=== PATIENT | male | born 1950 | race American Indian/Alaskan Native ===

== ENCOUNTER 2017-05-10 05:25 | Inpatient (IN) | payer OTHER, BC ==
[2017-05-06 07:53] VITALS: BMI 30.9
[~2017-05-10 05:25] MED LIST: BACITRACIN 15 GM TUBE TOPICAL OINTMENT TP ONE
[2017-05-10] MEDS ORDERED: ROCURONIUM BROMIDE 50 MG/5 ML VIAL ONE (07:53)
[2017-05-10] MEDS ORDERED: SUCCINYLCHOLINE CHLORIDE 200 MG/10 ML VIAL ONE (07:53)
[2017-05-10] MEDS ORDERED: PROPOFOL 20 ML ONE ×12 (07:53→12:59)
[2017-05-10] MEDS ORDERED: MIDAZOLAM HCL 2 MG/2 ML SINGLE DOSE VIAL ONE ×5 (07:53)
[2017-05-10] MEDS ORDERED: BACITRACIN 15 GM TUBE TOPICAL OINTMENT ONE (07:56)
[2017-05-10] MEDS ORDERED: CEFAZOLIN 2 GM in DEXTROSE 5%-WATER - 100 ML IVPB ONE (08:27)
--- NOTE | 2017-05-10 08:30 | HP ---
Admitting History and Physical - Admission History of Present Illness: The patient is a 67 yo male who presents today for revision of L4-S1 fusion. He originally had surgery 12/23/15 with a L4-S1 laminectomy and fusion. He did not heal the fusion well despite wearing a LSO brace and use of an external bone stimulator. The patient ambulates with a cane has has a right foot drop. He denies any CP, SOB, fevers. History Source: Patient Limitations to Obtaining History: No Limitations - Past Medical History Cardiovascular: Yes: Aneurysm, HTN, Hyperlipdemia Gastrointestinal: Yes: GERD Renal/: No: Renal Failure, UTI Psych: Yes: Depression Musculoskeletal: Yes: Other (right foot drop) Endocrine: Yes: Diabetes Mellitus Additional Past Medical History: glaucoma - Past Surgical History Additional Past Surgical History: 12/23/15 L4-S1 spinal fusion - Smoking History Smoking history: Former smoker Have you smoked in the past 12 months: No If you are a former smoker, when did you quit?: 2004 - Alcohol/Substance Use Hx Alcohol Use: No - Social History ADL: Independent History of Recent Travel: No Home Medications - Allergies Allergies/Adverse Reactions: Allergies Allergy/AdvReac Type Severity Reaction Status Date / Time codeine Allergy Intermediate Itching Verified 05/10/17 06:47 morphine Allergy Unknown Verified 05/06/17 08:10 - Home Medications Home Medications: Ambulatory Orders Bimatoprost [Lumigan] 2.5 ml OP HS 12/13/15 Cyclobenzaprine HCl [Flexeril -] 10 mg PO TID PRN 12/13/15 Metoprolol Succinate [Toprol XL -] 1 tab PO DAILY 12/13/15 Olmesartan/Hydrochlorothiazide [Benicar Hct 20-12.5 mg Tablet] 1 tab PO DAILY Atorvastatin Ca [Lipitor] 20 mg PO HS tablet 12/26/15 Hydrochlorothiazide [Hctz -] 12.5 mg PO DAILY cap 12/26/15 Insulin Sliding Scale [Novolog Vial Sliding Scale -] 1 vial SQ ACHS units 12/26 Loratadine [Claritin -] 10 mg PO DAILY PRN #30 tablet 12/26/15 Pantoprazole Sodium [Protonix -] 20 mg PO DAILY tablet.ec 12/26/15 Sitagliptin Phosphate [Januvia -] 50 mg PO DAILY@0700 tablet 12/26/15 Tapentadol Hydrochloride [Nucynta -] 50 mg PO Q6H PRN #0 tablet 12/26/15 Timolol 0.5% [Timoptic 0.5%] 1 drop OU BID drops 12/26/15 Valsartan [Diovan] 160 mg PO DAILY tablet 12/26/15 Aspirin [ASA -] 81 mg PO DAILY 05/06/17 Insulin (Novolog 70/30) [Novolog Mix 70/30 Flexpen -] 0 units SQ TID 05/06/17 Sertraline HCl 50 mg PO DAILY 05/06/17 Sitagliptin Phos/Metformin HCl [Janumet 50-500 mg Tablet] 1 each PO BID Review of Systems - Review of Systems Constitutional: denies: Chills, Fever Neck: denies: Decreased ROM, Pain on Movement Cardiovascular: denies: Chest Pain, Edema, Palpitations Respiratory: denies: Cough, SOB Gastrointestinal: denies: Abdominal Pain, Melena Genitourinary: denies: Burning, Dysuria Musculoskeletal: reports: Back Pain, Extremity Pain (to b/l lower ext). denies : Joint Pain, Joint Swelling Neurological: reports: Parasthesia (to b/l lower ext), Other (right foot drop). denies: Headache, Seizure Hematology/Lymphatic: denies: Easily Bruised, Excessive Bleeding Physical Examination Vital Signs: Vital Signs Temperature Pulse Rate Respiratory Rate Blood Pressure O2 Sat by Pulse Oximetry (%) 99 05/10/17 06:45 Constitutional: Yes: Well Nourished, Calm Eyes: Yes: Conjunctiva Clear. No: Sclera Icterus HENT: Yes: WNL, Atraumatic, Normocephalic Neck: Yes: WNL, Supple, Trachea Midline Cardiovascular: Yes: WNL, Regular Rate and Rhythm Respiratory: Yes: WNL, Regular, CTA Bilaterally Gastrointestinal: Yes: WNL, Normal Bowel Sounds, Soft Extremities: No: Calf Tenderness, Cold Edema: No Peripheral Pulses WNL: Yes Peripheral Pulses: Left Doralis Pedis: 1+, Right Dorsalis Pedis: 1+ Wound/Incision: Yes: Clean/Dry, Well Approximated (to lower back) Neurological: Yes: WNL, Oriented ...Motor Strength: WNL, LUE, LLE, RUE, RLE (4/5 dorsi flexion, plantar extension to the right) Psychiatric: Yes: WNL, Alert, Oriented Assessment/Plan A/P: 67 yo male for revision of L4-S1 interbody fusion secondary to non healing fusion and right S1 disconnected screw/junction. He is also noted to have T10- 11 disc protrusion He remains npo and take his beta concepcion this am DVT ppx with Adilson/SCDs Iv abx at time of skin incision medical/clearance with cardiology clearance in his chart, nuclear stress test 04/30/17 without any ischemia
[2017-05-10] MEDS ORDERED: ceFAZolin SODIUM 1 GM VIAL IVPB ONE (09:30)
[2017-05-10] MEDS ORDERED: THROMBIN (BOVINE) 5,000 UNIT VIAL TP ONE (09:40)
[2017-05-10] MEDS ORDERED: BACITRACIN 50,000 UNITS VIAL TP ONE ×2 (09:40→12:30)
[2017-05-10] MEDS ORDERED: BUPIVACAINE HCL/PF 0.5% (5MG/ML) 10 ML VIAL IJ ONE (10:43)
[2017-05-10] MEDS ORDERED: METOPROLOL TARTRATE 5 MG/5 ML VIAL ONE (12:51)
[2017-05-10] MEDS ORDERED: hydrALAZINE HCL 20 MG/ML VIAL ONE (13:14)
[2017-05-10] MEDS ORDERED: ONDANSETRON 4 MG/2 ML VIAL ONE (13:41)
--- NOTE | 2017-05-10 13:59 | OP ---
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
[2017-05-10] MEDS ORDERED: BACITRACIN 15 GM TUBE TOPICAL OINTMENT TP ONE (14:19)
[2017-05-10] MEDS ORDERED: BISACODYL 10 MG SUPP.RECT RC PRN (14:20)
[2017-05-10] MEDS ORDERED: TAPENTADOL HYDROCHLORIDE 50 MG TABLET PO PRN (14:23)
[2017-05-10] MEDS ORDERED: LORATADINE 10 MG TABLET PO PRN (14:23)
[2017-05-10] MEDS ORDERED: HYDROmorphone HCL CARPU-JECT 1 MG/1 ML DISP.SYRIN IVPUSH PRN (14:44)
[2017-05-10] MEDS ORDERED: LACTATED RINGERS SOLUTION 1,000 ML IV SCH (14:45)
[2017-05-10 15:41] LABS: MCH 34.2 pg (25.7-33.7); MCHC 34.1 g/dl (32.0-35.9); MEAN CELL VOLUME 100.4 fl (80-96); MEAN PLT VOLUME 8.4 fl (7.5-11.1); PLATELET COUNT 155 K/MM3 (134-434); RDW 14.5 % (11.9-15.9); WHITE BLOOD COUNT 10.6 K/mm3 (4.0-10.0)
[2017-05-10] MEDS ORDERED: HYDROmorphone *PCA* 10MG/50ML DISP.SYRIN PCA ONE (15:43)
[2017-05-10 16:10] LABS: ANION GAP 11 (8-16); CALCIUM 8.5 mg/dL (8.5-10.1); CO2 25 mmol/L (21-32); CREATININE 0.9 mg/dL (0.7-1.3); GLUCOSE,RANDOM 220 mg/dL (74-106)
--- NOTE | 2017-05-10 16:27 | SURG ---
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 For further detail, please refer to operative report. Visit type - Case Type Case Type: Scheduled Admission - Emergency Emergency Visit: No - New patient This patient is new to me today: Yes Date on this admission: 05/10/17 - Critical Care Critical Care patient: No
[2017-05-10] MEDS: D5-1/2NS+20 MEQ KCL - 1,000 ML IV SCH (16:55)
[2017-05-10] MEDS: INSULIN SLIDING SCALE (NOVOLOG) 1 VIAL SQ SCH ×2 (17:47→22:15)
--- NOTE | 2017-05-10 17:51 | PN ---
Progress Note (short form) - Note Progress Note: NEUROSURGERY Mild incisional pain Still sleepy Seen in PACU earlier AF, VSS Moving B UE/LE; R LE weaker as previously Dressing intact Cont BILL drain Labs OK PT in am OOB with LSO brace Findings including MEP d/w family ERP MANAGER for pain
[2017-05-10] MEDS ORDERED: ceFAZolin SODIUM 1 GM VIAL ONE ×2 (17:59→21:43)
[2017-05-10] MEDS ORDERED: CEFAZOLIN 1 GM/D5W 50 ML IVPB SCH (18:00)
[2017-05-10] MEDS ORDERED: DEXTROSE 5%-WATER - 50 ML IVPB ONE ×2 (18:00→21:43)
[2017-05-10] MEDS: CEFAZOLIN 1 GM in DEXTROSE 5%-WATER - 50 ML IVPB SCH (18:02)
[2017-05-10] MEDS ORDERED: ACETAMINOPHEN 1000 MG/100 ML VIAL (NON FORMULARY) IVPB ONE (20:30)
[2017-05-10] MEDS: diazePAM 5 MG TABLET PO SCH ×2 (22:07→22:08)
[2017-05-10] MEDS: TIMOLOL 0.5% OPHTHALMIC SOL 5 ML BOTTLE OU SCH (22:08)
[2017-05-10] MEDS: DOCUSATE SODIUM 100 MG CAPSULE (FP) PO SCH (22:09)
[2017-05-10] MEDS: ATORVASTATIN CA 20 MG TABLET (FP) PO SCH (22:09)
[2017-05-11] MEDS: CEFAZOLIN 1 GM in DEXTROSE 5%-WATER - 50 ML IVPB SCH ×2 (01:58→10:24)
[2017-05-11] MEDS: INSULIN SLIDING SCALE (NOVOLOG) 1 VIAL SQ SCH ×4 (06:29→22:00)
[2017-05-11] MEDS: diazePAM 5 MG TABLET PO SCH ×3 (06:31→22:01)
[2017-05-11] MEDS: DOCUSATE SODIUM 100 MG CAPSULE (FP) PO SCH ×3 (06:31→22:00)
[2017-05-11] MEDS: ACETAMINOPHEN 325 MG TABLET (FP) PO PRN ×2 (06:32→22:02)
[2017-05-11] MEDS: sitaGLIPtin PHOSPHATE 50 MG TABLET PO SCH (06:38)
[2017-05-11 07:51] LABS: MCH 34.9 pg (25.7-33.7); MCHC 34.7 g/dl (32.0-35.9); MEAN CELL VOLUME 100.6 fl (80-96); MEAN PLT VOLUME 8.5 fl (7.5-11.1); PLATELET COUNT 123 K/MM3 (134-434); RDW 14.6 % (11.9-15.9); WHITE BLOOD COUNT 10.3 K/mm3 (4.0-10.0)
--- NOTE | 2017-05-11 08:20 | PN ---
Progress Note (short form) - Note Progress Note: NEUROSURGERY Moderate incisional pain Still sleepy Seen in PACU earlier Tmax 101; now 100, MO 110's, VSS Drain 180cc yesterday; 70cc today Moving B UE/LE; R LE weaker as previously Dressing changed; some drainage on drain site Cont BILL drain WBC 10.3, Hgb 11.7; Cr 0.9, BUN 13; glucose 220 PT/OOB Cont iv abx with drain and temp OOB with LSO brace CORPORATE ASSOCIATE ATTORNEY for pain D/C drain tomorrow if decreasing output D/C Kumar in AM
--- NOTE | 2017-05-11 08:41 | PN ---
Progress Note (short form) - Note Progress Note: Cardiology Consult Dictated Sinus tachycardia s/p lumbar and thoracic laminectomies, and revision of prior laminectomy Chronic HTN DM Stable 4cm thoracic aortic aneurysm Mild bilateral carotid atheromatous dz REC: Probable physiologic sinus tach post op, due to post op pain. Rocky continue home meds as ordered for now. Hydrate, analgesia. ECG
[2017-05-11] MEDS ORDERED: PATIENT'S OWN MEDICATION (NON-FORMULARY) (Olmesartan/Hydrochlorothiazide [Benicar Hct 20-1 PO SCH (10:00)
[2017-05-11] MEDS ORDERED: PT OWN MED DRAWER 7, Y5N ONE ×2 (10:18→18:12)
[2017-05-11] MEDS ORDERED: ceFAZolin SODIUM 1 GM VIAL ONE (10:18)
[2017-05-11] MEDS ORDERED: DEXTROSE 5%-WATER - 50 ML IVPB ONE (10:18)
[2017-05-11] MEDS: VALSARTAN 160 MG TABLET (UD) PO SCH (10:24)
[2017-05-11] MEDS: HYDROCHLOROTHIAZIDE 12.5 MG CAPSULE (FP) PO SCH (10:25)
[2017-05-11] MEDS: PANTOPRAZOLE 20 MG TABLET (FP) PO SCH (10:25)
[2017-05-11] MEDS: SERTRALINE HCL 50 MG TABLET (FP) PO SCH (10:25)
[2017-05-11] MEDS: METOPROLOL SUCCINATE 25 MG TAB.SR.24H (FP) PO SCH (10:25)
--- NOTE | 2017-05-11 11:18 | CONS ---
CARDIOLOGY CONSULTATION DATE OF CONSULTATION: 05/11/2017 REQUESTING PHYSICIAN: Feliciano Hagan MD REASON FOR CONSULTATION: Tachycardia. HISTORY OF PRESENT ILLNESS: The patient is a 67-year-old male with past medical history of hypertension; hyperlipidemia; diabetes; chronic diastolic CHF; stable small, 4-cm thoracic aortic aneurysm; bilateral nonobstructive carotid artery disease; who is postoperative day 1 after partial T10/T11 laminectomies, T11 transpedicular decompression with microdissection, and expansion of prior laminectomies at L3-4, L5-S1. We are called to evaluate him for mild sinus tachycardia postoperatively. Patient is alert and oriented, eating breakfast. He denies chest pain, shortness of breath, palpitations. He has a low-grade postoperative fever of 100 Fahrenheit and is complaining of mild back pain. His heart rate has been ranging between 115 and 120 in sinus tachycardia, with a stable blood pressure between 120 and 140 systolic. He is in no distress. PAST MEDICAL HISTORY: Outlined above and includes prior back surgeries. ALLERGIES: He is allergic to CODEINE and MORPHINE. ACTIVE MEDICATIONS: Include Tylenol 650 p.o. q.6 p.r.n., Lipitor 20 nightly, cefazolin, valium 5 mg p.o. t.i.d., Colace, hydrochlorothiazide 12.5 daily, Dilaudid p.r.n., insulin sliding scale, Toprol-XL 25 mg daily, Zofran 4 mg q.6 p.r.n., Protonix 20 mg daily, Zoloft 50 mg daily, Januvia 50 mg daily, Diovan 160 mg daily. FAMILY HISTORY: Noncontributory to this presentation. SOCIAL HISTORY: , former smoker. PHYSICAL EXAMINATION: General: Alert, oriented. No distress. HEENT: Anicteric. Vital Signs: Temperature 100 Fahrenheit; pulse 116, regular; blood pressure 129/78. Neck: No bruits. Heart: S1, S2. Regular rate and rhythm. No murmurs. Chest: Clear. Abdomen: Mildly distended. Positive bowel sounds. No rebound or guarding. Extremities: No edema. EKG is pending. DATA: Nuclear stress test with Persantine April 30, 2017: No ischemia. EF 48%. CTA chest, [facility], July 2016: Stable 4-cm, diffuse thoracic aortic aneurysm, unchanged from prior. Labs: White count 10.3, hematocrit 33.6, platelets 123. Sodium 139, potassium 4.2, BUN 13, creatinine 0.9, glucose 220, calcium 8.5. IMPRESSION: 1. Probable physiologic sinus tachycardia postoperatively. 2. Hypertension, chronic. 3. Diabetes. 4. Stable 4-cm thoracic aortic aneurysm. PLAN: 1. Continue hydration and analgesia for his mild postoperative pain. Heart rate should improve with hydration and control of postoperative pain. 2. Would continue home blood pressure medications as ordered. 3. EKG today. Thank you for the consultation. DANDRE SILVA M.D. [id number]
[2017-05-11] MEDS ORDERED: INSULIN (NOVOLOG) ASPART 100 UNITS/ML 10ML VIAL ONE (12:14)
[2017-05-11] MEDS: TIMOLOL 0.5% OPHTHALMIC SOL 5 ML BOTTLE OU SCH ×2 (13:00→22:01)
--- NOTE | 2017-05-11 13:12 | EKG ---
Test Reason : Blood Pressure : / mmHG Vent. Rate : 122 BPM Atrial Rate : 122 BPM P-R Int : 168 ms QRS Dur : 072 ms QT Int : 330 ms P-R-T Axes : 035 -33 008 degrees QTc Int : 470 ms SINUS TACHYCARDIA WITH OCCASIONAL SUPREVENTRICULAR PREMATURE BEATS LEFT AXIS DEVIATION NONSPECIFIC ST ABNORMALITY WHEN COMPARED WITH ECG OF 28-APR-2017 09:44, APPEARANCE OF SPBs Confirmed by LALO HERNANDEZ MD ([id number]) on 05/11/2017 1:11:46 PM Referred By: Dez LABOY Confirmed By:LALO HERNANDEZ MD
--- NOTE | 2017-05-11 14:49 | PN ---
Progress Note (short form) - Note Progress Note: Anesthesiology Postoperative Follow Up Note 67 yo M with a PMH of HTN, HLD, DM, diastolic CHF, stable 4cm thoracic AAA, bilateral nonobstructive carotid disease who is POD1 redo spinal fusion and decompression with EBL 150cc. Patient had sinus tachycardiac today to 120s and was seen by dwarf tree grower, EKG showed sinus tachycardia at 122bpm with occassional PVCs, no acute changes. Patient is receiving Dialaudid AUTOMOTIVE SERVICE MANAGER with 70 demands, 19 deliveries (4.8 mg total including additional bolus doses by the nurse as patient was in pain earlier today). He is currently sleeping but arousable and AOx3. VSS, labs stable. 67 yo M POD1 redo spinal fusion and decompression, with sinus tachycardia no signs of ischemia, sleeping comfortably on Dilaudid AUTOMOTIVE SERVICE MANAGER. Decrease AUTOMOTIVE SERVICE MANAGER over next 24 hours to improve mental status and better evaluate patient's pain. Geneva Dean MD Anesthesiology
[2017-05-11] MEDS: HYDROmorphone *PCA* 10MG/50ML DISP.SYRIN PCA SCH ×2 (17:46→18:43)
[2017-05-11] MEDS: D5-1/2NS+20 MEQ KCL - 1,000 ML IV SCH ×2 (17:49→17:51)
[2017-05-11] MEDS: INSULIN (NOVOLOG MIX 70/30) 100 UNITS/ML MDV SQ SCH ×2 (17:52→21:57)
[2017-05-11] MEDS ORDERED: HYDROmorphone *PCA* 10MG/50ML DISP.SYRIN PCA ONE (18:25)
[2017-05-11] MEDS: BIMATOPROST OP SCH ×2 (18:45→22:04)
[2017-05-11] MEDS: ATORVASTATIN CA 20 MG TABLET (FP) PO SCH (22:00)
[2017-05-12] MEDS ORDERED: PT OWN MED DRAWER 7, Y5N ONE ×3 (06:02→11:22)
[2017-05-12] MEDS: sitaGLIPtin PHOSPHATE 50 MG TABLET PO SCH (06:21)
[2017-05-12] MEDS: metFORMIN HCL 500 MG TABLET (FP) PO SCH (06:21)
[2017-05-12] MEDS: DOCUSATE SODIUM 100 MG CAPSULE (FP) PO SCH ×3 (06:21→21:47)
[2017-05-12] MEDS: diazePAM 5 MG TABLET PO SCH ×3 (06:21→21:47)
[2017-05-12] MEDS: INSULIN SLIDING SCALE (NOVOLOG) 1 VIAL SQ SCH ×4 (06:22→22:00)
[2017-05-12] MEDS ORDERED: INSULIN (NOVOLOG) ASPART 100 UNITS/ML 10ML VIAL ONE ×4 (07:03→21:59)
--- NOTE | 2017-05-12 08:06 | PN ---
Progress Note (short form) - Note Progress Note: NEUROSURGERY POD #2 Moderate incisional pain Tmax 100, now 99.4 VSS Cardiology input appreciated Drain 110cc/130/25cc CV- RR; Lungs- decreased BS at bases; Abd- obese, benign; Ext- no sign of DVT Moving B UE/LE R DF 3-4- improved, R PF 4/5; L DF/PF 4+-5 Dressing changed; some drainage on drain site D/C BILL drain PT/OOB OOB with LSO brace ACCOUNT ANALYST for pain D/C Kumar today Observe wound/dressing changes Likely would need rehab given pre-op deficits
--- NOTE | 2017-05-12 08:29 | PN ---
Progress Note, Physician Chief Complaint: denies chest pain or SOB History of Present Illness: ECG confirms sinus tach - Current Medication List Current Medications: Active Medications Acetaminophen (Tylenol -) 650 mg PO Q6H PRN PRN Reason: FEVER Last Admin: 05/11/17 22:02 Dose: 650 mg Atorvastatin Calcium (Lipitor -) 20 mg PO HS [facility] Last Admin: 05/11/17 22:00 Dose: 20 mg Bisacodyl (Dulcolax Suppository -) 10 mg RC DAILY PRN PRN Reason: CONSTIPATION Diazepam (Valium -) 5 mg PO TID [facility] Last Admin: 05/12/17 06:21 Dose: 5 mg Docusate Sodium (Colace -) 100 mg PO TID [facility] Last Admin: 05/12/17 06:21 Dose: 100 mg Hydrochlorothiazide (Hctz -) 12.5 mg PO DAILY [facility] Last Admin: 05/11/17 10:25 Dose: 12.5 mg Hydromorphone HCl (Dilaudid Mapping Technician -) 0 mg DIRECTOR PRIVATE MUSIC THERAPY AGENCY DIRECTOR PRIVATE MUSIC THERAPY AGENCY [facility] PRN Reason: Protocol Stop: 05/13/17 14:46 Last Admin: 05/11/17 18:43 Dose: 0.2 mg Hydromorphone HCl (Dilaudid Injection -) 0.25 mg IVPUSH [id number] PRN PRN Reason: PAIN Stop: 05/13/17 14:45 Potassium Chloride/Dextrose/Sod Cl (D5-1/2ns+20 Meq Kcl -) 1,000 mls @ 42 mls/ hr IV ASDIR [facility] Last Admin: 05/11/17 17:51 Dose: Not Given Cefazolin Sodium 1 gm/ (Dextrose) 50 mls @ 100 mls/hr IVPB Q8H-IV OVI Insulin Aspart (Novolog Vial Sliding Scale -) 1 vial SQ ACHS [facility] PRN Reason: Protocol Last Admin: 05/12/17 06:22 Dose: 2 units Insulin Aspart (Novolog Mix 70/30 Vial) 40 units SQ BID [facility] Last Admin: 05/11/17 21:57 Dose: Not Given Loratadine (Claritin -) 10 mg PO DAILY PRN PRN Reason: NASAL CONGESTION Metformin HCl (Glucophage -) 500 mg PO DAILY@0700 [facility] Last Admin: 05/12/17 06:21 Dose: Not Given Metoprolol Succinate (Toprol Xl -) 25 mg PO DAILY [facility] Last Admin: 05/11/17 10:25 Dose: 25 mg Bimatoprost [Lumigan ] Eyedrop 2.5 Ml (Pt 's Own) 2.5 ml OP HS [facility] Last Admin: 05/11/17 22:04 Dose: 2.5 ml Ondansetron HCl (Zofran Injection) 4 mg IVPB Q6H PRN PRN Reason: NAUSEA AND/OR VOMITING Pantoprazole Sodium (Protonix -) 20 mg PO DAILY [facility] Last Admin: 05/11/17 10:25 Dose: 20 mg Sertraline HCl (Zoloft -) 50 mg PO DAILY [facility] Last Admin: 05/11/17 10:25 Dose: 50 mg Sitagliptin Phosphate (Januvia -) 50 mg PO DAILY@0700 [facility] Last Admin: 05/12/17 06:21 Dose: Not Given Tapentadol (Nucynta -) 50 mg PO Q6H PRN PRN Reason: PAIN Timolol Maleate (Timoptic 0.5%) 1 drop OU BID [facility] Last Admin: 05/11/17 22:01 Dose: 1 drop Valsartan (Diovan -) 160 mg PO DAILY [facility] Last Admin: 05/11/17 10:24 Dose: 160 mg - Objective Vital Signs: Vital Signs Temperature 99.4 F 05/12/17 06:00 Pulse Rate 115 H 05/12/17 06:00 Respiratory Rate 20 05/12/17 06:00 Blood Pressure 129/82 05/12/17 06:00 O2 Sat by Pulse Oximetry (%) 100 05/11/17 21:00 Constitutional: Yes: No Distress Eyes: Yes: Conjunctiva Clear Cardiovascular: Yes: Regular Rate and Rhythm Respiratory: Yes: Other (= breath sounds bilaterally, no wheezing) Gastrointestinal: Yes: Soft Edema: No Neurological: Yes: Alert, Oriented Labs: CBC, BMP 05/11/17 06:00 05/10/17 15:10 - ....Imaging EKG: Image Reviewed Assessment/Plan Sinus tachycardia s/p lumbar and thoracic laminectomies, and revision of prior laminectomy Chronic HTN DM Stable 4cm thoracic aortic aneurysm Mild bilateral carotid atheromatous dz REC: Physiologic sinus tach post op, due to post op pain. Will resolve as patient recovers from surgery. Continue hydration and analgesia. DVT prophylaxis.
[2017-05-12] MEDS ORDERED: ceFAZolin SODIUM 1 GM VIAL ONE ×2 (09:22→17:27)
[2017-05-12] MEDS ORDERED: DEXTROSE 5%-WATER - 50 ML IVPB ONE ×2 (09:23→17:27)
[2017-05-12] MEDS: CEFAZOLIN 1 GM in DEXTROSE 5%-WATER - 50 ML IVPB SCH ×2 (09:44→17:54)
[2017-05-12] MEDS: PANTOPRAZOLE 20 MG TABLET (FP) PO SCH (09:44)
[2017-05-12] MEDS: SERTRALINE HCL 50 MG TABLET (FP) PO SCH (09:44)
[2017-05-12] MEDS: HYDROCHLOROTHIAZIDE 12.5 MG CAPSULE (FP) PO SCH (09:44)
[2017-05-12] MEDS: METOPROLOL SUCCINATE 25 MG TAB.SR.24H (FP) PO SCH (09:44)
[2017-05-12] MEDS: VALSARTAN 160 MG TABLET (UD) PO SCH (09:44)
[2017-05-12] MEDS: TIMOLOL 0.5% OPHTHALMIC SOL 5 ML BOTTLE OU SCH ×2 (09:45→21:50)
--- NOTE | 2017-05-12 11:47 | OP ---
DATE OF OPERATION: 05/10/2017 PREOPERATIVE DIAGNOSES: 1. 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 2. L4-S1 nonunion. 3. Chronic right foot drop. 4. Diabetes. 5. Hypertension/coronary artery disease. POSTOPERATIVE DIAGNOSES: 1. 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 2. L4-S1 nonunion. 3. Chronic right foot drop. 4. Diabetes. 5. Hypertension/coronary artery disease. ATTENDING SURGEON: Feliciano Hagan MD TICKET DISPATCHER: TIERRA Romano ESTIMATED BLOOD LOSS: Was 150. ANESTHESIA: General endotracheal. ANESTHESIOLOGIST: Ada Melton MD FINDINGS: 1. Marked canal stenosis T10-T11 with very sensitive thoracic roots in response to cautery stimulation. 2. Mostly calcified and firm disk protrusion, left T10-T11. 3. Nonunion of fusion at L4, 5 and S1 with loosened spinal implant, left L4 and right S1, with loosened pedicle screw, left L5 and S1. 4. Dense epidural fibrosis, L3-L4 stenosis. PROCEDURE: 1. Thoracic transpedicular decompression T10-11 including right-sided partial T10-11 laminectomy for spinal canal decompression with resection of ligamentum flavum (17317, 83706). 2. Microsurgical dissection with operative microscope and microsurgical technique (52755). 3. Autologous bone graft fusion T10-T11 bilaterally in the posterolateral surface of the thoracic spine (28252). 4. Re-exploration of prior lumbar laminectomies L4, 5, and S1 and new bilateral partial L3 laminectomy for decompression of bilateral L3, L4, L5, and S1 nerve roots (02685-28-67, 05516, 36739, and 70588). 5. Removal of prior posterior lumbar instrumentation system (08624). 6. Placement of new lumbar pedicle screw fixation system from L4 to S1 with [employer] Spine via 4.5 titanium system (08668), (bilateral 6.5 x 55 mm pedicle screws at L4, right 6.5 x 50 mm right L5 pedicle screw, 7.5 x 50 mm left L5 pedicle screw, 7.5 x 45 mm right S1 pedicle screw, 8.5 x 45 mm left S1 pedicle screw, both sides with 60 -mm rods and locking screws). 7. Redo posterior lumbar fusion L4-5 and L5-S1 for nonunion (14026, 56687). 8. Utilization of demineralized bone matrix with 1 mL of Chele for the thoracic fusion and 10 mL of [place] BIO4 for lumbar redo fusion (72125). 9. Intraoperative fluoroscopy for placement of pedicle screws (02916-69), as well as for thoracic spine localization. INDICATIONS: The patient is a 67-year-old male who has back pain and lumbar radiculopathy. He had developed a progressive foot drop. He underwent lumbar fusion a year plus ago with initially a decent outcome, but he has continued to deteriorate neurologically. He was found to have nonunion of fusion and was advised to undergo redo fusion procedure several months ago, but he declined. His condition continued to deteriorate and recently, he has been falling. MRI of the lumbar spine demonstrated there was some lateral restenosis at L4-5 to L5-S1 as well as moderate central stenosis at L3-4. He was also found to have a thoracic disk herniation at T10-T11 with a thickened ligamentum flavum. He has therefore been consented for posterior thoracic decompression as well as lumbar redo decompression as well as redo fusion with instrumentation. The risks of the procedure did include but are not limited to bleeding, infection, dural tear with CSF leak, neurological injury, increased thromboembolic risks, paralysis, and other risks of general anesthesia. Because of the redo nature of the surgery as well as his history of diabetes, his risks are higher, and he understands that. No guarantees were given for a favorable outcome. PROCEDURE IN DETAIL: After the patient was taken to the operating room, he was placed in supine position. After general anesthesia was induced and appropriate monitoring lines were placed, SSEP, EMG, and MEP electrodes were placed by a highway maintenance technician. A Kumar catheter was also inserted. He was then turned into a prone position on a Jc frame. All pressure points were checked and padded. Bilateral lower extremity O2 saturation was greater than 95%. The thoracic incision was first marked with fluoroscopic imaging in the AP plane. An approximately 1-1/2 to 2- inch incision was made. This was after the patient was sterilely prepped and draped. Subperiosteal dissection was carried out with subperiosteal elevator and monopolar electrocautery. The nerve root was assured quite sensitive to bipolar electrocautery stimulation. The T10 and T11 lamina were exposed bilaterally. A self-retaining retractor was inserted. This was further localized by the AP and fluoroscopic imaging after the fluoroscope was draped sterilely. Partial right T10 and T11 laminectomy were carried out with preservation of midline structures. Underlying ligamentum flavum was extremely thickened. It was dissected free with an angled curette and resected with Kerrison rongeur. Attention was then turned to the left side, where partial left T10 and T11 laminectomy was carried out. The transpedicular approach through the medial aspect of the pedicle was carried out in order to gain access to the disk space without significant thecal sac retraction. This portion of the procedure was done with the use of operative microscope as well as the high-speed pneumatic drill. Microsurgical techniques were utilized. The disk material was palpated. It was fairly firm and almost calcified in nature. It was therefore decided that the disk space would not be violated which could potentially cause more instability locally. The lateral recess was decompressed up to the bottom of T10 pedicle as well. After decompression was completed, the posterolateral surface of the spine and proximal transverse process was decorticated with high-speed pneumatic drill and packed with 1 mL of [place]. Some autologous bone dust which was collected earlier was also used bilaterally. The bone graft was only placed after the wounds were irrigated with copious amount of irrigation, and 10 mL of 0.25% Marcaine were injected into the paraspinal muscles bilaterally. After hemostasis was obtained with bipolar electrocautery, posterior thoracic fascia was closed with 0 Vicryl suture, subcutaneous fascia was closed with 3-0 Vicryl sutures. The skin was closed with 4-0 Vicryl running subcuticular suture. Attention then turned to the prior lumbar incision, which was opened with a No. 10 blade. Subperiosteal dissection was carried out with periosteal elevator and monopolar electrocautery. Dense paraspinal epidural fibrosis was encountered. The L2-3 spinous process was encountered. The sacrum was also skeletonized. A prior implant was skeletonized with cautery and Leksell rongeur. The instrumentation was cleaned with pituitary rongeur as well as curettes. The locking mechanism was engaged, and the osteotome was used to free up the amadeo. The amadeo had been enlarged from the head of the right S1 pedicle screw as well as the head of the left L4 pedicle screw. Some metallic staining was noted at these 2 locations. At this point, after the amadeo was removed, the posterolateral surface of the spine was further cleaned with Leksell rongeur and this was then burred down with high-speed pneumatic drill to obtain good bleeding bone surfaces. Partial L3 laminectomy was also carried out as well as partial bilateral L4, L5 , S1 laminectomies to decompress the lateral recess as well as the lumbar nerve roots. Dense paraspinal epidural fibrosis was encountered, and dissection was slow. Dissection was meticulous; however, it did take quite an amount of time. Epidural hemostasis was obtained with bipolar electrocautery and thrombin-soaked powder Gelfoam. After decompression was completed, the pedicle screws at L4, L5, and S1 were removed. The left L5 and S1 pedicle screws were felt to be slightly loose. Therefore, larger screws were used at these 2 levels; 6.5 x 55 mm screws were used at L4 bilaterally, 6.5 x 50 mm screws were used at L5, and 7.5 x 50 mm screws were used on the left L5. For S1 pedicle screw, 7.5 x 45 mm screws were used on the right , and 8.5 x 45 mm screws were used on the left. Because of prior amadeo appeared to be slightly short, 16-mm rods were used bilaterally. They were locked down with locking screws. The posterolateral surface of the spine had been previously decorticated with the high-speed pneumatic drill and the pedicle screw thresholds had previously been tested and were all greater than 20 milliamps. Torquw/counter torque wrench was used for final tightening of the pedicle screw system. The posterolateral surface of the spine was then packed with 10 mL of [place] BIO4 Bone Graft/Stem Cell System. A #10 BILL drain was placed which came out through a separate stab incision in the right side. The wound had previously been irrigated with copious amount of antibiotic irrigation. Paraspinal hemostasis was obtained with bipolar electrocautery. Dorsal lumbar musculature and fascia were closed with 0 Vicryl suture. Subcuticular fascia was closed with 3-0 Vicryl suture. Skin was closed with 4-0 Vicryl running subcuticular suture. SSEP, EMG, and MEP signals remained stable throughout. The patient had diminished right lower extremity MEP from even prior to the incision being made. This was consistent with the patients preoperative foot drop and right lower extremity weakness and numbness. The patient received 1 dose of 2 g Ancef prior to the procedure. All needles and lap counts were correct. The family was updated as to the intraoperative findings. The OR timeout procedure was followed. FELICIANO HAGAN M.D. [id number] MTDD
[2017-05-12] MEDS: INSULIN (NOVOLOG MIX 70/30) 100 UNITS/ML MDV SQ SCH ×2 (12:14→22:01)
--- NOTE | 2017-05-12 15:19 | PN ---
Progress Note (short form) - Note Progress Note: Pain management folllow up POD#2, patient on dilaudid abstracter, tolerating po, will discontinue abstracter.
[2017-05-12] MEDS: HYDROmorphone *PCA* 10MG/50ML DISP.SYRIN PCA SCH (15:43)
[2017-05-12] MEDS: D5-1/2NS+20 MEQ KCL - 1,000 ML IV SCH (17:53)
[2017-05-12] MEDS: ATORVASTATIN CA 20 MG TABLET (FP) PO SCH (21:47)
[2017-05-12] MEDS: BIMATOPROST OP SCH (21:49)
[2017-05-12] MEDS: ACETAMINOPHEN 325 MG TABLET (FP) PO PRN (23:38)
[2017-05-13] MEDS ORDERED: ceFAZolin SODIUM 1 GM VIAL ONE ×3 (01:01→17:01)
[2017-05-13] MEDS ORDERED: DEXTROSE 5%-WATER - 50 ML IVPB ONE ×3 (01:01→17:02)
[2017-05-13] MEDS: CEFAZOLIN 1 GM in DEXTROSE 5%-WATER - 50 ML IVPB SCH ×3 (01:22→17:31)
[2017-05-13] MEDS: diazePAM 5 MG TABLET PO SCH ×3 (06:09→21:44)
[2017-05-13] MEDS: metFORMIN HCL 500 MG TABLET (FP) PO SCH (06:09)
[2017-05-13] MEDS: DOCUSATE SODIUM 100 MG CAPSULE (FP) PO SCH ×3 (06:09→21:44)
[2017-05-13] MEDS: sitaGLIPtin PHOSPHATE 50 MG TABLET PO SCH (06:09)
[2017-05-13] MEDS: INSULIN SLIDING SCALE (NOVOLOG) 1 VIAL SQ SCH ×4 (06:10→21:45)
--- NOTE | 2017-05-13 06:25 | PN ---
Progress Note (short form) - Note Progress Note: NEUROSURGERY POD #3 Moderate incisional pain More comfortable Tmax 99.2, now 98.4; VSS Cardiology input appreciated CV- RR; Lungs- decreased BS at bases; Abd- obese, benign; Ext- no sign of DVT Moving B UE/LE R DF 4- improved, R PF 4/5; L DF/PF 4+-5 Dressing with minimal drainage on top, bottom incision C/D/I PT/OOB OOB with LSO brace D/C WAREHOUSE CHECKER PO pain meds Observe wound/dressing changes Rehab given pre-op deficits
[2017-05-13] MEDS ORDERED: TAPENTADOL HYDROCHLORIDE 50 MG TABLET PO PRN (06:35)
--- NOTE | 2017-05-13 09:04 | PN ---
Progress Note, Physician Chief Complaint: BP under control Remains Tachy (sinus in 115-120 range), still having pain. - Current Medication List Current Medications: Active Medications Acetaminophen (Tylenol -) 650 mg PO Q6H PRN PRN Reason: FEVER Last Admin: 05/12/17 23:38 Dose: 650 mg Atorvastatin Calcium (Lipitor -) 20 mg PO HS [facility] Last Admin: 05/12/17 21:47 Dose: 20 mg Bisacodyl (Dulcolax Suppository -) 10 mg RC DAILY PRN PRN Reason: CONSTIPATION Diazepam (Valium -) 5 mg PO TID [facility] Last Admin: 05/13/17 06:09 Dose: 5 mg Docusate Sodium (Colace -) 100 mg PO TID [facility] Last Admin: 05/13/17 06:09 Dose: 100 mg Hydrochlorothiazide (Hctz -) 12.5 mg PO DAILY [facility] Last Admin: 05/12/17 09:44 Dose: 12.5 mg Potassium Chloride/Dextrose/Sod Cl (D5-1/2ns+20 Meq Kcl -) 1,000 mls @ 42 mls/ hr IV ASDIR [facility] Last Admin: 05/12/17 17:53 Dose: 42 mls/hr Cefazolin Sodium 1 gm/ (Dextrose) 50 mls @ 100 mls/hr IVPB Q8H-IV [facility] Last Admin: 05/13/17 01:22 Dose: 100 mls/hr Insulin Aspart (Novolog Vial Sliding Scale -) 1 vial SQ ACHS [facility] PRN Reason: Protocol Last Admin: 05/13/17 06:10 Dose: Not Given Insulin Aspart (Novolog Mix 70/30 Vial) 40 units SQ BID [facility] Last Admin: 05/12/17 22:01 Dose: 40 units Loratadine (Claritin -) 10 mg PO DAILY PRN PRN Reason: NASAL CONGESTION Metformin HCl (Glucophage -) 500 mg PO DAILY@0700 [facility] Last Admin: 05/13/17 06:09 Dose: 500 mg Metoprolol Succinate (Toprol Xl -) 25 mg PO DAILY [facility] Last Admin: 05/12/17 09:44 Dose: 25 mg Bimatoprost [Lumigan ] Eyedrop 2.5 Ml (Pt 's Own) 2.5 ml OP HS [facility] Last Admin: 05/12/17 21:49 Dose: 2.5 ml Ondansetron HCl (Zofran Injection) 4 mg IVPB Q6H PRN PRN Reason: NAUSEA AND/OR VOMITING Pantoprazole Sodium (Protonix -) 20 mg PO DAILY [facility] Last Admin: 05/12/17 09:44 Dose: 20 mg Sertraline HCl (Zoloft -) 50 mg PO DAILY [facility] Last Admin: 05/12/17 09:44 Dose: 50 mg Sitagliptin Phosphate (Januvia -) 50 mg PO DAILY@0700 [facility] Last Admin: 05/13/17 06:09 Dose: 50 mg Tapentadol (Nucynta -) 50 mg PO Q4H PRN PRN Reason: PAIN Timolol Maleate (Timoptic 0.5%) 1 drop OU BID [facility] Last Admin: 05/12/17 21:50 Dose: 1 drop Valsartan (Diovan -) 160 mg PO DAILY [facility] Last Admin: 05/12/17 09:44 Dose: 160 mg - Objective Vital Signs: Vital Signs Temperature 98.3 F 05/13/17 06:00 Pulse Rate 126 H 05/13/17 06:00 Respiratory Rate 20 05/13/17 06:00 Blood Pressure 145/91 05/13/17 06:00 O2 Sat by Pulse Oximetry (%) 99 05/12/17 21:00 Constitutional: Yes: No Distress Eyes: Yes: Conjunctiva Clear Cardiovascular: Yes: Regular Rate and Rhythm Respiratory: Yes: CTA Bilaterally (no wheezing) Gastrointestinal: Yes: Soft Edema: No Neurological: Yes: Alert, Oriented Labs: CBC, BMP 05/11/17 06:00 05/10/17 15:10 Assessment/Plan Assessment/Plan Sinus tachycardia s/p lumbar and thoracic laminectomies, and revision of prior laminectomy Chronic HTN DM Stable 4cm thoracic aortic aneurysm Mild bilateral carotid atheromatous dz REC: Physiologic sinus tach post op, due to post op pain. Will resolve as patient recovers from surgery. Continue hydration and analgesia. Continue home Toprol dose, would titrate if BP becomes elevated. DVT prophylaxis.
--- NOTE | 2017-05-13 09:15 | PATH ---
Surgical Pathology Report Patient Name: TIFFANIE LIZ Med. Rec. #: [id number] /Age/Gender: 1950 (Age: 67) / M Account: [id number] Location: [facility] MED/SURG Taken: 05/10/2017 Received: 05/11/2017 Reported: 05/13/2017 Physicians: Feliciano Hagan M.D. Specimen(s) Received HARDWARE FROM L-4 S1 Clinical History Thoracic spinal stenosis with radiculopathy Final Diagnosis ORTHOPEDIC HARDWARE, VERTEBRAL L4-S1, REMOVAL: METALLIC RODS AND SCREWS CONSISTENT WITH ORTHOPEDIC HARDWARE (GROSS ONLY). Electronically Signed Pedro Syed M.D. Gross Description Received fresh labeled "hardware from L4-S1," are 6 nova metallic screws ranging from 5.8-7.0 cm in length. Additionally, there are 2 nova metallic rods and 5 nova metallic smaller screws. The metallic rods measure 5.5 and 6.2 cm in greatest dimension. The smaller screws average 0.4 cm in length and 0.8 cm in diameter. No soft tissue is present. No sections are submitted, gross only. /05/11/2017 saudi05/11/2017
[2017-05-13] MEDS: HYDROmorphone HCL CARPU-JECT 2 MG/1 ML DISP.SYRIN IVPB PRN ×2 (09:31→17:08)
[2017-05-13] MEDS: PANTOPRAZOLE 20 MG TABLET (FP) PO SCH (09:39)
[2017-05-13] MEDS: HYDROCHLOROTHIAZIDE 12.5 MG CAPSULE (FP) PO SCH (09:39)
[2017-05-13] MEDS: VALSARTAN 160 MG TABLET (UD) PO SCH (09:39)
[2017-05-13] MEDS: INSULIN (NOVOLOG MIX 70/30) 100 UNITS/ML MDV SQ SCH ×2 (09:39→17:08)
[2017-05-13] MEDS: SERTRALINE HCL 50 MG TABLET (FP) PO SCH (09:40)
[2017-05-13] MEDS: METOPROLOL SUCCINATE 25 MG TAB.SR.24H (FP) PO SCH (09:40)
[2017-05-13] MEDS ORDERED: PT OWN MED DRAWER 7, Y5N ONE ×2 (09:44→10:04)
[2017-05-13] MEDS: TIMOLOL 0.5% OPHTHALMIC SOL 5 ML BOTTLE OU SCH ×2 (09:52→21:44)
[2017-05-13] MEDS ORDERED: INSULIN (NOVOLOG MIX 70/30) 100 UNITS/ML MDV SQ ONE ×2 (10:05→17:22)
[2017-05-13] MEDS ORDERED: INSULIN (NOVOLOG) ASPART 100 UNITS/ML 10ML VIAL ONE ×3 (11:47→17:21)
[2017-05-13] MEDS: D5-1/2NS+20 MEQ KCL - 1,000 ML IV SCH ×2 (13:32→16:59)
--- NOTE | 2017-05-13 18:08 | PN ---
Progress Note (short form) - Note Progress Note: ID Consult dictated 67 y/o diabetic male POD # 3 laminectomy now with fever/ chills, hypotension, tachycardia. Complaining of epigastric pain Possible sepsis ? PE ? cardiac event Cultures ordered Obtain CT C/A/P Empiric zosyn/ vancomycin ICU evaluation
[2017-05-13] MEDS ORDERED: VANCOMYCIN 1,000 MG in DEXTROSE 5%-WATER - 250 ML IVPB SCH (18:15)
[2017-05-13 18:21] LABS: MCH 34.1 pg (25.7-33.7); MCHC 34.1 g/dl (32.0-35.9); MEAN CELL VOLUME 99.8 fl (80-96); MEAN PLT VOLUME 8.6 fl (7.5-11.1); PLATELET COUNT 153 K/MM3 (134-434); RDW 14.2 % (11.9-15.9); WHITE BLOOD COUNT 7.7 K/mm3 (4.0-10.0)
[2017-05-13] MEDS ORDERED: PIPERACILLIN/TAZOBACTAM 4.5 GM VIAL IVPB ONE (18:33)
[2017-05-13] MEDS ORDERED: DEXTROSE 5%-WATER 100 ML IVPB ONE (18:33)
[2017-05-13 18:38] LABS: ALBUMIN 2.7 g/dl (3.4-5.0); ALK PHOS 68 U/L (45-117); ANION GAP 9 (8-16); CO2 28 mmol/L (21-32); CREATININE 0.9 mg/dL (0.7-1.3); GLUCOSE,RANDOM 164 mg/dL (74-106); SGOT/AST 47 U/L (15-37); SGPT/ALT 32 U/L (12-78); TOT PROT 6.5 g/dl (6.4-8.2)
[2017-05-13] MEDS: PIPERACILLIN/TAZOB 4.5 GM 4.5 GM in DEXTROSE 5%-WATER 100 ML IVPB SCH (18:38)
[2017-05-13] MEDS: VANCOMYCIN 1 GRAM (PRE-DOCKED) 1,000 MG/250 ML BAG IVPB SCH (19:16)
--- NOTE | 2017-05-13 19:25 | PN ---
Progress Note (short form) - Note Progress Note: NEUROSURGERY POD #3 Had large BM earlier today Moderate incisional pain More gonzalez today Given Dilaudid PRN Tmax 100.6 now 99.6; VSS ID input appreciated CV- RR; Lungs- decreased BS at bases; Abd- obese, mildly distended; +BS; Ext- no sign of DVT Moving B UE/LE R DF 4- improved, R PF 4/5; L DF/PF 4+-5 Dressing C/D/I WBC 7.7; Hct 31.6; BUN 12, Cr 0.9, K 3.2, Na 137, Glucose 136; Ca 8.0 On vanco and Zosyn per ID Possible ICU monitoring CT chest t/o PE and CT abd r/o acute process OOB with LSO brace PO pain meds Observe wound/dressing change Give KCl x 40 mEq x1 Recheck labs in am Cardiology f/u Bowel regimen Pt condition and plan d/w
[2017-05-13] MEDS ORDERED: BISACODYL 10 MG SUPP.RECT RC PRN (19:30)
[2017-05-13] MEDS ORDERED: POTASSIUM CHLORIDE TABS 20 MEQ TABLET.ER (FP) PO ONE (19:30)
--- NOTE | 2017-05-13 21:37 | PN ---
Progress Note (short form) - Note Progress Note: [facility] Eval: CC: tachycardia HPI: 67 y/o man POD #3 after [B partial T10-T11 laminectomies; L T11 transpedicular decompression; microdissection; posterolateral fusion with autologous bone dust and 1 cc graft-on; Redo and expansion of prior laminectomies L3-4-5-S1 for decompression of lumar roots B L3,4,5, S1; removal of prior L4-5-S1 instrumentation; new L4-S1 Lidia Lulú 4.5 system; posterolateral fusion with Lidia Bio], with uneventful post-operative course but with residual tachycardia in setting of acute pain and abdominal distension. Medications reviewed Chart reviewed Ambulatory Orders Bimatoprost [Lumigan] 2.5 ml OP HS 12/13/15 Cyclobenzaprine HCl [Flexeril -] 10 mg PO TID PRN 12/13/15 Metoprolol Succinate [Toprol XL -] 1 tab PO DAILY 12/13/15 Olmesartan/Hydrochlorothiazide [Benicar Hct 20-12.5 mg Tablet] 1 tab PO DAILY Atorvastatin Ca [Lipitor] 20 mg PO HS tablet 12/26/15 Hydrochlorothiazide [Hctz -] 12.5 mg PO DAILY cap 12/26/15 Insulin Sliding Scale [Novolog Vial Sliding Scale -] 1 vial SQ ACHS units 12/26 Loratadine [Claritin -] 10 mg PO DAILY PRN #30 tablet 12/26/15 Pantoprazole Sodium [Protonix -] 20 mg PO DAILY tablet.ec 12/26/15 Sitagliptin Phosphate [Januvia -] 50 mg PO DAILY@0700 tablet 12/26/15 Tapentadol Hydrochloride [Nucynta -] 50 mg PO Q6H PRN #0 tablet 12/26/15 Timolol 0.5% [Timoptic 0.5%] 1 drop OU BID drops 12/26/15 Valsartan [Diovan] 160 mg PO DAILY tablet 12/26/15 Aspirin [ASA -] 81 mg PO DAILY 05/06/17 Insulin (Novolog 70/30) [Novolog Mix 70/30 Flexpen -] 0 units SQ TID 05/06/17 Sertraline HCl 50 mg PO DAILY 05/06/17 Sitagliptin Phos/Metformin HCl [Janumet 50-500 mg Tablet] 1 each PO BID Current Medications Acetaminophen (Tylenol -) 650 mg PO Q6H PRN PRN Reason: FEVER Last Admin: 05/12/17 23:38 Dose: 650 mg Atorvastatin Calcium (Lipitor -) 20 mg PO HS [facility] Last Admin: 05/12/17 21:47 Dose: 20 mg Bisacodyl (Dulcolax Suppository -) 10 mg RC DAILY PRN PRN Reason: CONSTIPATION Diazepam (Valium -) 5 mg PO TID [facility] Last Admin: 05/13/17 14:31 Dose: 5 mg Docusate Sodium (Colace -) 100 mg PO TID [facility] Last Admin: 05/13/17 14:31 Dose: 100 mg Hydrochlorothiazide (Hctz -) 12.5 mg PO DAILY [facility] Last Admin: 05/13/17 09:39 Dose: 12.5 mg Hydromorphone HCl (Dilaudid Injection -) 2 mg IVPB Q6H PRN Last Admin: 05/13/17 17:08 Dose: 2 mg Potassium Chloride/Dextrose/Sod Cl (D5-1/2ns+20 Meq Kcl -) 1,000 mls @ 42 mls/ hr IV ASDIR [facility] Last Admin: 05/13/17 16:59 Dose: Not Given Cefazolin Sodium 1 gm/ (Dextrose) 50 mls @ 100 mls/hr IVPB Q8H-IV [facility] Last Admin: 05/13/17 17:31 Dose: 100 mls/hr Piperacillin Sod/Tazobactam (Sod 4.5 gm/ Dextrose) 100 mls @ 200 mls/hr IVPB Q8H-IV [facility] PRN Reason: Protocol Last Admin: 05/13/17 18:38 Dose: 200 mls/hr Insulin Aspart (Novolog Vial Sliding Scale -) 1 vial SQ ACHS [facility] PRN Reason: Protocol Last Admin: 05/13/17 17:09 Dose: 2 units Insulin Aspart (Novolog Mix 70/30 Vial) 40 units SQ BIDAC [facility] Last Admin: 05/13/17 17:08 Dose: 40 units Loratadine (Claritin -) 10 mg PO DAILY PRN PRN Reason: NASAL CONGESTION Metformin HCl (Glucophage -) 500 mg PO DAILY@0700 [facility] Last Admin: 05/13/17 06:09 Dose: 500 mg Metoprolol Succinate (Toprol Xl -) 25 mg PO DAILY [facility] Last Admin: 05/13/17 09:40 Dose: 25 mg Bimatoprost [Lumigan ] Eyedrop 2.5 Ml (Pt 's Own) 2.5 ml OP HS [facility] Last Admin: 05/12/17 21:49 Dose: 2.5 ml Ondansetron HCl (Zofran Injection) 4 mg IVPB Q6H PRN PRN Reason: NAUSEA AND/OR VOMITING Pantoprazole Sodium (Protonix -) 20 mg PO DAILY [facility] Last Admin: 05/13/17 09:39 Dose: 20 mg Sertraline HCl (Zoloft -) 50 mg PO DAILY [facility] Last Admin: 05/13/17 09:40 Dose: 50 mg Sitagliptin Phosphate (Januvia -) 50 mg PO DAILY@0700 [facility] Last Admin: 05/13/17 06:09 Dose: 50 mg Tapentadol (Nucynta -) 50 mg PO Q4H PRN PRN Reason: PAIN Timolol Maleate (Timoptic 0.5%) 1 drop OU BID [facility] Last Admin: 05/13/17 09:52 Dose: 1 drop Valsartan (Diovan -) 160 mg PO DAILY [facility] Last Admin: 05/13/17 09:39 Dose: 160 mg Vancomycin HCl (Vancomycin (Pre-Docked)) 1,000 mg IVPB Q12H [facility] Last Admin: 05/13/17 19:16 Dose: 1,000 mg Pt seen and examined at bedside. On review Mr Pollard is awake, alert, with stable bp. His HR is elevated 15-20 points above his admission HR 110---> 130. He denies chest pain, shortness of breath, fever, chills, rigors. Nurse relates recent dressing change of surgical site without exudate or erythema. He did have low grade temp today of 100 but without localizing symptoms or signs of infection. He is non toxic appearing and he relates feeling well. His Lung sounds and heart sounds are normal save tachycardia. Pt does complain of significant abd distention and is noted to have relatively large tympanic abd, without pain or rebound. He has not received simethicone. He did have BM today. His WBC is normal , h/H stable. K slightly low--repletion ordered. Hgb has dropped by 2 grm since admission but no overt signs of bleeding. He is not anticoagulated. CBC, BMP 05/13/17 17:00 05/13/17 17:00 Pt appears to have stable tachycardia. It is unclear if 25 of toprol xl is his home dose. His lack of localizing symptoms make new infection less likely. He is neither toxic or distressed. Suggest: - up titrating BB as tolerated - treat gas/abd distention and pain accordingly - while reasonable to perform CTA and CTAP, PE seems unlikley, and abd exam is largely benign/bowels are moving - ok to keep on floor - can re-evaluate if worsening tachycardia or shock -replete lytes as you are doing -repeat CBC in am, if still dropping h/h will warrant further investigation. Zack Howell ACNP
[2017-05-13] MEDS: ATORVASTATIN CA 20 MG TABLET (FP) PO SCH (21:44)
[2017-05-13] MEDS: BIMATOPROST OP SCH (21:46)
[2017-05-14 00:54] LABS: URINE APPEARANCE CLEAR; URINE BILIRUBIN NEGATIVE (NEGATIVE); URINE BLOOD 1+ (NEGATIVE); URINE COLOR LTYELLOW; URINE GLUCOSE (UA) 1+ (NEGATIVE); URINE KETONE TRACE (NEGATIVE); URINE LEUK ESTERASE NEGATIVE (NEGATIVE); URINE NITRITE NEGATIVE (NEGATIVE); URINE PROTEIN 1+ (NEGATIVE); URINE UROBILINOGEN 4.0 E.U/dl mg/dL (0.2-1.0)
[2017-05-14 01:07] LABS: URINE BACTERIA FEW /hpf (NONE SEEN); URINE RBC 1 /hpf (0-3); URINE WBC 1 /hpf (3-5)
[2017-05-14] MEDS ORDERED: ceFAZolin SODIUM 1 GM VIAL ONE ×2 (01:10→09:34)
[2017-05-14] MEDS ORDERED: DEXTROSE 5%-WATER - 50 ML IVPB ONE ×2 (01:11→09:35)
[2017-05-14] MEDS ORDERED: PIPERACILLIN/TAZOBACTAM 4.5 GM VIAL IVPB ONE ×3 (01:24→17:09)
[2017-05-14] MEDS ORDERED: DEXTROSE 5%-WATER 100 ML IVPB ONE ×3 (01:26→17:09)
[2017-05-14] MEDS: HYDROmorphone HCL CARPU-JECT 2 MG/1 ML DISP.SYRIN IVPB PRN ×4 (01:35→22:03)
[2017-05-14] MEDS: PIPERACILLIN/TAZOB 4.5 GM 4.5 GM in DEXTROSE 5%-WATER 100 ML IVPB SCH ×3 (01:37→17:18)
[2017-05-14] MEDS: CEFAZOLIN 1 GM in DEXTROSE 5%-WATER - 50 ML IVPB SCH ×2 (01:38→11:18)
[2017-05-14] MEDS: metFORMIN HCL 500 MG TABLET (FP) PO SCH (06:22)
[2017-05-14] MEDS: DOCUSATE SODIUM 100 MG CAPSULE (FP) PO SCH ×3 (06:33→22:01)
[2017-05-14] MEDS: sitaGLIPtin PHOSPHATE 50 MG TABLET PO SCH (06:33)
[2017-05-14] MEDS: diazePAM 5 MG TABLET PO SCH ×3 (06:33→22:10)
[2017-05-14] MEDS: VANCOMYCIN 1 GRAM (PRE-DOCKED) 1,000 MG/250 ML BAG IVPB SCH ×2 (06:33→18:23)
[2017-05-14] MEDS: INSULIN (NOVOLOG MIX 70/30) 100 UNITS/ML MDV SQ SCH ×2 (06:34→17:04)
[2017-05-14] MEDS: INSULIN SLIDING SCALE (NOVOLOG) 1 VIAL SQ SCH ×4 (06:35→22:52)
[2017-05-14] MEDS ORDERED: PT OWN MED DRAWER 7, Y5N ONE ×4 (06:56→21:33)
[2017-05-14 07:30] LABS: BASOPHIL 0.7 % (0-2.0); EOSINOPHIL 5.1 % (0-4.5); MCH 34.8 pg (25.7-33.7); MCHC 34.5 g/dl (32.0-35.9); MEAN CELL VOLUME 100.8 fl (80-96); MEAN PLT VOLUME 8.2 fl (7.5-11.1); PLATELET COUNT 170 K/MM3 (134-434); RDW 14.3 % (11.9-15.9); WHITE BLOOD COUNT 8.9 K/mm3 (4.0-10.0)
[2017-05-14 08:20] LABS: ALBUMIN 2.7 g/dl (3.4-5.0); ALK PHOS 71 U/L (45-117); ANION GAP 8 (8-16); BILIRUBIN,TOTAL 1.1 mg/dL (0.2-1.0); CALCIUM 8.1 mg/dL (8.5-10.1); CO2 26 mmol/L (21-32); GLUCOSE,RANDOM 157 mg/dL (74-106); SGOT/AST 55 U/L (15-37); SGPT/ALT 34 U/L (12-78); TOT PROT 6.5 g/dl (6.4-8.2)
--- NOTE | 2017-05-14 08:45 | PN ---
Progress Note, Physician Chief Complaint: last evening developed fever to 101F and relative hypotension Seen by ID, cultured. Abx changed. Had CT scans chest and abdomen, result pending. Was evaluated for ICU but appeared non-toxic and was treated on floor. This AM appears comfortable. Fever down and BP improved. H/H stable. Still sinus tach - Current Medication List Current Medications: Active Medications Acetaminophen (Tylenol -) 650 mg PO Q6H PRN PRN Reason: FEVER Last Admin: 05/12/17 23:38 Dose: 650 mg Atorvastatin Calcium (Lipitor -) 20 mg PO HS OVI Last Admin: 05/13/17 21:44 Dose: 20 mg Bisacodyl (Dulcolax Suppository -) 10 mg RC DAILY PRN PRN Reason: CONSTIPATION Diazepam (Valium -) 5 mg PO TID [facility] Last Admin: 05/14/17 06:33 Dose: 5 mg Docusate Sodium (Colace -) 100 mg PO TID [facility] Last Admin: 05/14/17 06:33 Dose: 100 mg Hydrochlorothiazide (Hctz -) 12.5 mg PO DAILY [facility] Last Admin: 05/13/17 09:39 Dose: 12.5 mg Hydromorphone HCl (Dilaudid Injection -) 2 mg IVPB Q6H PRN Last Admin: 05/14/17 07:42 Dose: 2 mg Potassium Chloride/Dextrose/Sod Cl (D5-1/2ns+20 Meq Kcl -) 1,000 mls @ 42 mls/ hr IV ASDIR [facility] Last Admin: 05/13/17 16:59 Dose: Not Given Cefazolin Sodium 1 gm/ (Dextrose) 50 mls @ 100 mls/hr IVPB Q8H-IV [facility] Last Admin: 05/14/17 01:38 Dose: 100 mls/hr Piperacillin Sod/Tazobactam (Sod 4.5 gm/ Dextrose) 100 mls @ 200 mls/hr IVPB Q8H-IV [facility] PRN Reason: Protocol Last Admin: 05/14/17 01:37 Dose: 200 mls/hr Insulin Aspart (Novolog Vial Sliding Scale -) 1 vial SQ ACHS [facility] PRN Reason: Protocol Last Admin: 05/14/17 06:35 Dose: 2 units Insulin Aspart (Novolog Mix 70/30 Vial) 40 units SQ BIDAC [facility] Last Admin: 05/14/17 06:34 Dose: 40 units Loratadine (Claritin -) 10 mg PO DAILY PRN PRN Reason: NASAL CONGESTION Metformin HCl (Glucophage -) 500 mg PO DAILY@0700 [facility] Last Admin: 05/14/17 06:22 Dose: Not Given Metoprolol Succinate (Toprol Xl -) 25 mg PO DAILY [facility] Last Admin: 05/13/17 09:40 Dose: 25 mg Bimatoprost [Lumigan ] Eyedrop 2.5 Ml (Pt 's Own) 2.5 ml OP HS [facility] Last Admin: 05/13/17 21:46 Dose: 2.5 ml Ondansetron HCl (Zofran Injection) 4 mg IVPB Q6H PRN PRN Reason: NAUSEA AND/OR VOMITING Pantoprazole Sodium (Protonix -) 20 mg PO DAILY [facility] Last Admin: 05/13/17 09:39 Dose: 20 mg Sertraline HCl (Zoloft -) 50 mg PO DAILY [facility] Last Admin: 05/13/17 09:40 Dose: 50 mg Sitagliptin Phosphate (Januvia -) 50 mg PO DAILY@0700 [facility] Last Admin: 05/14/17 06:33 Dose: 50 mg Tapentadol (Nucynta -) 50 mg PO Q4H PRN PRN Reason: PAIN Timolol Maleate (Timoptic 0.5%) 1 drop OU BID [facility] Last Admin: 05/13/17 21:44 Dose: 1 drop Valsartan (Diovan -) 160 mg PO DAILY [facility] Last Admin: 05/13/17 09:39 Dose: 160 mg Vancomycin HCl (Vancomycin (Pre-Docked)) 1,000 mg IVPB Q12H [facility] Last Admin: 05/14/17 06:33 Dose: 1,000 mg - Objective Vital Signs: Vital Signs Temperature 98.5 F 05/14/17 06:46 Pulse Rate 117 H 05/14/17 06:46 Respiratory Rate 20 05/14/17 06:46 Blood Pressure 125/69 05/14/17 06:46 O2 Sat by Pulse Oximetry (%) 98 05/13/17 21:00 Constitutional: Yes: No Distress Eyes: Yes: Conjunctiva Clear Cardiovascular: Yes: Regular Rate and Rhythm (slightly tachy) Respiratory: Yes: CTA Bilaterally Gastrointestinal: Yes: Soft Edema: No Neurological: Yes: Alert, Oriented Labs: CBC, BMP 05/14/17 06:30 05/14/17 06:30 Assessment/Plan Assessment/Plan Sinus tachycardia s/p lumbar and thoracic laminectomies, and revision of prior laminectomy Chronic HTN DM Stable 4cm thoracic aortic aneurysm Mild bilateral carotid atheromatous dz Now with Fevers, episode hypotension possible SIRS/early sepsis REC: 1. Follow up cultures 2. Abx adjusted as per ID, await results of CT scan. 3. Echo today 4. Sinus tach seems slightly improved this AM after Abx. Given episode of hypotension last night, will not up titrate beta blockers as heart rate is likely physiologic response to fever, pain, possible infection.
[2017-05-14] MEDS: VALSARTAN 160 MG TABLET (UD) PO SCH (09:40)
[2017-05-14] MEDS: SERTRALINE HCL 50 MG TABLET (FP) PO SCH (09:40)
[2017-05-14] MEDS: TIMOLOL 0.5% OPHTHALMIC SOL 5 ML BOTTLE OU SCH ×2 (09:40→22:00)
[2017-05-14] MEDS: PANTOPRAZOLE 20 MG TABLET (FP) PO SCH (09:40)
[2017-05-14] MEDS: HYDROCHLOROTHIAZIDE 12.5 MG CAPSULE (FP) PO SCH (09:40)
[2017-05-14] MEDS: METOPROLOL SUCCINATE 25 MG TAB.SR.24H (FP) PO SCH (09:40)
--- NOTE | 2017-05-14 10:31 | PN ---
Progress Note, Physician History of Present Illness: Awake, alert Complains of epigastric pain No N/V + BM No c/o chest pain/ dyspnea Low grade fever Cultures no growth WBC WNL - Current Medication List Current Medications: Active Medications Acetaminophen (Tylenol -) 650 mg PO Q6H PRN PRN Reason: FEVER Last Admin: 05/12/17 23:38 Dose: 650 mg Atorvastatin Calcium (Lipitor -) 20 mg PO HS [facility] Last Admin: 05/13/17 21:44 Dose: 20 mg Bisacodyl (Dulcolax Suppository -) 10 mg RC DAILY PRN PRN Reason: CONSTIPATION Diazepam (Valium -) 5 mg PO TID [facility] Last Admin: 05/14/17 06:33 Dose: 5 mg Docusate Sodium (Colace -) 100 mg PO TID [facility] Last Admin: 05/14/17 06:33 Dose: 100 mg Hydrochlorothiazide (Hctz -) 12.5 mg PO DAILY [facility] Last Admin: 05/14/17 09:40 Dose: 12.5 mg Hydromorphone HCl (Dilaudid Injection -) 2 mg IVPB Q6H PRN Last Admin: 05/14/17 07:42 Dose: 2 mg Potassium Chloride/Dextrose/Sod Cl (D5-1/2ns+20 Meq Kcl -) 1,000 mls @ 42 mls/ hr IV ASDIR [facility] Last Admin: 05/13/17 16:59 Dose: Not Given Cefazolin Sodium 1 gm/ (Dextrose) 50 mls @ 100 mls/hr IVPB Q8H-IV [facility] Last Admin: 05/14/17 01:38 Dose: 100 mls/hr Piperacillin Sod/Tazobactam (Sod 4.5 gm/ Dextrose) 100 mls @ 200 mls/hr IVPB Q8H-IV [facility] PRN Reason: Protocol Last Admin: 05/14/17 09:40 Dose: 200 mls/hr Insulin Aspart (Novolog Vial Sliding Scale -) 1 vial SQ ACHS [facility] PRN Reason: Protocol Last Admin: 05/14/17 06:35 Dose: 2 units Insulin Aspart (Novolog Mix 70/30 Vial) 40 units SQ BIDAC [facility] Last Admin: 05/14/17 06:34 Dose: 40 units Loratadine (Claritin -) 10 mg PO DAILY PRN PRN Reason: NASAL CONGESTION Metformin HCl (Glucophage -) 500 mg PO DAILY@0700 [facility] Last Admin: 05/14/17 06:22 Dose: Not Given Metoprolol Succinate (Toprol Xl -) 25 mg PO DAILY [facility] Last Admin: 05/14/17 09:40 Dose: 25 mg Bimatoprost [Lumigan ] Eyedrop 2.5 Ml (Pt 's Own) 2.5 ml OP HS [facility] Last Admin: 05/13/17 21:46 Dose: 2.5 ml Ondansetron HCl (Zofran Injection) 4 mg IVPB Q6H PRN PRN Reason: NAUSEA AND/OR VOMITING Pantoprazole Sodium (Protonix -) 20 mg PO DAILY [facility] Last Admin: 05/14/17 09:40 Dose: 20 mg Sertraline HCl (Zoloft -) 50 mg PO DAILY [facility] Last Admin: 05/14/17 09:40 Dose: 50 mg Sitagliptin Phosphate (Januvia -) 50 mg PO DAILY@0700 [facility] Last Admin: 05/14/17 06:33 Dose: 50 mg Tapentadol (Nucynta -) 50 mg PO Q4H PRN PRN Reason: PAIN Timolol Maleate (Timoptic 0.5%) 1 drop OU BID [facility] Last Admin: 05/14/17 09:40 Dose: 1 drop Valsartan (Diovan -) 160 mg PO DAILY [facility] Last Admin: 05/14/17 09:40 Dose: 160 mg Vancomycin HCl (Vancomycin (Pre-Docked)) 1,000 mg IVPB Q12H [facility] Last Admin: 05/14/17 06:33 Dose: 1,000 mg - Objective Vital Signs: Vital Signs Temperature 98.5 F 05/14/17 06:46 Pulse Rate 123 H 05/14/17 09:49 Respiratory Rate 20 05/14/17 09:49 Blood Pressure 120/82 05/14/17 09:49 O2 Sat by Pulse Oximetry (%) 98 05/13/17 21:00 Constitutional: Yes: No Distress Eyes: Yes: Conjunctiva Clear Cardiovascular: Yes: Regular Rate and Rhythm, S1, S2 Respiratory: Yes: CTA Bilaterally Gastrointestinal: Yes: Normal Bowel Sounds, Soft, Abdomen, Obese, Tenderness, Other (abdomen distended + epigastric tenderness no rebound / rigidity) Extremities: No: Calf Tenderness Edema: No Labs: CBC, BMP 05/14/17 06:30 05/14/17 06:30 Assessment/Plan Fever/ chillls/ hypotension/ tachycardia possible sepsis POD # [address] chest no PE/ pneumonia CT abdo/pelvis no acute process await c/s Continue empiric vancomycin/ zosyn
[2017-05-14] MEDS ORDERED: INSULIN (NOVOLOG) ASPART 100 UNITS/ML 10ML VIAL ONE ×2 (11:09→17:07)
[2017-05-14] MEDS: D5-1/2NS+20 MEQ KCL - 1,000 ML IV SCH ×2 (11:26→17:03)
--- NOTE | 2017-05-14 11:28 | PN ---
Progress Note (short form) - Note Progress Note: NEUROSURGERY POD #4 Had more BM yesterday Moderate incisional pain Less gonzalez today Tmax 99.6, Afebrile today VSS except chronic sinus tach per cardiology ID input and cardiology input appreciated CV- RR; Lungs- decreased BS at bases; Abd- obese, mildly distended; +BS; Ext- no sign of DVT Moving B UE/LE R DF 4/5 (better);R PF 4/5; L DF/PF 4+-5 Dressing C/D/I- minimal drainage on top WBC 8.3; Cr 1.0 On vanco and Zosyn per ID CT chest/abd- no acute pathology, no PE; expected postsurgical changes T10-11 OOB with TLSO brace PO pain meds Observe wound/dressing change, doubt anything active Bowel regimen Add Mylicon
[2017-05-14] MEDS ORDERED: INSULIN (NOVOLOG MIX 70/30) 100 UNITS/ML MDV SQ ONE (17:08)
[2017-05-14] MEDS: HYDROmorphone *PCA* 10MG/50ML DISP.SYRIN PCA SCH (18:14)
[2017-05-14] MEDS: PATIENT'S OWN MEDICATION (NON-FORMULARY) (Sitagliptin Phos/Metformin Hcl [Janumet 50-500 M PO SCH ×2 (18:15→18:29)
[2017-05-14] MEDS: BIMATOPROST OP SCH (22:01)
[2017-05-14] MEDS: ATORVASTATIN CA 20 MG TABLET (FP) PO SCH (22:09)
[2017-05-15] MEDS ORDERED: PIPERACILLIN/TAZOBACTAM 4.5 GM VIAL IVPB ONE ×2 (01:01→08:58)
[2017-05-15] MEDS ORDERED: DEXTROSE 5%-WATER 100 ML IVPB ONE ×2 (01:01→08:59)
[2017-05-15] MEDS: PIPERACILLIN/TAZOB 4.5 GM 4.5 GM in DEXTROSE 5%-WATER 100 ML IVPB SCH ×2 (01:08→09:34)
[2017-05-15] MEDS: sitaGLIPtin PHOSPHATE 50 MG TABLET PO SCH (06:06)
[2017-05-15] MEDS: DOCUSATE SODIUM 100 MG CAPSULE (FP) PO SCH ×3 (06:06→21:37)
[2017-05-15] MEDS: metFORMIN HCL 500 MG TABLET (FP) PO SCH (06:06)
[2017-05-15] MEDS: diazePAM 5 MG TABLET PO SCH ×3 (06:06→21:37)
[2017-05-15] MEDS: VANCOMYCIN 1 GRAM (PRE-DOCKED) 1,000 MG/250 ML BAG IVPB SCH (06:06)
[2017-05-15] MEDS: INSULIN (NOVOLOG MIX 70/30) 100 UNITS/ML MDV SQ SCH (06:07)
[2017-05-15] MEDS ORDERED: INSULIN (NOVOLOG) ASPART 100 UNITS/ML 10ML VIAL ONE ×2 (06:09→18:36)
[2017-05-15] MEDS: INSULIN SLIDING SCALE (NOVOLOG) 1 VIAL SQ SCH ×4 (06:10→21:45)
--- NOTE | 2017-05-15 08:26 | PN ---
Progress Note, Physician - Current Medication List Current Medications: Active Medications Acetaminophen (Tylenol -) 650 mg PO Q6H PRN PRN Reason: FEVER Last Admin: 05/12/17 23:38 Dose: 650 mg Atorvastatin Calcium (Lipitor -) 20 mg PO HS [facility] Last Admin: 05/14/17 22:09 Dose: 20 mg Bisacodyl (Dulcolax Suppository -) 10 mg RC DAILY PRN PRN Reason: CONSTIPATION Diazepam (Valium -) 5 mg PO TID [facility] Last Admin: 05/15/17 06:06 Dose: 5 mg Docusate Sodium (Colace -) 100 mg PO TID [facility] Last Admin: 05/15/17 06:06 Dose: 100 mg Hydrochlorothiazide (Hctz -) 12.5 mg PO DAILY [facility] Last Admin: 05/14/17 09:40 Dose: 12.5 mg Hydromorphone HCl (Dilaudid Injection -) 2 mg IVPB Q6H PRN Last Admin: 05/14/17 22:03 Dose: 2 mg Potassium Chloride/Dextrose/Sod Cl (D5-1/2ns+20 Meq Kcl -) 1,000 mls @ 42 mls/ hr IV ASDIR [facility] Last Admin: 05/14/17 17:03 Dose: Not Given Piperacillin Sod/Tazobactam (Sod 4.5 gm/ Dextrose) 100 mls @ 200 mls/hr IVPB Q8H-IV [facility] PRN Reason: Protocol Last Admin: 05/15/17 01:08 Dose: 200 mls/hr Insulin Aspart (Novolog Vial Sliding Scale -) 1 vial SQ ACHS [facility] PRN Reason: Protocol Last Admin: 05/15/17 06:10 Dose: 2 units Insulin Aspart (Novolog Mix 70/30 Vial) 40 units SQ BIDAC [facility] Last Admin: 05/15/17 06:07 Dose: 40 units Loratadine (Claritin -) 10 mg PO DAILY PRN PRN Reason: NASAL CONGESTION Metformin HCl (Glucophage -) 500 mg PO DAILY@0700 [facility] Last Admin: 05/15/17 06:06 Dose: Not Given Metoprolol Succinate (Toprol Xl -) 25 mg PO DAILY [facility] Last Admin: 05/14/17 09:40 Dose: 25 mg Bimatoprost [Lumigan ] Eyedrop 2.5 Ml (Pt 's Own) 2.5 ml OP [facility] Last Admin: 05/14/17 22:01 Dose: 2.5 ml Ondansetron HCl (Zofran Injection) 4 mg IVPB Q6H PRN PRN Reason: NAUSEA AND/OR VOMITING Pantoprazole Sodium (Protonix -) 20 mg PO DAILY [facility] Last Admin: 05/14/17 09:40 Dose: 20 mg Sertraline HCl (Zoloft -) 50 mg PO DAILY [facility] Last Admin: 05/14/17 09:40 Dose: 50 mg Simethicone (Mylicon -) 40 mg PO QID PRN PRN Reason: DYSPEPSIA Sitagliptin Phosphate (Januvia -) 50 mg PO DAILY@0700 [facility] Last Admin: 05/15/17 06:06 Dose: 50 mg Tapentadol (Nucynta -) 75 mg PO Q4H PRN PRN Reason: PAIN Timolol Maleate (Timoptic 0.5%) 1 drop OU BID [facility] Last Admin: 05/14/17 22:00 Dose: 1 drop Valsartan (Diovan -) 160 mg PO DAILY [facility] Last Admin: 05/14/17 09:40 Dose: 160 mg Vancomycin HCl (Vancomycin (Pre-Docked)) 1,000 mg IVPB Q12H [facility] Last Admin: 05/15/17 06:06 Dose: 1,000 mg - Objective Vital Signs: Vital Signs Temperature 98.9 F 05/15/17 04:00 Pulse Rate 114 H 05/15/17 04:00 Respiratory Rate 16 05/15/17 04:00 Blood Pressure 108/54 05/15/17 04:00 O2 Sat by Pulse Oximetry (%) 99 05/14/17 20:00 Eyes: Yes: WNL, Conjunctiva Clear, EOM Intact HENT: Yes: WNL, Atraumatic, Normocephalic Neck: Yes: WNL, Supple, Trachea Midline Cardiovascular: Yes: WNL, Regular Rate and Rhythm Respiratory: Yes: WNL, Regular, CTA Bilaterally Gastrointestinal: Yes: WNL, Normal Bowel Sounds Genitourinary: Yes: WNL Musculoskeletal: Yes: WNL Extremities: Yes: WNL Edema: No Integumentary: Yes: WNL Neurological: Yes: WNL, Alert, Oriented ...Motor Strength: WNL Psychiatric: Yes: WNL Labs: CBC, BMP 05/14/17 06:30 05/14/17 06:30 Assessment/Plan Assessment/Plan Sinus tachycardia s/p lumbar and thoracic laminectomies, and revision of prior laminectomy Chronic HTN DM Stable 4cm thoracic aortic aneurysm Mild bilateral carotid atheromatous dz s/p Fever, episode hypotension possible SIRS/early sepsis echo unremarkable REC: 1. Follow up cultures 2. Abx adjusted as per ID, await results of CT scan. 3. Sinus tach seems slightly improved this AM after Abx.
--- NOTE | 2017-05-15 09:33 | PN ---
Progress Note (short form) - Note Progress Note: NEUROSURGERY POD #4 Had more BM yesterday Moderate incisional pain Still with epigastric pain Tmax 99.6, now 98.8 Continued ID input and cardiology input appreciated CV- RR; Lungs- decreased BS at bases; Abd- obese, mildly distended; +BS; Ext- no sign of DVT Moving B UE/LE R DF 4/5;R PF 4/5; L DF/PF 4+-5 Dressing C/D/I- C/D/I WBC 8.9; Hgb 11.1 Blood culture negative x 24 hours On vanco and Zosyn per ID CT chest/abd- no acute pathology, no PE; expected postsurgical changes T10-11 OOB with TLSO brace PO pain meds- prefer Nucynta to decrease potential GI side effect Observe wound/dressing change Bowel regimen GI input
[2017-05-15] MEDS: PANTOPRAZOLE 20 MG TABLET (FP) PO SCH (09:34)
[2017-05-15] MEDS: VALSARTAN 160 MG TABLET (UD) PO SCH (09:34)
[2017-05-15] MEDS: SERTRALINE HCL 50 MG TABLET (FP) PO SCH (09:34)
[2017-05-15] MEDS: HYDROCHLOROTHIAZIDE 12.5 MG CAPSULE (FP) PO SCH (09:34)
[2017-05-15] MEDS: METOPROLOL SUCCINATE 25 MG TAB.SR.24H (FP) PO SCH (09:35)
[2017-05-15] MEDS: TAPENTADOL HYDROCHLORIDE 50 MG TABLET PO PRN ×3 (09:36→19:57)
[2017-05-15] MEDS ORDERED: PT OWN MED DRAWER 7, Y5N ONE (09:40)
[2017-05-15] MEDS: TIMOLOL 0.5% OPHTHALMIC SOL 5 ML BOTTLE OU SCH ×2 (09:41→21:45)
[2017-05-15] MEDS: PANTOPRAZOLE 40 MG TABLET (FP) PO SCH (11:45)
[2017-05-15] MEDS: MAG HYDROX/AL HYDROX/SIMETH 30 ML UNIT-DOSE CUP PO PRN ×2 (11:45→21:39)
[2017-05-15 12:09] LABS: ALBUMIN 2.8 g/dl (3.4-5.0); BILIRUBIN,DIRECT 0.6 mg/dL (0.0-0.2); BILIRUBIN,TOTAL 1.1 mg/dL (0.2-1.0); TOT PROT 7.1 g/dl (6.4-8.2)
--- NOTE | 2017-05-15 12:56 | PN ---
Progress Note (short form) - Note Progress Note: had a bm today reports abdominal discomfort Vital Signs Period Temp Pulse Resp BP Sys/Sales Pulse Ox Last 24 Hr 98.4 F-99.6 F 108-114 16-20 107-155/54-88 99 cor-rrr lungs decreased bs at bases abd soft, +BS diffuse abdominal discomfort to palpation ext no edema dressing on back is dry CBC, BMP 05/14/17 06:30 05/14/17 06:30 imaging- chest/abd/pelvis noted Microbiology 05/14/17 00:05 Urine - Urine Clean Catch Urine Culture - Final NO GROWTH OBTAINED 05/13/17 17:00 Blood - Peripheral Venous Blood Culture - Preliminary NO GROWTH OBTAINED AFTER 24 HOURS, INCUBATION TO CONTINUE FOR 4 DAYS. 05/13/17 17:00 Blood - Peripheral Venous Blood Culture - Preliminary NO GROWTH OBTAINED AFTER 24 HOURS, INCUBATION TO CONTINUE FOR 4 DAYS. a/p d/w Dr Hagan no clear infectious process at this time will d/c antibiotics and observe GI to see for abdominal discomfort
[2017-05-15] MEDS ORDERED: METOCLOPRAMIDE HCL INJECTION 10 MG/2 ML VIAL IVPB ONE (13:27)
--- NOTE | 2017-05-15 14:06 | CONS ---
DATE OF CONSULTATION: DATE OF DICTATION: 05/13/2017 HISTORY OF PRESENT ILLNESS: The patient is a 67-year-old male who is evaluated for sepsis. tibial plateau underwent a redo T10-T11 laminectomy on May 10, 2017. His hospital course has been significant for persistent tachycardia, which was felt to be secondary to his pain. Earlier today, he developed onset of chills and was noted to have a temperature of 100.6. His blood pressure dropped to 84/56, and his heart rate increased to 134. He is presently awake. He is complaining of epigastric pain. He is not short of breath. However, he does appear diaphoretic. He denies any chest pain. He denies shortness of breath. No cough or hemoptysis. He has had some voiding issues since the surgery. He has been incontinent of urine. He denies any dysuria or hematuria. PAST MEDICAL HISTORY: Positive for spinal stenosis, diabetes mellitus, coronary artery disease, hypertension, hyperlipidemia, history of abdominal aortic aneurysm. PAST SURGICAL HISTORY: As above. ALLERGIES: To CODEINE and MORPHINE. MEDICATIONS: Lumigan, Zofran, Tylenol, Diovan, Zoloft, Valium, Toprol, Glucophage, Januvia, Protonix. SOCIAL HISTORY: He lives at home with . A former smoker. SYSTEMS REVIEW: Neurologic: No loss of consciousness, seizure activity, or focal weakness. Cardiac: Negative for chest pain or palpitations. Respiratory: Negative for cough or sputum production. Gastrointestinal: As per HPI. Genitourinary: Negative for dysuria or hematuria. LABORATORY DATA: White count 10.3, hematocrit 33.6, platelet count 123. BUN 13, creatinine 0.9. These lab values are from May 10 and . Stat labs are pending. Chest x-ray from April 28 showed no active pulmonary disease. A stat CT has been requested. PHYSICAL EXAMINATION: General: He is in moderate distress secondary to epigastric discomfort. Vital signs: Temperature 100.6, blood pressure 123/72, pulse 134 and regular, respirations 20 per minute. HEENT: Sclerae anicteric. Heart: Heart sounds tachycardic S1, S2. Lungs: Clear. Abdomen: Is obese. It is slightly distended. There is epigastric tenderness to palpation. No mass, rebound, or rigidity. Extremities: Negative for edema. Negative for calf tenderness. Laminectomy wound no erythema or drainage. IMPRESSION: A 67-year-old diabetic male postoperative day No. 3 laminectomy, now with fevers, chills, hypotension, tachycardia, complaining of epigastric pain. 1. Possible sepsis. 2. Epigastric pain discomfort, possible gastrointestinal focus of infection. 3. Possible pulmonary embolism. 4. Possible acute coronary syndrome. Stat blood cultures have been obtained. Will obtain CT angiogram of the chest. CT scan of the abdomen and pelvis. Empiric antibiotic coverage with Zosyn and vancomycin. ICU evaluation. Case was discussed with Dr. Hagan and Dr. Orozco. Will follow. Thank you for the kind referral. DANDRE GRACE M.D. [id number]
[2017-05-15] MEDS: ONDANSETRON 4 MG/2 ML VIAL IVPB PRN ×2 (14:28→14:53)
[2017-05-15] MEDS: SIMETHICONE 80 MG TAB.CHEW (FP) PO PRN ×2 (14:28→21:39)
--- NOTE | 2017-05-15 14:46 | CON.GI ---
Consult Consult Specialty:: GASTROENTEROLOGY (FOR CARLOTA) - History of Present Illness Chief Complaint: EPIGASTRIC PAIN, DIFFUSE ABDOMINAL PAIN History of Present Illness: 67 YEAR OLD AFRO-HAITIAN MALE WITH LONGSTANDING DIABETES ADMITTED FOR REPAIR OF A NONHEALING L4-S1 FUSION AND T11 LAMINECTOMY. SINCE THE SURGERY HE HAS BEEN COMPLAINING OF DIFFUSE ABDOMINAL PAIN (CONCENTRATED IN THE EPIGASTRIC AREA ) AND NAUSEA. CT SCAN OF THE ABDOMEN WAS NEGATIVE. CT SCAN FOR PE IS NEGATIVE. HE IS NOT HAVING MELENA OR RECTAL BLEEDING. HE DENIES VOMITING. THE NAUSEA AND PAIN IS WORSE WITH EATING. HE HAS HAD HIS PPi INCREASED FRO 20 MG OF PROTONIX TO 40 MG WITHOUT RELIEF. HE WONT EAT HIS LUNCH ENTREE BUT DID MANAGE TO EAT A LARGE PIECE OF [place]! - History Source History Provided By: Patient Limitations to Obtaining History: No Limitations - Past Medical History Cardio/Vascular: Yes: Aneurysm, HTN, Hyperlipdemia Gastrointestinal: Yes: GERD Renal/: No: Renal Failure, UTI Psych: Yes: Depression Musculoskeletal: Yes: Other (right foot drop) Endocrine: Yes: Diabetes Mellitus - Past Surgical History Past Surgical History: Yes: Laminectomy - Alcohol/Substance Use Hx Alcohol Use: No - Smoking History Smoking history: Former smoker Have you smoked in the past 12 months: No If you are a former smoker, when did you quit?: 2004 - Social History Usual Living Arrangement: With Spouse ADL: Independent History of Recent Travel: No Home Medications - Allergies Allergies/Adverse Reactions: Allergies Allergy/AdvReac Type Severity Reaction Status Date / Time codeine Allergy Intermediate Itching Verified 05/10/17 06:47 morphine Allergy Unknown Verified 05/06/17 08:10 - Home Medications Home Medications: Ambulatory Orders Bimatoprost [Lumigan] 2.5 ml OP HS 12/13/15 Cyclobenzaprine HCl [Flexeril -] 10 mg PO TID PRN 12/13/15 Metoprolol Succinate [Toprol XL -] 1 tab PO DAILY 12/13/15 Olmesartan/Hydrochlorothiazide [Benicar Hct 20-12.5 mg Tablet] 1 tab PO DAILY Atorvastatin Ca [Lipitor] 20 mg PO HS tablet 12/26/15 Hydrochlorothiazide [Hctz -] 12.5 mg PO DAILY cap 12/26/15 Insulin Sliding Scale [Novolog Vial Sliding Scale -] 1 vial SQ ACHS units 12/26 Loratadine [Claritin -] 10 mg PO DAILY PRN #30 tablet 12/26/15 Pantoprazole Sodium [Protonix -] 20 mg PO DAILY tablet.ec 12/26/15 Sitagliptin Phosphate [Januvia -] 50 mg PO DAILY@0700 tablet 12/26/15 Tapentadol Hydrochloride [Nucynta -] 50 mg PO Q6H PRN #0 tablet 12/26/15 Timolol 0.5% [Timoptic 0.5%] 1 drop OU BID drops 12/26/15 Valsartan [Diovan] 160 mg PO DAILY tablet 12/26/15 Aspirin [ASA -] 81 mg PO DAILY 05/06/17 Insulin (Novolog 70/30) [Novolog Mix 70/30 Flexpen -] 0 units SQ TID 05/06/17 Sertraline HCl 50 mg PO DAILY 05/06/17 Sitagliptin Phos/Metformin HCl [Janumet 50-500 mg Tablet] 1 each PO BID Family Disease History - Family Disease History Family History: Denies Review of Systems - Review of Systems Constitutional: reports: No Symptoms Eyes: reports: No Symptoms HENT: reports: No Symptoms Neck: reports: No Symptoms Cardiovascular: reports: No Symptoms Respiratory: reports: No Symptoms Gastrointestinal: reports: Abdominal Pain, Indigestion, Nausea Genitourinary: reports: No Symptoms Musculoskeletal: reports: No Symptoms, Back Pain, Muscle Cramps Physical Exam-GI Vital Signs: Vital Signs Temperature 98.8 F 05/15/17 08:00 Pulse Rate 112 H 05/15/17 08:00 Respiratory Rate 18 05/15/17 08:00 Blood Pressure 155/86 05/15/17 08:00 O2 Sat by Pulse Oximetry (%) 99 05/14/17 20:00 Constitutional: Yes: Obese Eyes: Yes: Conjunctiva Clear HENT: Yes: Normocephalic Cardiovascular: Yes: Regular Rate and Rhythm Respiratory: Yes: Regular Gastrointestinal Inspection: Yes: Distention ...Auscultate: Yes: Normoactive Bowel Sounds ...Palpate: Yes: Soft, Tenderness (MILD DIFFUSE PAIN, NO GUARDING OR REBOUND), Tenderness, Epigastium Extremities: Yes: WNL Labs: CBC, BMP 05/14/17 06:30 05/14/17 06:30 Laboratory Tests 05/14/17 05/14/17 05/14/17 00:05 06:30 06:30 WBC 8.9 RBC 3.18 L Hgb 11.1 L Hct 32.1 L MCV 100.8 H MCH 34.8 H MCHC 34.5 RDW 14.3 Plt Count 170 MPV 8.2 Neutrophils % 52.0 D Lymphocytes % 32.8 D Monocytes % 9.4 Eosinophils % 5.1 H Basophils % 0.7 Sodium 135 L Potassium 4.1 D Chloride 101 Carbon Dioxide 26 Anion Gap 8 BUN 14 Creatinine 1.0 Creat Clearance w eGFR > 60 Random Glucose 157 H Calcium 8.1 L Total Bilirubin 1.1 H Direct Bilirubin AST 55 H ALT 34 Alkaline Phosphatase 71 Total Protein 6.5 Albumin 2.7 L Urine Protein 1+ H Urine Glucose (UA) 1+ H Urine Ketones Trace H Urine Blood 1+ H Urine Nitrite Negative Urine Bilirubin Negative 05/15/17 11:25 WBC RBC Hgb Hct MCV MCH MCHC RDW Plt Count MPV Neutrophils % Lymphocytes % Monocytes % Eosinophils % Basophils % Sodium Potassium Chloride Carbon Dioxide Anion Gap BUN Creatinine Creat Clearance w eGFR Random Glucose Calcium Total Bilirubin 1.1 H Direct Bilirubin 0.6 H AST 65 H ALT 44 D Alkaline Phosphatase 74 Total Protein 7.1 Albumin 2.8 L Urine Protein Urine Glucose (UA) Urine Ketones Urine Blood Urine Nitrite Urine Bilirubin Imaging - Results Cat Scan: Image Reviewed Problem List - Problems (1) Abdominal pain Assessment/Plan: CT SCAN IS NEGATIVE, HE HAS NO BLEEDING HE DENIES REFLUX, I BELIEVE THAT THIS IS RELATED TO A GASTROPARESIS ESPECIALLY POST OPERATIVELY. WOULD CONTINUE PPi, CHANGE TO CLEAR LIQUIDS FOR A COUPLE OF DAYS , ADD REGLAN D/C ZOFRAN AND OBSERVE. Code(s): R10.9 - UNSPECIFIED ABDOMINAL PAIN (2) GERD (gastroesophageal reflux disease) Code(s): K21.9 - GASTRO-ESOPHAGEAL REFLUX DISEASE WITHOUT ESOPHAGITIS (3) HLD (hyperlipidemia) Code(s): E78.5 - HYPERLIPIDEMIA, UNSPECIFIED (4) HTN (hypertension) Code(s): I10 - ESSENTIAL (PRIMARY) HYPERTENSION (5) Thoracic aortic aneurysm Code(s): I71.2 - THORACIC AORTIC ANEURYSM, WITHOUT RUPTURE (6) Diabetes Code(s): E11.9 - TYPE 2 DIABETES MELLITUS WITHOUT COMPLICATIONS (7) Thoracic spinal stenosis Code(s): M48.04 - SPINAL STENOSIS, THORACIC REGION (8) History of lumbar fusion Code(s): Z98.1 - ARTHRODESIS STATUS (9) S/P lumbar fusion Code(s): Z98.1 - ARTHRODESIS STATUS
[2017-05-15] MEDS: D5-1/2NS+20 MEQ KCL - 1,000 ML IV SCH (17:16)
[2017-05-15] MEDS: METOCLOPRAMIDE HCL 10 MG TABLET (FP) PO SCH (17:50)
[2017-05-15] MEDS: ATORVASTATIN CA 20 MG TABLET (FP) PO SCH (21:37)
[2017-05-15] MEDS: BIMATOPROST OP SCH (21:45)
[2017-05-16] MEDS: DOCUSATE SODIUM 100 MG CAPSULE (FP) PO SCH ×3 (06:15→22:14)
[2017-05-16] MEDS: sitaGLIPtin PHOSPHATE 50 MG TABLET PO SCH (06:15)
[2017-05-16] MEDS: metFORMIN HCL 500 MG TABLET (FP) PO SCH (06:15)
[2017-05-16] MEDS: diazePAM 5 MG TABLET PO SCH ×3 (06:15→22:15)
[2017-05-16] MEDS: INSULIN SLIDING SCALE (NOVOLOG) 1 VIAL SQ SCH ×4 (06:17→22:17)
--- NOTE | 2017-05-16 09:53 | PN ---
Progress Note (short form) - Note Progress Note: NEUROSURGERY POD #6 Had 1 BM yesterday Some incisional pain Mild epigastric pain, but better Appreciate GI input Tmax 100.4, now 99 Continued ID input and cardiology input appreciated CV- RR; Lungs- decreased BS at bases; Abd- obese, mildly distended; +BS; Ext- no sign of DVT Moving B UE/LE R DF 4/5;R PF 4/5; L DF/PF 4+-5 Dressing with mild drainage from top incision; cleaned with betadine and applied new dressings Blood culture negative x 48 hours Off abxper ID OOB with TLSO brace PO pain meds- prefer Nucynta to decrease potential GI side effect Observe temp/wound/dressing change Bowel regimen
[2017-05-16] MEDS: HYDROCHLOROTHIAZIDE 12.5 MG CAPSULE (FP) PO SCH (09:55)
[2017-05-16] MEDS: PANTOPRAZOLE 40 MG TABLET (FP) PO SCH (09:55)
[2017-05-16] MEDS: VALSARTAN 160 MG TABLET (UD) PO SCH (09:55)
[2017-05-16] MEDS: SERTRALINE HCL 50 MG TABLET (FP) PO SCH (09:55)
[2017-05-16] MEDS: METOPROLOL SUCCINATE 25 MG TAB.SR.24H (FP) PO SCH (09:56)
[2017-05-16] MEDS: TAPENTADOL HYDROCHLORIDE 50 MG TABLET PO PRN ×2 (09:57→20:27)
[2017-05-16] MEDS: TIMOLOL 0.5% OPHTHALMIC SOL 5 ML BOTTLE OU SCH ×2 (09:59→22:15)
--- NOTE | 2017-05-16 10:55 | PN ---
GI Progress Note Subjective: GASTROENTEROLOGY (FOR [place]) STARTED ON THERAPY FOR GASTROPARESIS AND GERD HE FEELS MUCH BETTER TODAY, LESS TO NO ABDOMINAL PAIN, NO NAUSEA, NO BELCHING , ABLE TO EAT. - Objective Vital Signs: Vital Signs Temperature 99.0 F 05/16/17 06:00 Pulse Rate 103 H 05/16/17 06:00 Respiratory Rate 18 05/16/17 06:00 Blood Pressure 100/66 05/16/17 06:00 O2 Sat by Pulse Oximetry (%) 99 05/15/17 21:00 Constitutional: Calm HENT: Yes: Normocephalic Cardiovascular: Yes: Regular Rate and Rhythm Respiratory: Yes: Regular Gastrointestinal Inspection: Yes: WNL ...Auscultate: Yes: Normoactive Bowel Sounds ...Palpate: Yes: Soft Extremities: Yes: WNL Labs: CBC, BMP 05/14/17 06:30 05/14/17 06:30 Problem List - Problems (1) Abdominal pain Assessment/Plan: TREATMENT HAS BEEN HELPFUL WOULD CONTINUE SAME MULTIPLE SMALL MEALS HAVE NUTRITION SEE PATIENT TO EDUCATE ON GASTROPARESIS DIET GASTRIC EMPTYING SCAN OUTPATIENT IF NEEDED OFF REGLAN GABRIEL MILLIGAN MD Code(s): R10.9 - UNSPECIFIED ABDOMINAL PAIN (2) GERD (gastroesophageal reflux disease) Code(s): K21.9 - GASTRO-ESOPHAGEAL REFLUX DISEASE WITHOUT ESOPHAGITIS (3) HLD (hyperlipidemia) Code(s): E78.5 - HYPERLIPIDEMIA, UNSPECIFIED (4) HTN (hypertension) Code(s): I10 - ESSENTIAL (PRIMARY) HYPERTENSION (5) Thoracic aortic aneurysm Code(s): I71.2 - THORACIC AORTIC ANEURYSM, WITHOUT RUPTURE (6) Diabetes Code(s): E11.9 - TYPE 2 DIABETES MELLITUS WITHOUT COMPLICATIONS (7) Thoracic spinal stenosis Code(s): M48.04 - SPINAL STENOSIS, THORACIC REGION (8) History of lumbar fusion Code(s): Z98.1 - ARTHRODESIS STATUS (9) S/P lumbar fusion Code(s): Z98.1 - ARTHRODESIS STATUS
--- NOTE | 2017-05-16 10:57 | PN ---
Progress Note (short form) - Note Progress Note: abdominal discomfort much improved Vital Signs Period Temp Pulse Resp BP Sys/Sales Pulse Ox Last 24 Hr 98.9 F-100.4 F 103-117 18-18 100-142/66-88 99 cor-rrr lungs decreased bs at bases wound dressing intact- examined by NS abd soft,nt ext no edema CBC, BMP 05/14/17 06:30 05/14/17 06:30 maging- chest/abd/pelvis noted Microbiology 05/14/17 00:05 Urine - Urine Clean Catch Urine Culture - Final NO GROWTH OBTAINED 05/13/17 17:00 Blood - Peripheral Venous Blood Culture - Preliminary NO GROWTH OBTAINED AFTER 24 HOURS, INCUBATION TO CONTINUE FOR 4 DAYS. 05/13/17 17:00 Blood - Peripheral Venous Blood Culture - Preliminary NO GROWTH OBTAINED AFTER 24 HOURS, INCUBATION TO CONTINUE FOR 4 DAYS. a/p low grade temperature- ?atelectasis encourage OOB and incentive spirometry observe off antibiotics s/p laminectomy 05/10
[2017-05-16] MEDS ORDERED: INSULIN (NOVOLOG) ASPART 100 UNITS/ML 10ML VIAL ONE ×2 (11:46→18:19)
[2017-05-16] MEDS: METOCLOPRAMIDE HCL 10 MG TABLET (FP) PO SCH ×2 (11:47→17:57)
--- NOTE | 2017-05-16 12:19 | PN ---
Progress Note, Physician - Current Medication List Current Medications: Active Medications Acetaminophen (Tylenol -) 650 mg PO Q6H PRN PRN Reason: FEVER Last Admin: 05/12/17 23:38 Dose: 650 mg Al Hydroxide/Mg Hydroxide (Mylanta Oral Suspension -) 30 ml PO Q8H PRN PRN Reason: INDIGESTION Last Admin: 05/15/17 21:39 Dose: 30 ml Atorvastatin Calcium (Lipitor -) 20 mg PO HS [facility] Last Admin: 05/15/17 21:37 Dose: 20 mg Bisacodyl (Dulcolax Suppository -) 10 mg RC DAILY PRN PRN Reason: CONSTIPATION Diazepam (Valium -) 5 mg PO TID [facility] Last Admin: 05/16/17 06:15 Dose: 5 mg Docusate Sodium (Colace -) 100 mg PO TID [facility] Last Admin: 05/16/17 06:15 Dose: 100 mg Hydrochlorothiazide (Hctz -) 12.5 mg PO DAILY [facility] Last Admin: 05/16/17 09:55 Dose: 12.5 mg Hydromorphone HCl (Dilaudid Injection -) 2 mg IVPB Q6H PRN Last Admin: 05/14/17 22:03 Dose: 2 mg Potassium Chloride/Dextrose/Sod Cl (D5-1/2ns+20 Meq Kcl -) 1,000 mls @ 42 mls/ hr IV ASDIR [facility] Last Admin: 05/15/17 17:16 Dose: Not Given Insulin Aspart (Novolog Vial Sliding Scale -) 1 vial SQ ACHS [facility] PRN Reason: Protocol Last Admin: 05/16/17 11:47 Dose: 6 units Insulin Aspart (Novolog Mix 70/30 Vial) 40 units SQ BIDAC [facility] Last Admin: 05/15/17 06:07 Dose: 40 units Loratadine (Claritin -) 10 mg PO DAILY PRN PRN Reason: NASAL CONGESTION Metformin HCl (Glucophage -) 500 mg PO DAILY@0700 [facility] Last Admin: 05/16/17 06:15 Dose: 500 mg Metoclopramide HCl (Reglan -) 10 mg PO BID@1100,1630 [facility] Last Admin: 05/16/17 11:47 Dose: 10 mg Metoprolol Succinate (Toprol Xl -) 25 mg PO DAILY [facility] Last Admin: 05/16/17 09:56 Dose: 25 mg Bimatoprost [Lumigan ] Eyedrop 2.5 Ml (Pt 's Own) 2.5 ml OP HS [facility] Last Admin: 05/15/17 21:45 Dose: 2.5 ml Ondansetron HCl (Zofran Injection) 4 mg IVPB Q6H PRN PRN Reason: NAUSEA AND/OR VOMITING Pantoprazole Sodium (Protonix -) 40 mg PO DAILY [facility] Last Admin: 05/16/17 09:55 Dose: 40 mg Sertraline HCl (Zoloft -) 50 mg PO DAILY [facility] Last Admin: 05/16/17 09:55 Dose: 50 mg Simethicone (Mylicon -) 40 mg PO QID PRN PRN Reason: DYSPEPSIA Last Admin: 05/15/17 21:39 Dose: 40 mg Sitagliptin Phosphate (Januvia -) 50 mg PO DAILY@0700 [facility] Last Admin: 05/16/17 06:15 Dose: 50 mg Tapentadol (Nucynta -) 75 mg PO Q4H PRN PRN Reason: PAIN Last Admin: 05/16/17 09:57 Dose: 75 mg Timolol Maleate (Timoptic 0.5%) 1 drop OU BID [facility] Last Admin: 05/16/17 09:59 Dose: 1 drop Valsartan (Diovan -) 160 mg PO DAILY [facility] Last Admin: 05/16/17 09:55 Dose: 160 mg - Objective Vital Signs: Vital Signs Temperature 98.4 F 05/16/17 10:00 Pulse Rate 108 H 05/16/17 10:00 Respiratory Rate 18 05/16/17 10:00 Blood Pressure 134/81 05/16/17 10:00 O2 Sat by Pulse Oximetry (%) 99 05/15/17 21:00 Eyes: Yes: WNL, Conjunctiva Clear, EOM Intact HENT: Yes: WNL, Atraumatic, Normocephalic Neck: Yes: WNL, Supple, Trachea Midline Cardiovascular: Yes: WNL, Regular Rate and Rhythm Respiratory: Yes: WNL, Regular, CTA Bilaterally Gastrointestinal: Yes: WNL, Normal Bowel Sounds Genitourinary: Yes: WNL Musculoskeletal: Yes: WNL Extremities: Yes: WNL Edema: No Integumentary: Yes: WNL Neurological: Yes: WNL, Alert, Oriented ...Motor Strength: WNL Psychiatric: Yes: WNL Labs: CBC, BMP 05/14/17 06:30 05/14/17 06:30 Assessment/Plan Assessment/Plan Sinus tachycardia s/p lumbar and thoracic laminectomies, and revision of prior laminectomy Chronic HTN DM Stable 4cm thoracic aortic aneurysm Mild bilateral carotid atheromatous dz s/p Fever, episode hypotension possible SIRS/early sepsis echo unremarkable REC: 1. Follow up cultures 2. Abx adjusted as per ID, await results of CT scan. 3. Sinus tach seems slightly improved .
[2017-05-16] MEDS: D5-1/2NS+20 MEQ KCL - 1,000 ML IV SCH (17:57)
[2017-05-16] MEDS: BIMATOPROST OP SCH (22:15)
[2017-05-16] MEDS: ATORVASTATIN CA 20 MG TABLET (FP) PO SCH (22:15)
[2017-05-17] MEDS: DOCUSATE SODIUM 100 MG CAPSULE (FP) PO SCH ×3 (06:37→21:07)
[2017-05-17] MEDS: sitaGLIPtin PHOSPHATE 50 MG TABLET PO SCH (06:37)
[2017-05-17] MEDS: diazePAM 5 MG TABLET PO SCH ×2 (06:38→13:20)
[2017-05-17] MEDS: INSULIN SLIDING SCALE (NOVOLOG) 1 VIAL SQ SCH ×4 (06:38→21:08)
[2017-05-17] MEDS: metFORMIN HCL 500 MG TABLET (FP) PO SCH (06:38)
[2017-05-17] MEDS: INSULIN (NOVOLOG MIX 70/30) 100 UNITS/ML MDV SQ SCH ×2 (06:38→16:45)
[2017-05-17] MEDS ORDERED: INSULIN (NOVOLOG) ASPART 100 UNITS/ML 10ML VIAL ONE ×3 (06:54→18:45)
[2017-05-17 08:35] LABS: BASOPHIL 0.8 % (0-2.0); EOSINOPHIL 4.4 % (0-4.5); MCH 34.8 pg (25.7-33.7); MCHC 34.6 g/dl (32.0-35.9); MEAN CELL VOLUME 100.5 fl (80-96); MEAN PLT VOLUME 8.7 fl (7.5-11.1); NEUTROPHILS 49.1 % (42.8-82.8); RDW 14.1 % (11.9-15.9); WHITE BLOOD COUNT 8.7 K/mm3 (4.0-10.0)
--- NOTE | 2017-05-17 08:46 | PN ---
Progress Note, Physician History of Present Illness: Doing well Awake, alert No c/o back pain No abdominal pain, N/V + BM No fever/ chills - Current Medication List Current Medications: Active Medications Acetaminophen (Tylenol -) 650 mg PO Q6H PRN PRN Reason: FEVER Last Admin: 05/12/17 23:38 Dose: 650 mg Al Hydroxide/Mg Hydroxide (Mylanta Oral Suspension -) 30 ml PO Q8H PRN PRN Reason: INDIGESTION Last Admin: 05/15/17 21:39 Dose: 30 ml Atorvastatin Calcium (Lipitor -) 20 mg PO HS [facility] Last Admin: 05/16/17 22:15 Dose: 20 mg Bisacodyl (Dulcolax Suppository -) 10 mg RC DAILY PRN PRN Reason: CONSTIPATION Diazepam (Valium -) 5 mg PO TID [facility] Last Admin: 05/17/17 06:38 Dose: 5 mg Docusate Sodium (Colace -) 100 mg PO TID [facility] Last Admin: 05/17/17 06:37 Dose: 100 mg Hydrochlorothiazide (Hctz -) 12.5 mg PO DAILY [facility] Last Admin: 05/16/17 09:55 Dose: 12.5 mg Hydromorphone HCl (Dilaudid Injection -) 2 mg IVPB Q6H PRN Last Admin: 05/14/17 22:03 Dose: 2 mg Potassium Chloride/Dextrose/Sod Cl (D5-1/2ns+20 Meq Kcl -) 1,000 mls @ 42 mls/ hr IV ASDIR [facility] Last Admin: 05/16/17 17:57 Dose: 42 mls/hr Insulin Aspart (Novolog Vial Sliding Scale -) 1 vial SQ ACHS [facility] PRN Reason: Protocol Last Admin: 05/17/17 06:38 Dose: 4 units Insulin Aspart (Novolog Mix 70/30 Vial) 40 units SQ BIDAC [facility] Last Admin: 05/17/17 06:38 Dose: 40 units Loratadine (Claritin -) 10 mg PO DAILY PRN PRN Reason: NASAL CONGESTION Metformin HCl (Glucophage -) 500 mg PO DAILY@0700 [facility] Last Admin: 05/17/17 06:38 Dose: 500 mg Metoclopramide HCl (Reglan -) 10 mg PO BID@1100,1630 [facility] Last Admin: 05/16/17 17:57 Dose: 10 mg Metoprolol Succinate (Toprol Xl -) 25 mg PO DAILY [facility] Last Admin: 05/16/17 09:56 Dose: 25 mg Bimatoprost [Lumigan ] Eyedrop 2.5 Ml (Pt 's Own) 2.5 ml OP HS [facility] Last Admin: 05/16/17 22:15 Dose: 2.5 ml Ondansetron HCl (Zofran Injection) 4 mg IVPB Q6H PRN PRN Reason: NAUSEA AND/OR VOMITING Pantoprazole Sodium (Protonix -) 40 mg PO DAILY [facility] Last Admin: 05/16/17 09:55 Dose: 40 mg Sertraline HCl (Zoloft -) 50 mg PO DAILY [facility] Last Admin: 05/16/17 09:55 Dose: 50 mg Simethicone (Mylicon -) 40 mg PO QID PRN PRN Reason: DYSPEPSIA Last Admin: 05/15/17 21:39 Dose: 40 mg Sitagliptin Phosphate (Januvia -) 50 mg PO DAILY@0700 [facility] Last Admin: 05/17/17 06:37 Dose: 50 mg Tapentadol (Nucynta -) 75 mg PO Q4H PRN PRN Reason: PAIN Last Admin: 05/16/17 20:27 Dose: 75 mg Timolol Maleate (Timoptic 0.5%) 1 drop OU BID [facility] Last Admin: 05/16/17 22:15 Dose: 1 drop Valsartan (Diovan -) 160 mg PO DAILY [facility] Last Admin: 05/16/17 09:55 Dose: 160 mg - Objective Vital Signs: Vital Signs Temperature 98.6 F 05/17/17 07:44 Pulse Rate 100 H 05/17/17 07:44 Respiratory Rate 18 05/17/17 07:44 Blood Pressure 113/69 05/17/17 07:44 O2 Sat by Pulse Oximetry (%) 99 05/16/17 21:00 Constitutional: Yes: No Distress Eyes: Yes: Conjunctiva Clear Cardiovascular: Yes: Regular Rate and Rhythm, S1, S2 Respiratory: Yes: CTA Bilaterally Gastrointestinal: Yes: Normal Bowel Sounds, Soft. No: Tenderness Extremities: No: Calf Tenderness Integumentary: Yes: Other (Laminectomy wound no erythema/ drainage) Labs: CBC, BMP 05/14/17 06:30 Assessment/Plan Post op Laminectomy Doing well Off antibiotics, Observe Incentive spirometry
--- NOTE | 2017-05-17 08:48 | PN ---
Progress Note (short form) - Note Progress Note: NEUROSURGERY POD #7 Had 1 BM yesterday Some incisional pain Mild epigastric pain this am Eating breakfast Appreciate GI, ID, and cardiology input Tmax 99, now 98.6 CV- RR; Lungs- decreased BS at bases; Abd- obese, mildly distended; +BS; Ext- no sign of DVT Moving B UE/LE R DF 4/5;R PF 4/5; L DF/PF 4+-5 Dressing with mild drainage from top incision; cleaned with betadine and applied new dressings both top and bottom Blood culture negative x 48 hours Off abx per ID OOB with TLSO brace PO pain meds Observe temp/wound/dressing change Bowel regimen Rehab planned
[2017-05-17] MEDS: METOPROLOL SUCCINATE 25 MG TAB.SR.24H (FP) PO SCH (09:42)
[2017-05-17] MEDS: VALSARTAN 160 MG TABLET (UD) PO SCH (09:42)
[2017-05-17] MEDS: SERTRALINE HCL 50 MG TABLET (FP) PO SCH (09:42)
[2017-05-17] MEDS: HYDROCHLOROTHIAZIDE 12.5 MG CAPSULE (FP) PO SCH (09:42)
[2017-05-17] MEDS: PANTOPRAZOLE 40 MG TABLET (FP) PO SCH (09:42)
[2017-05-17] MEDS ORDERED: PT OWN MED DRAWER 7, Y5N ONE (10:48)
[2017-05-17] MEDS: TIMOLOL 0.5% OPHTHALMIC SOL 5 ML BOTTLE OU SCH ×2 (10:51→21:08)
--- NOTE | 2017-05-17 11:02 | PN ---
Progress Note, Physician History of Present Illness: seen and examined today in nad. states he is feeling better. no further fevers. no overnight events. no new complains. - Current Medication List Current Medications: Active Medications Acetaminophen (Tylenol -) 650 mg PO Q6H PRN PRN Reason: FEVER Last Admin: 05/12/17 23:38 Dose: 650 mg Al Hydroxide/Mg Hydroxide (Mylanta Oral Suspension -) 30 ml PO Q8H PRN PRN Reason: INDIGESTION Last Admin: 05/15/17 21:39 Dose: 30 ml Atorvastatin Calcium (Lipitor -) 20 mg PO HS [facility] Last Admin: 05/16/17 22:15 Dose: 20 mg Bisacodyl (Dulcolax Suppository -) 10 mg RC DAILY PRN PRN Reason: CONSTIPATION Diazepam (Valium -) 5 mg PO TID [facility] Last Admin: 05/17/17 06:38 Dose: 5 mg Docusate Sodium (Colace -) 100 mg PO TID [facility] Last Admin: 05/17/17 06:37 Dose: 100 mg Hydrochlorothiazide (Hctz -) 12.5 mg PO DAILY [facility] Last Admin: 05/17/17 09:42 Dose: 12.5 mg Potassium Chloride/Dextrose/Sod Cl (D5-1/2ns+20 Meq Kcl -) 1,000 mls @ 42 mls/ hr IV ASDIR [facility] Last Admin: 05/16/17 17:57 Dose: 42 mls/hr Insulin Aspart (Novolog Vial Sliding Scale -) 1 vial SQ ACHS [facility] PRN Reason: Protocol Last Admin: 05/17/17 06:38 Dose: 4 units Insulin Aspart (Novolog Mix 70/30 Vial) 40 units SQ BIDAC [facility] Last Admin: 05/17/17 06:38 Dose: 40 units Loratadine (Claritin -) 10 mg PO DAILY PRN PRN Reason: NASAL CONGESTION Metformin HCl (Glucophage -) 500 mg PO DAILY@0700 [facility] Last Admin: 05/17/17 06:38 Dose: 500 mg Metoclopramide HCl (Reglan -) 10 mg PO BID@1100,1630 [facility] Last Admin: 05/16/17 17:57 Dose: 10 mg Metoprolol Succinate (Toprol Xl -) 25 mg PO DAILY [facility] Last Admin: 05/17/17 09:42 Dose: 25 mg Bimatoprost [Lumigan ] Eyedrop 2.5 Ml (Pt 's Own) 2.5 ml OP HS [facility] Last Admin: 05/16/17 22:15 Dose: 2.5 ml Ondansetron HCl (Zofran Injection) 4 mg IVPB Q6H PRN PRN Reason: NAUSEA AND/OR VOMITING Pantoprazole Sodium (Protonix -) 40 mg PO DAILY [facility] Last Admin: 05/17/17 09:42 Dose: 40 mg Sertraline HCl (Zoloft -) 50 mg PO DAILY [facility] Last Admin: 05/17/17 09:42 Dose: 50 mg Sitagliptin Phosphate (Januvia -) 50 mg PO DAILY@0700 [facility] Last Admin: 05/17/17 06:37 Dose: 50 mg Tapentadol (Nucynta -) 75 mg PO Q4H PRN PRN Reason: PAIN Last Admin: 05/16/17 20:27 Dose: 75 mg Timolol Maleate (Timoptic 0.5%) 1 drop OU BID [facility] Last Admin: 05/17/17 10:51 Dose: 1 drop Valsartan (Diovan -) 160 mg PO DAILY [facility] Last Admin: 05/17/17 09:42 Dose: 160 mg - Objective Vital Signs: Vital Signs Temperature 98.6 F 05/17/17 07:44 Pulse Rate 100 H 05/17/17 07:44 Respiratory Rate 18 05/17/17 07:44 Blood Pressure 113/69 05/17/17 07:44 O2 Sat by Pulse Oximetry (%) 99 05/16/17 21:00 Constitutional: Yes: No Distress, Calm Eyes: Yes: Conjunctiva Clear, EOM Intact, PERRL HENT: Yes: Atraumatic, Normocephalic Neck: Yes: Supple, Trachea Midline Cardiovascular: Yes: Tachycardia, S1, S2. No: Regular Rate and Rhythm, Bradycardia, Pulse Irregular, Bruit, JVD, Gallop, Murmur, Rub, S3, S4, Varicosities Respiratory: Yes: Regular, Diminished. No: Rales, Rhonchi, Wheezes Gastrointestinal: Yes: Normal Bowel Sounds, Tenderness. No: Distention Edema: No Peripheral Pulses WNL: Yes Peripheral Pulses: Left Doralis Pedis: 2+, Right Dorsalis Pedis: 2+ Neurological: Yes: Alert, Oriented Psychiatric: Yes: Alert, Oriented Labs: CBC, BMP 05/17/17 06:04 05/14/17 06:30 - ....Imaging Chest X-ray: Report Reviewed, Image Reviewed EKG: Report Reviewed, Image Reviewed Other: Report Reviewed, Image Reviewed Assessment/Plan Sinus tachycardia s/p lumbar and thoracic laminectomies, and revision of prior laminectomy Chronic HTN DM Stable 4cm thoracic aortic aneurysm Mild bilateral carotid atheromatous dz s/p Fever, episode hypotension possible SIRS/early sepsis echo unremarkable REC: Cont Toprol, Diovan, HCTZ at current doses ABx on hold and no further fevers, cultures show NGTD Echo showed no pericardial effusion, stable thoracic aortic aneursym, normal LV systolic function Sinus tach gradually improving as pt recovers
[2017-05-17 11:24] LABS: PLATELET ESTIMATE ADEQUATE (NORMAL)
[2017-05-17] MEDS: MAG HYDROX/AL HYDROX/SIMETH 30 ML UNIT-DOSE CUP PO PRN (12:06)
[2017-05-17] MEDS: METOCLOPRAMIDE HCL 10 MG TABLET (FP) PO SCH ×2 (12:06→16:46)
[2017-05-17] MEDS: TAPENTADOL HYDROCHLORIDE 50 MG TABLET PO PRN ×2 (13:20→20:40)
[2017-05-17] MEDS: ACETAMINOPHEN 325 MG TABLET (FP) PO PRN (16:36)
[2017-05-17] MEDS: D5-1/2NS+20 MEQ KCL - 1,000 ML IV SCH (17:48)
[2017-05-17] MEDS ORDERED: INSULIN (NOVOLOG MIX 70/30) 100 UNITS/ML MDV SQ ONE (18:45)
[2017-05-17] MEDS: ATORVASTATIN CA 20 MG TABLET (FP) PO SCH (21:07)
[2017-05-17] MEDS: BIMATOPROST OP SCH (21:08)
[2017-05-18] MEDS ORDERED: INSULIN (NOVOLOG) ASPART 100 UNITS/ML 10ML VIAL ONE ×2 (05:27→11:39)
[2017-05-18] MEDS: DOCUSATE SODIUM 100 MG CAPSULE (FP) PO SCH (06:06)
[2017-05-18] MEDS: metFORMIN HCL 500 MG TABLET (FP) PO SCH (06:33)
[2017-05-18] MEDS: sitaGLIPtin PHOSPHATE 50 MG TABLET PO SCH (06:34)
[2017-05-18] MEDS: INSULIN SLIDING SCALE (NOVOLOG) 1 VIAL SQ SCH ×2 (06:34→11:40)
[2017-05-18] MEDS: INSULIN (NOVOLOG MIX 70/30) 100 UNITS/ML MDV SQ SCH (06:36)
--- NOTE | 2017-05-18 08:05 | PN ---
Progress Note (short form) - Note Progress Note: NEUROSURGERY POD #8 Walking with TLSO and assistance to bathroom now Some incisional pain Less epigastric pain this am Tmax 98.6, VSS WI now < 100 CV- RR; Lungs- decreased BS at bases; Abd- obese, mildly distended; +BS; Ext- no sign of DVT Moving B UE/LE R DF 4/5;R PF 4/5; L DF/PF 4+-5 WBC 8.7 Dressing with no drainage; eboth top and bottom Blood culture negative x 96 hours Off abx per ID OOB with TLSO brace PO pain meds Wound care/dressing change Bowel regimen Rehab planned
[2017-05-18 08:35] VITALS: BP 143/59; PULSE 122; TEMP 97.6
--- NOTE | 2017-05-18 09:59 | PN ---
Progress Note, Physician Chief Complaint: no distress - Current Medication List Current Medications: Active Medications Acetaminophen (Tylenol -) 650 mg PO Q6H PRN PRN Reason: FEVER Last Admin: 05/17/17 16:36 Dose: 650 mg Al Hydroxide/Mg Hydroxide (Mylanta Oral Suspension -) 30 ml PO Q8H PRN PRN Reason: INDIGESTION Last Admin: 05/17/17 12:06 Dose: 30 ml Atorvastatin Calcium (Lipitor -) 20 mg PO HS [facility] Last Admin: 05/17/17 21:07 Dose: 20 mg Bisacodyl (Dulcolax Suppository -) 10 mg RC DAILY PRN PRN Reason: CONSTIPATION Docusate Sodium (Colace -) 100 mg PO TID [facility] Last Admin: 05/18/17 06:06 Dose: 100 mg Hydrochlorothiazide (Hctz -) 12.5 mg PO DAILY [facility] Last Admin: 05/17/17 09:42 Dose: 12.5 mg Potassium Chloride/Dextrose/Sod Cl (D5-1/2ns+20 Meq Kcl -) 1,000 mls @ 42 mls/ hr IV ASDIR [facility] Last Admin: 05/17/17 17:48 Dose: Not Given Insulin Aspart (Novolog Vial Sliding Scale -) 1 vial SQ ACHS [facility] PRN Reason: Protocol Last Admin: 05/18/17 06:34 Dose: 2 units Insulin Aspart (Novolog Mix 70/30 Vial) 40 units SQ BIDAC [facility] Last Admin: 05/18/17 06:36 Dose: 40 units Loratadine (Claritin -) 10 mg PO DAILY PRN PRN Reason: NASAL CONGESTION Metformin HCl (Glucophage -) 500 mg PO DAILY@0700 [facility] Last Admin: 05/18/17 06:33 Dose: 500 mg Metoclopramide HCl (Reglan -) 10 mg PO BID@1100,1630 [facility] Last Admin: 05/17/17 16:46 Dose: 10 mg Metoprolol Succinate (Toprol Xl -) 25 mg PO DAILY [facility] Last Admin: 05/17/17 09:42 Dose: 25 mg Bimatoprost [Lumigan ] Eyedrop 2.5 Ml (Pt 's Own) 2.5 ml OP [facility] Last Admin: 05/17/17 21:08 Dose: 2.5 ml Ondansetron HCl (Zofran Injection) 4 mg IVPB Q6H PRN PRN Reason: NAUSEA AND/OR VOMITING Pantoprazole Sodium (Protonix -) 40 mg PO DAILY [facility] Last Admin: 05/17/17 09:42 Dose: 40 mg Sertraline HCl (Zoloft -) 50 mg PO DAILY [facility] Last Admin: 05/17/17 09:42 Dose: 50 mg Sitagliptin Phosphate (Januvia -) 50 mg PO DAILY@0700 [facility] Last Admin: 05/18/17 06:34 Dose: 50 mg Timolol Maleate (Timoptic 0.5%) 1 drop OU BID [facility] Last Admin: 05/17/17 21:08 Dose: 1 drop Valsartan (Diovan -) 160 mg PO DAILY [facility] Last Admin: 05/17/17 09:42 Dose: 160 mg - Objective Vital Signs: Vital Signs Temperature 97.6 F 05/18/17 08:35 Pulse Rate 122 H 05/18/17 08:35 Respiratory Rate 18 05/18/17 08:35 Blood Pressure 143/59 05/18/17 08:35 O2 Sat by Pulse Oximetry (%) 98 05/17/17 21:00 Constitutional: Yes: No Distress Cardiovascular: Yes: Regular Rate and Rhythm Respiratory: Yes: CTA Bilaterally Gastrointestinal: Yes: Soft Neurological: Yes: Alert Labs: CBC, BMP 05/17/17 06:04 05/14/17 06:30 Microbiology Laboratory Tests 05/14/17 05/14/17 05/17/17 06:30 06:30 06:04 WBC 8.9 8.7 Hgb 11.1 L Hct 33.1 L Plt Count 170 No Result Required. Sodium 135 L Potassium 4.1 D BUN 14 Creatinine 1.0 Calcium 8.1 L Total Bilirubin 1.1 H Assessment/Plan Assessment/Plan Sinus tachycardia s/p lumbar and thoracic laminectomies, and revision of prior laminectomy Chronic HTN DM Stable 4cm thoracic aortic aneurysm Mild bilateral carotid atheromatous dz s/p Fever, episode hypotension possible SIRS/early sepsis REC: Cont Toprol, Diovan, HCTZ at current doses ABx on hold and no further fevers, cultures show NGTD Echo showed no pericardial effusion, stable thoracic aortic aneursym, normal LV systolic function Sinus tach gradually improving as pt recovers
[2017-05-18] MEDS ORDERED: PT OWN MED DRAWER 7, Y5N ONE (10:06)
[2017-05-18] MEDS: SERTRALINE HCL 50 MG TABLET (FP) PO SCH (10:07)
[2017-05-18] MEDS: METOCLOPRAMIDE HCL 10 MG TABLET (FP) PO SCH (10:07)
[2017-05-18] MEDS: METOPROLOL SUCCINATE 25 MG TAB.SR.24H (FP) PO SCH (10:07)
[2017-05-18] MEDS: HYDROCHLOROTHIAZIDE 12.5 MG CAPSULE (FP) PO SCH (10:07)
[2017-05-18] MEDS: TIMOLOL 0.5% OPHTHALMIC SOL 5 ML BOTTLE OU SCH (10:07)
[2017-05-18] MEDS: PANTOPRAZOLE 40 MG TABLET (FP) PO SCH (10:07)
[2017-05-18] MEDS: VALSARTAN 160 MG TABLET (UD) PO SCH (10:07)
[2017-05-18] MEDS: D5-1/2NS+20 MEQ KCL - 1,000 ML IV SCH (11:29)
== END 2017-05-18 14:06 | DRG 460 ==
LOC: JSAMEDAYSX 05:25 → J8W 17:20
PROVIDERS: ADMIT Neurological Surgery; ATTEND Neurological Surgery
PROC: 0SG30K1 Fusion of Lumbosacral Joint with Nonautologous Tissue Substitute, Posterior Approach, Posterior Column, Open Approach (ICD-10-PCS; 2017-05-10)
PROC: 0SP304Z Removal of Internal Fixation Device from Lumbosacral Joint, Open Approach (ICD-10-PCS; 2017-05-10)
PROC: 0S9 Lower Joints, Drainage (ICD-10-PCS; 2017-05-10)
PROC: 4A11X4G Monitoring of Peripheral Nervous Electrical Activity, Intraoperative, External Approach (ICD-10-PCS; 2017-05-10)
PROC: 00NX0ZZ Release Thoracic Spinal Cord, Open Approach (ICD-10-PCS; principal; 2017-05-10 08:00)
DX: M48.04 Spinal stenosis, thoracic region (principal); G95.89 Other specified diseases of spinal cord; M96.0 Pseudarthrosis after fusion or arthrodesis; I50.30 Unspecified diastolic (congestive) heart failure; Y83.8 Other surgical procedures as the cause of abnormal reaction of the patient, or of later complication, without mention of misadventure at the time of the procedure; Y92.9 Unspecified place or not applicable; M21.371 Foot drop, right foot; I25.10 Atherosclerotic heart disease of native coronary artery without angina pectoris; G96.12 Meningeal adhesions (cerebral) (spinal); I11.0 Hypertensive heart disease with heart failure; Z79.4 Long term (current) use of insulin; R00.0 Tachycardia, unspecified; R50.82 Postprocedural fever; I71.2 Thoracic aortic aneurysm, without rupture; R10.13 Epigastric pain; E11.43 Type 2 diabetes mellitus with diabetic autonomic (poly)neuropathy; K31.84 Gastroparesis
CPT/HCPCS: 36415; 71275-TC; 72100-TC; 74177-TC; 76000-TC; 80048; 80053; 80076; 81003; 81015; 85025; 85027; 86850; 86900; 86901; 87040; 87086; 88300-TC; 93005; 93010; 93306-TC; 94010; 94760; 97116-GP; 97161-GP; G0480; Q9967

== ENCOUNTER 2018-07-23 13:31 | Emergency (ER) | payer OTHER, BC ==
[2018-07-23 13:52] VITALS: BP 114/73; PULSE 100; TEMP 98.2; BMI 31.2
[2018-07-23] MEDS ORDERED: KETOROLAC TROMETHAMINE 60 MG/2 ML VIAL IM ONE (14:19)
[2018-07-23] MEDS ORDERED: KETOROLAC TROMETHAMINE 30 MG/1 ML VIAL ONE (14:21)
--- NOTE | 2018-07-23 14:25 | PDOC ---
History of Present Illness - General Chief Complaint: Chronic pain Stated Complaint: HIP/BACK PAIN Time Seen by Provider: 07/23/18 14:15 History Source: Patient, Family Exam Limitations: No Limitations - History of Present Illness Modifying Factors: worse with: immobilization, medication Associated Symptoms: denies: cough, diaphoresis, fever/chills, loss of appetite , malaise Past History - Travel Traveled outside of the country in the last 30 days: No Close contact w/someone who was outside of country & ill: No - Past Medical History Allergies/Adverse Reactions: Allergies Allergy/AdvReac Type Severity Reaction Status Date / Time codeine Allergy Intermediate Itching Verified 07/23/18 13:52 morphine Allergy Unknown Verified 07/23/18 13:52 Home Medications: Ambulatory Orders Bimatoprost [Lumigan] 2.5 ml OP HS 12/13/15 Cyclobenzaprine HCl [Flexeril -] 10 mg PO TID PRN 12/13/15 Metoprolol Succinate [Toprol XL -] 1 tab PO DAILY 12/13/15 Olmesartan/Hydrochlorothiazide [Benicar Hct 20-12.5 mg Tablet] 1 tab PO DAILY Atorvastatin Ca [Lipitor] 20 mg PO HS tablet 12/26/15 Hydrochlorothiazide [Hctz -] 12.5 mg PO DAILY cap 12/26/15 Insulin Sliding Scale [Novolog Vial Sliding Scale -] 1 vial SQ ACHS units 12/26 Loratadine [Claritin -] 10 mg PO DAILY PRN #30 tablet 12/26/15 Pantoprazole Sodium [Protonix -] 20 mg PO DAILY tablet.ec 12/26/15 Sitagliptin Phosphate [Januvia -] 50 mg PO DAILY@0700 tablet 12/26/15 Tapentadol Hydrochloride [Nucynta -] 50 mg PO Q6H PRN #0 tablet 12/26/15 Timolol 0.5% [Timoptic 0.5%] 1 drop OU BID drops 12/26/15 Valsartan [Diovan] 160 mg PO DAILY tablet 12/26/15 Aspirin [ASA -] 81 mg PO DAILY 05/06/17 Insulin (Novolog 70/30) [Novolog Mix 70/30 Flexpen -] 0 units SQ TID 05/06/17 Sertraline HCl 50 mg PO DAILY 07/06/17 Sitagliptin Phos/Metformin HCl [Janumet 50-500 mg Tablet] 1 each PO BID metFORMIN HCL [Glucophage -] 500 mg PO DAILY@0700 tablet 05/18/17 Anemia: No Asthma: No Cancer: No Cardiac Disorders: Yes (atrial fibrillation?) CVA: No COPD: No CHF: No Dementia: No Diabetes: Yes GI Disorders: No Disorders: No HTN: Yes Hypercholesterolemia: Yes Liver Disease: No Seizures: No Thyroid Disease: No - Surgical History Orthopedic Surgery: Yes (Back sx 2016) - Immunization History Td Vaccination: No TDAP Vaccination: No Immunization Up to Date: No - Suicide/Smoking/Psychosocial Hx Smoking History: Never smoked Have you smoked in the past 12 months: No If you are a former smoker, when did you quit?: 2004 Information on smoking cessation initiated: No Hx Alcohol Use: No Drug/Substance Use Hx: No Substance Use Type: None Hx Substance Use Treatment: No Review of Systems - Review of Systems Is the patient limited Romanian proficient: No Constitutional: No: Chills, Fever Musculoskeletal: Yes: Joint Pain. No: Back Pain, Joint Swelling, Muscle Pain, Muscle Weakness Neurological: No: Headache, Numbness, Paresthesia, Tingling, Dizziness *Physical Exam - Vital Signs Last Vital Signs Temp Pulse Resp BP Pulse Ox 98.2 F 100 H 16 114/73 98 07/23/18 13:49 07/23/18 13:49 07/23/18 13:49 07/23/18 13:49 07/23/18 13:49 - Physical Exam General Appearance: Yes: Nourished Respiratory/Chest: positive: Lungs Clear, Normal Breath Sounds Cardiovascular: positive: Regular Rhythm, Regular Rate, S1, S2 Extremity: positive: Other (R hip tenderness) Integumentary: negative: Normal Color Neurologic: positive: produce production team member II-XII NML intact, Fully Oriented, Alert ED Treatment Course - RADIOLOGY Radiology Studies Ordered: Category Date Time Status HIP-RIGHT [RAD] Stat Radiology 07/23/18 14:20 Ordered Medical Decision Making - Medical Decision Making 07/23/18 14:20 patient is a 68 years old with chronic right hip pain for several months, pending MRI scheduled for on the of this month. PCP is Feliciano Alonzo, he presents today with worsening R hip pain X 3 days. He denies any new trauma, weakness to the legs no bowel or bladder incontinence or saddle. he is ambulating with a cane which is new for him per . xray ordered toradol 07/23/18 15:00 xray with DJD changes pt feels better, ambulating better f/u with MRI *DC/Admit/Observation/Transfer Diagnosis at time of Disposition: DJD (degenerative joint disease) Qualifiers: Osteoarthritis location: hip Osteoarthritis type: unspecified Laterality: right Qualified Code(s): M16.11 - Unilateral primary osteoarthritis, right hip - Discharge Dispostion Disposition: HOME Condition at time of disposition: Stable Decision to Admit order: No - Referrals Referrals: Feliciano Alonzo MD, MD [Primary Care Provider] - - Patient Instructions Additional Instructions: I discussed the physical exam findings, ancillary test results and final diagnoses with the patient. I answered all of the patient's questions. The patient was satisfied with the care received and felt comfortable with the discharge plan and treatment plan. The patient will call their primary care physician within 24 hours to arrange follow-up and will return to the Emergency Department with any new, persistant or worsening symptoms. - Post Discharge Activity
== END 2018-07-23 15:07 | disposition home or self-care (01) ==
LOC: JERFT 13:31
PROC: 3E0233Z Introduction of Anti-inflammatory into Muscle, Percutaneous Approach (ICD-10-PCS; principal; 2018-07-23)
DX: M16.11 Unilateral primary osteoarthritis, right hip (principal); I48.91 Unspecified atrial fibrillation; I10 Essential (primary) hypertension; E11.9 Type 2 diabetes mellitus without complications; Z79.4 Long term (current) use of insulin; Z79.84 Long term (current) use of oral hypoglycemic drugs; E78.00 Pure hypercholesterolemia, unspecified; Z88.8 Allergy status to other drugs, medicaments and biological substances
CPT/HCPCS: 73502-TC-RT; 96372; 99281-25

== ENCOUNTER 2019-01-24 06:28 | Inpatient (IN) | payer OTHER, BC ==
[~2019-01-24 06:28] MED LIST changes: -BACITRACIN 15 GM TUBE TOPICAL OINTMENT TP ONE; +BUPIVACAINE HCL/PF (5 MG/ML) 30 ML VIAL IJ ONE; +BUPIVACAINE LIPOSOME/PF (EXPAREL) 266 MG/20 ML VIAL NR ONE
[2019-01-24] MEDS ORDERED: ceFAZolin SODIUM 1 GM VIAL ONE ×2 (07:24→12:16)
[2019-01-24] MEDS ORDERED: CEFAZOLIN 2 GM in DEXTROSE 5%-WATER - 100 ML IVPB ONE (07:27)
[2019-01-24] MEDS ORDERED: THROMBIN (BOVINE) 20,000 UNIT VIAL TP ONE (07:29)
[2019-01-24] MEDS ORDERED: LIDOCAINE 1%-EPI 1:100,000 30 ML MDV IJ ONE ×2 (07:29→10:25)
[2019-01-24] MEDS ORDERED: GENTAMICIN SO4 80 MG/2 ML VIAL ONE ×2 (07:29→12:12)
[2019-01-24] MEDS ORDERED: BUPIVACAINE HCL/PF 0.5% (5MG/ML) 10 ML VIAL ONE ×2 (08:07→08:16)
[2019-01-24] MEDS ORDERED: BACITRACIN 15 GM TUBE TOPICAL OINTMENT ONE (08:07)
[2019-01-24] MEDS ORDERED: ceFAZolin SODIUM 1 GM VIAL IVPB ONE (08:16)
[2019-01-24] MEDS ORDERED: BUPIVACAINE LIPOSOME/PF (EXPAREL) 266 MG/20 ML VIAL ONE ×2 (08:16→08:29)
[2019-01-24] MEDS ORDERED: VANCOMYCIN 1,000 MG VIAL (RESTRICTED TO ID ONLY) IVPB ONE (08:20)
[2019-01-24 08:22] LABS: BASO % 0.4 % (0-2.0); HEMOGLOBIN 12.7 GM/dL (11.7-16.9); LYMPH % 40.2 % (8-40); MCH 35.5 pg (25.7-33.7); MCHC 34.4 g/dl (32.0-35.9); MEAN CELL VOLUME 103.1 fl (80-96); MEAN PLT VOLUME 7.6 fl (7.5-11.1); NEUT % 48.4 % (42.8-82.8); PLATELET COUNT 178 K/MM3 (134-434); RBC 3.59 M/mm3 (4.00-5.60); WHITE BLOOD COUNT 5.7 K/mm3 (4.0-10.0)
[2019-01-24] MEDS ORDERED: LIDOCAINE HCL/PF 2% SDV 5ML VIAL ONE (08:24)
[2019-01-24] MEDS ORDERED: PROPOFOL 20 ML ONE ×3 (08:24→11:47)
[2019-01-24] MEDS ORDERED: ROCURONIUM BROMIDE 50 MG/5 ML VIAL ONE ×2 (08:24→10:31)
[2019-01-24 08:31] LABS: ALBUMIN 3.8 g/dl (3.4-5.0); ALK PHOS 81 U/L (45-117); ANION GAP 8 MMOL/L (8-16); BILIRUBIN,TOTAL 0.7 mg/dL (0.2-1); BLOOD UREA NITROGEN 16 mg/dL (7-18); CALCIUM 8.5 mg/dL (8.5-10.1); CHLORIDE 100 mmol/L (98-107); CO2 31 mmol/L (21-32); CREATININE 1.1 mg/dL (0.55-1.3); GLUCOSE,RANDOM 165 mg/dL (74-106); POTASSIUM 3.6 mmol/L (3.5-5.1); SGOT/AST 40 U/L (15-37); SGPT/ALT 50 U/L (13-61); SODIUM 139 mmol/L (136-145); TOT PROT 7.4 g/dl (6.4-8.2)
[2019-01-24] MEDS ORDERED: MIDAZOLAM HCL 2 MG/2 ML SINGLE DOSE VIAL ONE ×2 (08:31)
[2019-01-24] MEDS ORDERED: ONDANSETRON 4 MG/2 ML VIAL IVPUSH PRN ×2 (08:35→13:43)
[2019-01-24] MEDS ORDERED: PROMETHAZINE HCL 25 MG/1 ML VIAL IVPB PRN (08:35)
[2019-01-24] MEDS ORDERED: DEXAMETHASONE SOD PHOSPHATE 4 MG/1 ML VIAL IVPUSH PRN (08:35)
[2019-01-24] MEDS ORDERED: LACTATED RINGERS SOLUTION 1,000 ML IV SCH (08:45)
--- NOTE | 2019-01-24 08:50 | CONSULT ---
Consult - text type - Consultation Consultation Note: HISTORY AND PHYSICAL David Pollard is a 68 year old male who has a history of two prior Lumbar surgeries who presents with signs and symptoms of progressive Cervical Spondylotic Myelopathy. MRI demonstrates soft disc herniations at C56 & C67 as well as degenerative kyphosis and spondylosis with hypertrophic posterior longitudinal ligament and osteophytes as well as disc bulges at all levels. The patient has a congenitally narrow spinal canal and this results in effacement of the Ventral and Dorsal CSF spaces and deformation of the Cervical spinal cord. Past Medical History DM, HTN Past Surgical History As above (2 Lumbar procedures) Allergies NKDA (patient has had itching reactions from Morphine in the past ) Family History - Social History - Cigaretts/EtOH/IVDA Review of Systems -PUD/Asthma/CVA/SZ, Patient has a vague history of Cardiac disease Medications Metoprolol/Losartin/Lasix/ASA/Glucophage/Insulin/Flexaril/ Lumigan/Prilosec/Zyrtec Patient underwent medical clearance by his PCP, Dr. Alonzo. Physical Exam Heart RRR Abd Soft, NT/ND, normal bowel sounds Chest Clear to auscultation Extremities Increased tone and diminished sensation bilateral hands Informed consent obtained.
--- NOTE | 2019-01-24 08:52 | HP ---
Admitting History and Physical - Admission Chief Complaint: back pain History of Present Illness: 67 yo M with PMhx of HTN, HLD, DM, and two prior Lumbar surgeries who presents with signs and symptoms of progressive Cervical Spondylotic Myelopathy. MRI demonstrates soft disc herniations at C56 & C67 as well as degenerative kyphosis and spondylosis with hypertrophic posterior longitudinal ligament and osteophytes as well as disc bulges at all levels. The patient has a congenitally narrow spinal canal and this results in effacement of the Ventral and Dorsal CSF spaces and deformation of the Cervical spinal cord. Denies CP,OWEN, SOB, palpitations, abdominal pain, nausea, vomiting, fever or chills. History Source: Patient Limitations to Obtaining History: No Limitations - Past Medical History Cardiovascular: Yes: Aneurysm, HTN, Hyperlipdemia Gastrointestinal: Yes: GERD Psych: Yes: Depression Musculoskeletal: Yes: Other (right foot drop) Endocrine: Yes: Diabetes Mellitus - Past Surgical History Past Surgical History: Yes: Laminectomy - Smoking History Smoking history: Never smoked Have you smoked in the past 12 months: No If you are a former smoker, when did you quit?: 2004 - Alcohol/Substance Use Hx Alcohol Use: No - Social History ADL: Independent History of Recent Travel: No Home Medications - Allergies Allergies/Adverse Reactions: Allergies Allergy/AdvReac Type Severity Reaction Status Date / Time codeine Allergy Intermediate "stomach Verified 01/24/19 07:54 hurts and itchy" morphine Allergy Unknown "itchy" Verified 01/24/19 07:54 - Home Medications Home Medications: Ambulatory Orders Bimatoprost [Lumigan] 2.5 ml OD HS 12/13/15 Cyclobenzaprine HCl [Flexeril -] 10 mg PO TID PRN 12/13/15 Metoprolol Succinate [Toprol XL -] 1 tab PO DAILY 12/13/15 Atorvastatin Ca [Lipitor] 20 mg PO HS tablet 12/26/15 Aspirin [ASA -] 81 mg PO DAILY 05/06/17 Insulin (Novolog 70/30) [Novolog Mix 70/30 Flexpen -] 30 units SQ BID 05/06/17 Sertraline HCl 50 mg PO DAILY 05/06/17 Brimonidine Tartrate/Timolol [Combigan Eye Drops] 5 ml OD BID 01/23/19 Cetirizine HCl [Zyrtec -] 10 mg PO DAILY 01/23/19 Dulaglutide [Trulicity] 1.5 mg SQ WEEKLY 01/23/19 Furosemide 20 mg PO DAILY 01/23/19 Losartan Potassium 50 mg PO DAILY 01/23/19 Omeprazole 20 mg PO DAILY 01/23/19 Pramipexole Di-HCl [Mirapex] 0.5 mg PO HS 01/23/19 metFORMIN HCL [Glucophage -] 500 mg PO BID 01/23/19 Physical Examination Vital Signs: Vital Signs Temperature 98.3 F 01/24/19 07:50 Pulse Rate 104 H 01/24/19 07:50 Respiratory Rate 20 01/24/19 07:50 Blood Pressure 136/83 01/24/19 07:50 O2 Sat by Pulse Oximetry (%) 96 01/24/19 07:42 Constitutional: Yes: No Distress, Calm Eyes: Yes: Conjunctiva Clear, EOM Intact HENT: Yes: Atraumatic, Normocephalic Neck: Yes: Supple, Trachea Midline Cardiovascular: Yes: Regular Rate and Rhythm Respiratory: Yes: Regular, CTA Bilaterally Gastrointestinal: Yes: Normal Bowel Sounds, Soft Extremities: No: Amputation, Calf Tenderness, Cold, Cyanosis, Erythema Edema: No Peripheral Pulses: Left Doralis Pedis: 2+, Right Dorsalis Pedis: 2+ Neurological: Yes: Alert, Oriented ...Motor Strength: WNL Psychiatric: Yes: Alert, Oriented Labs: CBC, BMP 01/24/19 07:50 Problem List - Problems (1) DJD (degenerative joint disease) Assessment/Plan: * Will go for corrective surgery today * will follow recs as per surgery. (2) Diabetes Assessment/Plan: * ADA diet * BGM TIDAC * ISS TID AC (3) GERD (gastroesophageal reflux disease) Assessment/Plan: Continue PPI (4) HLD (hyperlipidemia) Assessment/Plan: continue statin (5) HTN (hypertension) Assessment/Plan: continue ARB, BB and lasix. (6) History of lumbar fusion Assessment/Plan: pain management as above. Visit type - Emergency Visit Emergency Visit: Yes ED Registration Date: 01/24/19 Care time: The patient presented to the Emergency Department on the above date and was hospitalized for further evaluation of their emergent condition. - New Patient This patient is new to me today: Yes Date on this admission: 01/25/19 - Critical Care Critical Care patient: No
[2019-01-24] MEDS ORDERED: DESFLURANE GAS 240 ML BOTTLE IH ONE (09:00)
[2019-01-24] MEDS ORDERED: fentaNYL CITRATE 250 MCG/5 ML VIAL ONE (09:13)
[2019-01-24] MEDS ORDERED: SODIUM CHLORIDE 0.9% P/F 10 ML VIAL IJ ONE ×2 (09:19→12:16)
[2019-01-24] MEDS ORDERED: VANCOMYCIN 1,000 MG VIAL (RESTRICTED TO ID ONLY) ONE (09:19)
[2019-01-24] MEDS ORDERED: LIDOCAINE 1%/EPI 1:100000 (50 ML MULTI DOSE VIAL) NR ONE ×2 (09:25→11:15)
[2019-01-24] MEDS ORDERED: THROMBIN (BOVINE) 5,000 UNIT VIAL TP ONE (09:38)
[2019-01-24] MEDS ORDERED: GELATIN, ABSORBABLE 12-7MM EACH SPONGE TP ONE (09:38)
[2019-01-24] MEDS ORDERED: GENTAMICIN SO4 80 MG/2 ML VIAL IVPB ONE (09:38)
[2019-01-24] MEDS ORDERED: BACITRACIN 50,000 UNITS VIAL TP ONE (09:38)
[2019-01-24] MEDS ORDERED: ePHEDrine SULFATE 50 MG/1 ML AMPULE ONE (11:33)
[2019-01-24] MEDS ORDERED: CYCLOBENZAPRINE HCL 10 MG TABLET (FP) PO PRN (12:08)
[2019-01-24] MEDS ORDERED: ACETAMINOPHEN INJECTION 100 ML IVPB ONE ×2 (12:11→17:35)
[2019-01-24] MEDS ORDERED: DEXAMETHASONE SOD PHOSPHATE 4 MG/1 ML VIAL ONE ×2 (12:13→13:49)
[2019-01-24] MEDS ORDERED: ONDANSETRON 4 MG/2 ML VIAL ONE (12:13)
[2019-01-24] MEDS ORDERED: NEOSTIGMINE METHYLSULFATE 0.5 MG/1 ML - 10 ML MDV ONE (12:26)
[2019-01-24] MEDS ORDERED: GLYCOPYRROLATE 0.2 MG/1 ML VIAL ONE (12:26)
[2019-01-24] MEDS ORDERED: BUPIVACAINE LIPOSOME/PF (EXPAREL) 266 MG/20 ML VIAL NR ONE (13:00)
[2019-01-24] MEDS ORDERED: BUPIVACAINE HCL/PF (5 MG/ML) 30 ML VIAL IJ ONE (13:00)
[2019-01-24] MEDS ORDERED: METOPROLOL TARTRATE 5 MG/5 ML VIAL ONE (13:28)
[2019-01-24] MEDS ORDERED: DEXAMETHASONE SOD PHOSPHATE 4 MG/1 ML VIAL IVPUSH ONE (13:45)
[2019-01-24 13:52] LABS: INR 1.02 (0.83-1.09)
--- NOTE | 2019-01-24 13:54 | OP ---
Operative Note - Note: Operative Date: 01/24/19 Pre-Operative Diagnosis: cervcial spondylotic myelopathy and degenerative kyphosis and spondylosis Operation: anterior C6 corpectomy with CAGE placement and plating. C2 thru C7 laminectomy with posterior fusion Surgeon: Lj Ravi Gift Officer: Chiquis Pelaez Anesthesiologist/MECHANICAL RESEARCH ENGINEER: José Miguel Nunez Anesthesia: General Estimated Blood Loss (mls): 300 Drains, Volume Out (mls): 425 (sethi) Fluid Volume Replaced (mls): 2,100 Operative Report Dictated: Yes
[2019-01-24] MEDS ORDERED: SODIUM CHLORIDE 1,000 ML IV SCH (14:00)
[2019-01-24] MEDS ORDERED: DEXAMETHASONE SOD PHOSPHATE 10 MG/1 ML VIAL IVPUSH ONE (14:18)
--- NOTE | 2019-01-24 14:31 | PN ---
Progress Note (short form) - Note Progress Note: On arrival to PACU patient's Spo2 46% on O2 4L NC but patient was breathingspontaneously and chest compression was held .So started to ambu bagge the patient.Even though there was electrical activity on the associate technician the RN Hardik said that she can not fell the pulse so code 99 was called and chest compression started.When i intubated the patient patient was breathing spontaneously and chest compression was stopped as patient had rhythm and pulse.Patient was put on T piece breathing spontaneously.There was very little or no leak on leak test forETT so Dexamethasone 10mg given iv to reduce airway swelling.Will make sure patient is filly awake before extubating.Patient is stable now.
[2019-01-24] MEDS ORDERED: HYDROmorphone *PCA* 10MG/50ML DISP.SYRIN PCA ONE (16:05)
[2019-01-24] MEDS ORDERED: LABETALOL HCL 5 MG/1 ML (100MG/20 ML VIAL) IVPUSH ONE ×3 (16:45→17:00)
[2019-01-24] MEDS ORDERED: LABETALOL HCL 5 MG/1 ML (100MG/20 ML VIAL) ONE (16:51)
[2019-01-24] MEDS ORDERED: ACETAMINOPHEN 1000 MG/100 ML VIAL (NON FORMULARY) IVPB ONE (17:45)
--- NOTE | 2019-01-24 18:19 | PN ---
Teaching Attending Note Name of Resident: Anoop Catherine ATTENDING PHYSICIAN STATEMENT I saw and evaluated the patient. I reviewed the resident's note and discussed the case with the resident. I agree with the resident's findings and plan as documented. SUBJECTIVE: This is a 68 year old man with a history of HTN, hyperlipidemia, type 2 DM, depression, GERD, lumbar laminectomies who presents for cervical spine surgery for cervical disc herniations with progressive cervical spondylotic myelopathy. Patient is currently intubated post-op. OBJECTIVE: Vital Signs Period Temp Pulse Resp BP Sys/Sales Pulse Ox Last 24 Hr 98.3 F-98.6 F 103-122 6-20 125-158/35-113 46-100 HEART: S1S2, tachycardic LUNGS: Clear ABDOMEN: Obese, soft, non-distended, normal BS EXTREMITIES: No edema Laboratory Tests 01/24/19 01/24/19 01/24/19 07:15 07:50 07:50 WBC 5.7 RBC 3.59 L Hgb 12.7 Hct 37.0 MCV 103.1 H MCH 35.5 H MCHC 34.4 RDW 15.0 Plt Count 178 MPV 7.6 D Absolute Neuts (auto) 2.8 Neutrophils % 48.4 Lymphocytes % 40.2 H Monocytes % 8.0 Eosinophils % 3.0 Basophils % 0.4 Nucleated RBC % 0 PT with INR 12.00 INR 1.02 Sodium Potassium Chloride Carbon Dioxide Anion Gap BUN Creatinine Creat Clearance w eGFR POC Glucometer 181 Random Glucose Calcium Total Bilirubin AST ALT Alkaline Phosphatase Total Protein Albumin Blood Type Antibody Screen 01/24/19 01/24/19 01/24/19 07:50 07:50 15:00 WBC RBC Hgb Hct MCV MCH MCHC RDW Plt Count MPV Absolute Neuts (auto) Neutrophils % Lymphocytes % Monocytes % Eosinophils % Basophils % Nucleated RBC % PT with INR INR Sodium 139 Potassium 3.6 Chloride 100 Carbon Dioxide 31 Anion Gap 8 BUN 16 Creatinine 1.1 Creat Clearance w eGFR 66.57 POC Glucometer 280 Random Glucose 165 H Calcium 8.5 Total Bilirubin 0.7 AST 40 H ALT 50 Alkaline Phosphatase 81 Total Protein 7.4 Albumin 3.8 Blood Type O POSITIVE Antibody Screen Negative Current Medications Generic Name Dose Route Start Last Admin Trade Name Freq PRN Reason Stop Dose Admin Acetaminophen 1,000 mg 01/24/19 18:30 Ofirmev Injection - IVPB 01/25/19 06:31 Q6H [facility] Aspirin 81 mg 01/25/19 10:00 Asa - PO DAILY [facility] Atorvastatin Calcium 20 mg 01/24/19 22:00 Lipitor - PO HS [facility] Brimonidine Tartrate 1 drop 01/24/19 22:00 Alphagan 0.2% - OU BID OVI Cyclobenzaprine HCl 10 mg 01/24/19 12:08 Flexeril - PO TID PRN MUSCLE SPASMS Dexamethasone Sodium Phosphate 4 mg 01/24/19 08:35 Decadron Injection - IVPUSH ONCE PRN NAUSEA AND/OR VOMITING Dexamethasone Sodium Phosphate 8 mg 01/24/19 20:00 Decadron Injection - IVPB Q6H [facility] Diphenhydramine HCl 12.5 mg 01/24/19 08:35 Benadryl Injection - IVPUSH ONCE PRN FOR ITCHING Furosemide 20 mg 01/25/19 10:00 Lasix - PO DAILY [facility] Heparin Sodium (Porcine) 5,000 unit 01/24/19 18:00 Heparin - SQ Q8H-IV [facility] Hydromorphone HCl 10 mg 01/24/19 08:45 Dilaudid Harnessmaker - PATIENT ATTENDANT 01/31/19 08:35 PATIENT ATTENDANT [facility] Protocol Sodium Chloride 1,000 mls @ 75 mls/hr 01/24/19 17:32 Normal Saline - IV ASDIR [facility] Cefazolin Sodium 1 gm in 50 mls @ 100 mls/hr 01/24/19 20:00 Ancef 1 Gm Premixed Ivpb - IVPB 01/25/19 21:59 Q8H [facility] Insulin Aspart 1 vial 01/24/19 16:30 Novolog Vial Sliding Scale - SQ TIDAC [facility] Protocol Latanoprost 2.5 drop 01/24/19 22:00 Xalatan 0.005% Eye Drops - OD HS [facility] Loratadine 10 mg 01/25/19 10:00 Claritin - PO DAILY [facility] Losartan Potassium 50 mg 01/25/19 10:00 Cozaar - PO DAILY [facility] Metoprolol Succinate 25 mg 01/25/19 10:00 Toprol Xl - PO DAILY [facility] Ondansetron HCl 4 mg 01/24/19 08:35 Zofran Injection IVPUSH Q4H PRN NAUSEA AND/OR VOMITING Ondansetron HCl 4 mg 01/24/19 13:43 Zofran Injection IVPUSH Q6H PRN NAUSEA Pantoprazole Sodium 20 mg 01/25/19 10:00 Protonix - PO DAILY [facility] Pramipexole Dihydrochloride 0.5 mg 01/24/19 22:00 Mirapex - PO HS OVI Promethazine HCl 12.5 mg 01/24/19 08:35 Phenergan Injection - IVPB Q6H PRN NAUSEA AND/OR VOMITING Sertraline HCl 50 mg 01/25/19 10:00 Zoloft - PO DAILY [facility] Timolol Maleate 1 drop 01/24/19 22:00 Timoptic 0.5% OU BID [facility] ASSESSMENT AND PLAN: This is a 68 year old man with a history of HTN, hyperlipidemia, type 2 DM, depression, GERD, lumbar laminectomies who underwent anterior C6 corpectomy with CAGE placement and plating, C2-C7 laminectomies with posterior fusion for cervical spondylotic myelopathy. 1. Acute hypoxic respiratory failure - Patient intubated post-op - Admit to ICU 2. Cervical spondylotic myelopathy - s/p anterior C6 corpectomy with CAGE placement and plating, C2-C7 laminectomies today 3. HTN - On Cozaar, Toprol XL, Lasix at home 4. Hyperlipidemia - On Lipitor at home 5. Type 2 DM - On metformin, Novolog 70/30, Trulicity at home - Hold home meds - Fingersticks with Novolog sliding scale 6. Depression - On Zoloft at home 7. GERD - On Prilosec at home
[2019-01-24] MEDS: ACETAMINOPHEN 1000 MG/100 ML VIAL (NON FORMULARY) IVPB SCH (18:30)
[2019-01-24] MEDS: SODIUM CHLORIDE 1,000 ML IV SCH (19:20)
[2019-01-24] MEDS ORDERED: VANCOMYCIN HCL 1,250 MG in DEXTROSE 5%-WATER - 250 ML IVPB ONE (19:45)
[2019-01-24] MEDS ORDERED: PIPERACILLIN/TAZOB 4.5 GM 4.5 GM in DEXTROSE 5%-WATER 100 ML IVPB ONE (19:45)
[2019-01-24] MEDS: INSULIN SLIDING SCALE (NOVOLOG) 1 VIAL SQ SCH (20:42)
[2019-01-24] MEDS: HEPARIN NA (PORCINE) 5,000 UNITS/ML 1ML VIAL SQ SCH (20:45)
[2019-01-24] MEDS: DEXAMETHASONE SOD PHOSPHATE 4 MG/1 ML VIAL IVPB SCH (20:49)
[2019-01-24] MEDS: CEFAZOLIN 1 GM/D5W 1 GM/50 ML BAG IVPB SCH (20:50)
[2019-01-24] MEDS: HYDROmorphone *PCA* 10MG/50ML DISP.SYRIN PCA SCH (20:52)
[2019-01-24 20:54] LABS: BASO % 0.1 % (0-2.0); EOS % 0.1 % (0-4.5); HEMATOCRIT 34.8 % (35.4-49); HEMOGLOBIN 11.9 GM/dL (11.7-16.9); LYMPH % 7.3 % (8-40); MCH 35.9 pg (25.7-33.7); MCHC 34.2 g/dl (32.0-35.9); MEAN CELL VOLUME 105.1 fl (80-96); MEAN PLT VOLUME 8.7 fl (7.5-11.1); MONO % 1.8 % (3.8-10.2); NEUT % 90.7 % (42.8-82.8); PLATELET COUNT 181 K/MM3 (134-434); RBC 3.31 M/mm3 (4.00-5.60)
[2019-01-24 21:18] LABS: ANISOCYTOSIS 1+; MACROCYTOSIS 2+; PLATELET ESTIMATE ADEQUATE
--- NOTE | 2019-01-24 21:27 | CONSULT ---
Consultation: REQUESTING PROVIDER: CONSULT REQUEST: We have been asked to medically evaluate this patient for ( post op care---ICU admission). HISTORY OF PRESENT ILLNESS: Patient is a 68 year old male presented to the hospital for an elective surgery for progressive Cervical Spondylotic Myelopathy. He underwent corpectomy and laminectomy with fusion- anterior approach. In the PACU, he was extubated post op. When he arrived to the PACU, as per the EMR, he became hypoxic to 46% on NC , RN couldn't feel pulse, Code 99 was called, chest compression was started. Patient was reintubated, he started breathing spontaneously, compression was stopped. Patient had rhythm and pulse on the monitor. Dexamethasone 10 mg IV was given. Patient woke up, passed weaning trial and was extubated. Then brought in to the ICU for further monitoring. Upon assessment, patient reports that he has pain at the surgical site. ROS negative. Vitals 135/80 mmHg, P-115 bpm, RR-22, Spo20 98 %. BILL drain in place. Patient was unable to urinate using urinal, sethi catheter inserted, there was about 600 ml of urinary output. PAST MEDICAL HISTORY: HTN, HLD, DM, depression, GERD, lumbar laminectomies ALLERIGES: Codeine . (Patient reported that he is not allergic to morphine) PAST SURGICAL HISTORY: 2 back surgeries. SOCIAL HISTORY: Smoking- Smoked a pack/day for 30 yrs, quit in 2004 Alcohol- Quit 20 yrs ago Drugs- Denies OCCUPATION: Retired trash collector truck driver FAMILY HISTORY: Non contributory TRAVEL: None REVIEW OF SYSTEMS: CONSTITUTIONAL: Absent: fever, chills, diaphoresis, generalized weakness, malaise, loss of appetite, weight change HEENT: Absent: rhinorrhea, nasal congestion, throat pain, throat swelling, difficulty swallowing, mouth swelling, ear pain, eye pain, visual changes CARDIOVASCULAR: Absent: chest pain, syncope, palpitations, irregular heart rate, lightheadedness , peripheral edema RESPIRATORY: Absent: cough, shortness of breath, dyspnea with exertion, orthopnea, wheezing, stridor, hemoptysis GASTROINTESTINAL: Absent: abdominal pain, abdominal distension, nausea, vomiting, diarrhea, constipation, melena, hematochezia GENITOURINARY: Absent: dysuria, frequency, urgency, hesitancy, hematuria, flank pain, genital pain MUSCULOSKELETAL: Present: Pain at the surgical site. Absent: myalgia, arthralgia, joint swelling, back pain, neck pain SKIN: Absent: rash, itching, pallor HEMATOLOGIC/IMMUNOLOGIC: Absent: easy bleeding, easy bruising, lymphadenopathy, frequent infections ENDOCRINE: Absent: unexplained weight gain, unexplained weight loss, heat intolerance, cold intolerance NEUROLOGIC: Absent: headache, focal weakness or paresthesias, dizziness, unsteady gait, seizure, mental status changes, bladder or bowel incontinence PSYCHIATRIC: Absent: anxiety, depression, suicidal or homicidal ideation, hallucinations. PHYSICAL EXAMINATION Vital Signs - 24 hr 01/24/19 01/24/19 01/24/19 07:42 07:50 13:40 Temperature 98.3 F 98.6 F Pulse Rate 104 H 104 H Respiratory 20 6 L Rate Blood Pressure 136/83 168/99 O2 Sat by Pulse 96 47 L Oximetry (%) 01/24/19 01/24/19 01/24/19 13:41 13:43 13:45 Temperature Pulse Rate 103 H 105 H 104 H Respiratory 19 16 13 Rate Blood Pressure 151/113 H 158/101 H 149/110 H O2 Sat by Pulse 100 100 100 Oximetry (%) 01/24/19 01/24/19 01/24/19 14:00 14:15 14:30 Temperature Pulse Rate 108 H 111 H 111 H Respiratory 16 17 13 Rate Blood Pressure 125/88 142/35 L 145/82 O2 Sat by Pulse 100 100 100 Oximetry (%) 01/24/19 01/24/19 01/24/19 14:45 15:00 15:15 Temperature Pulse Rate 113 H 112 H 112 H Respiratory 12 13 13 Rate Blood Pressure 150/91 146/69 154/90 O2 Sat by Pulse 100 100 100 Oximetry (%) 01/24/19 01/24/19 01/24/19 15:30 15:45 16:00 Temperature Pulse Rate 114 H 113 H 115 H Respiratory 17 14 15 Rate Blood Pressure 133/87 148/89 153/85 O2 Sat by Pulse 100 100 100 Oximetry (%) 01/24/19 01/24/19 01/24/19 16:15 16:30 16:45 Temperature Pulse Rate 119 H 122 H 124 H Respiratory 16 15 14 Rate Blood Pressure 147/90 148/89 147/101 H O2 Sat by Pulse 99 99 100 Oximetry (%) 01/24/19 01/24/19 01/24/19 17:00 17:15 17:30 Temperature Pulse Rate 119 H 119 H 122 H Respiratory 14 16 13 Rate Blood Pressure 160/93 148/92 157/86 O2 Sat by Pulse 100 100 100 Oximetry (%) 01/24/19 01/24/19 01/24/19 17:45 18:00 18:30 Temperature 100.6 F H Pulse Rate 125 H 126 H 123 H Respiratory 15 17 17 Rate Blood Pressure 143/93 149/106 H 157/76 O2 Sat by Pulse 100 100 Oximetry (%) 01/24/19 01/24/19 19:00 19:01 Temperature 101.6 F H Pulse Rate 123 H Respiratory 17 Rate Blood Pressure 157/76 O2 Sat by Pulse 100 Oximetry (%) GENERAL: Middle aged male, Awake, alert, and fully oriented, in no acute distress. Sethi in place. BILL drain in place. EYES: EOM intact, no pallor or icterus. EARS, NOSE, THROAT: Ears normal. Moist mucous membranes. NECK: Supple. LUNGS: B/L lungs clear, no added sounds. HEART: Regular rate and rhythm, normal S1 and S2 without murmur. ABDOMEN: Soft, nontender, no organomegaly, BS +. MUSCULOSKELETAL: Pain at the surgical site. UPPER EXTREMITIES: No peripheral edema. LOWER EXTREMITIES: No peripheral edema. NEUROLOGICAL: No facial droop. Normal speech. Gait not observed. PSYCHIATRIC: Cooperative. Good eye contact. Appropriate mood and affect. SKIN: Warm, dry, normal turgor, no rashes or lesions noted. Laboratory Results - last 24 hr 01/24/19 01/24/19 01/24/19 07:15 07:50 07:50 WBC 5.7 RBC 3.59 L Hgb 12.7 Hct 37.0 MCV 103.1 H MCH 35.5 H MCHC 34.4 RDW 15.0 Plt Count 178 MPV 7.6 D Absolute Neuts (auto) 2.8 Neutrophils % 48.4 Lymphocytes % 40.2 H Monocytes % 8.0 Eosinophils % 3.0 Basophils % 0.4 Nucleated RBC % 0 Platelet Estimate Platelet Comment Anisocytosis Macrocytosis PT with INR 12.00 INR 1.02 Sodium Potassium Chloride Carbon Dioxide Anion Gap BUN Creatinine Creat Clearance w eGFR POC Glucometer 181 Random Glucose Calcium Total Bilirubin AST ALT Alkaline Phosphatase Total Protein Albumin Blood Type Antibody Screen 01/24/19 01/24/19 01/24/19 07:50 07:50 15:00 WBC RBC Hgb Hct MCV MCH MCHC RDW Plt Count MPV Absolute Neuts (auto) Neutrophils % Lymphocytes % Monocytes % Eosinophils % Basophils % Nucleated RBC % Platelet Estimate Platelet Comment Anisocytosis Macrocytosis PT with INR INR Sodium 139 Potassium 3.6 Chloride 100 Carbon Dioxide 31 Anion Gap 8 BUN 16 Creatinine 1.1 Creat Clearance w eGFR 66.57 POC Glucometer 280 Random Glucose 165 H Calcium 8.5 Total Bilirubin 0.7 AST 40 H ALT 50 Alkaline Phosphatase 81 Total Protein 7.4 Albumin 3.8 Blood Type O POSITIVE Antibody Screen Negative 01/24/19 20:00 WBC 9.0 RBC 3.31 L Hgb 11.9 Hct 34.8 L MCV 105.1 H MCH 35.9 H MCHC 34.2 RDW 15.0 Plt Count 181 MPV 8.7 D Absolute Neuts (auto) 8.2 H Neutrophils % 90.7 H Lymphocytes % 7.3 L D Monocytes % 1.8 L Eosinophils % 0.1 D Basophils % 0.1 Nucleated RBC % 0 Platelet Estimate Adequate Platelet Comment No clumping noted Anisocytosis 1+ Macrocytosis 2+ PT with INR INR Sodium Potassium Chloride Carbon Dioxide Anion Gap BUN Creatinine Creat Clearance w eGFR POC Glucometer Random Glucose Calcium Total Bilirubin AST ALT Alkaline Phosphatase Total Protein Albumin Blood Type Antibody Screen Active Medications Generic Name Dose Route Start Last Admin Trade Name Freq PRN Reason Stop Dose Admin Acetaminophen 1,000 mg 01/24/19 18:30 01/24/19 18:30 Ofirmev Injection - IVPB 01/25/19 06:31 Not Given Q6H [facility] Aspirin 81 mg 01/25/19 10:00 Asa - PO DAILY [facility] Atorvastatin Calcium 20 mg 01/24/19 22:00 Lipitor - PO HS [facility] Brimonidine Tartrate 1 drop 01/24/19 22:00 Alphagan 0.2% - OU BID [facility] Cyclobenzaprine HCl 10 mg 01/24/19 12:08 Flexeril - PO TID PRN MUSCLE SPASMS Dexamethasone Sodium Phosphate 4 mg 01/24/19 08:35 Decadron Injection - IVPUSH ONCE PRN NAUSEA AND/OR VOMITING Dexamethasone Sodium Phosphate 8 mg 01/24/19 20:00 01/24/19 20:49 Decadron Injection - IVPB 8 mg Q6H OVI Administration Diphenhydramine HCl 12.5 mg 01/24/19 08:35 Benadryl Injection - IVPUSH ONCE PRN FOR ITCHING Furosemide 20 mg 01/25/19 10:00 Lasix - PO DAILY [facility] Heparin Sodium (Porcine) 5,000 unit 01/24/19 18:00 01/24/19 20:45 Heparin - SQ Not Given Q8H-IV [facility]VI Hydromorphone HCl 10 mg 01/24/19 08:45 01/24/19 20:52 Dilaudid Tone Artist Apprentice - BALLOON DIPPER 01/31/19 08:35 Not Given BALLOON DIPPER [facility] Protocol Sodium Chloride 1,000 mls @ 75 mls/hr 01/24/19 17:32 01/24/19 19:20 Normal Saline - IV 75 mls/hr ASDIR OVI Administration Cefazolin Sodium 1 gm in 50 mls @ 100 mls/hr 01/24/19 20:00 01/24/19 20:50 Ancef 1 Gm Premixed Ivpb - IVPB 01/25/19 21:59 100 mls/hr Q8H OVI Administration Vancomycin HCl 1,250 mg/ 250 mls @ 250 mls/2 hr 01/24/19 19:45 01/24/19 20:50 Dextrose IVPB 01/24/19 21:44 250 mls/2 hr ONCE ONE Administration Protocol Insulin Aspart 1 vial 01/24/19 16:30 01/24/19 20:42 Novolog Vial Sliding Scale - SQ Not Given TIDAC [facility] Protocol Latanoprost 2.5 drop 01/24/19 22:00 Xalatan 0.005% Eye Drops - OD HS [facility] Loratadine 10 mg 01/25/19 10:00 Claritin - PO DAILY [facility] Losartan Potassium 50 mg 01/25/19 10:00 Cozaar - PO DAILY [facility] Metoprolol Succinate 25 mg 01/25/19 10:00 Toprol Xl - PO DAILY [facility] Ondansetron HCl 4 mg 01/24/19 08:35 Zofran Injection IVPUSH Q4H PRN NAUSEA AND/OR VOMITING Ondansetron HCl 4 mg 01/24/19 13:43 Zofran Injection IVPUSH Q6H PRN NAUSEA Pantoprazole Sodium 20 mg 01/25/19 10:00 Protonix - PO DAILY [facility] Pramipexole Dihydrochloride 0.5 mg 01/24/19 22:00 Mirapex - PO HS OVI Promethazine HCl 12.5 mg 01/24/19 08:35 Phenergan Injection - IVPB Q6H PRN NAUSEA AND/OR VOMITING Sertraline HCl 50 mg 01/25/19 10:00 Zoloft - PO DAILY O[facility] Timolol Maleate 1 drop 01/24/19 22:00 Timoptic 0.5% OU BID [facility] ASSESSMENT/PLAN: Patient is a 68 year old male with significant past medical history of HTN, HLD , DM, depression, GERD, lumbar laminectomies presented to the hospital for an elective surgery for progressive Cervical Spondylotic Myelopathy. # Cervical spondylotic myelopathy s/p surgery---POD 0 Anterior C6 corpectomy with CAGE placement and plating. C2 thru C7 laminectomy with posterior fusion EBL 300 mls, volume replaced 2100 mls Patient had an episode of hypoxia to 46 % in the PACU, lost pulse, code 99 called, chest compressions done, intubated, patient woke up, passed the weaning trail and now exubated BALLOON DIPPER pump for pain control IV Morphine 2 mg given once for break through pain (pt states he is not allergic to Morphine) IV Benadryl 12.5 mg given once Sethi placed as patient had retention of urine, now draining yellowish urine OOB to chair in AM Physical therapy in AM Advance diet as tolerated # Elevated troponin 0.18---> next one ordered Could be from demand ischemia Will do an EKG in AM. # Hypertension-controlled Continue Losartan 50mg PO daily # Hyperlipidemia Continue statin when able # FEN Not on IV fluids Electrolytes to be repeated in AM Advance diet after he passes flatus # Prophylaxis For DVT: Heparin 5000 IU sq TID For GI: Protonix 20 mg Daily # Code Status: Full Code Illness, Investigation and Plan of care explained to the patient. He verbalized understanding. Dispo: We will continue to follow the patient. Thank you for this consultative opportunity. Visit type - Emergency Visit Emergency Visit: Yes ED Registration Date: 01/24/19 Care time: The patient presented to the Emergency Department on the above date and was hospitalized for further evaluation of their emergent condition. - New Patient This patient is new to me today: Yes Date on this admission: 01/25/19 - Critical Care Critical Care patient: Yes Total Critical Care Time (in minutes): 35 Critical Care Statement: The care of this patient involved high complexity decision making to prevent further life threatening deterioration of the patient 's condition and/or to evaluate & treat vital organ system(s) failure or risk of failure.
[2019-01-24] MEDS ORDERED: LATANOPROST 0.005% OPHTH SOLN 2.5ML BOTTLE OD SCH (22:00)
[2019-01-24] MEDS ORDERED: CEFAZOLIN 1 GM/D5W 1 GM/50 ML BAG IVPB SCH (22:00)
[2019-01-24] MEDS ORDERED: PATIENT'S OWN MEDICATION (NON-FORMULARY) (Brimonidine Tartrate/Timolol [Combigan 0.2%-0.5% OD SCH (22:00)
[2019-01-24] MEDS ORDERED: MORPHINE SULFATE 2 MG/ML VIAL IVPUSH ONE (22:35)
[2019-01-24] MEDS ORDERED: MORPHINE SULFATE 2 MG/ML VIAL ONE (22:35)
[2019-01-24] MEDS: BRIMONIDINE TARTRATE 0.2% OPHTHALMIC 5 ML BOTTLE OU SCH (23:09)
[2019-01-24] MEDS: PRAMIPEXOLE DIHYDROCHLORIDE 0.5 MG TABLET PO SCH (23:10)
[2019-01-24] MEDS: TIMOLOL 0.5% OPHTHALMIC SOL 5 ML BOTTLE OU SCH (23:11)
[2019-01-24] MEDS: ATORVASTATIN CA 20 MG TABLET (FP) PO SCH (23:18)
[2019-01-24] MEDS: LATANOPROST 0.005% OPHTH SOLN 2.5ML BOTTLE OD SCH (23:37)
[2019-01-24] MEDS ORDERED: LORazepam 2 MG/ML SDV VIAL IVPUSH ONE (23:38)
[2019-01-24] MEDS ORDERED: PT OWN MED DRAWER 7, Y5N ONE (23:53)
[2019-01-25] MEDS: ACETAMINOPHEN 1000 MG/100 ML VIAL (NON FORMULARY) IVPB SCH ×2 (00:36→06:35)
[2019-01-25] MEDS: DEXAMETHASONE SOD PHOSPHATE 4 MG/1 ML VIAL IVPB SCH ×4 (01:29→20:41)
[2019-01-25] MEDS: HEPARIN NA (PORCINE) 5,000 UNITS/ML 1ML VIAL SQ SCH ×3 (01:30→17:33)
[2019-01-25] MEDS: CEFAZOLIN 1 GM/D5W 1 GM/50 ML BAG IVPB SCH ×3 (03:17→20:41)
[2019-01-25] MEDS: INSULIN SLIDING SCALE (NOVOLOG) 1 VIAL SQ SCH ×3 (06:36→17:30)
[2019-01-25 06:52] LABS: HEMATOCRIT 32.3 % (35.4-49); HEMOGLOBIN 11.4 GM/dL (11.7-16.9); MCH 36.7 pg (25.7-33.7); MCHC 35.5 g/dl (32.0-35.9); MEAN CELL VOLUME 103.6 fl (80-96); MEAN PLT VOLUME 8.1 fl (7.5-11.1); PLATELET COUNT 179 K/MM3 (134-434); RBC 3.12 M/mm3 (4.00-5.60); WHITE BLOOD COUNT 9.3 K/mm3 (4.0-10.0)
[2019-01-25] MEDS: SODIUM CHLORIDE 1,000 ML IV SCH ×2 (08:00→17:32)
--- NOTE | 2019-01-25 08:08 | PN ---
Physical Exam: SUBJECTIVE: Patient seen and examined at bedside. No acute events overnight. Pain controlled. Denies f/c, n/v, chest pain, abd pain. OBJECTIVE: Vital Signs Period Temp Pulse Resp BP Sys/Sales Pulse Ox Last 24 Hr 98.6 F-102.2 F 97-132 6-21 125-168/35-113 47-100 GENERAL: Middle aged male, Awake, alert, and fully oriented, in no acute distress. Kumar in place. BILL drain in place. EYES: EOM intact, no pallor or icterus. EARS, NOSE, THROAT: Ears normal. Moist mucous membranes. NECK: Supple. LUNGS: B/L lungs clear, no added sounds. HEART: Regular rate and rhythm, normal S1 and S2 without murmur. ABDOMEN: Soft, nontender, no organomegaly, +BS MUSCULOSKELETAL: Pain at the surgical site. UPPER EXTREMITIES: No peripheral edema. LOWER EXTREMITIES: No peripheral edema. NEUROLOGICAL: No facial droop. Normal speech. Gait not observed. PSYCHIATRIC: Cooperative. Good eye contact. Appropriate mood and affect. SKIN: Warm, dry, normal turgor, no rashes or lesions noted. CBCD WBC 9.3 K/mm3 (4.0-10.0) 01/25/19 05:30 RBC 3.12 M/mm3 (4.00-5.60) L 01/25/19 05:30 Hgb 11.4 GM/dL (11.7-16.9) L 01/25/19 05:30 Hct 32.3 % (35.4-49) L 01/25/19 05:30 MCV 103.6 fl (80-96) H 01/25/19 05:30 MCHC 35.5 g/dl (32.0-35.9) 01/25/19 05:30 RDW 15.0 % (11.9-15.9) 01/25/19 05:30 Plt Count 179 K/MM3 (134-434) 01/25/19 05:30 MPV 8.1 fl (7.5-11.1) 01/25/19 05:30 CMP Sodium 139 mmol/L (136-145) 01/24/19 07:50 Potassium 3.6 mmol/L (3.5-5.1) 01/24/19 07:50 Chloride 100 mmol/L (98-107) 01/24/19 07:50 Carbon Dioxide 31 mmol/L (21-32) 01/24/19 07:50 Anion Gap 8 MMOL/L (8-16) 01/24/19 07:50 BUN 16 mg/dL (7-18) 01/24/19 07:50 Creatinine 1.1 mg/dL (0.55-1.3) 01/24/19 07:50 Creat Clearance w eGFR 66.57 (>60) 01/24/19 07:50 Calcium 8.5 mg/dL (8.5-10.1) 01/24/19 07:50 Total Bilirubin 0.7 mg/dL (0.2-1) 01/24/19 07:50 AST 40 U/L (15-37) H 01/24/19 07:50 ALT 50 U/L (13-61) 01/24/19 07:50 Alkaline Phosphatase 81 U/L (45-117) 01/24/19 07:50 Total Protein 7.4 g/dl (6.4-8.2) 01/24/19 07:50 Albumin 3.8 g/dl (3.4-5.0) 01/24/19 07:50 Active Medications Aspirin (Asa -) 81 mg PO DAILY [facility] Atorvastatin Calcium (Lipitor -) 20 mg PO HS [facility] Last Admin: 01/24/19 23:18 Dose: 20 mg Brimonidine Tartrate (Alphagan 0.2% -) 1 drop OU BID [facility] Last Admin: 01/24/19 23:09 Dose: 1 drop Cyclobenzaprine HCl (Flexeril -) 10 mg PO TID PRN PRN Reason: MUSCLE SPASMS Dexamethasone Sodium Phosphate (Decadron Injection -) 4 mg IVPUSH ONCE PRN PRN Reason: NAUSEA AND/OR VOMITING Dexamethasone Sodium Phosphate (Decadron Injection -) 8 mg IVPB Q6H [facility] Last Admin: 01/25/19 01:29 Dose: 8 mg Diphenhydramine HCl (Benadryl Injection -) 12.5 mg IVPUSH ONCE PRN PRN Reason: FOR ITCHING Furosemide (Lasix -) 20 mg PO DAILY [facility] Heparin Sodium (Porcine) (Heparin -) 5,000 unit SQ Q8H-IV [facility] Last Admin: 01/25/19 01:30 Dose: 5,000 unit Hydromorphone HCl (Dilaudid [place]er -) 10 mg CHEMICAL PROCESS ANALYST CHEMICAL PROCESS ANALYST [facility]; Protocol Stop: 01/31/19 08:35 Last Admin: 01/24/19 20:52 Dose: Not Given Sodium Chloride (Normal Saline -) 1,000 mls @ 75 mls/hr IV ASDIR [facility] Last Admin: 01/24/19 19:20 Dose: 75 mls/hr Cefazolin Sodium (Ancef 1 Gm Premixed Ivpb -) 1 gm in 50 mls @ 100 mls/hr IVPB Q8H [facility] Stop: 01/25/19 21:59 Last Admin: 01/25/19 03:17 Dose: 100 mls/hr Insulin Aspart (Novolog Vial Sliding Scale -) 1 vial SQ TIDAC [facility]; Protocol Last Admin: 01/25/19 06:36 Dose: 8 units Latanoprost (Xalatan 0.005% Eye Drops -) 1 drop OD HS [facility] Last Admin: 01/24/19 23:37 Dose: 1 drop Loratadine (Claritin -) 10 mg PO DAILY [facility] Losartan Potassium (Cozaar -) 50 mg PO DAILY [facility] Metoprolol Succinate (Toprol Xl -) 25 mg PO DAILY [facility] Ondansetron HCl (Zofran Injection) 4 mg IVPUSH Q4H PRN PRN Reason: NAUSEA AND/OR VOMITING Ondansetron HCl (Zofran Injection) 4 mg IVPUSH Q6H PRN PRN Reason: NAUSEA Pantoprazole Sodium (Protonix -) 20 mg PO DAILY [facility] Pramipexole Dihydrochloride (Mirapex -) 0.5 mg PO HS [facility] Last Admin: 01/24/19 23:10 Dose: 0.5 mg Promethazine HCl (Phenergan Injection -) 12.5 mg IVPB Q6H PRN PRN Reason: NAUSEA AND/OR VOMITING Sertraline HCl (Zoloft -) 50 mg PO DAILY [facility] Timolol Maleate (Timoptic 0.5%) 1 drop OU BID [facility] Last Admin: 01/24/19 23:11 Dose: 1 drop ASSESSMENT/PLAN: 68M with significant pmhx of HTN, HLD, DM, depression, GERD, lumbar laminectomies presented to the hospital for an elective surgery for progressive Cervical Spondylotic Myelopathy. NEURO # Cervical spondylotic myelopathy s/p Anterior C6 corpectomy with CAGE placement and plating. C2 thru C7 laminectomy with posterior fusion, POD 1 -cont CHEMICAL PROCESS ANALYST pump for pain control per anesthesia -Kumar placed as patient had retention of urine, now draining yellowish urine -OOB to chair/PT -IS -Abx per surg team -monitor drain outpput CV #Elevated troponin -trending down #Hypertension-controlled -Continue Losartan 50mg PO daily #Hyperlipidemia -Continue statin when able FEN -PO hydration -replete lytes PRN -CLD PROPHYLAXIS -Heparin 5000 IU sq TID -Protonix 20 mg Daily # Code Status: Full Code Illness, Investigation and Plan of care explained to the patient. He verbalized understanding. Dispo: We will continue to follow the patient. Thank you for this consultative opportunity. Visit type - Emergency Visit Emergency Visit: Yes ED Registration Date: 01/24/19 Care time: The patient presented to the Emergency Department on the above date and was hospitalized for further evaluation of their emergent condition. - New Patient This patient is new to me today: Yes Date on this admission: 01/25/19 - Critical Care Critical Care patient: Yes Total Critical Care Time (in minutes): 35 Critical Care Statement: The care of this patient involved high complexity decision making to prevent further life threatening deterioration of the patient 's condition and/or to evaluate & treat vital organ system(s) failure or risk of failure.
--- NOTE | 2019-01-25 08:15 | PN ---
Progress Note (short form) - Note Progress Note: Surgery POD#1 anterior C6 corpectomy with CAGE placement and plating. C2 thru C7 laminectomy with posterior fusion, with Rapid response in the PACU, Patient reintubated for a short time after desatting. Patient has been stable since extubation in PACU yesterday afternoon. No acute events overnight. Patient seen and examined at bedside with no complaints. His pain is controlled with FLOTATION TENDER and he denies any CP, SOB, N/V, fever or chills. Vital Signs Temp 99 F 01/25/19 06:00 Pulse 112 H 01/25/19 06:00 Resp 18 01/25/19 06:00 BP 151/88 01/25/19 06:00 Pulse Ox 100 01/24/19 22:00 Intake & Output 01/24/19 01/24/19 01/25/19 11:59 23:59 11:59 Intake Total 2100 100 1407 Output Total 725 2395 1340 Balance 1375 -2295 67 Weight 188 lb 1 oz Intake: IV 2100 100 1157 Normal Saline - 1,000 ml 1157 @ 75 mls/hr IV ASDIR OVI Rx#:[id number] IVPB 200 Oral 50 Output: Drainage 295 140 Anterior 60 40 Posterior 80 100 Urine 425 2100 1200 Kumar 900 1200 Estimated Blood Loss 300 Other: Voiding Method Indwelling Catheter Weight Measurement Method Built in [facility] CBC, BMP 01/25/19 05:30 PE A&Ox3, NAD Unlabored resp on 2L NC HEENT: NC/AT,no facial droop, tongue midline on protrusion. anterior incision, dressing C/D/I with surrounding tissue intact, mild erythema with no evidence of tracking erythema, drain at right anterior neck in good position with bloody d/c. Posterior dressing-aquacell dressing C/D/I with surrounding tissue intact, no focal edema or tracking erythema, no active d/c b/l UE momd teacher strength 5/5, 5/5 thumbs up and moving all extremities without limitation. B/L LE compartments soft, supple and non-tender with active dorsi/plantar flexion. Problem List - Problems (1) Cervical myelopathy Assessment/Plan: POD #1 Anterior and posterior cervical fusion doing well. 1) OOB with PT today 2) Maintain c-collar 23hr/day 3) DVT prophylaxis 4) Start diet-clears 5) FLOTATION TENDER per anesthesia 6) No pillow under head 7) position patient upright in bed or chair as much as tolerated. 8) Continue to trend labs, (Troponin I trending down) Evaluation and plan discussed with Dr Ravi Code(s): G95.9 - DISEASE OF SPINAL CORD, UNSPECIFIED
[2019-01-25] MEDS: HYDROmorphone *PCA* 10MG/50ML DISP.SYRIN PCA SCH (08:45)
[2019-01-25 08:52] LABS: ANION GAP 10 MMOL/L (8-16); BLOOD UREA NITROGEN 21 mg/dL (7-18); CALCIUM 8.1 mg/dL (8.5-10.1); CHLORIDE 101 mmol/L (98-107); CO2 24 mmol/L (21-32); CREATININE 1.5 mg/dL (0.55-1.3); POTASSIUM 4.4 mmol/L (3.5-5.1); SODIUM 135 mmol/L (136-145)
[2019-01-25 09:00] LABS: GLUCOSE,RANDOM 354 mg/dL (74-106)
--- NOTE | 2019-01-25 10:15 | PN ---
Progress Note, Physician Chief Complaint: patient seen and examined no distress pOD 1 - Current Medication List Current Medications: Active Medications Aspirin (Asa -) 81 mg PO DAILY [facility] Atorvastatin Calcium (Lipitor -) 20 mg PO HS [facility] Last Admin: 01/24/19 23:18 Dose: 20 mg Brimonidine Tartrate (Alphagan 0.2% -) 1 drop OU BID [facility] Last Admin: 01/24/19 23:09 Dose: 1 drop Cyclobenzaprine HCl (Flexeril -) 10 mg PO TID PRN PRN Reason: MUSCLE SPASMS Dexamethasone Sodium Phosphate (Decadron Injection -) 4 mg IVPUSH ONCE PRN PRN Reason: NAUSEA AND/OR VOMITING Dexamethasone Sodium Phosphate (Decadron Injection -) 8 mg IVPB Q6H [facility] Last Admin: 01/25/19 08:15 Dose: 8 mg Diphenhydramine HCl (Benadryl Injection -) 12.5 mg IVPUSH ONCE PRN PRN Reason: FOR ITCHING Furosemide (Lasix -) 20 mg PO DAILY [facility] Heparin Sodium (Porcine) (Heparin -) 5,000 unit SQ Q8H-IV [facility] Last Admin: 01/25/19 01:30 Dose: 5,000 unit Hydromorphone HCl (Dilaudid Commission Broker -) 10 mg BATCH MIXER BATCH MIXER [facility]; Protocol Stop: 01/31/19 08:35 Last Admin: 01/24/19 20:52 Dose: Not Given Sodium Chloride (Normal Saline -) 1,000 mls @ 75 mls/hr IV ASDIR [facility] Last Admin: 01/25/19 08:00 Dose: 75 mls/hr Cefazolin Sodium (Ancef 1 Gm Premixed Ivpb -) 1 gm in 50 mls @ 100 mls/hr IVPB Q8H [facility] Stop: 01/25/19 21:59 Last Admin: 01/25/19 03:17 Dose: 100 mls/hr Insulin Aspart (Novolog Vial Sliding Scale -) 1 vial SQ TIDAC [facility]; Protocol Last Admin: 01/25/19 06:36 Dose: 8 units Latanoprost (Xalatan 0.005% Eye Drops -) 1 drop OD HS [facility] Last Admin: 01/24/19 23:37 Dose: 1 drop Loratadine (Claritin -) 10 mg PO DAILY [facility] Losartan Potassium (Cozaar -) 50 mg PO DAILY [facility] Metoprolol Succinate (Toprol Xl -) 25 mg PO DAILY [facility] Ondansetron HCl (Zofran Injection) 4 mg IVPUSH Q4H PRN PRN Reason: NAUSEA AND/OR VOMITING Ondansetron HCl (Zofran Injection) 4 mg IVPUSH Q6H PRN PRN Reason: NAUSEA Pantoprazole Sodium (Protonix -) 20 mg PO DAILY [facility] Pramipexole Dihydrochloride (Mirapex -) 0.5 mg PO HS [facility] Last Admin: 01/24/19 23:10 Dose: 0.5 mg Promethazine HCl (Phenergan Injection -) 12.5 mg IVPB Q6H PRN PRN Reason: NAUSEA AND/OR VOMITING Sertraline HCl (Zoloft -) 50 mg PO DAILY [facility] Timolol Maleate (Timoptic 0.5%) 1 drop OU BID [facility] Last Admin: 01/24/19 23:11 Dose: 1 drop - Objective Vital Signs: Vital Signs Temperature 98.5 F 01/25/19 09:52 Pulse Rate 115 H 01/25/19 09:52 Respiratory Rate 16 01/25/19 09:52 Blood Pressure 144/99 01/25/19 09:52 O2 Sat by Pulse Oximetry (%) 100 01/24/19 22:00 Constitutional: Yes: Calm Neck: Yes: Other (neck collar) Cardiovascular: Yes: Regular Rate and Rhythm, S1, S2 Respiratory: Yes: CTA Bilaterally Gastrointestinal: Yes: Normal Bowel Sounds, Soft Edema: No Neurological: Yes: Alert, Oriented Labs: CBC, BMP 01/25/19 05:30 01/25/19 05:30 INR, PTT INR 1.02 (0.83-1.09) 01/24/19 07:50 Problem List - Problems (1) Cervical myelopathy Assessment/Plan: Note: Operative Date: 01/24/19 Pre-Operative Diagnosis: cervcial spondylotic myelopathy and degenerative kyphosis and spondylosis Operation: anterior C6 corpectomy with CAGE placement and plating. C2 thru C7 laminectomy with posterior fusion Surgeon: Lj Ravi Fitter Welder: Chiquis Pelaez Anesthesiologist/LAW EXAMINER: José Miguel Nunez Anesthesia: General Estimated Blood Loss (mls): 300 Drains, Volume Out (mls): 425 (sethi) Fluid Volume Replaced (mls): 2,100 Operative Report Dictated: Yes c collar upright position in bed dvt ppx clear diet line maintainer section pump Code(s): G95.9 - DISEASE OF SPINAL CORD, UNSPECIFIED (2) HLD (hyperlipidemia) Assessment/Plan: statin Code(s): E78.5 - HYPERLIPIDEMIA, UNSPECIFIED (3) HTN (hypertension) Assessment/Plan: cozaar and toprol Code(s): I10 - ESSENTIAL (PRIMARY) HYPERTENSION Qualifiers: Hypertension type: essential hypertension Qualified Code(s): I10 - Essential (primary) hypertension Assessment/Plan - Note: Operative Date: 01/24/19 Pre-Operative Diagnosis: cervcial spondylotic myelopathy and degenerative kyphosis and spondylosis Operation: anterior C6 corpectomy with CAGE placement and plating. C2 thru C7 laminectomy with posterior fusion Surgeon: Lj Ravi Fitter Welder: Chiquis Pelaez Anesthesiologist/LAW EXAMINER: José Miguel Nunez Anesthesia: General Estimated Blood Loss (mls): 300 Drains, Volume Out (mls): 425 (sethi) Fluid Volume Replaced (mls): 2,100 Operative Report Dictated: Yes
[2019-01-25] MEDS: ASPIRIN 81 MG CHEWABLE TABLETS PO SCH (10:40)
[2019-01-25] MEDS: metoPROLOL SUCCINATE 25 MG TAB.SR.24H (FP) PO SCH (10:40)
[2019-01-25] MEDS: PANTOPRAZOLE 20 MG TABLET (FP) PO SCH (10:40)
[2019-01-25] MEDS: LORATADINE 10 MG TABLET PO SCH (10:40)
[2019-01-25] MEDS: FUROSEMIDE 20 MG TABLET (FP) PO SCH (10:40)
[2019-01-25] MEDS: SERTRALINE HCL 50 MG TABLET (FP) PO SCH (10:40)
[2019-01-25] MEDS: LOSARTAN POTASSIUM 50 MG TABLET (FP) PO SCH (10:40)
--- NOTE | 2019-01-25 10:40 | EKG ---
Test Reason : Blood Pressure : / mmHG Vent. Rate : 115 BPM Atrial Rate : 115 BPM P-R Int : 174 ms QRS Dur : 078 ms QT Int : 342 ms P-R-T Axes : 024 -18 -06 degrees QTc Int : 473 ms SINUS TACHYCARDIA OTHERWISE NORMAL ECG WHEN COMPARED WITH ECG OF 11-MAY-2017 09:25, NO SIGNIFICANT CHANGE WAS FOUND Confirmed by KAYLEE MARCOS MD ([id number]) on 01/25/2019 10:40:12 AM Referred By: PAVEL BARNETT DR Confirmed By:KAYLEE MARCOS MD
[2019-01-25] MEDS: BRIMONIDINE TARTRATE 0.2% OPHTHALMIC 5 ML BOTTLE OU SCH ×2 (11:00→21:42)
[2019-01-25] MEDS: TIMOLOL 0.5% OPHTHALMIC SOL 5 ML BOTTLE OU SCH ×2 (11:00→21:42)
--- NOTE | 2019-01-25 12:50 | PN ---
Progress Note (short form) - Note Progress Note: POD1 s/p C2-7 corpectomy/decompression/fusion. Doing well - pain is well controlled. Will keep TANK CHARGER, as he does still use it occasionally. No anesthetic issues/complications
--- NOTE | 2019-01-25 13:16 | PN ---
Teaching Attending Note Name of Resident: Brianda Carpenter ATTENDING PHYSICIAN STATEMENT I saw and evaluated the patient. I reviewed the resident's note and discussed the case with the resident. I agree with the resident's findings and plan as documented. SUBJECTIVE: Pt seen and examined in the ICU. Pain adequately controlled. No shortness of breath or chest pain. No fevers or chills. OBJECTIVE: Vital Signs Period Temp Pulse Resp BP Sys/Sales Pulse Ox Last 24 Hr 98.1 F-102.2 F 97-132 6-21 125-168/35-113 47-100 Intake & Output 01/22/19 01/23/19 01/24/19 01/25/19 23:59 23:59 23:59 23:59 Intake Total 2200 1657 Output Total 3120 2160 Balance -920 -503 Weight 84.822 kg 85.304 kg Gen: NAD in cervical collar Heart: RRR Lung: decreased breath sounds at the bases Abd: soft, nontender Ext: no edema Drain serosanguinous CBC, BMP 01/25/19 05:30 01/25/19 05:30 Active Medications Aspirin (Asa -) 81 mg PO DAILY [facility] Last Admin: 01/25/19 10:40 Dose: 81 mg Atorvastatin Calcium (Lipitor -) 20 mg PO HS [facility] Last Admin: 01/24/19 23:18 Dose: 20 mg Brimonidine Tartrate (Alphagan 0.2% -) 1 drop OU BID [facility] Last Admin: 01/25/19 11:00 Dose: 1 drop Cyclobenzaprine HCl (Flexeril -) 10 mg PO TID PRN PRN Reason: MUSCLE SPASMS Dexamethasone Sodium Phosphate (Decadron Injection -) 4 mg IVPUSH ONCE PRN PRN Reason: NAUSEA AND/OR VOMITING Dexamethasone Sodium Phosphate (Decadron Injection -) 8 mg IVPB Q6H [facility] Last Admin: 01/25/19 08:15 Dose: 8 mg Diphenhydramine HCl (Benadryl Injection -) 12.5 mg IVPUSH ONCE PRN PRN Reason: FOR ITCHING Furosemide (Lasix -) 20 mg PO DAILY [facility] Last Admin: 01/25/19 10:40 Dose: 20 mg Heparin Sodium (Porcine) (Heparin -) 5,000 unit SQ Q8H-IV [facility] Last Admin: 01/25/19 10:41 Dose: 5,000 unit Hydromorphone HCl (Dilaudid Gluer -) 10 mg [employer]OO [employer] CO FOUNDER COO & CO FOUNDER [facility]; Protocol Stop: 01/31/19 08:35 Last Admin: 01/25/19 08:45 Dose: Not Given Sodium Chloride (Normal Saline -) 1,000 mls @ 75 mls/hr IV ASDIR [facility] Last Admin: 01/25/19 08:00 Dose: 75 mls/hr Cefazolin Sodium (Ancef 1 Gm Premixed Ivpb -) 1 gm in 50 mls @ 100 mls/hr IVPB Q8H [facility] Stop: 01/25/19 21:59 Last Admin: 01/25/19 11:03 Dose: 100 mls/hr Insulin Aspart (Novolog Vial Sliding Scale -) 1 vial SQ TIDAC [facility]; Protocol Last Admin: 01/25/19 11:47 Dose: 10 units Latanoprost (Xalatan 0.005% Eye Drops -) 1 drop OD HS [facility] Last Admin: 01/24/19 23:37 Dose: 1 drop Loratadine (Claritin -) 10 mg PO DAILY [facility] Last Admin: 01/25/19 10:40 Dose: 10 mg Losartan Potassium (Cozaar -) 50 mg PO DAILY [facility] Last Admin: 01/25/19 10:40 Dose: 50 mg Metoprolol Succinate (Toprol Xl -) 25 mg PO DAILY [facility] Last Admin: 01/25/19 10:40 Dose: 25 mg Ondansetron HCl (Zofran Injection) 4 mg IVPUSH Q4H PRN PRN Reason: NAUSEA AND/OR VOMITING Ondansetron HCl (Zofran Injection) 4 mg IVPUSH Q6H PRN PRN Reason: NAUSEA Pantoprazole Sodium (Protonix -) 20 mg PO DAILY [facility] Last Admin: 01/25/19 10:40 Dose: 20 mg Pramipexole Dihydrochloride (Mirapex -) 0.5 mg PO HS [facility] Last Admin: 01/24/19 23:10 Dose: 0.5 mg Promethazine HCl (Phenergan Injection -) 12.5 mg IVPB Q6H PRN PRN Reason: NAUSEA AND/OR VOMITING Sertraline HCl (Zoloft -) 50 mg PO DAILY [facility] Last Admin: 01/25/19 10:40 Dose: 50 mg Timolol Maleate (Timoptic 0.5%) 1 drop OU BID [facility] Last Admin: 01/25/19 11:00 Dose: 1 drop ASSESSMENT AND PLAN: Cervical Myelopathy/Kyphosis/Spondylosis s/p Anterior C6 Corpectomy/CAGE placement/C2-C7 Laminectomy with Posterior Fusion HTN DM Hyperlipidemia - pain control - incentive spirometry - PO when flatus - bowel regimen - d/c sethi when OOB - monitor drain output - DVT prophylaxis - can monitor on floor when ok with surgery
--- NOTE | 2019-01-25 14:59 | CON.ID ---
Consult Consult Specialty:: infectious diseases Referred by:: Reason for Consultation:: post,reintubation, - History of Present Illness Chief Complaint: hoarse voice History of Present Illness: 67 yo M with PMhx of HTN, HLD, DM, and two prior Lumbar surgeries who presents with signs and symptoms of progressive Cervical Spondylotic Myelopathy. MRI demonstrates soft disc herniations at C56 & C67 as well as degenerative kyphosis and spondylosis with hypertrophic posterior longitudinal ligament and osteophytes as well as disc bulges at all levels. The patient has a congenitally narrow spinal canal and this results in effacement of the Ventral and Dorsal CSF spaces and deformation of the Cervical spinal cord. Denies CP,OWEN, SOB, palpitations, abdominal pain, nausea, vomiting, fever or chills patient was seen by neurosurgery and patient underwent anterior C6 corpectomy with CAGE placement and plating. C2 thru C7 laminectomy with posterior fusion post surgery patient was extubated and then had to be reintubated because of resp failure and worry was that if the patient developed aspiration and i was called to evaluate the patient currently the patient looks stable and has no complaints,in cervical collar with marita drain in place - History Source History Provided By: Patient Limitations to Obtaining History: No Limitations - Past Medical History Cardio/Vascular: Yes: Aneurysm, HTN, Hyperlipdemia Gastrointestinal: Yes: GERD Psych: Yes: Depression Musculoskeletal: Yes: Other (right foot drop) Endocrine: Yes: Diabetes Mellitus - Past Surgical History Past Surgical History: Yes: Laminectomy - Alcohol/Substance Use Hx Alcohol Use: No - Smoking History Smoking history: Never smoked Have you smoked in the past 12 months: No If you are a former smoker, when did you quit?: 2004 - Social History Usual Living Arrangement: With Spouse ADL: Independent History of Recent Travel: No Home Medications - Allergies Allergies/Adverse Reactions: Allergies Allergy/AdvReac Type Severity Reaction Status Date / Time codeine Allergy Intermediate "stomach Verified 01/24/19 07:54 hurts and itchy" morphine Allergy Unknown "itchy" Verified 01/24/19 07:54 - Home Medications Home Medications: Ambulatory Orders Bimatoprost [Lumigan] 2.5 ml OD HS 12/13/15 Cyclobenzaprine HCl [Flexeril -] 10 mg PO TID PRN 12/13/15 Metoprolol Succinate [Toprol XL -] 1 tab PO DAILY 12/13/15 Atorvastatin Ca [Lipitor] 20 mg PO HS tablet 12/26/15 Aspirin [ASA -] 81 mg PO DAILY 05/06/17 Insulin (Novolog 70/30) [Novolog Mix 70/30 Flexpen -] 30 units SQ BID 05/06/17 Sertraline HCl 50 mg PO DAILY 05/06/17 Brimonidine Tartrate/Timolol [Combigan Eye Drops] 5 ml OD BID 01/23/19 Cetirizine HCl [Zyrtec -] 10 mg PO DAILY 01/23/19 Dulaglutide [Trulicity] 1.5 mg SQ WEEKLY 01/23/19 Furosemide 20 mg PO DAILY 01/23/19 Losartan Potassium 50 mg PO DAILY 01/23/19 Omeprazole 20 mg PO DAILY 01/23/19 Pramipexole Di-HCl [Mirapex] 0.5 mg PO HS 01/23/19 metFORMIN HCL [Glucophage -] 500 mg PO BID 01/23/19 Review of Systems - Review of Systems Constitutional: reports: No Symptoms Eyes: reports: No Symptoms HENT: reports: No Symptoms Neck: reports: No Symptoms Cardiovascular: reports: No Symptoms Respiratory: reports: No Symptoms Gastrointestinal: reports: No Symptoms Musculoskeletal: reports: Back Pain Integumentary: reports: No Symptoms Neurological: reports: No Symptoms Endocrine: reports: No Symptoms Hematology/Lymphatic: reports: No Symptoms Psychiatric: reports: No Symptoms Physical Exam Vital Signs: Vital Signs Temperature 98.3 F 01/25/19 14:55 Pulse Rate 108 H 01/25/19 14:55 Respiratory Rate 16 01/25/19 14:55 Blood Pressure 172/92 H 01/25/19 14:55 O2 Sat by Pulse Oximetry (%) 98 01/25/19 09:00 Constitutional: Yes: No Distress, Calm, Obese HENT: Yes: Atraumatic, Other (hard cervical collar) Neck: Yes: Other (cervical collar) Cardiovascular: Yes: Regular Rate and Rhythm Respiratory: Yes: Regular, CTA Bilaterally Gastrointestinal: Yes: Normal Bowel Sounds, Soft Musculoskeletal: Yes: WNL Extremities: Yes: WNL Wound/Incision: Yes: Other (cervical collar,marita drain in place) Neurological: Yes: Alert, Oriented Psychiatric: Yes: Alert, Oriented Labs: CBC, BMP 01/25/19 05:30 01/25/19 05:30 Imaging - Results Cat Scan: Report Reviewed, Image Reviewed Assessment/Plan Problem List - Problems (1) Cervical myelopathy Code(s): G95.9 - DISEASE OF SPINAL CORD, UNSPECIFIED (2) HLD (hyperlipidemia) Assessment/Plan: statin Code(s): E78.5 - HYPERLIPIDEMIA, UNSPECIFIED (3) HTN (hypertension) Assessment/Plan: cozaar and toprol Code(s): I10 - ESSENTIAL (PRIMARY) HYPERTENSION Qualifiers: Hypertension type: essential hypertension Qualified Code(s): I10 - Essential (primary) hypertension Assessment/Plan continue current mgmt continue abx for the time being await for the drain to be pulled out cervical collar rest as per the team and icu cc 40 min
[2019-01-25] MEDS ORDERED: PT OWN MED DRAWER 7, Y5N ONE (21:38)
[2019-01-25] MEDS: PRAMIPEXOLE DIHYDROCHLORIDE 0.5 MG TABLET PO SCH (21:41)
[2019-01-25] MEDS: ATORVASTATIN CA 20 MG TABLET (FP) PO SCH (21:42)
[2019-01-25] MEDS: LATANOPROST 0.005% OPHTH SOLN 2.5ML BOTTLE OD SCH (21:43)
[2019-01-26] MEDS: DEXAMETHASONE SOD PHOSPHATE 4 MG/1 ML VIAL IVPB SCH ×3 (02:20→17:24)
[2019-01-26] MEDS: HEPARIN NA (PORCINE) 5,000 UNITS/ML 1ML VIAL SQ SCH ×3 (02:21→17:24)
[2019-01-26] MEDS: INSULIN SLIDING SCALE (NOVOLOG) 1 VIAL SQ SCH ×3 (06:06→17:23)
--- NOTE | 2019-01-26 08:17 | PN ---
Progress Note (short form) - Note Progress Note: Surgery POD#2 anterior C6 corpectomy with CAGE placement and plating. C2 thru C7 laminectomy with posterior fusion. Patient feels well and no acute events overnight. His pain is controlled with BUCKET PUSHER and he denies any CP, SOB, N/V, fever , chills or headaches. Vital Signs Temp 98.7 F 01/26/19 07:00 Pulse 104 H 01/26/19 07:00 Resp 19 01/26/19 07:00 BP 160/97 01/26/19 07:00 Pulse Ox 98 01/25/19 22:00 Intake & Output 01/25/19 01/25/19 01/26/19 11:59 23:59 11:59 Intake Total 1407 2155 725 Output Total 2140 2450 1290 Balance -733 -295 -565 Weight 188 lb 1 oz 184 lb 6 oz Intake: IV 1157 1200 525 Normal Saline - 1,000 ml 1157 1200 525 @ 75 mls/hr IV ASDIR [facility] Rx#:[id number] IVPB 200 200 Oral 50 755 200 Output: Drainage 140 100 90 Anterior 40 20 Posterior 100 80 90 Urine 2000 2350 1200 Kumar 2000 2350 1200 Other: Voiding Method Indwelling Catheter Indwelling Catheter Bowel Movement Yes # Bowel Movements 1 Weight Measurement Method Built in Bedscale Built in Bedscale PE A&Ox3, NAD Unlabored resp on 2L NC HEENT: NC/AT,no facial droop, tongue midline on protrusion. anterior incision, dressing C/D/I with surrounding tissue intact, mild edema with no evidence of tracking erythema, Posterior dressing-aquacell dressing C/D/I with surrounding tissue intact, no focal edema or tracking erythema, no active d/c, posterior drain to bile bag with SS d/c b/l UE research technician strength 5/5, 5/5 thumbs up and moving all extremities without limitation. B/L LE compartments soft, supple and non-tender with active dorsi/plantar flexion. Problem List - Problems (1) Cervical myelopathy Assessment/Plan: POD #2 Anterior and posterior cervical fusion doing well. 1) OOB with PT today 2) Maintain c-collar 23hr/day 3) DVT prophylaxis 4) advance diet 5) BUCKET PUSHER per anesthesia, will likely wean to oral today vs tomorrow 6) No pillow under head 7) position patient upright in bed or chair as much as tolerated. 8) Continue to trend labs, (Troponin I trending down) 9) step down to floor today Evaluation and plan discussed with Dr Ravi Code(s): G95.9 - DISEASE OF SPINAL CORD, UNSPECIFIED
[2019-01-26 08:31] LABS: BASO % 0.1 % (0-2.0); HEMATOCRIT 35.1 % (35.4-49); HEMOGLOBIN 11.6 GM/dL (11.7-16.9); LYMPH % 5.7 % (8-40); MCH 34.1 pg (25.7-33.7); MEAN CELL VOLUME 103.1 fl (80-96); MEAN PLT VOLUME 7.8 fl (7.5-11.1); MONO % 5.1 % (3.8-10.2); NEUT % 89.1 % (42.8-82.8); PLATELET COUNT 182 K/MM3 (134-434); RDW 14.9 % (11.9-15.9); WHITE BLOOD COUNT 9.6 K/mm3 (4.0-10.0)
[2019-01-26] MEDS: HYDROmorphone *PCA* 10MG/50ML DISP.SYRIN PCA SCH ×3 (08:45→16:06)
--- NOTE | 2019-01-26 08:58 | PN ---
Physical Exam: SUBJECTIVE: Patient seen and examined at bedside. No acute events overnight. Pt seen eating breakfast this morning with no complaints. Pain well controlled with meds. Denies cp, sob, abd pain, n/v. OBJECTIVE: Vital Signs Period Temp Pulse Resp BP Sys/Sales Pulse Ox Last 24 Hr 98.0 F-98.7 F 95-116 11-19 121-172/56-107 98-98 GENERAL: Middle aged male, Awake, alert, and fully oriented, in no acute distress. Sethi in place. BILL drain in place. EYES: EOM intact, no pallor or icterus. EARS, NOSE, THROAT: Ears normal. Moist mucous membranes. NECK: Supple. LUNGS: B/L lungs clear, no added sounds. HEART: Regular rate and rhythm, normal S1 and S2 without murmur. ABDOMEN: Soft, nontender, no organomegaly, +BS MUSCULOSKELETAL: Pain at the surgical site. UPPER EXTREMITIES: No peripheral edema. LOWER EXTREMITIES: No peripheral edema. NEUROLOGICAL: No facial droop. Normal speech. Gait not observed. PSYCHIATRIC: Cooperative. Good eye contact. Appropriate mood and affect. SKIN: Warm, dry, normal turgor, no rashes or lesions noted. Laboratory Results - last 24 hr 01/25/19 01/25/19 01/25/19 05:30 11:43 17:36 WBC RBC Hgb Hct MCV MCH MCHC RDW Plt Count MPV Absolute Neuts (auto) Neutrophils % Lymphocytes % Monocytes % Eosinophils % Basophils % Nucleated RBC % POC Glucometer 359 310 Random Glucose 354 H* 01/26/19 01/26/19 06:05 07:55 WBC 9.6 RBC 3.40 L Hgb 11.6 L Hct 35.1 L MCV 103.1 H MCH 34.1 H MCHC 33.0 RDW 14.9 Plt Count 182 MPV 7.8 Absolute Neuts (auto) 8.5 H Neutrophils % 89.1 H Lymphocytes % 5.7 L D Monocytes % 5.1 D Eosinophils % 0.0 D Basophils % 0.1 Nucleated RBC % 0 POC Glucometer 295 Random Glucose Active Medications Aspirin (Asa -) 81 mg PO DAILY [facility] Last Admin: 01/26/19 09:25 Dose: 81 mg Atorvastatin Calcium (Lipitor -) 20 mg PO HS [facility] Last Admin: 01/25/19 21:42 Dose: 20 mg Brimonidine Tartrate (Alphagan 0.2% -) 1 drop OU BID [facility] Last Admin: 01/26/19 09:35 Dose: 1 drop Cyclobenzaprine HCl (Flexeril -) 10 mg PO TID PRN PRN Reason: MUSCLE SPASMS Last Admin: 01/25/19 21:42 Dose: 10 mg Dexamethasone Sodium Phosphate (Decadron Injection -) 8 mg IVPB Q8H-IV [facility] Last Admin: 01/26/19 09:21 Dose: 8 mg Diphenhydramine HCl (Benadryl Injection -) 12.5 mg IVPUSH ONCE PRN PRN Reason: FOR ITCHING Furosemide (Lasix -) 20 mg PO DAILY [facility] Last Admin: 01/26/19 10:25 Dose: 20 mg Heparin Sodium (Porcine) (Heparin -) 5,000 unit SQ Q8H-IV [facility] Last Admin: 01/26/19 09:23 Dose: 5,000 unit Hydromorphone HCl (Dilaudid Resistance Machine Welder Setter -) 10 mg FLORIST DESIGNER FLORIST DESIGNER [facility]; Protocol Stop: 01/31/19 08:35 Last Admin: 01/26/19 09:29 Dose: 10 mg Sodium Chloride (Normal Saline -) 1,000 mls @ 75 mls/hr IV ASDIR [facility] Last Admin: 01/25/19 17:32 Dose: Not Given Cefazolin Sodium (Ancef 1 Gm Premixed Ivpb -) 1 gm in 50 mls @ 100 mls/hr IVPB Q8H-IV [facility] Last Admin: 01/26/19 09:44 Dose: 100 mls/hr Insulin Aspart (Novolog Vial Sliding Scale -) 1 vial SQ TIDAC [facility]; Protocol Last Admin: 01/26/19 11:25 Dose: 10 units Latanoprost (Xalatan 0.005% Eye Drops -) 1 drop OD HS [facility] Last Admin: 01/25/19 21:43 Dose: 1 drop Loratadine (Claritin -) 10 mg PO DAILY [facility] Last Admin: 01/26/19 09:25 Dose: 10 mg Losartan Potassium (Cozaar -) 50 mg PO DAILY [facility] Last Admin: 01/26/19 09:17 Dose: 50 mg Metoprolol Succinate (Toprol Xl -) 25 mg PO DAILY [facility] Last Admin: 01/26/19 09:17 Dose: 25 mg Ondansetron HCl (Zofran Injection) 4 mg IVPUSH Q4H PRN PRN Reason: NAUSEA AND/OR VOMITING Ondansetron HCl (Zofran Injection) 4 mg IVPUSH Q6H PRN PRN Reason: NAUSEA Pantoprazole Sodium (Protonix -) 20 mg PO DAILY [facility] Last Admin: 01/26/19 09:17 Dose: 20 mg Pramipexole Dihydrochloride (Mirapex -) 0.5 mg PO HS [facility] Last Admin: 01/25/19 21:41 Dose: 0.5 mg Promethazine HCl (Phenergan Injection -) 12.5 mg IVPB Q6H PRN PRN Reason: NAUSEA AND/OR VOMITING Sertraline HCl (Zoloft -) 50 mg PO DAILY [facility] Last Admin: 01/26/19 09:17 Dose: 50 mg Timolol Maleate (Timoptic 0.5%) 1 drop OU BID [facility] Last Admin: 01/26/19 09:35 Dose: 1 drop ASSESSMENT/PLAN: 68M with significant pmhx of HTN, HLD, DM, depression, GERD, lumbar laminectomies presented to the hospital for an elective surgery for progressive Cervical Spondylotic Myelopathy. NEURO #Cervical spondylotic myelopathy s/p Anterior C6 corpectomy with CAGE placement and plating. C2 thru C7 laminectomy with posterior fusion, POD 2 -d/c FLORIST DESIGNER per anesthesia; transition to PO pain meds -d/c sethi once OOB -OOB to chair/PT -IS -Abx per surg team -monitor drain output CV #Elevated troponin -trending down #Hypertension-controlled -Continue Losartan 50mg PO daily #Hyperlipidemia -Continue statin when able FEN -PO hydration -replete lytes PRN -Diabetic diet PROPHYLAXIS -Heparin 5000 IU sq TID -Protonix 20 mg Daily Dispo -Full Code -transfer to med-surg Dispo: We will continue to follow the patient. Thank you for this consultative opportunity. Visit type - Emergency Visit Emergency Visit: Yes ED Registration Date: 01/24/19 Care time: The patient presented to the Emergency Department on the above date and was hospitalized for further evaluation of their emergent condition. - New Patient This patient is new to me today: No - Critical Care Critical Care patient: Yes Total Critical Care Time (in minutes): 35 Critical Care Statement: The care of this patient involved high complexity decision making to prevent further life threatening deterioration of the patient 's condition and/or to evaluate & treat vital organ system(s) failure or risk of failure.
[2019-01-26 09:00] LABS: ALBUMIN 3.2 g/dl (3.4-5.0); ALK PHOS 74 U/L (45-117); ANION GAP 6 MMOL/L (8-16); BILIRUBIN,TOTAL 0.8 mg/dL (0.2-1); BLOOD UREA NITROGEN 21 mg/dL (7-18); CALCIUM 8.3 mg/dL (8.5-10.1); CHLORIDE 103 mmol/L (98-107); CO2 27 mmol/L (21-32); GLUCOSE,RANDOM 276 mg/dL (74-106); MAGNESIUM 2.3 mg/dL (1.8-2.4); POTASSIUM 3.7 mmol/L (3.5-5.1); SGOT/AST 36 U/L (15-37); SGPT/ALT 36 U/L (13-61); SODIUM 136 mmol/L (136-145)
[2019-01-26] MEDS: metoPROLOL SUCCINATE 25 MG TAB.SR.24H (FP) PO SCH (09:17)
[2019-01-26] MEDS: LOSARTAN POTASSIUM 50 MG TABLET (FP) PO SCH (09:17)
[2019-01-26] MEDS: SERTRALINE HCL 50 MG TABLET (FP) PO SCH (09:17)
[2019-01-26] MEDS: PANTOPRAZOLE 20 MG TABLET (FP) PO SCH (09:17)
[2019-01-26] MEDS: ASPIRIN 81 MG CHEWABLE TABLETS PO SCH (09:25)
[2019-01-26] MEDS: LORATADINE 10 MG TABLET PO SCH (09:25)
[2019-01-26] MEDS ORDERED: HYDROmorphone *PCA* 10MG/50ML DISP.SYRIN PCA ONE (09:28)
[2019-01-26] MEDS: TIMOLOL 0.5% OPHTHALMIC SOL 5 ML BOTTLE OU SCH ×2 (09:35→22:33)
[2019-01-26] MEDS: BRIMONIDINE TARTRATE 0.2% OPHTHALMIC 5 ML BOTTLE OU SCH ×2 (09:35→22:33)
[2019-01-26] MEDS ORDERED: DEXAMETHASONE SOD PHOSPHATE 4 MG/1 ML VIAL IVPB SCH (10:00)
[2019-01-26] MEDS ORDERED: CEFAZOLIN 1 GM/D5W 1 GM/50 ML BAG IVPB SCH (10:00)
--- NOTE | 2019-01-26 10:10 | PN ---
Progress Note, Physician Chief Complaint: AWAKE ALERT EVENTS AND NOTES REVIEWED + ASKEW WITH APPROX 100CC URINE OUTPUT - Current Medication List Current Medications: Active Medications Aspirin (Asa -) 81 mg PO DAILY [facility] Last Admin: 01/26/19 09:25 Dose: 81 mg Atorvastatin Calcium (Lipitor -) 20 mg PO HS [facility] Last Admin: 01/25/19 21:42 Dose: 20 mg Brimonidine Tartrate (Alphagan 0.2% -) 1 drop OU BID [facility] Last Admin: 01/26/19 09:35 Dose: 1 drop Cyclobenzaprine HCl (Flexeril -) 10 mg PO TID PRN PRN Reason: MUSCLE SPASMS Last Admin: 01/25/19 21:42 Dose: 10 mg Dexamethasone Sodium Phosphate (Decadron Injection -) 8 mg IVPB Q8H-IV [facility] Last Admin: 01/26/19 09:21 Dose: 8 mg Diphenhydramine HCl (Benadryl Injection -) 12.5 mg IVPUSH ONCE PRN PRN Reason: FOR ITCHING Furosemide (Lasix -) 20 mg PO DAILY [facility] Last Admin: 01/25/19 10:40 Dose: 20 mg Heparin Sodium (Porcine) (Heparin -) 5,000 unit SQ Q8H-IV [facility] Last Admin: 01/26/19 09:23 Dose: 5,000 unit Hydromorphone HCl (Dilaudid Forest Botany Instructor -) 10 mg VARNISHING UNIT TOOL SETTER VARNISHING UNIT TOOL SETTER [facility]; Protocol Stop: 01/31/19 08:35 Last Admin: 01/26/19 09:29 Dose: 10 mg Sodium Chloride (Normal Saline -) 1,000 mls @ 75 mls/hr IV ASDIR [facility] Last Admin: 01/25/19 17:32 Dose: Not Given Cefazolin Sodium (Ancef 1 Gm Premixed Ivpb -) 1 gm in 50 mls @ 100 mls/hr IVPB Q8H-IV [facility] Last Admin: 01/26/19 09:44 Dose: 100 mls/hr Insulin Aspart (Novolog Vial Sliding Scale -) 1 vial SQ TIDAC [facility]; Protocol Last Admin: 01/26/19 06:06 Dose: 6 units Latanoprost (Xalatan 0.005% Eye Drops -) 1 drop OD HS [facility] Last Admin: 01/25/19 21:43 Dose: 1 drop Loratadine (Claritin -) 10 mg PO DAILY [facility] Last Admin: 01/26/19 09:25 Dose: 10 mg Losartan Potassium (Cozaar -) 50 mg PO DAILY [facility] Last Admin: 01/26/19 09:17 Dose: 50 mg Metoprolol Succinate (Toprol Xl -) 25 mg PO DAILY [facility] Last Admin: 01/26/19 09:17 Dose: 25 mg Ondansetron HCl (Zofran Injection) 4 mg IVPUSH Q4H PRN PRN Reason: NAUSEA AND/OR VOMITING Ondansetron HCl (Zofran Injection) 4 mg IVPUSH Q6H PRN PRN Reason: NAUSEA Pantoprazole Sodium (Protonix -) 20 mg PO DAILY [facility] Last Admin: 01/26/19 09:17 Dose: 20 mg Pramipexole Dihydrochloride (Mirapex -) 0.5 mg PO HS [facility] Last Admin: 01/25/19 21:41 Dose: 0.5 mg Promethazine HCl (Phenergan Injection -) 12.5 mg IVPB Q6H PRN PRN Reason: NAUSEA AND/OR VOMITING Sertraline HCl (Zoloft -) 50 mg PO DAILY [facility] Last Admin: 01/26/19 09:17 Dose: 50 mg Timolol Maleate (Timoptic 0.5%) 1 drop OU BID [facility] Last Admin: 01/26/19 09:35 Dose: 1 drop - Objective Vital Signs: Vital Signs Temperature 98.7 F 01/26/19 07:00 Pulse Rate 111 H 01/26/19 09:29 Respiratory Rate 13 01/26/19 09:29 Blood Pressure 133/79 01/26/19 09:29 O2 Sat by Pulse Oximetry (%) 98 01/25/19 22:00 Constitutional: Yes: Mild Distress Eyes: Yes: WNL HENT: Yes: WNL Neck: Yes: WNL (COLLAR), Other Cardiovascular: Yes: Regular Rate and Rhythm Respiratory: Yes: Diminished, On Nasal O2 Gastrointestinal: Yes: Soft Genitourinary: Yes: Askew Present Musculoskeletal: Yes: Muscle Weakness Edema: No Integumentary: Yes: Other Wound/Incision: Yes: Dressing Dry and Intact Neurological: Yes: Pre-Existing Deficit ...Motor Strength: LLE, RLE Psychiatric: Yes: WNL Labs: CBC, BMP 01/26/19 07:55 01/26/19 07:55 INR, PTT INR 1.02 (0.83-1.09) 01/24/19 07:50 Problem List - Problems (1) Cervical myelopathy Code(s): G95.9 - DISEASE OF SPINAL CORD, UNSPECIFIED (2) DJD (degenerative joint disease) Code(s): M19.90 - UNSPECIFIED OSTEOARTHRITIS, UNSPECIFIED SITE Qualifiers: Osteoarthritis location: spine Spinal region: lumbar Spinal osteoarthritis complication: with myelopathy Qualified Code(s): M47.16 - Other spondylosis with myelopathy, lumbar region (3) Diabetes Code(s): E11.9 - TYPE 2 DIABETES MELLITUS WITHOUT COMPLICATIONS Qualifiers: Diabetes mellitus type: type 2 Diabetes mellitus exterminator helper termite insulin use: with care home use Diabetes mellitus complication status: with unspecified complications Qualified Code(s): E11.8 - Type 2 diabetes mellitus with unspecified complications; Z79.4 - watermelon inspector (current) use of insulin (4) GERD (gastroesophageal reflux disease) Code(s): K21.9 - GASTRO-ESOPHAGEAL REFLUX DISEASE WITHOUT ESOPHAGITIS Qualifiers: Esophagitis presence: without esophagitis Qualified Code(s): K21.9 - Gastro -esophageal reflux disease without esophagitis (5) HLD (hyperlipidemia) Code(s): E78.5 - HYPERLIPIDEMIA, UNSPECIFIED (6) HTN (hypertension) Code(s): I10 - ESSENTIAL (PRIMARY) HYPERTENSION Qualifiers: Hypertension type: essential hypertension Qualified Code(s): I10 - Essential (primary) hypertension (7) History of lumbar fusion Code(s): Z98.1 - ARTHRODESIS STATUS (8) Thoracic aortic aneurysm Code(s): I71.2 - THORACIC AORTIC ANEURYSM, WITHOUT RUPTURE Assessment/Plan TAPERING DECADRON IV S/P EXTUBATION WITH PHARYNGEAL EDEMA SWALLOWING AND BREATHING WITHOUT DIFFICULTY POST OP CERVICAL CORPECTOMY WITH CERVICAL CAGE C2-C7 PPI AND DVT PROPHYLAXIS CONTINUED IV CEFAZOLIN CONT INCENTIVE SPIROMETRY OOB TO CHAIR WITH PT WHEN CLEARED BY NEUROLOGY
[2019-01-26] MEDS: FUROSEMIDE 20 MG TABLET (FP) PO SCH (10:25)
--- NOTE | 2019-01-26 11:03 | PN ---
Progress Note (short form) - Note Progress Note: Pt seen doing well -- reports improvement in pain. Denies puritis, denies n/v tolerating po, ambulating well recommend d/c PROCESS ANALYST and transition to orals. Yonny Greene M.D.
--- NOTE | 2019-01-26 12:12 | PN ---
Teaching Attending Note Name of Resident: Brianda Carpenter ATTENDING PHYSICIAN STATEMENT I saw and evaluated the patient. I reviewed the resident's note and discussed the case with the resident. I agree with the resident's findings and plan as documented. SUBJECTIVE: Patient seen and examined in the ICU. Reports pain is adequately controlled. No shortness of breath or chest pain. No fevers or chills. OBJECTIVE: Intake & Output 01/23/19 01/24/19 01/25/19 01/26/19 23:59 23:59 23:59 23:59 Intake Total 2200 3562 975 Output Total 3120 4590 1290 Balance -920 -1028 -315 Weight 187 lb 188 lb 1 oz 184 lb 6 oz Last Vital Signs Temp Pulse Resp BP Pulse Ox 98.6 F 109 H 14 128/106 H 98 01/26/19 10:15 01/26/19 11:29 01/26/19 11:29 01/26/19 11:29 01/26/19 08:00 Active Medications Aspirin (Asa -) 81 mg PO DAILY [facility] Last Admin: 01/26/19 09:25 Dose: 81 mg Atorvastatin Calcium (Lipitor -) 20 mg PO HS [facility] Last Admin: 01/25/19 21:42 Dose: 20 mg Brimonidine Tartrate (Alphagan 0.2% -) 1 drop OU BID [facility] Last Admin: 01/26/19 09:35 Dose: 1 drop Cyclobenzaprine HCl (Flexeril -) 10 mg PO TID PRN PRN Reason: MUSCLE SPASMS Last Admin: 01/25/19 21:42 Dose: 10 mg Dexamethasone Sodium Phosphate (Decadron Injection -) 8 mg IVPB Q8H-IV [facility] Last Admin: 01/26/19 09:21 Dose: 8 mg Diphenhydramine HCl (Benadryl Injection -) 12.5 mg IVPUSH ONCE PRN PRN Reason: FOR ITCHING Furosemide (Lasix -) 20 mg PO DAILY [facility] Last Admin: 01/26/19 10:25 Dose: 20 mg Heparin Sodium (Porcine) (Heparin -) 5,000 unit SQ Q8H-IV [facility] Last Admin: 01/26/19 09:23 Dose: 5,000 unit Hydromorphone HCl (Dilaudid Washing Machine Mechanic -) 10 mg SATELLITE PROJECT SITE MONITOR SATELLITE PROJECT SITE MONITOR [facility]; Protocol Stop: 01/31/19 08:35 Last Admin: 01/26/19 09:29 Dose: 10 mg Sodium Chloride (Normal Saline -) 1,000 mls @ 75 mls/hr IV ASDIR [facility] Last Admin: 01/25/19 17:32 Dose: Not Given Cefazolin Sodium (Ancef 1 Gm Premixed Ivpb -) 1 gm in 50 mls @ 100 mls/hr IVPB Q8H-IV [facility] Last Admin: 01/26/19 09:44 Dose: 100 mls/hr Insulin Aspart (Novolog Vial Sliding Scale -) 1 vial SQ TIDAC [facility]; Protocol Last Admin: 01/26/19 11:25 Dose: 10 units Latanoprost (Xalatan 0.005% Eye Drops -) 1 drop OD HS [facility] Last Admin: 01/25/19 21:43 Dose: 1 drop Loratadine (Claritin -) 10 mg PO DAILY [facility] Last Admin: 01/26/19 09:25 Dose: 10 mg Losartan Potassium (Cozaar -) 50 mg PO DAILY [facility] Last Admin: 01/26/19 09:17 Dose: 50 mg Metoprolol Succinate (Toprol Xl -) 25 mg PO DAILY [facility] Last Admin: 01/26/19 09:17 Dose: 25 mg Ondansetron HCl (Zofran Injection) 4 mg IVPUSH Q4H PRN PRN Reason: NAUSEA AND/OR VOMITING Ondansetron HCl (Zofran Injection) 4 mg IVPUSH Q6H PRN PRN Reason: NAUSEA Pantoprazole Sodium (Protonix -) 20 mg PO DAILY [facility] Last Admin: 01/26/19 09:17 Dose: 20 mg Pramipexole Dihydrochloride (Mirapex -) 0.5 mg PO [facility] Last Admin: 01/25/19 21:41 Dose: 0.5 mg Promethazine HCl (Phenergan Injection -) 12.5 mg IVPB Q6H PRN PRN Reason: NAUSEA AND/OR VOMITING Sertraline HCl (Zoloft -) 50 mg PO DAILY [facility] Last Admin: 01/26/19 09:17 Dose: 50 mg Timolol Maleate (Timoptic 0.5%) 1 drop OU BID [facility] Last Admin: 01/26/19 09:35 Dose: 1 drop Gen: Awake and alert in NAD in cervical collar Heart: RRR Lung: decreased breath sounds at the bases Abd: soft, nontender Ext: no edema Drain: serosanguinous Laboratory Results - last 24 hr 01/25/19 01/26/19 01/26/19 17:36 06:05 07:55 WBC 9.6 RBC 3.40 L Hgb 11.6 L Hct 35.1 L MCV 103.1 H MCH 34.1 H MCHC 33.0 RDW 14.9 Plt Count 182 MPV 7.8 Absolute Neuts (auto) 8.5 H Neutrophils % 89.1 H Lymphocytes % 5.7 L D Monocytes % 5.1 D Eosinophils % 0.0 D Basophils % 0.1 Nucleated RBC % 0 Sodium Potassium Chloride Carbon Dioxide Anion Gap BUN Creatinine Creat Clearance w eGFR POC Glucometer 310 295 Random Glucose Calcium Phosphorus Magnesium Total Bilirubin AST ALT Alkaline Phosphatase Total Protein Albumin 01/26/19 01/26/19 07:55 11:01 WBC RBC Hgb Hct MCV MCH MCHC RDW Plt Count MPV Absolute Neuts (auto) Neutrophils % Lymphocytes % Monocytes % Eosinophils % Basophils % Nucleated RBC % Sodium 136 Potassium 3.7 Chloride 103 Carbon Dioxide 27 Anion Gap 6 L BUN 21 H Creatinine 1.0 Creat Clearance w eGFR 74.31 POC Glucometer 360 Random Glucose 276 H Calcium 8.3 L Phosphorus 2.0 L Magnesium 2.3 Total Bilirubin 0.8 AST 36 ALT 36 Alkaline Phosphatase 74 Total Protein 7.0 Albumin 3.2 L ASSESSMENT AND PLAN: Cervical Myelopathy/Kyphosis/Spondylosis POD #2 Anterior C6 Corpectomy/CAGE placement/C2-C7 Laminectomy with Posterior Fusion HTN DM Hyperlipidemia - pain control - incentive spirometry - PO as tolerated - bowel regimen - D/C sethi when OOB - monitor drain output - DVT prophylaxis - can monitor on floor when ok with surgery Dr Orozco
[2019-01-26 13:29] VITALS: BMI 30.6
--- NOTE | 2019-01-26 14:21 | PN ---
Progress Note, Physician History of Present Illness: stable doing well no new issues - Current Medication List Current Medications: Active Medications Aspirin (Asa -) 81 mg PO DAILY [facility] Last Admin: 01/26/19 09:25 Dose: 81 mg Atorvastatin Calcium (Lipitor -) 20 mg PO HS [facility] Last Admin: 01/25/19 21:42 Dose: 20 mg Brimonidine Tartrate (Alphagan 0.2% -) 1 drop OU BID [facility] Last Admin: 01/26/19 09:35 Dose: 1 drop Cyclobenzaprine HCl (Flexeril -) 10 mg PO TID PRN PRN Reason: MUSCLE SPASMS Last Admin: 01/25/19 21:42 Dose: 10 mg Dexamethasone Sodium Phosphate (Decadron Injection -) 8 mg IVPB Q8H-IV [facility] Last Admin: 01/26/19 09:21 Dose: 8 mg Diphenhydramine HCl (Benadryl Injection -) 12.5 mg IVPUSH ONCE PRN PRN Reason: FOR ITCHING Furosemide (Lasix -) 20 mg PO DAILY [facility] Last Admin: 01/26/19 10:25 Dose: 20 mg Heparin Sodium (Porcine) (Heparin -) 5,000 unit SQ Q8H-IV [facility] Last Admin: 01/26/19 09:23 Dose: 5,000 unit Hydromorphone HCl (Dilaudid Sex Crimes Detective -) 10 mg SET AND EXHIBIT DESIGNER SET AND EXHIBIT DESIGNER [facility]; Protocol Stop: 01/31/19 08:35 Last Admin: 01/26/19 09:29 Dose: 10 mg Sodium Chloride (Normal Saline -) 1,000 mls @ 75 mls/hr IV ASDIR [facility] Last Admin: 01/25/19 17:32 Dose: Not Given Cefazolin Sodium (Ancef 1 Gm Premixed Ivpb -) 1 gm in 50 mls @ 100 mls/hr IVPB Q8H-IV [facility] Last Admin: 01/26/19 09:44 Dose: 100 mls/hr Insulin Aspart (Novolog Vial Sliding Scale -) 1 vial SQ TIDAC [facility]; Protocol Last Admin: 01/26/19 11:25 Dose: 10 units Latanoprost (Xalatan 0.005% Eye Drops -) 1 drop OD HS [facility] Last Admin: 01/25/19 21:43 Dose: 1 drop Loratadine (Claritin -) 10 mg PO DAILY [facility] Last Admin: 01/26/19 09:25 Dose: 10 mg Losartan Potassium (Cozaar -) 50 mg PO DAILY [facility] Last Admin: 01/26/19 09:17 Dose: 50 mg Metoprolol Succinate (Toprol Xl -) 25 mg PO DAILY [facility] Last Admin: 01/26/19 09:17 Dose: 25 mg Ondansetron HCl (Zofran Injection) 4 mg IVPUSH Q4H PRN PRN Reason: NAUSEA AND/OR VOMITING Ondansetron HCl (Zofran Injection) 4 mg IVPUSH Q6H PRN PRN Reason: NAUSEA Pantoprazole Sodium (Protonix -) 20 mg PO DAILY [facility] Last Admin: 01/26/19 09:17 Dose: 20 mg Pramipexole Dihydrochloride (Mirapex -) 0.5 mg PO HS [facility] Last Admin: 01/25/19 21:41 Dose: 0.5 mg Promethazine HCl (Phenergan Injection -) 12.5 mg IVPB Q6H PRN PRN Reason: NAUSEA AND/OR VOMITING Sertraline HCl (Zoloft -) 50 mg PO DAILY [facility] Last Admin: 01/26/19 09:17 Dose: 50 mg Timolol Maleate (Timoptic 0.5%) 1 drop OU BID [facility] Last Admin: 01/26/19 09:35 Dose: 1 drop - Objective Vital Signs: Vital Signs Temperature 98.6 F 01/26/19 10:15 Pulse Rate 112 H 01/26/19 12:00 Respiratory Rate 14 01/26/19 12:00 Blood Pressure 126/88 01/26/19 12:00 O2 Sat by Pulse Oximetry (%) 98 01/26/19 08:00 Constitutional: Yes: No Distress, Calm Cardiovascular: Yes: Regular Rate and Rhythm Respiratory: Yes: Regular, CTA Bilaterally Gastrointestinal: Yes: Normal Bowel Sounds, Soft Musculoskeletal: Yes: WNL Extremities: Yes: WNL Neurological: Yes: Alert, Oriented Psychiatric: Yes: Alert, Oriented Labs: CBC, BMP 01/26/19 07:55 01/26/19 07:55 INR, PTT INR 1.02 (0.83-1.09) 01/24/19 07:50 Assessment/Plan Problem List - Problems (1) Cervical myelopathy Code(s): G95.9 - DISEASE OF SPINAL CORD, UNSPECIFIED (2) HLD (hyperlipidemia) Assessment/Plan: statin Code(s): E78.5 - HYPERLIPIDEMIA, UNSPECIFIED (3) HTN (hypertension) Assessment/Plan: rohit Code(s): I10 - ESSENTIAL (PRIMARY) HYPERTENSION Qualifiers: Hypertension type: essential hypertension Qualified Code(s): I10 - Essential (primary) hypertension Assessment/Plan continue current mgmt pain control; rest as per the team patient doing well
[2019-01-26] MEDS ORDERED: ONDANSETRON 4 MG/2 ML VIAL IVPUSH PRN ×2 (15:07)
[2019-01-26] MEDS ORDERED: CYCLOBENZAPRINE HCL 10 MG TABLET (FP) PO PRN (15:07)
[2019-01-26] MEDS ORDERED: PROMETHAZINE HCL 25 MG/1 ML VIAL IVPB PRN (15:07)
[2019-01-26] MEDS: CEFAZOLIN 1 GM/D5W 1 GM/50 ML BAG IVPB SCH (17:23)
[2019-01-26] MEDS: SODIUM CHLORIDE 1,000 ML IV SCH (17:27)
[2019-01-26] MEDS: ATORVASTATIN CA 20 MG TABLET (FP) PO SCH (21:46)
[2019-01-26] MEDS: LATANOPROST 0.005% OPHTH SOLN 2.5ML BOTTLE OD SCH (22:32)
[2019-01-26] MEDS: PRAMIPEXOLE DIHYDROCHLORIDE 0.5 MG TABLET PO SCH (22:34)
[2019-01-27] MEDS: CEFAZOLIN 1 GM/D5W 1 GM/50 ML BAG IVPB SCH ×3 (01:50→18:01)
[2019-01-27] MEDS: HEPARIN NA (PORCINE) 5,000 UNITS/ML 1ML VIAL SQ SCH ×3 (02:50→18:02)
[2019-01-27] MEDS: DEXAMETHASONE SOD PHOSPHATE 4 MG/1 ML VIAL IVPB SCH ×3 (02:50→21:56)
[2019-01-27] MEDS ORDERED: PT OWN MED DRAWER 7, Y5N ONE ×3 (06:19→19:54)
[2019-01-27] MEDS: INSULIN SLIDING SCALE (NOVOLOG) 1 VIAL SQ SCH ×3 (07:03→18:06)
--- NOTE | 2019-01-27 07:32 | PN ---
Progress Note (short form) - Note Progress Note: POD#3 s/p anterior C6 corpectomy with CAGE placement and plating. C2-7 laminectomy with posterior fusion, c/b post op respiratory distress/ reintubation in PACU Patient seen and examined. States he is doing well. No issues overnight. Reports sleeping throughout the night. Was oob to chair per pt. Tolerating PO. + TOV. Pain is controlled with CENTRAL OFFICE ASSOCIATE. Denies CP, SOB, N/V, fever, chills or headaches. Vital Signs Temp 97.9 F 01/27/19 04:00 Pulse 106 H 01/27/19 04:00 Resp 18 01/27/19 04:00 BP 161/110 H 01/27/19 04:00 Pulse Ox 98 01/26/19 22:00 Intake & Output 01/26/19 01/26/19 01/27/19 11:59 23:59 11:59 Intake Total 975 1475 625 Output Total 1290 650 30 Balance -315 825 595 Weight 184 lb 6 oz 184 lb 180 lb 6.4 oz Intake: IV 525 1125 525 Normal Saline - 1,000 ml 525 450 @ 75 mls/hr IV ASDIR [facility] Rx#:[id number] Normal Saline - 1,000 ml 675 525 @ 75 mls/hr IV ASDIR [facility] Rx#:[id number] IVPB 100 100 50 Oral 350 250 50 Output: Drainage 90 50 30 Posterior 90 50 30 Urine 1200 600 Kumar 1200 Void 600 Other: Voiding Method Indwelling Catheter Urinal # Unmeasured Voids Void 1 Bowel Movement Yes Height 5 ft 5 in Body Mass Index (BMI) 30.6 Weight Measurement Method Built in [facility] Built in [facility] CBC, BMP 01/26/19 07:55 01/26/19 18:30 Gen: A&Ox3, NAD Resp: Unlabored resp on 2L NC HEENT: NC/AT,no facial droop, tongue midline on protrusion. Anterior incision, dressing C/D anterior portion not intact, reinforced with tegaderm. No surrounding edema, no palpable hematoma. Posterior dressing C/D/I, no focal edema or tracking erythema, no active d/c. Posterior drain to bile bag with minimal serosanguinous drainage in reservoir. Neuro: B/L UE community outreach specialist strength 5/5, 5/5 biceps/triceps. Shoulder shrug strong and equal b/l. SILT b/l ue. B/L LE 5/5 dorsi/plantar flexion, 5/5 hip flex/ext. SILT b/l les A/P: 68 y/o M w/ PMHx HTN, HLD, DM, h/o prior lumbar surgeries, admitted 01/24 for elective surgery for progressive Cervical Spondylotic Myelopathy, now POD 3 , s/p anterior C6 corpectomy with CAGE placement and plating. C2-7 laminectomy with posterior fusion, c/b post op respiratory distress/reintubation in PACU 01/24: Reintubated for respiratory distress in PACU, Successfully Extubated shortly after in PACU 01/25: Anterior drain removed 01/26: Transferred to floor, navdeep d/jarrett'ed +TOV 01/27: Afebrile, tachy to low 100s-1teens (?pain), H/H stable on yesterdays labs. Creatinine trended down to 1 on yesterdays labs from 1.5 on 01/25. Glucose >400 (pt on steroids). Drain output 30ml overnight -Decrease Decadron to 8mg q12hrs today -OOB with PT -Maintain c-collar 23hr/day -DVT prophylaxis with Heparin 5000units sq tid, b/l scds and early ambulation -advance diet -CENTRAL OFFICE ASSOCIATE per anesthesia, will likely wean to oral today -No pillow under head -position patient upright in bed or chair as much as tolerated. -Continue to trend labs -Will likely remove drain later today -Glucose control d/w attending Sonal
[2019-01-27 08:10] LABS: HEMATOCRIT 33.2 % (35.4-49); HEMOGLOBIN 11.1 GM/dL (11.7-16.9); LYMPH % 6.5 % (8-40); MCH 34.3 pg (25.7-33.7); MCHC 33.4 g/dl (32.0-35.9); MEAN CELL VOLUME 102.6 fl (80-96); MEAN PLT VOLUME 8.1 fl (7.5-11.1); MONO % 5.7 % (3.8-10.2); NEUT % 87.8 % (42.8-82.8); PLATELET COUNT 177 K/MM3 (134-434); RBC 3.23 M/mm3 (4.00-5.60); RDW 14.5 % (11.9-15.9); WHITE BLOOD COUNT 8.1 K/mm3 (4.0-10.0)
[2019-01-27 08:32] LABS: ALBUMIN 2.9 g/dl (3.4-5.0); ALK PHOS 71 U/L (45-117); ANION GAP 10 MMOL/L (8-16); BILIRUBIN,TOTAL 0.6 mg/dL (0.2-1); BLOOD UREA NITROGEN 26 mg/dL (7-18); CALCIUM 7.8 mg/dL (8.5-10.1); CHLORIDE 104 mmol/L (98-107); CO2 26 mmol/L (21-32); MAGNESIUM 2.3 mg/dL (1.8-2.4); PHOSPHOROUS 2.6 mg/dL (2.5-4.9); POTASSIUM 3.7 mmol/L (3.5-5.1); SGOT/AST 27 U/L (15-37); SGPT/ALT 31 U/L (13-61); SODIUM 139 mmol/L (136-145); TOT PROT 6.2 g/dl (6.4-8.2)
[2019-01-27 08:51] LABS: GLUCOSE,RANDOM 306 mg/dL (74-106)
[2019-01-27] MEDS: LOSARTAN POTASSIUM 50 MG TABLET (FP) PO SCH ×2 (08:58→10:26)
[2019-01-27] MEDS: metoPROLOL SUCCINATE 25 MG TAB.SR.24H (FP) PO SCH ×2 (08:58→10:26)
[2019-01-27] MEDS: PANTOPRAZOLE 20 MG TABLET (FP) PO SCH (10:22)
[2019-01-27] MEDS: SERTRALINE HCL 50 MG TABLET (FP) PO SCH (10:22)
[2019-01-27] MEDS: ASPIRIN 81 MG CHEWABLE TABLETS PO SCH (10:23)
[2019-01-27] MEDS: LORATADINE 10 MG TABLET PO SCH (10:23)
[2019-01-27] MEDS: FUROSEMIDE 20 MG TABLET (FP) PO SCH (10:23)
[2019-01-27] MEDS: BRIMONIDINE TARTRATE 0.2% OPHTHALMIC 5 ML BOTTLE OU SCH ×2 (10:32→21:57)
[2019-01-27] MEDS: TIMOLOL 0.5% OPHTHALMIC SOL 5 ML BOTTLE OU SCH ×3 (10:32→23:16)
[2019-01-27] MEDS: SODIUM CHLORIDE 1,000 ML IV SCH ×2 (11:46→15:11)
--- NOTE | 2019-01-27 13:25 | PN ---
Progress Note, Physician History of Present Illness: stable doing well off of collar at the moment - Current Medication List Current Medications: Active Medications Aspirin (Asa -) 81 mg PO DAILY [facility] Last Admin: 01/27/19 10:23 Dose: 81 mg Atorvastatin Calcium (Lipitor -) 20 mg PO HS [facility] Last Admin: 01/26/19 21:46 Dose: 20 mg Brimonidine Tartrate (Alphagan 0.2% -) 1 drop OU BID [facility] Last Admin: 01/27/19 10:32 Dose: 1 drop Cyclobenzaprine HCl (Flexeril -) 10 mg PO TID PRN PRN Reason: MUSCLE SPASMS Dexamethasone Sodium Phosphate (Decadron Injection -) 8 mg IVPB BID [facility] Diphenhydramine HCl (Benadryl Injection -) 12.5 mg IVPUSH ONCE PRN PRN Reason: FOR ITCHING Furosemide (Lasix -) 20 mg PO DAILY [facility] Last Admin: 01/27/19 10:23 Dose: 20 mg Heparin Sodium (Porcine) (Heparin -) 5,000 unit SQ Q8H-IV [facility] Last Admin: 01/27/19 10:23 Dose: 5,000 unit Hydromorphone HCl (Dilaudid Long Term Acute Care Registered Nurse -) 10 mg SIX PACK PACKER SIX PACK PACKER [facility]; Protocol Stop: 01/31/19 08:35 Last Admin: 01/26/19 16:06 Dose: Not Given Cefazolin Sodium (Ancef 1 Gm Premixed Ivpb -) 1 gm in 50 mls @ 100 mls/hr IVPB Q8H-IV [facility] Last Admin: 01/27/19 10:26 Dose: 100 mls/hr Sodium Chloride (Normal Saline -) 1,000 mls @ 75 mls/hr IV ASDIR [facility] Last Admin: 01/27/19 11:46 Dose: 75 mls/hr Insulin Aspart (Novolog Vial Sliding Scale -) 1 vial SQ TIDAC [facility]; Protocol Last Admin: 01/27/19 12:20 Dose: 6 units Latanoprost (Xalatan 0.005% Eye Drops -) 1 drop OD HS [facility] Last Admin: 01/26/19 22:32 Dose: 1 drop Loratadine (Claritin -) 10 mg PO DAILY [facility] Last Admin: 01/27/19 10:23 Dose: 10 mg Losartan Potassium (Cozaar -) 50 mg PO DAILY [facility] Last Admin: 01/27/19 10:26 Dose: Not Given Metoprolol Succinate (Toprol Xl -) 25 mg PO DAILY [facility] Last Admin: 01/27/19 10:26 Dose: Not Given Ondansetron HCl (Zofran Injection) 4 mg IVPUSH Q4H PRN PRN Reason: NAUSEA AND/OR VOMITING Ondansetron HCl (Zofran Injection) 4 mg IVPUSH Q6H PRN PRN Reason: NAUSEA Pantoprazole Sodium (Protonix -) 20 mg PO DAILY [facility] Last Admin: 01/27/19 10:22 Dose: 20 mg Pramipexole Dihydrochloride (Mirapex -) 0.5 mg PO HS [facility] Last Admin: 01/26/19 22:34 Dose: 0.5 mg Promethazine HCl (Phenergan Injection -) 12.5 mg IVPB Q6H PRN PRN Reason: NAUSEA AND/OR VOMITING Sertraline HCl (Zoloft -) 50 mg PO DAILY [facility] Last Admin: 01/27/19 10:22 Dose: 50 mg Timolol Maleate (Timoptic 0.5%) 1 drop OU BID [facility] Last Admin: 01/27/19 10:32 Dose: 1 drop - Objective Vital Signs: Vital Signs Temperature 98.2 F 01/27/19 08:00 Pulse Rate 107 H 01/27/19 08:00 Respiratory Rate 20 01/27/19 08:00 Blood Pressure 129/56 L 01/27/19 08:00 O2 Sat by Pulse Oximetry (%) 98 01/26/19 22:00 Constitutional: Yes: No Distress, Calm Cardiovascular: Yes: Regular Rate and Rhythm Respiratory: Yes: Regular, CTA Bilaterally Gastrointestinal: Yes: Normal Bowel Sounds, Soft Musculoskeletal: Yes: WNL Extremities: Yes: WNL Wound/Incision: Yes: Dressing Dry and Intact Neurological: Yes: Alert, Oriented Psychiatric: Yes: Alert, Oriented Labs: CBC, BMP 01/27/19 06:30 01/27/19 06:30 INR, PTT INR 1.02 (0.83-1.09) 01/24/19 07:50 Assessment/Plan Problem List - Problems (1) Cervical myelopathy Code(s): G95.9 - DISEASE OF SPINAL CORD, UNSPECIFIED (2) HLD (hyperlipidemia) Assessment/Plan: statin Code(s): E78.5 - HYPERLIPIDEMIA, UNSPECIFIED (3) HTN (hypertension) Assessment/Plan: rohit Code(s): I10 - ESSENTIAL (PRIMARY) HYPERTENSION Qualifiers: Hypertension type: essential hypertension Qualified Code(s): I10 - Essential (primary) hypertension Assessment/Plan continue current mgmt pain control; rest as per the team patient doing well we can stop the abx
--- NOTE | 2019-01-27 14:52 | PN ---
Progress Note, Physician Chief Complaint: Disc herniation c5-6 and c6-7 Cervical Spondylotic Myelopathy s/p anterior C6 corpectomy with CAGE placement and plating History of Present Illness: Previous notes and events reviewed awake and alert NAD PRINTING PRESS MACHINIST pump for pain management--sts pain controlled drain noted with bloody output denies chest pain, SOB - Current Medication List Current Medications: Active Medications Aspirin (Asa -) 81 mg PO DAILY [facility] Last Admin: 01/27/19 10:23 Dose: 81 mg Atorvastatin Calcium (Lipitor -) 20 mg PO HS [facility] Last Admin: 01/26/19 21:46 Dose: 20 mg Brimonidine Tartrate (Alphagan 0.2% -) 1 drop OU BID [facility] Last Admin: 01/27/19 10:32 Dose: 1 drop Cyclobenzaprine HCl (Flexeril -) 10 mg PO TID PRN PRN Reason: MUSCLE SPASMS Dexamethasone Sodium Phosphate (Decadron Injection -) 8 mg IVPB BID [facility]VI Diphenhydramine HCl (Benadryl Injection -) 12.5 mg IVPUSH ONCE PRN PRN Reason: FOR ITCHING Furosemide (Lasix -) 20 mg PO DAILY [facility] Last Admin: 01/27/19 10:23 Dose: 20 mg Heparin Sodium (Porcine) (Heparin -) 5,000 unit SQ Q8H-IV [facility] Last Admin: 01/27/19 10:23 Dose: 5,000 unit Hydromorphone HCl (Dilaudid Impression Printer -) 10 mg PRINTING PRESS MACHINIST PRINTING PRESS MACHINIST [facility]; Protocol Stop: 01/31/19 08:35 Last Admin: 01/26/19 16:06 Dose: Not Given Cefazolin Sodium (Ancef 1 Gm Premixed Ivpb -) 1 gm in 50 mls @ 100 mls/hr IVPB Q8H-IV [facility] Last Admin: 01/27/19 10:26 Dose: 100 mls/hr Sodium Chloride (Normal Saline -) 1,000 mls @ 75 mls/hr IV ASDIR [facility] Last Admin: 01/27/19 11:46 Dose: 75 mls/hr Insulin Aspart (Novolog Vial Sliding Scale -) 1 vial SQ TIDAC [facility]; Protocol Last Admin: 01/27/19 12:20 Dose: 6 units Latanoprost (Xalatan 0.005% Eye Drops -) 1 drop OD HS [facility] Last Admin: 03/28/19 22:32 Dose: 1 drop Loratadine (Claritin -) 10 mg PO DAILY [facility] Last Admin: 01/27/19 10:23 Dose: 10 mg Losartan Potassium (Cozaar -) 50 mg PO DAILY [facility] Last Admin: 01/27/19 10:26 Dose: Not Given Metoprolol Succinate (Toprol Xl -) 25 mg PO DAILY [facility] Last Admin: 01/27/19 10:26 Dose: Not Given Ondansetron HCl (Zofran Injection) 4 mg IVPUSH Q4H PRN PRN Reason: NAUSEA AND/OR VOMITING Ondansetron HCl (Zofran Injection) 4 mg IVPUSH Q6H PRN PRN Reason: NAUSEA Pantoprazole Sodium (Protonix -) 20 mg PO DAILY [facility] Last Admin: 01/27/19 10:22 Dose: 20 mg Pramipexole Dihydrochloride (Mirapex -) 0.5 mg PO HS [facility] Last Admin: 01/26/19 22:34 Dose: 0.5 mg Promethazine HCl (Phenergan Injection -) 12.5 mg IVPB Q6H PRN PRN Reason: NAUSEA AND/OR VOMITING Sertraline HCl (Zoloft -) 50 mg PO DAILY [facility] Last Admin: 01/27/19 10:22 Dose: 50 mg Timolol Maleate (Timoptic 0.5%) 1 drop OU BID [facility] Last Admin: 01/27/19 10:32 Dose: 1 drop - Objective Vital Signs: Vital Signs Temperature 97.5 F L 01/27/19 14:00 Pulse Rate 108 H 01/27/19 14:00 Respiratory Rate 18 01/27/19 14:00 Blood Pressure 132/83 01/27/19 14:00 O2 Sat by Pulse Oximetry (%) 98 01/26/19 22:00 Constitutional: Yes: No Distress, Calm Eyes: Yes: Conjunctiva Clear HENT: Yes: Atraumatic Neck: Yes: Other (c-collar) Cardiovascular: Yes: Regular Rate and Rhythm Respiratory: Yes: CTA Bilaterally, On Nasal O2 Gastrointestinal: Yes: Normal Bowel Sounds, Soft Musculoskeletal: Yes: Muscle Weakness Extremities: Yes: WNL Edema: No Wound/Incision: Yes: Dressing Dry and Intact, Draining (bloody output noted) Neurological: Yes: Alert, Oriented Psychiatric: Yes: Alert, Oriented Labs: CBC, BMP 01/27/19 06:30 01/27/19 06:30 INR, PTT INR 1.02 (0.83-1.09) 01/24/19 07:50 Microbiology 01/24/19 21:20 Blood - Peripheral Venous Blood Culture - Preliminary NO GROWTH OBTAINED AFTER 48 HOURS, INCUBATION TO CONTINUE FOR 3 DAYS. 01/24/19 21:30 Blood - Peripheral Venous Blood Culture - Preliminary NO GROWTH OBTAINED AFTER 48 HOURS, INCUBATION TO CONTINUE FOR 3 DAYS. Problem List - Problems (1) Cervical myelopathy Assessment/Plan: -neurosurgery on board -POD #3 s/p anterior c6 corpectomy with CAGE placement and plating, c2-7 laminectomy with posterior fusion -continue with c-collar 23h/day -PRINTING PRESS MACHINIST pump for pain management -monitor drain output -C spine CT scan results reviewed Code(s): G95.9 - DISEASE OF SPINAL CORD, UNSPECIFIED (2) DJD (degenerative joint disease) Assessment/Plan: -pain management -corrective surgery performed -POD #3 s/p anterior c6 corpectomy with CAGE placement and plating, c2-7 laminectomy with posterior fusion -continue with c-collar 23h/day Code(s): M19.90 - UNSPECIFIED OSTEOARTHRITIS, UNSPECIFIED SITE Qualifiers: Osteoarthritis location: spine Spinal region: lumbar Spinal osteoarthritis complication: with myelopathy Qualified Code(s): M47.16 - Other spondylosis with myelopathy, lumbar region (3) Diabetes Assessment/Plan: -BG ACHS -ISS Code(s): E11.9 - TYPE 2 DIABETES MELLITUS WITHOUT COMPLICATIONS Qualifiers: Diabetes mellitus type: type 2 Diabetes mellitus chcf insulin use: with termite treater helper use Diabetes mellitus complication status: with unspecified complications Qualified Code(s): E11.8 - Type 2 diabetes mellitus with unspecified complications; Z79.4 - terminal clerk (current) use of insulin (4) GERD (gastroesophageal reflux disease) Assessment/Plan: -continue with pantoprazole Code(s): K21.9 - GASTRO-ESOPHAGEAL REFLUX DISEASE WITHOUT ESOPHAGITIS Qualifiers: Esophagitis presence: without esophagitis Qualified Code(s): K21.9 - Gastro -esophageal reflux disease without esophagitis (5) HLD (hyperlipidemia) Assessment/Plan: -continue with atorvastatin Code(s): E78.5 - HYPERLIPIDEMIA, UNSPECIFIED (6) HTN (hypertension) Assessment/Plan: -continue with Losartan Code(s): I10 - ESSENTIAL (PRIMARY) HYPERTENSION Qualifiers: Hypertension type: essential hypertension Qualified Code(s): I10 - Essential (primary) hypertension Assessment/Plan see problem list dvt ppx
[2019-01-27] MEDS: HYDROmorphone *PCA* 10MG/50ML DISP.SYRIN PCA SCH (15:11)
[2019-01-27] MEDS: ATORVASTATIN CA 20 MG TABLET (FP) PO SCH (21:56)
[2019-01-27] MEDS: PRAMIPEXOLE DIHYDROCHLORIDE 0.5 MG TABLET PO SCH (21:57)
[2019-01-27] MEDS: LATANOPROST 0.005% OPHTH SOLN 2.5ML BOTTLE OD SCH (21:57)
[2019-01-28] MEDS: HEPARIN NA (PORCINE) 5,000 UNITS/ML 1ML VIAL SQ SCH ×3 (02:00→17:37)
[2019-01-28] MEDS: CEFAZOLIN 1 GM/D5W 1 GM/50 ML BAG IVPB SCH ×3 (02:08→17:39)
[2019-01-28] MEDS ORDERED: PT OWN MED DRAWER 7, Y5N ONE ×3 (05:50→22:03)
[2019-01-28] MEDS: INSULIN SLIDING SCALE (NOVOLOG) 1 VIAL SQ SCH ×3 (06:47→16:32)
[2019-01-28 08:54] LABS: HEMATOCRIT 35.2 % (35.4-49); HEMOGLOBIN 11.9 GM/dL (11.7-16.9); MCH 35.2 pg (25.7-33.7); MCHC 33.8 g/dl (32.0-35.9); MEAN CELL VOLUME 103.9 fl (80-96); MEAN PLT VOLUME 7.9 fl (7.5-11.1); PLATELET COUNT 203 K/MM3 (134-434); RBC 3.39 M/mm3 (4.00-5.60); RDW 14.7 % (11.9-15.9); WHITE BLOOD COUNT 6.8 K/mm3 (4.0-10.0)
[2019-01-28 09:17] LABS: ALBUMIN 3.2 g/dl (3.4-5.0); ALK PHOS 72 U/L (45-117); ANION GAP 5 MMOL/L (8-16); BILIRUBIN,TOTAL 0.6 mg/dL (0.2-1); BLOOD UREA NITROGEN 25 mg/dL (7-18); CALCIUM 8.4 mg/dL (8.5-10.1); CHLORIDE 104 mmol/L (98-107); CO2 28 mmol/L (21-32); CREATININE 0.9 mg/dL (0.55-1.3); GLUCOSE,RANDOM 271 mg/dL (74-106); POTASSIUM 3.8 mmol/L (3.5-5.1); SGOT/AST 27 U/L (15-37); SGPT/ALT 33 U/L (13-61); SODIUM 137 mmol/L (136-145); TOT PROT 7.2 g/dl (6.4-8.2)
[2019-01-28] MEDS: ASPIRIN 81 MG CHEWABLE TABLETS PO SCH (09:58)
[2019-01-28] MEDS: metoPROLOL SUCCINATE 25 MG TAB.SR.24H (FP) PO SCH (09:59)
[2019-01-28] MEDS: FUROSEMIDE 20 MG TABLET (FP) PO SCH (09:59)
[2019-01-28] MEDS: SERTRALINE HCL 50 MG TABLET (FP) PO SCH (09:59)
[2019-01-28] MEDS: LOSARTAN POTASSIUM 50 MG TABLET (FP) PO SCH (09:59)
[2019-01-28] MEDS: PANTOPRAZOLE 20 MG TABLET (FP) PO SCH (09:59)
[2019-01-28] MEDS: LORATADINE 10 MG TABLET PO SCH (09:59)
[2019-01-28] MEDS: DEXAMETHASONE SOD PHOSPHATE 4 MG/1 ML VIAL IVPB SCH ×2 (10:03→21:59)
[2019-01-28] MEDS: TIMOLOL 0.5% OPHTHALMIC SOL 5 ML BOTTLE OU SCH ×2 (10:08→22:01)
[2019-01-28] MEDS: BRIMONIDINE TARTRATE 0.2% OPHTHALMIC 5 ML BOTTLE OU SCH ×2 (10:08→22:01)
--- NOTE | 2019-01-28 10:26 | PN ---
Progress Note, Physician Chief Complaint: EVENTS AND NOTES REVIEWED AWAKE ALERT DENIES CHEST PAIN OR SOB +BM - Current Medication List Current Medications: Active Medications Aspirin (Asa -) 81 mg PO DAILY [facility] Last Admin: 01/28/19 09:58 Dose: 81 mg Atorvastatin Calcium (Lipitor -) 20 mg PO HS [facility] Last Admin: 01/27/19 21:56 Dose: 20 mg Brimonidine Tartrate (Alphagan 0.2% -) 1 drop OU BID [facility] Last Admin: 01/28/19 10:08 Dose: 1 drop Cyclobenzaprine HCl (Flexeril -) 10 mg PO TID PRN PRN Reason: MUSCLE SPASMS Dexamethasone Sodium Phosphate (Decadron Injection -) 8 mg IVPB BID [facility] Last Admin: 01/28/19 10:03 Dose: 8 mg Diphenhydramine HCl (Benadryl Injection -) 12.5 mg IVPUSH ONCE PRN PRN Reason: FOR ITCHING Furosemide (Lasix -) 20 mg PO DAILY [facility] Last Admin: 01/28/19 09:59 Dose: 20 mg Heparin Sodium (Porcine) (Heparin -) 5,000 unit SQ Q8H-IV [facility] Last Admin: 01/28/19 10:03 Dose: 5,000 unit Hydromorphone HCl (Dilaudid Traffic Control Specialist -) 10 mg BEHAVIORAL INSTRUCTOR BEHAVIORAL INSTRUCTOR [facility]; Protocol Stop: 01/31/19 08:35 Last Admin: 01/27/19 15:11 Dose: Not Given Cefazolin Sodium (Ancef 1 Gm Premixed Ivpb -) 1 gm in 50 mls @ 100 mls/hr IVPB Q8H-IV [facility] Last Admin: 01/28/19 10:00 Dose: 100 mls/hr Sodium Chloride (Normal Saline -) 1,000 mls @ 75 mls/hr IV ASDIR [facility] Last Admin: 01/27/19 15:11 Dose: Not Given Insulin Aspart (Novolog Vial Sliding Scale -) 1 vial SQ TIDAC [facility]; Protocol Last Admin: 01/28/19 06:47 Dose: 8 units Latanoprost (Xalatan 0.005% Eye Drops -) 1 drop OD HS [facility] Last Admin: 01/27/19 21:57 Dose: 1 drop Loratadine (Claritin -) 10 mg PO DAILY [facility] Last Admin: 01/28/19 09:59 Dose: 10 mg Losartan Potassium (Cozaar -) 50 mg PO DAILY [facility] Last Admin: 01/28/19 09:59 Dose: 50 mg Metoprolol Succinate (Toprol Xl -) 25 mg PO DAILY [facility] Last Admin: 01/28/19 09:59 Dose: 25 mg Ondansetron HCl (Zofran Injection) 4 mg IVPUSH Q4H PRN PRN Reason: NAUSEA AND/OR VOMITING Ondansetron HCl (Zofran Injection) 4 mg IVPUSH Q6H PRN PRN Reason: NAUSEA Pantoprazole Sodium (Protonix -) 20 mg PO DAILY [facility] Last Admin: 01/28/19 09:59 Dose: 20 mg Pramipexole Dihydrochloride (Mirapex -) 0.5 mg PO HS [facility] Last Admin: 01/27/19 21:57 Dose: 0.5 mg Promethazine HCl (Phenergan Injection -) 12.5 mg IVPB Q6H PRN PRN Reason: NAUSEA AND/OR VOMITING Sertraline HCl (Zoloft -) 50 mg PO DAILY [facility] Last Admin: 01/28/19 09:59 Dose: 50 mg Timolol Maleate (Timoptic 0.5%) 1 drop OU BID [facility] Last Admin: 01/28/19 10:08 Dose: 1 drop - Objective Vital Signs: Vital Signs Temperature 98.2 F 01/28/19 05:23 Pulse Rate 96 H 01/28/19 05:23 Respiratory Rate 20 01/28/19 05:23 Blood Pressure 158/108 H 01/28/19 05:23 O2 Sat by Pulse Oximetry (%) 97 01/27/19 10:00 Constitutional: Yes: Mild Distress Eyes: Yes: WNL HENT: Yes: WNL Neck: Yes: Other (CERVICAL SPINE COLLAR) Cardiovascular: Yes: Regular Rate and Rhythm Respiratory: Yes: WNL Gastrointestinal: Yes: WNL Genitourinary: Yes: WNL Musculoskeletal: Yes: WNL Extremities: Yes: WNL Edema: No Peripheral Pulses WNL: Yes Integumentary: Yes: WNL Wound/Incision: Yes: Clean/Dry Neurological: Yes: WNL ...Motor Strength: WNL Psychiatric: Yes: WNL Labs: CBC, BMP 01/28/19 08:25 01/28/19 08:25 INR, PTT INR 1.02 (0.83-1.09) 01/24/19 07:50 Problem List - Problems (1) Cervical myelopathy Code(s): G95.9 - DISEASE OF SPINAL CORD, UNSPECIFIED (2) DJD (degenerative joint disease) Code(s): M19.90 - UNSPECIFIED OSTEOARTHRITIS, UNSPECIFIED SITE Qualifiers: Osteoarthritis location: spine Spinal region: lumbar Spinal osteoarthritis complication: with myelopathy Qualified Code(s): M47.16 - Other spondylosis with myelopathy, lumbar region (3) Diabetes Code(s): E11.9 - TYPE 2 DIABETES MELLITUS WITHOUT COMPLICATIONS Qualifiers: Diabetes mellitus type: type 2 Diabetes mellitus intermediate project manager insulin use: with intermediate project manager use Diabetes mellitus complication status: with unspecified complications Qualified Code(s): E11.8 - Type 2 diabetes mellitus with unspecified complications; Z79.4 - long term care pharmacist (current) use of insulin (4) GERD (gastroesophageal reflux disease) Code(s): K21.9 - GASTRO-ESOPHAGEAL REFLUX DISEASE WITHOUT ESOPHAGITIS Qualifiers: Esophagitis presence: without esophagitis Qualified Code(s): K21.9 - Gastro -esophageal reflux disease without esophagitis (5) HLD (hyperlipidemia) Code(s): E78.5 - HYPERLIPIDEMIA, UNSPECIFIED (6) HTN (hypertension) Code(s): I10 - ESSENTIAL (PRIMARY) HYPERTENSION Qualifiers: Hypertension type: essential hypertension Qualified Code(s): I10 - Essential (primary) hypertension (7) History of lumbar fusion Code(s): Z98.1 - ARTHRODESIS STATUS (8) Thoracic aortic aneurysm Code(s): I71.2 - THORACIC AORTIC ANEURYSM, WITHOUT RUPTURE Assessment/Plan TAPERING DECADRON IV S/P EXTUBATION WITH PHARYNGEAL EDEMA SWALLOWING AND BREATHING WITHOUT DIFFICULTY POST OP CERVICAL CORPECTOMY WITH CERVICAL CAGE C2-C7 PPI AND DVT PROPHYLAXIS CONTINUED IV CEFAZOLIN CONT INCENTIVE SPIROMETRY OOB TO CHAIR WITH PT WHEN CLEARED BY NEUROLOGY DC PLANNING [facility] TOMORROW
[2019-01-28] MEDS: SODIUM CHLORIDE 1,000 ML IV SCH (15:21)
[2019-01-28] MEDS: HYDROmorphone *PCA* 10MG/50ML DISP.SYRIN PCA SCH (17:29)
--- NOTE | 2019-01-28 18:49 | PN ---
Progress Note, Physician History of Present Illness: Pt seen and examined. Events noted. He states he is feeling well. Has no specific complaints. Denies shortness of breath/remains afebrile. - Current Medication List Current Medications: Active Medications Aspirin (Asa -) 81 mg PO DAILY [facility] Last Admin: 01/28/19 09:58 Dose: 81 mg Atorvastatin Calcium (Lipitor -) 20 mg PO HS [facility] Last Admin: 01/27/19 21:56 Dose: 20 mg Brimonidine Tartrate (Alphagan 0.2% -) 1 drop OU BID [facility] Last Admin: 01/28/19 10:08 Dose: 1 drop Cyclobenzaprine HCl (Flexeril -) 10 mg PO TID PRN PRN Reason: MUSCLE SPASMS Dexamethasone Sodium Phosphate (Decadron Injection -) 8 mg IVPB BID [facility] Last Admin: 01/28/19 10:03 Dose: 8 mg Diphenhydramine HCl (Benadryl Injection -) 12.5 mg IVPUSH ONCE PRN PRN Reason: FOR ITCHING Furosemide (Lasix -) 20 mg PO DAILY [facility] Last Admin: 01/28/19 09:59 Dose: 20 mg Heparin Sodium (Porcine) (Heparin -) 5,000 unit SQ Q8H-IV [facility] Last Admin: 01/28/19 17:37 Dose: 5,000 unit Hydromorphone HCl (Dilaudid Broomcorn Scraper -) 10 mg ANALYST COMPETITIVE INTELLIGENCE ANALYST COMPETITIVE INTELLIGENCE [facility]; Protocol Stop: 01/31/19 08:35 Last Admin: 01/28/19 17:29 Dose: 10 mg Cefazolin Sodium (Ancef 1 Gm Premixed Ivpb -) 1 gm in 50 mls @ 100 mls/hr IVPB Q8H-IV [facility] Last Admin: 01/28/19 17:39 Dose: 100 mls/hr Sodium Chloride (Normal Saline -) 1,000 mls @ 75 mls/hr IV ASDIR [facility] Last Admin: 01/28/19 15:21 Dose: 75 mls/hr Insulin Aspart (Novolog Vial Sliding Scale -) 1 vial SQ TIDAC [facility]; Protocol Last Admin: 01/28/19 16:32 Dose: 8 units Latanoprost (Xalatan 0.005% Eye Drops -) 1 drop OD HS [facility] Last Admin: 01/27/19 21:57 Dose: 1 drop Loratadine (Claritin -) 10 mg PO DAILY [facility] Last Admin: 01/28/19 09:59 Dose: 10 mg Losartan Potassium (Cozaar -) 50 mg PO DAILY [facility] Last Admin: 01/28/19 09:59 Dose: 50 mg Metoprolol Succinate (Toprol Xl -) 25 mg PO DAILY [facility] Last Admin: 01/28/19 09:59 Dose: 25 mg Ondansetron HCl (Zofran Injection) 4 mg IVPUSH Q4H PRN PRN Reason: NAUSEA AND/OR VOMITING Ondansetron HCl (Zofran Injection) 4 mg IVPUSH Q6H PRN PRN Reason: NAUSEA Pantoprazole Sodium (Protonix -) 20 mg PO DAILY [facility] Last Admin: 01/28/19 09:59 Dose: 20 mg Pramipexole Dihydrochloride (Mirapex -) 0.5 mg PO HS [facility] Last Admin: 01/27/19 21:57 Dose: 0.5 mg Promethazine HCl (Phenergan Injection -) 12.5 mg IVPB Q6H PRN PRN Reason: NAUSEA AND/OR VOMITING Sertraline HCl (Zoloft -) 50 mg PO DAILY [facility] Last Admin: 01/28/19 09:59 Dose: 50 mg Timolol Maleate (Timoptic 0.5%) 1 drop OU BID [facility] Last Admin: 01/28/19 10:08 Dose: 1 drop - Objective Vital Signs: Vital Signs Temperature 97.9 F 01/28/19 14:10 Pulse Rate 95 H 01/28/19 18:32 Respiratory Rate 14 01/28/19 18:32 Blood Pressure 163/108 H 01/28/19 18:32 O2 Sat by Pulse Oximetry (%) 98 01/28/19 10:00 Constitutional: Yes: No Distress, Calm HENT: Yes: Other (cervical collar, drain with serosanguinous fluid) Cardiovascular: Yes: Regular Rate and Rhythm Respiratory: Yes: Regular Gastrointestinal: Yes: Normal Bowel Sounds, Soft Extremities: Yes: WNL Neurological: Yes: Alert Labs: CBC, BMP 01/28/19 08:25 01/28/19 08:25 INR, PTT INR 1.02 (0.83-1.09) 01/24/19 07:50 Problem List - Problems (1) Cervical myelopathy Code(s): G95.9 - DISEASE OF SPINAL CORD, UNSPECIFIED (2) DJD (degenerative joint disease) Code(s): M19.90 - UNSPECIFIED OSTEOARTHRITIS, UNSPECIFIED SITE Qualifiers: Osteoarthritis location: spine Spinal region: lumbar Spinal osteoarthritis complication: with myelopathy Qualified Code(s): M47.16 - Other spondylosis with myelopathy, lumbar region (3) Diabetes Code(s): E11.9 - TYPE 2 DIABETES MELLITUS WITHOUT COMPLICATIONS Qualifiers: Diabetes mellitus type: type 2 Diabetes mellitus snf insulin use: with superintendent marine oil terminal use Diabetes mellitus complication status: with unspecified complications Qualified Code(s): E11.8 - Type 2 diabetes mellitus with unspecified complications; Z79.4 - vermin exterminator (current) use of insulin (4) GERD (gastroesophageal reflux disease) Code(s): K21.9 - GASTRO-ESOPHAGEAL REFLUX DISEASE WITHOUT ESOPHAGITIS Qualifiers: Esophagitis presence: without esophagitis Qualified Code(s): K21.9 - Gastro -esophageal reflux disease without esophagitis (5) HLD (hyperlipidemia) Code(s): E78.5 - HYPERLIPIDEMIA, UNSPECIFIED (6) HTN (hypertension) Code(s): I10 - ESSENTIAL (PRIMARY) HYPERTENSION Qualifiers: Hypertension type: essential hypertension Qualified Code(s): I10 - Essential (primary) hypertension (7) History of lumbar fusion Code(s): Z98.1 - ARTHRODESIS STATUS (8) S/P lumbar fusion Code(s): Z98.1 - ARTHRODESIS STATUS (9) Thoracic aortic aneurysm Code(s): I71.2 - THORACIC AORTIC ANEURYSM, WITHOUT RUPTURE Assessment/Plan s/p Cervical corpectomy/Cage placement/fusion -- Pt is afebrile, stable at this time Monitor off antibiotics
[2019-01-28] MEDS: ATORVASTATIN CA 20 MG TABLET (FP) PO SCH (21:59)
[2019-01-28] MEDS: LATANOPROST 0.005% OPHTH SOLN 2.5ML BOTTLE OD SCH (22:01)
[2019-01-28] MEDS: PRAMIPEXOLE DIHYDROCHLORIDE 0.5 MG TABLET PO SCH (22:03)
[2019-01-29] MEDS: CEFAZOLIN 1 GM/D5W 1 GM/50 ML BAG IVPB SCH ×3 (02:49→17:56)
[2019-01-29] MEDS: HEPARIN NA (PORCINE) 5,000 UNITS/ML 1ML VIAL SQ SCH ×3 (02:50→18:30)
[2019-01-29] MEDS: SODIUM CHLORIDE 1,000 ML IV SCH ×2 (06:07→20:02)
[2019-01-29] MEDS: INSULIN SLIDING SCALE (NOVOLOG) 1 VIAL SQ SCH ×3 (07:05→17:05)
[2019-01-29] MEDS ORDERED: PT OWN MED DRAWER 7, Y5N ONE ×2 (09:59→21:31)
[2019-01-29] MEDS: LOSARTAN POTASSIUM 50 MG TABLET (FP) PO SCH (10:10)
[2019-01-29] MEDS: FUROSEMIDE 20 MG TABLET (FP) PO SCH (10:10)
[2019-01-29] MEDS: ASPIRIN 81 MG CHEWABLE TABLETS PO SCH (10:10)
[2019-01-29] MEDS: LORATADINE 10 MG TABLET PO SCH (10:10)
[2019-01-29] MEDS: SERTRALINE HCL 50 MG TABLET (FP) PO SCH (10:13)
[2019-01-29] MEDS: metoPROLOL SUCCINATE 25 MG TAB.SR.24H (FP) PO SCH (10:13)
[2019-01-29] MEDS: PANTOPRAZOLE 20 MG TABLET (FP) PO SCH (10:13)
[2019-01-29] MEDS: DEXAMETHASONE SOD PHOSPHATE 4 MG/1 ML VIAL IVPB SCH ×2 (10:14→23:00)
[2019-01-29] MEDS: BRIMONIDINE TARTRATE 0.2% OPHTHALMIC 5 ML BOTTLE OU SCH ×2 (10:16→23:09)
[2019-01-29] MEDS: TIMOLOL 0.5% OPHTHALMIC SOL 5 ML BOTTLE OU SCH ×2 (10:17→23:09)
--- NOTE | 2019-01-29 12:51 | DS ---
"Physical Examination Vital Signs: Vital Signs Temperature 97.3 F L 01/29/19 08:40 Pulse Rate 112 H 01/29/19 09:40 Respiratory Rate 20 01/29/19 08:40 Blood Pressure 134/83 01/29/19 09:40 O2 Sat by Pulse Oximetry (%) 98 01/28/19 22:00 Constitutional: Yes: No Distress Eyes: Yes: WNL HENT: Yes: Other Neck: Yes: WNL Cardiovascular: Yes: Regular Rate and Rhythm Respiratory: Yes: WNL Gastrointestinal: Yes: WNL Musculoskeletal: Yes: Muscle Weakness Edema: No Integumentary: Yes: WNL Wound/Incision: Yes: Dressing Dry and Intact Neurological: Yes: Pre-Existing Deficit, Weakness ...Motor Strength: LLE, RLE Psychiatric: Yes: WNL Labs: CBC, BMP 01/28/19 08:25 01/28/19 08:25 Discharge Summary Reason For Visit: CERVICAL SPONDYLOSIS AND KYPHOSIS Current Active Problems Cervical myelopathy (Acute) Procedures: Principal: C2-C7 CERVICAL SPINE SURGERY WITH CAGE SURGICAL HARDWARE Hospital Course: ADMITTED CERVICAL SLINE SURGERY, RECOVERING WELL, NOW WILL NEED REHAB/PT Condition: Stable - Instructions Diet, Activity, Other Instructions: Post Operative Instructions Physical Activity Resume your normal everyday activity as tolerated. No heavy lifting or exercise until seen by your surgeon. You may walk unlimited amounts and climb stairs. You may resume driving the car when you feel safe and comfortable behind the wheel and you are no longer wearing your brace. Do not operate a vehicle while taking narcotic medication. Brace You had neck surgery, wear surgical collar 23 hr/day. Remove to shower only. Wound Care Keep your incision clean, dry and covered at all times. Apply an occlusive dressing (Saran wrap or Tegaderm) when showering to avoid getting your incision wet. Do not submerge incision or apply ointments or creams. The lazarus will be removed in the office in 10-14 days post-op. Diet There are no dietary restrictions. Eat healthy, high-fiber foods. Drink 6-8 glasses of liquid each day. This will assist in keeping your bowels regular. Pain Management You may take Tylenol or acetaminophen. Any pain prescription medication ordered should be taken as prescribed for moderate to severe pain. Do not take any NSAIDS (Aleve, Motrin, Advil, Naproxen, etc) for 3 months unless otherwise instructed by your surgeon. Call Dr French for any of the following: Severe pain not relieved by medication Fever of 101 or higher Excessive bleeding or drainage on dressing Inability to urinate Any chest pain or shortness of breath, seek Emergency Care. Call the office to confirm a post-operative appointment for 2-3 weeks post-op Lj Ravi MD [facility] [place] [address] iSTOP This report was requested by: Wili Mcclelland | Reference #: [id number] 12/29/2018 Tamadol hcl 50 mg / 60 tablets dispensed / Feliciano Alonzo MD Disposition: RETIREMENT FACILITY - Home Medications Comprehensive Discharge Medication List: Ambulatory Orders Bimatoprost [Lumigan] 2.5 ml OD HS 12/13/15 Cyclobenzaprine HCl [Flexeril -] 10 mg PO TID PRN 12/13/15 Metoprolol Succinate [Toprol XL -] 1 tab PO DAILY 12/13/15 Atorvastatin Ca [Lipitor] 20 mg PO HS tablet 12/26/15 Aspirin [ASA -] 81 mg PO DAILY 05/06/17 Insulin (Novolog 70/30) [Novolog Mix 70/30 Flexpen -] 30 units SQ BID 05/06/17 Sertraline HCl 50 mg PO DAILY 05/06/17 Brimonidine Tartrate/Timolol [Combigan Eye Drops] 5 ml OD BID 01/23/19 Cetirizine HCl [Zyrtec -] 10 mg PO DAILY 01/23/19 Dulaglutide [Trulicity] 1.5 mg SQ WEEKLY 01/23/19 Furosemide 20 mg PO DAILY 01/23/19 Losartan Potassium 50 mg PO DAILY 01/23/19 Omeprazole 20 mg PO DAILY 01/23/19 Pramipexole Di-HCl [Mirapex] 0.5 mg PO HS 01/23/19 metFORMIN HCL [Glucophage -] 500 mg PO BID 01/23/19"
--- NOTE | 2019-01-29 16:39 | PN ---
Progress Note, Physician History of Present Illness: Pt alert, afebrile. No new complaints. - Current Medication List Current Medications: Active Medications Aspirin (Asa -) 81 mg PO DAILY [facility] Last Admin: 01/29/19 10:10 Dose: 81 mg Atorvastatin Calcium (Lipitor -) 20 mg PO HS [facility] Last Admin: 01/28/19 21:59 Dose: 20 mg Brimonidine Tartrate (Alphagan 0.2% -) 1 drop OU BID [facility] Last Admin: 01/29/19 10:16 Dose: 1 drop Cyclobenzaprine HCl (Flexeril -) 10 mg PO TID PRN PRN Reason: MUSCLE SPASMS Dexamethasone Sodium Phosphate (Decadron Injection -) 8 mg IVPB BID [facility] Last Admin: 01/29/19 10:14 Dose: 8 mg Diphenhydramine HCl (Benadryl Injection -) 12.5 mg IVPUSH ONCE PRN PRN Reason: FOR ITCHING Furosemide (Lasix -) 20 mg PO DAILY [facility] Last Admin: 01/29/19 10:10 Dose: 20 mg Heparin Sodium (Porcine) (Heparin -) 5,000 unit SQ Q8H-IV [facility] Last Admin: 01/29/19 10:17 Dose: 5,000 unit Cefazolin Sodium (Ancef 1 Gm Premixed Ivpb -) 1 gm in 50 mls @ 100 mls/hr IVPB Q8H-IV [facility] Last Admin: 01/29/19 10:14 Dose: 100 mls/hr Sodium Chloride (Normal Saline -) 1,000 mls @ 75 mls/hr IV ASDIR [facility] Last Admin: 01/29/19 06:07 Dose: 75 mls/hr Insulin Aspart (Novolog Vial Sliding Scale -) 1 vial SQ TIDAC [facility]; Protocol Last Admin: 01/29/19 11:30 Dose: 10 units Latanoprost (Xalatan 0.005% Eye Drops -) 1 drop OD HS [facility] Last Admin: 01/28/19 22:01 Dose: 1 drop Loratadine (Claritin -) 10 mg PO DAILY [facility] Last Admin: 01/29/19 10:10 Dose: 10 mg Losartan Potassium (Cozaar -) 50 mg PO DAILY [facility] Last Admin: 01/29/19 10:10 Dose: 50 mg Metoprolol Succinate (Toprol Xl -) 25 mg PO DAILY [facility] Last Admin: 01/29/19 10:13 Dose: 25 mg Ondansetron HCl (Zofran Injection) 4 mg IVPUSH Q4H PRN PRN Reason: NAUSEA AND/OR VOMITING Ondansetron HCl (Zofran Injection) 4 mg IVPUSH Q6H PRN PRN Reason: NAUSEA Pantoprazole Sodium (Protonix -) 20 mg PO DAILY [facility] Last Admin: 01/29/19 10:13 Dose: 20 mg Pramipexole Dihydrochloride (Mirapex -) 0.5 mg PO HS [facility] Last Admin: 01/28/19 22:03 Dose: 0.5 mg Promethazine HCl (Phenergan Injection -) 12.5 mg IVPB Q6H PRN PRN Reason: NAUSEA AND/OR VOMITING Sertraline HCl (Zoloft -) 50 mg PO DAILY [facility] Last Admin: 01/29/19 10:13 Dose: 50 mg Timolol Maleate (Timoptic 0.5%) 1 drop OU BID [facility] Last Admin: 01/29/19 10:17 Dose: 1 drop - Objective Vital Signs: Vital Signs Temperature 97.9 F 01/29/19 14:16 Pulse Rate 103 H 01/29/19 14:16 Respiratory Rate 01/29/19 14:16 Blood Pressure 140/90 01/29/19 14:16 O2 Sat by Pulse Oximetry (%) 98 01/28/19 22:00 Constitutional: Yes: No Distress, Calm Neck: Yes: Other (cervical collar) Cardiovascular: Yes: Regular Rate and Rhythm Respiratory: Yes: Regular Gastrointestinal: Yes: Normal Bowel Sounds, Soft Neurological: Yes: Alert, Oriented Labs: CBC, BMP 01/28/19 08:25 01/28/19 08:25 INR, PTT INR 1.02 (0.83-1.09) 01/24/19 07:50 Problem List - Problems (1) Cervical myelopathy Code(s): G95.9 - DISEASE OF SPINAL CORD, UNSPECIFIED (2) DJD (degenerative joint disease) Code(s): M19.90 - UNSPECIFIED OSTEOARTHRITIS, UNSPECIFIED SITE Qualifiers: Osteoarthritis location: spine Spinal region: lumbar Spinal osteoarthritis complication: with myelopathy Qualified Code(s): M47.16 - Other spondylosis with myelopathy, lumbar region (3) Diabetes Code(s): E11.9 - TYPE 2 DIABETES MELLITUS WITHOUT COMPLICATIONS Qualifiers: Diabetes mellitus type: type 2 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: with custodial use Diabetes mellitus complication status: with unspecified complications Qualified Code(s): E11.8 - Type 2 diabetes mellitus with unspecified complications; 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 (4) GERD (gastroesophageal reflux disease) Code(s): K21.9 - GASTRO-ESOPHAGEAL REFLUX DISEASE WITHOUT ESOPHAGITIS Qualifiers: Esophagitis presence: without esophagitis Qualified Code(s): K21.9 - Gastro -esophageal reflux disease without esophagitis (5) HLD (hyperlipidemia) Code(s): E78.5 - HYPERLIPIDEMIA, UNSPECIFIED (6) HTN (hypertension) Code(s): I10 - ESSENTIAL (PRIMARY) HYPERTENSION Qualifiers: Hypertension type: essential hypertension Qualified Code(s): I10 - Essential (primary) hypertension (7) History of lumbar fusion Code(s): Z98.1 - ARTHRODESIS STATUS (8) S/P lumbar fusion Code(s): Z98.1 - ARTHRODESIS STATUS (9) Thoracic aortic aneurysm Code(s): I71.2 - THORACIC AORTIC ANEURYSM, WITHOUT RUPTURE Assessment/Plan s/p Cervical corpectomy/Cage placement/fusion -- stable off antibiotics plan is for d/c tomorrow
[2019-01-29] MEDS: ATORVASTATIN CA 20 MG TABLET (FP) PO SCH (23:00)
[2019-01-29] MEDS: LATANOPROST 0.005% OPHTH SOLN 2.5ML BOTTLE OD SCH (23:10)
[2019-01-29] MEDS: PRAMIPEXOLE DIHYDROCHLORIDE 0.5 MG TABLET PO SCH (23:19)
[2019-01-30] MEDS: CEFAZOLIN 1 GM/D5W 1 GM/50 ML BAG IVPB SCH (01:42)
[2019-01-30] MEDS: HEPARIN NA (PORCINE) 5,000 UNITS/ML 1ML VIAL SQ SCH ×2 (01:43→10:34)
[2019-01-30] MEDS: INSULIN SLIDING SCALE (NOVOLOG) 1 VIAL SQ SCH ×2 (07:22→12:45)
--- NOTE | 2019-01-30 08:05 | PN ---
Progress Note (short form) - Note Progress Note: 68yo M s/p C2-C7 fusion, pt seen and examined at bedside. Pt states that his pain is well controlled and that he is anxious to go home. Pt denies fever, chills, n/v. Pt denies headaches, weakness, numbness. Last Vital Signs Temp Pulse Resp BP Pulse Ox 98 F 102 H 20 140/90 98 01/30/19 02:00 01/30/19 02:00 01/30/19 02:00 01/30/19 02:00 01/29/19 22:00 CBC, BMP 01/28/19 08:25 01/28/19 08:25 PE: Gen: A&O x3 Resp: breathing comfortably Neck: incision is clean with no erythema or discharge, posterior drain in place with serosanguinous drainage, Ext: no weakness or numbness. Problem List - Problems (1) Cervical myelopathy Assessment/Plan: Plan -pt appears to be doing well, posterior drain removed at bedside. -pt will be cleared to be discharged from neurosurgery standpoint, -pt should follow up with Dr. Ravi, in 2 weeks as outpatient. Code(s): G95.9 - DISEASE OF SPINAL CORD, UNSPECIFIED
[2019-01-30] MEDS ORDERED: oxyCODONE HCL 5 MG TABLET PO PRN ×2 (09:00)
[2019-01-30] MEDS: TIMOLOL 0.5% OPHTHALMIC SOL 5 ML BOTTLE OU SCH (10:00)
[2019-01-30] MEDS: FUROSEMIDE 20 MG TABLET (FP) PO SCH (10:34)
[2019-01-30] MEDS: ASPIRIN 81 MG CHEWABLE TABLETS PO SCH (10:34)
[2019-01-30] MEDS: SERTRALINE HCL 50 MG TABLET (FP) PO SCH (10:34)
[2019-01-30] MEDS: LORATADINE 10 MG TABLET PO SCH (10:55)
[2019-01-30] MEDS: metoPROLOL SUCCINATE 25 MG TAB.SR.24H (FP) PO SCH (10:55)
[2019-01-30] MEDS: BRIMONIDINE TARTRATE 0.2% OPHTHALMIC 5 ML BOTTLE OU SCH (10:56)
[2019-01-30] MEDS: LOSARTAN POTASSIUM 50 MG TABLET (FP) PO SCH (10:56)
[2019-01-30] MEDS: PANTOPRAZOLE 20 MG TABLET (FP) PO SCH (10:56)
[2019-01-30] MEDS ORDERED: DEXAMETHASONE SOD PHOSPHATE 4 MG/1 ML VIAL IVPB ONE (11:00)
--- NOTE | 2019-01-30 12:28 | PN ---
Progress Note, Physician Chief Complaint: Disc herniation c5-6 and c6-7 Cervical Spondylotic Myelopathy s/p anterior C6 corpectomy with CAGE placement and plating History of Present Illness: Previous notes and events reviewed awake and alert NAD denies complaints of pain, SOB being discharged to SNF today for rehab - Current Medication List Current Medications: Active Medications Aspirin (Asa -) 81 mg PO DAILY [facility] Last Admin: 01/30/19 10:34 Dose: 81 mg Atorvastatin Calcium (Lipitor -) 20 mg PO HS [facility] Last Admin: 01/29/19 23:00 Dose: 20 mg Brimonidine Tartrate (Alphagan 0.2% -) 1 drop OU BID [facility] Last Admin: 01/30/19 10:56 Dose: 1 drop Cyclobenzaprine HCl (Flexeril -) 10 mg PO TID PRN PRN Reason: MUSCLE SPASMS Diphenhydramine HCl (Benadryl Injection -) 12.5 mg IVPUSH ONCE PRN PRN Reason: FOR ITCHING Furosemide (Lasix -) 20 mg PO DAILY [facility] Last Admin: 01/30/19 10:34 Dose: 20 mg Heparin Sodium (Porcine) (Heparin -) 5,000 unit SQ Q8H-IV [facility] Last Admin: 01/30/19 10:34 Dose: 5,000 unit Sodium Chloride (Normal Saline -) 1,000 mls @ 75 mls/hr IV ASDIR [facility] Last Admin: 01/29/19 20:02 Dose: Not Given Insulin Aspart (Novolog Vial Sliding Scale -) 1 vial SQ TIDAC [facility]; Protocol Last Admin: 01/30/19 07:22 Dose: 4 units Latanoprost (Xalatan 0.005% Eye Drops -) 1 drop OD [facility] Last Admin: 01/29/19 23:10 Dose: 1 drop Loratadine (Claritin -) 10 mg PO DAILY [facility] Last Admin: 01/30/19 10:55 Dose: 10 mg Losartan Potassium (Cozaar -) 50 mg PO DAILY [facility] Last Admin: 01/30/19 10:56 Dose: 50 mg Metoprolol Succinate (Toprol Xl -) 25 mg PO DAILY [facility] Last Admin: 01/30/19 10:55 Dose: 25 mg Ondansetron HCl (Zofran Injection) 4 mg IVPUSH Q4H PRN PRN Reason: NAUSEA AND/OR VOMITING Ondansetron HCl (Zofran Injection) 4 mg IVPUSH Q6H PRN PRN Reason: NAUSEA Oxycodone HCl (Roxicodone -) 5 mg PO Q4H PRN PRN Reason: PAIN LEVEL 1-5 Oxycodone HCl (Roxicodone -) 10 mg PO Q4H PRN PRN Reason: PAIN LEVEL 6-10 Pantoprazole Sodium (Protonix -) 20 mg PO DAILY [facility] Last Admin: 01/30/19 10:56 Dose: 20 mg Pramipexole Dihydrochloride (Mirapex -) 0.5 mg PO HS [facility] Last Admin: 01/29/19 23:19 Dose: 0.5 mg Promethazine HCl (Phenergan Injection -) 12.5 mg IVPB Q6H PRN PRN Reason: NAUSEA AND/OR VOMITING Sertraline HCl (Zoloft -) 50 mg PO DAILY [facility] Last Admin: 01/30/19 10:34 Dose: 50 mg Timolol Maleate (Timoptic 0.5%) 1 drop OU BID [facility] Last Admin: 01/30/19 10:00 Dose: 1 drop - Objective Vital Signs: Vital Signs Temperature 98 F 01/30/19 02:00 Pulse Rate 102 H 01/30/19 02:00 Respiratory Rate 20 01/30/19 02:00 Blood Pressure 140/90 01/30/19 02:00 O2 Sat by Pulse Oximetry (%) 98 01/29/19 22:00 Constitutional: Yes: No Distress, Calm Eyes: Yes: Conjunctiva Clear HENT: Yes: Atraumatic Neck: Yes: Other (c-collar) Cardiovascular: Yes: Regular Rate and Rhythm Respiratory: Yes: Regular, CTA Bilaterally Gastrointestinal: Yes: Normal Bowel Sounds, Soft Musculoskeletal: Yes: Muscle Weakness Extremities: Yes: WNL Edema: No Wound/Incision: Yes: Dressing Dry and Intact Neurological: Yes: Alert, Oriented Psychiatric: Yes: Alert, Oriented Labs: CBC, BMP 01/28/19 08:25 01/28/19 08:25 INR, PTT INR 1.02 (0.83-1.09) 01/24/19 07:50 Problem List - Problems (1) Cervical myelopathy Assessment/Plan: -neurosurgery on board -s/p anterior c6 corpectomy with CAGE placement and plating, c2-7 laminectomy with posterior fusion -continue with c-collar 23h/day -C spine CT scan results reviewed -SNF for rehab Code(s): G95.9 - DISEASE OF SPINAL CORD, UNSPECIFIED (2) DJD (degenerative joint disease) Assessment/Plan: -pain management -corrective surgery performed -s/p anterior c6 corpectomy with CAGE placement and plating, c2-7 laminectomy with posterior fusion -continue with c-collar 23h/day Code(s): M19.90 - UNSPECIFIED OSTEOARTHRITIS, UNSPECIFIED SITE Qualifiers: Osteoarthritis location: spine Spinal region: lumbar Spinal osteoarthritis complication: with myelopathy Qualified Code(s): M47.16 - Other spondylosis with myelopathy, lumbar region (3) Diabetes Assessment/Plan: -[facility] -[facility] Code(s): E11.9 - TYPE 2 DIABETES MELLITUS WITHOUT COMPLICATIONS Qualifiers: Diabetes mellitus type: type 2 Diabetes mellitus manager terminal insulin use: with manager terminal use Diabetes mellitus complication status: with unspecified complications Qualified Code(s): E11.8 - Type 2 diabetes mellitus with unspecified complications; Z79.4 - [facility]PC (current) use of insulin (4) GERD (gastroesophageal reflux disease) Assessment/Plan: -continue with pantoprazole Code(s): K21.9 - GASTRO-ESOPHAGEAL REFLUX DISEASE WITHOUT ESOPHAGITIS Qualifiers: Esophagitis presence: without esophagitis Qualified Code(s): K21.9 - Gastro -esophageal reflux disease without esophagitis (5) HLD (hyperlipidemia) Assessment/Plan: -continue with atorvastatin Code(s): E78.5 - HYPERLIPIDEMIA, UNSPECIFIED (6) HTN (hypertension) Assessment/Plan: -continue with Losartan Code(s): I10 - ESSENTIAL (PRIMARY) HYPERTENSION Qualifiers: Hypertension type: essential hypertension Qualified Code(s): I10 - Essential (primary) hypertension Assessment/Plan see problem list dvt ppx SNF for rehab on discharge
[2019-01-30] MEDS ORDERED: INSULIN (NOVOLOG) ASPART 100 UNITS/ML 10ML VIAL ONE (12:43)
--- NOTE | 2019-01-30 12:46 | PN ---
Progress Note, Physician History of Present Illness: patient stable no new issues in collar still no complaints - Current Medication List Current Medications: Active Medications Aspirin (Asa -) 81 mg PO DAILY [facility] Last Admin: 01/30/19 10:34 Dose: 81 mg Atorvastatin Calcium (Lipitor -) 20 mg PO HS [facility] Last Admin: 01/29/19 23:00 Dose: 20 mg Brimonidine Tartrate (Alphagan 0.2% -) 1 drop OU BID [facility] Last Admin: 01/30/19 10:56 Dose: 1 drop Cyclobenzaprine HCl (Flexeril -) 10 mg PO TID PRN PRN Reason: MUSCLE SPASMS Diphenhydramine HCl (Benadryl Injection -) 12.5 mg IVPUSH ONCE PRN PRN Reason: FOR ITCHING Furosemide (Lasix -) 20 mg PO DAILY [facility] Last Admin: 01/30/19 10:34 Dose: 20 mg Heparin Sodium (Porcine) (Heparin -) 5,000 unit SQ Q8H-IV [facility] Last Admin: 01/30/19 10:34 Dose: 5,000 unit Sodium Chloride (Normal Saline -) 1,000 mls @ 75 mls/hr IV ASDIR [facility] Last Admin: 01/29/19 20:02 Dose: Not Given Insulin Aspart (Novolog Vial Sliding Scale -) 1 vial SQ TIDAC [facility]; Protocol Last Admin: 01/30/19 07:22 Dose: 4 units Latanoprost (Xalatan 0.005% Eye Drops -) 1 drop OD HS [facility] Last Admin: 01/29/19 23:10 Dose: 1 drop Loratadine (Claritin -) 10 mg PO DAILY [facility] Last Admin: 01/30/19 10:55 Dose: 10 mg Losartan Potassium (Cozaar -) 50 mg PO DAILY [facility] Last Admin: 01/30/19 10:56 Dose: 50 mg Metoprolol Succinate (Toprol Xl -) 25 mg PO DAILY [facility] Last Admin: 01/30/19 10:55 Dose: 25 mg Ondansetron HCl (Zofran Injection) 4 mg IVPUSH Q4H PRN PRN Reason: NAUSEA AND/OR VOMITING Ondansetron HCl (Zofran Injection) 4 mg IVPUSH Q6H PRN PRN Reason: NAUSEA Oxycodone HCl (Roxicodone -) 5 mg PO Q4H PRN PRN Reason: PAIN LEVEL 1-5 Oxycodone HCl (Roxicodone -) 10 mg PO Q4H PRN PRN Reason: PAIN LEVEL 6-10 Pantoprazole Sodium (Protonix -) 20 mg PO DAILY [facility] Last Admin: 01/30/19 10:56 Dose: 20 mg Pramipexole Dihydrochloride (Mirapex -) 0.5 mg PO HS [facility] Last Admin: 01/29/19 23:19 Dose: 0.5 mg Promethazine HCl (Phenergan Injection -) 12.5 mg IVPB Q6H PRN PRN Reason: NAUSEA AND/OR VOMITING Sertraline HCl (Zoloft -) 50 mg PO DAILY [facility] Last Admin: 01/30/19 10:34 Dose: 50 mg Timolol Maleate (Timoptic 0.5%) 1 drop OU BID [facility] Last Admin: 01/30/19 10:00 Dose: 1 drop - Objective Vital Signs: Vital Signs Temperature 98 F 01/30/19 02:00 Pulse Rate 102 H 01/30/19 02:00 Respiratory Rate 20 01/30/19 02:00 Blood Pressure 140/90 01/30/19 02:00 O2 Sat by Pulse Oximetry (%) 98 01/29/19 22:00 Constitutional: Yes: No Distress, Calm HENT: Yes: Other (cervical collar) Cardiovascular: Yes: Regular Rate and Rhythm Respiratory: Yes: Regular, CTA Bilaterally Gastrointestinal: Yes: Normal Bowel Sounds, Soft Musculoskeletal: Yes: WNL Extremities: Yes: WNL Neurological: Yes: Alert, Oriented, Other Psychiatric: Yes: Alert, Oriented Labs: CBC, BMP 01/28/19 08:25 01/28/19 08:25 INR, PTT INR 1.02 (0.83-1.09) 01/24/19 07:50 Assessment/Plan Problem List - Problems (1) Cervical myelopathy Code(s): G95.9 - DISEASE OF SPINAL CORD, UNSPECIFIED (2) DJD (degenerative joint disease) Code(s): M19.90 - UNSPECIFIED OSTEOARTHRITIS, UNSPECIFIED SITE Qualifiers: Osteoarthritis location: spine Spinal region: lumbar Spinal osteoarthritis complication: with myelopathy Qualified Code(s): M47.16 - Other spondylosis with myelopathy, lumbar region (3) Diabetes Code(s): E11.9 - TYPE 2 DIABETES MELLITUS WITHOUT COMPLICATIONS Qualifiers: Diabetes mellitus type: type 2 Diabetes mellitus senior living insulin use: with senior living use Diabetes mellitus complication status: with unspecified complications Qualified Code(s): E11.8 - Type 2 diabetes mellitus with unspecified complications; 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 of insulin (4) GERD (gastroesophageal reflux disease) Code(s): K21.9 - GASTRO-ESOPHAGEAL REFLUX DISEASE WITHOUT ESOPHAGITIS Qualifiers: Esophagitis presence: without esophagitis Qualified Code(s): K21.9 - Gastro -esophageal reflux disease without esophagitis (5) HLD (hyperlipidemia) Code(s): E78.5 - HYPERLIPIDEMIA, UNSPECIFIED (6) HTN (hypertension) Code(s): I10 - ESSENTIAL (PRIMARY) HYPERTENSION Qualifiers: Hypertension type: essential hypertension Qualified Code(s): I10 - Essential (primary) hypertension (7) History of lumbar fusion Code(s): Z98.1 - ARTHRODESIS STATUS (8) S/P lumbar fusion Code(s): Z98.1 - ARTHRODESIS STATUS (9) Thoracic aortic aneurysm Code(s): I71.2 - THORACIC AORTIC ANEURYSM, WITHOUT RUPTURE Assessment/Plan stable off of abx continue current mgmt patient doign well
[2019-01-30 13:32] VITALS: BP 148/94; PULSE 110; TEMP 98.7
--- NOTE | 2019-01-31 08:46 | PN ---
Progress Note (short form) - Note Progress Note: Surgery POD#7 anterior C6 corpectomy with CAGE placement and plating. C2 thru C7 laminectomy with posterior fusion. Patient feels well and no acute events overnight. He has been OOB with PT and his ambulation continues to improve. He still has pain over the spine but states the radicular symptoms continue to improve. He is tolerating his diet and denies any CP, SOB, N/V/D fever, chills or headaches. Vital Signs Temp 98.7 F 01/30/19 10:00 Pulse 110 H 01/30/19 10:00 Resp 18 01/30/19 10:00 BP 148/94 01/30/19 10:00 Pulse Ox 98 01/29/19 22:00 Intake & Output 01/30/19 01/30/19 01/31/19 11:59 23:59 11:59 Intake Total 300 Output Total 590 Balance -590 300 Weight 185 lb Intake: IV 250 Normal Saline - 1,000 ml 250 @ 75 mls/hr IV ASDIR [facility] Rx#:[id number] IVPB 50 Output: Drainage 40 Posterior 40 Urine 550 Void 550 Other: Voiding Method Urinal # Unmeasured Voids Void 1 Weight Measurement Method Built in [facility] PE A&Ox3, NAD Unlabored resp on 2L NC HEENT: NC/AT,no facial droop, tongue midline on protrusion. Posterior dressing- aquacell dressing C/D/I with surrounding tissue intact, no focal edema or tracking erythema, no active d/c, posterior drain to bile bag with SS d/c b/l UE information assurance specialist strength 5/5, 5/5 thumbs up and moving all extremities without limitation. B/L LE compartments soft, supple and non-tender with active dorsi/plantar flexion. Problem List - Problems (1) Cervical myelopathy Code(s): G95.9 - DISEASE OF SPINAL CORD, UNSPECIFIED
--- NOTE | 2019-02-03 16:32 | SURG ---
Surgery Produce Associate Note Produce Associate: Chiquis Pelaez PA-C Date of Service: 01/24/19 Diagnosis: Cervical Spondylotic myelopathy with kyphosis Procedure: 1. Exploration of spinal fusion 2. Local autograft 3. Posterior Segmental instrumentation C3-C7(technically challenging) 4. Removal, Posterior Segmental Instrumentation 5. C3 Laminectomy 6. C4 Laminectomy 7. C5 Laminectomy 8. C6 Laminectomy 9. C7 Laminectomy 10. C3-4 Posterior/Lateral Arthrodesis 11. C4-5 Posterior/Lateral Arthrodesis 12. C5-6 Posterior/Lateral Arthrodesis 13. C6-7 Posterior/Lateral Arthrodesis 14. Bilateral Soft Tissue advancement flaps (50cm2) 15. Taoism of Lordosis 16. Repair of Durotomy I was present for the entirety of the operative procedure. For further detail, please refer to operative report.
--- NOTE | 2019-02-03 16:38 | SURG ---
Surgery Forgesmith Note Forgesmith: Chiquis Pelaez PA-C Date of Service: 01/24/19 Diagnosis: Cervical Spondylotic Myelopathy with kyphosis Procedure: 1. Interbody Cage(Corpectomy) 2. C6 Corpectomy with resection of osteophytes and posterior longitudinal ligament 3. C5 Caudal Hemicorpectomy with resection of osteophytes and posterior longitudinal ligament 4. Anterior instrumentation of C5-C7(technically challenging) 5. microdissection 6. C5-6 Arthrodesis 7. C6-7 Arthrodesis 8. Local autograft 9. Deformity correction(episcopalian of lordosis) I was present for the entirety of the operative procedure. For further detail, please refer to operative report. Visit type - Case Type Case Type: Scheduled - Emergency Emergency Visit: No - New patient This patient is new to me today: Yes Date on this admission: 02/03/19
== END 2019-01-30 13:51 | DRG 453 ==
LOC: JSAMEDAYSX 06:28 → JICU 20:26 → J8W 01-26 13:30
PROVIDERS: ADMIT Internal Medicine; ATTEND Family Medicine
PROC: 0RG2071 Fusion of 2 or more Cervical Vertebral Joints with Autologous Tissue Substitute, Posterior Approach, Posterior Column, Open Approach (ICD-10-PCS; 2019-01-24)
PROC: 0RG20AJ Fusion of 2 or more Cervical Vertebral Joints with Interbody Fusion Device, Posterior Approach, Anterior Column, Open Approach (ICD-10-PCS; 2019-01-24)
PROC: 0PB30ZZ Excision of Cervical Vertebra, Open Approach (ICD-10-PCS; 2019-01-24)
PROC: 0RP104Z Removal of Internal Fixation Device from Cervical Vertebral Joint, Open Approach (ICD-10-PCS; 2019-01-24)
PROC: 01N10ZZ Release Cervical Nerve, Open Approach (ICD-10-PCS; 2019-01-24)
PROC: 00QT0ZZ Repair Spinal Meninges, Open Approach (ICD-10-PCS; 2019-01-24)
PROC: 0JX70ZB Transfer Back Subcutaneous Tissue and Fascia with Skin and Subcutaneous Tissue, Open Approach (ICD-10-PCS; 2019-01-24)
PROC: B01BZZZ Fluoroscopy of Spinal Cord (ICD-10-PCS; 2019-01-24)
PROC: 0BH17EZ Insertion of Endotracheal Airway into Trachea, Via Natural or Artificial Opening (ICD-10-PCS; 2019-01-24)
PROC: 5A1935Z Respiratory Ventilation, Less than 24 Consecutive Hours (ICD-10-PCS; 2019-01-24)
PROC: 5A12012 Performance of Cardiac Output, Single, Manual (ICD-10-PCS; 2019-01-24)
PROC: 0RG20A0 Fusion of 2 or more Cervical Vertebral Joints with Interbody Fusion Device, Anterior Approach, Anterior Column, Open Approach (ICD-10-PCS; principal; 2019-01-24 08:00)
DX: M47.12 Other spondylosis with myelopathy, cervical region (principal); J96.01 Acute respiratory failure with hypoxia; I24.8 Other forms of acute ischemic heart disease; G95.9 Disease of spinal cord, unspecified; G97.41 Accidental puncture or laceration of dura during a procedure; M40.202 Unspecified kyphosis, cervical region; E11.9 Type 2 diabetes mellitus without complications; K21.9 Gastro-esophageal reflux disease without esophagitis; E78.5 Hyperlipidemia, unspecified; I10 Essential (primary) hypertension; E66.9 Obesity, unspecified; Z68.30 Body mass index [BMI] 30.0-30.9, adult; F32.9 Major depressive disorder, single episode, unspecified; Y83.9 Surgical procedure, unspecified as the cause of abnormal reaction of the patient, or of later complication, without mention of misadventure at the time of the procedure
CPT/HCPCS: 36415; 71045-TC-FY; 71275-TC; 72125-TC; 76000-TC-FY; 80048; 80053; 82947; 82962; 83735; 84100; 84484; 85025; 85027; 85610; 86850; 86900; 86901; 87040; 93005; 93010; 94760; 97116-GP; 97161-GP; J0131; J1644; J7030

== ENCOUNTER 2019-03-20 14:36 | Emergency (ER) | payer OTHER, BC ==
[2019-03-20 15:14] VITALS: BP 110/88; PULSE 107; TEMP 98.4; BMI 28.4
--- NOTE | 2019-03-20 16:11 | PDOC ---
History of Present Illness - General Chief Complaint: Blood Sugar Problem Stated Complaint: BLOOD SUGAR LOW Time Seen by Provider: 03/20/19 16:10 History Source: Patient, Spouse Exam Limitations: No Limitations - History of Present Illness Initial Comments: 03/20/19 16:13 67 yo M with PMhx of HTN, HLD, DM, and multiple spinal surgeries presents to ER for low blood sugars. He states when he woke up this morning he was very shaky and he was experiencing vision disturbance. He checked his sugars and he states it read 6. His saw him and noticed he did not look well and gave him something to eat and checked his sugars again and it read 48. This prompted the trip to ER. Here in ER the BG was 84. He states that he takes 1000mg metformin, Trulicity on Tuesdays, and Novolog 70/30 60 units bid. When i spoke to him on how he takes his insulin he told me that he takes his insulin twice a day with no adjustments. If his sugars are greater than 150 he takes all 60 units. He denies CP,OWEN, SOB, abdominal pain, nausea vomiting fever or chills. Timing/Duration: 4-6 hours Severity: moderate Past History - Past Medical History Allergies/Adverse Reactions: Allergies Allergy/AdvReac Type Severity Reaction Status Date / Time codeine Allergy Intermediate "stomach Verified 03/20/19 15:14 hurts and itchy" morphine Allergy Unknown "itchy" Verified 03/20/19 15:14 Home Medications: Ambulatory Orders Bimatoprost [Lumigan] 1 drop OD HS 12/13/15 Cyclobenzaprine HCl [Flexeril -] 10 mg PO TID PRN 12/13/15 Metoprolol Succinate [Toprol XL -] 1 tab PO DAILY 12/13/15 Atorvastatin Ca [Lipitor] 20 mg PO HS tablet 12/26/15 Aspirin [ASA -] 81 mg PO DAILY 05/06/17 Insulin (Novolog 70/30) [Novolog Mix 70/30 Flexpen -] 60 units SQ BID 05/06/17 Sertraline HCl 50 mg PO DAILY 05/06/17 Cetirizine HCl [Zyrtec -] 10 mg PO DAILY 01/23/19 Furosemide 20 mg PO DAILY 01/23/19 Losartan Potassium 50 mg PO DAILY 01/23/19 Pramipexole Di-HCl [Mirapex] 0.5 mg PO HS 01/23/19 metFORMIN HCL [Glucophage -] 500 mg PO BID 01/23/19 Brimonidine Tartrate [Alphagan 0.2% -] 1 drop OU BID drops 01/29/19 Timolol 0.5% [Timoptic 0.5%] 1 drop OU BID drops 01/29/19 Docusate Sodium [Colace -] 100 mg PO DAILY 03/20/19 Insulin Sliding Scale [Novolog Vial Sliding Scale -] 0 units SQ TIDAC PRN Pregabalin [Lyrica -] 150 mg PO TID 03/20/19 Ranitidine HCl [Zantac] 150 mg PO HS 03/20/19 Anemia: No Asthma: No Cancer: No Cardiac Disorders: Yes ("a little hole in heart") CVA: No COPD: No CHF: No Dementia: No Diabetes: Yes GI Disorders: No Disorders: No HTN: Yes Hypercholesterolemia: Yes Liver Disease: No Seizures: No Thyroid Disease: No - Surgical History Neurologic Surgery: (low back) Orthopedic Surgery: Yes (Back sx 2015) - Immunization History Td Vaccination: No TDAP Vaccination: No Immunization Up to Date: No - Suicide/Smoking/Psychosocial Hx Smoking History: Unknown if ever smoked Have you smoked in the past 12 months: No If you are a former smoker, when did you quit?: 2004 Information on smoking cessation initiated: No Hx Alcohol Use: No Drug/Substance Use Hx: No Substance Use Type: None Hx Substance Use Treatment: No *Physical Exam - Vital Signs Last Vital Signs Temp Pulse Resp BP Pulse Ox 98.4 F 107 H 18 110/88 98 03/20/19 15:11 03/20/19 15:11 03/20/19 15:11 03/20/19 15:11 03/20/19 15:11 *DC/Admit/Observation/Transfer Diagnosis at time of Disposition: Hypoglycemia - Discharge Dispostion Disposition: HOME Condition at time of disposition: Good - Referrals Referrals: Feliciano Alonzo MD, MD [Primary Care Provider] - - Patient Instructions Printed Discharge Instructions: DI for Hypoglycemia Additional Instructions: Your blood sugar was extremely low today. Low blood sugar can cause confusion, coma, seizures even . Make sure you eat sugar foods tonight before bed and continue to monitor your sugar at home. Take only one dose of your Novolog until evaluated by your primary care doctor. You must make an appointment to see Dr. Alonzo in the next 3 days. Your care is not complete until you are evaluated by Dr. Alonzo Return to the Emergency Department for any new/worsening/concerning symptoms including confusion, cold sweats. - Post Discharge Activity
[2019-03-20] MEDS ORDERED: DEXTROSE 50%-WATER - 25 GM/50 ML VIAL IVPUSH ONE ×2 (17:28→20:07)
[2019-03-20] MEDS ORDERED: DEXTROSE 50%-WATER 25 GM/50 ML DISP.SYRIN ONE (17:52)
--- NOTE | 2019-03-20 19:02 | PDOC ---
*Physical Exam - Vital Signs Last Vital Signs Temp Pulse Resp BP Pulse Ox 98.4 F 107 H 18 110/88 98 03/20/19 15:11 03/20/19 15:11 03/20/19 15:11 03/20/19 15:11 03/20/19 15:11 - Physical Exam General Appearance: Yes: Nourished, Appropriately Dressed HEENT: positive: Normal Voice, Hearing Grossly Normal Neck: positive: Trachea midline, Supple, Other (cervical collar in place) Integumentary: positive: Normal Color, Dry, Warm Neurologic: positive: counter weigher II-XII NML intact, Fully Oriented, Alert ED Treatment Course - ADDITIONAL ORDERS Additional order review: Laboratory Results 03/20/19 03/20/19 17:49 16:02 POC Glucometer 80 84 03/20/19 03/20/19 17:49 16:02 POC Glucometer 80 84 Medical Decision Making - Medical Decision Making 03/20/19 19:[address] Catherine (Resident) and under the care of Dr. Wiggins ( Attending) David Pollard is a 67 year old male who presents with hypoglycemia. Blood sugar 84 @ presentation. Possibly overdosed anti-glycemic with Novolog 70/30 ( 60 units BID) + Metformin (500 BID) + Trulicity (weekly). BS 84 at presentation. Will encourage PO intake, recheck sugars and discuss w/patient's PMD, Dr. Alonzo. Likely disposition is home with insulin dosage adjustment. 03/20/19 19:02 Patient assessed @ bedside. Well appearing, eating [employer]. Family @ bedside 03/20/19 19:[address] Alonzo patient's PMD 03/20/19 20:07 Second call placed to Dr. Alonzo 03/20/19 20:37 Repeat fingerstick 164 Patient refusing D50 and requesting discharge home Will family court counsellor patient to reduce Novolog to QD until evaluated by Dr. Alonzo 03/20/19 21:00 Patient discharged home with instruction to take insulin daily instead of BID until evaluated by Dr. Alonzo. Patient and patient's counseled on medical dangers of hypoglycemia and patient encourage to increase PO intake before bedtime and to call Dr. Alonzo in the a.m. for further evaluation. Patient clinically stable for discharge home. I explained the final diagnosis and follow-up care to the patient and his family. The patient and his family affirmed their understanding of the post discharge care plan. The patient was satisfied with the care received and will follow up with his primary care doctor in the next 24-48 hours. Patient understand he should return to the Emergency Department immediately for any new/ worsening/concerning symptoms. 03/20/19 22:16 Call received from patient's PMD - Dr. Alonzo, agrees with decreased insulin dose. Will see patient in his office. *DC/Admit/Observation/Transfer Diagnosis at time of Disposition: Hypoglycemia - Discharge Dispostion Disposition: HOME Condition at time of disposition: Good Decision to Admit order: No - Referrals Referrals: Feliciano Alonzo MD, MD [Primary Care Provider] - - Patient Instructions Printed Discharge Instructions: DI for Hypoglycemia Additional Instructions: Your blood sugar was extremely low today. Low blood sugar can cause confusion, coma, seizures even . Make sure you eat sugar foods tonight before bed and continue to monitor your sugar at home. Take only one dose of your Novolog until evaluated by your primary care doctor. You must make an appointment to see Dr. Alnozo in the next 3 days. Your care is not complete until you are evaluated by Dr. Alonzo Return to the Emergency Department for any new/worsening/concerning symptoms including confusion, cold sweats. - Post Discharge Activity
--- NOTE | 2019-03-20 21:12 | PDOC ---
Documentation entered by Aleaj Hodges SCRIBE, acting as scribe for Elaina Wiggins MD. Elaina Wiggins MD: This documentation has been prepared by the Tracie magaña Daisy, SCRIBE, under my direction and personally reviewed by me in its entirety. I confirm that the documentation accurately reflects all work, treatment, procedures, and medical decision making performed by me. Attending Attestation - Resident Resident Name: Anoop Catherine - ED Attending Attestation I have performed the following: I have examined & evaluated the patient, The case was reviewed & discussed with the resident, I agree w/resident's findings & plan - HPI HPI: 03/20/19 19:41 69 yo male coming from home because of hypoglycemia. He is an insulin- dependent diabetic. Currently alert and conversant - Physicial Exam PE: 03/20/19 19:42 Well-nourished, well-developed 60-year-old male in no acute distress Normocephalic/atraumatic. eyes pedro eomi Neck supple Lungs are clear to auscultation bilaterally CVS regular rate and rhythm S1, S2. Abdomen is soft, nontender. Skin is warm and dry. Extremities no deformities. No tenderness Neuro alert and oriented 3, moving all extremities, motor, sausage maker 5 out of 5 bilaterally - Medical Decision Making 03/20/19 19:43 The states that sometimes this patient accidentally placed 3 days. His emesis was rather than to however, today he states that he only took them as well in the morning. Patient initially found at home confused and diaphoretic and responded to orange juice. He is now alert and oriented 3. No complaints 03/20/19 21:10 pt ate and felt well during his observation time in the ER. Pt told to see Dr Feliciano Alonzo this week to discuss his insulin regiment
== END 2019-03-20 21:04 | disposition home or self-care (01) ==
LOC: JER 14:36
PROC: 3E0337Z Introduction of Electrolytic and Water Balance Substance into Peripheral Vein, Percutaneous Approach (ICD-10-PCS; principal; 2019-03-20)
DX: E11.649 Type 2 diabetes mellitus with hypoglycemia without coma (principal); Z79.4 Long term (current) use of insulin; I10 Essential (primary) hypertension; E78.00 Pure hypercholesterolemia, unspecified
CPT/HCPCS: 82962; 96374; 99282-25

== ENCOUNTER 2019-04-10 09:51 | Inpatient (IN) | payer OTHER, BC ==
--- NOTE | 2019-04-10 11:28 | PDOC ---
History of Present Illness - General Chief Complaint: Syncope/Near Syncope Stated Complaint: FALL Time Seen by Provider: 04/10/19 10:56 History Source: Patient, Family Exam Limitations: No Limitations - History of Present Illness Initial Comments: 04/10/19 11:21 69 y/o M with PMHx of HTN, HLD, IDDM, Left eye glaucoma, Right eye cataracts, multiple spinal surgeries, presents after a witnessed syncopal episode. present at bedside provided a significant portion of the history. says that patient did not sleep well overnight and complained of eye pain. This AM after waking, walked the patient to urinate and a few minutes, she heard a loud bump. She found the patient on his knees with his head sidebent right and patient mention he hit his head. Shortly after, he was unresponsive for a few seconds and returned. denies any loss of bowel or bladder control, tongue biting, or tonic clonic movements of the extremities during the event. shortly after called PCP and visited [facility]. Additionally patient mentions 3 episodes of loose, watery, nonbloody diarrhea yesterday. Denies any associated fevers, chills, chest pain, SOB, nausea, vomiting, dysuria. Of note, patient recently had C-Spine sx in December. He is medication compliant and denies any recent medication changes. PCP: Feliciano Alonzo PMHx: HTN, HLD, IDDM, Left eye glaucoma, Right eye cataracts PSHx: Multiple spinal surgeries Social: Denies tobacco EtOH or drug use, Retired FHx: Noncontributory Past History - Travel Traveled outside of the country in the last 30 days: No Close contact w/someone who was outside of country & ill: No - Past Medical History Allergies/Adverse Reactions: Allergies Allergy/AdvReac Type Severity Reaction Status Date / Time codeine Allergy Intermediate "stomach Verified 04/10/19 10:10 hurts and itchy" morphine Allergy Unknown "itchy" Verified 04/10/19 10:10 Home Medications: Ambulatory Orders Bimatoprost [Lumigan] 1 drop OD HS 12/13/15 Metoprolol Succinate [Toprol XL -] 1 tab PO DAILY 12/13/15 Atorvastatin Ca [Lipitor] 20 mg PO HS tablet 12/26/15 Aspirin [ASA -] 81 mg PO DAILY 05/06/17 Insulin (Novolog 70/30) [Novolog Mix 70/30 Flexpen -] 60 units SQ BID 05/06/17 Sertraline HCl 50 mg PO DAILY 05/06/17 Cetirizine HCl [Zyrtec -] 10 mg PO DAILY 01/23/19 Furosemide 20 mg PO DAILY 01/23/19 Losartan Potassium 100 mg PO DAILY 01/23/19 metFORMIN HCL [Glucophage -] 500 mg PO BID 01/23/19 Brimonidine Tartrate [Alphagan 0.2% -] 1 drop OU BID drops 01/29/19 Pregabalin [Lyrica -] 150 mg PO DAILY 03/20/19 Baclofen 10 mg PO TID 04/10/19 Multivit-Min/FA/Lycopen/Lutein [Centrum Silver Men Tablet] 1 each PO DAILY 04/10 Omeprazole 20 mg PO DAILY 04/10/19 Anemia: No Asthma: No Cancer: No Cardiac Disorders: Yes ("a little hole in heart") CVA: No COPD: No CHF: No Dementia: No Diabetes: Yes GI Disorders: No Disorders: No HTN: Yes Hypercholesterolemia: Yes Liver Disease: No Seizures: No Thyroid Disease: No - Surgical History Neurologic Surgery: (low back) Orthopedic Surgery: Yes (Back sx 2015) - Immunization History Td Vaccination: No TDAP Vaccination: No Immunization Up to Date: No - Suicide/Smoking/Psychosocial Hx Smoking History: Unknown if ever smoked Have you smoked in the past 12 months: No If you are a former smoker, when did you quit?: 2004 Hx Alcohol Use: No Drug/Substance Use Hx: No Substance Use Type: None Hx Substance Use Treatment: No Review of Systems - Review of Systems Able to Perform ROS?: Yes Is the patient limited Swiss proficient: No Constitutional: No: Chills, Fever, Weakness HEENTM: Yes: Eye Pain Respiratory: No: Cough, Shortness of Breath, Wheezing Cardiac (ROS): No: Chest Pain, Edema, Lightheadedness, Palpitations ABD/GI: Yes: Diarrhea. No: Constipated, Nausea, Vomiting : No: Dysuria, Hematuria Neurological: Yes: Numbness (Chronic Right sided decreased sensation). No: Tingling, Weakness *Physical Exam - Vital Signs Last Vital Signs Temp Pulse Resp BP Pulse Ox 98.4 F 100 H 18 156/78 98 04/10/19 10:10 04/10/19 10:10 04/10/19 10:10 04/10/19 10:10 04/10/19 10:10 - Physical Exam General Appearance: Yes: Nourished, Appropriately Dressed HEENT: positive: EOMI, CODEY. negative: Pharyngeal Erythema, Tonsillar Exudate Neck: positive: Supple Respiratory/Chest: positive: Normal Breath Sounds. negative: Accessory Muscle Use, Rales, Rhonchi, Wheezing Cardiovascular: positive: Regular Rhythm, Regular Rate, S1, S2. negative: Edema , JVD, Murmur Gastrointestinal/Abdominal: positive: Normal Bowel Sounds, Soft. negative: Tender, Guarding, Rebound, Tenderness Musculoskeletal: negative: CVA Tenderness Extremity: negative: Swelling Neurologic: positive: lepidopterist II-XII NML intact, Alert (A&Ox2 to person and place), Motor Strength 5/5, Sensory Deficit (Chronic right sided diminished senssation) ED Treatment Course - LABORATORY CBC & Chemistry Diagram: 04/10/19 11:15 04/10/19 11:15 Medical Decision Making - Medical Decision Making 04/10/19 12:03 69 y/o M with PMHx of HTN, HLD, IDDM, Left eye glaucoma, Right eye cataracts, multiple spinal surgeries, presents after a witnessed syncopal episode after micturation. DDx includes vasovagal, orthostatics, metabolic derraingements, Arrhythmia, infectious source. EKG: Reveals sinus tachycardia, VR 134, QTc 439 Will check CBC, CMP, Trop, CXR, Head and C-Spine CT Give 1L Bolus NS Will reassess 04/10/19 18:46 Laboratory Last Values WBC 8.0 K/mm3 (4.0-10.0) 04/10/19 11:15 RBC 3.68 M/mm3 (4.00-5.60) L 04/10/19 11:15 Hgb 11.8 GM/dL (11.7-16.9) 04/10/19 11:15 Hct 35.2 % (35.4-49) L 04/10/19 11:15 MCV 95.6 fl (80-96) D 04/10/19 11:15 MCH 32.0 pg (25.7-33.7) 04/10/19 11:15 MCHC 33.5 g/dl (32.0-35.9) 04/10/19 11:15 RDW 15.2 % (11.9-15.9) 04/10/19 11:15 Plt Count 254 K/MM3 (134-434) D 04/10/19 11:15 MPV 7.4 fl (7.5-11.1) L 04/10/19 11:15 Absolute Neuts (auto) 4.0 K/mm3 (1.5-8.0) 04/10/19 11:15 Neutrophils % 50.2 % (42.8-82.8) D 04/10/19 11:15 Lymphocytes % 41.1 % (8-40) H D 04/10/19 11:15 Monocytes % 7.5 % (3.8-10.2) 04/10/19 11:15 Eosinophils % 0.7 % (0-4.5) D 04/10/19 11:15 Basophils % 0.5 % (0-2.0) D 04/10/19 11:15 Nucleated RBC % 0 % (0-0) 04/10/19 11:15 Sodium 139 mmol/L (136-145) 04/10/19 11:15 Potassium 4.2 mmol/L (3.5-5.1) 04/10/19 11:15 Chloride 103 mmol/L (98-107) 04/10/19 11:15 Carbon Dioxide 27 mmol/L (21-32) 04/10/19 11:15 Anion Gap 9 MMOL/L (8-16) 04/10/19 11:15 BUN 8.9 mg/dL (7-18) 04/10/19 11:15 Creatinine 1.0 mg/dL (0.55-1.3) 04/10/19 11:15 Est GFR (CKD-EPI)AfAm 88.61 04/10/19 11:15 Est GFR (CKD-EPI)NonAf 76.45 04/10/19 11:15 Random Glucose 218 mg/dL (74-106) H 04/10/19 11:15 Calcium 9.0 mg/dL (8.5-10.1) 04/10/19 11:15 Total Bilirubin 0.9 mg/dL (0.2-1) 04/10/19 11:15 AST 29 U/L (15-37) 04/10/19 11:15 ALT 27 U/L (13-61) 04/10/19 11:15 Alkaline Phosphatase 101 U/L (45-117) 04/10/19 11:15 Troponin I < 0.02 ng/ml (0.00-0.05) 04/10/19 11:15 Total Protein 7.8 g/dl (6.4-8.2) 04/10/19 11:15 Albumin 3.7 g/dl (3.4-5.0) 04/10/19 11:15 Labwork did not reveal metabollic derraingements. CXR: No evidenced of active pulmonary disease CT C-Spine: No fracture is seen. Please see above. CT Head without contrast: No evidence of acute intracranial hemorrhage, edema, midline shift, mass effect, or skull fracture. No CT evidence of acute territorial ischemic changes. CT Chest/Abdomen/Pelvis: No definite CT findings of acute pathology are identified involving the chest, abdomen or pelvis. Extensive atherosclerotic coronary calcifications are again noted. There is again visualization of mild fusiform aneurysmal dilatation of the ascending aorta with a 4.1 cm diameter. Stable benign 1.3 cm left adrenal nodule very likely representing an adenoma. Biochemical evaluation ingested. There is no CT evidence of fracture. If there is ongoing clinical concern evaluation utilizing MRI or a radionuclide bone scan may be performed. No soft tissue hematoma is seen Patient will benefit from observation on tele given syncopal episode. Microblog sent to [facility] for Admission for Dr. Feliciano Alonzo. 04/10/19 19:10 Signout Given to Maggi Hernandez NP. *DC/Admit/Observation/Transfer Diagnosis at time of Disposition: Syncope and collapse - Discharge Dispostion Decision to Admit order: Yes - Referrals Referrals: Feliciano Alonzo MD, MD [Primary Care Provider] - - Patient Instructions - Post Discharge Activity
[2019-04-10 11:48] LABS: BASO % 0.5 % (0-2.0); EOS % 0.7 % (0-4.5); HEMATOCRIT 35.2 % (35.4-49); HEMOGLOBIN 11.8 GM/dL (11.7-16.9); LYMPH % 41.1 % (8-40); MCHC 33.5 g/dl (32.0-35.9); MEAN CELL VOLUME 95.6 fl (80-96); MEAN PLT VOLUME 7.4 fl (7.5-11.1); MONO % 7.5 % (3.8-10.2); NEUT % 50.2 % (42.8-82.8); PLATELET COUNT 254 K/MM3 (134-434); RBC 3.68 M/mm3 (4.00-5.60); RDW 15.2 % (11.9-15.9)
[2019-04-10] MEDS ORDERED: SODIUM CHLORIDE 1,000 ML IV STA (12:08)
[2019-04-10 12:14] LABS: ALBUMIN 3.7 g/dl (3.4-5.0); ALK PHOS 101 U/L (45-117); ANION GAP 9 MMOL/L (8-16); BILIRUBIN,TOTAL 0.9 mg/dL (0.2-1); BLOOD UREA NITROGEN 8.9 mg/dL (7-18); CHLORIDE 103 mmol/L (98-107); CO2 27 mmol/L (21-32); GLUCOSE,RANDOM 218 mg/dL (74-106); POTASSIUM 4.2 mmol/L (3.5-5.1); SGOT/AST 29 U/L (15-37); SGPT/ALT 27 U/L (13-61); SODIUM 139 mmol/L (136-145); TOT PROT 7.8 g/dl (6.4-8.2)
[2019-04-10] MEDS ORDERED: SODIUM CHLORIDE 0.9% 1000 ML INFUS.BAG IV ONE (14:12)
[2019-04-10] MEDS ORDERED: ACETAMINOPHEN 1000 MG/100 ML VIAL (NON FORMULARY) IVPB ONE ×2 (14:12→16:36)
[2019-04-10] MEDS ORDERED: ACETAMINOPHEN INJECTION 100 ML IVPB ONE (14:17)
[2019-04-10] MEDS ORDERED: ADENOSINE 6 MG/2 ML VIAL IVPUSH ONE ×2 (14:44→14:46)
[2019-04-10] MEDS ORDERED: IBUPROFEN 800 MG/8 ML IJ IVPB ONE ×2 (16:50→17:00)
--- NOTE | 2019-04-10 17:19 | PDOC ---
Documentation entered by Garett Redd SCRIBE, acting as scribe for Jose Blanchard MD. Jose Blanchard MD: This documentation has been prepared by the Tramaine magaña Elijah, SCRIBE, under my direction and personally reviewed by me in its entirety. I confirm that the documentation accurately reflects all work, treatment, procedures, and medical decision making performed by me. Attending Attestation - Resident Resident Name: Laurence Sigala - ED Attending Attestation I have performed the following: I have examined & evaluated the patient, The case was reviewed & discussed with the resident, I agree w/resident's findings & plan - HPI HPI: 04/10/19 17:15 69 years old with past medical history significant for hypertension hyperlipidemia insulin-dependent diabetes left eye glaucoma multiple spinal surgeries presents with witnessed syncopal episode. Patient was on the toilet patient's heard a loud bump patient states he lost consciousness cut up and then lost consciousness again he was unresponsive for a few seconds. Complaining of moderate to severe head and neck pain No history of similar Pain is moderate persistent constant worse with movement no alleviating factors. ROS: A complete review of 10 out of 10 review of systems is taken and is negative apart from what is previously mentioned below and in the HPI. 04/10/19 17:19 - Physicial Exam PE: 04/10/19 17:15 Vitals: Triage Vital signs reviewed General Appearance: no acute distress, well nourished well developed, Head: Atraumatic, Eyes: Pupils equal reactive round, extraocular movement intact Neck: Supple; midline tenderness to palpation Chest Wall: Mild chest wall tenderness to palpation Cardiac: Tachycardic regular no murmurs, no rubs, no gallops, Lungs: Clear to auscultation bilateral, good air movement bilaterally, Abdomen: Soft, non distended diffuse right sided tenderness to palpation Extremities: Full range of motion to all extremities, no cyanosis, clubbing, or edema Skin: Warm and dry, no rashes or lesions, no rash, no petechiae Neuro: AOX3; Cranial Nerves 2-12 grossly intact, Strength intact to all extremities, Sensation intact to all extremities, Psych: normal mood, normal affect - Critical Care Time Total Critical Care Time: 35 Critical Care Statement: The care of this patient involved high complexity decision making to prevent further life threatening deterioration of the patient 's condition and/or to evaluate & treat vital organ system(s) failure or risk of failure. - Medical Decision Making 04/10/19 17:17 Patient noted to be progressively more tachycardic while in the emergency department given his abdominal discomfort CTs of his chest abdomen pelvis were ordered At one point EKG demonstrated possible SVT Adenosine was given 1 heart rate slowed down and demonstrated illness only sinus tachycardia This may be secondary to the patient's pain Unfortunately unable to use morphine given ALLERGIES and NSAIDs given trauma Patient treated with IV fluids and Tylenol IV, Dr. Wiggins to follow up CT reasses and dispo
--- NOTE | 2019-04-10 20:21 | HP ---
CHIEF COMPLAINT: PCP:Dr. Feliciano Alonzo Utility Clerk: Dr. Evans Neurosurgeon:Dr. Dominguez HISTORY OF PRESENT ILLNESS: This is a 69 year old male with past medical history of hypertension, hyperlipidemia, NIDDM, left eye glaucoma, right eye cataracts, and multiple spinal surgeries, most recent spinal surgery in December 2018 (wheelchair dependent ) who presents after a witnessed syncopal episode. reports he was in the bathroom urinating and she heard a loud thump. She found him on the floor. She reports there was loss of consciousness lasting a few seconds and when he regained consciousness she noticed movements with his mouth and he had "shakiness". She reported he hit his head. denies any loss of bowel or bladder control, tongue biting, or tonic clonic movements of the extremities during the event. Patient reports right sided hip and abdoinal pain. Patient reported 3 episodes of loose, watery, nonbloody diarrhea yesterday. Denies any associated fevers, chills, chest pain, SOB, nausea, vomiting, dysuria. Upon evaluation in the ER he was found to be tachycardic with heart rate in the 130's-150's. He was given a dose of IV adenosine with no improvement in heart rate. CT scan of head with intracranial hemorrhage or bleed. CT scan of chest with and without contrast showed a 4 cm ascending aortic aneuryms and no evidence of infiltrate. Recent Travel:denies PAST MEDICAL HISTORY: hypertension hyperlipidemia NIDDM PAST SURGICAL HISTORY: C-spine surgery in December Social History: Smoking:denies Alcohol:denies Drugs: denies Family History:noncontributory Allergies codeine Allergy (Intermediate, Verified 04/10/19 10:10) "stomach hurts and itchy" morphine Allergy (Unknown, Verified 04/10/19 10:10) "itchy" HOME MEDICATIONS: Home Medications Medication Instructions Recorded Bimatoprost [Lumigan] 1 drop OD HS 12/13/15 Metoprolol Succinate [Toprol XL -] 1 tab PO DAILY 12/13/15 Atorvastatin Ca [Lipitor] 20 mg PO HS tablet 12/26/15 Aspirin [ASA -] 81 mg PO DAILY 05/06/17 Insulin (Novolog 70/30) [Novolog 60 units SQ BID 05/06/17 Mix 70/30 Flexpen -] Sertraline HCl 50 mg PO DAILY 05/06/17 Cetirizine HCl [Zyrtec -] 10 mg PO DAILY 01/23/19 Furosemide 20 mg PO DAILY 01/23/19 Losartan Potassium 100 mg PO DAILY 01/23/19 metFORMIN HCL [Glucophage -] 500 mg PO BID 01/23/19 Brimonidine Tartrate [Alphagan 1 drop OU BID drops 01/29/19 0.2% -] Pregabalin [Lyrica -] 150 mg PO DAILY 03/20/19 Baclofen 10 mg PO TID 04/10/19 Multivit-Min/FA/Lycopen/Lutein 1 each PO DAILY 04/10/19 [Centrum Silver Men Tablet] Omeprazole 20 mg PO DAILY 04/10/19 REVIEW OF SYSTEMS CONSTITUTIONAL: Absent: fever, chills, diaphoresis, generalized weakness, malaise, loss of appetite, weight change HEENT: Absent: rhinorrhea, nasal congestion, throat pain, throat swelling, difficulty swallowing, mouth swelling, ear pain, eye pain, visual changes CARDIOVASCULAR: Absent: chest pain, syncope, palpitations, irregular heart rate, lightheadedness , peripheral edema, tachycardia RESPIRATORY: Absent: cough, shortness of breath, dyspnea with exertion, orthopnea, wheezing, stridor, hemoptysis GASTROINTESTINAL: Absent: right sided abdominal pain, abdominal distension, nausea, vomiting, diarrhea, constipation, melena, hematochezia GENITOURINARY: Absent: dysuria, frequency, urgency, hesitancy, hematuria, flank pain, genital pain MUSCULOSKELETAL: Absent: myalgia, arthralgia, joint swelling, back pain, neck pain SKIN: Absent: rash, itching, pallor HEMATOLOGIC/IMMUNOLOGIC: Absent: easy bleeding, easy bruising, lymphadenopathy, frequent infections ENDOCRINE: Absent: unexplained weight gain, unexplained weight loss, heat intolerance, cold intolerance NEUROLOGIC: Absent: headache, focal weakness or paresthesias, dizziness, unsteady gait, seizure, mental status changes, bladder or bowel incontinence PSYCHIATRIC: Absent: anxiety, depression, suicidal or homicidal ideation, hallucinations. PHYSICAL EXAMINATION Vital Signs - 24 hr 04/10/19 04/10/19 04/10/19 10:10 11:00 11:47 Temperature 98.4 F 98.0 F Pulse Rate 100 H Pulse Rate [ Right] Pulse Rate [ 138 H Sitting] Pulse Rate [ 133 H Supine] Respiratory 18 Rate Blood Pressure 156/78 Blood Pressure [Right Arm] Blood Pressure 148/102 H [Sitting] Blood Pressure 145/94 [Supine] O2 Sat by Pulse 98 Oximetry (%) 04/10/19 04/10/19 12:44 19:30 Temperature 100.1 F H Pulse Rate Pulse Rate [ 150 H 132 H Right] Pulse Rate [ Sitting] Pulse Rate [ Supine] Respiratory 20 16 Rate Blood Pressure Blood Pressure 155/100 171/100 H [Right Arm] Blood Pressure [Sitting] Blood Pressure [Supine] O2 Sat by Pulse 100 Oximetry (%) GENERAL: awake alert and oriented HEAD: normal EYES: pupils equal round and reactive to light EARS, NOSE, THROAT: ears normal nares patent NECK: supple LUNGS: breath sounds clear to auscultation bilaterally nolabored breathing effort no rales no wheezing HEART: rate regular and tachycardic no murmurs ABDOMEN: soft nontender not distended normoactive bowel sounds pain to right lower side of abdomen MUSCULOSKELETAL: pain to right side of hip UPPER EXTREMITIES: warm well-perfused no cyanosis LOWER EXTREMITIES: well-perfused no calf tenderness no peripheral edema NEUROLOGICAL: normal speech PSYCHIATRIC: cooperative SKIN: warm dry normal turgor no rashes or lesions noted normal capillary refill Laboratory Results - last 24 hr 04/10/19 04/10/19 11:15 11:15 WBC 8.0 RBC 3.68 L Hgb 11.8 Hct 35.2 L MCV 95.6 D MCH 32.0 MCHC 33.5 RDW 15.2 Plt Count 254 D MPV 7.4 L Absolute Neuts (auto) 4.0 Neutrophils % 50.2 D Lymphocytes % 41.1 H D Monocytes % 7.5 Eosinophils % 0.7 D Basophils % 0.5 D Nucleated RBC % 0 Sodium 139 Potassium 4.2 Chloride 103 Carbon Dioxide 27 Anion Gap 9 BUN 8.9 Creatinine 1.0 Est GFR (CKD-EPI)AfAm 88.61 Est GFR (CKD-EPI)NonAf 76.45 Random Glucose 218 H Calcium 9.0 Total Bilirubin 0.9 AST 29 ALT 27 Alkaline Phosphatase 101 Troponin I < 0.02 Total Protein 7.8 Albumin 3.7 ASSESSMENT/PLAN: 69 year old male with past medical history of hypertension, hyperlipidemia, NIDDM, left eye glaucoma, right eye cataracts, and multiple spinal surgeries, most recent spinal surgery in December 2018 (wheelchair dependent) who presents after a witnessed syncopal episode. Syncopy Workup- CT scan of head negative and excluded hemorrhage/ischemia. Troponin normal. D-Dimer is elevated at 1000. Patient is tachycardic, no evidence of hypoxia, reports SOB, Concern for PE however had CT scan of chest and abdomen with contrast earlier today and at risk for IV contrast induced nephropathy. Ordered CT angiogram of chest for am if creatinine is normal. Ordered a dose of therapeutic lovenox now. Pulmonary- Dr. Adrian consulted -Continue to trend troponins -Check orthostatic vital signs -Carotid doppler, echocardiogram and TSH ordered -Cardiology consulted- Dr. Evans -Neurology consulted- Dr. Saucedo Tachycardia Etiology unknown, may be related to right sided hip and lower right sided abdominal pain.CT of abdomen with no acute findings. Continue with beta concepcion D-Dimer elevated ,ordered one dose of therapeutic lovenox , Pulmonary consulted. Right Sided Abdominal and Hip Pain CT scan of abdomen/pelvis with no acute findings. LFT's normal Hypertension Uncontrolled Continue with metprolol succinate and losartan Hyperlipidemia Continue statin therapy NIDDM -accucheks before meals and at bedtime -Continue with metformin and insulin Novolog FEN ADA diet DVT SCD's/TEDS Visit type - Emergency Visit Emergency Visit: Yes ED Registration Date: 04/10/19 Care time: The patient presented to the Emergency Department on the above date and was hospitalized for further evaluation of their emergent condition. - New Patient This patient is new to me today: Yes Date on this admission: 04/10/19 - Critical Care Critical Care patient: No
[2019-04-10] MEDS ORDERED: ENOXAPARIN NA (PORCINE) 40 MG/0.4 ML DISP.SYRIN SQ ONE ×2 (20:55→21:37)
[2019-04-10] MEDS ORDERED: ENOXAPARIN NA (PORCINE) 80 MG/0.8 ML DISP.SYRIN SQ ONE ×2 (21:06→21:15)
[2019-04-10] MEDS ORDERED: ATORVASTATIN CA 20 MG TABLET (FP) PO SCH (22:00)
[2019-04-10] MEDS ORDERED: LATANOPROST 0.005% OPHTH SOLN 2.5ML BOTTLE OD SCH (22:00)
[2019-04-10] MEDS ORDERED: ATORVASTATIN CA 20 MG TABLET (FP) ONE (22:33)
[2019-04-10] MEDS ORDERED: BACLOFEN 10 MG TABLET (FP) ONE (22:34)
[2019-04-10] MEDS: BACLOFEN 10 MG TABLET (FP) PO SCH (22:48)
[2019-04-10] MEDS: BRIMONIDINE TARTRATE 0.2% OPHTHALMIC 5 ML BOTTLE OU SCH (23:15)
[2019-04-11 04:13] VITALS: BMI 26.9
[2019-04-11] MEDS: metFORMIN HCL 500 MG TABLET (FP) PO SCH ×2 (06:47→16:58)
[2019-04-11] MEDS: BACLOFEN 10 MG TABLET (FP) PO SCH ×2 (06:47→13:10)
[2019-04-11] MEDS ORDERED: INSULIN (NOVOLOG MIX 70/30) 100 UNITS/ML MDV SQ SCH ×3 (07:00→19:00)
[2019-04-11] MEDS ORDERED: PANTOPRAZOLE 20 MG TABLET (FP) PO SCH (10:00)
[2019-04-11] MEDS ORDERED: SERTRALINE HCL 50 MG TABLET (FP) PO SCH (10:00)
[2019-04-11] MEDS ORDERED: LORATADINE 10 MG TABLET PO SCH (10:00)
[2019-04-11] MEDS ORDERED: PREGABALIN 75 MG CAPSULE PO SCH (10:00)
[2019-04-11] MEDS ORDERED: LOSARTAN POTASSIUM 50 MG TABLET (FP) PO SCH (10:00)
[2019-04-11] MEDS ORDERED: MULTIVITAMINS THER W-MINERALS COMBO TABLET (FP) PO SCH (10:00)
[2019-04-11] MEDS ORDERED: metoPROLOL SUCCINATE 25 MG TAB.SR.24H (FP) PO SCH (10:00)
[2019-04-11] MEDS ORDERED: ASPIRIN 81 MG CHEWABLE TABLETS PO SCH (10:00)
[2019-04-11] MEDS ORDERED: FUROSEMIDE 20 MG TABLET (FP) PO SCH (10:00)
[2019-04-11] MEDS: BRIMONIDINE TARTRATE 0.2% OPHTHALMIC 5 ML BOTTLE OU SCH (10:55)
--- NOTE | 2019-04-11 11:22 | CON.CARD ---
Consult Consult Specialty:: Cardiology Referred by:: Medicine Reason for Consultation:: syncope - History of Present Illness Chief Complaint: syncope, falls History of Present Illness: 69M h/o HTN, HLD, DM, multiple spinal surgery most recently neck surgery 12/2018 p/w syncope. Two days ago he fell and hit his head, did not lose consciousness. Thinks maybe the floor was wet, doesn't remember being dizzy. [place] ok after, then day of admission he passed out. Per report from , was in bathroom urinating and she heard a thump. Patient says he was feeling headache, neck pain and dizziness before that. LOC for a few seconds, looked shaky per report from , hit his head when he fell. complains of R and L arm pain today, diarrhea yesterday. No chest pain, palps, edema. - Past Medical History Cardio/Vascular: Yes: Aneurysm, HTN, Hyperlipdemia Gastrointestinal: Yes: GERD Psych: Yes: Depression Musculoskeletal: Yes: Other (right foot drop) Endocrine: Yes: Diabetes Mellitus - Past Surgical History Past Surgical History: Yes: Laminectomy - Alcohol/Substance Use Hx Alcohol Use: No - Smoking History Smoking history: Former smoker Have you smoked in the past 12 months: No If you are a former smoker, when did you quit?: 2004 - Social History Usual Living Arrangement: With Spouse ADL: Independent History of Recent Travel: No Home Medications - Allergies Allergies/Adverse Reactions: Allergies Allergy/AdvReac Type Severity Reaction Status Date / Time codeine Allergy Intermediate "stomach Verified 04/10/19 10:10 hurts and itchy" morphine Allergy Unknown "itchy" Verified 04/10/19 10:10 - Home Medications Home Medications: Ambulatory Orders Bimatoprost [Lumigan] 1 drop OD HS 12/13/15 Metoprolol Succinate [Toprol XL -] 1 tab PO DAILY 12/13/15 Atorvastatin Ca [Lipitor] 20 mg PO HS tablet 12/26/15 Aspirin [ASA -] 81 mg PO DAILY 05/06/17 Insulin (Novolog 70/30) [Novolog Mix 70/30 Flexpen -] 60 units SQ BID 05/06/17 Sertraline HCl 50 mg PO DAILY 05/06/17 Cetirizine HCl [Zyrtec -] 10 mg PO DAILY 01/23/19 Furosemide 20 mg PO DAILY 01/23/19 Losartan Potassium 100 mg PO DAILY 01/23/19 metFORMIN HCL [Glucophage -] 1,000 mg PO BID 01/23/19 Brimonidine Tartrate [Alphagan 0.2% -] 1 drop OU BID drops 01/29/19 Pregabalin [Lyrica -] 150 mg PO DAILY 03/20/19 Baclofen 10 mg PO TID 04/10/19 Multivit-Min/FA/Lycopen/Lutein [Centrum Silver Men Tablet] 1 each PO DAILY 04/10 Omeprazole 20 mg PO DAILY 04/10/19 Family Disease History - Family Disease History Family History: Unremarkable Review of Systems - Review of Systems Constitutional: reports: No Symptoms Eyes: reports: No Symptoms HENT: reports: No Symptoms Neck: reports: No Symptoms Cardiovascular: reports: No Symptoms Respiratory: reports: No Symptoms Gastrointestinal: reports: No Symptoms Genitourinary: reports: No Symptoms Musculoskeletal: reports: No Symptoms Integumentary: reports: No Symptoms Neurological: reports: No Symptoms Endocrine: reports: No Symptoms Hematology/Lymphatic: reports: No Symptoms Psychiatric: reports: No Symptoms Vital Signs: Vital Signs Temperature 98.8 F 04/11/19 05:42 Pulse Rate 124 H 04/11/19 05:42 Respiratory Rate 16 04/11/19 09:00 Blood Pressure 155/101 H 04/11/19 05:42 O2 Sat by Pulse Oximetry (%) 100 04/11/19 09:39 Constitutional: Yes: No Distress, Calm Eyes: Yes: Conjunctiva Clear, EOM Intact HENT: Yes: Normocephalic, Other (bruise on forehead) Neck: Yes: Supple, Trachea Midline Respiratory: Yes: Regular, CTA Bilaterally Gastrointestinal: Yes: Normal Bowel Sounds, Soft Cardiovascular: Yes: Tachycardia JVD: No Carotid Bruit: No PMI: Non-Displaced Musculoskeletal: No: Back Pain Extremities: No: Cold Edema: No Peripheral Pulses: 2+ Left Doralis Pedis, 2+ Right Dorsalis Pedis Integumentary: No: Jaundice Neurological: Yes: Alert, Oriented Psychiatric: No: Agitated - Other Data Labs, Other Data: CBC, BMP 04/10/19 11:15 04/10/19 11:15 Troponin, BNP 04/10/19 11:15 Troponin I < 0.02 Troponin, BNP 04/10/19 11:15 Troponin I < 0.02 Assessment/Plan EKG sinus tachycardia, no ischemic changes CXR: no acute process CT chest noncon: 4.1 cm thoracic aorta aneurysm, stable, extensive atherosclerostic coronary calcifications carotid ultrasound: mod to large plaques with calcs at R common bbifurcation/ bulb, sm to mod size plaques with calcifications at L common bifurcation/bultb. no hemodynamically significant stenosis syncope - history of pain, dizziness, after urination suggestive of vasovagal etiology - carotid ultrasound no sig stenosis - echo pending - trop neg x1, no ischemic changes on EKG - repeat labs pending - monitoring on tele - sinus tachycardia, no events - neuro consulted - concern for PE given elevated D dimer, tachycardia - complained of SOB reportedly, now resolved - CTA chest pending to r/o PE, pulm consulted as well sinus tachycardia - may be related to pain - PE workup as above - cont metoprolol - echo pending HTN - cont home meds, monitor BP HLD - cont statin carotid atherosclerosis, CAD - coronary calcifications noted on CT chest, with atherosclerosis on carotid ultrasound - cont statin, aspirin Thoracic aorta aneurysm - 4.1 cm, similar to 2016 CT - BP control - outpatient monitoring
--- NOTE | 2019-04-11 11:49 | PN ---
Progress Note, Physician Chief Complaint: Syncope Elevated D-Dimer History of Present Illness: Previous notes and events reviewed awake and alert NAD complain of L arm pain denies complain of chest pain or SOB - Current Medication List Current Medications: Active Medications Aspirin (Asa -) 81 mg PO DAILY [facility] Last Admin: 04/11/19 10:55 Dose: 81 mg Atorvastatin Calcium (Lipitor -) 20 mg PO HS [facility] Last Admin: 04/10/19 22:48 Dose: 20 mg Baclofen (Lioresal -) 10 mg PO TID [facility] Last Admin: 04/11/19 06:47 Dose: 10 mg Brimonidine Tartrate (Alphagan 0.2% -) 1 drop OU BID [facility] Last Admin: 04/11/19 10:55 Dose: 1 drop Furosemide (Lasix -) 20 mg PO DAILY [facility] Last Admin: 04/11/19 10:54 Dose: 20 mg Insulin Aspart (Novolog Mix 70/30 Vial) 60 units SQ BIDI [facility] Latanoprost (Xalatan 0.005% Eye Drops -) 1 drop OD HS [facility] Last Admin: 04/10/19 23:15 Dose: 1 drop Loratadine (Claritin -) 10 mg PO DAILY [facility] Last Admin: 04/11/19 10:55 Dose: 10 mg Losartan Potassium (Cozaar -) 100 mg PO DAILY [facility] Last Admin: 04/11/19 10:55 Dose: 100 mg Metformin HCl (Glucophage -) 500 mg PO BIDAC [facility] Last Admin: 04/11/19 06:47 Dose: 500 mg Metoprolol Succinate (Toprol Xl -) 25 mg PO DAILY [facility] Last Admin: 04/11/19 10:55 Dose: 25 mg Multivitamins/Minerals (Theragran-M) 1 each PO DAILY [facility] Last Admin: 04/11/19 10:55 Dose: 1 each Pantoprazole Sodium (Protonix -) 20 mg PO DAILY [facility] Last Admin: 04/11/19 10:54 Dose: 20 mg Pregabalin (Lyrica -) 150 mg PO DAILY [facility] Last Admin: 04/11/19 10:55 Dose: 150 mg Sertraline HCl (Zoloft -) 50 mg PO DAILY [facility] Last Admin: 04/11/19 10:55 Dose: 50 mg - Objective Vital Signs: Vital Signs Temperature 98.8 F 04/11/19 05:42 Pulse Rate 124 H 04/11/19 05:42 Respiratory Rate 16 04/11/19 09:00 Blood Pressure 155/101 H 04/11/19 05:42 O2 Sat by Pulse Oximetry (%) 100 04/11/19 09:39 Constitutional: Yes: No Distress, Calm Eyes: Yes: Conjunctiva Clear HENT: Yes: Atraumatic Cardiovascular: Yes: Tachycardia Respiratory: Yes: Regular, CTA Bilaterally Gastrointestinal: Yes: Normal Bowel Sounds, Soft Musculoskeletal: Yes: Muscle Weakness Extremities: Yes: WNL Edema: No Wound/Incision: Yes: Open to air Neurological: Yes: Alert, Oriented Psychiatric: Yes: Alert, Oriented Labs: CBC, BMP 04/10/19 11:15 04/10/19 11:15 Problem List - Problems (1) Syncope and collapse Assessment/Plan: -Cardiology on board -Neurology consult -Carotid US shows moderate to large plaques with calcification at the right common carotid bifurcation/bulb without evidence of of significant stenosis, small to moderate size plaques with calcifications at the left common carotid bifurcation/bulb without evidence of significant stenosis -Echo ordered -trop neg x 1 -Head CT scan reviewed Code(s): R55 - SYNCOPE AND COLLAPSE (2) HLD (hyperlipidemia) Assessment/Plan: -Atorvastatin -lipid panel Code(s): E78.5 - HYPERLIPIDEMIA, UNSPECIFIED (3) HTN (hypertension) Assessment/Plan: -Lasix, Losartan -low Na diet Code(s): I10 - ESSENTIAL (PRIMARY) HYPERTENSION Qualifiers: Hypertension type: essential hypertension Qualified Code(s): I10 - Essential (primary) hypertension (4) Thoracic aortic aneurysm Assessment/Plan: -Abd/Pelvic CT shows mild fusiform aneurysmal dilation of the ascending aorta 4.1cm -vascular consult Code(s): I71.2 - THORACIC AORTIC ANEURYSM, WITHOUT RUPTURE (5) Diabetes Assessment/Plan: -BGM ACHS -HgA1c -Metformin, Novolog 70/30 -Diabetic diet Code(s): E11.9 - TYPE 2 DIABETES MELLITUS WITHOUT COMPLICATIONS Qualifiers: Diabetes mellitus type: type 2 Diabetes mellitus alf insulin use: with alf use Diabetes mellitus complication status: with unspecified complications (6) GERD (gastroesophageal reflux disease) Assessment/Plan: -Pantoprazole Code(s): K21.9 - GASTRO-ESOPHAGEAL REFLUX DISEASE WITHOUT ESOPHAGITIS Qualifiers: Esophagitis presence: without esophagitis Qualified Code(s): K21.9 - Gastro -esophageal reflux disease without esophagitis (7) Elevated d-dimer Assessment/Plan: -pending Chest CTA -Lovenox daily -D-dimer 1000 -Doppler neg for DVT Code(s): R79.89 - OTHER SPECIFIED ABNORMAL FINDINGS OF BLOOD CHEMISTRY Assessment/Plan see problem list dvt ppx SNF placement for rehab
--- NOTE | 2019-04-11 12:31 | PN ---
Progress Note (short form) - Note Progress Note: [id number] CONSULTATION DICTATED 04/11/91 IMP SYNCOPE TACHYCARDIA ? PE S/P RECENT SPINAL SURGERY DM HTN ASHD ASCENDING AORTIC ANEURYSM PLAN LOVENOX ECHO CE CHEST CTA O2 NEEDED Problem List - Problems (1) Elevated d-dimer Code(s): R79.89 - OTHER SPECIFIED ABNORMAL FINDINGS OF BLOOD CHEMISTRY (2) Syncope and collapse Code(s): R55 - SYNCOPE AND COLLAPSE (3) Abdominal pain Code(s): R10.9 - UNSPECIFIED ABDOMINAL PAIN (4) Diabetes Code(s): E11.9 - TYPE 2 DIABETES MELLITUS WITHOUT COMPLICATIONS Qualifiers: Diabetes mellitus type: type 2 Diabetes mellitus joint terminal attack controller insulin use: with [place] [facility] use Diabetes mellitus complication status: with unspecified complications (5) GERD (gastroesophageal reflux disease) Code(s): K21.9 - GASTRO-ESOPHAGEAL REFLUX DISEASE WITHOUT ESOPHAGITIS Qualifiers: Esophagitis presence: without esophagitis Qualified Code(s): K21.9 - Gastro -esophageal reflux disease without esophagitis (6) HLD (hyperlipidemia) Code(s): E78.5 - HYPERLIPIDEMIA, UNSPECIFIED (7) HTN (hypertension) Code(s): I10 - ESSENTIAL (PRIMARY) HYPERTENSION Qualifiers: Hypertension type: essential hypertension Qualified Code(s): I10 - Essential (primary) hypertension (8) History of lumbar fusion Code(s): Z98.1 - ARTHRODESIS STATUS (9) Thoracic aortic aneurysm Code(s): I71.2 - THORACIC AORTIC ANEURYSM, WITHOUT RUPTURE
--- NOTE | 2019-04-11 12:48 | EKG ---
Test Reason : Blood Pressure : / mmHG Vent. Rate : 134 BPM Atrial Rate : 134 BPM P-R Int : 154 ms QRS Dur : 066 ms QT Int : 294 ms P-R-T Axes : 036 -14 036 degrees QTc Int : 439 ms POOR DATA QUALITY, INTERPRETATION MAY BE ADVERSELY AFFECTED SINUS TACHYCARDIA INFERIOR INFARCT , AGE UNDETERMINED ABNORMAL ECG WHEN COMPARED WITH ECG OF 25-JAN-2019 09:27, INFERIOR INFARCT IS NOW PRESENT Confirmed by Derian Morales MD ([id number]) on 04/11/2019 12:47:54 PM Referred By: Confirmed By:Derian Morales MD
--- NOTE | 2019-04-11 13:27 | CONSULT ---
- Consultation REQUESTING PROVIDER: Asim Holley - Vascular Surgery CONSULT REQUEST: We have been asked to surgically evaluate this patient for Thoracic Aneurysm. PCP: Dr. Feliciano Alonzo Organisation And Methods Analyst: Dr. Evans Neurosurgeon: Dr. Ravi HPI: Called to eval 69 yo male with PMHx as noted below. Admitted to [facility] secondary to unwitnessed syncope. Per medical notes, patient fell two days prior to coming to hospital hitting his head without LOC. Per report from , was in bathroom urinating when she heard a "thump". found on the floor unresponsive but breathing. Thinks he may have looked like he was shaking (no h/o of seizures). Ptient states prior to his fall he felt a bit dizzy/weak and headache. Denies n/v/f/c, CP, palpitations, SOB, NEVILLE prior too or post fall. While in the ED he had the following imaging studies: 1. Head CT: no evidence of hematoma 2. Chest CT w/ & w/o con) incidental finding of 4 cm ascending aortic aneuryms PMHx: GERD. Depression, Right foot drop. HTN, Hyperlipidemia, NIDDM, Left eye glaucoma, Right eye cataracts PSHx: 01/24/2019 (Dr. Ravi) --> Anterior C6 corpectomy with CAGE placement and plating. C2-C7 laminectomy with posterior fusion 05/10/2017 (Dr. Abrahan Hagan) --> T10-T11 laminectomies; L T11 transpedicular decompression; posterolateral fusion Redo & expansion of prior laminectomies L3- 4 5-S1 for decompression of lumbar roots bilat L3,4,5, S1; removal of prior L4-5-S1 instrumentation; new L4-S1 posterolateral fusion 12/23/2015 (Dr. Abrahan Hagan) --> L3 & S1 and complete bilat L4-5 lamis; bone graft harvest, interbody and postero-lateral fusion, pedicle screws L4-5-S1 Home Meds Bimatoprost [Lumigan] 1 drop OD HS 12/13/15 Metoprolol Succinate [Toprol XL -] 1 tab PO DAILY 12/13/15 Atorvastatin Ca [Lipitor] 20 mg PO HS tablet 12/26/15 Aspirin [ASA -] 81 mg PO DAILY 05/06/17 Insulin (Novolog 70/30) [Novolog Mix 70/30 Flexpen -] 60 units SQ BID 05/06/17 Sertraline HCl 50 mg PO DAILY 05/06/17 Cetirizine HCl [Zyrtec -] 10 mg PO DAILY 01/23/19 Furosemide 20 mg PO DAILY 01/23/19 Losartan Potassium 100 mg PO DAILY 01/23/19 metFORMIN HCL [Glucophage -] 1,000 mg PO BID 01/23/19 Brimonidine Tartrate [Alphagan 0.2% -] 1 drop OU BID drops 01/29/19 Pregabalin [Lyrica -] 150 mg PO DAILY 03/20/19 Baclofen 10 mg PO TID 04/10/19 Multivit-Min/FA/Lycopen/Lutein [Centrum Silver Men Tablet] 1 each PO DAILY 04/10 Omeprazole 20 mg PO DAILY 04/10/19 Allergies Codeine Allergy (Intermediate, Verified 04/10/19 10:10) "stomach hurts and itchy " Morphine Allergy (Unknown, Verified 04/10/19 10:10) "itchy" ROS: CONSTITUTIONAL: Absent: fever, chills, diaphoresis, generalized weakness, malaise, loss of appetite, weight change CARDIOVASCULAR: Absent: chest pain, syncope, palpitations, irregular heart rate , lightheadedness, peripheral edema RESPIRATORY: Absent: cough, shortness of breath, dyspnea with exertion, wheezing , stridor, hemoptysis GASTROINTESTINAL:Absent: abdominal pain, abdominal distension, nausea, vomiting , diarrhea, constipation, melena, hematochezia GENITOURINARY: Absent: dysuria, frequency, urgency, hesitancy, hematuria, flank pain, genital pain MUSCULOSKELETAL: Absent: myalgia, arthralgia, joint swelling, back pain, neck pain SKIN: Absent: rash, itching, pallor HEMATOLOGIC/IMMUNOLOGIC: Absent: easy bleeding, easy bruising, lymphadenopathy NEUROLOGIC: Absent: headache, focal weakness, paresthesias, dizziness, unsteady gait, seizure, mental status changes, bladder or bowel incontinence PSYCHIATRIC: Absent: anxiety, depression, suicidal or homicidal ideation, hallucinations. PE: GENERAL: a&o. nad. HEAD: nc. at. NECK: soft. supple. trach midline LUNGS: cta bilat HEART: rrr. no murmurs detected ABDOMEN: soft. nt. nd. bs in all quadrants MUSCULOSKELETAL: Right hip UE: warm well-perfused no cyanosis LE: well-perfused no calf tenderness no peripheral edema bilat NEUROLOGICAL: normal speech PSYCHIATRIC: cooperative SKIN: warm dry normal turgor no rashes or lesions noted normal capillary refill Last Vital Signs Temp Pulse Resp BP Pulse Ox 98.8 F 124 H 16 155/101 H 100 04/11/19 05:42 04/11/19 05:42 04/11/19 09:00 04/11/19 05:42 04/11/19 09:39 CBC, BMP 04/10/19 11:15 04/10/19 11:15 Problem List - Problems (1) Thoracic aortic aneurysm Assessment/Plan: 69 yo male admitted s/p syncopal episode. Incidental finding of 4 cm thoracic aneurysm (stable). Patient is hemodynamically stable. Asymptomatic. No surgical intervention. Patient instructed to follow-up with Thoracic Surgery for monitored surveillance. Cont medical management. Above plan discussed with my attending and agrees. On behalf of Dr. Holley, thank you for the opportunity to participate in your patient's care Code(s): I71.2 - THORACIC AORTIC ANEURYSM, WITHOUT RUPTURE (2) Syncope and collapse Code(s): R55 - SYNCOPE AND COLLAPSE (3) Diabetes Code(s): E11.9 - TYPE 2 DIABETES MELLITUS WITHOUT COMPLICATIONS Qualifiers: Diabetes mellitus type: type 2 Diabetes mellitus terminal press operator insulin use: with terminal press operator use Diabetes mellitus complication status: with unspecified complications (4) GERD (gastroesophageal reflux disease) Code(s): K21.9 - GASTRO-ESOPHAGEAL REFLUX DISEASE WITHOUT ESOPHAGITIS Qualifiers: Esophagitis presence: without esophagitis Qualified Code(s): K21.9 - Gastro -esophageal reflux disease without esophagitis (5) HLD (hyperlipidemia) Code(s): E78.5 - HYPERLIPIDEMIA, UNSPECIFIED (6) HTN (hypertension) Code(s): I10 - ESSENTIAL (PRIMARY) HYPERTENSION Qualifiers: Hypertension type: essential hypertension Qualified Code(s): I10 - Essential (primary) hypertension Visit type - Case Type Case Type: ED Admission - Emergency Emergency Visit: Yes ED Registration Date: 04/10/19 Care time: The patient presented to the Emergency Department on the above date and was hospitalized for further evaluation of their emergent condition. - New patient This patient is new to me today: Yes Date on this admission: 04/11/19
--- NOTE | 2019-04-11 13:55 | PN ---
Progress Note (short form) - Note Progress Note: Vascular surgery CT scan of abd of pelvis reviewed. Stable 4.1cm ascending aortic aneurysm. Needs follow up as out pt with thoracic surgery No intervention needed currently. Asim Holley DO
--- NOTE | 2019-04-11 15:24 | EKG ---
Test Reason : Blood Pressure : / mmHG Vent. Rate : 126 BPM Atrial Rate : 126 BPM P-R Int : 150 ms QRS Dur : 070 ms QT Int : 326 ms P-R-T Axes : 038 -37 021 degrees QTc Int : 472 ms SINUS TACHYCARDIA LEFT AXIS DEVIATION ABNORMAL ECG WHEN COMPARED WITH ECG OF 10-APR-2019 11:14, CRITERIA FOR INFERIOR INFARCT ARE NO LONGER PRESENT Confirmed by MD Esau, Reza ([id number]) on 04/11/2019 3:24:17 PM Referred By: Francisca HENRY Confirmed By:Reza Cifuentes MD
--- NOTE | 2019-04-11 17:43 | CONS ---
DATE OF CONSULTATION: 04/11/2019 PULMONARY CONSULTATION REFERRING PHYSICIAN: Miguelito Moore M.D. HISTORY OF PRESENT ILLNESS: The patient is a 69-year-old black male with a past medical history of hypertension, hyperlipidemia, noninsulin dependent diabetes mellitus, left eye glaucoma, right eye cataract, multiple spinal surgery most recent in December 2018, essentially wheelchair dependent, admitted to [facility] status post witnessed syncopal episode. Patient apparently was in the bathroom urinating and heard a loud thump, found him on the floor in the bathroom. He denied any chest pain, nausea, vomiting prior to this, although he states he had felt a little lightheaded prior to the episode. He apparently complained of hitting his head. The patient is brought to the emergency room above. In the ER, he underwent a CT scan of the chest, non-PE protocol which revealed 4 cm ascending aortic aneurysm which is stable, no evidence of infiltrates. CT of the head, no intracranial hemorrhage or bleed. The patient was admitted. He is not on Lovenox for possible PE. Hospitalization significant for patient has remained tachycardic throughout the hospitalization. He denies any significant pain, chest pain, abdominal pain at this time. Denies any nausea or vomiting. He is a nonsmoker. There is no history of occupational exposure to chemicals or fumes. PAST MEDICAL HISTORY: Again with hypertension, hyperlipidemia, noninsulin dependent diabetes mellitus, left eye glaucoma, right eye cataract, multiple spinal surgeries. REVIEW OF SYSTEMS: No orthopnea. No PND. No shortness of breath. No hemoptysis. No abdominal pain. CURRENT MEDICATIONS: Include eyedrops, Cozaar, Lovenox, Lyrica, Zoloft, Toprol, Glucophage, Lioresal, Lipitor, NovoLog, Lasix, , aspirin, Xalatan eyedrops, Protonix, and Claritin. PHYSICAL EXAMINATION: GENERAL: The patient is a well developed, well nourished male awake, alert, in no acute distress. He is afebrile. VITAL SIGNS: Heart rate is 124, blood pressure 155/101, respiratory rate 16, and O2 saturation is 90 to 100 percent room air. HEENT: Normocephalic, atraumatic. NECK: Supple. HEART: Tachycardic, S1, S2. CHEST: Clear. ABDOMEN: Soft, bowel sounds positive. EXTREMITIES: No cyanosis, edema. LABORATORY: WBC is 8, hemoglobin 11.8, hematocrit 35.2 with platelet count of 254,000. D-dimer is 1000. Duplex lower extremity is negative. BUN 8.9, creatinine 1. Chest CT is noted earlier. IMPRESSION: 1. Syncope, status post syncopal episode. 2. Persistent tachycardia. 3. Questionable pulmonary embolism status post spinal surgery, although no evidence of large significant pulmonary emboli on CT of the chest with contrast, although cannot exclude subsegmental emboli. 4. Diabetes. 5. Hypertension. 6. Arteriosclerotic heart disease. 7. Ascending aortic aneurysm. PLAN: Continue Lovenox. Echo. Cardiac enzymes. CTA. Supplemental O2 as needed. RENATE BYNUM M.D. [id number]
[2019-04-11 18:11] VITALS: TEMP 99
--- NOTE | 2019-04-11 20:20 | HOSP ---
Subjective - Review of Symptoms Events since last encounter: Hospitalist Encounter Notified by RN that the patient is requesting to sign AMA, requesting hospitalist to evaluate. Subjective: Arrived to bedside, patient is awake, alert and oriented to name, , Month, President, person. Patient reports having palpitations, denies chest pain and SOB. Patient states" I do not want to stay here, I want to leave." Discussed in detail with the patient, his daughter in law, and grandson as well as spoke with his earlier via telephone the risks and dangers of leaving against medical advice. Patent adamantly refused. Assessment: This is a 69 y/o man with a PMHx of HTN, HLD, DM, multiple spinal surgery most recently neck surgery 12/2018 p/w syncope. Admitted for Syncope. Patient was being treated for presumed PE on Lovenox SQ, secondary to Tachycardia, elevated dDimer, CTA- pending Plan Stat- EKG Vitals Cardiovascular: Yes: Palpitations Physical Examination Vital Signs: Vital Signs Temperature 99.0 F 04/11/19 17:00 Pulse Rate 98 H 04/11/19 17:00 Respiratory Rate 20 04/11/19 17:00 Blood Pressure 153/96 04/11/19 17:00 O2 Sat by Pulse Oximetry (%) 100 04/11/19 09:39 Constitutional: Yes: No Distress, Other (Agitated) Eyes: Yes: WNL, Conjunctiva Clear, EOM Intact, PERRL HENT: Yes: WNL, Atraumatic, Normocephalic Neck: Yes: WNL, Supple, Trachea Midline Cardiovascular: Yes: Tachycardia, S1, S2 Respiratory: Yes: WNL, Regular, CTA Bilaterally Gastrointestinal: Yes: WNL, Normal Bowel Sounds, Soft Neurological: Yes: Alert, Oriented Psychiatric: Yes: Alert, Oriented, Agitated Labs: CBC, BMP 04/10/19 11:15 04/10/19 11:15 Laboratory Results - last 24 hr 04/11/19 04/11/19 06:04 12:58 POC Glucometer 225 Troponin I < 0.02 Intake & Output 04/08/19 04/09/19 04/10/19 04/11/19 23:59 23:59 23:59 23:59 Intake Total 450 Output Total 300 Balance 150 Weight 72.575 kg 73.573 kg Hospitalist Encounter Outcome: EKG- ST 139 bpm, no change compared to prior study Advised patient of risks and dangers of leaving against medical advise, patient verbalized understanding, family at bedside, informed patient's via telephone. Patient advised to return to ED if he has CP, SOB, increased palpitations or worsening condition and to f/u with his PCP TRUONG. He verbalized understanding. Patient left telemetry unit via w/c with his family members.
[2019-04-11] MEDS ORDERED: ENOXAPARIN NA (PORCINE) 60 MG/0.6 ML DISP.SYRIN SQ SCH (22:00)
[2019-04-12 00:34] VITALS: BP 167/78; PULSE 138
[2019-04-12] MEDS ORDERED: ENOXAPARIN NA (PORCINE) 60 MG/0.6 ML DISP.SYRIN SQ SCH (10:00)
== END 2019-04-11 21:27 | disposition left against medical advice (07) | DRG 312 ==
LOC: JER 09:51 → JERBED 19:02 → OBSVTOIN 23:30 → J4W 04-11 04:24 → UNDODISIN 04-11 18:56
PROVIDERS: ADMIT Internal Medicine; ATTEND Family Medicine
DX: R55 Syncope and collapse (principal); I26.99 Other pulmonary embolism without acute cor pulmonale; R00.0 Tachycardia, unspecified; I10 Essential (primary) hypertension; E11.9 Type 2 diabetes mellitus without complications; R79.89 Other specified abnormal findings of blood chemistry; I71.2 Thoracic aortic aneurysm, without rupture; E78.5 Hyperlipidemia, unspecified; K21.9 Gastro-esophageal reflux disease without esophagitis; I25.10 Atherosclerotic heart disease of native coronary artery without angina pectoris
CPT/HCPCS: 36415; 70450-TC; 71045-TC-FY; 71260-TC; 72125-TC; 72128-TC; 72131-TC; 74177-TC; 80053; 82962; 84484; 85025; 85379; 93005; 93010; 93880-TC; 93970-TC; 97116-GP; 97161-GP; 99284-25; G0378; J0131; J0475; J7030

== ENCOUNTER 2019-12-12 06:09 | Inpatient (IN) | payer OTHER, BC ==
[~2019-12-12 06:09] MED LIST changes: -BUPIVACAINE HCL/PF (5 MG/ML) 30 ML VIAL IJ ONE; +BUPIVACAINE HCL/PF 0.25% (2.5MG/ML) 10 ML VIAL IJ ONE; +CEFAZOLIN 2 GM in DEXTROSE 5%-WATER - 50 ML IVPB ONE
[2019-12-12] MEDS ORDERED: ceFAZolin SODIUM 1 GM VIAL ONE ×2 (06:51→20:53)
[2019-12-12] MEDS ORDERED: CEFAZOLIN 2 GM/D5W 2 GM/50 ML ML IVPB ONE (07:00)
[2019-12-12] MEDS ORDERED: THROMBIN (BOVINE) 20,000 UNIT VIAL TP ONE ×2 (07:15→09:28)
[2019-12-12] MEDS ORDERED: GENTAMICIN SO4 80 MG/2 ML VIAL ONE (07:15)
[2019-12-12] MEDS ORDERED: VANCOMYCIN 1,000 MG VIAL (RESTRICTED TO ID ONLY) ONE (07:15)
--- NOTE | 2019-12-12 07:31 | HP ---
History & Physical Update - History History: No Change - Physical Physical: No Change - Assessment Assessment: No Change - Plan Plan: No Change (initial h&p from PCP as well as Dr. Ravi are located in patient's paper chart. No new complaints or medications.)
[2019-12-12] MEDS ORDERED: ceFAZolin SODIUM 1 GM VIAL IVPB ONE ×2 (08:30→12:13)
[2019-12-12] MEDS ORDERED: VANCOMYCIN 1,000 MG VIAL (RESTRICTED TO ID ONLY) IVPB ONE (08:38)
[2019-12-12] MEDS ORDERED: LIDOCAINE 1%-EPI 1:100,000 30 ML MDV IJ ONE (09:03)
[2019-12-12] MEDS ORDERED: LIDOCAINE 1%/EPI 1:100000 (20 ML MULTI DOSE VIAL) IJ ONE (09:15)
[2019-12-12] MEDS ORDERED: THROMBIN (BOVINE) 5,000 UNIT VIAL TP ONE ×2 (09:28→10:11)
[2019-12-12] MEDS ORDERED: BUPIVACAINE LIPOSOME/PF (EXPAREL) 266 MG/20 ML VIAL ONE (09:29)
[2019-12-12] MEDS ORDERED: GELATIN, ABSORBABLE 100 EACH SPONGE TP ONE (10:13)
[2019-12-12] MEDS ORDERED: GENTAMICIN SO4 80 MG/2 ML VIAL IVPB ONE (10:18)
[2019-12-12] MEDS ORDERED: BACITRACIN 50,000 UNITS VIAL TP ONE (10:19)
[2019-12-12] MEDS ORDERED: BUPIVACAINE HCL/PF 0.25% (2.5MG/ML) 10 ML VIAL ONE (10:21)
[2019-12-12] MEDS ORDERED: BUPIVACAINE LIPOSOME/PF (EXPAREL) 266 MG/20 ML VIAL NR ONE (13:15)
[2019-12-12] MEDS ORDERED: BUPIVACAINE HCL/PF 0.25% (2.5MG/ML) 10 ML VIAL IJ ONE (13:15)
[2019-12-12] MEDS ORDERED: ONDANSETRON 4 MG/2 ML VIAL IVPUSH PRN ×3 (14:16→14:26)
[2019-12-12] MEDS ORDERED: NALOXONE HCL 0.4 MG/ML VIAL IVPUSH PRN (14:26)
[2019-12-12] MEDS ORDERED: oxyCODONE HCL 5 MG TABLET PO PRN (14:26)
[2019-12-12] MEDS ORDERED: morphine SULFATE/PF 0.5 MG/ML (2cc Syringe - QUVA) IT ONE (14:26)
[2019-12-12] MEDS ORDERED: LACTATED RINGERS SOLUTION 1,000 ML/1,000 ML INFUS.BAG IV SCH (14:30)
[2019-12-12] MEDS ORDERED: LACTATED RINGERS SOLUTION 1,000 ML IV SCH (14:30)
[2019-12-12] MEDS ORDERED: ACETAMINOPHEN 1000 MG/100 ML VIAL (NON FORMULARY) IVPB SCH (14:30)
--- NOTE | 2019-12-12 14:38 | OP ---
Operative Note - Note: Operative Date: 12/12/19 Pre-Operative Diagnosis: thoracic instability Operation: T5-T11 costovertebral/tranpedicular decompression with osteotomies and arthrodesis. T5-T11 posterior fusion with pedicle screws Surgeon: Lj Ravi Tumbler Operator: Chiquis Pelaez Anesthesiologist/REAL ESTATE MANAGEMENT SPECIALIST: Socrates Greene Anesthesia: General Estimated Blood Loss (mls): 620 Drains, Volume Out (mls): 250 (sethi) Fluid Volume Replaced (mls): 2,000 Operative Report Dictated: Yes
[2019-12-12] MEDS ORDERED: MIDAZOLAM HCL 2 MG/2 ML SINGLE DOSE VIAL ONE (14:55)
[2019-12-12] MEDS ORDERED: MIDAZOLAM HCL 2 MG/2 ML SINGLE DOSE VIAL IVPUSH ONE (15:12)
[2019-12-12] MEDS ORDERED: ACETAMINOPHEN INJECTION 100 ML IVPB ONE (15:19)
[2019-12-12] MEDS: ACETAMINOPHEN 1000 MG/100 ML VIAL (NON FORMULARY) IVPB SCH ×2 (15:20→21:44)
[2019-12-12] MEDS ORDERED: KETOROLAC TROMETHAMINE 30 MG/1 ML VIAL ONE (15:26)
[2019-12-12 15:27] LABS: HEMATOCRIT 29.7 % (35.4-49); MCH 33.5 pg (25.7-33.7); MCHC 33.6 g/dl (32.0-35.9); MEAN CELL VOLUME 99.8 fl (80-96); MEAN PLT VOLUME 7.8 fl (7.5-11.1); PLATELET COUNT 164 K/MM3 (134-434); RBC 2.98 M/mm3 (4.00-5.60)
--- NOTE | 2019-12-12 15:54 | EKG ---
Test Reason : Blood Pressure : / mmHG Vent. Rate : 108 BPM Atrial Rate : 108 BPM P-R Int : 170 ms QRS Dur : 066 ms QT Int : 352 ms P-R-T Axes : 056 -40 004 degrees QTc Int : 471 ms POOR DATA QUALITY, INTERPRETATION MAY BE ADVERSELY AFFECTED SINUS TACHYCARDIA LEFT AXIS DEVIATION ABNORMAL ECG WHEN COMPARED WITH ECG OF 11-APR-2019 13:25, NO SIGNIFICANT CHANGE WAS FOUND Confirmed by MD Esau, Reza ([id number]) on 12/12/2019 3:53:34 PM Referred By: Confirmed By:Reza Cifuentes MD
[2019-12-12] MEDS ORDERED: ACETAMINOPHEN 325 MG TABLET (FP) PO SCH (18:00)
[2019-12-12] MEDS: oxyCODONE HCL 5 MG TABLET PO PRN (18:44)
[2019-12-12] MEDS: ACETAMINOPHEN 1000 MG/100 ML VIAL (NON FORMULARY) IVPB ONE (18:50)
--- NOTE | 2019-12-12 19:01 | PN ---
Progress Note (short form) - Note Progress Note: Called by nurse patient has a fever of 101.2 and tachycardic and BP 98/60. Chart reviewed. Case discussed with TIERRA Sim of Surgery. Patient post op neuro/ ortho surgery. On IV Cefazolin. Postop had chest pain. Troponin normal. Continue with IV Tylenol as ordered prn and pain meds with oxycodone as ordered prn. If with recurrent chest pain overnight will repeat troponin. Will continue to monitor closely. Visit type - Emergency Visit Emergency Visit: Yes ED Registration Date: 12/12/19 Care time: The patient presented to the Emergency Department on the above date and was hospitalized for further evaluation of their emergent condition. - New Patient This patient is new to me today: Yes Date on this admission: 12/12/19 - Critical Care Critical Care patient: No
[2019-12-12 19:56] LABS: ALBUMIN 3.1 g/dl (3.4-5.0); BILIRUBIN,TOTAL 0.5 mg/dL (0.2-1); BLOOD UREA NITROGEN 8.7 mg/dL (7-18); CALCIUM 7.9 mg/dL (8.5-10.1); CREATININE 0.9 mg/dL (0.55-1.3); POTASSIUM 4.6 mmol/L (3.5-5.1); TOT PROT 5.6 g/dl (6.4-8.2)
[2019-12-12] MEDS ORDERED: PT OWN MED DRAWER 7, Y5N ONE (20:54)
[2019-12-12] MEDS ORDERED: DEXTROSE 5%-WATER - 50 ML IVPB ONE (20:54)
[2019-12-12] MEDS: HEPARIN NA (PORCINE) 5,000 UNITS/ML 1ML VIAL SQ SCH (21:01)
[2019-12-12] MEDS: ATORVASTATIN CA 20 MG TABLET (FP) PO SCH (21:01)
[2019-12-12] MEDS: DOCUSATE SODIUM 100 MG CAPSULE (FP) PO SCH (21:01)
[2019-12-12] MEDS: INSULIN SLIDING SCALE (NOVOLOG) 1 VIAL SQ SCH (21:02)
[2019-12-12] MEDS: CEFAZOLIN 1 GM in DEXTROSE 5%-WATER - 50 ML IVPB SCH (21:02)
[2019-12-12] MEDS: LATANOPROST 0.005% OPHTH SOLN 2.5ML BOTTLE OD SCH (23:01)
[2019-12-12] MEDS: BRIMONIDINE TARTRATE 0.2% OPHTHALMIC 5 ML BOTTLE OU SCH (23:02)
[2019-12-13] MEDS: ACETAMINOPHEN 1000 MG/100 ML VIAL (NON FORMULARY) IVPB SCH ×2 (03:37→08:48)
[2019-12-13] MEDS ORDERED: ceFAZolin SODIUM 1 GM VIAL ONE ×3 (04:13→19:48)
[2019-12-13] MEDS ORDERED: DEXTROSE 5%-WATER - 50 ML IVPB ONE ×3 (04:13→19:48)
[2019-12-13] MEDS: CEFAZOLIN 1 GM in DEXTROSE 5%-WATER - 50 ML IVPB SCH ×3 (04:14→20:02)
[2019-12-13] MEDS: oxyCODONE HCL 5 MG TABLET PO PRN (05:10)
[2019-12-13] MEDS ORDERED: FAMOTIDINE 20 MG TABLET PO ONE (05:32)
[2019-12-13] MEDS: HEPARIN NA (PORCINE) 5,000 UNITS/ML 1ML VIAL SQ SCH ×3 (06:10→21:59)
[2019-12-13] MEDS: DOCUSATE SODIUM 100 MG CAPSULE (FP) PO SCH ×3 (06:10→21:59)
[2019-12-13] MEDS: SODIUM CHLORIDE 1,000 ML IV SCH ×3 (06:11→14:52)
[2019-12-13] MEDS: metFORMIN HCL 500 MG TABLET (FP) PO SCH (06:19)
[2019-12-13 07:42] LABS: HEMATOCRIT 22.7 % (35.4-49); MCH 34.7 pg (25.7-33.7); MCHC 35.3 g/dl (32.0-35.9); MEAN CELL VOLUME 98.4 fl (80-96); MEAN PLT VOLUME 7.7 fl (7.5-11.1); PLATELET COUNT 114 K/MM3 (134-434); RBC 2.31 M/mm3 (4.00-5.60); RDW 14.8 % (11.9-15.9); WHITE BLOOD COUNT 6.8 K/mm3 (4.0-10.0)
[2019-12-13] MEDS: INSULIN SLIDING SCALE (NOVOLOG) 1 VIAL SQ SCH ×5 (08:02→23:34)
[2019-12-13] MEDS: ACETAMINOPHEN 1000 MG/100 ML VIAL (NON FORMULARY) IVPB ONE (08:03)
[2019-12-13 08:09] LABS: BLOOD UREA NITROGEN 16.4 mg/dL (7-18); CALCIUM 7.7 mg/dL (8.5-10.1); CREATININE 1.1 mg/dL (0.55-1.3); POTASSIUM 3.9 mmol/L (3.5-5.1)
[2019-12-13] MEDS: FOLIC ACID 1 MG TABLET (FP) PO SCH (09:35)
[2019-12-13] MEDS: LORATADINE 10 MG TABLET PO SCH (09:35)
[2019-12-13] MEDS: PREGABALIN 75 MG CAPSULE PO SCH (09:35)
[2019-12-13] MEDS: LOSARTAN POTASSIUM 50 MG TABLET (FP) PO SCH (09:36)
[2019-12-13] MEDS: FERROUS SO4 325 MG TABLET (FP) PO SCH (09:36)
[2019-12-13] MEDS: PANTOPRAZOLE 20 MG TABLET PO SCH (09:36)
[2019-12-13] MEDS: metoPROLOL SUCCINATE 25 MG TAB.SR.24H (FP) PO SCH (09:36)
[2019-12-13] MEDS: MULTIVITAMINS THER W-MINERALS COMBO TABLET (FP) PO SCH (09:36)
[2019-12-13] MEDS: BRIMONIDINE TARTRATE 0.2% OPHTHALMIC 5 ML BOTTLE OU SCH ×2 (09:37→21:59)
--- NOTE | 2019-12-13 09:37 | CONSULT ---
Consult Consult Specialty:: MEDICINE Referred by:: DR AXEL MEADOWS - History of Present Illness Chief Complaint: S/P T5-T11 SURGERY DECOMPRESSION - History Source History Provided By: Medical Record Limitations to Obtaining History: Other - Past Medical History Cardio/Vascular: Yes: Aneurysm, HTN, Hyperlipdemia Gastrointestinal: Yes: GERD Psych: Yes: Depression Musculoskeletal: Yes: Other (right foot drop) Endocrine: Yes: Diabetes Mellitus - Past Surgical History Past Surgical History: Yes: Laminectomy - Alcohol/Substance Use Hx Alcohol Use: Yes (RARE) - Smoking History Smoking history: Former smoker Have you smoked in the past 12 months: No If you are a former smoker, when did you quit?: 30 YEARS AGO - Social History Usual Living Arrangement: With Spouse ADL: Independent History of Recent Travel: No Home Medications - Allergies Allergies/Adverse Reactions: Allergies Allergy/AdvReac Type Severity Reaction Status Date / Time codeine Allergy Intermediate "stomach Verified 12/12/19 06:47 hurts and itchy" morphine Allergy Unknown "itchy" Verified 12/12/19 06:47 - Home Medications Home Medications: Ambulatory Orders Bimatoprost [Lumigan] 1 drop OD HS 12/13/15 Metoprolol Succinate [Toprol XL -] 1 tab PO DAILY 12/13/15 Atorvastatin Ca [Lipitor] 20 mg PO HS tablet 12/26/15 Aspirin [ASA -] 81 mg PO DAILY 05/06/17 Insulin (Novolog 70/30) [Novolog Mix 70/30 Flexpen -] 60 units SQ BID 05/06/17 Sertraline HCl 50 mg PO DAILY 05/06/17 Cetirizine HCl [Zyrtec -] 10 mg PO DAILY 01/23/19 Furosemide 20 mg PO DAILY 01/23/19 Losartan Potassium 100 mg PO DAILY 01/23/19 metFORMIN HCL [Glucophage -] 1,000 mg PO BID 01/23/19 Brimonidine Tartrate [Alphagan 0.2% -] 1 drop OU BID drops 01/29/19 Pregabalin [Lyrica -] 150 mg PO DAILY 03/20/19 Baclofen 10 mg PO TID 04/10/19 Multivit-Min/FA/Lycopen/Lutein [Centrum Silver Men Tablet] 1 each PO DAILY 04/10 Omeprazole 20 mg PO DAILY 04/10/19 Dulaglutide [Trulicity] 1.5 mg SQ WEEKLY 12/11/19 Review of Systems Findings/Remarks: PATIENT IN BED C/O CHEST AND FLANK DISCOMFORT TRYING TO GET OUT OF BED - Review of Systems Constitutional: reports: Other Cardiovascular: reports: Chest Pain Gastrointestinal: reports: Abdominal Pain Genitourinary: reports: Other Musculoskeletal: reports: Back Pain, Muscle Pain Psychiatric: reports: Anxiety Physical Exam Vital Signs: Vital Signs Temperature 100.2 F H 12/13/19 06:00 Pulse Rate 122 H 12/13/19 06:00 Respiratory Rate 20 12/13/19 06:00 Blood Pressure 115/60 12/13/19 06:00 O2 Sat by Pulse Oximetry (%) 98 12/12/19 22:00 Constitutional: Yes: Moderate Distress Eyes: Yes: WNL HENT: Yes: WNL Neck: Yes: WNL Cardiovascular: Yes: Regular Rate and Rhythm Respiratory: Yes: CTA Bilaterally, Diminished Gastrointestinal: Yes: Soft (FLANK PAIN L>R) Renal/: Yes: Kumar Present Musculoskeletal: Yes: Back Pain Edema: No Wound/Incision: Yes: Dressing Dry and Intact Psychiatric: Yes: Alert (ANXIOUS), Other Labs: CBC, BMP 12/13/19 07:00 12/13/19 07:00 Imaging - Results Chest X-ray: Report Reviewed Cat Scan: Pending Problem List - Problems (1) Thoracic radiculopathy due to degenerative joint disease of spine Code(s): M47.24 - OTHER SPONDYLOSIS WITH RADICULOPATHY, THORACIC REGION (2) S/P spinal surgery Code(s): Z98.890 - OTHER SPECIFIED POSTPROCEDURAL STATES (3) Abdominal pain Code(s): R10.9 - UNSPECIFIED ABDOMINAL PAIN (4) DJD (degenerative joint disease) Code(s): M19.90 - UNSPECIFIED OSTEOARTHRITIS, UNSPECIFIED SITE Qualifiers: Osteoarthritis location: spine Spinal region: lumbar Spinal osteoarthritis complication: with myelopathy Qualified Code(s): M47.16 - Other spondylosis with myelopathy, lumbar region (5) Diabetes Code(s): E11.9 - TYPE 2 DIABETES MELLITUS WITHOUT COMPLICATIONS Qualifiers: Diabetes mellitus type: type 2 Diabetes mellitus senior care insulin use: with extermination inspector use Diabetes mellitus complication status: with unspecified complications (6) GERD (gastroesophageal reflux disease) Code(s): K21.9 - GASTRO-ESOPHAGEAL REFLUX DISEASE WITHOUT ESOPHAGITIS Qualifiers: Esophagitis presence: without esophagitis Qualified Code(s): K21.9 - Gastro -esophageal reflux disease without esophagitis (7) HLD (hyperlipidemia) Code(s): E78.5 - HYPERLIPIDEMIA, UNSPECIFIED (8) HTN (hypertension) Code(s): I10 - ESSENTIAL (PRIMARY) HYPERTENSION Qualifiers: Hypertension type: essential hypertension Qualified Code(s): I10 - Essential (primary) hypertension (9) History of lumbar fusion Code(s): Z98.1 - ARTHRODESIS STATUS (10) Thoracic spinal stenosis Code(s): M48.04 - SPINAL STENOSIS, THORACIC REGION Assessment/Plan POD #1 THORACIC SPINE SURGERY DECOMPRESSION IN BED C/O PAIN. EKG, CXR NO ACUTE CHANGES CTA LUNGS PENDING DOUBT THIS IS CARDIAC OR PULMONARY ISSUE. PAIN IS LIKELY FROM POST-OP SURGERY GAS AND AIR BUILDUP. START WITH ROTATION IN BED SIMETHICONE PRN TYLENOL IV 1000MG X 1 STAT DILAUDID 0.5MG X 1 IV DVT PROPHYLAXIS INCENTIVE SPIROMETRY OOB TO CHAIR WITH P.T.
--- NOTE | 2019-12-13 09:42 | PN ---
Progress Note (short form) - Note Progress Note: ADDENDUM: HEMOGLOBIN DROPPED TO 8 REPEAT CBC AND CARDIAC ENZYMES AND FOLLOW LEVELS OF H/H Problem List - Problems (1) Thoracic radiculopathy due to degenerative joint disease of spine Code(s): M47.24 - OTHER SPONDYLOSIS WITH RADICULOPATHY, THORACIC REGION (2) S/P spinal surgery Code(s): Z98.890 - OTHER SPECIFIED POSTPROCEDURAL STATES (3) Abdominal pain Code(s): R10.9 - UNSPECIFIED ABDOMINAL PAIN (4) DJD (degenerative joint disease) Code(s): M19.90 - UNSPECIFIED OSTEOARTHRITIS, UNSPECIFIED SITE Qualifiers: Osteoarthritis location: spine Spinal region: lumbar Spinal osteoarthritis complication: with myelopathy Qualified Code(s): M47.16 - Other spondylosis with myelopathy, lumbar region (5) Diabetes Code(s): E11.9 - TYPE 2 DIABETES MELLITUS WITHOUT COMPLICATIONS Qualifiers: Diabetes mellitus type: type 2 Diabetes mellitus correction insulin use: with correction use Diabetes mellitus complication status: with unspecified complications (6) GERD (gastroesophageal reflux disease) Code(s): K21.9 - GASTRO-ESOPHAGEAL REFLUX DISEASE WITHOUT ESOPHAGITIS Qualifiers: Esophagitis presence: without esophagitis Qualified Code(s): K21.9 - Gastro -esophageal reflux disease without esophagitis (7) HLD (hyperlipidemia) Code(s): E78.5 - HYPERLIPIDEMIA, UNSPECIFIED (8) HTN (hypertension) Code(s): I10 - ESSENTIAL (PRIMARY) HYPERTENSION Qualifiers: Hypertension type: essential hypertension Qualified Code(s): I10 - Essential (primary) hypertension (9) History of lumbar fusion Code(s): Z98.1 - ARTHRODESIS STATUS (10) Thoracic spinal stenosis Code(s): M48.04 - SPINAL STENOSIS, THORACIC REGION
[2019-12-13] MEDS ORDERED: HYDROmorphone HCl 2 MG/ML VIAL IVPB ONE (09:45)
[2019-12-13] MEDS: SERTRALINE HCL 50 MG TABLET (FP) PO SCH (09:52)
[2019-12-13] MEDS ORDERED: FUROSEMIDE 20 MG TABLET (FP) PO SCH (10:00)
[2019-12-13] MEDS ORDERED: PATIENT'S OWN MEDICATION (NON-FORMULARY) (Insulin (Novolog 70/30) [Novolog Mix 70/30 Flexp SQ SCH (10:00)
--- NOTE | 2019-12-13 10:10 | PN ---
Progress Note (short form) - Note Progress Note: POD#1 PT with complaints of epigastric/sternal pain. No CP or SOB. Vital Signs Period Temp Pulse Resp BP Sys/Sales Pulse Ox Last 24 Hr 16 F-101.4 F 100-125 12-20 96-167/54-98 98-100 BILL: 340 sangrenous FC 600 clear/yellow urine GEN: A&0x3, NAD CV: RR. Tachycardic Lungs: CTA b/l anteriorly Back: Dressing c/d/i. ABD: mild epigastric tenderness. abd slight distended Neuro: paintings conservator strength equal b/l. CBC, BMP 02// 07:00 02// 07:00 A/p; 69 yo male s/p T5-T11 costovertebral/tranpedicular decompression with osteotomies and arthrodesis. T5-T11 posterior fusion with pedicle screws Pt given simethicon for gas and IV pepcid Pain being managed with IV tylenol, oral oxycodone as needed and IV dilaudid x1 Holding metformin, he had CT scan with contrast last pm Pt states that he no longer takes insulin SQ BID and he used his trulicity yesterday(Qweekly) prior to surgery Resume baclofen F/u CT scan of the chest Continue SQ heparin for DVT ppx Monitor H&H daily, will follow drain outpt. His BP remains stable although tachycardic. D/w Dr. Ravi
--- NOTE | 2019-12-13 10:40 | EKG ---
Test Reason : Blood Pressure : / mmHG Vent. Rate : 116 BPM Atrial Rate : 116 BPM P-R Int : 182 ms QRS Dur : 058 ms QT Int : 324 ms P-R-T Axes : 020 -32 -14 degrees QTc Int : 450 ms SINUS TACHYCARDIA LEFT AXIS DEVIATION INFERIOR INFARCT , AGE UNDETERMINED ABNORMAL ECG WHEN COMPARED WITH ECG OF 12-DEC-2019 14:43, INFERIOR INFARCT IS NOW PRESENT Confirmed by Derian Morales MD ([id number]) on 12/13/2019 10:40:39 AM Referred By: Confirmed By:Derian oMrales MD
--- NOTE | 2019-12-13 10:57 | PN ---
Progress Note (short form) - Note Progress Note: ID consult dictated postop fever pod #1 cultures sent chest cta pending dressing on back intact with serous drainage in the J drain continue periop cefazolin per surgical team encourage incentive spirometry sethi out when able wbc normal postop anemia- repeat cbc this am Problem List - Problems (1) Postoperative fever Code(s): R50.82 - POSTPROCEDURAL FEVER (2) S/P spinal surgery Code(s): Z98.890 - OTHER SPECIFIED POSTPROCEDURAL STATES
[2019-12-13 11:47] LABS: HEMATOCRIT 22.2 % (35.4-49); HEMOGLOBIN 7.5 GM/dL (11.7-16.9); MCH 33.9 pg (25.7-33.7); MEAN CELL VOLUME 99.7 fl (80-96); MEAN PLT VOLUME 7.4 fl (7.5-11.1); PLATELET COUNT 111 K/MM3 (134-434); RBC 2.23 M/mm3 (4.00-5.60); RDW 14.6 % (11.9-15.9); WHITE BLOOD COUNT 6.7 K/mm3 (4.0-10.0)
--- NOTE | 2019-12-13 12:31 | PN ---
Progress Note (short form) - Note Progress Note: PULMONARY CONSULTATION DICTATED 12/13/19 IMP CHEST PAIN LIKELY SECONDARY TO RECENT SURGERY S/P T5-T11 DECOMPRESSION AND POSTERIOR FUSION NIDDM HTN HLD LEFT EYE GLAUCOMA H/O THORACIC AORTIC ANEURYSM FEVER ANEMIA PLAN ANALGESICS INCENTIVE SPIROMETER NASAL O2 NEEDED DVT PROPHYLAXIS ABX PER ID MONITOR LYTES,H+H NORMAL TRANSFUSION THRESHOLD DR BYNUM Problem List - Problems (1) S/P spinal surgery Code(s): Z98.890 - OTHER SPECIFIED POSTPROCEDURAL STATES (2) Thoracic radiculopathy due to degenerative joint disease of spine Code(s): M47.24 - OTHER SPONDYLOSIS WITH RADICULOPATHY, THORACIC REGION (3) GERD (gastroesophageal reflux disease) Code(s): K21.9 - GASTRO-ESOPHAGEAL REFLUX DISEASE WITHOUT ESOPHAGITIS Qualifiers: Esophagitis presence: without esophagitis Qualified Code(s): K21.9 - Gastro -esophageal reflux disease without esophagitis (4) HLD (hyperlipidemia) Code(s): E78.5 - HYPERLIPIDEMIA, UNSPECIFIED (5) HTN (hypertension) Code(s): I10 - ESSENTIAL (PRIMARY) HYPERTENSION Qualifiers: Hypertension type: essential hypertension Qualified Code(s): I10 - Essential (primary) hypertension (6) Thoracic aortic aneurysm Code(s): I71.2 - THORACIC AORTIC ANEURYSM, WITHOUT RUPTURE (7) Thoracic spinal stenosis Code(s): M48.04 - SPINAL STENOSIS, THORACIC REGION (8) Chest pain Code(s): R07.9 - CHEST PAIN, UNSPECIFIED (9) Dyspnea Code(s): R06.00 - DYSPNEA, UNSPECIFIED (10) Fever Code(s): R50.9 - FEVER, UNSPECIFIED (11) Anemia Code(s): D64.9 - ANEMIA, UNSPECIFIED
[2019-12-13] MEDS: SIMETHICONE 80 MG TAB.CHEW (FP) PO PRN (12:39)
--- NOTE | 2019-12-13 13:05 | CONS ---
DATE OF CONSULTATION: DATE OF DICTATION: 12/13/2019 INFECTIOUS DISEASE CONSULTATION HISTORY OF PRESENT ILLNESS: This is a 69-year-old man who is admitted on the for back surgery. His preoperative diagnosis was thoracic instability, and he underwent T5, T11 decompression and posterior effusion with pedicle with Dr. Lj French. I am asked to see him by Dr. Evans for postoperative fever on postoperative day number 1. He is still on cephazolin after surgery. PAST MEDICAL HISTORY: Notable for history of hypertension, hyperlipidemia. He has left eye glaucoma, right eye cataracts. He has had multiple spine surgeries. He is wheelchair dependent. His most recent back surgery prior to this one was in December 2018 when he underwent cervical spine surgery. He has a history as well of hypertension, hyperlipidemia, GERD, depression, right foot drop, and diabetes, and prior to the cervical laminectomy he had 2 prior lumbar surgeries. He has a history of abdominal aortic aneurysm in the past as well. ALLERGIES: He is allergic to CODEINE and MORPHINE. SOCIAL HISTORY: He lives at home with his . He is a former smoker. CURRENT MEDICATIONS: His current medications as an outpatient include metformin, sertraline, Lyrica, omeprazole, centrum vitamins, Toprol XL, losartan, insulin, Trulicity, Lumigan and Alphagan eyedrops, baclofen, Lipitor, and aspirin. REVIEW OF SYSTEMS: His current review of systems, since the surgery he has had fever, no chills or shakes. He reports chest discomfort. He had an episode of vomiting when physical therapy tried to stand him this morning. He still has a Kumar in place at this time. PHYSICAL EXAMINATION: General: He is awake and alert. He looks comfortable. Vital Signs: His T-max was 101.4, currently temperature is 98, pulse of 122, blood pressure is 112/68, respiratory rate is 20. HEENT: Normocephalic. Eyes are anicteric. Neck: Supple. Lungs: Clear to auscultation anteriorly. He has a dressing of his entire thoracic spine on the back. He has a BILL drain with serous drainage. Heart: Tachycardic. Abdomen: Soft. He has a Kumar in place. There is no evidence of any lower extremity edema. Extremities: His right arm is a little swollen, suggested removing the IV and using the left arm at this time. LABORATORY: White count is 6.8, hemoglobin is 8, platelets are 114. His BUN and creatinine are 9 and 1.1, his urinalysis was not done. Urine and blood cultures have been sent. He had a chest CTA done overnight for tachycardia that shows no evidence of PE. He has mild aneurysmal dilatation of the ascending aorta. He has some atelectatic changes. He is status post effusion of the thoracic spine, and he has got a BILL drain in place. IMPRESSION: 1. In summary, this is a 69-year-old man postoperative day 1 with postoperative fever, also postoperative anemia who has no clear signs of infection at this time. Cultures have been sent. Chest CTA as stated. Dressing on his back is intact with serous drainage in the Esa-Joseph drain. Would continue perioperative cephazolin for surgery. Would encourage incentive spirometer. Kumar out when he is ready, and white cells are normal at this time. 2. Postoperative anemia, repeat complete blood count has been ordered. Further recommendations to follow. John [id number]
--- NOTE | 2019-12-13 13:29 | CONSULT ---
Consult Consult Specialty:: Nephrology Reason for Consultation:: hypocalcemia - History of Present Illness Chief Complaint: s/p back surgery History of Present Illness: Pt is a 69 year old male who is s/p t5 to t11 spinal fusion surgery. He has history fo gerd, htn and dm. He was found to be hypocalcemic and I was called to evaluate him. He complains of post op discomfort. He was found to have fever , hypotension and tachycardia. He denies history of CKD. He denies dysuria or hematuria. - History Source History Provided By: Patient - Past Medical History Cardio/Vascular: Yes: Aneurysm, HTN, Hyperlipdemia Gastrointestinal: Yes: GERD Psych: Yes: Depression Musculoskeletal: Yes: Other (right foot drop) Endocrine: Yes: Diabetes Mellitus - Past Surgical History Past Surgical History: Yes: Laminectomy - Alcohol/Substance Use Hx Alcohol Use: Yes (RARE) - Smoking History Smoking history: Former smoker Have you smoked in the past 12 months: No If you are a former smoker, when did you quit?: 30 YEARS AGO - Social History Usual Living Arrangement: With Spouse ADL: Independent History of Recent Travel: No Home Medications - Allergies Allergies/Adverse Reactions: Allergies Allergy/AdvReac Type Severity Reaction Status Date / Time codeine Allergy Intermediate "stomach Verified 12/12/19 06:47 hurts and itchy" morphine Allergy Unknown "itchy" Verified 12/12/19 06:47 - Home Medications Home Medications: Ambulatory Orders Bimatoprost [Lumigan] 1 drop OD HS 12/13/15 Metoprolol Succinate [Toprol XL -] 1 tab PO DAILY 12/13/15 Atorvastatin Ca [Lipitor] 20 mg PO HS tablet 12/26/15 Aspirin [ASA -] 81 mg PO DAILY 05/06/17 Insulin (Novolog 70/30) [Novolog Mix 70/30 Flexpen -] 60 units SQ BID 05/06/17 Sertraline HCl 50 mg PO DAILY 05/06/17 Cetirizine HCl [Zyrtec -] 10 mg PO DAILY 01/23/19 Furosemide 20 mg PO DAILY 01/23/19 Losartan Potassium 100 mg PO DAILY 01/23/19 metFORMIN HCL [Glucophage -] 1,000 mg PO BID 01/23/19 Brimonidine Tartrate [Alphagan 0.2% -] 1 drop OU BID drops 01/29/19 Pregabalin [Lyrica -] 150 mg PO DAILY 03/20/19 Baclofen 10 mg PO TID 04/10/19 Multivit-Min/FA/Lycopen/Lutein [Centrum Silver Men Tablet] 1 each PO DAILY 04/10 Omeprazole 20 mg PO DAILY 04/10/19 Dulaglutide [Trulicity] 1.5 mg SQ WEEKLY 12/11/19 Family Medical History Family History: Denies Review of Systems - Review of Systems Constitutional: reports: Malaise Eyes: reports: No Symptoms HENT: reports: No Symptoms Cardiovascular: reports: No Symptoms Respiratory: reports: No Symptoms Gastrointestinal: reports: No Symptoms Musculoskeletal: reports: Back Pain Neurological: reports: No Symptoms Psychiatric: reports: No Symptoms Physical Exam Vital Signs: Vital Signs Temperature 98 F 12/13/19 09:00 Pulse Rate 122 H 12/13/19 09:00 Respiratory Rate 20 12/13/19 09:00 Blood Pressure 112/68 12/13/19 09:00 O2 Sat by Pulse Oximetry (%) 98 12/12/19 22:00 Constitutional: Yes: Calm Eyes: Yes: Conjunctiva Clear HENT: Yes: Atraumatic Cardiovascular: Yes: S1, S2 Respiratory: Yes: CTA Bilaterally, On Nasal O2 Gastrointestinal: Yes: Soft Renal/: Yes: WNL Musculoskeletal: Yes: Back Pain Edema: No Neurological: Yes: Oriented Psychiatric: Yes: Oriented Labs: CBC, BMP 12/13/19 11:35 12/13/19 07:00 Problem List - Problems (1) Diabetes Code(s): E11.9 - TYPE 2 DIABETES MELLITUS WITHOUT COMPLICATIONS Qualifiers: Diabetes mellitus type: type 2 Diabetes mellitus extermination inspector insulin use: with assisted use Diabetes mellitus complication status: with unspecified complications (2) GERD (gastroesophageal reflux disease) Code(s): K21.9 - GASTRO-ESOPHAGEAL REFLUX DISEASE WITHOUT ESOPHAGITIS Qualifiers: Esophagitis presence: without esophagitis Qualified Code(s): K21.9 - Gastro -esophageal reflux disease without esophagitis (3) HLD (hyperlipidemia) Code(s): E78.5 - HYPERLIPIDEMIA, UNSPECIFIED (4) HTN (hypertension) Code(s): I10 - ESSENTIAL (PRIMARY) HYPERTENSION Qualifiers: Hypertension type: essential hypertension Qualified Code(s): I10 - Essential (primary) hypertension Assessment/Plan Current Medications Generic Name Dose Route Start Last Admin Trade Name Freq PRN Reason Stop Dose Admin Al Hydroxide/Mg Hydroxide 30 ml 12/13/19 09:39 Mylanta Oral Suspension - PO Q6H PRN DYSPEPSIA Atorvastatin Calcium 20 mg 12/12/19 22:00 12/12/19 21:01 Lipitor - PO 20 mg HS OVI Administration Baclofen 10 mg 12/13/19 14:00 Lioresal - PO TID OVI Brimonidine Tartrate 1 drop 12/12/19 22:00 12/13/19 09:37 Alphagan 0.2% - OU 1 drop BID OVI Administration Diphenhydramine HCl 25 mg 12/12/19 14:16 Benadryl - PO Q6H PRN FOR ITCHING Diphenhydramine HCl 25 mg 12/12/19 14:26 12/12/19 23:01 Benadryl Injection - IVPUSH 25 mg ONCE PRN Administration FOR ITCHING Docusate Sodium 100 mg 12/12/19 22:00 12/13/19 06:10 Colace - PO 100 mg TID OVI Administration Ferrous Sulfate 325 mg 12/13/19 10:00 12/13/19 09:36 Feosol - PO 325 mg DAILY OVI Administration Folic Acid 1 mg 12/13/19 10:00 12/13/19 09:35 Folic Acid - PO 1 mg DAILY OVI Administration Furosemide 20 mg 12/13/19 10:00 12/13/19 09:35 Lasix - PO 20 mg DAILY OVI Administration Heparin Sodium (Porcine) 5,000 unit 12/12/19 22:00 12/13/19 06:10 Heparin - SQ 5,000 unit Q8H OVI Administration Cefazolin Sodium 1 gm/ 50 mls @ 100 mls/hr 12/12/19 20:30 12/13/19 12:39 Dextrose IVPB 100 mls/hr Q8H OVI Administration Sodium Chloride 1,000 mls @ 125 mls/hr 12/12/19 14:45 12/13/19 08:02 Normal Saline - IV Not Given ASDIR [facility] Insulin Aspart 1 vial 12/12/19 16:30 12/13/19 11:46 Novolog Vial Sliding Scale - SQ 2 unit ACHS OVI Administration Protocol Latanoprost 1 drop 12/12/19 22:00 12/12/19 23:01 Xalatan 0.005% Eye Drops - OD 1 drop HS [facility] Administration Loratadine 10 mg 12/13/19 10:00 12/13/19 09:35 Claritin - PO 10 mg DAILY [facility] Administration Losartan Potassium 100 mg 12/13/19 10:00 12/13/19 09:36 Cozaar - PO 100 mg DAILY OVI Administration Metformin HCl 1,000 mg 12/13/19 07:00 12/13/19 06:19 Glucophage - PO Not Given BIDAC [facility] Metoprolol Succinate 25 mg 12/13/19 10:00 12/13/19 09:36 Toprol Xl - PO 25 mg DAILY [facility] Administration Multivitamins/Minerals 1 each 12/13/19 10:00 12/13/19 09:36 Theragran-M PO 1 each DAILY [facility] Administration Naloxone HCl 0.4 mg 12/12/19 14:26 Narcan - IVPUSH ONCE PRN Sedation Ondansetron HCl 4 mg 12/13/19 12:38 Zofran Injection IVPUSH Q6H PRN NAUSEA Oxycodone HCl 5 mg 12/12/19 14:26 Roxicodone - PO 12/13/19 14:25 Q3H PRN Mild Pain 1-3 Oxycodone HCl 10 mg 12/12/19 14:26 12/13/19 05:10 Roxicodone - PO 12/13/19 14:25 10 mg Q3H PRN Administration Moderate Pain 4-6 Oxycodone HCl 10 mg 12/13/19 14:26 Oxycontin - PO BID [facility] Pantoprazole Sodium 20 mg 12/13/19 10:00 12/13/19 09:36 Protonix - PO 20 mg DAILY [facility] Administration Pregabalin 150 mg 12/13/19 10:00 12/13/19 09:35 Lyrica - PO 150 mg DAILY [facility] Administration Sertraline HCl 50 mg 12/13/19 10:00 12/13/19 09:52 Zoloft - PO 50 mg DAILY [facility] Administration Simethicone 80 mg 12/13/19 09:39 12/13/19 12:39 Mylicon - PO 80 mg Q4H PRN Administration DYSPEPSIA Impression 1. hypocalcemia with corrected low normal 2. dm 3. htn 4. s/p back surgery 5. gerd 6. mild rhabdo Plan - will give calcium supplements - pt on both lasix and fluids, can hold lasix and decrease rate of fluids - repeat labs in am with albumin - avoid nsaids for now - mild rhabdo post op - repeat cpk in am
[2019-12-13] MEDS: oxyCODONE HCL 10 MG SUSTAINED ACTING TABLET PO SCH ×2 (13:33→21:58)
[2019-12-13] MEDS: ONDANSETRON 4 MG/2 ML VIAL IVPUSH PRN (13:34)
[2019-12-13] MEDS: BACLOFEN 10 MG TABLET (FP) PO SCH ×2 (13:34→21:40)
--- NOTE | 2019-12-13 14:11 | CONS ---
PULMONARY CONSULTATION DATE OF CONSULTATION: 12/13/2019 REFERRING PHYSICIAN: Bj Evans MD HISTORY OF PRESENT ILLNESS: Patient is a 69-year-old male, known to me from previous hospitalization, with past medical history of diabetes, hypertension, hyperlipidemia, thoracic aortic aneurysm, GERD, syncope, with chronic back pain status post laminectomy, admitted to [facility] on December 12 secondary to T5, T11 decompression and posterior fusion. The patient tolerated the procedure well without complications. Postop, the patient developed chest pain and tachycardia. He underwent a CTA of the chest, which revealed no evidence of pulmonary embolism and/or infiltrates. He was also placed on antibiotic therapy. Patient denies any hemoptysis. Does complain of chest pain increasing with inspiration. He also complained of abdominal discomfort. He denies any history of occupational exposure to chemicals or fumes. There is no history of COPD or asthma in the past. There is a remote history of smoking many, many years ago. He was evaluated by Dr. Coyle and continued on antibiotics. He was evaluated by Dr. Evans for a medical consultation. PAST MEDICAL HISTORY: Again includes hypertension, hyperlipidemia, chronic back pain, multiple spinal surgeries, left eye glaucoma, [id number] diabetes, history of thoracic aortic aneurysm, status post T5, T11 decompression and posterior fusion. REVIEW OF SYSTEMS: Positive chest discomfort. Positive mild shortness of breath. No hemoptysis. Positive fever; T-maximum 101.4. No chills. Positive mild epigastric pain. No lower extremity discomfort. CURRENT MEDICATIONS: Include Zofran, Alphagan eyedrops, Cozaar, Mylanta oral suspension, cefazolin, heparin, Lyrica, Colace, Mylicon, Toprol, Glucophage, Benadryl, , Lipitor, NovoLog, Feosol, Lasix, Theragran, Roxicodone. PHYSICAL EXAMINATION: General: Patient is a well-developed, well-nourished male, awake, alert, complaining of chest discomfort and GI discomfort, but in no acute distress. Vital Signs: He is currently afebrile. T-maximum was 101.4. Heart rate is 122, blood pressure is 112/68, respiratory rate is 20, O2 saturation is 100% on 2 L nasal cannula. HEENT: Exam is normocephalic, atraumatic. Neck: Supple. Heart: Tachycardic S1 and S2. Chest: Poor inspiratory effort. Abdomen: Soft. Mildly distended. Extremities: No cyanosis, edema. LABORATORIES: WBC is 6.7, hemoglobin 7.5, hematocrit 22.2, with a platelet count of 111,000. BUN 16, creatinine 1.1. CK is 902. Chest CT: No evidence of any infiltrates or effusions. No evidence of pulmonary emboli. IMPRESSION: 1. Chest pain. Likely secondary to recent surgery. No evidence of PE on CTA of the chest or significant abnormalities on chest CT. 2. Status post T5, T11 decompression and posterior fusion. 3. Fever. Most likely postop atelectasis. 4. Hqq-lyaasch-bdvaonrde diabetes mellitus. 5. Hypertension. 6. Hyperlipidemia. 7. Left eye glaucoma. 8. Anemia. Suggest analgesics, incentive spirometer, normal transfusion threshold, nasal O2 as needed, DVT prophylaxis. Antibiotics, as per Infectious Disease. Pancultures. Monitor electrolytes, as well as hemoglobin and hematocrit. Will continue his telemetry monitoring. RENATE BYNUM M.D. [id number]
[2019-12-13] MEDS: CALCIUM 500MG/VIT-D 200 UNITS COMBO TABLET (FP) PO SCH (14:49)
[2019-12-13 16:56] LABS: URINE APPEARANCE CLEAR; URINE BILIRUBIN NEGATIVE (NEGATIVE); URINE COLOR YELLOW; URINE GLUCOSE (UA) TRACE (NEGATIVE); URINE KETONE NEGATIVE (NEGATIVE); URINE LEUK ESTERASE NEGATIVE (NEGATIVE); URINE NITRITE NEGATIVE (NEGATIVE); URINE PROTEIN NEGATIVE (NEGATIVE); URINE UROBILINOGEN 0.2 mg/dL (0.2-1.0)
[2019-12-13] MEDS: ACETAMINOPHEN 1000 MG/100 ML VIAL (NON FORMULARY) IVPB PRN (18:26)
[2019-12-13] MEDS ORDERED: IRON SUCROSE INJECTION 300 MG in SODIUM CHLORIDE 235 ML IVPB ONE (18:58)
[2019-12-13] MEDS ORDERED: FUROSEMIDE 40 MG/4 ML INJECTABLE VIAL IVPUSH ONE (21:00)
[2019-12-13] MEDS: ATORVASTATIN CA 20 MG TABLET (FP) PO SCH (21:58)
[2019-12-13] MEDS: LATANOPROST 0.005% OPHTH SOLN 2.5ML BOTTLE OD SCH (21:59)
[2019-12-14] MEDS: ACETAMINOPHEN 1000 MG/100 ML VIAL (NON FORMULARY) IVPB PRN ×2 (01:35→11:08)
[2019-12-14] MEDS: ONDANSETRON 4 MG/2 ML VIAL IVPUSH PRN (01:36)
[2019-12-14 02:34] LABS: HEMATOCRIT 25.2 % (35.4-49); HEMOGLOBIN 8.8 GM/dL (11.7-16.9); MCH 33.8 pg (25.7-33.7); MCHC 34.8 g/dl (32.0-35.9); MEAN CELL VOLUME 96.9 fl (80-96); MEAN PLT VOLUME 8.1 fl (7.5-11.1); PLATELET COUNT 108 K/MM3 (134-434); RDW 15.1 % (11.9-15.9)
[2019-12-14] MEDS ORDERED: DEXTROSE 5%-WATER - 50 ML IVPB ONE ×3 (04:35→20:51)
[2019-12-14] MEDS ORDERED: ceFAZolin SODIUM 1 GM VIAL ONE ×3 (04:35→20:51)
[2019-12-14] MEDS: CEFAZOLIN 1 GM in DEXTROSE 5%-WATER - 50 ML IVPB SCH ×3 (04:37→21:03)
[2019-12-14] MEDS: BACLOFEN 10 MG TABLET (FP) PO SCH ×3 (05:44→21:10)
[2019-12-14] MEDS: HEPARIN NA (PORCINE) 5,000 UNITS/ML 1ML VIAL SQ SCH ×3 (05:44→21:03)
[2019-12-14] MEDS: DOCUSATE SODIUM 100 MG CAPSULE (FP) PO SCH ×3 (05:44→21:03)
[2019-12-14] MEDS: INSULIN SLIDING SCALE (NOVOLOG) 1 VIAL SQ SCH ×4 (06:02→21:08)
--- NOTE | 2019-12-14 09:05 | PN ---
Progress Note (short form) - Note Progress Note: POD#2 PT with complaints of epigastric/sternal pain, increased with deep respiration. Tolerated some sips of clears. Vital Signs Period Temp Pulse Resp BP Sys/Sales Pulse Ox Last 24 Hr 98.2 F-101 F 100-125 18-21 109-155/60-79 100 BILL: 230 sangrenous until midnight FC:2900 dark yellow urine GEN: A&0x3, NAD CV: RR. Tachycardic Lungs: CTA b/l anteriorly Back: Dressing c/d/i. ABD: mild epigastric tenderness. abd less distended. Neuro: motion study technician strength equal b/l. 5/5 dorsi/plantar b/l LE: no calf tenderness or swelling noted b/l CBC, BMP 12/14/19 01:59 12/13/19 07:00 Microbiology 12/12/19 21:05 Blood - Peripheral Venous Blood Culture - Preliminary NO GROWTH OBTAINED AFTER 24 HOURS, INCUBATION TO CONTINUE FOR 4 DAYS. 12/12/19 21:05 Blood - Peripheral Venous Blood Culture - Preliminary NO GROWTH OBTAINED AFTER 24 HOURS, INCUBATION TO CONTINUE FOR 4 DAYS. Laboratory Tests 12/13/19 16:00 Urine Color Yellow Urine Appearance Clear Urine pH 5.0 Ur Specific [place] 1.017 Urine Protein Negative Urine Glucose (UA) Trace Urine Ketones Negative Urine Blood Negative Urine Nitrite Negative Urine Bilirubin Negative Urine Urobilinogen 0.2 Ur Leukocyte Esterase Negative A/p; 69 yo male s/p T5-T11 costovertebral/tranpedicular decompression with osteotomies and arthrodesis. T5-T11 posterior fusion with pedicle screws s/p I unit PRBC last pm, second dose not given because of fever. Agressive OOB to chair/PT/incentive spirometer. Pt with fever, CXR post-op with atlectasis, cultures pending. DVT PPX with Heparin SQ/SCDs Will f/u labs cbc/chem, hold second unit PRBC Resume oral lasix Pain managment with oral pain meds, continue stool softners to avoid constipation D/w Dr. Ravi
[2019-12-14] MEDS ORDERED: PT OWN MED DRAWER 7, Y5N ONE ×3 (09:41→20:50)
[2019-12-14] MEDS: FOLIC ACID 1 MG TABLET (FP) PO SCH (09:46)
[2019-12-14] MEDS: metoPROLOL SUCCINATE 25 MG TAB.SR.24H (FP) PO SCH (09:46)
[2019-12-14] MEDS: MULTIVITAMINS THER W-MINERALS COMBO TABLET (FP) PO SCH (09:46)
[2019-12-14] MEDS: PREGABALIN 75 MG CAPSULE PO SCH (09:46)
[2019-12-14] MEDS: FERROUS SO4 325 MG TABLET (FP) PO SCH (09:46)
[2019-12-14] MEDS: PANTOPRAZOLE 20 MG TABLET PO SCH (09:46)
[2019-12-14] MEDS: LORATADINE 10 MG TABLET PO SCH (09:46)
[2019-12-14] MEDS: LOSARTAN POTASSIUM 50 MG TABLET (FP) PO SCH (09:46)
[2019-12-14] MEDS: SERTRALINE HCL 50 MG TABLET (FP) PO SCH (09:46)
[2019-12-14] MEDS: BRIMONIDINE TARTRATE 0.2% OPHTHALMIC 5 ML BOTTLE OU SCH ×2 (09:47→21:10)
[2019-12-14] MEDS: oxyCODONE HCL 10 MG SUSTAINED ACTING TABLET PO SCH ×2 (09:47→21:02)
[2019-12-14] MEDS: CALCIUM 500MG/VIT-D 200 UNITS COMBO TABLET (FP) PO SCH (09:49)
[2019-12-14] MEDS: FUROSEMIDE 20 MG TABLET (FP) PO SCH (10:38)
--- NOTE | 2019-12-14 10:41 | PN ---
Progress Note, Physician Chief Complaint: Thoracic Instability S/p T5-T11 posterior fusion History of Present Illness: Previous notes and events reviewed awake and alert c/o burning chest pain denies dizziness noted with epigastric tenderness on palpation - Current Medication List Current Medications: Active Medications Acetaminophen (Ofirmev Injection -) 1,000 mg IVPB Q6H PRN PRN Reason: FEVER Stop: 12/14/19 18:16 Last Admin: 12/14/19 01:35 Dose: 1,000 mg Al Hydroxide/Mg Hydroxide (Mylanta Oral Suspension -) 30 ml PO Q6H PRN PRN Reason: DYSPEPSIA Atorvastatin Calcium (Lipitor -) 20 mg PO HS [facility] Last Admin: 12/13/19 21:58 Dose: 20 mg Baclofen (Lioresal -) 10 mg PO TID [facility] Last Admin: 12/14/19 05:44 Dose: 10 mg Brimonidine Tartrate (Alphagan 0.2% -) 1 drop OU BID [facility] Last Admin: 12/14/19 09:47 Dose: 1 drop Calcium Carbonate/Cholecalciferol (Os-Wilbur 500+D -) 2 tab PO DAILY [facility] Last Admin: 12/14/19 09:49 Dose: 2 tab Diphenhydramine HCl (Benadryl -) 25 mg PO Q6H PRN PRN Reason: FOR ITCHING Diphenhydramine HCl (Benadryl Injection -) 25 mg IVPUSH ONCE PRN PRN Reason: FOR ITCHING Last Admin: 12/12/19 23:01 Dose: 25 mg Docusate Sodium (Colace -) 100 mg PO TID [facility] Last Admin: 12/14/19 05:44 Dose: 100 mg Ferrous Sulfate (Feosol -) 325 mg PO DAILY [facility] Last Admin: 12/14/19 09:46 Dose: 325 mg Folic Acid (Folic Acid -) 1 mg PO DAILY [facility] Last Admin: 12/14/19 09:46 Dose: 1 mg Furosemide (Lasix -) 20 mg PO DAILY [facility] Last Admin: 12/14/19 10:38 Dose: 20 mg Heparin Sodium (Porcine) (Heparin -) 5,000 unit SQ Q8H [facility] Last Admin: 12/14/19 05:44 Dose: 5,000 unit Cefazolin Sodium 1 gm/ (Dextrose) 50 mls @ 100 mls/hr IVPB Q8H [facility] Last Admin: 12/14/19 04:37 Dose: 100 mls/hr Sodium Chloride (Normal Saline -) 1,000 mls @ 100 mls/hr IV ASDIR [facility] Last Admin: 12/13/19 14:52 Dose: Not Given Insulin Aspart (Novolog Vial Sliding Scale -) 1 vial SQ ACHS [facility]; Protocol Last Admin: 12/14/19 06:02 Dose: Not Given Latanoprost (Xalatan 0.005% Eye Drops -) 1 drop OD HS [facility] Last Admin: 12/13/19 21:59 Dose: 1 drop Loratadine (Claritin -) 10 mg PO DAILY [facility] Last Admin: 12/14/19 09:46 Dose: 10 mg Losartan Potassium (Cozaar -) 100 mg PO DAILY [facility] Last Admin: 12/14/19 09:46 Dose: 100 mg Metformin HCl (Glucophage -) 1,000 mg PO BIDAC [facility] Last Admin: 12/13/19 06:19 Dose: Not Given Metoprolol Succinate (Toprol Xl -) 25 mg PO DAILY [facility] Last Admin: 12/14/19 09:46 Dose: 25 mg Multivitamins/Minerals (Theragran-M) 1 each PO DAILY [facility] Last Admin: 12/14/19 09:46 Dose: 1 each Naloxone HCl (Narcan -) 0.4 mg IVPUSH ONCE PRN PRN Reason: Sedation Ondansetron HCl (Zofran Injection) 4 mg IVPUSH Q6H PRN PRN Reason: NAUSEA Last Admin: 12/14/19 01:36 Dose: 4 mg Oxycodone HCl (Oxycontin -) 10 mg PO BID [facility] Last Admin: 12/14/19 09:47 Dose: 10 mg Pantoprazole Sodium (Protonix -) 20 mg PO DAILY [facility] Last Admin: 12/14/19 09:46 Dose: 20 mg Pregabalin (Lyrica -) 150 mg PO DAILY [facility] Last Admin: 12/14/19 09:46 Dose: 150 mg Sertraline HCl (Zoloft -) 50 mg PO DAILY [facility] Last Admin: 12/14/19 09:46 Dose: 50 mg Simethicone (Mylicon -) 80 mg PO Q4H PRN PRN Reason: DYSPEPSIA Last Admin: 12/13/19 12:39 Dose: 80 mg - Objective Vital Signs: Vital Signs Temperature 98.2 F 12/14/19 08:29 Pulse Rate 115 H 12/14/19 08:29 Respiratory Rate 19 12/14/19 08:29 Blood Pressure 132/77 12/14/19 08:29 O2 Sat by Pulse Oximetry (%) 100 12/13/19 21:00 Constitutional: Yes: No Distress, Calm Eyes: Yes: Conjunctiva Clear HENT: Yes: Atraumatic Cardiovascular: Yes: Regular Rate and Rhythm Respiratory: Yes: Regular, Diminished, On Nasal O2 Gastrointestinal: Yes: Normal Bowel Sounds, Soft, Tenderness, Epigastrium Musculoskeletal: Yes: Muscle Weakness Extremities: Yes: WNL Edema: No Neurological: Yes: Alert, Oriented Psychiatric: Yes: Alert, Oriented Labs: CBC, BMP 12/14/19 01:59 12/13/19 07:00 Microbiology 12/12/19 21:45 Urine - Urine Kumar Urine Culture - Final NO GROWTH OBTAINED 12/12/19 21:05 Blood - Peripheral Venous Blood Culture - Preliminary NO GROWTH OBTAINED AFTER 24 HOURS, INCUBATION TO CONTINUE FOR 4 DAYS. 12/12/19 21:05 Blood - Peripheral Venous Blood Culture - Preliminary NO GROWTH OBTAINED AFTER 24 HOURS, INCUBATION TO CONTINUE FOR 4 DAYS. Problem List - Problems (1) Anemia Assessment/Plan: -Hg 8.8 -monitor Hg daily -Anemia profile -transfuse for Hg <8.0 -Ferrous Sulfate and Folic Acid Code(s): D64.9 - ANEMIA, UNSPECIFIED (2) Chest pain Assessment/Plan: -Tele monitoring -Cardiology consult -Chest CTA neg for PE -trop neg x 3 Code(s): R07.9 - CHEST PAIN, UNSPECIFIED (3) Abdominal pain Assessment/Plan: -GI consult -pantoprazole -simethicone prn Code(s): R10.9 - UNSPECIFIED ABDOMINAL PAIN (4) Diabetes Assessment/Plan: -[facility] -HgA1c -diabetic diet Code(s): E11.9 - TYPE 2 DIABETES MELLITUS WITHOUT COMPLICATIONS Qualifiers: Diabetes mellitus type: type 2 Diabetes mellitus long goods drier insulin use: with long goods drier use Diabetes mellitus complication status: with unspecified complications (5) HLD (hyperlipidemia) Assessment/Plan: -Atorvastatin Code(s): E78.5 - HYPERLIPIDEMIA, UNSPECIFIED (6) HTN (hypertension) Assessment/Plan: -Losartan Code(s): I10 - ESSENTIAL (PRIMARY) HYPERTENSION Qualifiers: Hypertension type: essential hypertension Qualified Code(s): I10 - Essential (primary) hypertension (7) S/P lumbar fusion Assessment/Plan: -POD #2 T5-T11 posterior fusion -Neurosurgery on board -PT -fall precaution -pain control -dvt ppx -Cefazolin Code(s): Z98.1 - ARTHRODESIS STATUS (8) Thoracic aortic aneurysm Assessment/Plan: -Chest CTA shows minimal aneurysmal dilatation of the ascending aorta measuring 4cm without evidence of dissection -vascular consult Code(s): I71.2 - THORACIC AORTIC ANEURYSM, WITHOUT RUPTURE Assessment/Plan see problem list dvt ppx
--- NOTE | 2019-12-14 11:06 | PN ---
Progress Note, Physician History of Present Illness: pulmonary alert,c/o epigastric pain,less dyspneic - Current Medication List Current Medications: Active Medications Acetaminophen (Ofirmev Injection -) 1,000 mg IVPB Q6H PRN PRN Reason: FEVER Stop: 12/14/19 18:16 Last Admin: 12/14/19 01:35 Dose: 1,000 mg Al Hydroxide/Mg Hydroxide (Mylanta Oral Suspension -) 30 ml PO Q6H PRN PRN Reason: DYSPEPSIA Atorvastatin Calcium (Lipitor -) 20 mg PO HS [facility] Last Admin: 12/13/19 21:58 Dose: 20 mg Baclofen (Lioresal -) 10 mg PO TID [facility] Last Admin: 12/14/19 05:44 Dose: 10 mg Brimonidine Tartrate (Alphagan 0.2% -) 1 drop OU BID [facility] Last Admin: 12/14/19 09:47 Dose: 1 drop Calcium Carbonate/Cholecalciferol (Os-[place] 500+D -) 2 tab PO DAILY [facility] Last Admin: 12/14/19 09:49 Dose: 2 tab Diphenhydramine HCl (Benadryl -) 25 mg PO Q6H PRN PRN Reason: FOR ITCHING Diphenhydramine HCl (Benadryl Injection -) 25 mg IVPUSH ONCE PRN PRN Reason: FOR ITCHING Last Admin: 12/12/19 23:01 Dose: 25 mg Docusate Sodium (Colace -) 100 mg PO TID [facility] Last Admin: 12/14/19 05:44 Dose: 100 mg Ferrous Sulfate (Feosol -) 325 mg PO DAILY [facility] Last Admin: 12/14/19 09:46 Dose: 325 mg Folic Acid (Folic Acid -) 1 mg PO DAILY [facility] Last Admin: 12/14/19 09:46 Dose: 1 mg Furosemide (Lasix -) 20 mg PO DAILY [facility] Last Admin: 12/14/19 10:38 Dose: 20 mg Heparin Sodium (Porcine) (Heparin -) 5,000 unit SQ Q8H [facility] Last Admin: 12/14/19 05:44 Dose: 5,000 unit Cefazolin Sodium 1 gm/ (Dextrose) 50 mls @ 100 mls/hr IVPB Q8H [facility] Last Admin: 12/14/19 04:37 Dose: 100 mls/hr Sodium Chloride (Normal Saline -) 1,000 mls @ 100 mls/hr IV ASDIR [facility] Last Admin: 12/13/19 14:52 Dose: Not Given Insulin Aspart (Novolog Vial Sliding Scale -) 1 vial SQ ACHS [facility]; Protocol Last Admin: 12/14/19 06:02 Dose: Not Given Latanoprost (Xalatan 0.005% Eye Drops -) 1 drop OD HS [facility] Last Admin: 12/13/19 21:59 Dose: 1 drop Loratadine (Claritin -) 10 mg PO DAILY [facility] Last Admin: 12/14/19 09:46 Dose: 10 mg Losartan Potassium (Cozaar -) 100 mg PO DAILY [facility] Last Admin: 12/14/19 09:46 Dose: 100 mg Metformin HCl (Glucophage -) 1,000 mg PO BIDAC [facility] Last Admin: 12/13/19 06:19 Dose: Not Given Metoprolol Succinate (Toprol Xl -) 25 mg PO DAILY [facility] Last Admin: 12/14/19 09:46 Dose: 25 mg Multivitamins/Minerals (Theragran-M) 1 each PO DAILY [facility] Last Admin: 12/14/19 09:46 Dose: 1 each Naloxone HCl (Narcan -) 0.4 mg IVPUSH ONCE PRN PRN Reason: Sedation Ondansetron HCl (Zofran Injection) 4 mg IVPUSH Q6H PRN PRN Reason: NAUSEA Last Admin: 12/14/19 01:36 Dose: 4 mg Oxycodone HCl (Oxycontin -) 10 mg PO BID [facility] Last Admin: 12/14/19 09:47 Dose: 10 mg Pantoprazole Sodium (Protonix -) 20 mg PO DAILY [facility] Last Admin: 12/14/19 09:46 Dose: 20 mg Pregabalin (Lyrica -) 150 mg PO DAILY [facility] Last Admin: 12/14/19 09:46 Dose: 150 mg Sertraline HCl (Zoloft -) 50 mg PO DAILY [facility] Last Admin: 12/14/19 09:46 Dose: 50 mg Simethicone (Mylicon -) 80 mg PO Q4H PRN PRN Reason: DYSPEPSIA Last Admin: 12/13/19 12:39 Dose: 80 mg - Objective Vital Signs: Vital Signs Temperature 98.2 F 12/14/19 08:29 Pulse Rate 115 H 12/14/19 08:29 Respiratory Rate 19 12/14/19 08:29 Blood Pressure 132/77 12/14/19 08:29 O2 Sat by Pulse Oximetry (%) 100 12/13/19 21:00 Constitutional: Yes: Well Nourished, Calm Eyes: Yes: WNL HENT: Yes: WNL Neck: Yes: WNL Cardiovascular: Yes: Regular Rate and Rhythm, S1, S2 Respiratory: Yes: Diminished Gastrointestinal: Yes: Normal Bowel Sounds, Soft, Other (+ epigastric tenderness ) Extremities: Yes: WNL Edema: No Labs: CBC, BMP 12/14/19 01:59 12/13/19 07:00 Problem List - Problems (1) S/P spinal surgery Code(s): Z98.890 - OTHER SPECIFIED POSTPROCEDURAL STATES (2) Thoracic radiculopathy due to degenerative joint disease of spine Code(s): M47.24 - OTHER SPONDYLOSIS WITH RADICULOPATHY, THORACIC REGION (3) GERD (gastroesophageal reflux disease) Code(s): K21.9 - GASTRO-ESOPHAGEAL REFLUX DISEASE WITHOUT ESOPHAGITIS Qualifiers: Esophagitis presence: without esophagitis Qualified Code(s): K21.9 - Gastro -esophageal reflux disease without esophagitis (4) HLD (hyperlipidemia) Code(s): E78.5 - HYPERLIPIDEMIA, UNSPECIFIED (5) HTN (hypertension) Code(s): I10 - ESSENTIAL (PRIMARY) HYPERTENSION Qualifiers: Hypertension type: essential hypertension Qualified Code(s): I10 - Essential (primary) hypertension (6) Thoracic aortic aneurysm Code(s): I71.2 - THORACIC AORTIC ANEURYSM, WITHOUT RUPTURE (7) Thoracic spinal stenosis Code(s): M48.04 - SPINAL STENOSIS, THORACIC REGION (8) Chest pain Code(s): R07.9 - CHEST PAIN, UNSPECIFIED (9) Dyspnea Code(s): R06.00 - DYSPNEA, UNSPECIFIED (10) Fever Code(s): R50.9 - FEVER, UNSPECIFIED (11) Anemia Code(s): D64.9 - ANEMIA, UNSPECIFIED Assessment/Plan IMP CHEST PAIN LIKELY SECONDARY TO RECENT SURGERY S/P T5-T11 DECOMPRESSION AND POSTERIOR FUSION NIDDM HTN HLD LEFT EYE GLAUCOMA H/O THORACIC AORTIC ANEURYSM FEVER ANEMIA PLAN ANALGESICS INCENTIVE SPIROMETER NASAL O2 NEEDED DVT PROPHYLAXIS ABX PER ID MONITOR LYTES,H+H NORMAL TRANSFUSION THRESHOLD GI EVALUATION DR BYNUM Problem List - Problems (1) S/P spinal surgery Code(s): Z98.890 - OTHER SPECIFIED POSTPROCEDURAL STATES (2) Thoracic radiculopathy due to degenerative joint disease of spine Code(s): M47.24 - OTHER SPONDYLOSIS WITH RADICULOPATHY, THORACIC REGION (3) GERD (gastroesophageal reflux disease) Code(s): K21.9 - GASTRO-ESOPHAGEAL REFLUX DISEASE WITHOUT ESOPHAGITIS Qualifiers: Esophagitis presence: without esophagitis Qualified Code(s): K21.9 - Gastro -esophageal reflux disease without esophagitis (4) HLD (hyperlipidemia) Code(s): E78.5 - HYPERLIPIDEMIA, UNSPECIFIED (5) HTN (hypertension) Code(s): I10 - ESSENTIAL (PRIMARY) HYPERTENSION Qualifiers: Hypertension type: essential hypertension Qualified Code(s): I10 - Essential (primary) hypertension (6) Thoracic aortic aneurysm Code(s): I71.2 - THORACIC AORTIC ANEURYSM, WITHOUT RUPTURE (7) Thoracic spinal stenosis Code(s): M48.04 - SPINAL STENOSIS, THORACIC REGION (8) Chest pain Code(s): R07.9 - CHEST PAIN, UNSPECIFIED (9) Dyspnea Code(s): R06.00 - DYSPNEA, UNSPECIFIED (10) Fever Code(s): R50.9 - FEVER, UNSPECIFIED (11) Anemia Code(s): D64.9 - ANEMIA, UNSPECIFIED
[2019-12-14] MEDS ORDERED: FAMOTIDINE 20 MG/50 ML IVPB 20 MG/50 ML MG IVPB ONE (11:37)
[2019-12-14] MEDS: SODIUM CHLORIDE 1,000 ML IV SCH ×3 (11:57→21:08)
--- NOTE | 2019-12-14 13:23 | PN ---
Progress Note (short form) - Note Progress Note: still with chest and abdominal discomfort fevers resolving Vital Signs Period Temp Pulse Resp BP Sys/Sales Pulse Ox Last 24 Hr 98.2 F-101 F 100-125 18-21 109-155/60-79 100 cor-rrr lungs clear abd slightly distended, diffuse discomfort to palpation ext no edema back dressing intact, +marita drain with blood tinged serous fluid CBC, BMP 12/14/19 01:59 12/13/19 07:00 Microbiology 12/12/19 21:45 Urine - Urine Sethi Urine Culture - Final NO GROWTH OBTAINED 12/12/19 21:05 Blood - Peripheral Venous Blood Culture - Preliminary NO GROWTH OBTAINED AFTER 24 HOURS, INCUBATION TO CONTINUE FOR 4 DAYS. 12/12/19 21:05 Blood - Peripheral Venous Blood Culture - Preliminary NO GROWTH OBTAINED AFTER 24 HOURS, INCUBATION TO CONTINUE FOR 4 DAYS. a/p postop fever pod #2 fevers trending down chest cta- no signes of pneumonia or PE continue periop cefazolin per surgical team encourage incentive spirometry sethi out when able wbc normal postop anemia- s/p transfusion abdominal distention- for ct scan abd/pelvis
--- NOTE | 2019-12-14 15:18 | PN ---
Progress Note, Physician History of Present Illness: Pt seen and examined at bedside. he is awake and alert. He denies shortness of breath. - Current Medication List Current Medications: Active Medications Acetaminophen (Ofirmev Injection -) 1,000 mg IVPB Q6H PRN PRN Reason: FEVER Stop: 12/14/19 18:16 Last Admin: 12/14/19 11:08 Dose: 1,000 mg Al Hydroxide/Mg Hydroxide (Mylanta Oral Suspension -) 30 ml PO Q6H PRN PRN Reason: DYSPEPSIA Atorvastatin Calcium (Lipitor -) 20 mg PO HS [facility] Last Admin: 12/13/19 21:58 Dose: 20 mg Baclofen (Lioresal -) 10 mg PO TID [facility] Last Admin: 12/14/19 14:08 Dose: 10 mg Brimonidine Tartrate (Alphagan 0.2% -) 1 drop OU BID [facility] Last Admin: 12/14/19 09:47 Dose: 1 drop Calcium Carbonate/Cholecalciferol (Os-Wilbur 500+D -) 2 tab PO DAILY [facility] Last Admin: 12/14/19 09:49 Dose: 2 tab Diphenhydramine HCl (Benadryl -) 25 mg PO Q6H PRN PRN Reason: FOR ITCHING Diphenhydramine HCl (Benadryl Injection -) 25 mg IVPUSH ONCE PRN PRN Reason: FOR ITCHING Last Admin: 12/12/19 23:01 Dose: 25 mg Docusate Sodium (Colace -) 100 mg PO TID [facility] Last Admin: 12/14/19 14:01 Dose: Not Given Ferrous Sulfate (Feosol -) 325 mg PO DAILY [facility] Last Admin: 12/14/19 09:46 Dose: 325 mg Folic Acid (Folic Acid -) 1 mg PO DAILY [facility] Last Admin: 12/14/19 09:46 Dose: 1 mg Furosemide (Lasix -) 20 mg PO DAILY [facility] Last Admin: 12/14/19 10:38 Dose: 20 mg Heparin Sodium (Porcine) (Heparin -) 5,000 unit SQ Q8H [facility] Last Admin: 12/14/19 14:09 Dose: 5,000 unit Cefazolin Sodium 1 gm/ (Dextrose) 50 mls @ 100 mls/hr IVPB Q8H [facility] Last Admin: 12/14/19 11:56 Dose: 100 mls/hr Sodium Chloride (Normal Saline -) 1,000 mls @ 100 mls/hr IV ASDIR [facility] Last Admin: 12/14/19 14:13 Dose: Not Given Insulin Aspart (Novolog Vial Sliding Scale -) 1 vial SQ ACHS [facility]; Protocol Last Admin: 12/14/19 11:56 Dose: 2 unit Latanoprost (Xalatan 0.005% Eye Drops -) 1 drop OD HS [facility] Last Admin: 12/13/19 21:59 Dose: 1 drop Loratadine (Claritin -) 10 mg PO DAILY [facility] Last Admin: 12/14/19 09:46 Dose: 10 mg Losartan Potassium (Cozaar -) 100 mg PO DAILY [facility] Last Admin: 12/14/19 09:46 Dose: 100 mg Metformin HCl (Glucophage -) 1,000 mg PO BIDAC [facility] Last Admin: 12/13/19 06:19 Dose: Not Given Metoprolol Succinate (Toprol Xl -) 25 mg PO DAILY [facility] Last Admin: 12/14/19 09:46 Dose: 25 mg Multivitamins/Minerals (Theragran-M) 1 each PO DAILY [facility] Last Admin: 12/14/19 09:46 Dose: 1 each Naloxone HCl (Narcan -) 0.4 mg IVPUSH ONCE PRN PRN Reason: Sedation Ondansetron HCl (Zofran Injection) 4 mg IVPUSH Q6H PRN PRN Reason: NAUSEA Last Admin: 12/14/19 01:36 Dose: 4 mg Oxycodone HCl (Oxycontin -) 10 mg PO BID [facility] Last Admin: 12/14/19 09:47 Dose: 10 mg Oxycodone HCl (Roxicodone -) 5 mg PO Q6H PRN PRN Reason: PAIN LEVEL 1-5 Pantoprazole Sodium (Protonix -) 20 mg PO DAILY [facility] Last Admin: 12/14/19 09:46 Dose: 20 mg Pregabalin (Lyrica -) 150 mg PO DAILY [facility] Last Admin: 12/14/19 09:46 Dose: 150 mg Sertraline HCl (Zoloft -) 50 mg PO DAILY [facility] Last Admin: 12/14/19 09:46 Dose: 50 mg Simethicone (Mylicon -) 80 mg PO Q4H PRN PRN Reason: DYSPEPSIA Last Admin: 12/13/19 12:39 Dose: 80 mg - Objective Vital Signs: Vital Signs Temperature 99.3 F 12/14/19 13:59 Pulse Rate 114 H 12/14/19 13:59 Respiratory Rate 18 12/14/19 13:59 Blood Pressure 153/90 12/14/19 13:59 O2 Sat by Pulse Oximetry (%) 98 12/14/19 09:00 Constitutional: Yes: Calm Eyes: Yes: Conjunctiva Clear HENT: Yes: Atraumatic Cardiovascular: Yes: S1, S2 Respiratory: Yes: CTA Bilaterally, On Nasal O2 Gastrointestinal: Yes: Soft Genitourinary: Yes: WNL Musculoskeletal: Yes: Back Pain Edema: No Neurological: Yes: Oriented Psychiatric: Yes: Oriented Labs: CBC, BMP 12/14/19 01:59 12/13/19 07:00 Problem List - Problems (1) Diabetes Code(s): E11.9 - TYPE 2 DIABETES MELLITUS WITHOUT COMPLICATIONS Qualifiers: Diabetes mellitus type: type 2 Diabetes mellitus long lines operator insulin use: with 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 Diabetes mellitus complication status: with unspecified complications (2) GERD (gastroesophageal reflux disease) Code(s): K21.9 - GASTRO-ESOPHAGEAL REFLUX DISEASE WITHOUT ESOPHAGITIS Qualifiers: Esophagitis presence: without esophagitis Qualified Code(s): K21.9 - Gastro -esophageal reflux disease without esophagitis (3) HLD (hyperlipidemia) Code(s): E78.5 - HYPERLIPIDEMIA, UNSPECIFIED (4) HTN (hypertension) Code(s): I10 - ESSENTIAL (PRIMARY) HYPERTENSION Qualifiers: Hypertension type: essential hypertension Qualified Code(s): I10 - Essential (primary) hypertension Assessment/Plan Current Medications Generic Name Dose Route Start Last Admin Trade Name Freq PRN Reason Stop Dose Admin Acetaminophen 1,000 mg 12/13/19 18:16 12/14/19 11:08 Ofirmev Injection - IVPB 12/14/19 18:16 1,000 mg Q6H PRN Administration FEVER Al Hydroxide/Mg Hydroxide 30 ml 12/13/19 09:39 Mylanta Oral Suspension - PO Q6H PRN DYSPEPSIA Atorvastatin Calcium 20 mg 12/12/19 22:00 12/13/19 21:58 Lipitor - PO 20 mg HS [facility] Administration Baclofen 10 mg 12/13/19 14:00 12/14/19 14:08 Lioresal - PO 10 mg TID [facility] Administration Brimonidine Tartrate 1 drop 12/12/19 22:00 12/14/19 09:47 Alphagan 0.2% - OU 1 drop BID [facility] Administration Calcium Carbonate/Cholecalciferol 2 tab 12/13/19 13:45 12/14/19 09:49 Os-Wilbur 500+D - PO 2 tab DAILY [facility] Administration Diphenhydramine HCl 25 mg 12/12/19 14:16 Benadryl - PO Q6H PRN FOR ITCHING Diphenhydramine HCl 25 mg 12/12/19 14:26 12/12/19 23:01 Benadryl Injection - IVPUSH 25 mg ONCE PRN Administration FOR ITCHING Docusate Sodium 100 mg 12/12/19 22:00 12/14/19 14:01 Colace - PO Not Given TID [facility] Ferrous Sulfate 325 mg 12/13/19 10:00 12/14/19 09:46 Feosol - PO 325 mg DAILY [facility] Administration Folic Acid 1 mg 12/13/19 10:00 12/14/19 09:46 Folic Acid - PO 1 mg DAILY [facility] Administration Furosemide 20 mg 12/14/19 10:00 12/14/19 10:38 Lasix - PO 20 mg DAILY [facility] Administration Heparin Sodium (Porcine) 5,000 unit 12/12/19 22:00 12/14/19 14:09 Heparin - SQ 5,000 unit Q8H [facility] Administration Cefazolin Sodium 1 gm/ 50 mls @ 100 mls/hr 12/12/19 20:30 12/14/19 11:56 Dextrose IVPB 100 mls/hr Q8H [facility] Administration Sodium Chloride 1,000 mls @ 100 mls/hr 12/13/19 13:32 12/14/19 14:13 Normal Saline - IV Not Given ASDIR [facility] Insulin Aspart 1 vial 12/12/19 16:30 12/14/19 11:56 Novolog Vial Sliding Scale - SQ 2 unit ACHS [facility] Administration Protocol Latanoprost 1 drop 12/12/19 22:00 12/13/19 21:59 Xalatan 0.005% Eye Drops - OD 1 drop HS [facility] Administration Loratadine 10 mg 12/13/19 10:00 12/14/19 09:46 Claritin - PO 10 mg DAILY [facility] Administration Losartan Potassium 100 mg 12/13/19 10:00 12/14/19 09:46 Cozaar - PO 100 mg DAILY [facility] Administration Metformin HCl 1,000 mg 12/13/19 07:00 12/13/19 06:19 Glucophage - PO Not Given BIDAC [facility] Metoprolol Succinate 25 mg 12/13/19 10:00 12/14/19 09:46 Toprol Xl - PO 25 mg DAILY [facility] Administration Multivitamins/Minerals 1 each 12/13/19 10:00 12/14/19 09:46 Theragran-M PO 1 each DAILY [facility] Administration Naloxone HCl 0.4 mg 12/12/19 14:26 Narcan - IVPUSH ONCE PRN Sedation Ondansetron HCl 4 mg 12/13/19 12:38 12/14/19 01:36 Zofran Injection IVPUSH 4 mg Q6H PRN Administration NAUSEA Oxycodone HCl 10 mg 12/13/19 14:26 12/14/19 09:47 Oxycontin - PO 10 mg BID [facility] Administration Oxycodone HCl 5 mg 12/14/19 11:37 Roxicodone - PO Q6H PRN PAIN LEVEL 1-5 Pantoprazole Sodium 20 mg 12/13/19 10:00 12/14/19 09:46 Protonix - PO 20 mg DAILY [facility] Administration Pregabalin 150 mg 12/13/19 10:00 12/14/19 09:46 Lyrica - PO 150 mg DAILY [facility] Administration Sertraline HCl 50 mg 12/13/19 10:00 12/14/19 09:46 Zoloft - PO 50 mg DAILY [facility] Administration Simethicone 80 mg 12/13/19 09:39 12/13/19 12:39 Mylicon - PO 80 mg Q4H PRN Administration DYSPEPSIA Impression 1. hypocalcemia with corrected low normal 2. dm 3. htn 4. s/p back surgery 5. gerd 6. mild rhabdo Plan - check cmp - can d/c fluids of he is tolerating diet - lasix on hold, pt says he does not always take it. evaluate daily, he did get the dose today - cont calcium with vd dupplements for now - avoid nsaids for now - mild rhabdo post op - repeat cpk in am
--- NOTE | 2019-12-14 16:26 | CON.CARD ---
Consult Consult Specialty:: Cardiology Reason for Consultation:: Chest pain - History of Present Illness Chief Complaint: Presently comfortable. Earlier with chest pain and epigastric tenderness History of Present Illness: This is a 69 year old male with a PMH of HTN, HLD, DM, GERD, and multiple spinal surgery most recently neck surgery. He is now s/p T5 to T11 spinal fusion surgery 12/12/2019. Presently he is resting comfortably, earlier he complained of chest burning and was noted to have epigastric tenderness. Troponins negative - Past Medical History Cardio/Vascular: Yes: Aneurysm, HTN, Hyperlipdemia Gastrointestinal: Yes: GERD Psych: Yes: Depression Musculoskeletal: Yes: Other (right foot drop) Endocrine: Yes: Diabetes Mellitus - Past Surgical History Past Surgical History: Yes: Laminectomy - Alcohol/Substance Use Hx Alcohol Use: Yes (RARE) - Smoking History Smoking history: Former smoker Have you smoked in the past 12 months: No If you are a former smoker, when did you quit?: 30 YEARS AGO - Social History Usual Living Arrangement: With Spouse ADL: Independent History of Recent Travel: No Home Medications - Allergies Allergies/Adverse Reactions: Allergies Allergy/AdvReac Type Severity Reaction Status Date / Time codeine Allergy Intermediate "stomach Verified 12/12/19 06:47 hurts and itchy" morphine Allergy Unknown "itchy" Verified 12/12/19 06:47 - Home Medications Home Medications: Ambulatory Orders Bimatoprost [Lumigan] 1 drop OD HS 12/13/15 Metoprolol Succinate [Toprol XL -] 1 tab PO DAILY 12/13/15 Atorvastatin Ca [Lipitor] 20 mg PO HS tablet 12/26/15 Aspirin [ASA -] 81 mg PO DAILY 05/06/17 Insulin (Novolog 70/30) [Novolog Mix 70/30 Flexpen -] 60 units SQ BID 05/06/17 Sertraline HCl 50 mg PO DAILY 05/06/17 Cetirizine HCl [Zyrtec -] 10 mg PO DAILY 01/23/19 Furosemide 20 mg PO DAILY 01/23/19 Losartan Potassium 100 mg PO DAILY 01/23/19 metFORMIN HCL [Glucophage -] 1,000 mg PO BID 01/23/19 Brimonidine Tartrate [Alphagan 0.2% -] 1 drop OU BID drops 01/29/19 Pregabalin [Lyrica -] 150 mg PO DAILY 03/20/19 Baclofen 10 mg PO TID 04/10/19 Multivit-Min/FA/Lycopen/Lutein [Centrum Silver Men Tablet] 1 each PO DAILY 04/10 Omeprazole 20 mg PO DAILY 04/10/19 Dulaglutide [Trulicity] 1.5 mg SQ WEEKLY 12/11/19 Vital Signs: Vital Signs Temperature 99.3 F 12/14/19 13:59 Pulse Rate 114 H 12/14/19 13:59 Respiratory Rate 18 12/14/19 13:59 Blood Pressure 153/90 12/14/19 13:59 O2 Sat by Pulse Oximetry (%) 98 12/14/19 09:00 Constitutional: Yes: No Distress Eyes: Yes: WNL HENT: Yes: WNL Neck: Yes: WNL Respiratory: Yes: CTA Bilaterally Gastrointestinal: Yes: Soft Cardiovascular: Yes: Regular Rate and Rhythm Heart Sounds: Yes: S1, S2 Edema: No Neurological: Yes: Alert, Oriented - Other Data Labs, Other Data: CBC, BMP 12/14/19 01:59 12/13/19 07:00 Assessment/Plan 69 year old male with a PMH of HTN, HLD, DM, GERD, and multiple spinal surgery most recently neck surgery. He is now s/p T5 to T11 spinal fusion surgery 2019. Presently he is resting comfortably, earlier he complained of chest burning and was noted to have epigastric tenderness. Troponins negative Chest Pain "Burning" associated with epigastic tenderness Most likely GERD related Continue cardiac meds including beta blockers and statin Continue Protonix for GERD No evidence for an acute coronary syndrome Repeat EKG Active Medications Acetaminophen (Ofirmev Injection -) 1,000 mg IVPB Q6H PRN PRN Reason: FEVER Stop: 12/14/19 18:16 Last Admin: 12/14/19 11:08 Dose: 1,000 mg Al Hydroxide/Mg Hydroxide (Mylanta Oral Suspension -) 30 ml PO Q6H PRN PRN Reason: DYSPEPSIA Atorvastatin Calcium (Lipitor -) 20 mg PO HS [facility] Last Admin: 12/13/19 21:58 Dose: 20 mg Baclofen (Lioresal -) 10 mg PO TID [facility] Last Admin: 12/14/19 14:08 Dose: 10 mg Brimonidine Tartrate (Alphagan 0.2% -) 1 drop OU BID [facility] Last Admin: 12/14/19 09:47 Dose: 1 drop Calcium Carbonate/Cholecalciferol (Os-Wilbur 500+D -) 2 tab PO DAILY [facility] Last Admin: 12/14/19 09:49 Dose: 2 tab Diphenhydramine HCl (Benadryl -) 25 mg PO Q6H PRN PRN Reason: FOR ITCHING Diphenhydramine HCl (Benadryl Injection -) 25 mg IVPUSH ONCE PRN PRN Reason: FOR ITCHING Last Admin: 12/12/19 23:01 Dose: 25 mg Docusate Sodium (Colace -) 100 mg PO TID [facility] Last Admin: 12/14/19 14:01 Dose: Not Given Ferrous Sulfate (Feosol -) 325 mg PO DAILY [facility] Last Admin: 12/14/19 09:46 Dose: 325 mg Folic Acid (Folic Acid -) 1 mg PO DAILY [facility] Last Admin: 12/14/19 09:46 Dose: 1 mg Furosemide (Lasix -) 20 mg PO DAILY [facility] Last Admin: 12/14/19 10:38 Dose: 20 mg Heparin Sodium (Porcine) (Heparin -) 5,000 unit SQ Q8H [facility] Last Admin: 12/14/19 14:09 Dose: 5,000 unit Cefazolin Sodium 1 gm/ (Dextrose) 50 mls @ 100 mls/hr IVPB Q8H [facility] Last Admin: 12/14/19 11:56 Dose: 100 mls/hr Sodium Chloride (Normal Saline -) 1,000 mls @ 100 mls/hr IV ASDIR [facility] Last Admin: 12/14/19 14:13 Dose: Not Given Insulin Aspart (Novolog Vial Sliding Scale -) 1 vial SQ ACHS [facility]; Protocol Last Admin: 12/14/19 11:56 Dose: 2 unit Latanoprost (Xalatan 0.005% Eye Drops -) 1 drop OD HS [facility] Last Admin: 12/13/19 21:59 Dose: 1 drop Loratadine (Claritin -) 10 mg PO DAILY [facility] Last Admin: 12/14/19 09:46 Dose: 10 mg Losartan Potassium (Cozaar -) 100 mg PO DAILY [facility] Last Admin: 12/14/19 09:46 Dose: 100 mg Metformin HCl (Glucophage -) 1,000 mg PO BIDAC [facility] Last Admin: 12/13/19 06:19 Dose: Not Given Metoprolol Succinate (Toprol Xl -) 25 mg PO DAILY [facility] Last Admin: 12/14/19 09:46 Dose: 25 mg Multivitamins/Minerals (Theragran-M) 1 each PO DAILY [facility] Last Admin: 12/14/19 09:46 Dose: 1 each Naloxone HCl (Narcan -) 0.4 mg IVPUSH ONCE PRN PRN Reason: Sedation Ondansetron HCl (Zofran Injection) 4 mg IVPUSH Q6H PRN PRN Reason: NAUSEA Last Admin: 12/14/19 01:36 Dose: 4 mg Oxycodone HCl (Oxycontin -) 10 mg PO BID [facility] Last Admin: 12/14/19 09:47 Dose: 10 mg Oxycodone HCl (Roxicodone -) 5 mg PO Q6H PRN PRN Reason: PAIN LEVEL 1-5 Pantoprazole Sodium (Protonix -) 20 mg PO DAILY [facility] Last Admin: 12/14/19 09:46 Dose: 20 mg Pregabalin (Lyrica -) 150 mg PO DAILY [facility] Last Admin: 12/14/19 09:46 Dose: 150 mg Sertraline HCl (Zoloft -) 50 mg PO DAILY [facility] Last Admin: 12/14/19 09:46 Dose: 50 mg Simethicone (Mylicon -) 80 mg PO Q4H PRN PRN Reason: DYSPEPSIA Last Admin: 12/13/19 12:39 Dose: 80 mg
--- NOTE | 2019-12-14 17:55 | CON.GI ---
Consult - History of Present Illness History of Present Illness: 59M s/p T5-T11 costovertebral/tranpedicular decompression with osteotomies and arthrodesis. T5-T11 posterior fusion with pedicle screws 12/12/19. Post op developed vague upper abdominal, lower rib pain. The description is vague in nature. It appears to occur on and off randomly, may worsen with deep inspiration and movement. There is no associated nausea, vomiting. He has not had a BM since surgery and pased flatus for the first time this evening. CTA of the chest negative for PE. AXR revealed some dilated small bowel loops and slightly dilated sigmoid. Contrast CT scan of the abdomen and pelvis this evening revealed thickening of the left lateral conal fascia and mildly dilated colon. There was no evidence of volvulus not appear significantly distended. he denies rectal bleeding and there has been no melena. He has been transfused but is having active bloody drainage from the back BILL drain. He believes that he had a colonoscopy within the last couple of years. - History Source History Provided By: Patient, Medical Record Limitations to Obtaining History: No Limitations - Past Medical History Cardio/Vascular: Yes: Aneurysm, HTN, Hyperlipdemia Gastrointestinal: Yes: GERD Psych: Yes: Depression Musculoskeletal: Yes: Other (right foot drop) Endocrine: Yes: Diabetes Mellitus (DM II) - Past Surgical History Past Surgical History: Yes: Cataract Removal (bilaterally), Laminectomy Additional Surgical History: C-Spine, previous T-Spine, L-spine surgeries - Alcohol/Substance Use Hx Alcohol Use: Yes (RARE) - Smoking History Smoking history: Former smoker Have you smoked in the past 12 months: No If you are a former smoker, when did you quit?: 30 YEARS AGO - Social History Usual Living Arrangement: With Spouse ADL: Independent History of Recent Travel: No Home Medications - Allergies Allergies/Adverse Reactions: Allergies Allergy/AdvReac Type Severity Reaction Status Date / Time codeine Allergy Intermediate "stomach Verified 12/12/19 06:47 hurts and itchy" morphine Allergy Unknown "itchy" Verified 12/12/19 06:47 - Home Medications Home Medications: Ambulatory Orders Bimatoprost [Lumigan] 1 drop OD HS 12/13/15 Metoprolol Succinate [Toprol XL -] 1 tab PO DAILY 12/13/15 Atorvastatin Ca [Lipitor] 20 mg PO HS tablet 12/26/15 Aspirin [ASA -] 81 mg PO DAILY 05/06/17 Insulin (Novolog 70/30) [Novolog Mix 70/30 Flexpen -] 60 units SQ BID 05/06/17 Sertraline HCl 50 mg PO DAILY 05/06/17 Cetirizine HCl [Zyrtec -] 10 mg PO DAILY 01/23/19 Furosemide 20 mg PO DAILY 01/23/19 Losartan Potassium 100 mg PO DAILY 01/23/19 metFORMIN HCL [Glucophage -] 1,000 mg PO BID 01/23/19 Brimonidine Tartrate [Alphagan 0.2% -] 1 drop OU BID drops 01/29/19 Pregabalin [Lyrica -] 150 mg PO DAILY 03/20/19 Baclofen 10 mg PO TID 04/10/19 Multivit-Min/FA/Lycopen/Lutein [Centrum Silver Men Tablet] 1 each PO DAILY 04/10 Omeprazole 20 mg PO DAILY 04/10/19 Dulaglutide [Trulicity] 1.5 mg SQ WEEKLY 12/11/19 Family Medical History Family Hx Cancer: Mother (: 69: Unclear what kind, not colon), Father ( 70: Unclear what kind, not colon) Other Family History: 3 sisters, 1 brother: healthy. 1 son, 1 daughter: healthy Review of Systems - Review of Systems Constitutional: denies: Chills, Fever Cardiovascular: denies: Chest Pain Respiratory: denies: Cough Gastrointestinal: reports: Abdominal Pain. denies: Nausea, Vomiting Physical Exam-GI Vital Signs: Vital Signs Temperature 99.3 F 12/14/19 13:59 Pulse Rate 114 H 12/14/19 13:59 Respiratory Rate 18 12/14/19 13:59 Blood Pressure 153/90 12/14/19 13:59 O2 Sat by Pulse Oximetry (%) 98 12/14/19 09:00 Constitutional: Yes: Calm Eyes: No: Sclera Icterus Cardiovascular: Yes: Tachycardia Respiratory: Yes: Diminished (at bases bilaterally with poor insp effort) ...Rectal Exam: Yes: Other (No external lesions, no masses, scant light glez stool in the rectal vault.) Edema: No (No LE edema) Labs: CBC, BMP 12/14/19 01:59 12/13/19 07:00 Imaging - Results Cat Scan: Report Reviewed, Image Reviewed Problem List - Problems (1) Abdominal pain Assessment/Plan: Vague nature of the pain. It seems to be involving the lower ribs as well as inconsistent areas of the upper and mid abdomen intermittently. I question if this is referred pain from the T-Spine surgery that he has undergone, the position that he was laying during the surgery or combination. He also has a component of post operative ileus. Advise: Supportive measures [id number] daily Protonix 20mg daily Continue muscle relaxant trial Post op care per surgery Code(s): R10.9 - UNSPECIFIED ABDOMINAL PAIN
[2019-12-14] MEDS: SIMETHICONE 80 MG TAB.CHEW (FP) PO PRN (18:15)
--- NOTE | 2019-12-14 19:43 | CONSULT ---
Consult Consult Specialty:: Vascular Surgery - History of Present Illness History of Present Illness: 69 year old s/p spine surgery was noted on CTA of chest to have dilated ascending aorta to 4 cm. No other aneurysmal disease seen in chest or abdomen. No evidence for dissection. No family history of aneurysm disease. - History Source History Provided By: Medical Record - Past Medical History Cardio/Vascular: Yes: Aneurysm, HTN, Hyperlipdemia Gastrointestinal: Yes: GERD Psych: Yes: Depression Musculoskeletal: Yes: Other (right foot drop) Endocrine: Yes: Diabetes Mellitus (DM II) - Past Surgical History Past Surgical History: Yes: Cataract Removal (bilaterally), Laminectomy Additional Surgical History: C-Spine, previous T-Spine, L-spine surgeries - Alcohol/Substance Use Hx Alcohol Use: Yes (RARE) - Smoking History Smoking history: Former smoker Have you smoked in the past 12 months: No If you are a former smoker, when did you quit?: 30 YEARS AGO - Social History Usual Living Arrangement: With Spouse ADL: Independent History of Recent Travel: No Home Medications - Allergies Allergies/Adverse Reactions: Allergies Allergy/AdvReac Type Severity Reaction Status Date / Time codeine Allergy Intermediate "stomach Verified 12/12/19 06:47 hurts and itchy" morphine Allergy Unknown "itchy" Verified 12/12/19 06:47 - Home Medications Home Medications: Ambulatory Orders Bimatoprost [Lumigan] 1 drop OD HS 12/13/15 Metoprolol Succinate [Toprol XL -] 1 tab PO DAILY 12/13/15 Atorvastatin Ca [Lipitor] 20 mg PO HS tablet 12/26/15 Aspirin [ASA -] 81 mg PO DAILY 05/06/17 Insulin (Novolog 70/30) [Novolog Mix 70/30 Flexpen -] 60 units SQ BID 05/06/17 Sertraline HCl 50 mg PO DAILY 05/06/17 Cetirizine HCl [Zyrtec -] 10 mg PO DAILY 01/23/19 Furosemide 20 mg PO DAILY 01/23/19 Losartan Potassium 100 mg PO DAILY 01/23/19 metFORMIN HCL [Glucophage -] 1,000 mg PO BID 01/23/19 Brimonidine Tartrate [Alphagan 0.2% -] 1 drop OU BID drops 01/29/19 Pregabalin [Lyrica -] 150 mg PO DAILY 03/20/19 Baclofen 10 mg PO TID 04/10/19 Multivit-Min/FA/Lycopen/Lutein [Centrum Silver Men Tablet] 1 each PO DAILY 04/10 Omeprazole 20 mg PO DAILY 04/10/19 Dulaglutide [Trulicity] 1.5 mg SQ WEEKLY 12/11/19 Physical Exam Vital Signs: Vital Signs Temperature 99.3 F 12/14/19 13:59 Pulse Rate 114 H 12/14/19 13:59 Respiratory Rate 18 12/14/19 13:59 Blood Pressure 153/90 12/14/19 13:59 O2 Sat by Pulse Oximetry (%) 98 12/14/19 09:00 Constitutional: Yes: No Distress Eyes: Yes: Conjunctiva Clear, EOM Intact HENT: Yes: WNL Neck: Yes: Decreased ROM Cardiovascular: Yes: Regular Rate and Rhythm Respiratory: Yes: Regular Gastrointestinal: Yes: Soft Edema: No Labs: CBC, BMP 12/14/19 01:59 12/13/19 07:00 Imaging - Results Cat Scan: Image Reviewed Problem List - Problems (1) Ascending aorta dilatation Assessment/Plan: Slight dilatation of ascending aorta does not require any additional imaging or intervention at this time. In general, ascending aortic aneurysm would not be repaired until > 6 cm or if there was a rapid rate of growth. Evaluation of the aortic valve for incompetence is also needed on a regular basis. Repeat chest CT (can be non-contrast) in 1-2 years recommended. Problems reviewed: Yes Code(s): I77.810 - THORACIC AORTIC ECTASIA
[2019-12-14] MEDS: ATORVASTATIN CA 20 MG TABLET (FP) PO SCH (21:02)
[2019-12-14] MEDS: LATANOPROST 0.005% OPHTH SOLN 2.5ML BOTTLE OD SCH (21:10)
[2019-12-15] MEDS ORDERED: DEXTROSE 5%-WATER - 50 ML IVPB ONE ×3 (02:51→21:06)
[2019-12-15] MEDS ORDERED: ceFAZolin SODIUM 1 GM VIAL ONE ×3 (02:51→21:06)
[2019-12-15] MEDS: oxyCODONE HCL 5 MG TABLET PO PRN ×2 (02:53→15:24)
[2019-12-15] MEDS: CEFAZOLIN 1 GM in DEXTROSE 5%-WATER - 50 ML IVPB SCH ×3 (03:33→21:33)
[2019-12-15] MEDS: DOCUSATE SODIUM 100 MG CAPSULE (FP) PO SCH ×3 (05:17→21:42)
[2019-12-15] MEDS: HEPARIN NA (PORCINE) 5,000 UNITS/ML 1ML VIAL SQ SCH ×3 (05:17→21:41)
[2019-12-15] MEDS: BACLOFEN 10 MG TABLET (FP) PO SCH ×3 (05:17→21:41)
[2019-12-15] MEDS: INSULIN SLIDING SCALE (NOVOLOG) 1 VIAL SQ SCH ×4 (06:07→21:54)
[2019-12-15] MEDS: SODIUM CHLORIDE 1,000 ML IV SCH ×3 (07:06→17:36)
--- NOTE | 2019-12-15 07:53 | PN ---
Progress Note (short form) - Note Progress Note: POD#3 PT with complaints of abd pain improved. He passed a small amount flatus last pm , slight nausea. Had a few ice chips and sips of clears. Vital Signs Period Temp Pulse Resp BP Sys/Sales Pulse Ox Last 24 Hr 98.2 F-99.3 F 99-115 16-19 132-153/75-90 98-98 BILL: 335 sangrenous until midnight FC:2200 dark yellow urine GEN: A&0x3, NAD CV: RR. Lungs: CTA b/l anteriorly Back: Dressing cnahged. Inc c/d/i with dermabond. 4x4 gauze/paper tape and tegaderm applied. ABD: soft, non-distended, non-tender Neuro: sample mounter strength equal b/l. 5/5 dorsi/plantar b/l LE: no calf tenderness or swelling noted b/l Microbiology 12/12/19 21:45 Urine - Urine Kumar Urine Culture - Final NO GROWTH OBTAINED 12/12/19 21:05 Blood - Peripheral Venous Blood Culture - Preliminary NO GROWTH OBTAINED AFTER 48 HOURS, INCUBATION TO CONTINUE FOR 3 DAYS. 12/12/19 21:05 Blood - Peripheral Venous Blood Culture - Preliminary NO GROWTH OBTAINED AFTER 48 HOURS, INCUBATION TO CONTINUE FOR 3 DAYS. A/p; 69 yo male s/p T5-T11 costovertebral/tranpedicular decompression with osteotomies and arthrodesis. T5-T11 posterior fusion with pedicle screws Agressive OOB to chair/PT/incentive spirometer. DVT PPX with Heparin SQ/SCDs Will f/u labs cbc/chem Continue sip of clears and advance as tolerated today, may take meds with sip of water Pain managment with oral pain meds, continue stool softners to avoid constipation D/w Dr. Ravi
[2019-12-15 07:56] LABS: BASO % 0.2 % (0-2.0); EOS % 1.1 % (0-4.5); HEMATOCRIT 23.3 % (35.4-49); HEMOGLOBIN 8.4 GM/dL (11.7-16.9); LYMPH % 21.5 % (8-40); MCH 34.2 pg (25.7-33.7); MCHC 35.8 g/dl (32.0-35.9); MEAN CELL VOLUME 95.4 fl (80-96); MEAN PLT VOLUME 7.8 fl (7.5-11.1); MONO % 9.2 % (3.8-10.2); PLATELET COUNT 124 K/MM3 (134-434); RBC 2.44 M/mm3 (4.00-5.60); RDW 15.3 % (11.9-15.9); WHITE BLOOD COUNT 6.4 K/mm3 (4.0-10.0)
[2019-12-15] MEDS ORDERED: INSULIN SLIDING SCALE (NOVOLOG) 1 VIAL SQ ONE (08:03)
--- NOTE | 2019-12-15 08:05 | PN ---
Progress Note (short form) - Note Progress Note: NEUROSURGERY POD #4 No acute events per RN notes. States he is feeling much better today compared to yesterday. Remains on NPO w/ sips and tolerating. States he is passing flatus. Denies BM Denies n/v/f/c, CP, palpitations, SOB or NEVILLE. Denies LE numbness/tingling Last Vital Signs Temp Pulse Resp BP Pulse Ox 98.8 F 103 H 18 147/79 98 12/15/19 05:41 12/15/19 05:41 12/15/19 05:41 12/15/19 05:41 12/14/19 21:00 CBC 12/15/19 07:10 OUTPUT TRENDS 12/14/19 12/14/19 12/14/19 12/15/19 12/15/19 05:53 15:00 23:00 06:12 06:45 Lumbar BILL 80 75 Kumar 900 1,000 900 300 GEN: A&0x3, NAD CV: RRR Lungs: CTA b/l Back: dressing c/d/i. No erythema. No bogginess or induration. No drainage. Bill on bulb suction ABD: Soft, NT. ND. Neuro: chief safety officer strength equal b/l. 5/5 dorsi/plantar b/l LE: no calf tenderness or swelling noted b/l Problem List - Problems (1) S/P lumbar fusion Code(s): Z98.1 - ARTHRODESIS STATUS (2) Abdominal pain Code(s): R10.9 - UNSPECIFIED ABDOMINAL PAIN (3) Diabetes Code(s): E11.9 - TYPE 2 DIABETES MELLITUS WITHOUT COMPLICATIONS Qualifiers: Diabetes mellitus type: type 2 Diabetes mellitus senior living insulin use: with tank terminal gauger use Diabetes mellitus complication status: with unspecified complications (4) HTN (hypertension) Code(s): I10 - ESSENTIAL (PRIMARY) HYPERTENSION Qualifiers: Hypertension type: essential hypertension Qualified Code(s): I10 - Essential (primary) hypertension (5) Thoracic aortic aneurysm Assessment/Plan: Vascular Surgery consult recommendations appreciated. Code(s): I71.2 - THORACIC AORTIC ANEURYSM, WITHOUT RUPTURE
[2019-12-15 08:46] LABS: BLOOD UREA NITROGEN 10.5 mg/dL (7-18); CALCIUM 7.8 mg/dL (8.5-10.1); CREATININE 0.7 mg/dL (0.55-1.3); POTASSIUM 3.2 mmol/L (3.5-5.1)
[2019-12-15] MEDS ORDERED: POTASSIUM CHLORIDE ORAL LIQUID 20 MEQ/15 ML PO ONE (08:59)
[2019-12-15] MEDS ORDERED: PT OWN MED DRAWER 7, Y5N ONE ×3 (09:53→21:07)
[2019-12-15] MEDS ORDERED: POLYETHYLENE GLYCOL 3350 119 GM BTL PO SCH (10:00)
[2019-12-15] MEDS: SERTRALINE HCL 50 MG TABLET (FP) PO SCH (10:14)
[2019-12-15] MEDS: PREGABALIN 75 MG CAPSULE PO SCH (10:14)
[2019-12-15] MEDS: FOLIC ACID 1 MG TABLET (FP) PO SCH (10:14)
[2019-12-15] MEDS: PANTOPRAZOLE 20 MG TABLET PO SCH (10:14)
[2019-12-15] MEDS: FERROUS SO4 325 MG TABLET (FP) PO SCH (10:14)
[2019-12-15] MEDS: CALCIUM 500MG/VIT-D 200 UNITS COMBO TABLET (FP) PO SCH (10:14)
[2019-12-15] MEDS: oxyCODONE HCL 10 MG SUSTAINED ACTING TABLET PO SCH ×2 (10:15→21:41)
[2019-12-15] MEDS: FUROSEMIDE 20 MG TABLET (FP) PO SCH (10:15)
[2019-12-15] MEDS: MULTIVITAMINS THER W-MINERALS COMBO TABLET (FP) PO SCH (10:15)
[2019-12-15] MEDS: LOSARTAN POTASSIUM 50 MG TABLET (FP) PO SCH (10:15)
[2019-12-15] MEDS: LORATADINE 10 MG TABLET PO SCH (10:15)
[2019-12-15] MEDS: metoPROLOL SUCCINATE 25 MG TAB.SR.24H (FP) PO SCH (10:15)
[2019-12-15] MEDS: BRIMONIDINE TARTRATE 0.2% OPHTHALMIC 5 ML BOTTLE OU SCH ×2 (10:16→21:55)
[2019-12-15] MEDS ORDERED: KCL 10 MEQ IVPB 10 MEQ/100 ML INFUS.BAG IVPB SCH (11:15)
--- NOTE | 2019-12-15 11:31 | PN ---
Progress Note, Physician History of Present Illness: pulmonary alert,still c/o upper abd discomfort,-sob - Current Medication List Current Medications: Active Medications Al Hydroxide/Mg Hydroxide (Mylanta Oral Suspension -) 30 ml PO Q6H PRN PRN Reason: DYSPEPSIA Atorvastatin Calcium (Lipitor -) 20 mg PO HS [facility] Last Admin: 12/14/19 21:02 Dose: 20 mg Baclofen (Lioresal -) 10 mg PO TID [facility] Last Admin: 12/15/19 05:17 Dose: 10 mg Brimonidine Tartrate (Alphagan 0.2% -) 1 drop OU BID [facility] Last Admin: 12/15/19 10:16 Dose: 1 drop Calcium Carbonate/Cholecalciferol (Os-Wilbur 500+D -) 2 tab PO DAILY [facility] Last Admin: 12/15/19 10:14 Dose: 2 tab Diphenhydramine HCl (Benadryl -) 25 mg PO Q6H PRN PRN Reason: FOR ITCHING Diphenhydramine HCl (Benadryl Injection -) 25 mg IVPUSH ONCE PRN PRN Reason: FOR ITCHING Last Admin: 12/12/19 23:01 Dose: 25 mg Docusate Sodium (Colace -) 100 mg PO TID [facility] Last Admin: 12/15/19 05:17 Dose: 100 mg Ferrous Sulfate (Feosol -) 325 mg PO DAILY [facility] Last Admin: 12/15/19 10:14 Dose: 325 mg Folic Acid (Folic Acid -) 1 mg PO DAILY [facility] Last Admin: 12/15/19 10:14 Dose: 1 mg Furosemide (Lasix -) 20 mg PO DAILY [facility] Last Admin: 12/15/19 10:15 Dose: 20 mg Heparin Sodium (Porcine) (Heparin -) 5,000 unit SQ Q8H [facility] Last Admin: 12/15/19 05:17 Dose: 5,000 unit Cefazolin Sodium 1 gm/ (Dextrose) 50 mls @ 100 mls/hr IVPB Q8H [facility] Last Admin: 12/15/19 03:33 Dose: 100 mls/hr Sodium Chloride (Normal Saline -) 1,000 mls @ 100 mls/hr IV ASDIR [facility] Last Admin: 12/15/19 07:06 Dose: 100 mls/hr Potassium Chloride (Potassium Chloride 10 Meq Premix Ivpb -) 10 meq in 100 mls @ 100 mls/hr IVPB Q60M [facility] Stop: 12/15/19 12:14 Insulin Aspart (Novolog Vial Sliding Scale -) 1 vial SQ ACHS [facility]; Protocol Last Admin: 12/15/19 06:07 Dose: Not Given Latanoprost (Xalatan 0.005% Eye Drops -) 1 drop OD HS [facility] Last Admin: 12/14/19 21:10 Dose: 1 drop Loratadine (Claritin -) 10 mg PO DAILY [facility] Last Admin: 12/15/19 10:15 Dose: 10 mg Losartan Potassium (Cozaar -) 100 mg PO DAILY [facility] Last Admin: 12/15/19 10:15 Dose: 100 mg Metformin HCl (Glucophage -) [facility] Last Admin: 12/13/19 06:19 Dose: Not Given Metoprolol Succinate (Toprol Xl -) 25 mg PO DAILY [facility] Last Admin: 12/15/19 10:15 Dose: 25 mg Multivitamins/Minerals (Theragran-M) 1 each PO DAILY [facility] Last Admin: 12/15/19 10:15 Dose: 1 each Naloxone HCl (Narcan -) 0.4 mg IVPUSH ONCE PRN PRN Reason: Sedation Ondansetron HCl (Zofran Injection) 4 mg IVPUSH Q6H PRN PRN Reason: NAUSEA Last Admin: 12/14/19 01:36 Dose: 4 mg Oxycodone HCl (Oxycontin -) 10 mg PO BID [facility] Last Admin: 12/15/19 10:15 Dose: 10 mg Oxycodone HCl (Roxicodone -) 5 mg PO Q6H PRN PRN Reason: PAIN LEVEL 1-5 Last Admin: 12/15/19 02:53 Dose: 5 mg Pantoprazole Sodium (Protonix -) 20 mg PO DAILY [facility] Last Admin: 12/15/19 10:14 Dose: 20 mg Polyethylene Glycol (Miralax (For Daily Use) -) 17 gm PO DAILY [facility] Last Admin: 12/15/19 10:16 Dose: 17 g Pregabalin (Lyrica -) 150 mg PO DAILY [facility] Last Admin: 12/15/19 10:14 Dose: 150 mg Sertraline HCl (Zoloft -) 50 mg PO DAILY [facility] Last Admin: 12/15/19 10:14 Dose: 50 mg Simethicone (Mylicon -) 80 mg PO Q4H PRN PRN Reason: DYSPEPSIA Last Admin: 12/14/19 18:15 Dose: 80 mg - Objective Vital Signs: Vital Signs Temperature 98.8 F 12/15/19 05:41 Pulse Rate 103 H 12/15/19 05:41 Respiratory Rate 18 12/15/19 05:41 Blood Pressure 147/79 12/15/19 05:41 O2 Sat by Pulse Oximetry (%) 98 12/14/19 21:00 Constitutional: Yes: Well Nourished, Calm Eyes: Yes: WNL HENT: Yes: WNL Neck: Yes: WNL Cardiovascular: Yes: Regular Rate and Rhythm, S1, S2 Respiratory: Yes: Diminished Gastrointestinal: Yes: Normal Bowel Sounds, Soft Extremities: Yes: WNL Edema: No Labs: CBC, BMP 12/15/19 07:10 12/15/19 07:10 Problem List - Problems (1) S/P spinal surgery Code(s): Z98.890 - OTHER SPECIFIED POSTPROCEDURAL STATES (2) Thoracic radiculopathy due to degenerative joint disease of spine Code(s): M47.24 - OTHER SPONDYLOSIS WITH RADICULOPATHY, THORACIC REGION (3) GERD (gastroesophageal reflux disease) Code(s): K21.9 - GASTRO-ESOPHAGEAL REFLUX DISEASE WITHOUT ESOPHAGITIS Qualifiers: Esophagitis presence: without esophagitis Qualified Code(s): K21.9 - Gastro -esophageal reflux disease without esophagitis (4) HLD (hyperlipidemia) Code(s): E78.5 - HYPERLIPIDEMIA, UNSPECIFIED (5) HTN (hypertension) Code(s): I10 - ESSENTIAL (PRIMARY) HYPERTENSION Qualifiers: Hypertension type: essential hypertension Qualified Code(s): I10 - Essential (primary) hypertension (6) Thoracic aortic aneurysm Code(s): I71.2 - THORACIC AORTIC ANEURYSM, WITHOUT RUPTURE (7) Thoracic spinal stenosis Code(s): M48.04 - SPINAL STENOSIS, THORACIC REGION (8) Chest pain Code(s): R07.9 - CHEST PAIN, UNSPECIFIED (9) Dyspnea Code(s): R06.00 - DYSPNEA, UNSPECIFIED (10) Fever Code(s): R50.9 - FEVER, UNSPECIFIED (11) Anemia Code(s): D64.9 - ANEMIA, UNSPECIFIED Assessment/Plan IMP CHEST PAIN LIKELY SECONDARY TO RECENT SURGERY S/P T5-T11 DECOMPRESSION AND POSTERIOR FUSION NIDDM HTN HLD LEFT EYE GLAUCOMA H/O THORACIC AORTIC ANEURYSM FEVER ANEMIA PLAN ANALGESICS INCENTIVE SPIROMETER NASAL O2 NEEDED DVT PROPHYLAXIS ABX PER ID MONITOR LYTES,H+H NORMAL TRANSFUSION THRESHOLD DR BYNUM Problem List - Problems (1) S/P spinal surgery Code(s): Z98.890 - OTHER SPECIFIED POSTPROCEDURAL STATES (2) Thoracic radiculopathy due to degenerative joint disease of spine Code(s): M47.24 - OTHER SPONDYLOSIS WITH RADICULOPATHY, THORACIC REGION (3) GERD (gastroesophageal reflux disease) Code(s): K21.9 - GASTRO-ESOPHAGEAL REFLUX DISEASE WITHOUT ESOPHAGITIS Qualifiers: Esophagitis presence: without esophagitis Qualified Code(s): K21.9 - Gastro -esophageal reflux disease without esophagitis (4) HLD (hyperlipidemia) Code(s): E78.5 - HYPERLIPIDEMIA, UNSPECIFIED (5) HTN (hypertension) Code(s): I10 - ESSENTIAL (PRIMARY) HYPERTENSION Qualifiers: Hypertension type: essential hypertension Qualified Code(s): I10 - Essential (primary) hypertension (6) Thoracic aortic aneurysm Code(s): I71.2 - THORACIC AORTIC ANEURYSM, WITHOUT RUPTURE (7) Thoracic spinal stenosis Code(s): M48.04 - SPINAL STENOSIS, THORACIC REGION (8) Chest pain Code(s): R07.9 - CHEST PAIN, UNSPECIFIED (9) Dyspnea Code(s): R06.00 - DYSPNEA, UNSPECIFIED (10) Fever Code(s): R50.9 - FEVER, UNSPECIFIED (11) Anemia Code(s): D64.9 - ANEMIA, UNSPECIFIED
--- NOTE | 2019-12-15 14:17 | PN ---
Progress Note (short form) - Note Progress Note: complains of abdominal discomfort fevers resolved, chest discomfort resolved Vital Signs Period Temp Pulse Resp BP Sys/Sales Pulse Ox Last 24 Hr 98.5 F-98.9 F 99-105 16-20 135-153/75-89 95-98 cor-rrr lungs clear abd soft, no distention notes pain on palpation throughout ext no edema +BILL drain with blood tinged serous fluid CBC, BMP 12/15/19 07:10 12/15/19 07:10 Microbiology 12/12/19 21:05 Blood - Peripheral Venous Blood Culture - Preliminary NO GROWTH OBTAINED AFTER 48 HOURS, INCUBATION TO CONTINUE FOR 3 DAYS. 12/12/19 21:05 Blood - Peripheral Venous Blood Culture - Preliminary NO GROWTH OBTAINED AFTER 48 HOURS, INCUBATION TO CONTINUE FOR 3 DAYS. 12/12/19 21:45 Urine - Urine Kumar Urine Culture - Final NO GROWTH OBTAINED a/p postop fevers resolved pod #3 cultures negative still with post op drain in place ancef per surgery abdominal pain - per GI postop anemia- PLEASE CALL BACK IF NEEDED Problem List - Problems (1) Postoperative fever Code(s): R50.82 - POSTPROCEDURAL FEVER (2) S/P spinal surgery Code(s): Z98.890 - OTHER SPECIFIED POSTPROCEDURAL STATES
--- NOTE | 2019-12-15 14:34 | PN ---
Progress Note, Physician Chief Complaint: POD 3 AWAKE ALERT DENIES FEVER OR CHILLS STILL HAS MILD ABDOMINAL PAIN NPO - Current Medication List Current Medications: Active Medications Al Hydroxide/Mg Hydroxide (Mylanta Oral Suspension -) 30 ml PO Q6H PRN PRN Reason: DYSPEPSIA Atorvastatin Calcium (Lipitor -) 20 mg PO HS [facility] Last Admin: 12/14/19 21:02 Dose: 20 mg Baclofen (Lioresal -) 10 mg PO TID [facility] Last Admin: 12/15/19 13:20 Dose: 10 mg Bisacodyl (Dulcolax Suppository -) 10 mg RC DAILY PRN PRN Reason: CONSTIPATION Brimonidine Tartrate (Alphagan 0.2% -) 1 drop OU BID [facility] Last Admin: 12/15/19 10:16 Dose: 1 drop Calcium Carbonate/Cholecalciferol (Os-Wilbur 500+D -) 2 tab PO DAILY [facility] Last Admin: 12/15/19 10:14 Dose: 2 tab Diphenhydramine HCl (Benadryl -) 25 mg PO Q6H PRN PRN Reason: FOR ITCHING Diphenhydramine HCl (Benadryl Injection -) 25 mg IVPUSH ONCE PRN PRN Reason: FOR ITCHING Last Admin: 12/12/19 23:01 Dose: 25 mg Docusate Sodium (Colace -) 100 mg PO TID [facility] Last Admin: 12/15/19 13:20 Dose: 100 mg Ferrous Sulfate (Feosol -) 325 mg PO DAILY [facility] Last Admin: 12/15/19 10:14 Dose: 325 mg Folic Acid (Folic Acid -) 1 mg PO DAILY [facility] Last Admin: 12/15/19 10:14 Dose: 1 mg Furosemide (Lasix -) 20 mg PO DAILY [facility] Last Admin: 12/15/19 10:15 Dose: 20 mg Heparin Sodium (Porcine) (Heparin -) 5,000 unit SQ Q8H [facility] Last Admin: 12/15/19 13:20 Dose: 5,000 unit Cefazolin Sodium 1 gm/ (Dextrose) 50 mls @ 100 mls/hr IVPB Q8H [facility] Last Admin: 12/15/19 12:22 Dose: 100 mls/hr Sodium Chloride (Normal Saline -) 1,000 mls @ 100 mls/hr IV ASDIR [facility] Last Admin: 12/15/19 13:54 Dose: Not Given Insulin Aspart (Novolog Vial Sliding Scale -) 1 vial SQ ACHS [facility]; Protocol Last Admin: 12/15/19 12:14 Dose: Not Given Latanoprost (Xalatan 0.005% Eye Drops -) 1 drop OD HS [facility] Last Admin: 12/14/19 21:10 Dose: 1 drop Loratadine (Claritin -) 10 mg PO DAILY [facility] Last Admin: 12/15/19 10:15 Dose: 10 mg Losartan Potassium (Cozaar -) 100 mg PO DAILY [facility] Last Admin: 12/15/19 10:15 Dose: 100 mg [facility] ([facility] -) [facility] Last Admin: 12/13/19 06:19 Dose: Not Given Metoprolol Succinate (Toprol Xl -) 25 mg PO DAILY [facility] Last Admin: 12/15/19 10:15 Dose: 25 mg Multivitamins/Minerals (Theragran-M) 1 each PO DAILY [facility] Last Admin: 12/15/19 10:15 Dose: 1 each Naloxone HCl (Narcan -) 0.4 mg IVPUSH ONCE PRN PRN Reason: Sedation Ondansetron HCl (Zofran Injection) 4 mg IVPUSH Q6H PRN PRN Reason: NAUSEA Last Admin: 12/14/19 01:36 Dose: 4 mg Oxycodone HCl (Oxycontin -) 10 mg PO BID [facility] Last Admin: 12/15/19 10:15 Dose: 10 mg Oxycodone HCl (Roxicodone -) 5 mg PO Q6H PRN PRN Reason: PAIN LEVEL 1-5 Last Admin: 12/15/19 02:53 Dose: 5 mg Pantoprazole Sodium (Protonix -) 20 mg PO DAILY [facility] Last Admin: 12/15/19 10:14 Dose: 20 mg Polyethylene Glycol (Miralax (For Daily Use) -) 17 gm PO DAILY [facility] Last Admin: 12/15/19 10:16 Dose: 17 g Pregabalin (Lyrica -) 150 mg PO DAILY [facility] Last Admin: 12/15/19 10:14 Dose: 150 mg Sertraline HCl (Zoloft -) 50 mg PO DAILY [facility] Last Admin: 12/15/19 10:14 Dose: 50 mg Simethicone (Mylicon -) 80 mg PO Q4H PRN PRN Reason: DYSPEPSIA Last Admin: 12/14/19 18:15 Dose: 80 mg - Objective Vital Signs: Vital Signs Temperature 99.3 F 12/15/19 14:00 Pulse Rate 105 H 12/15/19 14:00 Respiratory Rate 16 12/15/19 14:00 Blood Pressure 155/89 12/15/19 14:00 O2 Sat by Pulse Oximetry (%) 95 12/15/19 09:00 Constitutional: Yes: Mild Distress Cardiovascular: Yes: WNL Respiratory: Yes: WNL Gastrointestinal: Yes: Soft, Tenderness (MILD EPIGASTRIC TENDERNESS +DRAIN WITH SANGUINOUS FLUID) Musculoskeletal: Yes: Muscle Weakness Edema: No Wound/Incision: Yes: Draining Labs: CBC, BMP 12/15/19 07:10 12/15/19 07:10 Problem List - Problems (1) Thoracic radiculopathy due to degenerative joint disease of spine Code(s): M47.24 - OTHER SPONDYLOSIS WITH RADICULOPATHY, THORACIC REGION (2) S/P spinal surgery Code(s): Z98.890 - OTHER SPECIFIED POSTPROCEDURAL STATES (3) Abdominal pain Code(s): R10.9 - UNSPECIFIED ABDOMINAL PAIN (4) DJD (degenerative joint disease) Code(s): M19.90 - UNSPECIFIED OSTEOARTHRITIS, UNSPECIFIED SITE Qualifiers: Osteoarthritis location: spine Spinal region: lumbar Spinal osteoarthritis complication: with myelopathy Qualified Code(s): M47.16 - Other spondylosis with myelopathy, lumbar region (5) Diabetes Code(s): E11.9 - TYPE 2 DIABETES MELLITUS WITHOUT COMPLICATIONS Qualifiers: Diabetes mellitus type: type 2 Diabetes mellitus skilled nursing insulin use: with skilled nursing use Diabetes mellitus complication status: with unspecified complications (6) GERD (gastroesophageal reflux disease) Code(s): K21.9 - GASTRO-ESOPHAGEAL REFLUX DISEASE WITHOUT ESOPHAGITIS Qualifiers: Esophagitis presence: without esophagitis Qualified Code(s): K21.9 - Gastro -esophageal reflux disease without esophagitis (7) HLD (hyperlipidemia) Code(s): E78.5 - HYPERLIPIDEMIA, UNSPECIFIED (8) HTN (hypertension) Code(s): I10 - ESSENTIAL (PRIMARY) HYPERTENSION Qualifiers: Hypertension type: essential hypertension Qualified Code(s): I10 - Essential (primary) hypertension (9) History of lumbar fusion Code(s): Z98.1 - ARTHRODESIS STATUS (10) Thoracic spinal stenosis Code(s): M48.04 - SPINAL STENOSIS, THORACIC REGION Assessment/Plan NPO EXCEPT MEDS SURGERY WORKUP FOR ABDOMINAL DUEDONEUM VOLVULUS IV ANCEF PER NEUROSURGERY DVT PROPHYLAXIS CAN LIKELY START CLEARS TOMORROW IF FEELING BETTER PT EVAL/OOB-CHAIR NEEDS INCENTIVE SPIROMETRY
--- NOTE | 2019-12-15 15:10 | PN ---
Progress Note, Physician History of Present Illness: Pt seen and examined at bedside. He is awake and alert. He denies shortness of breath. - Current Medication List Current Medications: Active Medications Al Hydroxide/Mg Hydroxide (Mylanta Oral Suspension -) 30 ml PO Q6H PRN PRN Reason: DYSPEPSIA Atorvastatin Calcium (Lipitor -) 20 mg PO HS [facility] Last Admin: 12/14/19 21:02 Dose: 20 mg Baclofen (Lioresal -) 10 mg PO TID [facility] Last Admin: 12/15/19 13:20 Dose: 10 mg Bisacodyl (Dulcolax Suppository -) 10 mg RC DAILY PRN PRN Reason: CONSTIPATION Brimonidine Tartrate (Alphagan 0.2% -) 1 drop OU BID [facility] Last Admin: 12/15/19 10:16 Dose: 1 drop Calcium Carbonate/Cholecalciferol (Os-Wilbur 500+D -) 2 tab PO DAILY [facility] Last Admin: 12/15/19 10:14 Dose: 2 tab Diphenhydramine HCl (Benadryl -) 25 mg PO Q6H PRN PRN Reason: FOR ITCHING Diphenhydramine HCl (Benadryl Injection -) 25 mg IVPUSH ONCE PRN PRN Reason: FOR ITCHING Last Admin: 12/12/19 23:01 Dose: 25 mg Docusate Sodium (Colace -) 100 mg PO TID [facility] Last Admin: 12/15/19 13:20 Dose: 100 mg Ferrous Sulfate (Feosol -) 325 mg PO DAILY [facility] Last Admin: 12/15/19 10:14 Dose: 325 mg Folic Acid (Folic Acid -) 1 mg PO DAILY [facility] Last Admin: 12/15/19 10:14 Dose: 1 mg Furosemide (Lasix -) 20 mg PO DAILY [facility] Last Admin: 12/15/19 10:15 Dose: 20 mg Heparin Sodium (Porcine) (Heparin -) 5,000 unit SQ Q8H [facility] Last Admin: 12/15/19 13:20 Dose: 5,000 unit Cefazolin Sodium 1 gm/ (Dextrose) 50 mls @ 100 mls/hr IVPB Q8H [facility] Last Admin: 12/15/19 12:22 Dose: 100 mls/hr Sodium Chloride (Normal Saline -) 1,000 mls @ 100 mls/hr IV ASDIR [facility] Last Admin: 12/15/19 13:54 Dose: Not Given Insulin Aspart (Novolog Vial Sliding Scale -) 1 vial SQ ACHS [facility]; Protocol Last Admin: 12/15/19 12:14 Dose: Not Given Latanoprost (Xalatan 0.005% Eye Drops -) 1 drop OD HS [facility] Last Admin: 12/14/19 21:10 Dose: 1 drop Loratadine (Claritin -) 10 mg PO DAILY [facility] Last Admin: 12/15/19 10:15 Dose: 10 mg Losartan Potassium (Cozaar -) 100 mg PO DAILY [facility] Last Admin: 12/15/19 10:15 Dose: 100 mg Metformin HCl (Glucophage -) [facility] Last Admin: 12/13/19 06:19 Dose: Not Given Metoprolol Succinate (Toprol Xl -) 25 mg PO DAILY [facility] Last Admin: 12/15/19 10:15 Dose: 25 mg Multivitamins/Minerals (Theragran-M) 1 each PO DAILY [facility] Last Admin: 12/15/19 10:15 Dose: 1 each Naloxone HCl (Narcan -) 0.4 mg IVPUSH ONCE PRN PRN Reason: Sedation Ondansetron HCl (Zofran Injection) 4 mg IVPUSH Q6H PRN PRN Reason: NAUSEA Last Admin: 12/14/19 01:36 Dose: 4 mg Oxycodone HCl (Oxycontin -) 10 mg PO BID [facility] Last Admin: 12/15/19 10:15 Dose: 10 mg Oxycodone HCl (Roxicodone -) 5 mg PO Q6H PRN PRN Reason: PAIN LEVEL 1-5 Last Admin: 12/15/19 02:53 Dose: 5 mg Pantoprazole Sodium (Protonix -) 20 mg PO DAILY [facility] Last Admin: 12/15/19 10:14 Dose: 20 mg Polyethylene Glycol (Miralax (For Daily Use) -) 17 gm PO DAILY [facility] Last Admin: 12/15/19 10:16 Dose: 17 g Pregabalin (Lyrica -) 150 mg PO DAILY [facility] Last Admin: 12/15/19 10:14 Dose: 150 mg Sertraline HCl (Zoloft -) 50 mg PO DAILY [facility] Last Admin: 12/15/19 10:14 Dose: 50 mg Simethicone (Mylicon -) 80 mg PO Q4H PRN PRN Reason: DYSPEPSIA Last Admin: 12/14/19 18:15 Dose: 80 mg - Objective Vital Signs: Vital Signs Temperature 99.3 F 12/15/19 14:00 Pulse Rate 105 H 12/15/19 14:00 Respiratory Rate 16 12/15/19 14:00 Blood Pressure 155/89 12/15/19 14:00 O2 Sat by Pulse Oximetry (%) 95 12/15/19 09:00 Constitutional: Yes: Calm Eyes: Yes: Conjunctiva Clear HENT: Yes: Atraumatic Neck: Yes: Supple Cardiovascular: Yes: S1, S2 Respiratory: Yes: CTA Bilaterally Gastrointestinal: Yes: Soft Genitourinary: Yes: WNL Musculoskeletal: Yes: Back Pain Edema: No Neurological: Yes: Oriented Psychiatric: Yes: Oriented Labs: CBC, BMP 12/15/19 07:10 12/15/19 07:10 Problem List - Problems (1) Diabetes Code(s): E11.9 - TYPE 2 DIABETES MELLITUS WITHOUT COMPLICATIONS Qualifiers: Diabetes mellitus type: type 2 Diabetes mellitus buttermaker continuous churn insulin use: with long-term use Diabetes mellitus complication status: with unspecified complications (2) GERD (gastroesophageal reflux disease) Code(s): K21.9 - GASTRO-ESOPHAGEAL REFLUX DISEASE WITHOUT ESOPHAGITIS Qualifiers: Esophagitis presence: without esophagitis Qualified Code(s): K21.9 - Gastro -esophageal reflux disease without esophagitis (3) HLD (hyperlipidemia) Code(s): E78.5 - HYPERLIPIDEMIA, UNSPECIFIED (4) HTN (hypertension) Code(s): I10 - ESSENTIAL (PRIMARY) HYPERTENSION Qualifiers: Hypertension type: essential hypertension Qualified Code(s): I10 - Essential (primary) hypertension Assessment/Plan Current Medications Generic Name Dose Route Start Last Admin Trade Name Freq PRN Reason Stop Dose Admin Al Hydroxide/Mg Hydroxide 30 ml 12/13/19 09:39 Mylanta Oral Suspension - PO Q6H PRN DYSPEPSIA Atorvastatin Calcium 20 mg 12/12/19 22:00 12/14/19 21:02 Lipitor - PO 20 mg HS [facility] Administration Baclofen 10 mg 12/13/19 14:00 12/15/19 13:20 Lioresal - PO 10 mg TID [facility] Administration Bisacodyl 10 mg 12/15/19 13:55 Dulcolax Suppository - RC DAILY PRN CONSTIPATION Brimonidine Tartrate 1 drop 12/12/19 22:00 12/15/19 10:16 Alphagan 0.2% - OU 1 drop BID [facility] Administration Calcium Carbonate/Cholecalciferol 2 tab 12/13/19 13:45 12/15/19 10:14 Os-Wilbur 500+D - PO 2 tab DAILY [facility] Administration Diphenhydramine HCl 25 mg 12/12/19 14:16 Benadryl - PO Q6H PRN FOR ITCHING Diphenhydramine HCl 25 mg 12/12/19 14:26 12/12/19 23:01 Benadryl Injection - IVPUSH 25 mg ONCE PRN Administration FOR ITCHING Docusate Sodium 100 mg 12/12/19 22:00 12/15/19 13:20 Colace - PO 100 mg TID [facility] Administration Ferrous Sulfate 325 mg 12/13/19 10:00 12/15/19 10:14 Feosol - PO 325 mg DAILY [facility] Administration Folic Acid 1 mg 12/13/19 10:00 12/15/19 10:14 Folic Acid - PO 1 mg DAILY [facility] Administration Furosemide 20 mg 12/14/19 10:00 12/15/19 10:15 Lasix - PO 20 mg DAILY [facility] Administration Heparin Sodium (Porcine) 5,000 unit 12/12/19 22:00 12/15/19 13:20 Heparin - SQ 5,000 unit Q8H [facility] Administration Cefazolin Sodium 1 gm/ 50 mls @ 100 mls/hr 12/12/19 20:30 12/15/19 12:22 Dextrose IVPB 100 mls/hr Q8H [facility] Administration Sodium Chloride 1,000 mls @ 100 mls/hr 12/13/19 13:32 12/15/19 13:54 Normal Saline - IV Not Given ASDIR [facility] Potassium Chloride 10 meq in 100 mls @ 100 mls/hr 12/15/19 15:15 Potassium Chloride 10 Meq Premix Ivpb - IVPB 12/15/19 17:14 Q60M [facility] Insulin Aspart 1 vial 12/12/19 16:30 12/15/19 12:14 Novolog Vial Sliding Scale - SQ Not Given ACHS [facility] Protocol Latanoprost 1 drop 12/12/19 22:00 12/14/19 21:10 Xalatan 0.005% Eye Drops - OD 1 drop HS [facility] Administration Loratadine 10 mg 12/13/19 10:00 12/15/19 10:15 Claritin - PO 10 mg DAILY [facility] Administration Losartan Potassium 100 mg 12/13/19 10:00 12/15/19 10:15 Cozaar - PO 100 mg DAILY [facility] Administration Metformin HCl 1,000 mg 12/13/19 07:00 12/13/19 06:19 Glucophage - PO Not Given BIDAC [facility] Metoprolol Succinate 25 mg 12/13/19 10:00 12/15/19 10:15 Toprol Xl - PO 25 mg DAILY [facility] Administration Multivitamins/Minerals 1 each 12/13/19 10:00 12/15/19 10:15 Theragran-M PO 1 each DAILY [facility] Administration Naloxone HCl 0.4 mg 12/12/19 14:26 Narcan - IVPUSH ONCE PRN Sedation Ondansetron HCl 4 mg 12/13/19 12:38 12/14/19 01:36 Zofran Injection IVPUSH 4 mg Q6H PRN Administration NAUSEA Oxycodone HCl 10 mg 12/13/19 14:26 12/15/19 10:15 Oxycontin - PO 10 mg BID [facility] Administration Oxycodone HCl 5 mg 12/14/19 11:37 12/15/19 02:53 Roxicodone - PO 5 mg Q6H PRN Administration PAIN LEVEL 1-5 Pantoprazole Sodium 20 mg 12/13/19 10:00 12/15/19 10:14 Protonix - PO 20 mg DAILY [facility] Administration Polyethylene Glycol 17 gm 12/15/19 10:00 12/15/19 10:16 Miralax (For Daily Use) - PO 17 g DAILY [facility] Administration Pregabalin 150 mg 12/13/19 10:00 12/15/19 10:14 Lyrica - PO 150 mg DAILY [facility] Administration Sertraline HCl 50 mg 12/13/19 10:00 12/15/19 10:14 Zoloft - PO 50 mg DAILY OVI Administration Simethicone 80 mg 12/13/19 09:39 12/14/19 18:15 Mylicon - PO 80 mg Q4H PRN Administration DYSPEPSIA Impression 1. hypocalcemia with corrected low normal 2. dm 3. htn 4. s/p back surgery 5. gerd 6. mild rhabdo Plan - d/c lasix - replace potassium - cont calcium - repeat cmp and mag - avoid nsaids for now - repeat cpk in am
[2019-12-15] MEDS: KCL 10 MEQ IVPB 10 MEQ/100 ML INFUS.BAG IVPB SCH ×2 (15:24→17:15)
--- NOTE | 2019-12-15 17:13 | PN.GI ---
GI Progress Note Subjective: Sitting up in chair with brace in place States still having intermittent pain No BM as of yet Bloody drainage from back BILL drain - Objective Vital Signs: Vital Signs Temperature 99.3 F 12/15/19 14:00 Pulse Rate 105 H 12/15/19 14:00 Respiratory Rate 16 12/15/19 14:00 Blood Pressure 155/89 12/15/19 14:00 O2 Sat by Pulse Oximetry (%) 95 12/15/19 09:00 Constitutional: Calm Eyes: No: Sclera Icterus Cardiovascular: Yes: Tachycardia ...Auscultate: Yes: Normoactive Bowel Sounds ...Palpate: Yes: Soft. No: Tenderness Edema: No (No LE edema) Labs: CBC, BMP 12/15/19 07:10 Problem List - Problems (1) Abdominal pain Assessment/Plan: Suspect referred pain: Post op care per surgery Also with ileus: Increased MiraLAX to 17g BID Code(s): R10.9 - UNSPECIFIED ABDOMINAL PAIN
[2019-12-15 17:14] LABS: ALBUMIN 3.2 g/dl (3.4-5.0); BILIRUBIN,TOTAL 0.9 mg/dL (0.2-1); CALCIUM 8.5 mg/dL (8.5-10.1); CREATININE 0.7 mg/dL (0.55-1.3); MAGNESIUM 1.9 mg/dL (1.8-2.4); POTASSIUM 3.6 mmol/L (3.5-5.1); TOT PROT 6.9 g/dl (6.4-8.2)
[2019-12-15] MEDS: metFORMIN HCL 500 MG TABLET (FP) PO SCH (17:15)
[2019-12-15] MEDS: D5-1/2NS+10 MEQ KCL - 10 MEQ/1,000 ML INFUS.BAG IV SCH (18:39)
[2019-12-15] MEDS: ATORVASTATIN CA 20 MG TABLET (FP) PO SCH (21:41)
[2019-12-15] MEDS: POLYETHYLENE GLYCOL 3350 119 GM BTL PO SCH (21:54)
[2019-12-15] MEDS: LATANOPROST 0.005% OPHTH SOLN 2.5ML BOTTLE OD SCH (21:54)
[2019-12-16] MEDS: MAG HYDROX/AL HYDROX/SIMETH 30 ML UNIT-DOSE CUP PO PRN (00:09)
[2019-12-16] MEDS: diphenhydrAMINE HCL 25 MG CAPSULE (FP) PO PRN (00:40)
[2019-12-16] MEDS ORDERED: ceFAZolin SODIUM 1 GM VIAL ONE ×3 (05:11→19:16)
[2019-12-16] MEDS ORDERED: DEXTROSE 5%-WATER - 50 ML IVPB ONE ×3 (05:12→19:16)
[2019-12-16] MEDS: CEFAZOLIN 1 GM in DEXTROSE 5%-WATER - 50 ML IVPB SCH ×3 (05:16→19:34)
[2019-12-16] MEDS: HEPARIN NA (PORCINE) 5,000 UNITS/ML 1ML VIAL SQ SCH ×3 (06:21→21:11)
[2019-12-16] MEDS: DOCUSATE SODIUM 100 MG CAPSULE (FP) PO SCH ×3 (06:21→21:10)
[2019-12-16] MEDS: BACLOFEN 10 MG TABLET (FP) PO SCH ×3 (06:21→21:10)
[2019-12-16] MEDS: INSULIN SLIDING SCALE (NOVOLOG) 1 VIAL SQ SCH ×4 (06:23→21:11)
[2019-12-16] MEDS: metFORMIN HCL 500 MG TABLET (FP) PO SCH (06:23)
[2019-12-16] MEDS: oxyCODONE HCL 5 MG TABLET PO PRN ×2 (06:49→19:20)
[2019-12-16 07:02] LABS: HEMATOCRIT 23.2 % (35.4-49); HEMOGLOBIN 8.2 GM/dL (11.7-16.9); MCH 34.6 pg (25.7-33.7); MCHC 35.4 g/dl (32.0-35.9); MEAN CELL VOLUME 97.7 fl (80-96); MEAN PLT VOLUME 8.9 fl (7.5-11.1); RBC 2.38 M/mm3 (4.00-5.60); RDW 15.3 % (11.9-15.9); WHITE BLOOD COUNT 6.5 K/mm3 (4.0-10.0)
[2019-12-16 07:34] LABS: ALBUMIN 2.6 g/dl (3.4-5.0); ALK PHOS 55 U/L (45-117); ANION GAP 6 MMOL/L (8-16); BILIRUBIN,TOTAL 0.8 mg/dL (0.2-1); BLOOD UREA NITROGEN 12.5 mg/dL (7-18); CALCIUM 7.9 mg/dL (8.5-10.1); CHLORIDE 104 mmol/L (98-107); CO2 27 mmol/L (21-32); CREATININE 0.6 mg/dL (0.55-1.3); GLUCOSE,RANDOM 160 mg/dL (74-106); MAGNESIUM 1.9 mg/dL (1.8-2.4); POTASSIUM 3.6 mmol/L (3.5-5.1); SGOT/AST 22 U/L (15-37); SGPT/ALT 15 U/L (13-61); SODIUM 138 mmol/L (136-145); TOT PROT 5.3 g/dl (6.4-8.2)
--- NOTE | 2019-12-16 08:10 | PN.GI ---
GI Progress Note Subjective: STATES HE IS HAVING LESS ABD PAIN; DENIES N/V AND MOVED HIS BOWEL THIS AM NURSE AT THE BEDSIDE - Objective Vital Signs: Vital Signs Temperature 98.4 F 12/16/19 05:35 Pulse Rate 103 H 12/16/19 05:35 Respiratory Rate 16 12/16/19 05:35 Blood Pressure 133/78 12/16/19 05:35 O2 Sat by Pulse Oximetry (%) 96 12/15/19 21:00 Constitutional: Well Nourished, No Distress Eyes: Yes: WNL HENT: Yes: WNL Neck: Yes: WNL Cardiovascular: Yes: WNL, Regular Rate and Rhythm Respiratory: Yes: WNL, Regular, CTA Bilaterally Gastrointestinal Inspection: Yes: WNL ...Auscultate: Yes: Normoactive Bowel Sounds Extremities: Yes: WNL Edema: No Labs: CBC, BMP 12/16/19 05:20 12/16/19 05:20 Problem List - Problems (1) Abdominal pain Assessment/Plan: C/W BOWEL REGIMEN ADVANCED TO CLEAR LIQUID DIET REPEAT AXR IN THE AM ORDERED AVOID NARCOTICS Code(s): R10.9 - UNSPECIFIED ABDOMINAL PAIN (2) Anemia Code(s): D64.9 - ANEMIA, UNSPECIFIED
[2019-12-16 10:20] LABS: PLATELET COUNT 126 K/MM3 (134-434)
--- NOTE | 2019-12-16 10:38 | PN ---
Progress Note, Physician - Current Medication List Current Medications: Active Medications Al Hydroxide/Mg Hydroxide (Mylanta Oral Suspension -) 30 ml PO Q6H PRN PRN Reason: DYSPEPSIA Last Admin: 12/16/19 00:09 Dose: 30 ml Atorvastatin Calcium (Lipitor -) 20 mg PO HS [facility] Last Admin: 12/15/19 21:41 Dose: 20 mg Baclofen (Lioresal -) 10 mg PO TID [facility] Last Admin: 12/16/19 06:21 Dose: 10 mg Bisacodyl (Dulcolax Suppository -) 10 mg RC DAILY PRN PRN Reason: CONSTIPATION Brimonidine Tartrate (Alphagan 0.2% -) 1 drop OU BID [facility] Last Admin: 12/15/19 21:55 Dose: 1 drop Calcium Carbonate/Cholecalciferol (Os-Wilbur 500+D -) 2 tab PO DAILY [facility] Last Admin: 12/15/19 10:14 Dose: 2 tab Diphenhydramine HCl (Benadryl -) 25 mg PO Q6H PRN PRN Reason: FOR ITCHING Last Admin: 12/16/19 00:40 Dose: 25 mg Diphenhydramine HCl (Benadryl Injection -) 25 mg IVPUSH ONCE PRN PRN Reason: FOR ITCHING Last Admin: 12/12/19 23:01 Dose: 25 mg Docusate Sodium (Colace -) 100 mg PO TID [facility] Last Admin: 12/16/19 06:21 Dose: 100 mg Ferrous Sulfate (Feosol -) 325 mg PO DAILY [facility] Last Admin: 12/15/19 10:14 Dose: 325 mg Folic Acid (Folic Acid -) 1 mg PO DAILY [facility] Last Admin: 12/15/19 10:14 Dose: 1 mg Heparin Sodium (Porcine) (Heparin -) 5,000 unit SQ Q8H [facility] Last Admin: 12/16/19 06:21 Dose: 5,000 unit Cefazolin Sodium 1 gm/ (Dextrose) 50 mls @ 100 mls/hr IVPB Q8H [facility] Last Admin: 12/16/19 05:16 Dose: 100 mls/hr Potassium Chloride/Dextrose/Sod Cl (D5-1/2ns+10 Meq Kcl -) 10 meq in 1,000 mls @ 42 mls/hr IV ASDIR [facility] Last Admin: 12/15/19 18:39 Dose: 42 mls/hr Insulin Aspart (Novolog Vial Sliding Scale -) 1 vial SQ ACHS [facility]; Protocol Last Admin: 12/16/19 06:23 Dose: Not Given Latanoprost (Xalatan 0.005% Eye Drops -) 1 drop OD HS [facility] Last Admin: 12/15/19 21:54 Dose: 1 drop Loratadine (Claritin -) 10 mg PO DAILY [facility] Last Admin: 12/15/19 10:15 Dose: 10 mg Losartan Potassium (Cozaar -) 100 mg PO DAILY [facility] Last Admin: 12/15/19 10:15 Dose: 100 mg Metformin [facility] ([facility] -) [facility] Last Admin: 12/16/19 06:23 Dose: Not Given Metoprolol Succinate (Toprol Xl -) 25 mg PO DAILY [facility] Last Admin: 12/15/19 10:15 Dose: 25 mg Multivitamins/Minerals (Theragran-M) 1 each PO DAILY [facility] Last Admin: 12/15/19 10:15 Dose: 1 each Naloxone HCl (Narcan -) 0.4 mg IVPUSH ONCE PRN PRN Reason: Sedation Ondansetron HCl (Zofran Injection) 4 mg IVPUSH Q6H PRN PRN Reason: NAUSEA Last Admin: 12/14/19 01:36 Dose: 4 mg Oxycodone HCl (Oxycontin -) 10 mg PO BID [facility] Last Admin: 12/15/19 21:41 Dose: 10 mg Oxycodone HCl (Roxicodone -) 5 mg PO Q6H PRN PRN Reason: PAIN LEVEL 1-5 Last Admin: 12/16/19 06:49 Dose: 5 mg Pantoprazole Sodium (Protonix -) 20 mg PO DAILY [facility] Last Admin: 12/15/19 10:14 Dose: 20 mg Polyethylene Glycol (Miralax (For Daily Use) -) 17 gm PO BID [facility] Last Admin: 12/15/19 21:54 Dose: Not Given Pregabalin (Lyrica -) 150 mg PO DAILY [facility] Last Admin: 12/15/19 10:14 Dose: 150 mg Sertraline HCl (Zoloft -) 50 mg PO DAILY [facility] Last Admin: 12/15/19 10:14 Dose: 50 mg Simethicone (Mylicon -) 80 mg PO Q4H PRN PRN Reason: DYSPEPSIA Last Admin: 12/14/19 18:15 Dose: 80 mg - Objective Vital Signs: Vital Signs Temperature 98.4 F 12/16/19 05:35 Pulse Rate 103 H 12/16/19 05:35 Respiratory Rate 16 12/16/19 05:35 Blood Pressure 133/78 12/16/19 05:35 O2 Sat by Pulse Oximetry (%) 96 12/15/19 21:00 Labs: CBC, BMP 12/16/19 05:20 12/16/19 05:20 Assessment/Plan Problems (1) Anemia Assessment/Plan: -Hg 8.2 -monitor Hg daily -Anemia profile -transfuse for Hg <8.0 -Ferrous Sulfate and Folic Acid Code(s): D64.9 - ANEMIA, UNSPECIFIED (2) Chest pain Assessment/Plan: -Resolved -Tele monitoring -Cardiology consult Noted-probably GERD -Chest CTA neg for PE -trop neg x 3 Code(s): R07.9 - CHEST PAIN, UNSPECIFIED (3) Abdominal pain Assessment/Plan: -GI consult noted ?Ileus--FUA -pantoprazole ivp bid -simethicone prn Code(s): R10.9 - UNSPECIFIED ABDOMINAL PAIN (4) Diabetes Assessment/Plan: -BGM ACHS -ISS -HgA1c -hold metformin Code(s): E11.9 - TYPE 2 DIABETES MELLITUS WITHOUT COMPLICATIONS Qualifiers: Diabetes mellitus type: type 2 Diabetes mellitus senior care insulin use: with rn long term care use Diabetes mellitus complication status: with unspecified complications (5) HLD (hyperlipidemia) Assessment/Plan: -Atorvastatin Code(s): E78.5 - HYPERLIPIDEMIA, UNSPECIFIED (6) HTN (hypertension) Assessment/Plan: -Losartan Code(s): I10 - ESSENTIAL (PRIMARY) HYPERTENSION Qualifiers: Hypertension type: essential hypertension Qualified Code(s): I10 - Essential (primary) hypertension (7) S/P lumbar fusion Assessment/Plan: -POD #2 T5-T11 posterior fusion -Neurosurgery on board -PT -fall precaution -pain control -dvt ppx -Cefazolin Code(s): Z98.1 - ARTHRODESIS STATUS (8) Thoracic aortic aneurysm Assessment/Plan: -Chest CTA shows minimal aneurysmal dilatation of the ascending aorta measuring 4cm without evidence of dissection -vascular consult Code(s): I71.2 - THORACIC AORTIC ANEURYSM, WITHOUT RUPTURE
[2019-12-16] MEDS: PREGABALIN 75 MG CAPSULE PO SCH (10:41)
[2019-12-16] MEDS: FOLIC ACID 1 MG TABLET (FP) PO SCH (10:41)
[2019-12-16] MEDS: CALCIUM 500MG/VIT-D 200 UNITS COMBO TABLET (FP) PO SCH (10:41)
[2019-12-16] MEDS: FERROUS SO4 325 MG TABLET (FP) PO SCH (10:41)
[2019-12-16] MEDS: metoPROLOL SUCCINATE 25 MG TAB.SR.24H (FP) PO SCH (10:42)
[2019-12-16] MEDS: MULTIVITAMINS THER W-MINERALS COMBO TABLET (FP) PO SCH (10:42)
[2019-12-16] MEDS: PANTOPRAZOLE 20 MG TABLET PO SCH (10:42)
[2019-12-16] MEDS: LORATADINE 10 MG TABLET PO SCH (10:42)
[2019-12-16] MEDS: SERTRALINE HCL 50 MG TABLET (FP) PO SCH (10:42)
[2019-12-16] MEDS: LOSARTAN POTASSIUM 50 MG TABLET (FP) PO SCH (10:43)
[2019-12-16] MEDS: oxyCODONE HCL 10 MG SUSTAINED ACTING TABLET PO SCH ×2 (10:44→21:10)
[2019-12-16] MEDS: BRIMONIDINE TARTRATE 0.2% OPHTHALMIC 5 ML BOTTLE OU SCH ×2 (10:46→21:12)
[2019-12-16] MEDS: POLYETHYLENE GLYCOL 3350 119 GM BTL PO SCH ×2 (10:46→21:11)
--- NOTE | 2019-12-16 12:30 | PN ---
Progress Note (short form) - Note Progress Note: No CP or SOB. Still with some abd discomfort. No acute events overnight. Intake & Output 12/13/19 12/14/19 12/15/19 12/16/19 23:59 23:59 23:59 23:59 Intake Total 2955 2150 850 Output Total 2810 2880 1835 770 Balance 145 -2880 315 80 Last Vital Signs Temp Pulse Resp BP Pulse Ox 98.4 F 103 H 16 133/78 96 12/16/19 05:35 12/16/19 05:35 12/16/19 05:35 12/16/19 05:35 12/15/19 21:00 Active Medications Al Hydroxide/Mg Hydroxide (Mylanta Oral Suspension -) 30 ml PO Q6H PRN PRN Reason: DYSPEPSIA Last Admin: 12/16/19 00:09 Dose: 30 ml Atorvastatin Calcium (Lipitor -) 20 mg PO [facility] Last Admin: 12/15/19 21:41 Dose: 20 mg Baclofen (Lioresal -) 10 mg PO TID [facility] Last Admin: 12/16/19 06:21 Dose: 10 mg Bisacodyl (Dulcolax Suppository -) 10 mg RC DAILY PRN PRN Reason: CONSTIPATION Brimonidine Tartrate (Alphagan 0.2% -) 1 drop OU BID [facility] Last Admin: 12/16/19 10:46 Dose: 1 drop Calcium Carbonate/Cholecalciferol (Os-Wilbur 500+D -) 2 tab PO DAILY [facility] Last Admin: 12/16/19 10:41 Dose: 2 tab Diphenhydramine HCl (Benadryl -) 25 mg PO Q6H PRN PRN Reason: FOR ITCHING Last Admin: 12/16/19 00:40 Dose: 25 mg Diphenhydramine HCl (Benadryl Injection -) 25 mg IVPUSH ONCE PRN PRN Reason: FOR ITCHING Last Admin: 12/12/19 23:01 Dose: 25 mg Docusate Sodium (Colace -) 100 mg PO TID [facility] Last Admin: 12/16/19 06:21 Dose: 100 mg Ferrous Sulfate (Feosol -) 325 mg PO DAILY [facility] Last Admin: 12/16/19 10:41 Dose: 325 mg Folic Acid (Folic Acid -) 1 mg PO DAILY [facility] Last Admin: 12/16/19 10:41 Dose: 1 mg Heparin Sodium (Porcine) (Heparin -) 5,000 unit SQ Q8H [facility] Last Admin: 12/16/19 06:21 Dose: 5,000 unit Cefazolin Sodium 1 gm/ (Dextrose) 50 mls @ 100 mls/hr IVPB Q8H [facility] Last Admin: 12/16/19 05:16 Dose: 100 mls/hr Potassium Chloride/Dextrose/Sod Cl (D5-1/2ns+10 Meq Kcl -) 10 meq in 1,000 mls @ 42 mls/hr IV ASDIR [facility] Last Admin: 12/15/19 18:39 Dose: 42 mls/hr Insulin Aspart (Novolog Vial Sliding Scale -) 1 vial SQ ACHS [facility]; Protocol Last Admin: 12/16/19 06:23 Dose: Not Given Latanoprost (Xalatan 0.005% Eye Drops -) 1 drop OD HS [facility] Last Admin: 12/15/19 21:54 Dose: 1 drop Loratadine (Claritin -) 10 mg PO DAILY [facility] Last Admin: 12/16/19 10:42 Dose: 10 mg Losartan Potassium (Cozaar -) 100 mg PO DAILY [facility] Last Admin: 12/16/19 10:43 Dose: 100 mg Metoprolol Succinate (Toprol Xl -) 25 mg PO DAILY [facility] Last Admin: 12/16/19 10:42 Dose: 25 mg Naloxone HCl (Narcan -) 0.4 mg IVPUSH ONCE PRN PRN Reason: Sedation Ondansetron HCl (Zofran Injection) 4 mg IVPUSH Q6H PRN PRN Reason: NAUSEA Last Admin: 12/14/19 01:36 Dose: 4 mg Oxycodone HCl (Oxycontin -) 10 mg PO BID [facility] Last Admin: 12/16/19 10:44 Dose: 10 mg Oxycodone HCl (Roxicodone -) 5 mg PO Q6H PRN PRN Reason: PAIN LEVEL 1-5 Last Admin: 12/16/19 06:49 Dose: 5 mg Pantoprazole Sodium (Protonix Iv) 40 mg IVPUSH BID [facility] Polyethylene Glycol (Miralax (For Daily Use) -) 17 gm PO BID [facility] Last Admin: 12/16/19 10:46 Dose: 17 gm Pregabalin (Lyrica -) 150 mg PO DAILY [facility] Last Admin: 12/16/19 10:41 Dose: 150 mg Sertraline HCl (Zoloft -) 50 mg PO DAILY [facility] Last Admin: 12/16/19 10:42 Dose: 50 mg Simethicone (Mylicon -) 80 mg PO Q4H PRN PRN Reason: DYSPEPSIA Last Admin: 12/14/19 18:15 Dose: 80 mg Constitutional: Yes: NAD Eyes: Yes: WNL HENT: Yes: WNL Neck: Yes: WNL Cardiovascular: Yes: Regular Rate and Rhythm, S1, S2 Respiratory: Yes: Diminished at the bases Gastrointestinal: Yes: tender, (+) Soft, (+) BS Extremities: Yes: WNL Edema: No Labs: Laboratory Results - last 24 hr 12/12/19 12/15/19 12/15/19 06:18 16:00 17:18 WBC RBC Hgb Hct MCV MCH MCHC RDW Plt Count MPV Sodium 138 Potassium 3.6 Chloride 102 Carbon Dioxide 30 Anion Gap 6 L BUN 10.0 Creatinine 0.7 Est GFR (CKD-EPI)AfAm 111.60 Est GFR (CKD-EPI)NonAf 96.29 POC Glucometer 142 Random Glucose 158 H Calcium 8.5 Magnesium 1.9 Total Bilirubin 0.9 AST 39 H ALT 20 Alkaline Phosphatase 75 Total Protein 6.9 Albumin 3.2 L Blood Type O POSITIVE Antibody Screen Negative Crossmatch See Detail 12/15/19 12/16/19 12/16/19 21:52 05:20 05:20 WBC 6.5 RBC 2.38 L Hgb 8.2 L Hct 23.2 L MCV 97.7 H MCH 34.6 H MCHC 35.4 RDW 15.3 Plt Count 126 L MPV 8.9 D Sodium 138 Potassium 3.6 Chloride 104 Carbon Dioxide 27 Anion Gap 6 L BUN 12.5 Creatinine 0.6 Est GFR (CKD-EPI)AfAm 118.90 Est GFR (CKD-EPI)NonAf 102.59 POC Glucometer 149 Random Glucose 160 H Calcium 7.9 L Magnesium 1.9 Total Bilirubin 0.8 AST 22 ALT 15 Alkaline Phosphatase 55 Total Protein 5.3 L Albumin 2.6 L Blood Type Antibody Screen Crossmatch 12/16/19 12/16/19 06:22 11:57 WBC RBC Hgb Hct MCV MCH MCHC RDW Plt Count MPV Sodium Potassium Chloride Carbon Dioxide Anion Gap BUN Creatinine Est GFR (CKD-EPI)AfAm Est GFR (CKD-EPI)NonAf POC Glucometer 164 191 Random Glucose Calcium Magnesium Total Bilirubin AST ALT Alkaline Phosphatase Total Protein Albumin Blood Type Antibody Screen Crossmatch Problem List - Problems (1) S/P spinal surgery Code(s): Z98.890 - OTHER SPECIFIED POSTPROCEDURAL STATES (2) Thoracic radiculopathy due to degenerative joint disease of spine Code(s): M47.24 - OTHER SPONDYLOSIS WITH RADICULOPATHY, THORACIC REGION (3) GERD (gastroesophageal reflux disease) Code(s): K21.9 - GASTRO-ESOPHAGEAL REFLUX DISEASE WITHOUT ESOPHAGITIS Qualifiers: Esophagitis presence: without esophagitis Qualified Code(s): K21.9 - Gastro -esophageal reflux disease without esophagitis (4) HLD (hyperlipidemia) Code(s): E78.5 - HYPERLIPIDEMIA, UNSPECIFIED (5) HTN (hypertension) Code(s): I10 - ESSENTIAL (PRIMARY) HYPERTENSION Qualifiers: Hypertension type: essential hypertension Qualified Code(s): I10 - Essential (primary) hypertension (6) Thoracic aortic aneurysm Code(s): I71.2 - THORACIC AORTIC ANEURYSM, WITHOUT RUPTURE (7) Thoracic spinal stenosis Code(s): M48.04 - SPINAL STENOSIS, THORACIC REGION (8) Chest pain Code(s): R07.9 - CHEST PAIN, UNSPECIFIED (9) Dyspnea Code(s): R06.00 - DYSPNEA, UNSPECIFIED (10) Fever Code(s): R50.9 - FEVER, UNSPECIFIED (11) Anemia Code(s): D64.9 - ANEMIA, UNSPECIFIED Assessment/Plan IMP CHEST PAIN LIKELY SECONDARY TO RECENT SURGERY S/P T5-T11 DECOMPRESSION AND POSTERIOR FUSION NIDDM HTN HLD LEFT EYE GLAUCOMA H/O THORACIC AORTIC ANEURYSM FEVER ANEMIA PLAN ANALGESICS INCENTIVE SPIROMETER NASAL O2 NEEDED DVT PROPHYLAXIS ABX PER ID MONITOR LYTES,H+H NORMAL TRANSFUSION THRESHOLD Dr Orozco
[2019-12-16] MEDS ORDERED: PT OWN MED DRAWER 7, Y5N ONE ×2 (13:44→20:44)
[2019-12-16] MEDS: PANTOPRAZOLE SODIUM 40 MG VIAL IVPUSH SCH ×2 (13:49→21:11)
[2019-12-16] MEDS: D5-1/2NS+10 MEQ KCL - 10 MEQ/1,000 ML INFUS.BAG IV SCH (17:15)
[2019-12-16] MEDS: ATORVASTATIN CA 20 MG TABLET (FP) PO SCH (21:10)
[2019-12-16] MEDS: LATANOPROST 0.005% OPHTH SOLN 2.5ML BOTTLE OD SCH (21:12)
[2019-12-17] MEDS ORDERED: DEXTROSE 5%-WATER - 50 ML IVPB ONE ×3 (03:14→19:55)
[2019-12-17] MEDS ORDERED: ceFAZolin SODIUM 1 GM VIAL ONE ×3 (03:14→19:55)
[2019-12-17] MEDS: oxyCODONE HCL 5 MG TABLET PO PRN ×2 (03:17→10:18)
[2019-12-17] MEDS: CEFAZOLIN 1 GM in DEXTROSE 5%-WATER - 50 ML IVPB SCH ×3 (03:30→19:55)
[2019-12-17] MEDS ORDERED: PT OWN MED DRAWER 7, Y5N ONE (06:29)
[2019-12-17] MEDS: BACLOFEN 10 MG TABLET (FP) PO SCH ×3 (06:32→21:04)
[2019-12-17] MEDS: INSULIN SLIDING SCALE (NOVOLOG) 1 VIAL SQ SCH ×4 (06:32→21:04)
[2019-12-17] MEDS: HEPARIN NA (PORCINE) 5,000 UNITS/ML 1ML VIAL SQ SCH ×3 (06:32→21:26)
[2019-12-17] MEDS: DOCUSATE SODIUM 100 MG CAPSULE (FP) PO SCH ×3 (06:32→21:04)
--- NOTE | 2019-12-17 07:59 | PN.GI ---
GI Progress Note Subjective: ABDOMINAL PAIN - NO OTHER NEW COMPLAINTS NO BM RN AT THE BEDSIDE - Objective Vital Signs: Vital Signs Temperature 99.0 F 12/17/19 06:00 Pulse Rate 102 H 12/17/19 06:00 Respiratory Rate 18 12/17/19 06:00 Blood Pressure 148/92 12/17/19 06:00 O2 Sat by Pulse Oximetry (%) 98 12/16/19 20:00 Constitutional: Well Nourished, No Distress Eyes: Yes: WNL Neck: Yes: WNL Cardiovascular: Yes: WNL Respiratory: Yes: WNL Gastrointestinal Inspection: Yes: Other (TENDER NO REBOUND OR GUARDING ; BS NML ; TYMPANITIC) ...Auscultate: Yes: Normoactive Bowel Sounds ...Palpate: Yes: Tenderness Extremities: Yes: WNL Edema: No Labs: CBC, BMP 12/16/19 05:20 12/16/19 05:20 Problem List - Problems (1) Abdominal pain Assessment/Plan: AXR REVIEWED - SMALL AND LARGE BOWEL DISTENSION - NPO / IVF'S - NGT INTERMITTENT WALL SUCTION - DULCOLAX SUPPOSITORY - SURGERY F/U REPEAT IMAGING IN THE AM REPEAT CBC , CMET IN THE AM DISCUSSED WITH RN AVOID NARCOTICS WHICH ARE WORSENING HIS SYMPTOMS Code(s): R10.9 - UNSPECIFIED ABDOMINAL PAIN (2) Anemia Code(s): D64.9 - ANEMIA, UNSPECIFIED
[2019-12-17] MEDS: LOSARTAN POTASSIUM 50 MG TABLET (FP) PO SCH (09:03)
[2019-12-17] MEDS: PREGABALIN 75 MG CAPSULE PO SCH (09:04)
[2019-12-17] MEDS: SERTRALINE HCL 50 MG TABLET (FP) PO SCH (09:04)
[2019-12-17] MEDS: FERROUS SO4 325 MG TABLET (FP) PO SCH (09:04)
[2019-12-17] MEDS: oxyCODONE HCL 10 MG SUSTAINED ACTING TABLET PO SCH ×2 (09:04→21:05)
[2019-12-17] MEDS: LORATADINE 10 MG TABLET PO SCH (09:04)
[2019-12-17] MEDS: CALCIUM 500MG/VIT-D 200 UNITS COMBO TABLET (FP) PO SCH (09:05)
[2019-12-17] MEDS: PANTOPRAZOLE SODIUM 40 MG VIAL IVPUSH SCH ×2 (09:05→21:27)
[2019-12-17] MEDS: metoPROLOL SUCCINATE 25 MG TAB.SR.24H (FP) PO SCH ×2 (09:05→10:18)
[2019-12-17] MEDS: FOLIC ACID 1 MG TABLET (FP) PO SCH (09:05)
[2019-12-17] MEDS: POLYETHYLENE GLYCOL 3350 119 GM BTL PO SCH ×2 (09:06→21:04)
[2019-12-17] MEDS: BRIMONIDINE TARTRATE 0.2% OPHTHALMIC 5 ML BOTTLE OU SCH ×2 (09:06→21:26)
--- NOTE | 2019-12-17 09:58 | PN ---
Progress Note, Physician - Current Medication List Current Medications: Active Medications Al Hydroxide/Mg Hydroxide (Mylanta Oral Suspension -) 30 ml PO Q6H PRN PRN Reason: DYSPEPSIA Last Admin: 12/16/19 00:09 Dose: 30 ml Atorvastatin Calcium (Lipitor -) 20 mg PO HS [facility] Last Admin: 12/16/19 21:10 Dose: 20 mg Baclofen (Lioresal -) 10 mg PO TID [facility] Last Admin: 12/17/19 06:32 Dose: 10 mg Bisacodyl (Dulcolax Suppository -) 10 mg RC DAILY PRN PRN Reason: CONSTIPATION Brimonidine Tartrate (Alphagan 0.2% -) 1 drop OU BID [facility] Last Admin: 12/17/19 09:06 Dose: 1 drop Calcium Carbonate/Cholecalciferol (Os-Wilbur 500+D -) 2 tab PO DAILY [facility] Last Admin: 12/17/19 09:05 Dose: 2 tab Diphenhydramine HCl (Benadryl -) 25 mg PO Q6H PRN PRN Reason: FOR ITCHING Last Admin: 12/16/19 00:40 Dose: 25 mg Diphenhydramine HCl (Benadryl Injection -) 25 mg IVPUSH ONCE PRN PRN Reason: FOR ITCHING Last Admin: 12/12/19 23:01 Dose: 25 mg Docusate Sodium (Colace -) 100 mg PO TID [facility] Last Admin: 12/17/19 06:32 Dose: 100 mg Ferrous Sulfate (Feosol -) 325 mg PO DAILY [facility] Last Admin: 12/17/19 09:04 Dose: 325 mg Folic Acid (Folic Acid -) 1 mg PO DAILY [facility] Last Admin: 12/17/19 09:05 Dose: 1 mg Heparin Sodium (Porcine) (Heparin -) 5,000 unit SQ Q8H [facility] Last Admin: 12/17/19 06:32 Dose: 5,000 unit Cefazolin Sodium 1 gm/ (Dextrose) 50 mls @ 100 mls/hr IVPB Q8H [facility] Last Admin: 12/17/19 03:30 Dose: 100 mls/hr Potassium Chloride/Dextrose/Sod Cl (D5-1/2ns+10 Meq Kcl -) 10 meq in 1,000 mls @ 42 mls/hr IV ASDIR [facility] Last Admin: 12/16/19 17:15 Dose: 42 mls/hr Insulin Aspart (Novolog Vial Sliding Scale -) 1 vial SQ ACHS [facility]; Protocol Last Admin: 12/17/19 06:32 Dose: 2 unit Latanoprost (Xalatan 0.005% Eye Drops -) 1 drop OD HS [facility] Last Admin: 12/16/19 21:12 Dose: 1 drop Loratadine (Claritin -) 10 mg PO DAILY [facility] Last Admin: 12/17/19 09:04 Dose: 10 mg Losartan Potassium (Cozaar -) 100 mg PO DAILY [facility] Last Admin: 12/17/19 09:03 Dose: 100 mg Metoprolol Succinate (Toprol Xl -) 25 mg PO DAILY [facility] Last Admin: 12/17/19 09:05 Dose: 25 mg Naloxone HCl (Narcan -) 0.4 mg IVPUSH ONCE PRN PRN Reason: Sedation Ondansetron HCl (Zofran Injection) 4 mg IVPUSH Q6H PRN PRN Reason: NAUSEA Last Admin: 12/14/19 01:36 Dose: 4 mg Oxycodone HCl (Oxycontin -) 10 mg PO BID [facility] Last Admin: 12/17/19 09:04 Dose: 10 mg Oxycodone HCl (Roxicodone -) 5 mg PO Q6H PRN PRN Reason: PAIN LEVEL 1-5 Last Admin: 12/17/19 03:17 Dose: 5 mg Pantoprazole Sodium (Protonix Iv) 40 mg IVPUSH BID [facility] Last Admin: 12/17/19 09:05 Dose: 40 mg Polyethylene Glycol (Miralax (For Daily Use) -) 17 gm PO BID [facility] Last Admin: 12/17/19 09:06 Dose: 17 gm Pregabalin (Lyrica -) 150 mg PO DAILY [facility] Last Admin: 12/17/19 09:04 Dose: 150 mg Sertraline HCl (Zoloft -) 50 mg PO DAILY [facility] Last Admin: 12/17/19 09:04 Dose: 50 mg Simethicone (Mylicon -) 80 mg PO Q4H PRN PRN Reason: DYSPEPSIA Last Admin: 12/14/19 18:15 Dose: 80 mg - Objective Vital Signs: Vital Signs Temperature 99.0 F 12/17/19 06:00 Pulse Rate 102 H 12/17/19 06:00 Respiratory Rate 18 12/17/19 06:00 Blood Pressure 148/92 12/17/19 06:00 O2 Sat by Pulse Oximetry (%) 98 12/16/19 20:00 Cardiovascular: Yes: S1, S2, Other (cw tenderness over xyphoid process) Respiratory: Yes: Regular, CTA Bilaterally Gastrointestinal: Yes: Normal Bowel Sounds, Soft Labs: CBC, BMP 12/16/19 05:20 12/16/19 05:20 Assessment/Plan Problems (1) Anemia Assessment/Plan: -Hg 8.2 -monitor Hg daily -Anemia profile -transfuse for Hg <8.0 -Ferrous Sulfate and Folic Acid Code(s): D64.9 - ANEMIA, UNSPECIFIED (2) Chest pain Assessment/Plan: -Atypical probably muscular -Tele monitoring -Cardiology consult Noted-probably GERD -Chest CTA neg for PE -trop neg x 3-Repeat ce and ekg Code(s): R07.9 - CHEST PAIN, UNSPECIFIED (3) Abdominal pain-Ileus Assessment/Plan: -GI consult noted --Ileus--FUA -pantoprazole ivp bid -simethicone prn -OOB --clear liquids Code(s): R10.9 - UNSPECIFIED ABDOMINAL PAIN (4) Diabetes Assessment/Plan: -BGM ACHS -ISS -HgA1c -hold metformin Code(s): E11.9 - TYPE 2 DIABETES MELLITUS WITHOUT COMPLICATIONS Qualifiers: Diabetes mellitus type: type 2 Diabetes mellitus manager terminal insulin use: with group home use Diabetes mellitus complication status: with unspecified complications (5) HLD (hyperlipidemia) Assessment/Plan: -Atorvastatin Code(s): E78.5 - HYPERLIPIDEMIA, UNSPECIFIED (6) HTN (hypertension) Assessment/Plan: -Losartan -Metoprolol to 50 Code(s): I10 - ESSENTIAL (PRIMARY) HYPERTENSION Qualifiers: Hypertension type: essential hypertension Qualified Code(s): I10 - Essential (primary) hypertension (7) S/P lumbar fusion Assessment/Plan: -POD #2 T5-T11 posterior fusion -Neurosurgery on board -PT -fall precaution -pain control -dvt ppx -Cefazolin Code(s): Z98.1 - ARTHRODESIS STATUS (8) Thoracic aortic aneurysm Assessment/Plan: -Chest CTA shows minimal aneurysmal dilatation of the ascending aorta measuring 4cm without evidence of dissection -vascular consult Code(s): I71.2 - THORACIC AORTIC ANEURYSM, WITHOUT RUPTURE
[2019-12-17 10:28] LABS: BASO % 0.3 % (0-2.0); EOS % 2.2 % (0-4.5); HEMATOCRIT 24.9 % (35.4-49); HEMOGLOBIN 8.6 GM/dL (11.7-16.9); LYMPH % 24.8 % (8-40); MCHC 34.7 g/dl (32.0-35.9); MEAN CELL VOLUME 97.9 fl (80-96); MEAN PLT VOLUME 7.7 fl (7.5-11.1); MONO % 10.5 % (3.8-10.2); NEUT % 62.2 % (42.8-82.8); PLATELET COUNT 171 K/MM3 (134-434); RBC 2.54 M/mm3 (4.00-5.60); WHITE BLOOD COUNT 5.7 K/mm3 (4.0-10.0)
--- NOTE | 2019-12-17 12:10 | PN ---
Progress Note (short form) - Note Progress Note: No CP or SOB. Still with some chest/abd discomfort. No acute events overnight. (+) bloody drainage in the BILL Intake & Output 12/14/19 12/15/19 12/16/19 12/17/19 23:59 23:59 23:59 23:59 Intake Total 2150 1068 386 Output Total 2880 1835 1425 40 Balance -2880 315 -357 346 Last Vital Signs Temp Pulse Resp BP Pulse Ox 99.0 F 102 H 18 148/92 98 12/17/19 06:00 12/17/19 06:00 12/17/19 06:00 12/17/19 06:00 12/16/19 20:00 Active Medications Al Hydroxide/Mg Hydroxide (Mylanta Oral Suspension -) 30 ml PO Q6H PRN PRN Reason: DYSPEPSIA Last Admin: 12/16/19 00:09 Dose: 30 ml Atorvastatin Calcium (Lipitor -) 20 mg PO HS [facility] Last Admin: 12/16/19 21:10 Dose: 20 mg Baclofen (Lioresal -) 10 mg PO TID [facility] Last Admin: 12/17/19 06:32 Dose: 10 mg Bisacodyl (Dulcolax Suppository -) 10 mg RC DAILY PRN PRN Reason: CONSTIPATION Brimonidine Tartrate (Alphagan 0.2% -) 1 drop OU BID [facility] Last Admin: 12/17/19 09:06 Dose: 1 drop Calcium Carbonate/Cholecalciferol (Os-Wilbur 500+D -) 2 tab PO DAILY [facility] Last Admin: 12/17/19 09:05 Dose: 2 tab Diphenhydramine HCl (Benadryl -) 25 mg PO Q6H PRN PRN Reason: FOR ITCHING Last Admin: 12/16/19 00:40 Dose: 25 mg Diphenhydramine HCl (Benadryl Injection -) 25 mg IVPUSH ONCE PRN PRN Reason: FOR ITCHING Last Admin: 12/12/19 23:01 Dose: 25 mg Docusate Sodium (Colace -) 100 mg PO TID [facility] Last Admin: 12/17/19 06:32 Dose: 100 mg Ferrous Sulfate (Feosol -) 325 mg PO DAILY [facility] Last Admin: 12/17/19 09:04 Dose: 325 mg Folic Acid (Folic Acid -) 1 mg PO DAILY [facility] Last Admin: 12/17/19 09:05 Dose: 1 mg Heparin Sodium (Porcine) (Heparin -) 5,000 unit SQ Q8H [facility] Last Admin: 12/17/19 06:32 Dose: 5,000 unit Cefazolin Sodium 1 gm/ (Dextrose) 50 mls @ 100 mls/hr IVPB Q8H [facility] Last Admin: 12/17/19 03:30 Dose: 100 mls/hr Potassium Chloride/Dextrose/Sod Cl (D5-1/2ns+10 Meq Kcl -) 10 meq in 1,000 mls @ 42 mls/hr IV ASDIR [facility] Last Admin: 12/16/19 17:15 Dose: 42 mls/hr Insulin Aspart (Novolog Vial Sliding Scale -) 1 vial SQ ACHS [facility]; Protocol Last Admin: 12/17/19 06:32 Dose: 2 unit Latanoprost (Xalatan 0.005% Eye Drops -) 1 drop OD HS [facility] Last Admin: 12/16/19 21:12 Dose: 1 drop Loratadine (Claritin -) 10 mg PO DAILY [facility] Last Admin: 12/17/19 09:04 Dose: 10 mg Losartan Potassium (Cozaar -) 100 mg PO DAILY [facility] Last Admin: 12/17/19 09:03 Dose: 100 mg Metoprolol Succinate (Toprol Xl -) 50 mg PO DAILY [facility] Last Admin: 12/17/19 10:18 Dose: 25 mg Naloxone HCl (Narcan -) 0.4 mg IVPUSH ONCE PRN PRN Reason: Sedation Ondansetron HCl (Zofran Injection) 4 mg IVPUSH Q6H PRN PRN Reason: NAUSEA Last Admin: 12/14/19 01:36 Dose: 4 mg Oxycodone HCl (Oxycontin -) 10 mg PO BID [facility] Last Admin: 12/17/19 09:04 Dose: 10 mg Oxycodone HCl (Roxicodone -) 5 mg PO Q6H PRN PRN Reason: PAIN LEVEL 1-5 Last Admin: 12/17/19 10:18 Dose: 5 mg Pantoprazole Sodium (Protonix Iv) 40 mg IVPUSH BID [facility] Last Admin: 12/17/19 09:05 Dose: 40 mg Polyethylene Glycol (Miralax (For Daily Use) -) 17 gm PO BID [facility] Last Admin: 12/17/19 09:06 Dose: 17 gm Pregabalin (Lyrica -) 150 mg PO DAILY [facility] Last Admin: 12/17/19 09:04 Dose: 150 mg Sertraline HCl (Zoloft -) 50 mg PO DAILY [facility] Last Admin: 12/17/19 09:04 Dose: 50 mg Simethicone (Mylicon -) 80 mg PO Q4H PRN PRN Reason: DYSPEPSIA Last Admin: 12/14/19 18:15 Dose: 80 mg Constitutional: Yes: NAD Eyes: Yes: WNL HENT: Yes: WNL Neck: Yes: WNL Cardiovascular: Yes: Regular Rate and Rhythm, S1, S2 Respiratory: Yes: Diminished at the bases Gastrointestinal: Yes: tender, (+) Soft, (+) BS Extremities: Yes: WNL Edema: No Labs: Laboratory Results - last 24 hr 12/12/19 12/16/19 12/16/19 06:18 05:20 17:10 WBC RBC Hgb Hct MCV MCH MCHC RDW Plt Count MPV Absolute Neuts (auto) Neutrophils % Lymphocytes % Monocytes % Eosinophils % Basophils % Nucleated RBC % Sodium 138 Potassium 3.6 Chloride 104 Carbon Dioxide 27 Anion Gap 6 L BUN 12.5 Creatinine 0.6 Est GFR (CKD-EPI)AfAm 118.90 Est GFR (CKD-EPI)NonAf 102.59 POC Glucometer 214 Random Glucose 160 H Calcium 7.9 L Magnesium 1.9 Total Bilirubin 0.8 AST 22 ALT 15 Alkaline Phosphatase 55 Creatine Kinase 199 Creatine Kinase Index 1.0 CK-MB (CK-2) 2.0 Troponin I < 0.02 Total Protein 5.3 L Albumin 2.6 L Blood Type O POSITIVE Antibody Screen Negative Crossmatch See Detail 12/16/19 12/17/19 12/17/19 20:35 06:05 10:03 WBC 5.7 RBC 2.54 L Hgb 8.6 L Hct 24.9 L MCV 97.9 H MCH 34.0 H MCHC 34.7 RDW 15.0 Plt Count 171 D MPV 7.7 D Absolute Neuts (auto) 3.5 Neutrophils % 62.2 Lymphocytes % 24.8 Monocytes % 10.5 H Eosinophils % 2.2 D Basophils % 0.3 Nucleated RBC % 0 Sodium Potassium Chloride Carbon Dioxide Anion Gap BUN Creatinine Est GFR (CKD-EPI)AfAm Est GFR (CKD-EPI)NonAf POC Glucometer 164 208 Random Glucose Calcium Magnesium Total Bilirubin AST ALT Alkaline Phosphatase Creatine Kinase Creatine Kinase Index CK-MB (CK-2) Troponin I Total Protein Albumin Blood Type Antibody Screen Crossmatch 12/17/19 10:03 WBC RBC Hgb Hct MCV MCH MCHC RDW Plt Count MPV Absolute Neuts (auto) Neutrophils % Lymphocytes % Monocytes % Eosinophils % Basophils % Nucleated RBC % Sodium Potassium Chloride Carbon Dioxide Anion Gap BUN Creatinine Est GFR (CKD-EPI)AfAm Est GFR (CKD-EPI)NonAf POC Glucometer Random Glucose Calcium Magnesium Total Bilirubin AST ALT Alkaline Phosphatase Creatine Kinase 96 Creatine Kinase Index CK-MB (CK-2) Troponin I < 0.02 Total Protein Albumin Blood Type Antibody Screen Crossmatch Problem List - Problems (1) S/P spinal surgery Code(s): Z98.890 - OTHER SPECIFIED POSTPROCEDURAL STATES (2) Thoracic radiculopathy due to degenerative joint disease of spine Code(s): M47.24 - OTHER SPONDYLOSIS WITH RADICULOPATHY, THORACIC REGION (3) GERD (gastroesophageal reflux disease) Code(s): K21.9 - GASTRO-ESOPHAGEAL REFLUX DISEASE WITHOUT ESOPHAGITIS Qualifiers: Esophagitis presence: without esophagitis Qualified Code(s): K21.9 - Gastro -esophageal reflux disease without esophagitis (4) HLD (hyperlipidemia) Code(s): E78.5 - HYPERLIPIDEMIA, UNSPECIFIED (5) HTN (hypertension) Code(s): I10 - ESSENTIAL (PRIMARY) HYPERTENSION Qualifiers: Hypertension type: essential hypertension Qualified Code(s): I10 - Essential (primary) hypertension (6) Thoracic aortic aneurysm Code(s): I71.2 - THORACIC AORTIC ANEURYSM, WITHOUT RUPTURE (7) Thoracic spinal stenosis Code(s): M48.04 - SPINAL STENOSIS, THORACIC REGION (8) Chest pain Code(s): R07.9 - CHEST PAIN, UNSPECIFIED (9) Dyspnea Code(s): R06.00 - DYSPNEA, UNSPECIFIED (10) Fever Code(s): R50.9 - FEVER, UNSPECIFIED (11) Anemia Code(s): D64.9 - ANEMIA, UNSPECIFIED Assessment/Plan IMP CHEST PAIN LIKELY SECONDARY TO RECENT SURGERY S/P T5-T11 DECOMPRESSION AND POSTERIOR FUSION NIDDM HTN HLD LEFT EYE GLAUCOMA H/O THORACIC AORTIC ANEURYSM FEVER ANEMIA PLAN ANALGESICS INCENTIVE SPIROMETER NASAL O2 NEEDED DVT PROPHYLAXIS ABX PER ID MONITOR LYTES,H+H NORMAL TRANSFUSION THRESHOLD Dr Orozco
[2019-12-17] MEDS: MAG HYDROX/AL HYDROX/SIMETH 30 ML UNIT-DOSE CUP PO PRN (13:49)
[2019-12-17] MEDS: SIMETHICONE 80 MG TAB.CHEW (FP) PO PRN (13:49)
[2019-12-17] MEDS: BISACODYL 10 MG SUPP.RECT RC PRN (13:56)
[2019-12-17] MEDS ORDERED: BISACODYL 10 MG SUPP.RECT RC ONE (15:22)
[2019-12-17] MEDS: D5-1/2NS+10 MEQ KCL - 10 MEQ/1,000 ML INFUS.BAG IV SCH (16:54)
[2019-12-17] MEDS: ATORVASTATIN CA 20 MG TABLET (FP) PO SCH (21:04)
[2019-12-17] MEDS: ACETAMINOPHEN 1000 MG/100 ML VIAL (NON FORMULARY) IVPB PRN (21:26)
[2019-12-17] MEDS: LATANOPROST 0.005% OPHTH SOLN 2.5ML BOTTLE OD SCH (21:27)
[2019-12-18] MEDS: ACETAMINOPHEN 1000 MG/100 ML VIAL (NON FORMULARY) IVPB PRN ×2 (03:35→13:03)
[2019-12-18] MEDS: DOCUSATE SODIUM 100 MG CAPSULE (FP) PO SCH ×3 (05:02→21:38)
[2019-12-18] MEDS: BACLOFEN 10 MG TABLET (FP) PO SCH ×3 (05:02→21:38)
[2019-12-18] MEDS ORDERED: DEXTROSE 5%-WATER - 50 ML IVPB ONE (05:03)
[2019-12-18] MEDS ORDERED: ceFAZolin SODIUM 1 GM VIAL ONE (05:03)
[2019-12-18] MEDS: CEFAZOLIN 1 GM in DEXTROSE 5%-WATER - 50 ML IVPB SCH (05:13)
[2019-12-18] MEDS ORDERED: oxyCODONE HCL 5 MG TABLET PO ONE (05:37)
[2019-12-18] MEDS ORDERED: MELATONIN 5 MG TABLETS PO ONE (05:38)
--- NOTE | 2019-12-18 05:47 | HOSP ---
Subjective - Review of Symptoms Events since last encounter: Hospitalist Encounter Notified via [employer] that the patient is requesting to speak with the covering provider 2/2 abdominal pain. per the RN patient removed his NGT and refused a replacement. Arrived to bedside, patient is AAOx3, reports epigastric and RUQ pain. PE performed see EMR Gastrointestinal: Yes: Abdominal Pain Physical Examination Vital Signs: Vital Signs Temperature 98.9 F 12/18/19 01:45 Pulse Rate 93 H 12/18/19 01:45 Respiratory Rate 18 12/18/19 01:45 Blood Pressure 150/79 12/18/19 01:45 O2 Sat by Pulse Oximetry (%) 94 L 12/17/19 20:25 Constitutional: Yes: Moderate Distress Eyes: Yes: WNL, Conjunctiva Clear, EOM Intact, PERRL HENT: Yes: WNL, Atraumatic, Normocephalic Neck: Yes: WNL, Supple, Trachea Midline, Rigid Cardiovascular: Yes: Regular Rate and Rhythm, S1, S2 Respiratory: Yes: WNL, Regular, CTA Bilaterally Gastrointestinal: Yes: Soft, Hypoactive Bowel Sounds, Tenderness, Tenderness, Epigastrium Renal/: Yes: WNL Edema: No Peripheral Pulses WNL: Yes Neurological: Yes: WNL, Alert, Oriented, Cran Nerves II-XII Intact ...Motor Strength: WNL Psychiatric: Yes: WNL, Alert, Oriented Labs: CBC, BMP 12/17/19 10:03 12/16/19 05:20 Laboratory Results - last 24 hr 12/17/19 12/17/19 12/17/19 06:05 10:03 10:03 WBC 5.7 RBC 2.54 L Hgb 8.6 L Hct 24.9 L MCV 97.9 H MCH 34.0 H MCHC 34.7 RDW 15.0 Plt Count 171 D MPV 7.7 D Absolute Neuts (auto) 3.5 Neutrophils % 62.2 Lymphocytes % 24.8 Monocytes % 10.5 H Eosinophils % 2.2 D Basophils % 0.3 Nucleated RBC % 0 POC Glucometer 208 Creatine Kinase 96 Troponin I < 0.02 12/17/19 12/17/19 17:35 20:34 WBC RBC Hgb Hct MCV MCH MCHC RDW Plt Count MPV Absolute Neuts (auto) Neutrophils % Lymphocytes % Monocytes % Eosinophils % Basophils % Nucleated RBC % POC Glucometer 177 196 Creatine Kinase Troponin I Intake & Output 12/15/19 12/16/19 12/17/19 12/18/19 23:59 23:59 23:59 23:59 Intake Total 2150 1068 386 Output Total 1835 1425 880 Balance [phone] -[phone] Current Medications Generic Name Dose Route Start Last Admin Trade Name Freq PRN Reason Stop Dose Admin Acetaminophen 1,000 mg 12/17/19 20:24 12/18/19 03:35 Ofirmev Injection - IVPB 12/18/19 20:24 1,000 mg Q6H PRN Administration PAIN LEVEL 6-10 Al Hydroxide/Mg Hydroxide 30 ml 12/13/19 09:39 12/17/19 13:49 Mylanta Oral Suspension - PO 30 ml Q6H PRN Administration DYSPEPSIA Atorvastatin Calcium 20 mg 12/12/19 22:00 12/17/19 21:04 Lipitor - PO Not Given HS [facility] Baclofen 10 mg 12/13/19 14:00 12/18/19 05:02 Lioresal - PO Not Given TID [facility] Bisacodyl 10 mg 12/15/19 13:55 12/17/19 13:56 Dulcolax Suppository - RC 10 mg DAILY PRN Administration CONSTIPATION Brimonidine Tartrate 1 drop 12/12/19 22:00 12/17/19 21:26 Alphagan 0.2% - OU 1 drop BID [facility] Administration Calcium Carbonate/Cholecalciferol 2 tab 12/13/19 13:45 12/17/19 09:05 Os-Wilbur 500+D - PO 2 tab DAILY [facility] Administration Diphenhydramine HCl 25 mg 12/12/19 14:16 12/16/19 00:40 Benadryl - PO 25 mg Q6H PRN Administration FOR ITCHING Diphenhydramine HCl 25 mg 12/12/19 14:26 12/12/19 23:01 Benadryl Injection - IVPUSH 25 mg ONCE PRN Administration FOR ITCHING Docusate Sodium 100 mg 12/12/19 22:00 12/18/19 05:02 Colace - PO Not Given TID [facility] Ferrous Sulfate 325 mg 12/13/19 10:00 12/17/19 09:04 Feosol - PO 325 mg DAILY [facility] Administration Folic Acid 1 mg 12/13/19 10:00 12/17/19 09:05 Folic Acid - PO 1 mg DAILY [facility] Administration Heparin Sodium (Porcine) 5,000 unit 12/12/19 22:00 12/17/19 21:26 Heparin - SQ 5,000 unit Q8H [facility] Administration Cefazolin Sodium 1 gm/ 50 mls @ 100 mls/hr 12/12/19 20:30 12/18/19 05:13 Dextrose IVPB 100 mls/hr Q8H [facility] Administration Potassium Chloride/Dextrose/Sod Cl 10 meq in 1,000 mls @ 42 mls/hr 12/15/19 18 :00 12/17/19 16:54 D5-1/2ns+10 Meq Kcl - IV 42 mls/hr ASDIR [facility] Administration Insulin Aspart 1 vial 12/12/19 16:30 12/17/19 21:04 Novolog Vial Sliding Scale - SQ Not Given ACHS [facility] Protocol Latanoprost 1 drop 12/12/19 22:00 12/17/19 21:27 Xalatan 0.005% Eye Drops - OD 1 drop HS [facility] Administration Loratadine 10 mg 12/13/19 10:00 12/17/19 09:04 Claritin - PO 10 mg DAILY [facility] Administration Losartan Potassium 100 mg 12/13/19 10:00 12/17/19 09:03 Cozaar - PO 100 mg DAILY [facility] Administration Melatonin 5 mg 12/18/19 05:38 Melatonin PO 12/18/19 05:39 ONCE ONE Metoprolol Succinate 50 mg 12/17/19 10:00 12/17/19 10:18 Toprol Xl - PO 25 mg DAILY [facility] Administration Naloxone HCl 0.4 mg 12/12/19 14:26 Narcan - IVPUSH ONCE PRN Sedation Ondansetron HCl 4 mg 12/13/19 12:38 12/14/19 01:36 Zofran Injection IVPUSH 4 mg Q6H PRN Administration NAUSEA Oxycodone HCl 10 mg 12/13/19 14:26 12/17/19 21:05 Oxycontin - PO Not Given BID [facility] Oxycodone HCl 5 mg 12/14/19 11:37 12/17/19 10:18 Roxicodone - PO 5 mg Q6H PRN Administration PAIN LEVEL 1-5 Oxycodone HCl 5 mg 12/18/19 05:37 Roxicodone - PO 02/17/20 05:38 ONCE ONE Pantoprazole Sodium 40 mg 12/16/19 10:45 12/17/19 21:27 Protonix Iv IVPUSH 40 mg BID [facility] Administration Polyethylene Glycol 17 gm 12/15/19 22:00 12/17/19 21:04 Miralax (For Daily Use) - PO Not Given BID [facility] Pregabalin 150 mg 12/13/19 10:00 12/17/19 09:04 Lyrica - PO 150 mg DAILY [facility] Administration Sertraline HCl 50 mg 12/13/19 10:00 12/17/19 09:04 Zoloft - PO 50 mg DAILY [facility] Administration Simethicone 80 mg 12/13/19 09:39 12/17/19 13:49 Mylicon - PO 80 mg Q4H PRN Administration DYSPEPSIA Hospitalist Encounter Assessment: This is a 59 y/o man s/p T5-T11 costovertebral/tranpedicular decompression with osteotomies and arthrodesis. T5-T11 posterior fusion with pedicle screws . Post op developed vague upper abdominal, lower rib pain. Abd Xray- Ileus Plan: Oxycodone x 1 now Melatonin x 1 now NPO Continue with current regimen
[2019-12-18] MEDS: INSULIN SLIDING SCALE (NOVOLOG) 1 VIAL SQ SCH ×4 (06:03→21:37)
[2019-12-18] MEDS: HEPARIN NA (PORCINE) 5,000 UNITS/ML 1ML VIAL SQ SCH ×3 (06:03→21:46)
[2019-12-18 06:53] LABS: BASO % 0.5 % (0-2.0); EOS % 2.2 % (0-4.5); HEMATOCRIT 26.2 % (35.4-49); LYMPH % 23.1 % (8-40); MCH 33.7 pg (25.7-33.7); MCHC 34.5 g/dl (32.0-35.9); MEAN CELL VOLUME 97.9 fl (80-96); MEAN PLT VOLUME 7.5 fl (7.5-11.1); MONO % 9.6 % (3.8-10.2); NEUT % 64.6 % (42.8-82.8); PLATELET COUNT 200 K/MM3 (134-434); RBC 2.67 M/mm3 (4.00-5.60); RDW 15.1 % (11.9-15.9); WHITE BLOOD COUNT 6.6 K/mm3 (4.0-10.0)
--- NOTE | 2019-12-18 07:01 | PN.GI ---
GI Progress Note Subjective: PULLED NGT OVERNIGHT FEELING MUCH BETTER TODAY HAD A BM - Objective Vital Signs: Vital Signs Temperature 98.2 F 12/18/19 06:00 Pulse Rate 97 H 12/18/19 06:00 Respiratory Rate 18 12/18/19 06:00 Blood Pressure 154/82 12/18/19 06:00 O2 Sat by Pulse Oximetry (%) 94 L 12/17/19 20:25 Constitutional: Well Nourished, No Distress, Calm Eyes: Yes: WNL HENT: Yes: WNL Neck: Yes: WNL Cardiovascular: Yes: WNL, Regular Rate and Rhythm Respiratory: Yes: WNL, Regular, CTA Bilaterally Gastrointestinal Inspection: Yes: WNL, Other (NOT TENDER ; NML BS) Extremities: Yes: WNL Edema: No Problem List - Problems (1) Abdominal pain Assessment/Plan: DID NOT TOLERATE NGT PASSED THE NIGHT. - NPO / IVF'S IF ABDOMEN REMAINS SOFT TRIAL OF CLEAR LIQUID IN THE AM - DULCOLAX SUPPOSITORY - AVOID NARCOTICS WHICH ARE WORSENING HIS SYMPTOMS Code(s): R10.9 - UNSPECIFIED ABDOMINAL PAIN (2) Anemia Code(s): D64.9 - ANEMIA, UNSPECIFIED
[2019-12-18 07:27] LABS: ALBUMIN 2.7 g/dl (3.4-5.0); ALK PHOS 62 U/L (45-117); ANION GAP 7 MMOL/L (8-16); BILIRUBIN,TOTAL 0.8 mg/dL (0.2-1); BLOOD UREA NITROGEN 9.2 mg/dL (7-18); CALCIUM 7.9 mg/dL (8.5-10.1); CHLORIDE 103 mmol/L (98-107); CO2 27 mmol/L (21-32); CREATININE 0.6 mg/dL (0.55-1.3); GLUCOSE,RANDOM 206 mg/dL (74-106); POTASSIUM 3.5 mmol/L (3.5-5.1); SGOT/AST 18 U/L (15-37); SGPT/ALT 14 U/L (13-61); SODIUM 137 mmol/L (136-145); TOT PROT 5.9 g/dl (6.4-8.2)
--- NOTE | 2019-12-18 07:32 | PN ---
Progress Note (short form) - Note Progress Note: NEUROSURGERY POD #6 No acute events per RN notes. Patient cont to c/o epigastric tenderness/pain/burning sensation. Wear his TLSO while ambulating with PT. Patient reports that his RNs wont allow him to ambulate without PT. Passing flatus. Having bm's (liquid stool) Denies h/o GERD, gastritis, PUD, hematemesis. Denies n/v/f/c, CP, palpitations, diaphoresis Last Vital Signs Temp Pulse Resp BP Pulse Ox 98.2 F 97 H 18 154/82 94 L 12/18/19 06:00 12/18/19 06:00 12/18/19 06:00 12/18/19 06:00 12/17/19 20:25 CBC, BMP 12/18/19 06:30 12/18/19 06:00 24 Hour Output 12/17/19 12/17/19 12/18/19 06:00 18:47 06:00 Lumbar BILL 40 40 80 Gen: nad ABD: soft. + bs in all quadrants. non-tender to palpation. No guarding, rebound or rigidity Back: Dressing taken down on rounds and wound inspected: No evidence of infection. Midline thorocolumbar incision c/d/i (dermabond sealed). BILL drain as above. Motor: GMNVI in all extremities. Tanning Wheel Filler strength equal b/l UE. 5/5 dorsi/plantar b /l LE Problem List - Problems (1) S/P lumbar fusion Assessment/Plan: POD #6 s/p T5-T11 costovertebral/tranpedicular decompression with osteotomies and arthrodesis. T5-T11 posterior fusion with pedicle screws 1. Agressive mobilization with PT 2. OOB to chair 3. Wear your TLSO brace while seated in chair or ambulating 4. DVT PPx via Heparin SQ and SCDs 5. BILL drain dc'd on rounds 6. New dressing applied 7. Pain management as ordered 8. Stool softners to avoid constipation 9. Trend H/H 10. FeSO4 11. Could benefit from SNF vs REHAB facility upon DC Above plan discussed with Dr. Ravi and agrees Code(s): Z98.1 - ARTHRODESIS STATUS (2) Abdominal pain Code(s): R10.9 - UNSPECIFIED ABDOMINAL PAIN (3) Diabetes Code(s): E11.9 - TYPE 2 DIABETES MELLITUS WITHOUT COMPLICATIONS Qualifiers: Diabetes mellitus type: type 2 Diabetes mellitus long term acute care registered nurse insulin use: with long term acute care registered nurse use Diabetes mellitus complication status: with unspecified complications (4) HTN (hypertension) Code(s): I10 - ESSENTIAL (PRIMARY) HYPERTENSION Qualifiers: Hypertension type: essential hypertension Qualified Code(s): I10 - Essential (primary) hypertension (5) Thoracic aortic aneurysm Code(s): I71.2 - THORACIC AORTIC ANEURYSM, WITHOUT RUPTURE
[2019-12-18] MEDS: D5-1/2NS+10 MEQ KCL - 10 MEQ/1,000 ML INFUS.BAG IV SCH ×3 (07:37→16:34)
[2019-12-18] MEDS ORDERED: SODIUM PHOSPHATE/NA BIPHOS 133 ML ENEMA PR ONE (08:24)
--- NOTE | 2019-12-18 08:24 | PN ---
Progress Note, Physician Chief Complaint: EVENTS OVER THE WEEKEND REVIEWED PATIENT REMOVED HIS NGT FOR TREATMENT OF GI DECOMPRESSION FROM POSSIBLE ILEUS. NO FEVERS HAS CLEAR DIET AND TOLERATING C/O PAIN TO EPIGASTRIC AREA - Current Medication List Current Medications: Active Medications Acetaminophen (Ofirmev Injection -) 1,000 mg IVPB Q6H PRN PRN Reason: PAIN LEVEL 6-10 Stop: 12/18/19 20:24 Last Admin: 12/18/19 03:35 Dose: 1,000 mg Al Hydroxide/Mg Hydroxide (Mylanta Oral Suspension -) 30 ml PO Q6H PRN PRN Reason: DYSPEPSIA Last Admin: 12/17/19 13:49 Dose: 30 ml Atorvastatin Calcium (Lipitor -) 20 mg PO HS [facility] Last Admin: 12/17/19 21:04 Dose: Not Given Baclofen (Lioresal -) 10 mg PO TID [facility] Last Admin: 12/18/19 05:02 Dose: Not Given Bisacodyl (Dulcolax Suppository -) 10 mg RC DAILY PRN PRN Reason: CONSTIPATION Last Admin: 12/17/19 13:56 Dose: 10 mg Brimonidine Tartrate (Alphagan 0.2% -) 1 drop OU BID [facility] Last Admin: 12/17/19 21:26 Dose: 1 drop Calcium Carbonate/Cholecalciferol (Os-Wilbur 500+D -) 2 tab PO DAILY [facility] Last Admin: 12/17/19 09:05 Dose: 2 tab Diphenhydramine HCl (Benadryl -) 25 mg PO Q6H PRN PRN Reason: FOR ITCHING Last Admin: 12/16/19 00:40 Dose: 25 mg Diphenhydramine HCl (Benadryl Injection -) 25 mg IVPUSH ONCE PRN PRN Reason: FOR ITCHING Last Admin: 12/12/19 23:01 Dose: 25 mg Docusate Sodium (Colace -) 100 mg PO TID [facility] Last Admin: 12/18/19 05:02 Dose: Not Given Ferrous Sulfate (Feosol -) 325 mg PO DAILY [facility] Last Admin: 12/17/19 09:04 Dose: 325 mg Folic Acid (Folic Acid -) 1 mg PO DAILY [facility] Last Admin: 12/17/19 09:05 Dose: 1 mg Heparin Sodium (Porcine) (Heparin -) 5,000 unit SQ Q8H [facility] Last Admin: 12/18/19 06:03 Dose: 5,000 unit Cefazolin Sodium 1 gm/ (Dextrose) 50 mls @ 100 mls/hr IVPB Q8H [facility] Last Admin: 12/18/19 05:13 Dose: 100 mls/hr Potassium Chloride/Dextrose/Sod Cl (D5-1/2ns+10 Meq Kcl -) 10 meq in 1,000 mls @ 42 mls/hr IV ASDIR [facility] Last Admin: 12/18/19 07:37 Dose: Not Given Insulin Aspart (Novolog Vial Sliding Scale -) 1 vial SQ ACHS [facility]; Protocol Last Admin: 12/18/19 06:03 Dose: Not Given Latanoprost (Xalatan 0.005% Eye Drops -) 1 drop OD HS [facility] Last Admin: 12/17/19 21:27 Dose: 1 drop Loratadine (Claritin -) 10 mg PO DAILY [facility] Last Admin: 12/17/19 09:04 Dose: 10 mg Losartan Potassium (Cozaar -) 100 mg PO DAILY [facility] Last Admin: 12/17/19 09:03 Dose: 100 mg Metoprolol Succinate (Toprol Xl -) 50 mg PO DAILY [facility] Last Admin: 12/17/19 10:18 Dose: 25 mg Naloxone HCl (Narcan -) 0.4 mg IVPUSH ONCE PRN PRN Reason: Sedation Ondansetron HCl (Zofran Injection) 4 mg IVPUSH Q6H PRN PRN Reason: NAUSEA Last Admin: 12/14/19 01:36 Dose: 4 mg Oxycodone HCl (Oxycontin -) 10 mg PO BID [facility] Last Admin: 12/17/19 21:05 Dose: Not Given Oxycodone HCl (Roxicodone -) 5 mg PO Q6H PRN PRN Reason: PAIN LEVEL 1-5 Last Admin: 12/17/19 10:18 Dose: 5 mg Pantoprazole Sodium (Protonix Iv) 40 mg IVPUSH BID [facility] Last Admin: 12/17/19 21:27 Dose: 40 mg Polyethylene Glycol (Miralax (For Daily Use) -) 17 gm PO BID [facility] Last Admin: 12/17/19 21:04 Dose: Not Given Pregabalin (Lyrica -) 150 mg PO DAILY [facility] Last Admin: 12/17/19 09:04 Dose: 150 mg Sertraline HCl (Zoloft -) 50 mg PO DAILY [facility] Last Admin: 12/17/19 09:04 Dose: 50 mg Simethicone (Mylicon -) 80 mg PO Q4H PRN PRN Reason: DYSPEPSIA Last Admin: 12/17/19 13:49 Dose: 80 mg - Objective Vital Signs: Vital Signs Temperature 98.2 F 12/18/19 06:00 Pulse Rate 97 H 12/18/19 06:00 Respiratory Rate 18 12/18/19 06:00 Blood Pressure 154/82 12/18/19 06:00 O2 Sat by Pulse Oximetry (%) 94 L 12/17/19 20:25 Constitutional: Yes: Mild Distress Cardiovascular: Yes: Regular Rate and Rhythm Respiratory: Yes: CTA Bilaterally Gastrointestinal: Yes: Soft, Tenderness Genitourinary: Yes: WNL Musculoskeletal: Yes: Muscle Weakness Edema: No Neurological: Yes: Pre-Existing Deficit, Other (IMPROVING LEG STRENGHT IN COMPARISON TO FEW DAYS AGO) Psychiatric: Yes: WNL Labs: CBC, BMP 12/18/19 06:30 12/18/19 06:00 Problem List - Problems (1) Thoracic radiculopathy due to degenerative joint disease of spine Code(s): M47.24 - OTHER SPONDYLOSIS WITH RADICULOPATHY, THORACIC REGION (2) S/P spinal surgery Code(s): Z98.890 - OTHER SPECIFIED POSTPROCEDURAL STATES (3) Abdominal pain Code(s): R10.9 - UNSPECIFIED ABDOMINAL PAIN (4) DJD (degenerative joint disease) Code(s): M19.90 - UNSPECIFIED OSTEOARTHRITIS, UNSPECIFIED SITE Qualifiers: Osteoarthritis location: spine Spinal region: lumbar Spinal osteoarthritis complication: with myelopathy Qualified Code(s): M47.16 - Other spondylosis with myelopathy, lumbar region (5) Diabetes Code(s): E11.9 - TYPE 2 DIABETES MELLITUS WITHOUT COMPLICATIONS Qualifiers: Diabetes mellitus type: type 2 Diabetes mellitus group home insulin use: with terminal superintendent use Diabetes mellitus complication status: with unspecified complications (6) GERD (gastroesophageal reflux disease) Code(s): K21.9 - GASTRO-ESOPHAGEAL REFLUX DISEASE WITHOUT ESOPHAGITIS Qualifiers: Esophagitis presence: without esophagitis Qualified Code(s): K21.9 - Gastro -esophageal reflux disease without esophagitis (7) HLD (hyperlipidemia) Code(s): E78.5 - HYPERLIPIDEMIA, UNSPECIFIED (8) HTN (hypertension) Code(s): I10 - ESSENTIAL (PRIMARY) HYPERTENSION Qualifiers: Hypertension type: essential hypertension Qualified Code(s): I10 - Essential (primary) hypertension (9) History of lumbar fusion Code(s): Z98.1 - ARTHRODESIS STATUS (10) Thoracic spinal stenosis Code(s): M48.04 - SPINAL STENOSIS, THORACIC REGION (11) Ileus, postoperative Code(s): K91.89 - OTH POSTPROCEDURAL COMPLICATIONS AND DISORDERS OF DGSTV SYS; K56.7 - ILEUS, UNSPECIFIED (12) Anemia Code(s): D64.9 - ANEMIA, UNSPECIFIED (13) Ascending aorta dilatation Code(s): I77.810 - THORACIC AORTIC ECTASIA Assessment/Plan POD #6 THORACIC SPINE SURGERY WORSENING ABDOMINAL PAIN SECONDARY TO OPIOD NARCOTIC PAIN TREATMENT PLEASE ONLY GIVE TYLENOL FOR PAIN AND MAY USE TORADOL RECTAL ENEMA/STOOL SOFTENERS AND MAY USE RELISTOR OOB TO CHAIR/PT EVAL ANEMIA MONITOR AND KEEP H/H ABOVE 8/26 GI FOLLOW UP, REFUSES NGT CLEAR DIET DM MONITOR BGM ON [facility] WHEN READY
--- NOTE | 2019-12-18 10:07 | EKG ---
Test Reason : Blood Pressure : / mmHG Vent. Rate : 099 BPM Atrial Rate : 099 BPM P-R Int : 170 ms QRS Dur : 078 ms QT Int : 374 ms P-R-T Axes : 007 -26 -13 degrees QTc Int : 479 ms NORMAL SINUS RHYTHM MINIMAL VOLTAGE CRITERIA FOR LVH, MAY BE NORMAL VARIANT BORDERLINE ECG WHEN COMPARED WITH ECG OF 13-DEC-2019 10:24, NO SIGNIFICANT CHANGE WAS FOUND Confirmed by Izzy Benavides ([id number]) on 12/18/2019 10:07:05 AM Referred By: Francisca HENRY Confirmed By:Izzy Benavides
[2019-12-18] MEDS: KETOROLAC TROMETHAMINE 30 MG/1 ML VIAL IVPUSH PRN ×2 (10:37→21:47)
[2019-12-18] MEDS: BRIMONIDINE TARTRATE 0.2% OPHTHALMIC 5 ML BOTTLE OU SCH ×2 (10:52→21:45)
[2019-12-18] MEDS: PREGABALIN 75 MG CAPSULE PO SCH (11:00)
--- NOTE | 2019-12-18 11:00 | PN ---
Progress Note (short form) - Note Progress Note: No CP or SOB. Pain seems better today. No acute events overnight. (+) bloody drainage in the BILL Intake & Output 12/15/19 12/16/19 12/17/19 12/18/19 23:59 23:59 23:59 23:59 Intake Total 2150 1068 386 Output Total 1835 1425 880 80 Balance 315 -357 -494 -80 Last Vital Signs Temp Pulse Resp BP Pulse Ox 98.2 F 97 H 18 154/82 94 L 12/18/19 06:00 12/18/19 06:00 12/18/19 06:00 12/18/19 06:00 12/17/19 20:25 Active Medications Acetaminophen (Ofirmev Injection -) 1,000 mg IVPB Q6H PRN PRN Reason: PAIN LEVEL 6-10 Stop: 12/18/19 20:24 Last Admin: 12/18/19 03:35 Dose: 1,000 mg Al Hydroxide/Mg Hydroxide (Mylanta Oral Suspension -) 30 ml PO Q6H PRN PRN Reason: DYSPEPSIA Last Admin: 12/17/19 13:49 Dose: 30 ml Atorvastatin Calcium (Lipitor -) 20 mg PO HS [facility] Last Admin: 12/17/19 21:04 Dose: Not Given Baclofen (Lioresal -) 10 mg PO TID [facility] Last Admin: 12/18/19 05:02 Dose: Not Given Bisacodyl (Dulcolax Suppository -) 10 mg RC DAILY PRN PRN Reason: CONSTIPATION Last Admin: 12/17/19 13:56 Dose: 10 mg Brimonidine Tartrate (Alphagan 0.2% -) 1 drop OU BID [facility] Last Admin: 12/18/19 10:52 Dose: 1 drop Calcium Carbonate/Cholecalciferol (Os-Wilbur 500+D -) 2 tab PO DAILY [facility] Last Admin: 12/17/19 09:05 Dose: 2 tab Diphenhydramine HCl (Benadryl -) 25 mg PO Q6H PRN PRN Reason: FOR ITCHING Last Admin: 12/16/19 00:40 Dose: 25 mg Diphenhydramine HCl (Benadryl Injection -) 25 mg IVPUSH ONCE PRN PRN Reason: FOR ITCHING Last Admin: 12/12/19 23:01 Dose: 25 mg Docusate Sodium (Colace -) 100 mg PO TID [facility] Last Admin: 12/18/19 05:02 Dose: Not Given Ferrous Sulfate (Feosol -) 325 mg PO DAILY [facility] Last Admin: 12/17/19 09:04 Dose: 325 mg Folic Acid (Folic Acid -) 1 mg PO DAILY [facility] Last Admin: 12/17/19 09:05 Dose: 1 mg Heparin Sodium (Porcine) (Heparin -) 5,000 unit SQ Q8H [facility] Last Admin: 12/18/19 06:03 Dose: 5,000 unit Potassium Chloride/Dextrose/Sod Cl (D5-1/2ns+10 Meq Kcl -) 10 meq in 1,000 mls @ 42 mls/hr IV ASDIR [facility] Last Admin: 12/18/19 07:37 Dose: Not Given Insulin Aspart (Novolog Vial Sliding Scale -) 1 vial SQ ACHS [facility]; Protocol Last Admin: 12/18/19 10:51 Dose: Not Given Ketorolac Tromethamine (Toradol Injection -) 30 mg IVPUSH Q6H PRN PRN Reason: PAIN LEVEL 6-10 Stop: 12/23/19 08:23 Last Admin: 12/18/19 10:37 Dose: 30 mg Latanoprost (Xalatan 0.005% Eye Drops -) 1 drop OD HS [facility] Last Admin: 12/17/19 21:27 Dose: 1 drop Loratadine (Claritin -) 10 mg PO DAILY [facility] Last Admin: 12/17/19 09:04 Dose: 10 mg Losartan Potassium (Cozaar -) 100 mg PO DAILY [facility] Last Admin: 12/17/19 09:03 Dose: 100 mg Metoprolol Succinate (Toprol Xl -) 50 mg PO DAILY [facility] Last Admin: 12/17/19 10:18 Dose: 25 mg Naloxone HCl (Narcan -) 0.4 mg IVPUSH ONCE PRN PRN Reason: Sedation Ondansetron HCl (Zofran Injection) 4 mg IVPUSH Q6H PRN PRN Reason: NAUSEA Last Admin: 12/14/19 01:36 Dose: 4 mg Oxycodone HCl (Oxycontin -) 10 mg PO BID [facility] Last Admin: 12/17/19 21:05 Dose: Not Given Oxycodone HCl (Roxicodone -) 5 mg PO Q6H PRN PRN Reason: PAIN LEVEL 1-5 Last Admin: 12/17/19 10:18 Dose: 5 mg Pantoprazole Sodium (Protonix Iv) 40 mg IVPUSH BID [facility] Last Admin: 12/17/19 21:27 Dose: 40 mg Polyethylene Glycol (Miralax (For Daily Use) -) 17 gm PO BID [facility] Last Admin: 12/17/19 21:04 Dose: Not Given Pregabalin (Lyrica -) 150 mg PO DAILY [facility] Last Admin: 12/17/19 09:04 Dose: 150 mg Sertraline HCl (Zoloft -) 50 mg PO DAILY [facility] Last Admin: 12/17/19 09:04 Dose: 50 mg Simethicone (Mylicon -) 80 mg PO Q4H PRN PRN Reason: DYSPEPSIA Last Admin: 12/17/19 13:49 Dose: 80 mg Constitutional: Yes: NAD Eyes: Yes: WNL HENT: Yes: WNL Neck: Yes: WNL Cardiovascular: Yes: Regular Rate and Rhythm, S1, S2 Respiratory: Yes: Diminished at the bases Gastrointestinal: Yes: tender, (+) Soft, (+) BS Extremities: Yes: WNL Edema: No Labs: Laboratory Results - last 24 hr 12/17/19 12/17/19 12/18/19 17:35 20:34 06:00 WBC RBC Hgb Hct MCV MCH MCHC RDW Plt Count MPV Absolute Neuts (auto) Neutrophils % Lymphocytes % Monocytes % Eosinophils % Basophils % Nucleated RBC % Sodium 137 Potassium 3.5 Chloride 103 Carbon Dioxide 27 Anion Gap 7 L BUN 9.2 Creatinine 0.6 Est GFR (CKD-EPI)AfAm 118.90 Est GFR (CKD-EPI)NonAf 102.59 POC Glucometer 177 196 Random Glucose 206 H Calcium 7.9 L Total Bilirubin 0.8 AST 18 ALT 14 Alkaline Phosphatase 62 Creatine Kinase 102 Troponin I < 0.02 Total Protein 5.9 L Albumin 2.7 L 12/18/19 12/18/19 12/18/19 06:02 06:30 10:51 WBC 6.6 RBC 2.67 L Hgb 9.0 L Hct 26.2 L MCV 97.9 H MCH 33.7 MCHC 34.5 RDW 15.1 Plt Count 200 MPV 7.5 Absolute Neuts (auto) 4.3 Neutrophils % 64.6 Lymphocytes % 23.1 Monocytes % 9.6 Eosinophils % 2.2 Basophils % 0.5 Nucleated RBC % 0 Sodium Potassium Chloride Carbon Dioxide Anion Gap BUN Creatinine Est GFR (CKD-EPI)AfAm Est GFR (CKD-EPI)NonAf POC Glucometer 185 203 Random Glucose Calcium Total Bilirubin AST ALT Alkaline Phosphatase Creatine Kinase Troponin I Total Protein Albumin Problem List - Problems (1) S/P spinal surgery Code(s): Z98.890 - OTHER SPECIFIED POSTPROCEDURAL STATES (2) Thoracic radiculopathy due to degenerative joint disease of spine Code(s): M47.24 - OTHER SPONDYLOSIS WITH RADICULOPATHY, THORACIC REGION (3) GERD (gastroesophageal reflux disease) Code(s): K21.9 - GASTRO-ESOPHAGEAL REFLUX DISEASE WITHOUT ESOPHAGITIS Qualifiers: Esophagitis presence: without esophagitis Qualified Code(s): K21.9 - Gastro -esophageal reflux disease without esophagitis (4) HLD (hyperlipidemia) Code(s): E78.5 - HYPERLIPIDEMIA, UNSPECIFIED (5) HTN (hypertension) Code(s): I10 - ESSENTIAL (PRIMARY) HYPERTENSION Qualifiers: Hypertension type: essential hypertension Qualified Code(s): I10 - Essential (primary) hypertension (6) Thoracic aortic aneurysm Code(s): I71.2 - THORACIC AORTIC ANEURYSM, WITHOUT RUPTURE (7) Thoracic spinal stenosis Code(s): M48.04 - SPINAL STENOSIS, THORACIC REGION (8) Chest pain Code(s): R07.9 - CHEST PAIN, UNSPECIFIED (9) Dyspnea Code(s): R06.00 - DYSPNEA, UNSPECIFIED (10) Fever Code(s): R50.9 - FEVER, UNSPECIFIED (11) Anemia Code(s): D64.9 - ANEMIA, UNSPECIFIED Assessment/Plan IMP CHEST PAIN LIKELY SECONDARY TO RECENT SURGERY S/P T5-T11 DECOMPRESSION AND POSTERIOR FUSION NIDDM HTN HLD LEFT EYE GLAUCOMA H/O THORACIC AORTIC ANEURYSM FEVER ANEMIA PLAN ANALGESICS INCENTIVE SPIROMETER NASAL O2 NEEDED DVT PROPHYLAXIS ABX PER ID MONITOR LYTES,H+H NORMAL TRANSFUSION THRESHOLD Dr Orozco
[2019-12-18] MEDS: PANTOPRAZOLE SODIUM 40 MG VIAL IVPUSH SCH ×2 (11:47→21:46)
[2019-12-18] MEDS: oxyCODONE HCL 10 MG SUSTAINED ACTING TABLET PO SCH ×2 (12:19→21:46)
[2019-12-18] MEDS ORDERED: PT OWN MED DRAWER 7, Y5N ONE ×2 (14:22→21:30)
[2019-12-18] MEDS: CALCIUM 500MG/VIT-D 200 UNITS COMBO TABLET (FP) PO SCH (14:25)
[2019-12-18] MEDS: SERTRALINE HCL 50 MG TABLET (FP) PO SCH (14:26)
[2019-12-18] MEDS: FERROUS SO4 325 MG TABLET (FP) PO SCH (14:26)
[2019-12-18] MEDS: FOLIC ACID 1 MG TABLET (FP) PO SCH (14:26)
[2019-12-18] MEDS: LORATADINE 10 MG TABLET PO SCH (14:27)
[2019-12-18] MEDS: metoPROLOL SUCCINATE 25 MG TAB.SR.24H (FP) PO SCH (14:27)
[2019-12-18] MEDS: LOSARTAN POTASSIUM 50 MG TABLET (FP) PO SCH (14:28)
[2019-12-18] MEDS: POLYETHYLENE GLYCOL 3350 119 GM BTL PO SCH ×2 (14:34→21:46)
--- NOTE | 2019-12-18 15:13 | PN ---
Progress Note, Physician History of Present Illness: Pt seen and examined at bedside. He did not tolerate the NG tube. - Current Medication List Current Medications: Active Medications Acetaminophen (Ofirmev Injection -) 1,000 mg IVPB Q6H PRN PRN Reason: PAIN LEVEL 6-10 Stop: 12/18/19 20:24 Last Admin: 12/18/19 13:03 Dose: 1,000 mg Al Hydroxide/Mg Hydroxide (Mylanta Oral Suspension -) 30 ml PO Q6H PRN PRN Reason: DYSPEPSIA Last Admin: 12/17/19 13:49 Dose: 30 ml Atorvastatin Calcium (Lipitor -) 20 mg PO HS [facility] Last Admin: 12/17/19 21:04 Dose: Not Given Baclofen (Lioresal -) 10 mg PO TID [facility] Last Admin: 12/18/19 14:27 Dose: 10 mg Bisacodyl (Dulcolax Suppository -) 10 mg RC DAILY PRN PRN Reason: CONSTIPATION Last Admin: 12/17/19 13:56 Dose: 10 mg Brimonidine Tartrate (Alphagan 0.2% -) 1 drop OU BID [facility] Last Admin: 12/18/19 10:52 Dose: 1 drop Calcium Carbonate/Cholecalciferol (Os-Wilbur 500+D -) 2 tab PO DAILY [facility] Last Admin: 12/18/19 14:25 Dose: 2 tab Diphenhydramine HCl (Benadryl -) 25 mg PO Q6H PRN PRN Reason: FOR ITCHING Last Admin: 12/16/19 00:40 Dose: 25 mg Diphenhydramine HCl (Benadryl Injection -) 25 mg IVPUSH ONCE PRN PRN Reason: FOR ITCHING Last Admin: 12/12/19 23:01 Dose: 25 mg Docusate Sodium (Colace -) 100 mg PO TID [facility] Last Admin: 12/18/19 14:27 Dose: 100 mg Ferrous Sulfate (Feosol -) 325 mg PO DAILY [facility] Last Admin: 12/18/19 14:26 Dose: 325 mg Folic Acid (Folic Acid -) 1 mg PO DAILY [facility] Last Admin: 12/18/19 14:26 Dose: 1 mg Heparin Sodium (Porcine) (Heparin -) 5,000 unit SQ Q8H [facility] Last Admin: 12/18/19 14:32 Dose: 5,000 unit Potassium Chloride/Dextrose/Sod Cl (D5-1/2ns+10 Meq Kcl -) 10 meq in 1,000 mls @ 42 mls/hr IV ASDIR [facility] Last Admin: 12/18/19 07:37 Dose: Not Given Insulin Aspart (Novolog Vial Sliding Scale -) 1 vial SQ ACHS [facility]; Protocol Last Admin: 12/18/19 10:51 Dose: Not Given Ketorolac Tromethamine (Toradol Injection -) 30 mg IVPUSH Q6H PRN PRN Reason: PAIN LEVEL 6-10 Stop: 12/23/19 08:23 Last Admin: 12/18/19 10:37 Dose: 30 mg Latanoprost (Xalatan 0.005% Eye Drops -) 1 drop OD HS [facility] Last Admin: 12/17/19 21:27 Dose: 1 drop Loratadine (Claritin -) 10 mg PO DAILY [facility] Last Admin: 12/18/19 14:27 Dose: 10 mg Losartan Potassium (Cozaar -) 100 mg PO DAILY [facility] Last Admin: 12/18/19 14:28 Dose: 100 mg Metoprolol Succinate (Toprol Xl -) 50 mg PO DAILY [facility] Last Admin: 12/18/19 14:27 Dose: 50 mg Naloxone HCl (Narcan -) 0.4 mg IVPUSH ONCE PRN PRN Reason: Sedation Ondansetron HCl (Zofran Injection) 4 mg IVPUSH Q6H PRN PRN Reason: NAUSEA Last Admin: 12/14/19 01:36 Dose: 4 mg Oxycodone HCl (Oxycontin -) 10 mg PO BID [facility] Last Admin: 12/18/19 12:19 Dose: Not Given Pantoprazole Sodium (Protonix Iv) 40 mg IVPUSH BID [facility] Last Admin: 12/18/19 11:47 Dose: 40 mg Polyethylene Glycol (Miralax (For Daily Use) -) 17 gm PO BID [facility] Last Admin: 12/18/19 14:34 Dose: Not Given Pregabalin (Lyrica -) 150 mg PO DAILY [facility] Last Admin: 12/18/19 11:00 Dose: Not Given Sertraline HCl (Zoloft -) 50 mg PO DAILY [facility] Last Admin: 12/18/19 14:26 Dose: 50 mg Simethicone (Mylicon -) 80 mg PO Q4H PRN PRN Reason: DYSPEPSIA Last Admin: 12/17/19 13:49 Dose: 80 mg - Objective Vital Signs: Vital Signs Temperature 98 F 12/18/19 10:00 Pulse Rate 98 H 12/18/19 14:40 Respiratory Rate 18 12/18/19 14:40 Blood Pressure 156/89 12/18/19 14:40 O2 Sat by Pulse Oximetry (%) 98 12/18/19 09:00 Constitutional: Yes: Calm Eyes: Yes: Conjunctiva Clear HENT: Yes: Atraumatic Neck: Yes: Supple Cardiovascular: Yes: S1, S2 Respiratory: Yes: CTA Bilaterally Gastrointestinal: Yes: Normal Bowel Sounds Musculoskeletal: Yes: Back Pain Edema: No Neurological: Yes: Oriented Psychiatric: Yes: Oriented Labs: CBC, BMP 12/18/19 06:30 12/18/19 06:00 Problem List - Problems (1) Diabetes Code(s): E11.9 - TYPE 2 DIABETES MELLITUS WITHOUT COMPLICATIONS Qualifiers: Diabetes mellitus type: type 2 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 Diabetes mellitus complication status: with unspecified complications (2) GERD (gastroesophageal reflux disease) Code(s): K21.9 - GASTRO-ESOPHAGEAL REFLUX DISEASE WITHOUT ESOPHAGITIS Qualifiers: Esophagitis presence: without esophagitis Qualified Code(s): K21.9 - Gastro -esophageal reflux disease without esophagitis (3) HLD (hyperlipidemia) Code(s): E78.5 - HYPERLIPIDEMIA, UNSPECIFIED (4) HTN (hypertension) Code(s): I10 - ESSENTIAL (PRIMARY) HYPERTENSION Qualifiers: Hypertension type: essential hypertension Qualified Code(s): I10 - Essential (primary) hypertension Assessment/Plan Current Medications Generic Name Dose Route Start Last Admin Trade Name Freq PRN Reason Stop Dose Admin Acetaminophen 1,000 mg 12/17/19 20:24 12/18/19 13:03 Ofirmev Injection - IVPB 12/18/19 20:24 1,000 mg Q6H PRN Administration PAIN LEVEL 6-10 Al Hydroxide/Mg Hydroxide 30 ml 12/13/19 09:39 12/17/19 13:49 Mylanta Oral Suspension - PO 30 ml Q6H PRN Administration DYSPEPSIA Atorvastatin Calcium 20 mg 12/12/19 22:00 12/17/19 21:04 Lipitor - PO Not Given HS [facility] Baclofen 10 mg 12/13/19 14:00 12/18/19 14:27 Lioresal - PO 10 mg TID [facility] Administration Bisacodyl 10 mg 12/15/19 13:55 12/17/19 13:56 Dulcolax Suppository - RC 10 mg DAILY PRN Administration CONSTIPATION Brimonidine Tartrate 1 drop 12/12/19 22:00 12/18/19 10:52 Alphagan 0.2% - OU 1 drop BID [facility] Administration Calcium Carbonate/Cholecalciferol 2 tab 12/13/19 13:45 12/18/19 14:25 Os-Wilbur 500+D - PO 2 tab DAILY [facility] Administration Diphenhydramine HCl 25 mg 12/12/19 14:16 12/16/19 00:40 Benadryl - PO 25 mg Q6H PRN Administration FOR ITCHING Diphenhydramine HCl 25 mg 12/12/19 14:26 12/12/19 23:01 Benadryl Injection - IVPUSH 25 mg ONCE PRN Administration FOR ITCHING Docusate Sodium 100 mg 12/12/19 22:00 12/18/19 14:27 Colace - PO 100 mg TID [facility] Administration Ferrous Sulfate 325 mg 12/13/19 10:00 12/18/19 14:26 Feosol - PO 325 mg DAILY [facility] Administration Folic Acid 1 mg 12/13/19 10:00 12/18/19 14:26 Folic Acid - PO 1 mg DAILY [facility] Administration Heparin Sodium (Porcine) 5,000 unit 12/12/19 22:00 12/18/19 14:32 Heparin - SQ 5,000 unit Q8H [facility] Administration Potassium Chloride/Dextrose/Sod Cl 10 meq in 1,000 mls @ 42 mls/hr 12/15/19 18 :00 12/18/19 07:37 D5-1/2ns+10 Meq Kcl - IV Not Given ASDIR [facility] Insulin Aspart 1 vial 12/12/19 16:30 12/18/19 10:51 Novolog Vial Sliding Scale - SQ Not Given ACHS [facility] Protocol Ketorolac Tromethamine 30 mg 12/18/19 08:24 12/18/19 10:37 Toradol Injection - IVPUSH 12/23/19 08:23 30 mg Q6H PRN Administration PAIN LEVEL 6-10 Latanoprost 1 drop 12/12/19 22:00 12/17/19 21:27 Xalatan 0.005% Eye Drops - OD 1 drop HS [facility] Administration Loratadine 10 mg 12/13/19 10:00 12/18/19 14:27 Claritin - PO 10 mg DAILY [facility] Administration Losartan Potassium 100 mg 12/13/19 10:00 12/18/19 14:28 Cozaar - PO 100 mg DAILY [facility] Administration Metoprolol Succinate 50 mg 12/17/19 10:00 12/18/19 14:27 Toprol Xl - PO 50 mg DAILY [facility] Administration Naloxone HCl 0.4 mg 12/12/19 14:26 Narcan - IVPUSH ONCE PRN Sedation Ondansetron HCl 4 mg 12/13/19 12:38 12/14/19 01:36 Zofran Injection IVPUSH 4 mg Q6H PRN Administration NAUSEA Oxycodone HCl 10 mg 12/13/19 14:26 12/18/19 12:19 Oxycontin - PO Not Given BID [facility] Pantoprazole Sodium 40 mg 12/16/19 10:45 12/18/19 11:47 Protonix Iv IVPUSH 40 mg BID [facility] Administration Polyethylene Glycol 17 gm 12/15/19 22:00 12/18/19 14:34 Miralax (For Daily Use) - PO Not Given BID [facility] Pregabalin 150 mg 12/13/19 10:00 12/18/19 11:00 Lyrica - PO Not Given DAILY [facility] Sertraline HCl 50 mg 12/13/19 10:00 12/18/19 14:26 Zoloft - PO 50 mg DAILY [facility] Administration Simethicone 80 mg 12/13/19 09:39 12/17/19 13:49 Mylicon - PO 80 mg Q4H PRN Administration DYSPEPSIA Impression 1. hypocalcemia with corrected low normal 2. dm 3. htn 4. s/p back surgery 5. gerd 6. mild rhabdo Plan - cont fluids with potassium - GI input appreciated - monitor lytes - cont fluids while npo - cpk has normalized
[2019-12-18] MEDS ORDERED: POTASSIUM CHLORIDE ORAL LIQUID 20 MEQ/15 ML PO ONE (15:14)
[2019-12-18] MEDS: BISACODYL 10 MG SUPP.RECT RC PRN (20:00)
[2019-12-18] MEDS: ATORVASTATIN CA 20 MG TABLET (FP) PO SCH (21:38)
[2019-12-18] MEDS: LATANOPROST 0.005% OPHTH SOLN 2.5ML BOTTLE OD SCH (21:45)
[2019-12-19] MEDS ORDERED: ACETAMINOPHEN 1000 MG/100 ML VIAL (NON FORMULARY) IVPB PRN (01:48)
[2019-12-19] MEDS: SIMETHICONE 80 MG TAB.CHEW (FP) PO PRN (02:18)
--- NOTE | 2019-12-19 02:27 | HOSP ---
Subjective - Review of Symptoms Events since last encounter: Hospitalist Encounter Notified by the RN, that the patient reports having abdominal pain, ? distention. Was asked to assess. Arrived to bedside. patient is AAOx3, he reports generalized abdominal pain and rectal pressure. Patient reports having his last BM 2-3 days ago. He admantly denies having a BM yesterday after receiving an enema. PE performed see EMR. Plan: FUA Xray stat Simethicone now [facility] prn Gastrointestinal: Yes: Abdominal Pain, Other (rectal pressure) Physical Examination Vital Signs: Vital Signs Temperature 98.8 F 12/19/19 01:12 Pulse Rate 94 H 12/19/19 01:12 Respiratory Rate 18 12/19/19 01:12 Blood Pressure 158/94 12/19/19 01:12 O2 Sat by Pulse Oximetry (%) 98 12/18/19 21:00 Constitutional: Yes: Anxious, Mild Distress Eyes: Yes: WNL, Conjunctiva Clear, EOM Intact, PERRL HENT: Yes: WNL, Atraumatic, Normocephalic Neck: Yes: WNL, Supple, Trachea Midline Cardiovascular: Yes: WNL, Regular Rate and Rhythm, S1, S2 Respiratory: Yes: WNL, Regular, CTA Bilaterally Gastrointestinal: Yes: Normal Bowel Sounds, Soft, Tenderness (generalized), Tenderness, Epigastrium. No: Distention, Rectal Bleeding, Vomiting ...Rectal Exam: Yes: Sphincter Tone Normal Renal/: Yes: WNL Breast(s): Yes: WNL Edema: No Peripheral Pulses WNL: Yes Neurological: Yes: WNL, Alert, Oriented ...Motor Strength: WNL Psychiatric: Yes: WNL, Alert, Oriented Labs: CBC, BMP 12/18/19 06:30 12/18/19 06:00 Laboratory Results - last 24 hr 12/18/19 12/18/19 12/18/19 06:00 06:02 06:30 WBC 6.6 RBC 2.67 L Hgb 9.0 L Hct 26.2 L MCV 97.9 H MCH 33.7 MCHC 34.5 RDW 15.1 Plt Count 200 MPV 7.5 Absolute Neuts (auto) 4.3 Neutrophils % 64.6 Lymphocytes % 23.1 Monocytes % 9.6 Eosinophils % 2.2 Basophils % 0.5 Nucleated RBC % 0 Sodium 137 Potassium 3.5 Chloride 103 Carbon Dioxide 27 Anion Gap 7 L BUN 9.2 Creatinine 0.6 Est GFR (CKD-EPI)AfAm 118.90 Est GFR (CKD-EPI)NonAf 102.59 POC Glucometer 185 Random Glucose 206 H Calcium 7.9 L Total Bilirubin 0.8 AST 18 ALT 14 Alkaline Phosphatase 62 Creatine Kinase 102 Troponin I < 0.02 Total Protein 5.9 L Albumin 2.7 L 12/18/19 12/18/19 12/18/19 10:51 16:36 21:36 WBC RBC Hgb Hct MCV MCH MCHC RDW Plt Count MPV Absolute Neuts (auto) Neutrophils % Lymphocytes % Monocytes % Eosinophils % Basophils % Nucleated RBC % Sodium Potassium Chloride Carbon Dioxide Anion Gap BUN Creatinine Est GFR (CKD-EPI)AfAm Est GFR (CKD-EPI)NonAf POC Glucometer 203 228 156 Random Glucose Calcium Total Bilirubin AST ALT Alkaline Phosphatase Creatine Kinase Troponin I Total Protein Albumin Intake & Output 12/16/19 12/17/19 12/18/19 12/19/19 23:59 23:59 23:59 23:59 Intake Total 0119 973 8688 Output Total 9914 238 7328 Balance -400 -418 -866 Current Medications Generic Name Dose Route Start Last Admin Trade Name Freq PRN Reason Stop Dose Admin Acetaminophen 1,000 mg 12/19/19 01:48 12/19/19 02:07 Ofirmev Injection - IVPB 12/20/19 01:48 1,000 mg Q6H PRN Administration PAIN LEVEL 6-10 Al Hydroxide/Mg Hydroxide 30 ml 12/13/19 09:39 12/17/19 13:49 Mylanta Oral Suspension - PO 30 ml Q6H PRN Administration DYSPEPSIA Atorvastatin Calcium 20 mg 12/12/19 22:00 12/18/19 21:38 Lipitor - PO 20 mg HS [facility] Administration Baclofen 10 mg 12/13/19 14:00 12/18/19 21:38 Lioresal - PO 10 mg TID [facility] Administration Bisacodyl 10 mg 12/15/19 13:55 12/18/19 20:00 Dulcolax Suppository - RC 10 mg DAILY PRN Administration CONSTIPATION Brimonidine Tartrate 1 drop 12/12/19 22:00 12/18/19 21:45 Alphagan 0.2% - OU 1 drop BID [facility] Administration Calcium Carbonate/Cholecalciferol 2 tab 12/13/19 13:45 12/18/19 14:25 Os-Wilbur 500+D - PO 2 tab DAILY [facility] Administration Diphenhydramine HCl 25 mg 12/12/19 14:16 12/16/19 00:40 Benadryl - PO 25 mg Q6H PRN Administration FOR ITCHING Diphenhydramine HCl 25 mg 12/12/19 14:26 12/12/19 23:01 Benadryl Injection - IVPUSH 25 mg ONCE PRN Administration FOR ITCHING Docusate Sodium 100 mg 12/12/19 22:00 12/18/19 21:38 Colace - PO 100 mg TID [facility] Administration Ferrous Sulfate 325 mg 12/13/19 10:00 12/18/19 14:26 Feosol - PO 325 mg DAILY [facility] Administration Folic Acid 1 mg 12/13/19 10:00 12/18/19 14:26 Folic Acid - PO 1 mg DAILY [facility] Administration Heparin Sodium (Porcine) 5,000 unit 12/12/19 22:00 12/18/19 21:46 Heparin - SQ 5,000 unit Q8H [facility] Administration Potassium Chloride/Dextrose/Sod Cl 10 meq in 1,000 mls @ 55 mls/hr 12/18/19 15 :13 12/18/19 16:34 D5-1/2ns+10 Meq Kcl - IV 55 mls/hr ASDIR [facility] Administration Insulin Aspart 1 vial 12/12/19 16:30 12/18/19 21:37 Novolog Vial Sliding Scale - SQ Not Given ACHS [facility] Protocol Ketorolac Tromethamine 30 mg 12/18/19 08:24 12/18/19 21:47 Toradol Injection - IVPUSH 12/23/19 08:23 30 mg Q6H PRN Administration PAIN LEVEL 6-10 Latanoprost 1 drop 12/12/19 22:00 12/18/19 21:45 Xalatan 0.005% Eye Drops - OD 1 drop HS [facility] Administration Loratadine 10 mg 12/13/19 10:00 12/18/19 14:27 Claritin - PO 10 mg DAILY [facility] Administration Losartan Potassium 100 mg 12/13/19 10:00 12/18/19 14:28 Cozaar - PO 100 mg DAILY [facility] Administration Metoprolol Succinate 50 mg 12/17/19 10:00 12/18/19 14:27 Toprol Xl - PO 50 mg DAILY [facility] Administration Naloxone HCl 0.4 mg 12/12/19 14:26 Narcan - IVPUSH ONCE PRN Sedation Ondansetron HCl 4 mg 12/13/19 12:38 12/14/19 01:36 Zofran Injection IVPUSH 4 mg Q6H PRN Administration NAUSEA Oxycodone HCl 10 mg 12/13/19 14:26 12/18/19 21:46 Oxycontin - PO Not Given BID [facility] Pantoprazole Sodium 40 mg 12/16/19 10:45 12/18/19 21:46 Protonix Iv IVPUSH 40 mg BID [facility] Administration Polyethylene Glycol 17 gm 12/15/19 22:00 12/18/19 21:46 Miralax (For Daily Use) - PO 17 gm BID [facility] Administration Pregabalin 150 mg 12/13/19 10:00 12/18/19 11:00 Lyrica - PO Not Given DAILY [facility] Sertraline HCl 50 mg 12/13/19 10:00 12/18/19 14:26 Zoloft - PO 50 mg DAILY [facility] Administration Simethicone 80 mg 12/13/19 09:39 12/19/19 02:18 Mylicon - PO 80 mg Q4H PRN Administration DYSPEPSIA Hospitalist Encounter Outcome: FUA xray image reviewed- gas pattern, distended loops noted, awaiting official report
[2019-12-19] MEDS ORDERED: PT OWN MED DRAWER 7, Y5N ONE ×2 (05:57→13:20)
[2019-12-19] MEDS: INSULIN SLIDING SCALE (NOVOLOG) 1 VIAL SQ SCH ×4 (06:04→22:22)
[2019-12-19] MEDS: HEPARIN NA (PORCINE) 5,000 UNITS/ML 1ML VIAL SQ SCH ×3 (06:08→22:27)
[2019-12-19] MEDS: DOCUSATE SODIUM 100 MG CAPSULE (FP) PO SCH ×3 (06:08→22:24)
[2019-12-19] MEDS: KETOROLAC TROMETHAMINE 30 MG/1 ML VIAL IVPUSH PRN ×2 (06:10→22:28)
[2019-12-19] MEDS: BACLOFEN 10 MG TABLET (FP) PO SCH ×3 (06:14→22:22)
[2019-12-19] MEDS ORDERED: SODIUM PHOSPHATE/NA BIPHOS 133 ML ENEMA PR ONE (08:19)
--- NOTE | 2019-12-19 08:19 | PN ---
Progress Note, Physician Chief Complaint: AWAKE ALERT C/O INABILITY TO DEFECATE "FEELS HIS STOMACH RUMBLING" NO FEVER OR CHILLS NO CHEST PAIN - Current Medication List Current Medications: Active Medications Acetaminophen (Ofirmev Injection -) 1,000 mg IVPB Q6H PRN PRN Reason: PAIN LEVEL 6-10 Stop: 12/20/19 01:48 Last Admin: 12/19/19 02:07 Dose: 1,000 mg Al Hydroxide/Mg Hydroxide (Mylanta Oral Suspension -) 30 ml PO Q6H PRN PRN Reason: DYSPEPSIA Last Admin: 12/17/19 13:49 Dose: 30 ml Atorvastatin Calcium (Lipitor -) 20 mg PO HS [facility] Last Admin: 12/18/19 21:38 Dose: 20 mg Baclofen (Lioresal -) 10 mg PO TID [facility] Last Admin: 12/19/19 06:14 Dose: 10 mg Bisacodyl (Dulcolax Suppository -) 10 mg RC DAILY PRN PRN Reason: CONSTIPATION Last Admin: 12/18/19 20:00 Dose: 10 mg Brimonidine Tartrate (Alphagan 0.2% -) 1 drop OU BID [facility] Last Admin: 12/18/19 21:45 Dose: 1 drop Calcium Carbonate/Cholecalciferol (Os-Wilbur 500+D -) 2 tab PO DAILY [facility] Last Admin: 12/18/19 14:25 Dose: 2 tab Diphenhydramine HCl (Benadryl -) 25 mg PO Q6H PRN PRN Reason: FOR ITCHING Last Admin: 12/16/19 00:40 Dose: 25 mg Diphenhydramine HCl (Benadryl Injection -) 25 mg IVPUSH ONCE PRN PRN Reason: FOR ITCHING Last Admin: 12/12/19 23:01 Dose: 25 mg Docusate Sodium (Colace -) 100 mg PO TID [facility] Last Admin: 12/19/19 06:08 Dose: 100 mg Ferrous Sulfate (Feosol -) 325 mg PO DAILY [facility] Last Admin: 12/18/19 14:26 Dose: 325 mg Folic Acid (Folic Acid -) 1 mg PO DAILY [facility] Last Admin: 12/18/19 14:26 Dose: 1 mg Heparin Sodium (Porcine) (Heparin -) 5,000 unit SQ Q8H [facility] Last Admin: 12/19/19 06:08 Dose: 5,000 unit Potassium Chloride/Dextrose/Sod Cl (D5-1/2ns+10 Meq Kcl -) 10 meq in 1,000 mls @ 55 mls/hr IV ASDIR [facility] Last Admin: 12/18/19 16:34 Dose: 55 mls/hr Insulin Aspart (Novolog Vial Sliding Scale -) 1 vial SQ ACHS [facility]; Protocol Last Admin: 12/19/19 06:04 Dose: Not Given Ketorolac Tromethamine (Toradol Injection -) 30 mg IVPUSH Q6H PRN PRN Reason: PAIN LEVEL 6-10 Stop: 12/23/19 08:23 Last Admin: 12/19/19 06:10 Dose: 30 mg Latanoprost (Xalatan 0.005% Eye Drops -) 1 drop OD HS [facility] Last Admin: 12/18/19 21:45 Dose: 1 drop Loratadine (Claritin -) 10 mg PO DAILY [facility] Last Admin: 12/18/19 14:27 Dose: 10 mg Losartan Potassium (Cozaar -) 100 mg PO DAILY [facility] Last Admin: 12/18/19 14:28 Dose: 100 mg Metoprolol Succinate (Toprol Xl -) 50 mg PO DAILY [facility] Last Admin: 12/18/19 14:27 Dose: 50 mg Naloxone HCl (Narcan -) 0.4 mg IVPUSH ONCE PRN PRN Reason: Sedation Ondansetron HCl (Zofran Injection) 4 mg IVPUSH Q6H PRN PRN Reason: NAUSEA Last Admin: 12/14/19 01:36 Dose: 4 mg Oxycodone HCl (Oxycontin -) 10 mg PO BID [facility] Last Admin: 12/18/19 21:46 Dose: Not Given Pantoprazole Sodium (Protonix Iv) 40 mg IVPUSH BID [facility] Last Admin: 12/18/19 21:46 Dose: 40 mg Polyethylene Glycol (Miralax (For Daily Use) -) 17 gm PO BID [facility] Last Admin: 12/18/19 21:46 Dose: 17 gm Pregabalin (Lyrica -) 150 mg PO DAILY [facility] Last Admin: 12/18/19 11:00 Dose: Not Given Sertraline HCl (Zoloft -) 50 mg PO DAILY [facility] Last Admin: 12/18/19 14:26 Dose: 50 mg Simethicone (Mylicon -) 80 mg PO Q4H PRN PRN Reason: DYSPEPSIA Last Admin: 12/19/19 02:18 Dose: 80 mg - Objective Vital Signs: Vital Signs Temperature 98.5 F 12/19/19 05:45 Pulse Rate 93 H 12/19/19 05:45 Respiratory Rate 18 12/19/19 05:45 Blood Pressure 152/88 12/19/19 06:30 O2 Sat by Pulse Oximetry (%) 98 12/18/19 21:00 Constitutional: Yes: Mild Distress Cardiovascular: Yes: Regular Rate and Rhythm Respiratory: Yes: CTA Bilaterally Gastrointestinal: Yes: Normal Bowel Sounds, Soft Genitourinary: Yes: WNL Musculoskeletal: Yes: Back Pain Edema: No Wound/Incision: Yes: Clean/Dry Neurological: Yes: Pre-Existing Deficit Labs: CBC, BMP 12/18/19 06:30 12/18/19 06:00 Problem List - Problems (1) Thoracic radiculopathy due to degenerative joint disease of spine Code(s): M47.24 - OTHER SPONDYLOSIS WITH RADICULOPATHY, THORACIC REGION (2) S/P spinal surgery Code(s): Z98.890 - OTHER SPECIFIED POSTPROCEDURAL STATES (3) Abdominal pain Code(s): R10.9 - UNSPECIFIED ABDOMINAL PAIN (4) DJD (degenerative joint disease) Code(s): M19.90 - UNSPECIFIED OSTEOARTHRITIS, UNSPECIFIED SITE Qualifiers: Osteoarthritis location: spine Spinal region: lumbar Spinal osteoarthritis complication: with myelopathy Qualified Code(s): M47.16 - Other spondylosis with myelopathy, lumbar region (5) Diabetes Code(s): E11.9 - TYPE 2 DIABETES MELLITUS WITHOUT COMPLICATIONS Qualifiers: Diabetes mellitus type: type 2 Diabetes mellitus halfway insulin use: with intermediate designer use Diabetes mellitus complication status: with unspecified complications (6) GERD (gastroesophageal reflux disease) Code(s): K21.9 - GASTRO-ESOPHAGEAL REFLUX DISEASE WITHOUT ESOPHAGITIS Qualifiers: Esophagitis presence: without esophagitis Qualified Code(s): K21.9 - Gastro -esophageal reflux disease without esophagitis (7) HLD (hyperlipidemia) Code(s): E78.5 - HYPERLIPIDEMIA, UNSPECIFIED (8) HTN (hypertension) Code(s): I10 - ESSENTIAL (PRIMARY) HYPERTENSION Qualifiers: Hypertension type: essential hypertension Qualified Code(s): I10 - Essential (primary) hypertension (9) History of lumbar fusion Code(s): Z98.1 - ARTHRODESIS STATUS (10) Thoracic spinal stenosis Code(s): M48.04 - SPINAL STENOSIS, THORACIC REGION (11) Ileus, postoperative Code(s): K91.89 - OTH POSTPROCEDURAL COMPLICATIONS AND DISORDERS OF DGSTV SYS; K56.7 - ILEUS, UNSPECIFIED (12) Anemia Code(s): D64.9 - ANEMIA, UNSPECIFIED (13) Ascending aorta dilatation Code(s): I77.810 - THORACIC AORTIC ECTASIA Assessment/Plan SURGICAL DRAIN REMOVED ORDERING FLEET ENEMA STAT STILL NPO ABD XRAY SHOWS PARTIAL RESOLUTION OF ILEUS 12/19 OOB TO CHAIR DVT PROPHYLAXIS IVF START CLEAR DIET AFTER GI CLEARS HIM TO EAT LABS AND NOTES REVIEWED
[2019-12-19] MEDS: metoPROLOL SUCCINATE 25 MG TAB.SR.24H (FP) PO SCH (09:17)
[2019-12-19] MEDS: LOSARTAN POTASSIUM 50 MG TABLET (FP) PO SCH (09:18)
[2019-12-19] MEDS: FOLIC ACID 1 MG TABLET (FP) PO SCH (09:18)
[2019-12-19] MEDS: LORATADINE 10 MG TABLET PO SCH (09:18)
[2019-12-19] MEDS: CALCIUM 500MG/VIT-D 200 UNITS COMBO TABLET (FP) PO SCH (09:18)
[2019-12-19] MEDS: PREGABALIN 75 MG CAPSULE PO SCH (09:19)
[2019-12-19] MEDS: POLYETHYLENE GLYCOL 3350 119 GM BTL PO SCH ×2 (09:19→22:24)
[2019-12-19] MEDS: PANTOPRAZOLE SODIUM 40 MG VIAL IVPUSH SCH (09:19)
[2019-12-19] MEDS: BRIMONIDINE TARTRATE 0.2% OPHTHALMIC 5 ML BOTTLE OU SCH ×2 (09:19→22:27)
[2019-12-19] MEDS: FERROUS SO4 325 MG TABLET (FP) PO SCH (09:19)
[2019-12-19] MEDS: SERTRALINE HCL 50 MG TABLET (FP) PO SCH (09:19)
--- NOTE | 2019-12-19 09:22 | PN ---
Progress Note (short form) - Note Progress Note: POD #7 No acute events per RN notes. Patient cont to c/o epigastric pain and pressure. He states that he feels like he has to move his bowels and is requesting an enema this morning. He is still NPO for ileus. He has been ambulating with TLSO and PT. Patient is Passing flatus and Having bm's (liquid stool) He Denies n/v/f/c, CP, palpitations, diaphoresis. Vital Signs Temp 98.5 F 12/19/19 08:33 Pulse 95 H 12/19/19 08:33 Resp 20 12/19/19 08:33 BP 156/94 12/19/19 08:33 Pulse Ox 100 12/19/19 08:33 Intake & Output 12/18/19 12/18/19 12/19/19 11:59 23:59 11:59 Intake Total 1144 555 Output Total 80 1250 500 Balance -80 -106 55 Intake: IV 734 395 D5-1/2NS+10 MEQ KCL - 10 294 meq In 1,000 ml @ 42 mls/ hr IV ASDIR [facility] Rx#: [id number] D5-1/2NS+10 MEQ KCL - 10 440 385 meq In 1,000 ml @ 55 mls/ hr IV ASDIR [facility] Rx#: [id number] LAC #20 12/18/19 10 IVPB 50 100 Oral 360 60 Output: Drainage 80 Right Back 80 Urine 1250 500 Void 1250 500 Other: Voiding Method Bedside Commode Urinal Urinal # Unmeasured Voids Void 1 Bowel Movement No No No # Bowel Movements 1 CBC, BMP 12/18/19 06:30 12/18/19 06:00 PE: Gen: A&Ox3, NAD ABD: soft. + bs in all quadrants. minimal TTP in epigastric area. rebound or rigidity, no masses or lesions. Back: Dressing taken down on rounds and wound inspected: incision c/d/i with no evidence of tracking erythema, edema, collection or active d/c. drain osotomy clean and dry with no active d/c. Motor: GMNVI in all extremities. 5/5 dorsi/plantar flexion. b/l LE compartments soft, supple and non-tender to palpation with +2 DP pulses. Problem List - Problems (1) Ileus, postoperative Assessment/Plan: POD #7 T5-T11 costovertebral/tranpedicular decompression with osteotomies and arthrodesis. T5-T11 posterior fusion with pedicle screws. Post op ileus resolving. -ABD XRAY SHOWS PARTIAL RESOLUTION OF ILEUS / -Enema this morning -diet per GI -OOB with TLSO, encourage aggressive ambulation -OOB to chair for meals -Pain meds as ordered, conservative on narcotics -continue bowl regime -d/c planning for Rehab Evaluation and plan discussed with Dr Ravi Code(s): K91.89 - OTH POSTPROCEDURAL COMPLICATIONS AND DISORDERS OF DGSTV SYS; K56.7 - ILEUS, UNSPECIFIED (2) S/P spinal surgery Code(s): Z98.890 - OTHER SPECIFIED POSTPROCEDURAL STATES (3) History of lumbar fusion Code(s): Z98.1 - ARTHRODESIS STATUS
--- NOTE | 2019-12-19 11:51 | PN ---
Progress Note, Physician History of Present Illness: pulmonary alert,oob-chair,-cp,-sob - Current Medication List Current Medications: Active Medications Acetaminophen (Ofirmev Injection -) 1,000 mg IVPB Q6H PRN PRN Reason: PAIN LEVEL 6-10 Stop: 12/20/19 01:48 Last Admin: 12/19/19 02:07 Dose: 1,000 mg Al Hydroxide/Mg Hydroxide (Mylanta Oral Suspension -) 30 ml PO Q6H PRN PRN Reason: DYSPEPSIA Last Admin: 12/17/19 13:49 Dose: 30 ml Atorvastatin Calcium (Lipitor -) 20 mg PO HS [facility] Last Admin: 12/18/19 21:38 Dose: 20 mg Baclofen (Lioresal -) 10 mg PO TID [facility] Last Admin: 12/19/19 06:14 Dose: 10 mg Bisacodyl (Dulcolax Suppository -) 10 mg RC DAILY PRN PRN Reason: CONSTIPATION Last Admin: 12/18/19 20:00 Dose: 10 mg Brimonidine Tartrate (Alphagan 0.2% -) 1 drop OU BID [facility] Last Admin: 12/19/19 09:19 Dose: 1 drop Calcium Carbonate/Cholecalciferol (Os-Wilbur 500+D -) 2 tab PO DAILY [facility] Last Admin: 12/19/19 09:18 Dose: Not Given Diphenhydramine HCl (Benadryl -) 25 mg PO Q6H PRN PRN Reason: FOR ITCHING Last Admin: 12/16/19 00:40 Dose: 25 mg Docusate Sodium (Colace -) 100 mg PO TID [facility] Last Admin: 12/19/19 06:08 Dose: 100 mg Ferrous Sulfate (Feosol -) 325 mg PO DAILY [facility] Last Admin: 12/19/19 09:19 Dose: 325 mg Folic Acid (Folic Acid -) 1 mg PO DAILY [facility] Last Admin: 12/19/19 09:18 Dose: Not Given Heparin Sodium (Porcine) (Heparin -) 5,000 unit SQ Q8H [facility] Last Admin: 12/19/19 06:08 Dose: 5,000 unit Potassium Chloride/Dextrose/Sod Cl (D5-1/2ns+10 Meq Kcl -) 10 meq in 1,000 mls @ 55 mls/hr IV ASDIR [facility] Last Admin: 12/18/19 16:34 Dose: 55 mls/hr Insulin Aspart (Novolog Vial Sliding Scale -) 1 vial SQ ACHS [facility]; Protocol Last Admin: 12/19/19 06:04 Dose: Not Given Ketorolac Tromethamine (Toradol Injection -) 30 mg IVPUSH Q6H PRN PRN Reason: PAIN LEVEL 6-10 Stop: 12/23/19 08:23 Last Admin: 12/19/19 06:10 Dose: 30 mg Latanoprost (Xalatan 0.005% Eye Drops -) 1 drop OD HS [facility] Last Admin: 12/18/19 21:45 Dose: 1 drop Loratadine (Claritin -) 10 mg PO DAILY [facility] Last Admin: 12/19/19 09:18 Dose: Not Given Losartan Potassium (Cozaar -) 100 mg PO DAILY [facility] Last Admin: 12/19/19 09:18 Dose: 100 mg Metoprolol Succinate (Toprol Xl -) 50 mg PO DAILY [facility] Last Admin: 12/19/19 09:17 Dose: 50 mg Ondansetron HCl (Zofran Injection) 4 mg IVPUSH Q6H PRN PRN Reason: NAUSEA Last Admin: 12/14/19 01:36 Dose: 4 mg Pantoprazole Sodium (Protonix Iv) 40 mg IVPUSH BID [facility] Last Admin: 12/19/19 09:19 Dose: 40 mg Polyethylene Glycol (Miralax (For Daily Use) -) 17 gm PO BID [facility] Last Admin: 12/19/19 09:19 Dose: 17 gm Pregabalin (Lyrica -) 150 mg PO DAILY [facility] Last Admin: 12/19/19 09:19 Dose: 150 mg Sertraline HCl (Zoloft -) 50 mg PO DAILY [facility] Last Admin: 12/19/19 09:19 Dose: 50 mg Simethicone (Mylicon -) 80 mg PO Q4H PRN PRN Reason: DYSPEPSIA Last Admin: 12/19/19 02:18 Dose: 80 mg - Objective Vital Signs: Vital Signs Temperature 98.5 F 12/19/19 08:33 Pulse Rate 95 H 12/19/19 08:33 Respiratory Rate 20 12/19/19 08:33 Blood Pressure 156/94 12/19/19 08:33 O2 Sat by Pulse Oximetry (%) 100 02/18/20 08:33 Constitutional: Yes: Well Nourished, Calm Eyes: Yes: WNL HENT: Yes: WNL Neck: Yes: WNL Cardiovascular: Yes: Regular Rate and Rhythm, S1, S2 Respiratory: Yes: Diminished Gastrointestinal: Yes: Normal Bowel Sounds, Soft Extremities: Yes: WNL Edema: No Labs: Problem List - Problems (1) S/P spinal surgery Code(s): Z98.890 - OTHER SPECIFIED POSTPROCEDURAL STATES (2) Thoracic radiculopathy due to degenerative joint disease of spine Code(s): M47.24 - OTHER SPONDYLOSIS WITH RADICULOPATHY, THORACIC REGION (3) GERD (gastroesophageal reflux disease) Code(s): K21.9 - GASTRO-ESOPHAGEAL REFLUX DISEASE WITHOUT ESOPHAGITIS Qualifiers: Esophagitis presence: without esophagitis Qualified Code(s): K21.9 - Gastro -esophageal reflux disease without esophagitis (4) HLD (hyperlipidemia) Code(s): E78.5 - HYPERLIPIDEMIA, UNSPECIFIED (5) HTN (hypertension) Code(s): I10 - ESSENTIAL (PRIMARY) HYPERTENSION Qualifiers: Hypertension type: essential hypertension Qualified Code(s): I10 - Essential (primary) hypertension (6) Thoracic aortic aneurysm Code(s): I71.2 - THORACIC AORTIC ANEURYSM, WITHOUT RUPTURE (7) Thoracic spinal stenosis Code(s): M48.04 - SPINAL STENOSIS, THORACIC REGION (8) Chest pain Code(s): R07.9 - CHEST PAIN, UNSPECIFIED (9) Dyspnea Code(s): R06.00 - DYSPNEA, UNSPECIFIED (10) Fever Code(s): R50.9 - FEVER, UNSPECIFIED (11) Anemia Code(s): D64.9 - ANEMIA, UNSPECIFIED Assessment/Plan IMP CHEST PAIN LIKELY SECONDARY TO RECENT SURGERY IMPROVED S/P T5-T11 DECOMPRESSION AND POSTERIOR FUSION NIDDM HTN HLD LEFT EYE GLAUCOMA H/O THORACIC AORTIC ANEURYSM FEVER ANEMIA PLAN ANALGESICS INCENTIVE SPIROMETER NASAL O2 NEEDED DVT PROPHYLAXIS MONITOR LYTES,H+H NORMAL TRANSFUSION THRESHOLD PT DR BYNUM Problem List - Problems (1) S/P spinal surgery Code(s): Z98.890 - OTHER SPECIFIED POSTPROCEDURAL STATES (2) Thoracic radiculopathy due to degenerative joint disease of spine Code(s): M47.24 - OTHER SPONDYLOSIS WITH RADICULOPATHY, THORACIC REGION (3) GERD (gastroesophageal reflux disease) Code(s): K21.9 - GASTRO-ESOPHAGEAL REFLUX DISEASE WITHOUT ESOPHAGITIS Qualifiers: Esophagitis presence: without esophagitis Qualified Code(s): K21.9 - Gastro -esophageal reflux disease without esophagitis (4) HLD (hyperlipidemia) Code(s): E78.5 - HYPERLIPIDEMIA, UNSPECIFIED (5) HTN (hypertension) Code(s): I10 - ESSENTIAL (PRIMARY) HYPERTENSION Qualifiers: Hypertension type: essential hypertension Qualified Code(s): I10 - Essential (primary) hypertension (6) Thoracic aortic aneurysm Code(s): I71.2 - THORACIC AORTIC ANEURYSM, WITHOUT RUPTURE (7) Thoracic spinal stenosis Code(s): M48.04 - SPINAL STENOSIS, THORACIC REGION (8) Chest pain Code(s): R07.9 - CHEST PAIN, UNSPECIFIED (9) Dyspnea Code(s): R06.00 - DYSPNEA, UNSPECIFIED (10) Fever Code(s): R50.9 - FEVER, UNSPECIFIED (11) Anemia Code(s): D64.9 - ANEMIA, UNSPECIFIED
[2019-12-19] MEDS ORDERED: ACETAMINOPHEN 500 MG TABLET (FP) PO PRN (14:41)
--- NOTE | 2019-12-19 15:17 | PN ---
Progress Note, Physician History of Present Illness: Pt seen and examined at bedside. He is awake and alert. He denies abdominal pain. - Current Medication List Current Medications: Active Medications Acetaminophen (Tylenol -) 1,000 mg PO Q6H PRN PRN Reason: PAIN LEVEL 6-10 Al Hydroxide/Mg Hydroxide (Mylanta Oral Suspension -) 30 ml PO Q6H PRN PRN Reason: DYSPEPSIA Last Admin: 12/17/19 13:49 Dose: 30 ml Atorvastatin Calcium (Lipitor -) 20 mg PO HS [facility] Last Admin: 12/18/19 21:38 Dose: 20 mg Baclofen (Lioresal -) 10 mg PO TID [facility] Last Admin: 12/19/19 13:28 Dose: 10 mg Bisacodyl (Dulcolax Suppository -) 10 mg RC DAILY PRN PRN Reason: CONSTIPATION Last Admin: 12/18/19 20:00 Dose: 10 mg Brimonidine Tartrate (Alphagan 0.2% -) 1 drop OU BID [facility] Last Admin: 12/19/19 09:19 Dose: 1 drop Calcium Carbonate/Cholecalciferol (Os-Wilbur 500+D -) 2 tab PO DAILY [facility] Last Admin: 12/19/19 09:18 Dose: Not Given Diphenhydramine HCl (Benadryl -) 25 mg PO Q6H PRN PRN Reason: FOR ITCHING Last Admin: 12/16/19 00:40 Dose: 25 mg Docusate Sodium (Colace -) 100 mg PO TID [facility] Last Admin: 12/19/19 13:28 Dose: 100 mg Ferrous Sulfate (Feosol -) 325 mg PO DAILY [facility] Last Admin: 12/19/19 09:19 Dose: 325 mg Folic Acid (Folic Acid -) 1 mg PO DAILY [facility] Last Admin: 12/19/19 09:18 Dose: Not Given Heparin Sodium (Porcine) (Heparin -) 5,000 unit SQ Q8H [facility] Last Admin: 12/19/19 13:28 Dose: 5,000 unit Potassium Chloride/Dextrose/Sod Cl (D5-1/2ns+10 Meq Kcl -) 10 meq in 1,000 mls @ 55 mls/hr IV ASDIR [facility] Last Admin: 12/18/19 16:34 Dose: 55 mls/hr Insulin Aspart (Novolog Vial Sliding Scale -) 1 vial SQ ACHS [facility]; Protocol Last Admin: 12/19/19 11:53 Dose: Not Given Ketorolac Tromethamine (Toradol Injection -) 30 mg IVPUSH Q6H PRN PRN Reason: PAIN LEVEL 6-10 Stop: 12/23/19 08:23 Last Admin: 12/19/19 06:10 Dose: 30 mg Latanoprost (Xalatan 0.005% Eye Drops -) 1 drop OD HS [facility] Last Admin: 12/18/19 21:45 Dose: 1 drop Loratadine (Claritin -) 10 mg PO DAILY [facility] Last Admin: 12/19/19 09:18 Dose: Not Given Losartan Potassium (Cozaar -) 100 mg PO DAILY [facility] Last Admin: 12/19/19 09:18 Dose: 100 mg Metoprolol Succinate (Toprol Xl -) 50 mg PO DAILY [facility] Last Admin: 12/19/19 09:17 Dose: 50 mg Ondansetron HCl (Zofran Injection) 4 mg IVPUSH Q6H PRN PRN Reason: NAUSEA Last Admin: 12/14/19 01:36 Dose: 4 mg Pantoprazole Sodium (Protonix Iv) 40 mg IVPUSH BID [facility] Last Admin: 12/19/19 09:19 Dose: 40 mg Polyethylene Glycol (Miralax (For Daily Use) -) 17 gm PO BID [facility] Last Admin: 12/19/19 09:19 Dose: 17 gm Pregabalin (Lyrica -) 150 mg PO DAILY [facility] Last Admin: 12/19/19 09:19 Dose: 150 mg Sertraline HCl (Zoloft -) 50 mg PO DAILY [facility] Last Admin: 12/19/19 09:19 Dose: 50 mg Simethicone (Mylicon -) 80 mg PO Q4H PRN PRN Reason: DYSPEPSIA Last Admin: 12/19/19 02:18 Dose: 80 mg - Objective Vital Signs: Vital Signs Temperature 97.7 F 12/19/19 14:00 Pulse Rate 88 12/19/19 14:00 Respiratory Rate 20 12/19/19 14:00 Blood Pressure 157/88 12/19/19 14:00 O2 Sat by Pulse Oximetry (%) 100 12/19/19 08:33 Constitutional: Yes: Calm Eyes: Yes: Conjunctiva Clear HENT: Yes: Atraumatic Cardiovascular: Yes: S1, S2 Respiratory: Yes: CTA Bilaterally Gastrointestinal: Yes: Soft Genitourinary: Yes: WNL Edema: No Neurological: Yes: Oriented Psychiatric: Yes: Oriented Labs: CBC, BMP 12/18/19 06:30 12/18/19 06:00 Problem List - Problems (1) Diabetes Code(s): E11.9 - TYPE 2 DIABETES MELLITUS WITHOUT COMPLICATIONS Qualifiers: Diabetes mellitus type: type 2 Diabetes mellitus lobsterman insulin use: with lobsterman use Diabetes mellitus complication status: with unspecified complications (2) GERD (gastroesophageal reflux disease) Code(s): K21.9 - GASTRO-ESOPHAGEAL REFLUX DISEASE WITHOUT ESOPHAGITIS Qualifiers: Esophagitis presence: without esophagitis Qualified Code(s): K21.9 - Gastro -esophageal reflux disease without esophagitis (3) HLD (hyperlipidemia) Code(s): E78.5 - HYPERLIPIDEMIA, UNSPECIFIED (4) HTN (hypertension) Code(s): I10 - ESSENTIAL (PRIMARY) HYPERTENSION Qualifiers: Hypertension type: essential hypertension Qualified Code(s): I10 - Essential (primary) hypertension Assessment/Plan Current Medications Generic Name Dose Route Start Last Admin Trade Name Freq PRN Reason Stop Dose Admin Acetaminophen 1,000 mg 12/19/19 14:41 Tylenol - PO Q6H PRN PAIN LEVEL 6-10 Al Hydroxide/Mg Hydroxide 30 ml 12/13/19 09:39 12/17/19 13:49 Mylanta Oral Suspension - PO 30 ml Q6H PRN Administration DYSPEPSIA Atorvastatin Calcium 20 mg 12/12/19 22:00 12/18/19 21:38 Lipitor - PO 20 mg HS [facility] Administration Baclofen 10 mg 12/13/19 14:00 12/19/19 13:28 Lioresal - PO 10 mg TID [facility] Administration Bisacodyl 10 mg 12/15/19 13:55 12/18/19 20:00 Dulcolax Suppository - RC 10 mg DAILY PRN Administration CONSTIPATION Brimonidine Tartrate 1 drop 12/12/19 22:00 12/19/19 09:19 Alphagan 0.2% - OU 1 drop BID [facility] Administration Calcium Carbonate/Cholecalciferol 2 tab 12/13/19 13:45 12/19/19 09:18 Os-Wilbur 500+D - PO Not Given DAILY [facility] Diphenhydramine HCl 25 mg 12/12/19 14:16 12/16/19 00:40 Benadryl - PO 25 mg Q6H PRN Administration FOR ITCHING Docusate Sodium 100 mg 12/12/19 22:00 12/19/19 13:28 Colace - PO 100 mg TID [facility] Administration Ferrous Sulfate 325 mg 12/13/19 10:00 12/19/19 09:19 Feosol - PO 325 mg DAILY [facility] Administration Folic Acid 1 mg 12/13/19 10:00 12/19/19 09:18 Folic Acid - PO Not Given DAILY [facility] Heparin Sodium (Porcine) 5,000 unit 12/12/19 22:00 12/19/19 13:28 Heparin - SQ 5,000 unit Q8H [facility] Administration Potassium Chloride/Dextrose/Sod Cl 10 meq in 1,000 mls @ 55 mls/hr 12/18/19 15 :13 12/18/19 16:34 D5-1/2ns+10 Meq Kcl - IV 55 mls/hr ASDIR [facility] Administration Insulin Aspart 1 vial 12/12/19 16:30 12/19/19 11:53 Novolog Vial Sliding Scale - SQ Not Given ACHS [facility] Protocol Ketorolac Tromethamine 30 mg 12/18/19 08:24 12/19/19 06:10 Toradol Injection - IVPUSH 12/23/19 08:23 30 mg Q6H PRN Administration PAIN LEVEL 6-10 Latanoprost 1 drop 12/12/19 22:00 12/18/19 21:45 Xalatan 0.005% Eye Drops - OD 1 drop HS [facility] Administration Loratadine 10 mg 12/13/19 10:00 12/19/19 09:18 Claritin - PO Not Given DAILY [facility] Losartan Potassium 100 mg 12/13/19 10:00 12/19/19 09:18 Cozaar - PO 100 mg DAILY [facility] Administration Metoprolol Succinate 50 mg 12/17/19 10:00 12/19/19 09:17 Toprol Xl - PO 50 mg DAILY [facility] Administration Ondansetron HCl 4 mg 12/13/19 12:38 12/14/19 01:36 Zofran Injection IVPUSH 4 mg Q6H PRN Administration NAUSEA Pantoprazole Sodium 40 mg 12/16/19 10:45 12/19/19 09:19 Protonix Iv IVPUSH 40 mg BID [facility] Administration Polyethylene Glycol 17 gm 12/15/19 22:00 12/19/19 09:19 Miralax (For Daily Use) - PO 17 gm BID [facility] Administration Pregabalin 150 mg 12/13/19 10:00 12/19/19 09:19 Lyrica - PO 150 mg DAILY [facility] Administration Sertraline HCl 50 mg 12/13/19 10:00 12/19/19 09:19 Zoloft - PO 50 mg DAILY [facility] Administration Simethicone 80 mg 12/13/19 09:39 12/19/19 02:18 Mylicon - PO 80 mg Q4H PRN Administration DYSPEPSIA Impression 1. hypocalcemia with corrected low normal 2. dm 3. htn 4. s/p back surgery 5. gerd 6. mild rhabdo 7. ileus Plan - fluids while npo - check cmp and mag - GI follow up - monitor calcium levels
[2019-12-19] MEDS: D5-1/2NS+10 MEQ KCL - 10 MEQ/1,000 ML INFUS.BAG IV SCH (17:06)
--- NOTE | 2019-12-19 18:27 | PN.GI ---
GI Progress Note Subjective: Pain has improved Had large BM today Pulled out NGT overnight No N/V - Objective Vital Signs: Vital Signs Temperature 97.7 F 12/19/19 14:00 Pulse Rate 88 12/19/19 14:00 Respiratory Rate 20 12/19/19 14:00 Blood Pressure 157/88 12/19/19 14:00 O2 Sat by Pulse Oximetry (%) 100 12/19/19 08:33 Constitutional: Calm Eyes: No: Sclera Icterus Cardiovascular: Yes: Regular Rate and Rhythm Respiratory: Yes: CTA Bilaterally Gastrointestinal Inspection: No: Distention ...Auscultate: Yes: Normoactive Bowel Sounds ...Percussion: No: Tympanitic Edema: No (No LE edema) Neurological: Yes: Alert Labs: CBC, BMP 12/18/19 06:30 12/18/19 06:00 Problem List - Problems (1) Ileus, postoperative Assessment/Plan: No abdominal pain currently and having BM's Tolerating clears. advance to full liquid in AM then as tolerated Continue bowel regimen Post op care per surgery Code(s): K91.89 - OTH POSTPROCEDURAL COMPLICATIONS AND DISORDERS OF DGSTV SYS; K56.7 - ILEUS, UNSPECIFIED
[2019-12-19 20:14] VITALS: BMI 25.7
[2019-12-19] MEDS: MAG HYDROX/AL HYDROX/SIMETH 30 ML UNIT-DOSE CUP PO PRN (20:42)
[2019-12-19] MEDS: ATORVASTATIN CA 20 MG TABLET (FP) PO SCH (22:22)
[2019-12-19] MEDS: diphenhydrAMINE HCL 25 MG CAPSULE (FP) PO PRN (22:22)
[2019-12-19] MEDS: LATANOPROST 0.005% OPHTH SOLN 2.5ML BOTTLE OD SCH (22:27)
[2019-12-20] MEDS: MAG HYDROX/AL HYDROX/SIMETH 30 ML UNIT-DOSE CUP PO PRN (03:00)
[2019-12-20] MEDS: SIMETHICONE 80 MG TAB.CHEW (FP) PO PRN (04:48)
[2019-12-20] MEDS: KETOROLAC TROMETHAMINE 30 MG/1 ML VIAL IVPUSH PRN (04:48)
[2019-12-20] MEDS: BACLOFEN 10 MG TABLET (FP) PO SCH ×2 (05:51→13:16)
[2019-12-20] MEDS: DOCUSATE SODIUM 100 MG CAPSULE (FP) PO SCH ×2 (05:52→13:15)
[2019-12-20] MEDS: HEPARIN NA (PORCINE) 5,000 UNITS/ML 1ML VIAL SQ SCH ×2 (05:52→13:14)
[2019-12-20] MEDS ORDERED: FAMOTIDINE 20 MG/50 ML IVPB 20 MG/50 ML MG IVPB ONE (06:04)
[2019-12-20] MEDS: INSULIN SLIDING SCALE (NOVOLOG) 1 VIAL SQ SCH ×2 (06:05→11:43)
[2019-12-20 08:09] LABS: HEMATOCRIT 28.1 % (35.4-49); HEMOGLOBIN 9.6 GM/dL (11.7-16.9); MCH 33.8 pg (25.7-33.7); MCHC 34.4 g/dl (32.0-35.9); MEAN CELL VOLUME 98.5 fl (80-96); MEAN PLT VOLUME 8.1 fl (7.5-11.1); PLATELET COUNT 294 K/MM3 (134-434); RBC 2.85 M/mm3 (4.00-5.60); RDW 15.2 % (11.9-15.9); WHITE BLOOD COUNT 8.5 K/mm3 (4.0-10.0)
[2019-12-20 08:29] LABS: BILIRUBIN,TOTAL 0.7 mg/dL (0.2-1); BLOOD UREA NITROGEN 9.3 mg/dL (7-18); CALCIUM 8.4 mg/dL (8.5-10.1); CREATININE 0.7 mg/dL (0.55-1.3); MAGNESIUM 2.1 mg/dL (1.8-2.4); PHOSPHOROUS 2.2 mg/dL (2.5-4.9); POTASSIUM 3.7 mmol/L (3.5-5.1); TOT PROT 6.5 g/dl (6.4-8.2)
[2019-12-20 08:42] VITALS: TEMP 99.1
[2019-12-20] MEDS: metoPROLOL SUCCINATE 25 MG TAB.SR.24H (FP) PO SCH ×2 (08:43→09:07)
[2019-12-20] MEDS: CALCIUM 500MG/VIT-D 200 UNITS COMBO TABLET (FP) PO SCH (09:05)
[2019-12-20] MEDS: FERROUS SO4 325 MG TABLET (FP) PO SCH (09:06)
[2019-12-20] MEDS: FOLIC ACID 1 MG TABLET (FP) PO SCH (09:06)
[2019-12-20] MEDS: SERTRALINE HCL 50 MG TABLET (FP) PO SCH (09:06)
[2019-12-20] MEDS: LOSARTAN POTASSIUM 50 MG TABLET (FP) PO SCH (09:06)
[2019-12-20] MEDS: LORATADINE 10 MG TABLET PO SCH (09:06)
[2019-12-20] MEDS: BRIMONIDINE TARTRATE 0.2% OPHTHALMIC 5 ML BOTTLE OU SCH (09:07)
[2019-12-20] MEDS: POLYETHYLENE GLYCOL 3350 119 GM BTL PO SCH (09:09)
[2019-12-20] MEDS ORDERED: PANTOPRAZOLE 20 MG TABLET PO SCH (10:00)
--- NOTE | 2019-12-20 10:17 | DS ---
"Physical Examination Vital Signs: Vital Signs Temperature 99.1 F 12/20/19 08:41 Pulse Rate 95 H 12/20/19 08:41 Respiratory Rate 19 12/20/19 08:41 Blood Pressure 179/93 H 12/20/19 08:41 O2 Sat by Pulse Oximetry (%) 98 12/19/19 19:45 Constitutional: Yes: Mild Distress Cardiovascular: Yes: Regular Rate and Rhythm Respiratory: Yes: WNL Gastrointestinal: Yes: Normal Bowel Sounds, Soft Renal/: Yes: WNL Musculoskeletal: Yes: Back Pain Edema: No Peripheral Pulses WNL: Yes Wound/Incision: Yes: Dressing Dry and Intact Neurological: Yes: Weakness ...Motor Strength: LLE, RLE Psychiatric: Yes: WNL Labs: CBC, BMP 12/20/19 06:00 12/20/19 06:00 Discharge Summary Problems reviewed: Yes Reason For Visit: THORACIC INSTABILITY Current Active Problems Abdominal pain (Acute) Anemia (Acute) Ascending aorta dilatation (Acute) Chest pain (Acute) Dyspnea (Acute) Fever (Acute) Ileus, postoperative (Acute) Postoperative fever (Acute) S/P spinal surgery (Acute) Thoracic radiculopathy due to degenerative joint disease of spine (Acute) Procedures: Principal: thoracic spine surgery Hospital Course: ADMITTED FOR ELECTIVE THORACIC SPINE SURGERY REPAIR DEVELOPED ABDOMINAL PAIN WITH ILEUS, NPO ON IVF STOPPED OPIOD PAIN RELIEF AND THEN STARTED ON CLEAR DIET. TODAY ON FULL LIQUID DIET AND WILL RESUME FULL LIQUIDS FOR 24 HOURS THEN ADVANCE TO DIABETIC DIET. Plan of Treatment: [facility] Goals: KEEP ON FULL LIQUID DIET THEN ADVANCE IN 24 HOURS 12/21/19 TO DIABETIC DIET NEEDS PARTH BRACE WITH PT Condition: Stable - Instructions Diet, Activity, Other Instructions: Post Operative Instructions Physical Activity Resume your normal everyday activity as tolerated. No heavy lifting or exercise until seen by your surgeon. You may walk unlimited amounts and climb stairs. You may resume driving the car when you feel safe and comfortable behind the wheel and you are no longer wearing your brace. Do not operate a vehicle while taking narcotic medication. Brace Wear your TLSO brace at all times when out of bed except for when showering. Wound Care Keep your incision clean, dry and covered at all times. Apply an occlusive dressing (Saran wrap or Tegaderm) when showering to avoid getting your incision wet. Do not submerge incision or apply ointments or creams. The lazarus will be removed in the office in 10-14 days post-op. Diet There are no dietary restrictions. Eat healthy, high-fiber foods. Drink 6-8 glasses of liquid each day. This will assist in keeping your bowels regular. Pain Management You may take Tylenol or acetaminophen. Any pain prescription medication ordered should be taken as prescribed for moderate to severe pain. Avoid any ibuprofen (Motrin, Advil, Aleve, Toradol, etc) for 3 months unless otherwise discussed with your surgeon. Call Dr French for any of the following: Severe pain not relieved by medication Fever of 101 or higher Excessive bleeding or drainage on dressing Inability to urinate Any chest pain or shortness of breath, seek Emergency Care. Call the office to confirm a post-operative appointment for 2-3 weeks post-op Lj Ravi MD [facility] [address] [place] [address] [facility] CLINICAL INFORMATICIST: This report was requested by: Wili Mcclelland | Reference #: [id number] 11/17/2019 Oxycodone hcl 10 mg / 90 tablets / Feliciano Alonzo MD Disposition: ALF FACILITY - Home Medications Comprehensive Discharge Medication List: Ambulatory Orders Bimatoprost [Lumigan] 1 drop OD HS 12/13/15 Metoprolol Succinate [Toprol XL -] 1 tab PO DAILY 12/13/15 Atorvastatin Ca [Lipitor] 20 mg PO HS tablet 12/26/15 Aspirin [ASA -] 81 mg PO DAILY 05/06/17 Insulin (Novolog 70/30) [Novolog Mix 70/30 Flexpen -] 60 units SQ BID 05/06/17 Sertraline HCl 50 mg PO DAILY 05/06/17 Cetirizine HCl [Zyrtec -] 10 mg PO DAILY 01/23/19 Furosemide 20 mg PO DAILY 01/23/19 Losartan Potassium 100 mg PO DAILY 01/23/19 metFORMIN HCL [Glucophage -] 1,000 mg PO BID 01/23/19 Brimonidine Tartrate [Alphagan 0.2% -] 1 drop OU BID drops 01/29/19 Pregabalin [Lyrica -] 150 mg PO DAILY 03/20/19 Baclofen 10 mg PO TID 04/10/19 Multivit-Min/FA/Lycopen/Lutein [Centrum Silver Men Tablet] 1 each PO DAILY 04/10 Omeprazole 20 mg PO DAILY 04/10/19 Dulaglutide [Trulicity] 1.5 mg SQ WEEKLY 12/11/19 Acetaminophen [Tylenol .Extra-Strength -] 1,000 mg PO Q6H PRN tablet 12/20/19 Bisacodyl Suppository [Dulcolax Suppository -] 10 mg RC DAILY PRN supp.rect Calcium 500Mg/Vit-D 200 Units [Os-Wilbur 500+D -] 2 tab PO DAILY tab 12/20/19 Diphenhydramine HCl [Benadryl Capsule -] 25 mg PO Q6H PRN capsule 12/20/19 Docusate Sodium [Colace -] 100 mg PO TID capsule 12/20/19 Ferrous Sulfate [Feosol] 325 mg PO DAILY ud 12/20/19 Folic Acid - 1 mg PO DAILY tablet 12/20/19 Heparin - 5,000 unit SQ Q8H vial 12/20/19 Insulin Sliding Scale [Novolog Vial Sliding Scale -] 1 vial SQ ACHS units 12/20 Mag Hydrox/Al Hydrox/Simeth [Mylanta Oral Suspension -] 30 ml PO Q6H PRN cup Pantoprazole Sodium [Protonix -] 20 mg PO DAILY tablet.ec 12/20/19 Polyethylene Glycol 3350 [Miralax 119 gm Btl -] 17 gm PO BID bottle 12/20/19 Simethicone [Mylicon -] 80 mg PO Q4H PRN tab.chew 12/20/19 Prescription Drug Monitoring Program (I-STOP) results: I-STOP not reviewed"
[2019-12-20] MEDS: BISACODYL 10 MG SUPP.RECT RC PRN (11:51)
[2019-12-20 11:52] VITALS: BP 154/86; PULSE 91
[2019-12-20] MEDS ORDERED: NAPH,MB-DB/K PH,MBDB POWDER PACKET PO ONE (12:42)
--- NOTE | 2019-12-20 12:46 | PN ---
Progress Note, Physician History of Present Illness: Pt seen and examined at bedside. He is awake and alert. He says he had a large bowel movement last night. he denies shortness of breath. - Current Medication List Current Medications: Active Medications Acetaminophen (Tylenol -) 1,000 mg PO Q6H PRN PRN Reason: PAIN LEVEL 6-10 Last Admin: 12/19/19 17:56 Dose: 1,000 mg Al Hydroxide/Mg Hydroxide (Mylanta Oral Suspension -) 30 ml PO Q6H PRN PRN Reason: DYSPEPSIA Last Admin: 12/20/19 03:00 Dose: 30 ml Atorvastatin Calcium (Lipitor -) 20 mg PO HS [facility] Last Admin: 12/19/19 22:22 Dose: 20 mg Baclofen (Lioresal -) 10 mg PO TID [facility] Last Admin: 12/20/19 05:51 Dose: 10 mg Bisacodyl (Dulcolax Suppository -) 10 mg RC DAILY PRN PRN Reason: CONSTIPATION Last Admin: 12/20/19 11:51 Dose: 10 mg Brimonidine Tartrate (Alphagan 0.2% -) 1 drop OU BID [facility] Last Admin: 12/20/19 09:07 Dose: 1 drop Calcium Carbonate/Cholecalciferol (Os-Wilbur 500+D -) 2 tab PO DAILY [facility] Last Admin: 12/20/19 09:05 Dose: 2 tab Diphenhydramine HCl (Benadryl -) 25 mg PO Q6H PRN PRN Reason: FOR ITCHING Last Admin: 12/19/19 22:22 Dose: 25 mg Docusate Sodium (Colace -) 100 mg PO TID [facility] Last Admin: 12/20/19 05:52 Dose: Not Given Ferrous Sulfate (Feosol -) 325 mg PO DAILY [facility] Last Admin: 12/20/19 09:06 Dose: 325 mg Folic Acid (Folic Acid -) 1 mg PO DAILY [facility] Last Admin: 12/20/19 09:06 Dose: 1 mg Heparin Sodium (Porcine) (Heparin -) 5,000 unit SQ Q8H [facility] Last Admin: 12/20/19 05:52 Dose: 5,000 unit Potassium Chloride/Dextrose/Sod Cl (D5-1/2ns+10 Meq Kcl -) 10 meq in 1,000 mls @ 55 mls/hr IV ASDIR [facility] Last Admin: 12/19/19 17:06 Dose: 55 mls/hr Insulin Aspart (Novolog Vial Sliding Scale -) 1 vial SQ ACHS [facility]; Protocol Last Admin: 12/20/19 11:43 Dose: 2 unit Ketorolac Tromethamine (Toradol Injection -) 30 mg IVPUSH Q6H PRN PRN Reason: PAIN LEVEL 6-10 Stop: 12/23/19 08:23 Last Admin: 12/20/19 04:48 Dose: 30 mg Latanoprost (Xalatan 0.005% Eye Drops -) 1 drop OD HS [facility] Last Admin: 12/19/19 22:27 Dose: 1 drop Loratadine (Claritin -) 10 mg PO DAILY [facility] Last Admin: 12/20/19 09:06 Dose: 10 mg Losartan Potassium (Cozaar -) 100 mg PO DAILY [facility] Last Admin: 12/20/19 09:06 Dose: 100 mg Metoprolol Succinate (Toprol Xl -) 50 mg PO DAILY [facility] Last Admin: 12/20/19 09:07 Dose: Not Given Ondansetron HCl (Zofran Injection) 4 mg IVPUSH Q6H PRN PRN Reason: NAUSEA Last Admin: 12/14/19 01:36 Dose: 4 mg Pantoprazole Sodium (Protonix -) 20 mg PO DAILY [facility] Last Admin: 12/20/19 09:06 Dose: 20 mg Polyethylene Glycol (Miralax (For Daily Use) -) 17 gm PO BID [facility] Last Admin: 12/20/19 09:09 Dose: 17 gm Sertraline HCl (Zoloft -) 50 mg PO DAILY [facility] Last Admin: 12/20/19 09:06 Dose: 50 mg Simethicone (Mylicon -) 80 mg PO Q4H PRN PRN Reason: DYSPEPSIA Last Admin: 12/20/19 04:48 Dose: 80 mg - Objective Vital Signs: Vital Signs Temperature 99.1 F 12/20/19 08:41 Pulse Rate 91 H 12/20/19 11:51 Respiratory Rate 12/20/19 11:51 Blood Pressure 154/86 12/20/19 11:51 O2 Sat by Pulse Oximetry (%) 99 12/20/19 09:00 Constitutional: Yes: Calm Eyes: Yes: Conjunctiva Clear HENT: Yes: Atraumatic Neck: Yes: Supple Cardiovascular: Yes: S1, S2 Respiratory: Yes: CTA Bilaterally Gastrointestinal: Yes: Soft Genitourinary: Yes: WNL Musculoskeletal: Yes: Back Pain Edema: No Neurological: Yes: Oriented Psychiatric: Yes: Oriented Labs: CBC, BMP 12/20/19 06:00 12/20/19 06:00 Problem List - Problems (1) Diabetes Code(s): E11.9 - TYPE 2 DIABETES MELLITUS WITHOUT COMPLICATIONS Qualifiers: Diabetes mellitus type: type 2 Diabetes mellitus long term care pharmacist insulin use: with group home use Diabetes mellitus complication status: with unspecified complications (2) GERD (gastroesophageal reflux disease) Code(s): K21.9 - GASTRO-ESOPHAGEAL REFLUX DISEASE WITHOUT ESOPHAGITIS Qualifiers: Esophagitis presence: without esophagitis Qualified Code(s): K21.9 - Gastro -esophageal reflux disease without esophagitis (3) HLD (hyperlipidemia) Code(s): E78.5 - HYPERLIPIDEMIA, UNSPECIFIED (4) HTN (hypertension) Code(s): I10 - ESSENTIAL (PRIMARY) HYPERTENSION Qualifiers: Hypertension type: essential hypertension Qualified Code(s): I10 - Essential (primary) hypertension Assessment/Plan Current Medications Generic Name Dose Route Start Last Admin Trade Name Freq PRN Reason Stop Dose Admin Acetaminophen 1,000 mg 12/19/19 14:41 12/19/19 17:56 Tylenol - PO 1,000 mg Q6H PRN Administration PAIN LEVEL 6-10 Al Hydroxide/Mg Hydroxide 30 ml 12/13/19 09:39 12/20/19 03:00 Mylanta Oral Suspension - PO 30 ml Q6H PRN Administration DYSPEPSIA Atorvastatin Calcium 20 mg 12/12/19 22:00 12/19/19 22:22 Lipitor - PO 20 mg HS OVI Administration Baclofen 10 mg 12/13/19 14:00 12/20/19 05:51 Lioresal - PO 10 mg TID OVI Administration Bisacodyl 10 mg 12/15/19 13:55 12/20/19 11:51 Dulcolax Suppository - RC 10 mg DAILY PRN Administration CONSTIPATION Brimonidine Tartrate 1 drop 12/12/19 22:00 12/20/19 09:07 Alphagan 0.2% - OU 1 drop BID OVI Administration Calcium Carbonate/Cholecalciferol 2 tab 12/13/19 13:45 12/20/19 09:05 Os-Wilbur 500+D - PO 2 tab DAILY OVI Administration Diphenhydramine HCl 25 mg 12/12/19 14:16 12/19/19 22:22 Benadryl - PO 25 mg Q6H PRN Administration FOR ITCHING Docusate Sodium 100 mg 12/12/19 22:00 12/20/19 05:52 Colace - PO Not Given TID OVI Ferrous Sulfate 325 mg 12/13/19 10:00 12/20/19 09:06 Feosol - PO 325 mg DAILY OVI Administration Folic Acid 1 mg 12/13/19 10:00 12/20/19 09:06 Folic Acid - PO 1 mg DAILY OVI Administration Heparin Sodium (Porcine) 5,000 unit 12/12/19 22:00 12/20/19 05:52 Heparin - SQ 5,000 unit Q8H [facility]VI Administration Potassium Chloride/Dextrose/Sod Cl 10 meq in 1,000 mls @ 55 mls/hr 12/18/19 15 :13 12/19/19 17:06 D5-1/2ns+10 Meq Kcl - IV 55 mls/hr ASDIR OVI Administration Insulin Aspart 1 vial 12/12/19 16:30 12/20/19 11:43 Novolog Vial Sliding Scale - SQ 2 unit ACHS OVI Administration Protocol Ketorolac Tromethamine 30 mg 12/18/19 08:24 12/20/19 04:48 Toradol Injection - IVPUSH 12/23/19 08:23 30 mg Q6H PRN Administration PAIN LEVEL 6-10 Latanoprost 1 drop 12/12/19 22:00 12/19/19 22:27 Xalatan 0.005% Eye Drops - OD 1 drop HS OVI Administration Loratadine 10 mg 12/13/19 10:00 12/20/19 09:06 Claritin - PO 10 mg DAILY OVI Administration Losartan Potassium 100 mg 12/13/19 10:00 12/20/19 09:06 Cozaar - PO 100 mg DAILY OVI Administration Metoprolol Succinate 50 mg 12/17/19 10:00 12/20/19 09:07 Toprol Xl - PO Not Given DAILY OVI Ondansetron HCl 4 mg 12/13/19 12:38 12/14/19 01:36 Zofran Injection IVPUSH 4 mg Q6H PRN Administration NAUSEA Pantoprazole Sodium 20 mg 12/20/19 10:00 12/20/19 09:06 Protonix - PO 20 mg DAILY OVI Administration Polyethylene Glycol 17 gm 12/15/19 22:00 12/20/19 09:09 Miralax (For Daily Use) - PO 17 gm BID OVI Administration Potassium Phos/Sodium Phos 2 packet 12/20/19 12:42 Phos-Nak Packet - PO 12/20/19 12:43 ONCE ONE Sertraline HCl 50 mg 12/13/19 10:00 12/20/19 09:06 Zoloft - PO 50 mg DAILY OVI Administration Simethicone 80 mg 12/13/19 09:39 12/20/19 04:48 Mylicon - PO 80 mg Q4H PRN Administration DYSPEPSIA Impression 1. hypocalcemia with corrected low normal 2. dm 3. htn 4. s/p back surgery 5. gerd 6. mild rhabdo 7. ileus Plan - replace phos - pt tolerating liquids - monitor lytes in rehab - avoid constipation - monitor calcium levels
[2019-12-20] MEDS ORDERED: PT OWN MED DRAWER 7, Y5N ONE (13:16)
--- NOTE | 2019-12-20 19:46 | PN ---
Progress Note (short form) - Note Progress Note: Pt seen/examined at bedside, feeling better overall though reporting heartburn and burning epigastric pain after eating. Moving bowels. On examination: Pt appear comfortable, Abd soft, mildly tender on palpation in epigatrium, non distended Labs reviewed. CBC, BMP 12/20/19 06:00 12/20/19 06:00 69yo male with post operative ileus s/p spine surgery. Improving though now with heartburn and epigastric pain after eating. -Increase PPI to 40mg daily -Antireflux measures -Diet as tolerated -Continue miralax -Monitor BMs
--- NOTE | 2019-12-21 14:16 | EKG ---
Test Reason : Blood Pressure : / mmHG Vent. Rate : 118 BPM Atrial Rate : 118 BPM P-R Int : 140 ms QRS Dur : 062 ms QT Int : 322 ms P-R-T Axes : 019 -30 011 degrees QTc Int : 451 ms POOR DATA QUALITY, INTERPRETATION MAY BE ADVERSELY AFFECTED SINUS TACHYCARDIA WITH OCCASIONAL PREMATURE VENTRICULAR COMPLEXES LEFT AXIS DEVIATION INFERIOR INFARCT , AGE UNDETERMINED ABNORMAL ECG WHEN COMPARED WITH ECG OF 13-DEC-2019 05:48, PREMATURE VENTRICULAR COMPLEXES ARE NOW PRESENT INFERIOR INFARCT IS NOW PRESENT Confirmed by CELESTE JULIAN MD ([id number]) on 12/21/2019 2:16:08 PM Referred By: Confirmed By:CELESTE JULIAN MD
--- NOTE | 2019-12-26 13:16 | SURG ---
Surgery Locomotive Firer/Fireman Note Locomotive Firer/Fireman: Chiquis Pelaez PA-C Date of Service: 12/12/19 Diagnosis: thoracic spondylosis with spinal cord compression Procedure: 1) T56 tranpedicular approach for decompression of HNP & spondylosis with removal of Posterior Longituinal ligament and osteophytes 2) T67 tranpedicular approach for decompression of HNP & spondylosis with removal of Posterior Longituinal ligament and osteophytes 3) T78 tranpedicular approach for decompression of HNP & spondylosis with removal of Posterior Longituinal ligament and osteophytes 4) T89 tranpedicular approach for decompression of HNP & spondylosis with removal of Posterior Longituinal ligament and osteophytes 5) T9-10 tranpedicular approach for decompression of HNP & spondylosis with removal of Posterior Longituinal ligament and osteophytes 6) T10-11 tranpedicular approach for decompression of HNP & spondylosis with removal of Posterior Longituinal ligament and osteophytes 7) repair of durotomy 8) fluoroscopy 9) microdissection 10) local autograft 11) Bilateral soft tissue advancement flaps(50cm) 12) T5 Posterior Osteotomy 13) T6 Posterior Osteotomy 14) T7 Posterior Osteotomy 15) T8 Posterior Osteotomy 16) T9 Posterior Osteotomy 17) T10 Posterior Osteotomy 18) T11 Posterior Osteotomy 19) Arthrodesis T56 Posterior/lateral 20) Arthrodesis T67 Posterior/lateral 21) Arthrodesis T78 Posterior/lateral 22) Arthrodesis T89 Posterior/lateral 23) Arthrodesis T9-10 Posterior/lateral 24) Arthrodesis T10-11 Posterior/lateral 25) Correction of Deformity 26) Posterior Segmental Instrumentation of T5-11 I was present for the entirety of the operative procedure. For further detail, please refer to operative report. Visit type - Case Type Case Type: Scheduled - Emergency Emergency Visit: No - New patient This patient is new to me today: Yes Date on this admission: 12/12/19
== END 2019-12-20 14:24 | DRG 454 ==
LOC: JSAMEDAYSX 06:09 → J4S 18:26
PROVIDERS: ADMIT Family Medicine; ATTEND Family Medicine
PROC: 0RG7071 Fusion of 2 to 7 Thoracic Vertebral Joints with Autologous Tissue Substitute, Posterior Approach, Posterior Column, Open Approach (ICD-10-PCS; 2019-12-12)
PROC: 01N80ZZ Release Thoracic Nerve, Open Approach (ICD-10-PCS; 2019-12-12)
PROC: 00QT0ZZ Repair Spinal Meninges, Open Approach (ICD-10-PCS; 2019-12-12)
PROC: 0JX70ZB Transfer Back Subcutaneous Tissue and Fascia with Skin and Subcutaneous Tissue, Open Approach (ICD-10-PCS; 2019-12-12)
PROC: B01BZZZ Fluoroscopy of Spinal Cord (ICD-10-PCS; 2019-12-12)
PROC: 0RG70AJ Fusion of 2 to 7 Thoracic Vertebral Joints with Interbody Fusion Device, Posterior Approach, Anterior Column, Open Approach (ICD-10-PCS; principal; 2019-12-12 08:00)
PROC: 30233N1 Transfusion of Nonautologous Red Blood Cells into Peripheral Vein, Percutaneous Approach (ICD-10-PCS; 2019-12-13)
DX: M47.24 Other spondylosis with radiculopathy, thoracic region (principal); K91.89 Other postprocedural complications and disorders of digestive system; K56.7 Ileus, unspecified; M62.82 Rhabdomyolysis; M41.9 Scoliosis, unspecified; D64.9 Anemia, unspecified; R00.0 Tachycardia, unspecified; I10 Essential (primary) hypertension; E78.5 Hyperlipidemia, unspecified; E11.9 Type 2 diabetes mellitus without complications; M21.371 Foot drop, right foot; E83.51 Hypocalcemia; M51.24 Other intervertebral disc displacement, thoracic region; I77.810 Thoracic aortic ectasia; K21.9 Gastro-esophageal reflux disease without esophagitis; R07.9 Chest pain, unspecified; R50.82 Postprocedural fever; Y83.9 Surgical procedure, unspecified as the cause of abnormal reaction of the patient, or of later complication, without mention of misadventure at the time of the procedure; H40.9 Unspecified glaucoma
CPT/HCPCS: 36415; 36430; 71045-TC-FY; 71275-TC; 72128-TC; 74018-TC-FY; 74019-TC-FY; 74177-TC; 76000-TC-FY; 80048; 80053; 81003; 82550; 82553; 82962; 83735; 84100; 84484; 85025; 85027; 86850; 86900; 86901; 86922; 87040; 87086; 93005; 93010; 94010; 94760; 97116-GP; 97162-GP; J0131; J0475; J1644; J1756; J7030; P9038; P9058; Q9967

== ENCOUNTER 2019-12-30 08:04 | Emergency (ER) | payer OTHER, BC ==
[2019-12-30 08:49] VITALS: BMI 22.8
[2019-12-30] MEDS ORDERED: SODIUM CHLORIDE 0.9% 1000 ML INFUS.BAG IV ONE (09:09)
[2019-12-30 09:34] LABS: BASO % 0.7 % (0-2.0); HEMATOCRIT 29.3 % (35.4-49); LYMPH % 33.7 % (8-40); MCH 33.6 pg (25.7-33.7); MEAN CELL VOLUME 98.7 fl (80-96); MEAN PLT VOLUME 7.1 fl (7.5-11.1); NEUT % 53.6 % (42.8-82.8); PLATELET COUNT 356 K/MM3 (134-434); RBC 2.97 M/mm3 (4.00-5.60); RDW 15.7 % (11.9-15.9); WHITE BLOOD COUNT 5.4 K/mm3 (4.0-10.0)
[2019-12-30] MEDS ORDERED: ACETAMINOPHEN 1000 MG/100 ML VIAL (NON FORMULARY) IVPB ONE (09:35)
[2019-12-30 10:23] LABS: ALBUMIN 2.8 g/dl (3.4-5.0); ALK PHOS 105 U/L (45-117); ANION GAP 7 MMOL/L (8-16); BILIRUBIN,TOTAL 0.9 mg/dL (0.2-1); BLOOD UREA NITROGEN 16.6 mg/dL (7-18); CALCIUM 8.5 mg/dL (8.5-10.1); CHLORIDE 104 mmol/L (98-107); CO2 28 mmol/L (21-32); CREATININE 0.8 mg/dL (0.55-1.3); GLUCOSE,RANDOM 141 mg/dL (74-106); POTASSIUM 4.2 mmol/L (3.5-5.1); SGOT/AST 25 U/L (15-37); SGPT/ALT 28 U/L (13-61); SODIUM 139 mmol/L (136-145)
[2019-12-30] MEDS ORDERED: ACETAMINOPHEN INJECTION 100 ML IVPB ONE (10:28)
--- NOTE | 2019-12-30 12:14 | PDOC ---
Documentation entered by Reza Lara SCRIBE, acting as scribe for Jose Blanchard MD. Jose Blanchard MD: This documentation has been prepared by the Marco magaña Daniel, SCRIBE, under my direction and personally reviewed by me in its entirety. I confirm that the documentation accurately reflects all work, treatment, procedures, and medical decision making performed by me. History of Present Illness - General Chief Complaint: Pain Stated Complaint: ABD PAIN Time Seen by Provider: 12/30/19 09:26 History Source: Patient Exam Limitations: No Limitations - History of Present Illness Initial Comments: 12/30/19 09:36 The patient is a 69 year old male with a past medical history of diabetes here today for evaluation of abdominal pain. The patient reports that his abdominal pain began 1 week ago and describes it as worse today, intermittent that became constant today, diffuse, achey, and currently a 9/10. He also notes some associated diarrhea and shortness of breath. Patient denies headache, lightheadedness. Denies fever, chills. Denies chest pain. Denies nausea, vomiting. Denies travel. Allergies: codeine, morphine Surgical history: back surgery 3 weeks ago. PCP: Kandice Sigala Past History - Past Medical History Allergies/Adverse Reactions: Allergies Allergy/AdvReac Type Severity Reaction Status Date / Time codeine Allergy Intermediate "stomach Verified 12/30/19 08:44 hurts and itchy" morphine Allergy Unknown "itchy" Verified 12/30/19 08:44 Home Medications: Ambulatory Orders Bimatoprost [Lumigan] 1 drop OD HS 12/13/15 Metoprolol Succinate [Toprol XL -] 1 tab PO DAILY 12/13/15 Atorvastatin Ca [Lipitor] 20 mg PO HS tablet 12/26/15 Aspirin [ASA -] 81 mg PO DAILY 05/06/17 Insulin (Novolog 70/30) [Novolog Mix 70/30 Flexpen -] 60 units SQ BID 05/06/17 Sertraline HCl 50 mg PO DAILY 05/06/17 Cetirizine HCl [Zyrtec -] 10 mg PO DAILY 01/23/19 Furosemide 20 mg PO DAILY 01/23/19 Losartan Potassium 100 mg PO DAILY 01/23/19 metFORMIN HCL [Glucophage -] 1,000 mg PO BID 01/23/19 Brimonidine Tartrate [Alphagan 0.2% -] 1 drop OU BID drops 01/29/19 Pregabalin [Lyrica -] 150 mg PO DAILY 03/20/19 Baclofen 10 mg PO TID 04/10/19 Multivit-Min/FA/Lycopen/Lutein [Centrum Silver Men Tablet] 1 each PO DAILY 04/10 Omeprazole 20 mg PO DAILY 04/10/19 Dulaglutide [Trulicity] 1.5 mg SQ WEEKLY 12/11/19 Acetaminophen [Tylenol .Extra-Strength -] 1,000 mg PO Q6H PRN tablet 12/20/19 Bisacodyl Suppository [Dulcolax Suppository -] 10 mg RC DAILY PRN supp.rect Calcium 500Mg/Vit-D 200 Units [Os-Wilbur 500+D -] 2 tab PO DAILY tab 12/20/19 Diphenhydramine HCl [Benadryl Capsule -] 25 mg PO Q6H PRN capsule 12/20/19 Docusate Sodium [Colace -] 100 mg PO TID capsule 12/20/19 Ferrous Sulfate [Feosol] 325 mg PO DAILY ud 12/20/19 Folic Acid - 1 mg PO DAILY tablet 12/20/19 Heparin - 5,000 unit SQ Q8H vial 12/20/19 Insulin Sliding Scale [Novolog Vial Sliding Scale -] 1 vial SQ ACHS units 12/20 Mag Hydrox/Al Hydrox/Simeth [Mylanta Oral Suspension -] 30 ml PO Q6H PRN cup Pantoprazole Sodium [Protonix -] 20 mg PO DAILY tablet.ec 12/20/19 Polyethylene Glycol 3350 [Miralax 119 gm Btl -] 17 gm PO BID bottle 12/20/19 Simethicone [Mylicon -] 80 mg PO Q4H PRN tab.chew 12/20/19 Anemia: No Asthma: No Cancer: No Cardiac Disorders: Yes ("a little hole in heart") CVA: No COPD: No CHF: No Dementia: No Diabetes: Yes (IDDM) GI Disorders: No Disorders: No HTN: Yes Hypercholesterolemia: Yes Liver Disease: No Seizures: No Thyroid Disease: No - Surgical History Cholecystectomy: Yes Neurologic Surgery: (low back and neck sx) Orthopedic Surgery: Yes (Back sx 2016) - Immunization History Td Vaccination: No TDAP Vaccination: No Immunization Up to Date: No - Psycho Social/Smoking Cessation Hx Smoking History: Never smoked Have you smoked in the past 12 months: No If you are a former smoker, when did you quit?: 30 YEARS AGO Information on smoking cessation initiated: No Hx Alcohol Use: No Drug/Substance Use Hx: No Substance Use Type: None Hx Substance Use Treatment: No Review of Systems - Review of Systems Able to Perform ROS?: Yes Comments:: 12/30/19 09:37 A complete review of 10 out of 10 review of systems is taken and is negative apart from what is previously mentioned below and in the HPI. *Physical Exam - Vital Signs Last Vital Signs Temp Pulse Resp BP Pulse Ox 97.9 F 90 18 99/63 100 12/30/19 08:13 12/30/19 08:13 12/30/19 08:13 12/30/19 08:13 12/30/19 08:13 - Physical Exam 12/30/19 09:37 Vitals: Triage vital signs reviewed General Appearance: No acute distress, well nourished, well developed Head: Atraumatic Chest Wall: Nontender Cardiac: Regular rate and rhythm, no murmurs, no rubs, no gallops Lungs: Clear to auscultation bilateral, good air movement bilaterally Abdomen: +diffuse abdominal tenderness maximal in the right lower quadrant. Soft, nondistended, normal bowel sounds Extremities: Full range of motion to all extremities, no cyanosis, clubbing, or edema Skin: Warm and dry, no rashes or lesions, no rash, no petechiae Neuro: AOX3 Psych: Normal mood, normal affect ED Treatment Course - LABORATORY CBC & Chemistry Diagram: 12/30/19 09:00 12/30/19 09:00 - Medications Given in the ED: ED Medications Discontinued Medications Generic Name Dose Route Start Last Admin Trade Name Freq PRN Reason Stop Dose Admin Sodium Chloride 1,000 ml 12/30/19 09:09 12/30/19 09:13 Normal Saline - IV 12/30/19 09:10 1,000 ml ONCE ONE Administration Medical Decision Making - Medical Decision Making 12/30/19 09:37 The patient is a 69 year old male with a past medical history of diabetes here today for evaluation of abdominal pain. 12/30/19 12:55 Several week history of abdominal pain worse today diffuse on examination Labs within normal limits no fever no white count EKG with no evidence of ischemia Interpreted by me CAT scan with no acute pathology no fever no white count status post Tylenol fluids patient feels much better differential diagnosis includes gastritis versus dyspepsia versus food intolerance patient does state at this time that he feels worse when he drinks milk We will have patient follow-up with his primary care provider this week Findings, need for follow-up and strict return instructions discussed with patient. Discharge - Discharge Information Problems reviewed: Yes Clinical Impression/Diagnosis: GERD (gastroesophageal reflux disease) Qualifiers: Esophagitis presence: esophagitis presence not specified Qualified Code(s): K21.9 - Gastro-esophageal reflux disease without esophagitis Abdominal pain Qualifiers: Abdominal location: generalized Qualified Code(s): R10.84 - Generalized abdominal pain Condition: Good Disposition: HOME - Admission No - Follow up/Referral Referrals: Kandice Sigala MD [Primary Care Provider] - - Patient Discharge Instructions Patient Printed Discharge Instructions: Acute Abdominal Pain Additional Instructions: Drink plenty of fluids. Follow-up with your doctor this week. Avoid milk based products Return to ED for any fever severe worsening abdominal pain or for any concerns. - Post Discharge Activity
--- NOTE | 2019-12-30 13:20 | EKG ---
Test Reason : Blood Pressure : / mmHG Vent. Rate : 092 BPM Atrial Rate : 092 BPM P-R Int : 178 ms QRS Dur : 070 ms QT Int : 370 ms P-R-T Axes : 033 -15 016 degrees QTc Int : 457 ms NORMAL SINUS RHYTHM NORMAL ECG WHEN COMPARED WITH ECG OF 17-DEC-2019 13:12, NO SIGNIFICANT CHANGE WAS FOUND Confirmed by DANDRE SILVA MD ([id number]) on 12/30/2019 1:20:11 PM Referred By: Confirmed By:DANDRE SILVA MD
[2019-12-30 15:15] VITALS: BP 111/78; PULSE 78; TEMP 98.6
== END 2019-12-30 15:00 | disposition home or self-care (01) ==
LOC: JER 08:04
PROC: 3E033NZ Introduction of Analgesics, Hypnotics, Sedatives into Peripheral Vein, Percutaneous Approach (ICD-10-PCS; principal; 2019-12-30)
DX: K21.9 Gastro-esophageal reflux disease without esophagitis (principal); R10.84 Generalized abdominal pain; Z88.5 Allergy status to narcotic agent; I25.10 Atherosclerotic heart disease of native coronary artery without angina pectoris; I10 Essential (primary) hypertension; E11.9 Type 2 diabetes mellitus without complications; Z79.4 Long term (current) use of insulin; E78.00 Pure hypercholesterolemia, unspecified; Z90.49 Acquired absence of other specified parts of digestive tract
CPT/HCPCS: 36415; 71045-TC-FY; 74177-TC; 80053; 83690; 84484; 85025; 93005; 93010; 96374; 99285-25; J0131; J7030

== ENCOUNTER 2020-05-12 11:15 | Emergency (ER) | payer OTHER, BC ==
[2020-05-12 11:19] VITALS: TEMP 97.7; BMI 25.7
--- NOTE | 2020-05-12 11:19 | PDOC ---
Rapid Medical Evaluation Chief Complaint: Pain Time Seen by Provider: 05/12/20 11:15 Medical Evaluation: Allergies Allergy/AdvReac Type Severity Reaction Status Date / Time codeine Allergy Intermediate "stomach Verified 12/30/19 08:44 hurts and itchy" morphine Allergy Unknown "itchy" Verified 12/30/19 08:44 05/12/20 11:18 I performed a brief in-person evaluation of this patient. Pt is a 70 y/o male with RLQ and right back pain for the last few days. He has a h/o HTN and DM. He has not taken his BP meds today. He denies any n/v/d/c. He was told to come to the ED by his primary doctor. Pertinent physical exam findings: + RLQ abdominal pain to palpation, no CVA tenderness I have ordered the following: labs, saline lock, ctap Patient to proceed to ED for further evaluation Discharge Disposition - Diagnosis RLQ abdominal pain - Referrals - Patient Instructions - Post Discharge Activity
[2020-05-12] MEDS ORDERED: SODIUM CHLORIDE 0.9% 500 ML INFUS.BAG IV ONE ×2 (11:20→12:09)
--- NOTE | 2020-05-12 11:53 | PDOC ---
History of Present Illness - General Chief Complaint: Pain Stated Complaint: PAIN Time Seen by Provider: 05/12/20 11:15 History Source: Patient Exam Limitations: No Limitations - History of Present Illness Initial Comments: 05/12/20 11:53 HPI 70 YOM with PMHx HTN, HLD, DM, ascending aortic dilation, chronic back pain with radiculopathy/neuropathy, chronic neuropathy in right fingers/hand, Thoracic radiculopathy due to degenerative joint disease of spine s/p T5-T11 costovertebral/tranpedicular decompression with osteotomies and arthrodesis, T5- T11 posterior fusion with pedicle screws on 12/12/19, cervical spondylotic myelopathy s/p C2-C7 CERVICAL SPINE SURGERY WITH CAGE SURGICAL HARDWARE, Presenting with RLQ pain x 2 days, with radiation to LLQ and lower back. Endorses chronic back pain, no new changes, no trauma, no new procedures (last in 12/2019), on chronic oxycontin. no abdominal surgeries. Denies fever, chills, chest pain, SOB, palpitation, dizziness, weakness, N, V, D, bladder and bowel problems, focal weakness/paresthesias, leg swelling/pain, rash. No sick contacts or travel. No new changes in medications. No suspicious food intake Allergies: codeine/morphine Past Medical History/PSH: HTN, HLD, DM, ascending aortic dilation, chronic back pain with radiculopathy/neuropathy, chronic neuropathy in right fingers/hand, Thoracic radiculopathy due to degenerative joint disease of spine s/p T5-T11 costovertebral/tranpedicular decompression with osteotomies and arthrodesis, T5- T11 posterior fusion with pedicle screws on 12/12/19, cervical spondylotic myelopathy s/p C2-C7 CERVICAL SPINE SURGERY WITH CAGE SURGICAL HARDWARE Social history: Lives with family. No tobacco, ETOH or drug use. Meds: as documented in EMR Family history: noncontributory PMD: Dr Feliciano Alonzo Review of systems Constitutional: no fevers or chills. No weakness HEENT: no headache or dizziness. No congestion. No visual/hearing disturbances. CVS: no cp or syncope. Resp: no sob. No cough. Gastrointestinal: + abdominal pain, no nausea, vomiting, or diarrhea. Genitourinary: no urinary sx, hematuria. MUSCULOSKELETAL: No joint pain and swelling. +chronic neck or back pain. SKIN: no redness or skin changes, no discharge, no rash. No wounds. Hematologic: no easy bruising/bleeding. NEUROLOGIC: No headache, dizziness, LOC or altered mental status. No focal weakness, numbness, +chronic tingling in fingers. Psych: no anxiety or depression Allergic/Immunologic: no allergies All other systems reviewed and negative, or as documented in HPI. Physical exam General: Well appearing, awake and alert, NAD. HEENT: NCAT, PERRL, EOMI, clear conjunctiva, anicteric, moist mucus membranes, clear oropharynx, no oral lesions.. Neck: neck supple, FROM Resp: CTAB, normal and even respirations, no respiratory distress CVS: RRR, no murmurs, 2+ peripheral pulses throughout, no peripheral edema Abdomen: soft, nondistended, +RLQ TTP, neg rovsing's and neg obturator sign, no rebound or guarding. no CVAT'; no palp hernia or masses : normal external genitalia, no scrotal or testicular tenderness, no palp h ernia Back: nontender, normal inspection and ROM MSK: no edema, NAM x4, ROM intact. No clubbing or cyanosis. normal bulk and tone. Extremities: no calf tenderness Neuro: alert, oriented appropriately; no focal neurologic deficits; chronic tingling in right fingers, speech clear. Psych: Calm and cooperative Skin: warm and well perfused, cap refill <2 sec, normal color, no rash or skin discoloration. 05/12/20 12:50 05/12/20 15:51 05/12/20 15:51 Past History - Medical History Allergies/Adverse Reactions: Allergies Allergy/AdvReac Type Severity Reaction Status Date / Time codeine Allergy Intermediate "stomach Verified 05/12/20 11:20 hurts and itchy" morphine Allergy Unknown "itchy" Verified 05/12/20 11:20 Home Medications: Ambulatory Orders Bimatoprost [Lumigan] 1 drop OD HS 12/13/15 Metoprolol Succinate [Toprol XL -] 1 tab PO DAILY 12/13/15 Atorvastatin Ca [Lipitor] 20 mg PO HS tablet 12/26/15 Aspirin [ASA -] 81 mg PO DAILY 05/06/17 Insulin (Novolog 70/30) [Novolog Mix 70/30 Flexpen -] 60 units SQ BID 05/06/17 Sertraline HCl 50 mg PO DAILY 05/06/17 Cetirizine HCl [Zyrtec -] 10 mg PO DAILY 01/23/19 Furosemide 20 mg PO DAILY 01/23/19 Losartan Potassium 100 mg PO DAILY 01/23/19 metFORMIN HCL [Glucophage -] 1,000 mg PO BID 01/23/19 Brimonidine Tartrate [Alphagan 0.2% -] 1 drop OU BID drops 01/29/19 Pregabalin [Lyrica -] 150 mg PO DAILY 03/20/19 Baclofen 10 mg PO TID 04/10/19 Multivit-Min/FA/Lycopen/Lutein [Centrum Silver Men Tablet] 1 each PO DAILY 04/10/19 Omeprazole 20 mg PO DAILY 04/10/19 Dulaglutide [Trulicity] 1.5 mg SQ WEEKLY 12/11/19 Acetaminophen [Tylenol .Extra-Strength -] 1,000 mg PO Q6H PRN tablet 12/20/19 Bisacodyl Suppository [Dulcolax Suppository -] 10 mg RC DAILY PRN supp.rect 12/20/19 Calcium 500Mg/Vit-D 200 Units [Os-Wilbur 500+D -] 2 tab PO DAILY tab 12/20/19 Diphenhydramine HCl [Benadryl Capsule -] 25 mg PO Q6H PRN capsule 12/20/19 Docusate Sodium [Colace -] 100 mg PO TID capsule 12/20/19 Ferrous Sulfate [Feosol] 325 mg PO DAILY ud 12/20/19 Folic Acid - 1 mg PO DAILY tablet 12/20/19 Heparin - 5,000 unit SQ Q8H vial 12/20/19 Insulin Sliding Scale [Novolog Vial Sliding Scale -] 1 vial SQ ACHS units 12/20/19 Mag Hydrox/Al Hydrox/Simeth [Mylanta Oral Suspension -] 30 ml PO Q6H PRN cup 12/20/19 Pantoprazole Sodium [Protonix -] 20 mg PO DAILY tablet.ec 12/20/19 Polyethylene Glycol 3350 [Miralax 119 gm Btl -] 17 gm PO BID bottle 12/20/19 Simethicone [Mylicon -] 80 mg PO Q4H PRN tab.chew 12/20/19 Anemia: No Asthma: No Cancer: No Cardiac Disorders: Yes ("a little hole in heart") CVA: No COPD: No CHF: No Dementia: No Diabetes: Yes (IDDM) GI Disorders: No Disorders: No HTN: Yes Hypercholesterolemia: Yes Liver Disease: No Seizures: No Thyroid Disease: No - Surgical History Cholecystectomy: Yes Neurologic Surgery: (low back and neck sx) Orthopedic Surgery: Yes (Back sx 2016) - Immunization History Td Vaccination: No TDAP Vaccination: No Immunization Up to Date: No - Psycho-Social/Smoking History Smoking History: Never smoked Have you smoked in the past 12 months: No If you are a former smoker, when did you quit?: 30 YEARS AGO - Substance Abuse Hx (Audit-C & DAST Scrn) How often the patient has a drink containing alcohol: Never Score: In Men: 4 or > Positive; In Women: 3 or > Positive: 0 Screen Result (Pos requires Nsg. Audit-10AR): Negative *Physical Exam - Vital Signs Last Vital Signs Temp Pulse Resp BP Pulse Ox 97.7 F 108 H 18 181/101 H 100 05/12/20 11:17 05/12/20 11:17 05/12/20 11:17 05/12/20 11:17 05/12/20 11:17 ED Treatment Course - LABORATORY CBC & Chemistry Diagram: 05/12/20 12:05 05/12/20 12:05 - RADIOLOGY Radiology Studies Ordered: Category Date Time Status ABDOMEN & PELVIS CT WITH CONTR [CT] Stat CT Scan 05/12/20 11:20 Ordered Medical Decision Making - Medical Decision Making 05/12/20 12:55 Vital Signs Temp Pulse Resp BP Pulse Ox 97.7 F 108 H 18 181/101 H 100 05/12/20 11:17 05/12/20 11:17 05/12/20 11:17 05/12/20 11:17 05/12/20 11:17 vitals reviewed, initially hypertensive tachy likely from pain no fever or chills. no systemic findings no respiratory distress/sx. DDx abdominal pain: Renal colic, biliary colic, metabolic/electrolyte derangements. GERD, PUD, esophageal spasm, pancreatitis, hepatitis, constipation, colitis, gastroenteritis, cholecystitis, UTI, pyelonephritis, ileus, SBO, medication side effect, hernia, appendicitis, diverticulitis, mesenteric ischemia. msk strain, mesenteric adenitis, psoas abscess. no GIB no peritoneal findings CT negative for acute appendicitis, there is atelectatic changes to the lungs otherwise unremarkable study. No evidence of obstruction, normal-appearing terminal ileum, stool burden normal in colon without wall thickening or signs of diverticulitis. There is postsurgical changes to his T and L-spine with hardware in place. No evidence of pancreatitis, AAA, cholecystitis, choledocholithiasis, cholangitis, mesenteric ischemia, small bowel obstruction, diverticulitis, colitis, appendicitis, CT results discussed with the patient. could be msk strain, given worsening sx with movement and turning on home oxycontin. On repeat examination prior to discharge, the patient has a soft abdomen with no peritoneal findings. The patient was able to tolerate oral intake. The patient was advised that even though there is no evidence of a surgical emergency at this time, sometimes this is not visible on CT scan or in the labs early in a disease course and that if there is additional pain they are to return for repeat evaluation. The patient stated understanding of this, has decision making capacity and is discharged in stable condition. The patient was instructed to return to the emergency department for re-evaluation in 8-12 hours and sooner if they feel worse in any way. f/u Dr Alonzo 05/12/20 14:47 05/12/20 14:48 05/12/20 15:52 Discharge - Discharge Information Problems reviewed: Yes Clinical Impression/Diagnosis: Abdominal pain Qualifiers: Abdominal location: right lower quadrant Qualified Code(s): R10.31 - Right lower quadrant pain Condition: Improved Disposition: HOME - Admission No - Follow up/Referral Referrals: Feliciano Alonzo MD, MD [Primary Care Provider] - - Patient Discharge Instructions Patient Printed Discharge Instructions: DI for Abdominal Pain-Adult Additional Instructions: your CT scan did not show appendicitis or other pathology laboratory results within normal limits, urine results also normal follow up with Dr Alonzo Please return to the emergency department immediately should you feel worse in any way or have any of the following symptoms: increasing or different abdominal pain, persistent vomiting, fevers or shaking chills. Please return to the emergency department for a recheck in 8-12 hours if the pain is persistent or worse so we can re-evaluate you and ensure that you are not developing a problem that would require surgery or hospitalization. - Post Discharge Activity Vital Signs - Vital Signs Vital signs refused: No Blood Pressure: 151/87 BP Location: Right Arm Blood Pressure position: Sitting
[2020-05-12] MEDS ORDERED: HYDROmorphone HCL CARPU-JECT 2 MG/1 ML DISP.SYRIN IVPUSH ONE (12:09)
[2020-05-12] MEDS ORDERED: HYDROmorphone HCl 2 MG/ML VIAL ONE (12:41)
[2020-05-12 12:47] LABS: BASO % 0.5 % (0-2.0); EOS % 3.1 % (0-4.5); HEMATOCRIT 36.3 % (35.4-49); HEMOGLOBIN 12.1 GM/dL (11.7-16.9); LYMPH % 39.1 % (8-40); MCH 30.9 pg (25.7-33.7); MCHC 33.3 g/dl (32.0-35.9); MEAN CELL VOLUME 92.8 fl (80-96); MEAN PLT VOLUME 7.3 fl (7.5-11.1); MONO % 8.8 % (3.8-10.2); NEUT % 48.5 % (42.8-82.8); PLATELET COUNT 187 K/MM3 (134-434); RBC 3.91 M/mm3 (4.00-5.60); WHITE BLOOD COUNT 6.6 K/mm3 (4.0-10.0)
[2020-05-12 12:55] LABS: INR 0.96 (0.83-1.09); PROTHROMBIN TIME (PATIENT) 11.3 SEC (9.7-13.0)
[2020-05-12 13:04] LABS: PH,URINE >= 9.0 (5.0-8.0); URINE APPEARANCE CLEAR; URINE BILIRUBIN NEGATIVE (NEGATIVE); URINE COLOR YELLOW; URINE GLUCOSE (UA) NEGATIVE (NEGATIVE); URINE KETONE NEGATIVE (NEGATIVE); URINE LEUK ESTERASE NEGATIVE (NEGATIVE); URINE NITRITE NEGATIVE (NEGATIVE); URINE PROTEIN NEGATIVE (NEGATIVE); URINE UROBILINOGEN 0.2 mg/dL (0.2-1.0)
[2020-05-12 13:05] LABS: ALBUMIN 4.1 g/dl (3.4-5.0); BILIRUBIN,TOTAL 0.5 mg/dL (0.2-1); BLOOD UREA NITROGEN 12.9 mg/dL (7-18); CALCIUM 9.1 mg/dL (8.5-10.1); CREATININE 0.9 mg/dL (0.55-1.3); POTASSIUM 4.2 mmol/L (3.5-5.1); TOT PROT 7.8 g/dl (6.4-8.2)
[2020-05-12 15:49] VITALS: BP 151/87
[2020-05-12 16:14] VITALS: PULSE 103
== END 2020-05-12 16:14 | disposition home or self-care (01) ==
LOC: JER 11:15
PROC: 3E033NZ Introduction of Analgesics, Hypnotics, Sedatives into Peripheral Vein, Percutaneous Approach (ICD-10-PCS; principal; 2020-05-12)
DX: R10.31 Right lower quadrant pain (principal)
CPT/HCPCS: 36415; 74177-TC; 80053; 81003; 83605; 83690; 85025; 85610; 85730; 86850; 86900; 86901; 87086; 99285-25; Q9967

== ENCOUNTER 2020-05-22 13:37 | Inpatient (IN) | payer OTHER, BC ==
--- NOTE | 2020-05-22 13:42 | PDOC ---
Rapid Medical Evaluation Time Seen by Provider: 05/22/20 13:39 Medical Evaluation: Allergies Allergy/AdvReac Type Severity Reaction Status Date / Time codeine Allergy Intermediate "stomach Verified 05/12/20 11:20 hurts and itchy" morphine Allergy Unknown "itchy" Verified 05/12/20 11:20 05/22/20 13:40 I have performed a brief in-person evaluation of this patient. The patient presents with a chief complaint of: R sided pain s/p slip and fall last night at home. Was able to get self off ground and bear weight w/ some discomfort to R hip. No head injury, LOC, dizziness, n/v. H/o HTN and DM, takes baby asa Pertinent physical exam findings:Tachy to 114, NAD I have ordered the following:R hip/ribs/cxr The patient will proceed to the ED for further evaluation. 05/22/20 13:43 Discharge Disposition - Diagnosis Hip pain Fall Qualifiers: Encounter type: initial encounter Qualified Code(s): W19.XXXA - Unspecified fall, initial encounter - Referrals - Patient Instructions - Post Discharge Activity
--- NOTE | 2020-05-22 14:36 | PDOC ---
History of Present Illness - General Chief Complaint: Injury Stated Complaint: FALL Time Seen by Provider: 05/22/20 13:39 - History of Present Illness Initial Comments: 05/22/20 14:34 70-year-old male with frequent falls at home and difficulty ambulating presents for evaluation after slip out of bed last night. He did not hit his head. He is with his who is unsure of the medications or the comorbidities he has. He complains of chest pain and right hip pain Past History - Medical History Allergies/Adverse Reactions: Allergies Allergy/AdvReac Type Severity Reaction Status Date / Time codeine Allergy Intermediate "stomach Verified 05/22/20 13:42 hurts and itchy" morphine Allergy Unknown "itchy" Verified 05/22/20 13:42 Home Medications: Ambulatory Orders Bimatoprost [Lumigan] 1 drop OD HS 12/13/15 Metoprolol Succinate [Toprol XL -] 1 tab PO DAILY 12/13/15 Atorvastatin Ca [Lipitor] 20 mg PO HS tablet 12/26/15 Aspirin [ASA -] 81 mg PO DAILY 05/06/17 Insulin (Novolog 70/30) [Novolog Mix 70/30 Flexpen -] 60 units SQ BID 05/06/17 Sertraline HCl 50 mg PO DAILY 05/06/17 Cetirizine HCl [Zyrtec -] 10 mg PO DAILY 01/23/19 Furosemide 20 mg PO DAILY 01/23/19 Losartan Potassium 100 mg PO DAILY 01/23/19 metFORMIN HCL [Glucophage -] 1,000 mg PO BID 01/23/19 Brimonidine Tartrate [Alphagan 0.2% -] 1 drop OU BID drops 01/29/19 Pregabalin [Lyrica -] 150 mg PO DAILY 03/20/19 Baclofen 10 mg PO TID 04/10/19 Multivit-Min/FA/Lycopen/Lutein [Centrum Silver Men Tablet] 1 each PO DAILY 04/10/19 Omeprazole 20 mg PO DAILY 04/10/19 Dulaglutide [Trulicity] 1.5 mg SQ WEEKLY 12/11/19 Acetaminophen [Tylenol .Extra-Strength -] 1,000 mg PO Q6H PRN tablet 12/20/19 Bisacodyl Suppository [Dulcolax Suppository -] 10 mg RC DAILY PRN supp.rect 12/20/19 Calcium 500Mg/Vit-D 200 Units [Os-Wilbur 500+D -] 2 tab PO DAILY tab 12/20/19 Diphenhydramine HCl [Benadryl Capsule -] 25 mg PO Q6H PRN capsule 12/20/19 Docusate Sodium [Colace -] 100 mg PO TID capsule 12/20/19 Ferrous Sulfate [Feosol] 325 mg PO DAILY ud 12/20/19 Folic Acid - 1 mg PO DAILY tablet 12/20/19 Heparin - 5,000 unit SQ Q8H vial 12/20/19 Insulin Sliding Scale [Novolog Vial Sliding Scale -] 1 vial SQ ACHS units 12/20/19 Mag Hydrox/Al Hydrox/Simeth [Mylanta Oral Suspension -] 30 ml PO Q6H PRN cup 12/20/19 Pantoprazole Sodium [Protonix -] 20 mg PO DAILY tablet.ec 12/20/19 Polyethylene Glycol 3350 [Miralax 119 gm Btl -] 17 gm PO BID bottle 12/20/19 Simethicone [Mylicon -] 80 mg PO Q4H PRN tab.chew 12/20/19 Anemia: No Asthma: No Cancer: No Cardiac Disorders: Yes ("a little hole in heart") CVA: No COPD: No CHF: No Dementia: No Diabetes: Yes (IDDM) GI Disorders: No Disorders: No HTN: Yes Hypercholesterolemia: Yes Liver Disease: No Seizures: No Thyroid Disease: No - Surgical History Cholecystectomy: Yes Neurologic Surgery: (low back and neck sx) Orthopedic Surgery: Yes (Back sx 2016) - Immunization History Td Vaccination: No TDAP Vaccination: No Immunization Up to Date: No - Psycho-Social/Smoking History Smoking History: Never smoked Have you smoked in the past 12 months: No If you are a former smoker, when did you quit?: 30 YEARS AGO Information on smoking cessation initiated: No - Substance Abuse Hx (Audit-C & DAST Scrn) How often the patient has a drink containing alcohol: Never Score: In Men: 4 or > Positive; In Women: 3 or > Positive: 0 Screen Result (Pos requires Nsg. Audit-10AR): Negative In the last yr the pt used illegal drug/Rx for NonMed reason: No Score: Yes response is considered Positive: 0 Screen Result (Positive result requires Nsg. DAST-10): Negative Review of Systems - Review of Systems Cardiac (ROS): Yes: Chest Pain ABD/GI: No: Nausea, Vomiting Musculoskeletal: Yes: Joint Pain *Physical Exam - Vital Signs Last Vital Signs Temp Pulse Resp BP Pulse Ox 98.6 F 114 H 19 153/85 98 05/22/20 13:41 05/22/20 13:41 05/22/20 13:41 05/22/20 13:41 05/22/20 13:41 - Physical Exam 05/22/20 14:35 Patient has difficulty time ambulating. He has no gross sensorimotor deficits however he has difficulty ambulating and standing up. General Appearance: Yes: Nourished, Appropriately Dressed. No: Apparent Distress HEENT: positive: Symmetrical Neck: positive: Supple Respiratory/Chest: positive: Normal Breath Sounds. negative: Respiratory Distress Cardiovascular: positive: S1, S2 Gastrointestinal/Abdominal: negative: Tender Medical Decision Making - Medical Decision Making 05/22/20 14:36 I will transfer this patient to the main emergency room he requires admission. I will defer laboratory work-up to the ER provider. I discussed this with emergency room attending. Discharge - Discharge Information Problems reviewed: Yes Clinical Impression/Diagnosis: Hip pain Fall Qualifiers: Encounter type: initial encounter Qualified Code(s): W19.XXXA - Unspecified fall, initial encounter - Follow up/Referral - Patient Discharge Instructions - Post Discharge Activity
--- NOTE | 2020-05-22 15:01 | PDOC ---
History of Present Illness - General Chief Complaint: Injury Stated Complaint: FALL Time Seen by Provider: 05/22/20 13:39 - History of Present Illness Initial Comments: HPI: 70yo M with PMH of DM, HTN, HLD, multiple back surgeries presenting with right side pain. Patient reports that he was getting out of bed last night when his right leg "gave out" and he fell in a sitting position onto the floor. Denies prodrome prior to fall: no dizziness, weakness, chest pain, or shortness of breath. Patient has fallen about three times in the past month. Usually ambulates with a walker. is concerned about him falling again. No fevers or chills. PCP: Dr. Alonzo ROS: Constitutional: no fever, no chills HEENT: no throat pain, no dysphagia Cardiovascular: no chest pain, no palpitations Respiratory: no cough, no shortness of breath Gastrointestinal: no abdominal pain, no nausea Genitourinary: no dysuria, no hematuria Musculoskeletal: no myalgia, no arthralgia Skin: no rash, no itching Neurologic: no headache, +fall Psych: no agitation, no anxiety PE: General: Awake, alert, and fully oriented, in no acute distress Head: No signs of trauma Eyes: EOMI, sclera anicteric ENT: Moist mucus membranes Neck: Normal ROM, supple Lungs: Lungs clear, Normal breath sounds Cardio: Regular rhythm, S1 and S2 present Abdomen: Soft, nontender Extremities: Normal range of motion, Distal pulses present, Tender upon palpation of lower right ribs Skin: Warm, Dry, normal turgor Neurologic: Cranial nerves II through XII grossly intact. Normal speech ED Course/MDM: DDX including but not limited to rib fracture, pelvic fracture, MSK Patient initially seen by another provider in the [facility] area, but transferred to the main ED for admission as the patient could not ambulate Labs, EKG, CXR 05/22/20 15:01 CXR as reported by radiology: "2 views of the chest reveal well aerated lungs, elevated right hemidiaphragm, lower cervical spine fusion hardware and thoracic spine, normal aorta and normal heart. The soft tissues are intact. 12/30/2019, there is no change. If symptoms persist, further imaging may be of help. Reported By: Mendez Sanon MD 05/22/20 1422 " R. Rib series as reported by radiology: "3 views of the right ribs have been submitted. There is no gross evidence of a fracture. Blastic or lytic changes are not seen. There is no sign of a pneumothorax, pleural fluid or atelectasis. There is a weak inspiration, extensive spinal fusion hardware and clear right lung. If symptoms persist, further imaging and orthopedic consultation may be of help. Reported By: Mendez Sanon MD 05/22/201454 " R. hip and pelvis as reported by radiology: "An AP view of the pelvis and 2 views of the right hip were submitted. There is no sign of fracture or subluxation and no sign of blastic or lytic. The SI joints are patent. There is lower spinal fusion hardware. There are vascular calcifications. If symptoms persist or there is decreased range of motion then further imaging and orthopedic consultation may be of help Reported By: Mendez Sanon MD 05/22/201454 " Concern for repeated falls Lives with his Katharine who is unable to help; fears he may fall again 05/22/20 15:34 CBC WBC 8.0 K/mm3 (4.0-10.0) 05/22/20 15:41 RBC 4.24 M/mm3 (4.00-5.60) 05/22/20 15:41 Hgb 13.3 GM/dL (11.7-16.9) 05/22/20 15:41 Hct 39.3 % (35.4-49) 05/22/20 15:41 MCV 92.9 fl (80-96) 05/22/20 15:41 MCH 31.5 pg (25.7-33.7) 05/22/20 15:41 MCHC 33.9 g/dl (32.0-35.9) 05/22/20 15:41 RDW 16.5 % (11.9-15.9) H 05/22/20 15:41 Plt Count 223 K/MM3 (134-434) 05/22/20 15:41 MPV 7.3 fl (7.5-11.1) L 05/22/20 15:41 Absolute Neuts (auto) 4.7 K/mm3 (1.5-8.0) 05/22/20 15:41 Neutrophils % 59.1 % (42.8-82.8) D 05/22/20 15:41 Lymphocytes % 30.2 % (8-40) D 05/22/20 15:41 Monocytes % 8.1 % (3.8-10.2) 05/22/20 15:41 Eosinophils % 2.2 % (0-4.5) 05/22/20 15:41 Basophils % 0.4 % (0-2.0) 05/22/20 15:41 Nucleated RBC % 0 % (0-0) 05/22/20 15:41 No leukocytosis or anemia CMP Sodium 137 mmol/L (136-145) 05/22/20 15:41 Potassium 3.9 mmol/L (3.5-5.1) 05/22/20 15:41 Chloride 99 mmol/L (98-107) 05/22/20 15:41 Carbon Dioxide 30 mmol/L (21-32) 05/22/20 15:41 Anion Gap 8 MMOL/L (8-16) 05/22/20 15:41 BUN 14.9 mg/dL (7-18) 05/22/20 15:41 Creatinine 0.9 mg/dL (0.55-1.3) 05/22/20 15:41 Est GFR (CKD-EPI)AfAm 99.94 05/22/20 15:41 Est GFR (CKD-EPI)NonAf 86.23 05/22/20 15:41 Random Glucose 204 mg/dL (74-106) H 05/22/20 15:41 Calcium 9.7 mg/dL (8.5-10.1) 05/22/20 15:41 Total Bilirubin 0.4 mg/dL (0.2-1) 05/22/20 15:41 AST 22 U/L (15-37) 05/22/20 15:41 ALT 29 U/L (13-61) 05/22/20 15:41 Alkaline Phosphatase 171 U/L (45-117) H 05/22/20 15:41 Total Protein 8.0 g/dl (6.4-8.2) 05/22/20 15:41 Albumin 4.1 g/dl (3.4-5.0) 05/22/20 15:41 Electrolytes unremarkable EKG: rate 105, Qtc 462, sinus Patient unable to ambulate Amenable to rehab Plan for social admission 05/22/20 18:[address] Nathalie Wiggins who accepted patient for admission under Dr. Jordan Admission order placed 05/22/20 18:39 Past History - Medical History Allergies/Adverse Reactions: Allergies Allergy/AdvReac Type Severity Reaction Status Date / Time codeine Allergy Intermediate "stomach Verified 05/22/20 13:42 hurts and itchy" morphine Allergy Unknown "itchy" Verified 05/22/20 13:42 Home Medications: Ambulatory Orders Bimatoprost [Lumigan] 1 drop OD HS 12/13/15 Metoprolol Succinate [Toprol XL -] 1 tab PO DAILY 12/13/15 Atorvastatin Ca [Lipitor] 20 mg PO HS tablet 12/26/15 Aspirin [ASA -] 81 mg PO DAILY 05/06/17 Insulin (Novolog 70/30) [Novolog Mix 70/30 Flexpen -] 60 units SQ BID 05/06/17 Sertraline HCl 50 mg PO DAILY 05/06/17 Cetirizine HCl [Zyrtec -] 10 mg PO DAILY 01/23/19 Furosemide 20 mg PO DAILY 01/23/19 Losartan Potassium 100 mg PO DAILY 01/23/19 metFORMIN HCL [Glucophage -] 1,000 mg PO BID 01/23/19 Brimonidine Tartrate [Alphagan 0.2% -] 1 drop OU BID drops 01/29/19 Pregabalin [Lyrica -] 150 mg PO DAILY 03/20/19 Baclofen 10 mg PO TID 04/10/19 Multivit-Min/FA/Lycopen/Lutein [Centrum Silver Men Tablet] 1 each PO DAILY 04/10/19 Omeprazole 20 mg PO DAILY 04/10/19 Dulaglutide [Trulicity] 1.5 mg SQ WEEKLY 12/11/19 Acetaminophen [Tylenol .Extra-Strength -] 1,000 mg PO Q6H PRN tablet 12/20/19 Bisacodyl Suppository [Dulcolax Suppository -] 10 mg RC DAILY PRN supp.rect 12/20/19 Calcium 500Mg/Vit-D 200 Units [Os-Wilbur 500+D -] 2 tab PO DAILY tab 12/20/19 Diphenhydramine HCl [Benadryl Capsule -] 25 mg PO Q6H PRN capsule 12/20/19 Docusate Sodium [Colace -] 100 mg PO TID capsule 12/20/19 Ferrous Sulfate [Feosol] 325 mg PO DAILY ud 12/20/19 Folic Acid - 1 mg PO DAILY tablet 12/20/19 Heparin - 5,000 unit SQ Q8H vial 12/20/19 Insulin Sliding Scale [Novolog Vial Sliding Scale -] 1 vial SQ ACHS units 12/20/19 Mag Hydrox/Al Hydrox/Simeth [Mylanta Oral Suspension -] 30 ml PO Q6H PRN cup 12/20/19 Pantoprazole Sodium [Protonix -] 20 mg PO DAILY tablet.ec 12/20/19 Polyethylene Glycol 3350 [Miralax 119 gm Btl -] 17 gm PO BID bottle 12/20/19 Simethicone [Mylicon -] 80 mg PO Q4H PRN tab.chew 12/20/19 Anemia: No Asthma: No Cancer: No Cardiac Disorders: Yes ("a little hole in heart") CVA: No COPD: No CHF: No Dementia: No Diabetes: Yes (IDDM) GI Disorders: No Disorders: No HTN: Yes Hypercholesterolemia: Yes Liver Disease: No Seizures: No Thyroid Disease: No - Surgical History Cholecystectomy: Yes Neurologic Surgery: (low back and neck sx) Orthopedic Surgery: Yes (Back sx 2016) - Immunization History Td Vaccination: No TDAP Vaccination: No Immunization Up to Date: No - Psycho-Social/Smoking History Smoking History: Never smoked Have you smoked in the past 12 months: No If you are a former smoker, when did you quit?: 30 YEARS AGO Information on smoking cessation initiated: No - Substance Abuse Hx (Audit-C & DAST Scrn) How often the patient has a drink containing alcohol: Never Score: In Men: 4 or > Positive; In Women: 3 or > Positive: 0 Screen Result (Pos requires Nsg. Audit-10AR): Negative In the last yr the pt used illegal drug/Rx for NonMed reason: No Score: Yes response is considered Positive: 0 Screen Result (Positive result requires Nsg. DAST-10): Negative *Physical Exam - Vital Signs Last Vital Signs Temp Pulse Resp BP Pulse Ox 98.6 F 114 H 19 153/85 98 05/22/20 13:41 05/22/20 13:41 05/22/20 13:41 05/22/20 13:41 05/22/20 13:41 ED Treatment Course - LABORATORY CBC & Chemistry Diagram: 05/22/20 15:41 05/22/20 15:41 Discharge - Discharge Information Problems reviewed: Yes Clinical Impression/Diagnosis: Hip pain Fall Qualifiers: Encounter type: initial encounter Qualified Code(s): W19.XXXA - Unspecified fall, initial encounter Condition: Guarded - Admission Yes - Follow up/Referral Referrals: Feliciano Alonzo MD, [Primary Care Provider] - - Patient Discharge Instructions - Post Discharge Activity
[2020-05-22] MEDS ORDERED: ACETAMINOPHEN 325 MG TABLET (FP) PO ONE (15:32)
[2020-05-22] MEDS ORDERED: ACETAMINOPHEN 500 MG TABLET (FP) ONE (15:46)
[2020-05-22 15:48] LABS: BASO % 0.4 % (0-2.0); EOS % 2.2 % (0-4.5); HEMATOCRIT 39.3 % (35.4-49); HEMOGLOBIN 13.3 GM/dL (11.7-16.9); LYMPH % 30.2 % (8-40); MCH 31.5 pg (25.7-33.7); MCHC 33.9 g/dl (32.0-35.9); MEAN CELL VOLUME 92.9 fl (80-96); MEAN PLT VOLUME 7.3 fl (7.5-11.1); MONO % 8.1 % (3.8-10.2); NEUT % 59.1 % (42.8-82.8); PLATELET COUNT 223 K/MM3 (134-434); RBC 4.24 M/mm3 (4.00-5.60); RDW 16.5 % (11.9-15.9)
--- NOTE | 2020-05-22 15:54 | PDOC ---
Attending Attestation - Resident Resident Name: Brooke Mauricio - ED Attending Attestation I have performed the following: I have examined & evaluated the patient, The case was reviewed & discussed with the resident, I agree w/resident's findings & plan, Exceptions are as noted - HPI HPI: 05/22/20 15:52 70 yo M h/o frequent falls p/w mechanical fall while getting out of bed last night landing on his behind. Reports R rib pain and hip pain. No head trauma, no LOC. Denies CP, SOB, dizziness/lightheadedness pre or post fall. Denies infectious complaints. Denies abd pain. - Physicial Exam PE: 05/22/20 15:49 General: well appearing HEENT: NCAT Chest: +R lower lateral rib pain, CTAB, good air entry CVS: + s1 s2 Extremities: warm and well perfused, no LE edema Neuro: awake, alert, responds appropriately to questions, unable to assess gait - Medical Decision Making 05/22/20 15:51 70 yo M here after mechanical fall, imaging negative for acute fx or ICH however patient with h/o frequent falls and currently unable to ambulate and and patient feel that patient would likely benefit from PT/Rehab. Plan: -labs -EKG -admit This clinical encounter is taking place during a federal and state health care emergency attributable to the novel [place] Virus pandemic. The [employer] of the Department of Health and Human Services has declared, pursuant to the Public Health Service Act 319F-3 (42 U.S[place]C. 247d-6d), that a covered persons activities related to medical countermeasures against COVID-19 will be immune from liability under Federal and State law. Discharge - Discharge Information Problems reviewed: Yes Clinical Impression/Diagnosis: Hip pain Fall Qualifiers: Encounter type: initial encounter Qualified Code(s): W19.XXXA - Unspecified fall, initial encounter Condition: Stable - Follow up/Referral - Patient Discharge Instructions - Post Discharge Activity
[2020-05-22 16:21] LABS: ALBUMIN 4.1 g/dl (3.4-5.0); BILIRUBIN,TOTAL 0.4 mg/dL (0.2-1); BLOOD UREA NITROGEN 14.9 mg/dL (7-18); CALCIUM 9.7 mg/dL (8.5-10.1); CREATININE 0.9 mg/dL (0.55-1.3); POTASSIUM 3.9 mmol/L (3.5-5.1)
[2020-05-22] MEDS ORDERED: ACETAMINOPHEN 325 MG TABLET (FP) ONE (22:45)
[2020-05-22] MEDS: ACETAMINOPHEN 325 MG TABLET (FP) PO PRN (23:06)
--- NOTE | 2020-05-22 23:40 | HP ---
<Jonatan Roach - Last Filed: 05/23/20 01:35> CHIEF COMPLAINT: R. Lower Back pain PCP: Dr. Alonzo HISTORY OF PRESENT ILLNESS: David Pollard is a 70 M with a PMH of DM, HTN, HLD, Chronic back pain w/radiculopathy + neuropathy, dilatation of ascending aorta, s/p Thoracic surgery on 12/12/19, presented with R. hip pain(x 1month) and R. buttock pain for 1 D, s/p fall. Patient reports that he was getting out of his bed, when he suddenly slipped on his left leg and fell on to the right side, hitting his right buttock on the floor. Patient denies any prodromal symptoms: nausea, vomiting, chest pain, palpitations, sweating, and changes in vision. Patient also denies any LOC, head trauma, weakness, bowel/bladder incontinence after the event. Patient reports that he a back surgery on December, since then he has been feeling b/l numbness and weakness L>R which caused him to fall multiple times. He reports that he has had about 3-4 falls in the past month. He also reports that he has b/l upper and lower extremity tingling sensations. Previous admission: 12/12/18-12/20/18: Admitted for elective thoracic spine surgery repair: T5-T11 costovertebral/tranpedicular decompression with osteotomies and arthrodesis. T5-T11 posterior fusion with pedicle screws. In ER patient was given acetaminophen 975mg and reports improvement of his pain. ER course was notable for: (1) BS 204 (2) P 102 (3) Recent Travel: denies PAST MEDICAL HISTORY: As above in HPI PAST SURGICAL HISTORY: As above in HPI Social History: Smoking: denies Alcohol: denies Drugs: denies Allergies codeine Allergy (Intermediate, Verified 05/22/20 13:42) "stomach hurts and itchy" morphine Allergy (Unknown, Verified 05/22/20 13:42) "itchy" HOME MEDICATIONS: Home Medications Medication Instructions Recorded Bimatoprost [Lumigan] 1 drop OD HS 12/13/15 Metoprolol Succinate [Toprol XL -] 1 tab PO DAILY 12/13/15 Atorvastatin Ca [Lipitor] 20 mg PO HS tablet 12/26/15 Aspirin [ASA -] 81 mg PO DAILY 05/06/17 Insulin (Novolog 70/30) [Novolog 60 units SQ BID 05/06/17 Mix 70/30 Flexpen -] Sertraline HCl 50 mg PO DAILY 05/06/17 Cetirizine HCl [Zyrtec -] 10 mg PO DAILY 01/23/19 Furosemide 20 mg PO DAILY 01/23/19 Losartan Potassium 100 mg PO DAILY 01/23/19 metFORMIN HCL [Glucophage -] 1,000 mg PO BID 01/23/19 Brimonidine Tartrate [Alphagan 1 drop OU BID drops 01/29/19 0.2% -] Pregabalin [Lyrica -] 150 mg PO DAILY 03/20/19 Baclofen 10 mg PO TID 04/10/19 Multivit-Min/FA/Lycopen/Lutein 1 each PO DAILY 04/10/19 [Centrum Silver Men Tablet] Omeprazole 20 mg PO DAILY 04/10/19 Dulaglutide [Trulicity] 1.5 mg SQ WEEKLY 12/11/19 Acetaminophen [Tylenol 1,000 mg PO Q6H PRN tablet 12/20/19 .Extra-Strength -] Bisacodyl Suppository [Dulcolax 10 mg RC DAILY PRN supp.rect 12/20/19 Suppository -] Calcium 500Mg/Vit-D 200 Units 2 tab PO DAILY tab 12/20/19 [Os-Wilbur 500+D -] Diphenhydramine HCl [Benadryl 25 mg PO Q6H PRN capsule 12/20/19 Capsule -] Docusate Sodium [Colace -] 100 mg PO TID capsule 12/20/19 Ferrous Sulfate [Feosol] 325 mg PO DAILY ud 12/20/19 Folic Acid - 1 mg PO DAILY tablet 12/20/19 Heparin - 5,000 unit SQ Q8H vial 12/20/19 Insulin Sliding Scale [Novolog 1 vial SQ ACHS units 12/20/19 Vial Sliding Scale -] Mag Hydrox/Al Hydrox/Simeth 30 ml PO Q6H PRN cup 12/20/19 [Mylanta Oral Suspension -] Pantoprazole Sodium [Protonix -] 20 mg PO DAILY tablet.ec 12/20/19 Polyethylene Glycol 3350 [Miralax 17 gm PO BID bottle 12/20/19 119 gm Btl -] Simethicone [Mylicon -] 80 mg PO Q4H PRN tab.chew 12/20/19 REVIEW OF SYSTEMS CONSTITUTIONAL: Absent: fever, chills, diaphoresis, generalized weakness, malaise, loss of appetite, weight change HEENT: Absent: rhinorrhea, nasal congestion, throat pain, difficulty swallowing, visual changes CARDIOVASCULAR: Absent: chest pain, syncope, palpitations, irregular heart rate, lightheadedness, peripheral edema RESPIRATORY: Absent: cough, shortness of breath, dyspnea with exertion, orthopnea, wheezing GASTROINTESTINAL: Absent: abdominal pain, abdominal distension, nausea, vomiting, diarrhea, constipation GENITOURINARY: Absent: dysuria, frequency, urgency, hesitancy, hematuria, flank pain MUSCULOSKELETAL: Present: R.hip pain, R. lower back pain, R.lower buttock pain Absent: myalgia, arthralgia, joint swelling, neck pain SKIN: Absent: rash, itching, pallor NEUROLOGIC: Present: Numbness and tingling b/l LE, tingling of b/l UE, weakness of L. LE > R. LE Absent: headache, dizziness, seizure, mental status changes, bladder or bowel incontinence PHYSICAL EXAMINATION Vital Signs - 24 hr 05/22/20 05/22/20 05/22/20 13:41 15:02 18:32 Temperature 98.6 F Pulse Rate 114 H Pulse Rate [ 102 H Right Radial] Respiratory 19 Rate Blood Pressure 153/85 Blood Pressure 141/90 [Left Arm] O2 Sat by Pulse 98 96 99 Oximetry (%) 05/22/20 19:45 Temperature Pulse Rate Pulse Rate [ 94 H Right Radial] Respiratory 18 Rate Blood Pressure Blood Pressure 132/82 [Left Arm] O2 Sat by Pulse 99 Oximetry (%) GENERAL: Awake, alert, and fully oriented, in no acute distress. HEAD: Normal with no signs of trauma. EYES: Pupils equal, round and reactive to light, extraocular movements intact, sclera anicteric, conjunctiva clear. EARS, NOSE, THROAT: Ears normal, nares patent, oropharynx clear without exudates. Moist mucous membranes. NECK: Normal range of motion, supple without lymphadenopathy, JVD, or masses. LUNGS: Breath sounds equal, clear to auscultation bilaterally. No wheezes, and no crackles. No accessory muscle use. HEART: Regular rate and rhythm, normal S1 and S2 without murmur, rub or gallop. ABDOMEN: Soft, nontender, not distended, normoactive bowel sounds, no guarding, no rebound, no masses. No hepatomegaly or splenomegaly. MUSCULOSKELETAL: Atrophy of b/l hand first dorsal web spaces. R. Lower back tenderness to palpation. Normal range of motion at all joints. No bony deformities. No CVA tenderness. UPPER EXTREMITIES: 2+ pulses, warm, well-perfused. No cyanosis. No clubbing. No peripheral edema. LOWER EXTREMITIES: 2+ pulses, warm, well-perfused. No calf tenderness. No peripheral edema. NEUROLOGICAL: Cranial nerves II-XII intact. Normal speech. Strength 3/5 LLE, 4/5 RLE, 4/5 b/l UE, decreased sensation of left LE > Right LE PSYCHIATRIC: Cooperative. Good eye contact. Appropriate mood and affect. SKIN: Warm, dry, normal turgor, no rashes or lesions noted, normal capillary refill. Laboratory Results - last 24 hr 05/22/20 05/22/20 15:41 15:41 WBC 8.0 RBC 4.24 Hgb 13.3 Hct 39.3 MCV 92.9 MCH 31.5 MCHC 33.9 RDW 16.5 H Plt Count 223 MPV 7.3 L Absolute Neuts (auto) 4.7 Neutrophils % 59.1 D Lymphocytes % 30.2 D Monocytes % 8.1 Eosinophils % 2.2 Basophils % 0.4 Nucleated RBC % 0 Sodium 137 Potassium 3.9 Chloride 99 Carbon Dioxide 30 Anion Gap 8 BUN 14.9 Creatinine 0.9 Est GFR (CKD-EPI)AfAm 99.94 Est GFR (CKD-EPI)NonAf 86.23 Random Glucose 204 H Calcium 9.7 Total Bilirubin 0.4 AST 22 ALT 29 Alkaline Phosphatase 171 H Total Protein 8.0 Albumin 4.1 ASSESSMENT/PLAN: 70 M with a PMH of DM, HTN, HLD, Chronic back pain w/radiculopathy + neuropathy, s/p thoracic surgery on 12/12/19, presented with R. hip pain(x 1month) and R. buttock pain for 1 D, s/p fall. Admitted for workup and management falls/pain. #Frequent Falls - 3-4 falls in the past month - Unclear etiology, possibly 2/2 b/l LE neurological deficits - Neuro is consulted, will f/u with recs - Pain management with Tylenol 650mg PO Q4H PRN - CT head is ordered to r/o acute intracranial pathology - PT is consulted - Fall risk precautions in place #DM - HbA1c (04/30/17) 8.8% - BGM + sliding scale insulin regimen protocol in place #HTN - Home meds will need to be med recs in AM, Toprol XL 1 tab, Losartan 100 mg, Furosemide 20mg #HLD - Continue Lipitor 20 mg # Ascending Aorta Dilation - per Vascular Surgery(12/14/19) Slight dilatation of ascending aorta does not require any additional imaging or intervention at this time. In general, ascending aortic aneurysm would not be repaired until > 6 cm or if there was a rapid rate of growth. - will recommend outpatient evaluation with U/S or CT ATTENDING PHYSICIAN STATEMENT I saw and evaluated the patient. I reviewed the resident's note and discussed the case with the resident. I agree with the resident's findings and plan as documented. SUBJECTIVE: OBJECTIVE: ASSESSMENT AND PLAN: <George Jordan - Last Filed: 05/23/20 07:04> CHIEF COMPLAINT: PCP: HISTORY OF PRESENT ILLNESS: ER course was notable for: (1) (2) (3) Recent Travel: PAST MEDICAL HISTORY: PAST SURGICAL HISTORY: Social History: Smoking: Alcohol: Drugs: Allergies codeine Allergy (Intermediate, Verified 05/22/20 13:42) "stomach hurts and itchy" morphine Allergy (Unknown, Verified 05/22/20 13:42) "itchy" HOME MEDICATIONS: Home Medications Medication Instructions Recorded Bimatoprost [Lumigan] 1 drop OD HS 12/13/15 Metoprolol Succinate [Toprol XL -] 1 tab PO DAILY 12/13/15 Atorvastatin Ca [Lipitor] 20 mg PO HS tablet 12/26/15 Aspirin [ASA -] 81 mg PO DAILY 05/06/17 Insulin (Novolog 70/30) [Novolog 60 units SQ BID 05/06/17 Mix 70/30 Flexpen -] Sertraline HCl 50 mg PO DAILY 05/06/17 Cetirizine HCl [Zyrtec -] 10 mg PO DAILY 01/23/19 Furosemide 20 mg PO DAILY 01/23/19 Losartan Potassium 100 mg PO DAILY 01/23/19 metFORMIN HCL [Glucophage -] 1,000 mg PO BID 01/23/19 Brimonidine Tartrate [Alphagan 1 drop OU BID drops 01/29/19 0.2% -] Pregabalin [Lyrica -] 150 mg PO DAILY 03/20/19 Baclofen 10 mg PO TID 04/10/19 Multivit-Min/FA/Lycopen/Lutein 1 each PO DAILY 04/10/19 [Centrum Silver Men Tablet] Omeprazole 20 mg PO DAILY 04/10/19 Dulaglutide [Trulicity] 1.5 mg SQ WEEKLY 12/11/19 Acetaminophen [Tylenol 1,000 mg PO Q6H PRN tablet 12/20/19 .Extra-Strength -] Bisacodyl Suppository [Dulcolax 10 mg RC DAILY PRN supp.rect 12/20/19 Suppository -] Calcium 500Mg/Vit-D 200 Units 2 tab PO DAILY tab 12/20/19 [Os-Wilbur 500+D -] Diphenhydramine HCl [Benadryl 25 mg PO Q6H PRN capsule 12/20/19 Capsule -] Docusate Sodium [Colace -] 100 mg PO TID capsule 12/20/19 Ferrous Sulfate [Feosol] 325 mg PO DAILY ud 12/20/19 Folic Acid - 1 mg PO DAILY tablet 12/20/19 Heparin - 5,000 unit SQ Q8H vial 12/20/19 Insulin Sliding Scale [Novolog 1 vial SQ ACHS units 12/20/19 Vial Sliding Scale -] Mag Hydrox/Al Hydrox/Simeth 30 ml PO Q6H PRN cup 12/20/19 [Mylanta Oral Suspension -] Pantoprazole Sodium [Protonix -] 20 mg PO DAILY tablet.ec 12/20/19 Polyethylene Glycol 3350 [Miralax 17 gm PO BID bottle 12/20/19 119 gm Btl -] Simethicone [Mylicon -] 80 mg PO Q4H PRN tab.chew 12/20/19 REVIEW OF SYSTEMS CONSTITUTIONAL: Absent: fever, chills, diaphoresis, generalized weakness, malaise, loss of appetite, weight change HEENT: Absent: rhinorrhea, nasal congestion, throat pain, throat swelling, difficulty swallowing, mouth swelling, ear pain, eye pain, visual changes CARDIOVASCULAR: Absent: chest pain, syncope, palpitations, irregular heart rate, lightheadedness, peripheral edema RESPIRATORY: Absent: cough, shortness of breath, dyspnea with exertion, orthopnea, wheezing, stridor, hemoptysis GASTROINTESTINAL: Absent: abdominal pain, abdominal distension, nausea, vomiting, diarrhea, constipation, melena, hematochezia GENITOURINARY: Absent: dysuria, frequency, urgency, hesitancy, hematuria, flank pain, genital pain MUSCULOSKELETAL: Absent: myalgia, arthralgia, joint swelling, back pain, neck pain SKIN: Absent: rash, itching, pallor HEMATOLOGIC/IMMUNOLOGIC: Absent: easy bleeding, easy bruising, lymphadenopathy, frequent infections ENDOCRINE: Absent: unexplained weight gain, unexplained weight loss, heat intolerance, cold intolerance NEUROLOGIC: Absent: headache, focal weakness or paresthesias, dizziness, unsteady gait, seizure, mental status changes, bladder or bowel incontinence PSYCHIATRIC: Absent: anxiety, depression, suicidal or homicidal ideation, hallucinations. PHYSICAL EXAMINATION Vital Signs - 24 hr 05/22/20 05/22/20 05/22/20 13:41 15:02 18:32 Temperature 98.6 F Pulse Rate 114 H Pulse Rate [ Left Radial] Pulse Rate [ 102 H Right Radial] Respiratory 19 Rate Blood Pressure 153/85 Blood Pressure 141/90 [Left Arm] O2 Sat by Pulse 98 96 99 Oximetry (%) 05/22/20 05/22/20 05/23/20 19:45 21:00 04:14 Temperature 98.5 F Pulse Rate Pulse Rate [ 101 H Left Radial] Pulse Rate [ 94 H Right Radial] Respiratory 18 20 Rate Blood Pressure Blood Pressure 132/82 123/82 [Left Arm] O2 Sat by Pulse 99 97 99 Oximetry (%) 05/23/20 06:28 Temperature 97.4 F L Pulse Rate Pulse Rate [ 99 H Left Radial] Pulse Rate [ Right Radial] Respiratory 18 Rate Blood Pressure Blood Pressure 141/73 [Left Arm] O2 Sat by Pulse 95 Oximetry (%) GENERAL: Awake, alert, and fully oriented, in no acute distress. HEAD: Normal with no signs of trauma. EYES: Pupils equal, round and reactive to light, extraocular movements intact, sclera anicteric, conjunctiva clear. No lid lag. EARS, NOSE, THROAT: Ears normal, nares patent, oropharynx clear without exudates. Moist mucous membranes. NECK: Normal range of motion, supple without lymphadenopathy, JVD, or masses. LUNGS: Breath sounds equal, clear to auscultation bilaterally. No wheezes, and no crackles. No accessory muscle use. HEART: Regular rate and rhythm, normal S1 and S2 without murmur, rub or gallop. ABDOMEN: Soft, nontender, not distended, normoactive bowel sounds, no guarding, no rebound, no masses. No hepatomegaly or splenomegaly. MUSCULOSKELETAL: Normal range of motion at all joints. No bony deformities or tenderness. No CVA tenderness. UPPER EXTREMITIES: 2+ pulses, warm, well-perfused. No cyanosis. No clubbing. No peripheral edema. LOWER EXTREMITIES: 2+ pulses, warm, well-perfused. No calf tenderness. No peripheral edema. NEUROLOGICAL: Cranial nerves II-XII intact. Normal speech. Normal gait. PSYCHIATRIC: Cooperative. Good eye contact. Appropriate mood and affect. SKIN: Warm, dry, normal turgor, no rashes or lesions noted, normal capillary refill. Laboratory Results - last 24 hr 05/22/20 05/22/20 05/23/20 15:41 15:41 01:09 WBC 8.0 RBC 4.24 Hgb 13.3 Hct 39.3 MCV 92.9 MCH 31.5 MCHC 33.9 RDW 16.5 H Plt Count 223 MPV 7.3 L Absolute Neuts (auto) 4.7 Neutrophils % 59.1 D Lymphocytes % 30.2 D Monocytes % 8.1 Eosinophils % 2.2 Basophils % 0.4 Nucleated RBC % 0 Sodium 137 Potassium 3.9 Chloride 99 Carbon Dioxide 30 Anion Gap 8 BUN 14.9 Creatinine 0.9 Est GFR (CKD-EPI)AfAm 99.94 Est GFR (CKD-EPI)NonAf 86.23 Random Glucose 204 H Calcium 9.7 Total Bilirubin 0.4 AST 22 ALT 29 Alkaline Phosphatase 171 H Total Protein 8.0 Albumin 4.1 Urine Color Yellow Urine Appearance Clear Urine pH 6.5 D Ur Specific [place] 1.021 Urine Protein Negative Urine Glucose (UA) 3+ H Urine Ketones Trace H Urine Blood Negative Urine Nitrite Negative Urine Bilirubin Negative Urine Urobilinogen 0.2 Ur Leukocyte Esterase Negative ASSESSMENT/PLAN: Visit type - Medication Review Med list reviewed for High Risk Meds patients 65 and older: Yes - Emergency Visit Emergency Visit: Yes ED Registration Date: 05/22/20 Care time: The patient presented to the Emergency Department on the above date and was hospitalized for further evaluation of their emergent condition. - New Patient This patient is new to me today: Yes Date on this admission: 05/23/20 - Critical Care Critical Care patient: No ATTENDING PHYSICIAN STATEMENT I saw and evaluated the patient. I reviewed the resident's note and discussed the case with the resident. I agree with the resident's findings and plan as documented. 70 M with a PMH of DM, HTN, HLD, Chronic back pain w/radiculopathy + neuropathy, s/p thoracic surgery on 12/12/19, presented with with right hip pain for 1 day s/p fall. he states that he was getting out of the bed and slipped on his left leg and fell on his right side. no dizziness or LOC patient is examined at bed side c/o R hip pain not in acute distress frequent falls DM, HTN, HLD Ascending aorta dilation neurology eval Pain management PT/rehab eval fall precautions POCT monitoring with SSI HTN -controlled- Resume home meds rest of the plan as above - discussed with staff in details
[2020-05-23 01:18] LABS: PH,URINE 6.5 (5.0-8.0); URINE APPEARANCE CLEAR; URINE BILIRUBIN NEGATIVE (NEGATIVE); URINE COLOR YELLOW; URINE GLUCOSE (UA) 3+ (NEGATIVE); URINE KETONE TRACE (NEGATIVE); URINE LEUK ESTERASE NEGATIVE (NEGATIVE); URINE NITRITE NEGATIVE (NEGATIVE); URINE PROTEIN NEGATIVE (NEGATIVE); URINE UROBILINOGEN 0.2 mg/dL (0.2-1.0)
[2020-05-23] MEDS ORDERED: ACETAMINOPHEN 325 MG TABLET (FP) ONE (06:02)
[2020-05-23] MEDS: ACETAMINOPHEN 325 MG TABLET (FP) PO PRN ×3 (06:06→19:16)
[2020-05-23 07:25] LABS: BASO % 0.4 % (0-2.0); HEMATOCRIT 36.3 % (35.4-49); HEMOGLOBIN 12.2 GM/dL (11.7-16.9); LYMPH % 29.6 % (8-40); MCH 30.9 pg (25.7-33.7); MCHC 33.7 g/dl (32.0-35.9); MEAN CELL VOLUME 91.7 fl (80-96); MEAN PLT VOLUME 7.7 fl (7.5-11.1); MONO % 8.9 % (3.8-10.2); NEUT % 59.1 % (42.8-82.8); PLATELET COUNT 207 K/MM3 (134-434); RBC 3.96 M/mm3 (4.00-5.60); RDW 16.8 % (11.9-15.9); WHITE BLOOD COUNT 7.3 K/mm3 (4.0-10.0)
[2020-05-23 07:51] LABS: ALBUMIN 3.8 g/dl (3.4-5.0); BLOOD UREA NITROGEN 12.8 mg/dL (7-18); CALCIUM 9.2 mg/dL (8.5-10.1); CREATININE 0.8 mg/dL (0.55-1.3); MAGNESIUM 2.1 mg/dL (1.8-2.4); PHOSPHOROUS 2.6 mg/dL (2.5-4.9); POTASSIUM 3.8 mmol/L (3.5-5.1); TOT PROT 7.5 g/dl (6.4-8.2)
[2020-05-23] MEDS: INSULIN SLIDING SCALE (NOVOLOG) 1 VIAL SQ SCH ×4 (10:00→21:20)
[2020-05-23] MEDS ORDERED: PREGABALIN 100 MG, PREGABALIN 50 MG PO SCH (10:00)
[2020-05-23] MEDS ORDERED: PATIENT'S OWN MEDICATION (NON-FORMULARY) (Pregabalin [Lyrica -] 150 MG) PO SCH (10:00)
[2020-05-23] MEDS ORDERED: MULTIVITAMINS (DAILY MVI) TABLET (FP) ONE (10:40)
[2020-05-23] MEDS ORDERED: PREGABALIN 50 MG CAPSULE ONE ×2 (10:40→20:48)
[2020-05-23] MEDS ORDERED: PREGABALIN 100 MG CAPSULE ONE ×2 (10:40→20:49)
[2020-05-23] MEDS ORDERED: ENOXAPARIN NA (PORCINE) 40 MG/0.4 ML DISP.SYRIN SQ ONE (10:41)
[2020-05-23] MEDS ORDERED: FOLIC ACID 1 MG TABLET (FP) ONE (10:41)
[2020-05-23] MEDS ORDERED: INSULIN SLIDING SCALE (NOVOLOG) 1 VIAL SQ ONE (10:41)
[2020-05-23] MEDS: ASPIRIN 81 MG CHEWABLE TABLETS PO SCH (10:51)
[2020-05-23] MEDS: LOSARTAN POTASSIUM 50 MG TABLET (FP) PO SCH (10:51)
[2020-05-23] MEDS: ENOXAPARIN NA (PORCINE) 40 MG/0.4 ML DISP.SYRIN SQ SCH (10:52)
[2020-05-23] MEDS: FOLIC ACID 1 MG TABLET (FP) PO SCH (10:52)
[2020-05-23] MEDS: MULTIVITAMINS THER W-MINERALS COMBO TABLET (FP) PO SCH (11:09)
--- NOTE | 2020-05-23 11:30 | CON.NEURO ---
Consult Consult Specialty:: Lewis Referred by:: ER - History of Present Illness History of Present Illness: 70 years old man with PM DM, HTN, HLD, Chronic back pain w/radiculopathy + neuropathy, dilatation of ascending aorta, s/p Thoracic surgery on 12/12/19, presented with R. hip pain(x 1month) and R. buttock pain for 1 D, s/p fall. Pain is sharp 7/10 no weight loss or weight gain mild parathesia No direct trauma with hip to low back - History Source History Provided By: Patient, Medical Record Limitations to Obtaining History: No Limitations - Past Medical History Cardio/Vascular: Yes: Aneurysm, HTN, Hyperlipdemia Gastrointestinal: Yes: GERD Psych: Yes: Depression Musculoskeletal: Yes: Other (right foot drop) Endocrine: Yes: Diabetes Mellitus (DM II) - Past Surgical History Past Surgical History: Yes: Cataract Removal (bilaterally), Laminectomy - Alcohol/Substance Use Hx Alcohol Use: Yes (RARE) - Smoking History Smoking history: Never smoked Have you smoked in the past 12 months: No If you are a former smoker, when did you quit?: 30 YEARS AGO - Social History Usual Living Arrangement: With Spouse ADL: Independent History of Recent Travel: No Home Medications - Allergies Allergies/Adverse Reactions: Allergies Allergy/AdvReac Type Severity Reaction Status Date / Time codeine Allergy Intermediate "stomach Verified 05/22/20 13:42 hurts and itchy" morphine Allergy Unknown "itchy" Verified 05/22/20 13:42 - Home Medications Home Medications: Ambulatory Orders Bimatoprost [Lumigan] 1 drop OD HS 12/13/15 Metoprolol Succinate [Toprol XL -] 1 tab PO DAILY 12/13/15 Atorvastatin Ca [Lipitor] 20 mg PO HS tablet 12/26/15 Aspirin [ASA -] 81 mg PO DAILY 05/06/17 Insulin (Novolog 70/30) [Novolog Mix 70/30 Flexpen -] 60 units SQ BID 05/06/17 Sertraline HCl 50 mg PO DAILY 05/06/17 Cetirizine HCl [Zyrtec -] 10 mg PO DAILY 01/23/19 Furosemide 20 mg PO DAILY 01/23/19 Losartan Potassium 100 mg PO DAILY 01/23/19 metFORMIN HCL [Glucophage -] 1,000 mg PO BID 01/23/19 Brimonidine Tartrate [Alphagan 0.2% -] 1 drop OU BID drops 01/29/19 Pregabalin [Lyrica -] 150 mg PO DAILY 03/20/19 Baclofen 10 mg PO TID 04/10/19 Multivit-Min/FA/Lycopen/Lutein [Centrum Silver Men Tablet] 1 each PO DAILY 04/10/19 Omeprazole 20 mg PO DAILY 04/10/19 Dulaglutide [Trulicity] 1.5 mg SQ WEEKLY 12/11/19 Acetaminophen [Tylenol .Extra-Strength -] 1,000 mg PO Q6H PRN tablet 12/20/19 Bisacodyl Suppository [Dulcolax Suppository -] 10 mg RC DAILY PRN supp.rect 12/20/19 Calcium 500Mg/Vit-D 200 Units [Os-Wilbur 500+D -] 2 tab PO DAILY tab 12/20/19 Diphenhydramine HCl [Benadryl Capsule -] 25 mg PO Q6H PRN capsule 12/20/19 Docusate Sodium [Colace -] 100 mg PO TID capsule 12/20/19 Ferrous Sulfate [Feosol] 325 mg PO DAILY ud 12/20/19 Folic Acid - 1 mg PO DAILY tablet 12/20/19 Heparin - 5,000 unit SQ Q8H vial 12/20/19 Insulin Sliding Scale [Novolog Vial Sliding Scale -] 1 vial SQ ACHS units 12/20/19 Mag Hydrox/Al Hydrox/Simeth [Mylanta Oral Suspension -] 30 ml PO Q6H PRN cup 12/20/19 Pantoprazole Sodium [Protonix -] 20 mg PO DAILY tablet.ec 12/20/19 Polyethylene Glycol 3350 [Miralax 119 gm Btl -] 17 gm PO BID bottle 12/20/19 Simethicone [Mylicon -] 80 mg PO Q4H PRN tab.chew 12/20/19 Family Medical History Family History: Unremarkable Review of Systems - Review of Systems Musculoskeletal: reports: Back Pain, Muscle Pain, Muscle Cramps Physical Exam-Neuro Vital Signs: Vital Signs Temperature 97.9 F 05/23/20 10:13 Pulse Rate 116 H 05/23/20 10:13 Respiratory Rate 17 05/23/20 10:13 Blood Pressure 142/90 05/23/20 10:13 O2 Sat by Pulse Oximetry (%) 97 05/23/20 10:13 Constitutional: Yes: Well Nourished Neck: Yes: WNL Cardiovascular: Yes: WNL Labs: CBC, BMP 05/23/20 06:40 05/23/20 06:00 - Neuro Exam Level Of Consciousness: Yes: Oriented to Person, Oriented to Place, Oriented to Time Eyes: Yes: PERRLA Speech: WNL Dominant Hand: Right Cranial Nerves II-XII Intact: Yes Gag: Present DTR's: 1+ Left Bicep, 1+ Right Bicep, 1+ Left Tricep, 1+ Right Tricep Response to light touch: Normal Response to pain prick: Normal Response to temperature: Normal Motor Strength: 4/5: Left Arm, Right Arm, Left Leg, Right Leg Problem List - Problems (1) Fall Code(s): W19.XXXA - UNSPECIFIED FALL, INITIAL ENCOUNTER Qualifiers: Encounter type: initial encounter Qualified Code(s): W19.XXXA - Unspecified fall, initial encounter (2) Cervical myelopathy Code(s): G95.9 - DISEASE OF SPINAL CORD, UNSPECIFIED (3) 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 Fall precautions 2. CT of alethea head 3. Ct of the LS spine 4. Neurontin 100 mg po qh s 5. Lidoderm patch 6. PT [facility] [id number]
[2020-05-23] MEDS ORDERED: MAG HYDROX/AL HYDROX/SIMETH 30 ML UNIT-DOSE CUP PO PRN (12:04)
[2020-05-23] MEDS ORDERED: SIMETHICONE 80 MG TAB.CHEW (FP) PO PRN (12:04)
--- NOTE | 2020-05-23 12:07 | PN ---
Progress Note, Physician Chief Complaint: Intractable low back pain History of Present Illness: right low back pain radiating to right LQ of the abd. Pelvis CT shows moderate amt of retained stool No radiculopathy. Pt states he had not been able to have BM's entire last week. Last BM he was straining to go. - Current Medication List Current Medications: Active Medications Acetaminophen (Tylenol -) 650 mg PO Q4H PRN PRN Reason: PAIN LEVEL 6-10 Last Admin: 05/23/20 06:06 Dose: 650 mg Documented by: Al Hydroxide/Mg Hydroxide (Mylanta Oral Suspension -) 30 ml PO Q6H PRN PRN Reason: DYSPEPSIA Aspirin (Asa -) 81 mg PO DAILY [facility] Last Admin: 05/23/20 10:51 Dose: 81 mg Documented by: Atorvastatin Calcium (Lipitor -) 20 mg PO HS [facility] Baclofen (Lioresal -) 10 mg PO TID [facility] Brimonidine Tartrate (Alphagan 0.2% -) 1 drop OU BID [facility] Calcium Carbonate/Cholecalciferol (Os-Wilbur 500+D -) 2 tab PO DAILY [facility] Docusate Sodium (Colace -) 300 mg PO HS [facility] Enoxaparin Sodium (Lovenox -) 40 mg SQ DAILY [facility] Last Admin: 05/23/20 10:52 Dose: 40 mg Documented by: Ferrous Sulfate (Feosol -) 325 mg PO DAILY [facility] Folic Acid (Folic Acid -) 1 mg PO DAILY [facility] Last Admin: 05/23/20 10:52 Dose: 1 mg Documented by: Furosemide (Lasix -) 20 mg PO DAILY [facility] Insulin Aspart (Novolog Vial Sliding Scale -) 0 vial SQ ACHS [facility]; Protocol Last Admin: 05/23/20 11:53 Dose: 4 units Documented by: Losartan Potassium (Cozaar -) 100 mg PO DAILY [facility] Last Admin: 05/23/20 10:51 Dose: 100 mg Documented by: Metoprolol Succinate (Toprol Xl -) 25 mg PO DAILY [facility] Multivitamins/Minerals (Theragran-M) 1 each PO DAILY [facility] Last Admin: 05/23/20 11:09 Dose: 1 each Documented by: Non-Formulary Medication (Cetirizine Hcl) 10 mg PO DAILY [facility] Pantoprazole Sodium (Protonix -) 20 mg PO DAILY [facility] Polyethylene Glycol (Miralax (For Daily Use) -) 17 gm PO BID [facility] Pregabalin 100 mg/ Pregabalin (50 mg) 150 mg PO BID [facility] Sertraline HCl (Zoloft -) 50 mg PO DAILY [facility] Simethicone (Mylicon -) 80 mg PO Q4H PRN PRN Reason: DYSPEPSIA - Objective Vital Signs: Vital Signs Temperature 97.9 F 05/23/20 10:13 Pulse Rate 116 H 05/23/20 10:13 Respiratory Rate 17 05/23/20 10:13 Blood Pressure 142/90 05/23/20 10:13 O2 Sat by Pulse Oximetry (%) 97 05/23/20 10:13 Constitutional: Yes: Well Nourished, No Distress, Calm Cardiovascular: Yes: Regular Rate and Rhythm Respiratory: Yes: Regular, CTA Bilaterally Gastrointestinal: Yes: Normal Bowel Sounds, Soft, Tenderness (RLQ) Genitourinary: Yes: WNL Musculoskeletal: Yes: Muscle Weakness (Uses walker at home) Extremities: Yes: WNL Edema: No Peripheral Pulses WNL: Yes Neurological: Yes: Alert, Oriented Psychiatric: Yes: Alert, Oriented Labs: CBC, BMP 05/23/20 06:40 05/23/20 06:00 Problem List - Problems (1) Constipation Assessment/Plan: -Increase miralax BID -Senna 2 tabs HS -Will administer enema if above fails Problems reviewed: Yes Code(s): K59.00 - CONSTIPATION, UNSPECIFIED (2) Fall Assessment/Plan: -About 1.5 months ago -Likely not related-denies any radiculopathy, SLT negative Problems reviewed: Yes Code(s): W19.XXXA - UNSPECIFIED FALL, INITIAL ENCOUNTER Qualifiers: Encounter type: initial encounter Qualified Code(s): W19.XXXA - Unspecified fall, initial encounter (3) Abdominal pain Assessment/Plan: -RLQ -2/2 to constipation Problems reviewed: Yes Code(s): R10.9 - UNSPECIFIED ABDOMINAL PAIN (4) Diabetes Assessment/Plan: -BGM AC HS -diabetic sodium diet -ISS Problems reviewed: Yes Code(s): E11.9 - TYPE 2 DIABETES MELLITUS WITHOUT COMPLICATIONS Qualifiers: Diabetes mellitus type: type 2 Diabetes mellitus detention insulin use: with intermission coordinator use Diabetes mellitus complication status: with unspecified complications (5) Low back pain Assessment/Plan: -Seen by Neurology -CT lumbar final read pending -On Lyrica at home-continue -Continue baclofen 10 mg po BID PRN -Previous CT lumbar-Lumbar stenosis with fusion Problems reviewed: Yes Code(s): M54.5 - LOW BACK PAIN Assessment/Plan See problem list
--- NOTE | 2020-05-23 12:12 | EKG ---
Test Reason : Blood Pressure : / mmHG Vent. Rate : 105 BPM Atrial Rate : 105 BPM P-R Int : 156 ms QRS Dur : 074 ms QT Int : 350 ms P-R-T Axes : 008 -45 009 degrees QTc Int : 462 ms POOR DATA QUALITY, INTERPRETATION MAY BE ADVERSELY AFFECTED SINUS TACHYCARDIA LEFT AXIS DEVIATION ANTERIOR INFARCT , AGE UNDETERMINED ABNORMAL ECG WHEN COMPARED WITH ECG OF 30-DEC-2019 09:36, ANTERIOR INFARCT IS NOW PRESENT Confirmed by CELESTE JULIAN MD ([id number]) on 05/23/2020 12:12:17 PM Referred By: Confirmed By:CELESTE JULIAN MD
[2020-05-23 12:16] VITALS: BMI 25.6
[2020-05-23] MEDS: metoPROLOL SUCCINATE 25 MG TAB.SR.24H (FP) PO SCH (12:53)
[2020-05-23] MEDS: CALCIUM 500MG/VIT-D 200 UNITS COMBO TABLET (FP) PO SCH (12:53)
[2020-05-23] MEDS: LORATADINE 10 MG TABLET PO SCH (12:53)
[2020-05-23] MEDS: SERTRALINE HCL 50 MG TABLET (FP) PO SCH (12:53)
[2020-05-23] MEDS: FERROUS SO4 325 MG TABLET (FP) PO SCH (12:53)
[2020-05-23] MEDS: FUROSEMIDE 20 MG TABLET (FP) PO SCH (12:54)
[2020-05-23] MEDS ORDERED: INSULIN (NOVOLOG) ASPART 100 UNITS/ML 10ML VIAL ONE ×2 (12:59→16:45)
[2020-05-23] MEDS: BACLOFEN 10 MG TABLET (FP) PO SCH ×2 (13:01→21:11)
[2020-05-23] MEDS: DOCUSATE SODIUM 100 MG CAPSULE (FP) PO SCH (21:10)
[2020-05-23] MEDS: PREGABALIN 100 MG, PREGABALIN 50 MG PO SCH (21:10)
[2020-05-23] MEDS: BRIMONIDINE TARTRATE 0.2% OPHTHALMIC 5 ML BOTTLE OU SCH (21:11)
[2020-05-23] MEDS: ATORVASTATIN CA 20 MG TABLET (FP) PO SCH (21:11)
[2020-05-23] MEDS: POLYETHYLENE GLYCOL 3350 119 GM BTL PO SCH (21:12)
[2020-05-24] MEDS ORDERED: INSULIN (NOVOLOG) ASPART 100 UNITS/ML 10ML VIAL ONE ×3 (05:05→22:44)
[2020-05-24] MEDS: BACLOFEN 10 MG TABLET (FP) PO SCH ×3 (05:47→21:25)
[2020-05-24] MEDS: INSULIN SLIDING SCALE (NOVOLOG) 1 VIAL SQ SCH ×3 (05:48→16:52)
[2020-05-24] MEDS: ACETAMINOPHEN 325 MG TABLET (FP) PO PRN ×4 (05:48→21:26)
[2020-05-24] MEDS ORDERED: PREGABALIN 100 MG CAPSULE ONE ×2 (09:19→21:19)
[2020-05-24] MEDS ORDERED: PREGABALIN 50 MG CAPSULE ONE ×2 (09:19→21:19)
[2020-05-24] MEDS ORDERED: PT OWN MED DRAWER 7, Y5N ONE (09:21)
[2020-05-24] MEDS: FOLIC ACID 1 MG TABLET (FP) PO SCH (09:40)
[2020-05-24] MEDS: FERROUS SO4 325 MG TABLET (FP) PO SCH (09:40)
[2020-05-24] MEDS: ASPIRIN 81 MG CHEWABLE TABLETS PO SCH (09:40)
[2020-05-24] MEDS: FUROSEMIDE 20 MG TABLET (FP) PO SCH (09:41)
[2020-05-24] MEDS: POLYETHYLENE GLYCOL 3350 119 GM BTL PO SCH ×2 (09:42→21:26)
[2020-05-24] MEDS: PREGABALIN 100 MG, PREGABALIN 50 MG PO SCH ×2 (09:42→21:26)
[2020-05-24] MEDS: metoPROLOL SUCCINATE 25 MG TAB.SR.24H (FP) PO SCH (09:43)
[2020-05-24] MEDS: PANTOPRAZOLE 20 MG TABLET PO SCH (09:43)
[2020-05-24] MEDS: CALCIUM 500MG/VIT-D 200 UNITS COMBO TABLET (FP) PO SCH (09:43)
[2020-05-24] MEDS: MULTIVITAMINS THER W-MINERALS COMBO TABLET (FP) PO SCH (09:43)
[2020-05-24] MEDS: BRIMONIDINE TARTRATE 0.2% OPHTHALMIC 5 ML BOTTLE OU SCH ×2 (09:44→21:25)
[2020-05-24] MEDS: ENOXAPARIN NA (PORCINE) 40 MG/0.4 ML DISP.SYRIN SQ SCH (09:44)
[2020-05-24] MEDS: SERTRALINE HCL 50 MG TABLET (FP) PO SCH (09:44)
[2020-05-24] MEDS: LOSARTAN POTASSIUM 50 MG TABLET (FP) PO SCH (09:46)
[2020-05-24] MEDS: LORATADINE 10 MG TABLET PO SCH (09:46)
[2020-05-24] MEDS: DOCUSATE SODIUM 100 MG CAPSULE (FP) PO SCH (21:25)
[2020-05-24] MEDS: ATORVASTATIN CA 20 MG TABLET (FP) PO SCH (21:25)
[2020-05-25] MEDS: BACLOFEN 10 MG TABLET (FP) PO SCH ×3 (06:32→21:27)
[2020-05-25] MEDS: INSULIN SLIDING SCALE (NOVOLOG) 1 VIAL SQ SCH ×3 (06:39→17:02)
[2020-05-25] MEDS ORDERED: PREGABALIN 100 MG CAPSULE ONE ×2 (08:58→20:55)
[2020-05-25] MEDS ORDERED: PREGABALIN 50 MG CAPSULE ONE ×2 (08:58→20:54)
[2020-05-25] MEDS: PANTOPRAZOLE 20 MG TABLET PO SCH (09:22)
[2020-05-25] MEDS: ASPIRIN 81 MG CHEWABLE TABLETS PO SCH (09:22)
[2020-05-25] MEDS: FERROUS SO4 325 MG TABLET (FP) PO SCH (09:22)
[2020-05-25] MEDS: LOSARTAN POTASSIUM 50 MG TABLET (FP) PO SCH (09:22)
[2020-05-25] MEDS: FOLIC ACID 1 MG TABLET (FP) PO SCH (09:22)
[2020-05-25] MEDS: SERTRALINE HCL 50 MG TABLET (FP) PO SCH (09:23)
[2020-05-25] MEDS: PREGABALIN 100 MG, PREGABALIN 50 MG PO SCH ×2 (09:23→21:26)
[2020-05-25] MEDS: metoPROLOL SUCCINATE 25 MG TAB.SR.24H (FP) PO SCH (09:23)
[2020-05-25] MEDS: MULTIVITAMINS THER W-MINERALS COMBO TABLET (FP) PO SCH (09:23)
[2020-05-25] MEDS: LORATADINE 10 MG TABLET PO SCH (09:23)
--- NOTE | 2020-05-25 09:23 | PN ---
Progress Note, Physician Chief Complaint: Intractable low back pain History of Present Illness: right low back pain radiating to right LQ of the abd. Pelvis CT shows moderate amt of retained stool No radiculopathy. Pt states he had not been able to have BM's entire last week. Last BM he was straining to go. --------- Feeling much better today, pain decreased Received enema yesterday, Had BM overnight walked 75 ft with PT, unsteady gait, may need SNF - Current Medication List Current Medications: Active Medications Acetaminophen (Tylenol -) 650 mg PO Q4H PRN PRN Reason: PAIN LEVEL 6-10 Last Admin: 05/24/20 21:26 Dose: 650 mg Documented by: Al Hydroxide/Mg Hydroxide (Mylanta Oral Suspension -) 30 ml PO Q6H PRN PRN Reason: DYSPEPSIA Aspirin (Asa -) 81 mg PO DAILY [facility] Last Admin: 05/24/20 09:40 Dose: 81 mg Documented by: Atorvastatin Calcium (Lipitor -) 20 mg PO HS [facility] Last Admin: 05/24/20 21:25 Dose: 20 mg Documented by: Baclofen (Lioresal -) 10 mg PO TID [facility] Last Admin: 05/25/20 06:32 Dose: 10 mg Documented by: Brimonidine Tartrate (Alphagan 0.2% -) 1 drop OU BID [facility] Last Admin: 05/24/20 21:25 Dose: 1 drop Documented by: Calcium Carbonate/Cholecalciferol (Os-Wilbur 500+D -) 2 tab PO DAILY [facility] Last Admin: 05/24/20 09:43 Dose: 2 tab Documented by: Docusate Sodium (Colace -) 300 mg PO HS [facility] Last Admin: 05/24/20 21:25 Dose: 300 mg Documented by: Enoxaparin Sodium (Lovenox -) 40 mg SQ DAILY [facility] Last Admin: 05/24/20 09:44 Dose: 40 mg Documented by: Ferrous Sulfate (Feosol -) 325 mg PO DAILY [facility] Last Admin: 05/24/20 09:40 Dose: 325 mg Documented by: Folic Acid (Folic Acid -) 1 mg PO DAILY [facility] Last Admin: 05/24/20 09:40 Dose: 1 mg Documented by: Furosemide (Lasix -) 20 mg PO DAILY [facility] Last Admin: 05/24/20 09:41 Dose: 20 mg Documented by: Insulin Aspart (Novolog Vial Sliding Scale -) 1 vial SQ TIDAC [facility]; Protocol Last Admin: 05/25/20 06:39 Dose: Not Given Documented by: Loratadine (Claritin -) 10 mg PO DAILY [facility] Last Admin: 05/24/20 09:46 Dose: 10 mg Documented by: Losartan Potassium (Cozaar -) 100 mg PO DAILY [facility] Last Admin: 05/24/20 09:46 Dose: 100 mg Documented by: Metoprolol Succinate (Toprol Xl -) 25 mg PO DAILY [facility] Last Admin: 05/24/20 09:43 Dose: 25 mg Documented by: Multivitamins/Minerals (Theragran-M) 1 each PO DAILY [facility] Last Admin: 05/24/20 09:43 Dose: 1 each Documented by: Pantoprazole Sodium (Protonix -) 20 mg PO DAILY [facility] Last Admin: 05/24/20 09:43 Dose: 20 mg Documented by: Polyethylene Glycol (Miralax (For Daily Use) -) 17 gm PO BID [facility] Last Admin: 05/24/20 21:26 Dose: 17 gm Documented by: Pregabalin 100 mg/ Pregabalin (50 mg) 150 mg PO BID [facility] Last Admin: 05/24/20 21:26 Dose: 150 mg Documented by: Sertraline HCl (Zoloft -) 50 mg PO DAILY [facility] Last Admin: 05/24/20 09:44 Dose: 50 mg Documented by: Simethicone (Mylicon -) 80 mg PO Q4H PRN PRN Reason: DYSPEPSIA - Objective Vital Signs: Vital Signs Temperature 97.8 F 05/25/20 05:25 Pulse Rate 100 H 05/25/20 05:25 Respiratory Rate 20 05/25/20 05:25 Blood Pressure 148/90 05/25/20 05:25 O2 Sat by Pulse Oximetry (%) 97 05/25/20 05:25 Constitutional: Yes: Well Nourished, No Distress, Calm Cardiovascular: Yes: Regular Rate and Rhythm Respiratory: Yes: Regular, CTA Bilaterally Gastrointestinal: Yes: Normal Bowel Sounds, Soft Genitourinary: Yes: WNL Musculoskeletal: Yes: Muscle Weakness Extremities: Yes: WNL Edema: No Peripheral Pulses WNL: Yes Neurological: Yes: Alert, Oriented Psychiatric: Yes: Alert, Oriented Labs: CBC, BMP 05/23/20 06:40 05/23/20 06:00 Problem List - Problems (1) Constipation Assessment/Plan: -Continue Miralax BID -Senna 2 tabs HS Problems reviewed: Yes Code(s): K59.00 - CONSTIPATION, UNSPECIFIED (2) Fall Assessment/Plan: -About 1.5 months ago -Likely not related-denies any radiculopathy, SLT negative -SNF placement -Physical therapy Problems reviewed: Yes Code(s): W19.XXXA - UNSPECIFIED FALL, INITIAL ENCOUNTER Qualifiers: Encounter type: initial encounter Qualified Code(s): W19.XXXA - Unspecified fall, initial encounter (3) Abdominal pain Assessment/Plan: -RLQ -2/2 to constipation Problems reviewed: Yes Code(s): R10.9 - UNSPECIFIED ABDOMINAL PAIN (4) Diabetes Assessment/Plan: -BGM AC HS -diabetic sodium diet -ISS Problems reviewed: Yes Code(s): E11.9 - TYPE 2 DIABETES MELLITUS WITHOUT COMPLICATIONS Qualifiers: Diabetes mellitus type: type 2 Diabetes mellitus long term care pharmacist insulin use: with long term care pharmacist use Diabetes mellitus complication status: with unspecified complications (5) Low back pain Assessment/Plan: -Seen by Neurology -CT lumbar final read pending -On Lyrica at home-continue -Continue baclofen 10 mg po BID PRN -Previous CT lumbar-Lumbar stenosis with fusion Problems reviewed: Yes Code(s): M54.5 - LOW BACK PAIN Assessment/Plan See problem list Repeat COVID 19 PCR in preparation for dc to SNF Pt's first preferance: [facility] Second choice: [facility]
[2020-05-25] MEDS: FUROSEMIDE 20 MG TABLET (FP) PO SCH (09:24)
[2020-05-25] MEDS: ENOXAPARIN NA (PORCINE) 40 MG/0.4 ML DISP.SYRIN SQ SCH (09:24)
[2020-05-25] MEDS: BRIMONIDINE TARTRATE 0.2% OPHTHALMIC 5 ML BOTTLE OU SCH ×2 (09:25→21:26)
[2020-05-25] MEDS ORDERED: PT OWN MED DRAWER 7, Y5N ONE (09:26)
[2020-05-25] MEDS: CALCIUM 500MG/VIT-D 200 UNITS COMBO TABLET (FP) PO SCH (09:29)
[2020-05-25] MEDS: POLYETHYLENE GLYCOL 3350 119 GM BTL PO SCH ×2 (09:29→21:27)
[2020-05-25] MEDS: ACETAMINOPHEN 325 MG TABLET (FP) PO PRN (18:13)
[2020-05-25] MEDS: ATORVASTATIN CA 20 MG TABLET (FP) PO SCH (21:26)
[2020-05-25] MEDS: DOCUSATE SODIUM 100 MG CAPSULE (FP) PO SCH (21:26)
[2020-05-25] MEDS ORDERED: ZOLPIDEM TARTRATE 5 MG TABLET PO ONE (23:21)
[2020-05-26] MEDS: INSULIN SLIDING SCALE (NOVOLOG) 1 VIAL SQ SCH ×3 (06:08→17:39)
[2020-05-26] MEDS: BACLOFEN 10 MG TABLET (FP) PO SCH ×2 (06:08→14:19)
[2020-05-26] MEDS ORDERED: INSULIN (LEVEMIR) 100 UNITS/ML UNITS SQ ONE (06:20)
[2020-05-26] MEDS ORDERED: INSULIN (NOVOLOG) ASPART 100 UNITS/ML 10ML VIAL ONE (06:20)
[2020-05-26] MEDS ORDERED: INSULIN (LEVEMIR) 100 UNITS/ML UNITS SQ SCH (07:00)
[2020-05-26 07:44] LABS: BASO % 0.8 % (0-2.0); EOS % 2.4 % (0-4.5); HEMATOCRIT 37.5 % (35.4-49); HEMOGLOBIN 12.6 GM/dL (11.7-16.9); LYMPH % 41.3 % (8-40); MCH 31.3 pg (25.7-33.7); MCHC 33.6 g/dl (32.0-35.9); MEAN CELL VOLUME 93.3 fl (80-96); MONO % 7.9 % (3.8-10.2); NEUT % 47.6 % (42.8-82.8); PLATELET COUNT 193 K/MM3 (134-434); RBC 4.02 M/mm3 (4.00-5.60); RDW 17.3 % (11.9-15.9); WHITE BLOOD COUNT 6.4 K/mm3 (4.0-10.0)
--- NOTE | 2020-05-26 07:47 | PN ---
Progress Note, Physician Chief Complaint: Intractable low back pain History of Present Illness: right low back pain radiating to right LQ of the abd. Pelvis CT shows moderate amt of retained stool No radiculopathy. Pt states he had not been able to have BM's entire last week. Last BM he was straining to go. --------- Pain improved Had BM yesterday walked 75 ft with PT, unsteady gait, may need SNF --------- Continues to have mild RLQ pain AXR some stool retained, with no gross constipation, some distended bowel loops - Current Medication List Current Medications: Active Medications Acetaminophen (Tylenol -) 650 mg PO Q4H PRN PRN Reason: PAIN LEVEL 6-10 Last Admin: 05/25/20 18:13 Dose: 650 mg Documented by: Al Hydroxide/Mg Hydroxide (Mylanta Oral Suspension -) 30 ml PO Q6H PRN PRN Reason: DYSPEPSIA Aspirin (Asa -) 81 mg PO DAILY [facility] Last Admin: 05/25/20 09:22 Dose: 81 mg Documented by: Atorvastatin Calcium (Lipitor -) 20 mg PO HS [facility] Last Admin: 05/25/20 21:26 Dose: 20 mg Documented by: Baclofen (Lioresal -) 10 mg PO TID [facility] Last Admin: 05/26/20 06:08 Dose: 10 mg Documented by: Brimonidine Tartrate (Alphagan 0.2% -) 1 drop OU BID [facility] Last Admin: 05/25/20 21:26 Dose: 1 drop Documented by: Calcium Carbonate/Cholecalciferol (Os-Wilbur 500+D -) 2 tab PO DAILY [facility] Last Admin: 05/25/20 09:29 Dose: 2 tab Documented by: Docusate Sodium (Colace -) 300 mg PO HS [facility] Last Admin: 05/25/20 21:26 Dose: 300 mg Documented by: Enoxaparin Sodium (Lovenox -) 40 mg SQ DAILY [facility] Last Admin: 05/25/20 09:24 Dose: 40 mg Documented by: Ferrous Sulfate (Feosol -) 325 mg PO DAILY [facility] Last Admin: 05/25/20 09:22 Dose: 325 mg Documented by: Folic Acid (Folic Acid -) 1 mg PO DAILY [facility] Last Admin: 05/25/20 09:22 Dose: 1 mg Documented by: Furosemide (Lasix -) 20 mg PO DAILY [facility] Last Admin: 05/25/20 09:24 Dose: 20 mg Documented by: Insulin Aspart (Novolog Vial Sliding Scale -) 1 vial SQ TIDAC [facility]; Protocol Last Admin: 05/26/20 06:08 Dose: 2 unit Documented by: Insulin Detemir (Levemir Vial) 10 units SQ AM [facility] Last Admin: 05/26/20 06:08 Dose: 10 unit Documented by: Loratadine (Claritin -) 10 mg PO DAILY [facility] Last Admin: 05/25/20 09:23 Dose: 10 mg Documented by: Losartan Potassium (Cozaar -) 100 mg PO DAILY [facility] Last Admin: 05/25/20 09:22 Dose: 100 mg Documented by: Metoprolol Succinate (Toprol Xl -) 25 mg PO DAILY [facility] Last Admin: 05/25/20 09:23 Dose: 25 mg Documented by: Multivitamins/Minerals (Theragran-M) 1 each PO DAILY [facility] Last Admin: 05/25/20 09:23 Dose: 1 each Documented by: Pantoprazole Sodium (Protonix -) 20 mg PO DAILY [facility] Last Admin: 05/25/20 09:22 Dose: 20 mg Documented by: Polyethylene Glycol (Miralax (For Daily Use) -) 17 gm PO BID [facility] Last Admin: 05/25/20 21:27 Dose: 17 gm Documented by: Pregabalin 100 mg/ Pregabalin (50 mg) 150 mg PO BID [facility] Last Admin: 05/25/20 21:26 Dose: 150 mg Documented by: Sertraline HCl (Zoloft -) 50 mg PO DAILY [facility] Last Admin: 05/25/20 09:23 Dose: 50 mg Documented by: Simethicone (Mylicon -) 80 mg PO Q4H PRN PRN Reason: DYSPEPSIA - Objective Vital Signs: Vital Signs Temperature 98.5 F 05/26/20 05:40 Pulse Rate 99 H 05/26/20 05:40 Respiratory Rate 22 H 05/26/20 05:40 Blood Pressure 104/62 05/26/20 05:40 O2 Sat by Pulse Oximetry (%) 97 05/26/20 05:40 Constitutional: Yes: Well Nourished, No Distress, Calm Cardiovascular: Yes: Regular Rate and Rhythm Respiratory: Yes: Regular, CTA Bilaterally Gastrointestinal: Yes: Normal Bowel Sounds, Soft Genitourinary: Yes: WNL Musculoskeletal: Yes: Muscle Weakness Extremities: Yes: WNL Edema: No Peripheral Pulses WNL: Yes Neurological: Yes: Alert, Oriented Psychiatric: Yes: Alert, Oriented Problem List - Problems (1) Constipation Assessment/Plan: -Continue Miralax BID -Senna 2 tabs HS -Enema x 1 Problems reviewed: Yes Code(s): K59.00 - CONSTIPATION, UNSPECIFIED (2) Fall Assessment/Plan: -About 1.5 months ago -Likely not related-denies any radiculopathy, SLT negative -SNF placement -Physical therapy Problems reviewed: Yes Code(s): W19.XXXA - UNSPECIFIED FALL, INITIAL ENCOUNTER Qualifiers: Encounter type: initial encounter Qualified Code(s): W19.XXXA - Unspecified fall, initial encounter (3) Abdominal pain Assessment/Plan: -RLQ -AXR reviewed -Bladder scan now -If retaining>300 ml, insert sethi -Check UA UC Problems reviewed: Yes Code(s): R10.9 - UNSPECIFIED ABDOMINAL PAIN (4) Diabetes Assessment/Plan: -BGM AC HS -diabetic sodium diet -ISS Problems reviewed: Yes Code(s): E11.9 - TYPE 2 DIABETES MELLITUS WITHOUT COMPLICATIONS Qualifiers: Diabetes mellitus type: type 2 Diabetes mellitus halfway insulin use: with halfway use Diabetes mellitus complication status: with unspecified complications (5) Low back pain Assessment/Plan: -Seen by Neurology -CT lumbar final read pending -On Lyrica at home-continue -Continue baclofen 10 mg po BID PRN -Previous CT lumbar-Lumbar stenosis with fusion Problems reviewed: Yes Code(s): M54.5 - LOW BACK PAIN Assessment/Plan See problem list Repeat COVID 19 PCR in preparation for dc to SNF Pt's first preferance: [facility] Second choice: [facility]
[2020-05-26 08:20] LABS: ALBUMIN 3.4 g/dl (3.4-5.0); BILIRUBIN,TOTAL 0.9 mg/dL (0.2-1); CREATININE 0.9 mg/dL (0.55-1.3); POTASSIUM 4.4 mmol/L (3.5-5.1); TOT PROT 7.2 g/dl (6.4-8.2)
[2020-05-26] MEDS ORDERED: SENNOSIDES 8.6MG TABLET (FP) PO PRN (09:37)
[2020-05-26] MEDS ORDERED: PREGABALIN 50 MG CAPSULE ONE (09:48)
[2020-05-26] MEDS ORDERED: PREGABALIN 100 MG CAPSULE ONE (09:49)
[2020-05-26] MEDS: CALCIUM 500MG/VIT-D 200 UNITS COMBO TABLET (FP) PO SCH (09:52)
[2020-05-26] MEDS: PANTOPRAZOLE 20 MG TABLET PO SCH (09:52)
[2020-05-26] MEDS: metoPROLOL SUCCINATE 25 MG TAB.SR.24H (FP) PO SCH (09:52)
[2020-05-26] MEDS: FOLIC ACID 1 MG TABLET (FP) PO SCH (09:53)
[2020-05-26] MEDS: PREGABALIN 100 MG, PREGABALIN 50 MG PO SCH (09:53)
[2020-05-26] MEDS: LORATADINE 10 MG TABLET PO SCH (09:53)
[2020-05-26] MEDS: LOSARTAN POTASSIUM 50 MG TABLET (FP) PO SCH (09:53)
[2020-05-26] MEDS: MULTIVITAMINS THER W-MINERALS COMBO TABLET (FP) PO SCH (09:53)
[2020-05-26] MEDS: FERROUS SO4 325 MG TABLET (FP) PO SCH (09:53)
[2020-05-26] MEDS: SERTRALINE HCL 50 MG TABLET (FP) PO SCH (09:53)
[2020-05-26] MEDS: ASPIRIN 81 MG CHEWABLE TABLETS PO SCH (09:53)
[2020-05-26] MEDS: FUROSEMIDE 20 MG TABLET (FP) PO SCH (09:54)
[2020-05-26] MEDS: ENOXAPARIN NA (PORCINE) 40 MG/0.4 ML DISP.SYRIN SQ SCH (09:54)
[2020-05-26] MEDS ORDERED: PT OWN MED DRAWER 7, Y5N ONE (10:00)
[2020-05-26] MEDS: BRIMONIDINE TARTRATE 0.2% OPHTHALMIC 5 ML BOTTLE OU SCH (10:07)
[2020-05-26] MEDS ORDERED: POLYETHYLENE GLYCOL 3350 119 GM BTL PO SCH (14:00)
[2020-05-26] MEDS: ACETAMINOPHEN 325 MG TABLET (FP) PO PRN (18:07)
[2020-05-26 18:30] VITALS: BP 122/96; PULSE 119; TEMP 98.5
== END 2020-05-26 18:36 | DRG 552 ==
LOC: JER 13:37 → JERBED 19:03 → J8W 05-23 10:53
PROVIDERS: ADMIT Internal Medicine; ATTEND Family Medicine
DX: M54.5 Low back pain (principal); G95.9 Disease of spinal cord, unspecified; K59.00 Constipation, unspecified; E78.5 Hyperlipidemia, unspecified; E11.9 Type 2 diabetes mellitus without complications; I10 Essential (primary) hypertension; R10.31 Right lower quadrant pain; K21.9 Gastro-esophageal reflux disease without esophagitis
CPT/HCPCS: 36415; 70450-TC; 71046-TC-FY; 71101-TC-RT-FY; 72131-TC; 72192-TC; 73523-TC-FY; 74019-TC-FY; 80053; 81003; 82550; 82553; 82607; 82962; 83036; 83735; 84100; 85025; 93005; 93010; 97116-GP; 97161-GP; 99285-25; J0475; U0003

== ENCOUNTER 2021-01-21 10:22 | Inpatient (IN) | payer OTHER, BC ==
[2021-01-21 10:34] VITALS: BMI 34.2
[2021-01-21] MEDS ORDERED: LACTATED RINGERS SOLUTION 1000 ML INFUS.BAG IV ONE (11:01)
[2021-01-21 11:23] LABS: BASO % 0.1 % (0-2.0); EOS % 0.1 % (0-4.5); HEMATOCRIT 39.4 % (35.4-49); HEMOGLOBIN 13.1 GM/dL (11.7-16.9); LYMPH % 17.2 % (8-40); MCH 32.9 pg (25.7-33.7); MCHC 33.2 g/dl (32.0-35.9); MEAN CELL VOLUME 99.1 fl (80-96); MEAN PLT VOLUME 8.3 fl (7.5-11.1); MONO % 10.3 % (3.8-10.2); NEUT % 72.3 % (42.8-82.8); PLATELET COUNT 183 K/MM3 (134-434); RBC 3.98 M/mm3 (4.00-5.60); RDW 16.3 % (11.9-15.9); WHITE BLOOD COUNT 5.7 K/mm3 (4.0-10.0)
[2021-01-21 11:25] LABS: URINE APPEARANCE CLEAR; URINE BILIRUBIN NEGATIVE (NEGATIVE); URINE COLOR YELLOW; URINE GLUCOSE (UA) 3+ (NEGATIVE); URINE KETONE 1+ (NEGATIVE); URINE LEUK ESTERASE NEGATIVE (NEGATIVE); URINE NITRITE NEGATIVE (NEGATIVE); URINE PROTEIN TRACE (NEGATIVE); URINE UROBILINOGEN 0.2 mg/dL (0.2-1.0)
[2021-01-21 11:28] LABS: INR 1.36 (0.83-1.09); PROTHROMBIN TIME (PATIENT) 16.6 SEC (9.7-13.0)
[2021-01-21 11:31] LABS: ACTIVATED PTT 31.9 SECONDS (25.2-36.5)
[2021-01-21 11:43] LABS: VENOUS BASE EXCESS -2.9 mmol/L (-2-2); VENOUS O2 SATURATION 92.5 % (70-80); VENOUS PCO2 43.8 mmHg (38-52); VENOUS PH 7.337 (7.310-7.410)
[2021-01-21 11:54] LABS: CHLORIDE 107 mmol/L (98-107); POTASSIUM 4.5 mmol/L (3.5-5.1); SODIUM 139 mmol/L (136-145)
[2021-01-21 11:56] LABS: CALCIUM 8.8 mg/dL (8.5-10.1)
[2021-01-21 11:57] LABS: ALBUMIN 3.3 g/dl (3.4-5.0); ANION GAP 5 MMOL/L (8-16); CO2 26 mmol/L (21-32); GLUCOSE,RANDOM 160 mg/dL (74-106)
[2021-01-21 11:59] LABS: BILIRUBIN,DIRECT 0.5 mg/dL (0.0-0.2)
[2021-01-21 12:00] LABS: CREATININE 1.2 mg/dL (0.55-1.3); SGOT/AST 33 U/L (15-37); SGPT/ALT 21 U/L (13-61)
[2021-01-21 12:01] LABS: BILIRUBIN,TOTAL 1.2 mg/dL (0.2-1)
[2021-01-21 12:02] LABS: ALK PHOS 112 U/L (45-117)
[2021-01-21 12:03] LABS: LDH 257 U/L (87-246)
[2021-01-21] MEDS ORDERED: CEFTRIAXONE 1,000 MG in DEXTROSE 5%-WATER - 50 ML IVPB ONE (12:22)
[2021-01-21] MEDS ORDERED: AZITHROMYCIN IVPB 500 MG in DEXTROSE 5%-WATER - 250 ML IVPB ONE (12:22)
[2021-01-21 12:23] LABS: LACTIC ACID 3.4 mmol/L (0.4-2.0)
[2021-01-21] MEDS ORDERED: AZITHROMYCIN IVPB 500 MG/250 ML BAG IVPB ONE (12:25)
[2021-01-21] MEDS ORDERED: CEFTRIAXONE 1 GM/50 ML BAG ONE (12:25)
[2021-01-21] MEDS ORDERED: SODIUM CHLORIDE 0.9% 500 ML INFUS.BAG IV ONE (12:28)
[2021-01-21] MEDS ORDERED: ENOXAPARIN NA (PORCINE) 40 MG/0.4 ML DISP.SYRIN SQ ONE (16:15)
[2021-01-21] MEDS ORDERED: SODIUM CHLORIDE 1,000 ML IV SCH ×2 (16:15→16:42)
[2021-01-21] MEDS: ENOXAPARIN NA (PORCINE) 40 MG/0.4 ML DISP.SYRIN SQ SCH (16:19)
[2021-01-21] MEDS: PANTOPRAZOLE 40 MG TABLET PO SCH (16:26)
[2021-01-21 17:10] LABS: LACTIC ACID 3.4 mmol/L (0.4-2.0)
[2021-01-21] MEDS: INSULIN SLIDING SCALE (NOVOLOG) 1 VIAL SQ SCH (17:28)
[2021-01-21] MEDS ORDERED: HEPARIN NA (PORCINE) 5,000 UNITS/ML 1ML VIAL SQ SCH (18:00)
[2021-01-21] MEDS ORDERED: LORazepam 2 MG/ML SDV VIAL IVPUSH ONE (18:19)
[2021-01-21] MEDS ORDERED: LORazepam 2 MG/ML SDV VIAL ONE (18:33)
[2021-01-21] MEDS ORDERED: amLODIPine BESYLATE 5 MG TABLET (FP) ONE (20:34)
[2021-01-21] MEDS ORDERED: LOSARTAN POTASSIUM 50 MG TABLET ONE (20:34)
[2021-01-21] MEDS: LOSARTAN POTASSIUM 50 MG TABLET PO SCH (20:52)
[2021-01-21] MEDS: amLODIPine BESYLATE 5 MG TABLET (FP) PO SCH (20:52)
[2021-01-22] MEDS: INSULIN SLIDING SCALE (NOVOLOG) 1 VIAL SQ SCH ×5 (00:04→21:24)
[2021-01-22 08:07] LABS: BASO % 0.2 % (0-2.0); EOS % 0.1 % (0-4.5); HEMATOCRIT 34.8 % (35.4-49); LYMPH % 11.2 % (8-40); MCH 33.8 pg (25.7-33.7); MCHC 34.4 g/dl (32.0-35.9); MEAN CELL VOLUME 98.2 fl (80-96); MEAN PLT VOLUME 8.8 fl (7.5-11.1); MONO % 10.4 % (3.8-10.2); NEUT % 78.1 % (42.8-82.8); PLATELET COUNT 168 K/MM3 (134-434); RBC 3.55 M/mm3 (4.00-5.60); RDW 16.4 % (11.9-15.9); WHITE BLOOD COUNT 5.6 K/mm3 (4.0-10.0)
[2021-01-22 08:09] LABS: CHLORIDE 104 mmol/L (98-107); POTASSIUM 3.9 mmol/L (3.5-5.1); SODIUM 141 mmol/L (136-145)
[2021-01-22 08:23] LABS: ALBUMIN 3.4 g/dl (3.4-5.0); ANION GAP 14 MMOL/L (8-16); CALCIUM 8.7 mg/dL (8.5-10.1); CO2 23 mmol/L (21-32); GLUCOSE,RANDOM 142 mg/dL (74-106)
[2021-01-22 08:24] LABS: BLOOD UREA NITROGEN 21.8 mg/dL (7-18); MAGNESIUM 2.2 mg/dL (1.8-2.4)
[2021-01-22 08:26] LABS: PHOSPHOROUS 1.5 mg/dL (2.5-4.9); SGOT/AST 53 U/L (15-37); SGPT/ALT 23 U/L (13-61)
[2021-01-22 08:28] LABS: ALK PHOS 107 U/L (45-117); BILIRUBIN,TOTAL 1.5 mg/dL (0.2-1); CREATININE 0.8 mg/dL (0.55-1.3); TOT PROT 7.1 g/dl (6.4-8.2)
[2021-01-22] MEDS ORDERED: amLODIPine BESYLATE 5 MG TABLET (FP) ONE (10:06)
[2021-01-22] MEDS ORDERED: PANTOPRAZOLE 40 MG TABLET ONE (10:06)
[2021-01-22] MEDS ORDERED: AZITHROMYCIN IVPB 500 MG/250 ML BAG IVPB ONE (10:07)
[2021-01-22] MEDS ORDERED: CEFTRIAXONE 1 GM/50 ML BAG ONE (10:07)
[2021-01-22] MEDS ORDERED: LOSARTAN POTASSIUM 50 MG TABLET ONE (10:07)
[2021-01-22] MEDS ORDERED: ENOXAPARIN NA (PORCINE) 40 MG/0.4 ML DISP.SYRIN SQ ONE (10:07)
[2021-01-22] MEDS: amLODIPine BESYLATE 5 MG TABLET (FP) PO SCH (10:19)
[2021-01-22] MEDS: PANTOPRAZOLE 40 MG TABLET PO SCH (10:19)
[2021-01-22] MEDS: CEFTRIAXONE 1 GM in DEXTROSE 5%-WATER - 50 ML IVPB SCH (10:19)
[2021-01-22] MEDS: ENOXAPARIN NA (PORCINE) 40 MG/0.4 ML DISP.SYRIN SQ SCH (10:19)
[2021-01-22] MEDS: LOSARTAN POTASSIUM 50 MG TABLET PO SCH (10:19)
[2021-01-22] MEDS: AZITHROMYCIN IVPB 500 MG/250 ML BAG IVPB SCH (11:21)
[2021-01-22] MEDS ORDERED: LORazepam 2 MG/ML SDV VIAL IVPB ONE (14:00)
[2021-01-22] MEDS ORDERED: LORazepam 2 MG/ML SDV VIAL ONE (14:05)
[2021-01-22 14:55] LABS: LACTIC ACID 3.1 mmol/L (0.4-2.0)
[2021-01-22] MEDS ORDERED: LORazepam 1 MG TABLET PO PRN (16:56)
[2021-01-22] MEDS ORDERED: oxyCODONE HCL 5 MG TABLET PO PRN (17:00)
[2021-01-22] MEDS ORDERED: HYDROmorphone HCL 2 MG TABLET PO PRN (17:01)
[2021-01-22] MEDS: PREGABALIN 75 MG CAPSULE PO SCH (21:20)
[2021-01-22] MEDS: DOCUSATE SODIUM 100 MG CAPSULE (FP) PO SCH (21:24)
[2021-01-23] MEDS: INSULIN SLIDING SCALE (NOVOLOG) 1 VIAL SQ SCH ×3 (06:04→16:54)
[2021-01-23] MEDS ORDERED: cefTRIAXone SODIUM 1 GM VIAL ONE (09:06)
[2021-01-23] MEDS ORDERED: DEXTROSE 5%-WATER - 50 ML IVPB ONE (09:06)
[2021-01-23] MEDS: AZITHROMYCIN IVPB 500 MG/250 ML BAG IVPB SCH (09:14)
[2021-01-23] MEDS: CEFTRIAXONE 1 GM in DEXTROSE 5%-WATER - 50 ML IVPB SCH (09:14)
[2021-01-23] MEDS: ENOXAPARIN NA (PORCINE) 40 MG/0.4 ML DISP.SYRIN SQ SCH (09:15)
[2021-01-23] MEDS: PREGABALIN 75 MG CAPSULE PO SCH (09:15)
[2021-01-23] MEDS: PANTOPRAZOLE 40 MG TABLET PO SCH (09:15)
[2021-01-23] MEDS: LOSARTAN POTASSIUM 50 MG TABLET PO SCH (09:15)
[2021-01-23] MEDS: amLODIPine BESYLATE 5 MG TABLET (FP) PO SCH (09:15)
[2021-01-23 10:39] LABS: BASO % 0.3 % (0-2.0); HEMATOCRIT 37.2 % (35.4-49); HEMOGLOBIN 12.7 GM/dL (11.7-16.9); LYMPH % 8.1 % (8-40); MCH 33.2 pg (25.7-33.7); MCHC 34.1 g/dl (32.0-35.9); MEAN CELL VOLUME 97.4 fl (80-96); MEAN PLT VOLUME 8.5 fl (7.5-11.1); MONO % 8.8 % (3.8-10.2); NEUT % 82.8 % (42.8-82.8); PLATELET COUNT 171 K/MM3 (134-434); RBC 3.82 M/mm3 (4.00-5.60); WHITE BLOOD COUNT 7.8 K/mm3 (4.0-10.0)
[2021-01-23 11:12] LABS: ALBUMIN 3.2 g/dl (3.4-5.0); BILIRUBIN,TOTAL 1.5 mg/dL (0.2-1); BLOOD UREA NITROGEN 24.9 mg/dL (7-18); CALCIUM 9.1 mg/dL (8.5-10.1); CREATININE 0.8 mg/dL (0.55-1.3); POTASSIUM 3.5 mmol/L (3.5-5.1); TOT PROT 7.3 g/dl (6.4-8.2)
[2021-01-23] MEDS: POTASSIUM CHLORIDE 10 MEQ in SODIUM CHLORIDE 0.45% 1,000 ML IVPB SCH (18:26)
[2021-01-23] MEDS: DOCUSATE SODIUM 100 MG CAPSULE (FP) PO SCH (21:37)
[2021-01-24 08:16] LABS: POTASSIUM 3.4 mmol/L (3.5-5.1)
[2021-01-24 08:24] LABS: CALCIUM 9.3 mg/dL (8.5-10.1)
[2021-01-24 08:28] LABS: CREATININE 0.7 mg/dL (0.55-1.3)
[2021-01-24 08:29] LABS: BILIRUBIN,TOTAL 1.8 mg/dL (0.2-1); TOT PROT 7.1 g/dl (6.4-8.2)
[2021-01-24] MEDS ORDERED: POTASSIUM CHLORIDE TABS 20 MEQ TABLET.ER (FP) PO ONE ×2 (09:00→12:45)
[2021-01-24] MEDS ORDERED: cefTRIAXone SODIUM 1 GM VIAL ONE (10:51)
[2021-01-24] MEDS ORDERED: DEXTROSE 5%-WATER - 50 ML IVPB ONE (10:52)
[2021-01-24] MEDS: PANTOPRAZOLE 40 MG TABLET PO SCH (11:38)
[2021-01-24] MEDS: LOSARTAN POTASSIUM 50 MG TABLET PO SCH (11:38)
[2021-01-24] MEDS: CEFTRIAXONE 1 GM in DEXTROSE 5%-WATER - 50 ML IVPB SCH (11:38)
[2021-01-24] MEDS: amLODIPine BESYLATE 5 MG TABLET (FP) PO SCH (11:38)
[2021-01-24] MEDS: ENOXAPARIN NA (PORCINE) 40 MG/0.4 ML DISP.SYRIN SQ SCH (11:39)
[2021-01-24] MEDS: AZITHROMYCIN IVPB 500 MG/250 ML BAG IVPB SCH (12:21)
[2021-01-24] MEDS: POTASSIUM CHLORIDE 10 MEQ in SODIUM CHLORIDE 0.45% 1,000 ML IVPB SCH (18:29)
[2021-01-24] MEDS: DOCUSATE SODIUM 100 MG CAPSULE (FP) PO SCH (21:56)
[2021-01-25] MEDS ORDERED: cefTRIAXone SODIUM 1 GM VIAL ONE (10:33)
[2021-01-25] MEDS ORDERED: DEXTROSE 5%-WATER - 50 ML IVPB ONE (10:34)
[2021-01-25] MEDS: CEFTRIAXONE 1 GM in DEXTROSE 5%-WATER - 50 ML IVPB SCH (11:25)
[2021-01-25] MEDS: PANTOPRAZOLE 40 MG TABLET PO SCH (11:25)
[2021-01-25] MEDS: ENOXAPARIN NA (PORCINE) 40 MG/0.4 ML DISP.SYRIN SQ SCH (11:25)
[2021-01-25] MEDS: LOSARTAN POTASSIUM 50 MG TABLET PO SCH (11:25)
[2021-01-25] MEDS: amLODIPine BESYLATE 5 MG TABLET (FP) PO SCH (11:25)
[2021-01-25 16:15] LABS: POTASSIUM 4.1 mmol/L (3.5-5.1)
[2021-01-25 16:17] LABS: BLOOD UREA NITROGEN 21.2 mg/dL (7-18); MAGNESIUM 2.1 mg/dL (1.8-2.4)
[2021-01-25 16:20] LABS: CREATININE 0.7 mg/dL (0.55-1.3)
[2021-01-25] MEDS ORDERED: PT OWN MED DRAWER 7, Y5N ONE (17:25)
[2021-01-25] MEDS: ACETAMINOPHEN 325 MG TABLET (FP) PO PRN (21:43)
[2021-01-26 09:26] LABS: POTASSIUM 4.2 mmol/L (3.5-5.1)
[2021-01-26] MEDS ORDERED: DEXTROSE 5%-WATER - 50 ML IVPB ONE (09:30)
[2021-01-26] MEDS ORDERED: cefTRIAXone SODIUM 1 GM VIAL ONE (09:30)
[2021-01-26 09:34] LABS: CALCIUM 8.8 mg/dL (8.5-10.1)
[2021-01-26 09:35] LABS: BLOOD UREA NITROGEN 16.3 mg/dL (7-18)
[2021-01-26 09:37] LABS: CREATININE 0.6 mg/dL (0.55-1.3)
[2021-01-26 09:39] LABS: TOT PROT 6.9 g/dl (6.4-8.2)
[2021-01-26] MEDS ORDERED: ALBUTEROL SO4 2.5/IPRATROPIUM 0.5 INH SOL 3 ML VIAL.NEB. NEB PRN (09:42)
[2021-01-26] MEDS: CEFTRIAXONE 1 GM in DEXTROSE 5%-WATER - 50 ML IVPB SCH (10:11)
[2021-01-26] MEDS: PANTOPRAZOLE 40 MG TABLET PO SCH (10:11)
[2021-01-26] MEDS: ENOXAPARIN NA (PORCINE) 40 MG/0.4 ML DISP.SYRIN SQ SCH (10:11)
[2021-01-26] MEDS: amLODIPine BESYLATE 5 MG TABLET (FP) PO SCH (10:11)
[2021-01-26] MEDS: LOSARTAN POTASSIUM 50 MG TABLET PO SCH (10:11)
[2021-01-26] MEDS: ACETAMINOPHEN 325 MG TABLET (FP) PO PRN (18:17)
[2021-01-26] MEDS: DOCUSATE SODIUM 100 MG CAPSULE (FP) PO SCH (21:15)
[2021-01-27 08:32] LABS: BASO % 0.5 % (0-2.0); EOS % 2.8 % (0-4.5); HEMATOCRIT 36.5 % (35.4-49); HEMOGLOBIN 12.4 GM/dL (11.7-16.9); LYMPH % 33.3 % (8-40); MCH 33.2 pg (25.7-33.7); MCHC 33.9 g/dl (32.0-35.9); MEAN PLT VOLUME 9.1 fl (7.5-11.1); MONO % 11.1 % (3.8-10.2); NEUT % 52.3 % (42.8-82.8); PLATELET COUNT 243 K/MM3 (134-434); RBC 3.72 M/mm3 (4.00-5.60); RDW 15.3 % (11.9-15.9); WHITE BLOOD COUNT 4.6 K/mm3 (4.0-10.0)
[2021-01-27 08:46] LABS: POTASSIUM 3.8 mmol/L (3.5-5.1)
[2021-01-27 08:58] LABS: ALBUMIN 3.1 g/dl (3.4-5.0)
[2021-01-27 09:00] LABS: BLOOD UREA NITROGEN 13.2 mg/dL (7-18); CALCIUM 8.8 mg/dL (8.5-10.1)
[2021-01-27 09:01] LABS: CREATININE 0.7 mg/dL (0.55-1.3)
[2021-01-27 09:02] LABS: BILIRUBIN,TOTAL 0.9 mg/dL (0.2-1); TOT PROT 7.1 g/dl (6.4-8.2)
[2021-01-27] MEDS ORDERED: DEXTROSE 5%-WATER - 50 ML IVPB ONE (10:14)
[2021-01-27] MEDS ORDERED: cefTRIAXone SODIUM 1 GM VIAL ONE (10:14)
[2021-01-27] MEDS: ENOXAPARIN NA (PORCINE) 40 MG/0.4 ML DISP.SYRIN SQ SCH (10:23)
[2021-01-27] MEDS: LOSARTAN POTASSIUM 50 MG TABLET PO SCH (10:24)
[2021-01-27] MEDS: amLODIPine BESYLATE 5 MG TABLET (FP) PO SCH (10:24)
[2021-01-27] MEDS: CEFTRIAXONE 1 GM in DEXTROSE 5%-WATER - 50 ML IVPB SCH (10:24)
[2021-01-27] MEDS: PANTOPRAZOLE 40 MG TABLET PO SCH (10:24)
[2021-01-27] MEDS: ACETAMINOPHEN 325 MG TABLET (FP) PO PRN ×2 (13:58→20:44)
[2021-01-27 19:02] VITALS: BP 149/91; PULSE 103; TEMP 97.6
== END 2021-01-27 22:19 | DRG 193 ==
LOC: JER 10:22 → JERBED 12:58 → J4W 01-22 10:43
PROVIDERS: ADMIT Internal Medicine; ATTEND Family Medicine
DX: J18.9 Pneumonia, unspecified organism (principal); G93.41 Metabolic encephalopathy; E87.2 Acidosis; E11.9 Type 2 diabetes mellitus without complications; I10 Essential (primary) hypertension; E78.5 Hyperlipidemia, unspecified; K21.9 Gastro-esophageal reflux disease without esophagitis; R41.82 Altered mental status, unspecified; E87.6 Hypokalemia
CPT/HCPCS: 36415; 70450-TC; 71045-TC-FY; 71275-TC; 74176-TC; 80048; 80053; 81003; 82248; 82308; 82550; 82553; 82607; 82728; 82803; 82962; 83036; 83605; 83615; 83690; 83735; 84100; 84439; 84443; 84484; 85025; 85379; 85610; 85730; 86140; 86769; 87040; 87086; 87324; 87449; 87804; 87899; 93005; 93010; 93308; 94010; 97116-GP; 97161-GP; 99285-25; C9803; Q9967; U0003; U0005

== ENCOUNTER 2021-03-21 08:33 | Inpatient (IN) | payer OTHER, BC ==
[2021-03-21] MEDS ORDERED: SODIUM CHLORIDE 0.9% 500 ML INFUS.BAG IV ONE (08:57)
[2021-03-21] MEDS ORDERED: PIPERACILLIN/TAZOB 3.375 GM 3.375 GM in DEXTROSE 5%-WATER - 50 ML IVPB ONE (08:57)
[2021-03-21] MEDS ORDERED: VANCOMYCIN 1 GM in D5W (PRE-DOCKED) 1,000 MG/250 ML IVPB ONE (08:57)
[2021-03-21] MEDS ORDERED: PIPERACILLIN/TAZOB 4.5 GM 4.5 GM in DEXTROSE 5%-WATER - 100 ML IVPB ONE (09:19)
[2021-03-21 09:42] LABS: VENOUS BASE EXCESS 0.1 mmol/L (-2-2); VENOUS O2 SATURATION 32.5 % (70-80); VENOUS PCO2 48.9 mmHg (38-52); VENOUS PH 7.35 (7.310-7.410)
[2021-03-21] MEDS ORDERED: ACETAMINOPHEN 1000 MG/100 ML VIAL (NON FORMULARY) IVPB ONE (10:16)
[2021-03-21] MEDS ORDERED: ACETAMINOPHEN INJECTION 100 ML IVPB ONE (10:17)
[2021-03-21] MEDS ORDERED: VANCOMYCIN 1 GRAM (PRE-DOCKED) 1,000 MG/250 ML BAG IVPB ONE (10:18)
[2021-03-21] MEDS ORDERED: PIPERACILLIN/TAZOB 4.5 GM 4.5 GM/100 ML BAG IVPB ONE (10:18)
[2021-03-21 10:59] LABS: BASO % 0.1 % (0-2.0); EOS % 0.1 % (0-4.5); HEMATOCRIT 35.3 % (35.4-49); LYMPH % 9.1 % (8-40); MCH 33.1 pg (25.7-33.7); MEAN CELL VOLUME 97.4 fl (80-96); MEAN PLT VOLUME 7.5 fl (7.5-11.1); MONO % 5.8 % (3.8-10.2); NEUT % 84.9 % (42.8-82.8); PLATELET COUNT 275 K/MM3 (134-434); RBC 3.63 M/mm3 (4.00-5.60); RDW 16.5 % (11.9-15.9); WHITE BLOOD COUNT 10.8 K/mm3 (4.0-10.0)
[2021-03-21 11:03] LABS: EPI CELLS 8 /uL (0-25.1); HYALINE CASTS 0 /uL (0-3.1); PH,URINE 5.5 (5.0-8.0); URINE APPEARANCE CLEAR; URINE BACTERIA 54 /uL (0-1359); URINE BILIRUBIN NEGATIVE (NEGATIVE); URINE COLOR YELLOW; URINE GLUCOSE (UA) 3+ (NEGATIVE); URINE KETONE TRACE (NEGATIVE); URINE LEUK ESTERASE NEGATIVE (NEGATIVE); URINE NITRITE NEGATIVE (NEGATIVE); URINE PROTEIN NEGATIVE (NEGATIVE); URINE RBC 3 /uL (0-23.9); URINE UROBILINOGEN 0.2 mg/dL (0.2-1.0); URINE WBC 12 /uL (0-25.8)
[2021-03-21 11:06] LABS: INR 1.15 (0.83-1.09); PROTHROMBIN TIME (PATIENT) 13.8 SEC (9.7-13.0)
[2021-03-21 11:08] LABS: ACTIVATED PTT 30.9 SECONDS (25.2-36.5)
[2021-03-21 11:19] LABS: CALCIUM 8.4 mg/dL (8.5-10.1)
[2021-03-21 11:20] LABS: ALBUMIN 3.4 g/dl (3.4-5.0); BLOOD UREA NITROGEN 11.4 mg/dL (7-18)
[2021-03-21 11:23] LABS: CREATININE 1.1 mg/dL (0.55-1.3)
[2021-03-21 11:24] LABS: BILIRUBIN,TOTAL 0.8 mg/dL (0.2-1); TOT PROT 7.9 g/dl (6.4-8.2)
[2021-03-21 11:27] LABS: LACTIC ACID 4.8 mmol/L (0.4-2.0)
[2021-03-21] MEDS ORDERED: AZITHROMYCIN IVPB 500 MG in DEXTROSE 5%-WATER - 250 ML IVPB ONE (12:19)
[2021-03-21] MEDS ORDERED: ALBUTEROL SO4 2.5/IPRATROPIUM 0.5 INH SOL 3 ML VIAL.NEB. NEB PRN (13:42)
[2021-03-21] MEDS ORDERED: PIPERACILLIN/TAZOB 2.25 GM 2.25 GM in DEXTROSE 5%-WATER - 50 ML IVPB SCH ×2 (14:30→18:00)
[2021-03-21] MEDS: D5-1/2NS+20 MEQ KCL - 20 MEQ/1,000 ML INFUS.BAG IV SCH (16:10)
[2021-03-21] MEDS ORDERED: HEPARIN NA (PORCINE) 5,000 UNITS/ML 1ML VIAL ONE (17:41)
[2021-03-21] MEDS ORDERED: CEFTRIAXONE 2 GM/100 ML BAG IVPB ONE (17:41)
[2021-03-21] MEDS: CEFTRIAXONE 2 GM in DEXTROSE 5%-WATER 2 GM/100 ML BAG IVPB SCH (17:50)
[2021-03-21] MEDS: HEPARIN NA (PORCINE) 5,000 UNITS/ML 1ML VIAL SQ SCH ×3 (18:10→21:03)
[2021-03-21] MEDS: DOCUSATE SODIUM 100 MG CAPSULE (FP) PO SCH (21:02)
[2021-03-21] MEDS: ACETAMINOPHEN 325 MG TABLET (FP) PO PRN (21:03)
[2021-03-21] MEDS: ATORVASTATIN CA 20 MG TABLET (FP) PO SCH (21:03)
[2021-03-22] MEDS: D5-1/2NS+20 MEQ KCL - 20 MEQ/1,000 ML INFUS.BAG IV SCH ×2 (06:00→14:30)
[2021-03-22] MEDS: HEPARIN NA (PORCINE) 5,000 UNITS/ML 1ML VIAL SQ SCH ×3 (06:00→21:21)
[2021-03-22] MEDS: INSULIN SLIDING SCALE (NOVOLOG) 1 VIAL SQ SCH ×4 (06:06→21:22)
[2021-03-22] MEDS: ACETAMINOPHEN 325 MG TABLET (FP) PO PRN ×2 (06:41→21:21)
[2021-03-22 08:36] LABS: BASO % 0.3 % (0-2.0); EOS % 1.6 % (0-4.5); HEMATOCRIT 32.3 % (35.4-49); LYMPH % 10.5 % (8-40); MCH 32.9 pg (25.7-33.7); MCHC 34.1 g/dl (32.0-35.9); MEAN CELL VOLUME 96.6 fl (80-96); MEAN PLT VOLUME 7.9 fl (7.5-11.1); NEUT % 81.6 % (42.8-82.8); PLATELET COUNT 236 K/MM3 (134-434); RBC 3.35 M/mm3 (4.00-5.60); RDW 16.4 % (11.9-15.9); WHITE BLOOD COUNT 10.1 K/mm3 (4.0-10.0)
[2021-03-22 08:53] LABS: CALCIUM 8.4 mg/dL (8.5-10.1)
[2021-03-22 08:54] LABS: BLOOD UREA NITROGEN 6.1 mg/dL (7-18); MAGNESIUM 1.6 mg/dL (1.8-2.4)
[2021-03-22 08:57] LABS: CREATININE 0.6 mg/dL (0.55-1.3)
[2021-03-22 08:58] LABS: BILIRUBIN,TOTAL 1.4 mg/dL (0.2-1)
[2021-03-22 08:59] LABS: TOT PROT 6.8 g/dl (6.4-8.2)
[2021-03-22] MEDS ORDERED: DEXTROSE 5%-WATER 100 ML IVPB ONE (09:29)
[2021-03-22] MEDS: CEFTRIAXONE 2 GM in DEXTROSE 5%-WATER 2 GM/100 ML BAG IVPB SCH (09:32)
[2021-03-22] MEDS: amLODIPine BESYLATE 5 MG TABLET (FP) PO SCH (09:32)
[2021-03-22] MEDS: PANTOPRAZOLE 40 MG TABLET PO SCH (09:32)
[2021-03-22] MEDS: LOSARTAN POTASSIUM 50 MG TABLET PO SCH (09:32)
[2021-03-22] MEDS: ASPIRIN COATED 81 MG TABLET.EC PO SCH (09:32)
[2021-03-22] MEDS: AZITHROMYCIN IVPB 500 MG/250 ML BAG IVPB SCH (09:33)
[2021-03-22] MEDS ORDERED: ACETAMINOPHEN 325 MG TABLET (FP) PO PRN (14:17)
[2021-03-22] MEDS ORDERED: POTASSIUM CHLORIDE ORAL LIQUID 20 MEQ/15 ML PO ONE (14:28)
[2021-03-22] MEDS ORDERED: MAGNESIUM SULF 50% (8.12 MEQ/2 ML-1 GM VIAL) IVPB ONE (15:39)
[2021-03-22 17:33] LABS: LACTIC ACID 3.7 mmol/L (0.4-2.0)
[2021-03-22 20:09] LABS: CALCIUM 8.4 mg/dL (8.5-10.1)
[2021-03-22 20:10] LABS: ALBUMIN 2.8 g/dl (3.4-5.0); BLOOD UREA NITROGEN 6.3 mg/dL (7-18)
[2021-03-22 20:13] LABS: CREATININE 0.8 mg/dL (0.55-1.3)
[2021-03-22 20:14] LABS: BILIRUBIN,TOTAL 1.4 mg/dL (0.2-1); TOT PROT 7.3 g/dl (6.4-8.2)
[2021-03-22] MEDS ORDERED: DEXTROSE 5%-0.45% SALINE 1,000 ML IV SCH (20:30)
[2021-03-22] MEDS: DOCUSATE SODIUM 100 MG CAPSULE (FP) PO SCH (21:20)
[2021-03-22] MEDS: ATORVASTATIN CA 20 MG TABLET (FP) PO SCH (21:20)
[2021-03-23] MEDS ORDERED: MELATONIN 5 MG TABLETS PO ONE (03:38)
[2021-03-23] MEDS: HEPARIN NA (PORCINE) 5,000 UNITS/ML 1ML VIAL SQ SCH ×3 (06:06→21:18)
[2021-03-23] MEDS: INSULIN SLIDING SCALE (NOVOLOG) 1 VIAL SQ SCH ×4 (06:06→21:24)
[2021-03-23] MEDS ORDERED: DEXTROSE 5%-WATER 100 ML IVPB ONE (09:19)
[2021-03-23] MEDS: CEFTRIAXONE 2 GM in DEXTROSE 5%-WATER 2 GM/100 ML BAG IVPB SCH (09:24)
[2021-03-23] MEDS: AZITHROMYCIN IVPB 500 MG/250 ML BAG IVPB SCH (09:26)
[2021-03-23] MEDS: PANTOPRAZOLE 40 MG TABLET PO SCH (09:28)
[2021-03-23] MEDS: amLODIPine BESYLATE 5 MG TABLET (FP) PO SCH (09:28)
[2021-03-23] MEDS: LOSARTAN POTASSIUM 50 MG TABLET PO SCH (09:28)
[2021-03-23] MEDS: ASPIRIN COATED 81 MG TABLET.EC PO SCH (09:28)
[2021-03-23] MEDS ORDERED: INSULIN (NOVOLOG) ASPART 100 UNITS/ML 10ML VIAL ONE (11:24)
[2021-03-23 12:42] LABS: HEMOGLOBIN 10.9 GM/dL (11.7-16.9); MCH 32.8 pg (25.7-33.7); MCHC 34.2 g/dl (32.0-35.9); MEAN PLT VOLUME 7.9 fl (7.5-11.1); PLATELET COUNT 228 K/MM3 (134-434); RBC 3.33 M/mm3 (4.00-5.60); RDW 16.1 % (11.9-15.9); WHITE BLOOD COUNT 7.8 K/mm3 (4.0-10.0)
[2021-03-23 13:02] LABS: CALCIUM 8.3 mg/dL (8.5-10.1)
[2021-03-23 13:03] LABS: BLOOD UREA NITROGEN 7.7 mg/dL (7-18)
[2021-03-23 13:06] LABS: CREATININE 0.7 mg/dL (0.55-1.3)
[2021-03-23 13:08] LABS: BILIRUBIN,TOTAL 0.9 mg/dL (0.2-1); TOT PROT 7.3 g/dl (6.4-8.2)
[2021-03-23] MEDS: COLLAGENASE CLOSTRIDIUM HIST. 30 GRAMS TUBE TP SCH (15:20)
[2021-03-23] MEDS: ACETAMINOPHEN 325 MG TABLET (FP) PO PRN ×2 (15:29→19:48)
[2021-03-23] MEDS: DOCUSATE SODIUM 100 MG CAPSULE (FP) PO SCH (21:18)
[2021-03-23] MEDS: ATORVASTATIN CA 20 MG TABLET (FP) PO SCH (21:18)
[2021-03-24] MEDS: HEPARIN NA (PORCINE) 5,000 UNITS/ML 1ML VIAL SQ SCH ×3 (06:04→21:28)
[2021-03-24] MEDS: INSULIN SLIDING SCALE (NOVOLOG) 1 VIAL SQ SCH ×4 (06:06→21:28)
[2021-03-24] MEDS ORDERED: DEXTROSE 5%-WATER 100 ML IVPB ONE (08:25)
[2021-03-24] MEDS: AZITHROMYCIN IVPB 500 MG/250 ML BAG IVPB SCH (09:40)
[2021-03-24] MEDS: CEFTRIAXONE 2 GM in DEXTROSE 5%-WATER 2 GM/100 ML BAG IVPB SCH (09:41)
[2021-03-24] MEDS: PANTOPRAZOLE 40 MG TABLET PO SCH (09:42)
[2021-03-24] MEDS: LOSARTAN POTASSIUM 50 MG TABLET PO SCH (09:42)
[2021-03-24] MEDS: amLODIPine BESYLATE 5 MG TABLET (FP) PO SCH (09:42)
[2021-03-24] MEDS: ASPIRIN COATED 81 MG TABLET.EC PO SCH (09:42)
[2021-03-24] MEDS: COLLAGENASE CLOSTRIDIUM HIST. 30 GRAMS TUBE TP SCH (09:44)
[2021-03-24 12:18] LABS: HEMATOCRIT 34.6 % (35.4-49); HEMOGLOBIN 11.7 GM/dL (11.7-16.9); MCH 32.8 pg (25.7-33.7); MCHC 33.8 g/dl (32.0-35.9); MEAN CELL VOLUME 97.1 fl (80-96); MEAN PLT VOLUME 8.1 fl (7.5-11.1); PLATELET COUNT 245 K/MM3 (134-434); RBC 3.57 M/mm3 (4.00-5.60); WHITE BLOOD COUNT 5.8 K/mm3 (4.0-10.0)
[2021-03-24 12:36] LABS: ALBUMIN 3.1 g/dl (3.4-5.0); CALCIUM 8.6 mg/dL (8.5-10.1)
[2021-03-24 12:37] LABS: BLOOD UREA NITROGEN 13.6 mg/dL (7-18)
[2021-03-24 12:40] LABS: CREATININE 0.7 mg/dL (0.55-1.3)
[2021-03-24 12:41] LABS: BILIRUBIN,TOTAL 0.8 mg/dL (0.2-1); TOT PROT 7.6 g/dl (6.4-8.2)
[2021-03-24] MEDS: ACETAMINOPHEN 325 MG TABLET (FP) PO PRN ×2 (12:42→18:44)
[2021-03-24] MEDS: DOCUSATE SODIUM 100 MG CAPSULE (FP) PO SCH (21:28)
[2021-03-24] MEDS: ATORVASTATIN CA 20 MG TABLET (FP) PO SCH (21:28)
[2021-03-25] MEDS: INSULIN SLIDING SCALE (NOVOLOG) 1 VIAL SQ SCH ×4 (06:07→21:32)
[2021-03-25] MEDS: HEPARIN NA (PORCINE) 5,000 UNITS/ML 1ML VIAL SQ SCH ×3 (06:07→21:20)
[2021-03-25] MEDS ORDERED: DEXTROSE 5%-WATER 100 ML IVPB ONE (11:00)
[2021-03-25] MEDS: ASPIRIN COATED 81 MG TABLET.EC PO SCH (11:02)
[2021-03-25] MEDS: amLODIPine BESYLATE 5 MG TABLET (FP) PO SCH (11:02)
[2021-03-25] MEDS: PANTOPRAZOLE 40 MG TABLET PO SCH (11:02)
[2021-03-25] MEDS: LOSARTAN POTASSIUM 50 MG TABLET PO SCH (11:02)
[2021-03-25] MEDS: CEFTRIAXONE 2 GM in DEXTROSE 5%-WATER 2 GM/100 ML BAG IVPB SCH (11:03)
[2021-03-25] MEDS: AZITHROMYCIN IVPB 500 MG/250 ML BAG IVPB SCH (11:52)
[2021-03-25 13:33] VITALS: BMI 27.4
[2021-03-25] MEDS: ACETAMINOPHEN 325 MG TABLET (FP) PO PRN ×2 (15:04→19:30)
[2021-03-25] MEDS: CEFUROXIME AXETIL 500 MG TABLET PO SCH (17:29)
[2021-03-25] MEDS: COLLAGENASE CLOSTRIDIUM HIST. 30 GRAMS TUBE TP SCH (17:29)
[2021-03-25] MEDS ORDERED: MELATONIN 5 MG TABLETS PO ONE (20:20)
[2021-03-25] MEDS ORDERED: INSULIN (NOVOLOG) ASPART 100 UNITS/ML 10ML VIAL ONE (21:17)
[2021-03-25] MEDS: DOCUSATE SODIUM 100 MG CAPSULE (FP) PO SCH (21:21)
[2021-03-25] MEDS: ATORVASTATIN CA 20 MG TABLET (FP) PO SCH (21:21)
[2021-03-26] MEDS: HEPARIN NA (PORCINE) 5,000 UNITS/ML 1ML VIAL SQ SCH (06:29)
[2021-03-26] MEDS: INSULIN SLIDING SCALE (NOVOLOG) 1 VIAL SQ SCH ×2 (06:29→11:05)
[2021-03-26 07:48] LABS: HEMATOCRIT 33.3 % (35.4-49); HEMOGLOBIN 11.4 GM/dL (11.7-16.9); MCH 32.9 pg (25.7-33.7); MCHC 34.1 g/dl (32.0-35.9); MEAN CELL VOLUME 96.5 fl (80-96); MEAN PLT VOLUME 7.8 fl (7.5-11.1); PLATELET COUNT 284 K/MM3 (134-434); RBC 3.45 M/mm3 (4.00-5.60); RDW 16.2 % (11.9-15.9); WHITE BLOOD COUNT 6.4 K/mm3 (4.0-10.0)
[2021-03-26] MEDS ORDERED: AMINO ACIDS/PROTEIN HYDROLYS 30 ML LIQUID.PKT PO SCH (08:00)
[2021-03-26 08:07] LABS: CALCIUM 8.7 mg/dL (8.5-10.1)
[2021-03-26 08:08] LABS: BLOOD UREA NITROGEN 14.3 mg/dL (7-18)
[2021-03-26 08:11] LABS: CREATININE 0.6 mg/dL (0.55-1.3)
[2021-03-26] MEDS: CEFUROXIME AXETIL 500 MG TABLET PO SCH (09:24)
[2021-03-26] MEDS ORDERED: MULTIVITAMINS (DAILY MVI) TABLET (FP) PO SCH (10:00)
[2021-03-26] MEDS: PANTOPRAZOLE 40 MG TABLET PO SCH (11:03)
[2021-03-26] MEDS: COLLAGENASE CLOSTRIDIUM HIST. 30 GRAMS TUBE TP SCH (11:03)
[2021-03-26] MEDS: amLODIPine BESYLATE 5 MG TABLET (FP) PO SCH (11:03)
[2021-03-26] MEDS: ASPIRIN COATED 81 MG TABLET.EC PO SCH (11:03)
[2021-03-26] MEDS: LOSARTAN POTASSIUM 50 MG TABLET PO SCH (11:03)
[2021-03-26] MEDS: ACETAMINOPHEN 325 MG TABLET (FP) PO PRN (11:04)
[2021-03-26 11:23] VITALS: BP 142/97; PULSE 111
[2021-03-26 11:32] VITALS: TEMP 99.6
== END 2021-03-26 13:42 | disposition home health service (06) | DRG 871 ==
LOC: JER 08:33 → JERBED 08:53 → J7W 18:17
PROVIDERS: ADMIT Family Medicine; ATTEND Family Medicine
DX: A41.9 Sepsis, unspecified organism (principal); L89.613 Pressure ulcer of right heel, stage 3; J18.9 Pneumonia, unspecified organism; G93.41 Metabolic encephalopathy; G92 Toxic encephalopathy; E87.2 Acidosis; E78.5 Hyperlipidemia, unspecified; I10 Essential (primary) hypertension; E87.6 Hypokalemia; L89.622 Pressure ulcer of left heel, stage 2; K21.9 Gastro-esophageal reflux disease without esophagitis; E11.65 Type 2 diabetes mellitus with hyperglycemia
CPT/HCPCS: 36415; 71045-TC-FY; 80048; 80053; 81003; 82010; 82550; 82553; 82803; 82962; 83605; 83735; 84443; 84484; 85025; 85027; 85610; 85730; 87040; 87086; 87804; 87899; 93005; 93010; 97116-GP; 97161-GP; 99291; C9803; J0131; J1644; U0003; U0005

== ENCOUNTER 2021-06-15 11:52 | Inpatient (IN) | payer OTHER, BC ==
[2021-06-15 12:13] VITALS: BMI 25.0
[2021-06-15] MEDS ORDERED: PIPERACILLIN/TAZOB 3.375 GM 3.375 GM in DEXTROSE 5%-WATER - 50 ML IVPB ONE (13:47)
[2021-06-15] MEDS ORDERED: VANCOMYCIN 1 GM in D5W (PRE-DOCKED) 1,000 MG/250 ML IVPB ONE (13:47)
[2021-06-15] MEDS ORDERED: SODIUM CHLORIDE 0.9% 500 ML INFUS.BAG IV ONE (13:48)
[2021-06-15 14:37] LABS: CHLORIDE 101 mmol/L (98-107); SODIUM 137 mmol/L (136-145)
[2021-06-15 14:39] LABS: ALBUMIN 3.8 g/dl (3.4-5.0); ANION GAP 8 MMOL/L (8-16); BLOOD UREA NITROGEN 11.2 mg/dL (7-18); CALCIUM 8.5 mg/dL (8.5-10.1); CO2 27 mmol/L (21-32); GLUCOSE,RANDOM 109 mg/dL (74-106)
[2021-06-15] MEDS ORDERED: ACETAMINOPHEN INJECTION 100 ML IVPB ONE (14:39)
[2021-06-15 14:42] LABS: SGOT/AST 34 U/L (15-37); SGPT/ALT 21 U/L (13-61)
[2021-06-15 14:44] LABS: BILIRUBIN,TOTAL 0.9 mg/dL (0.2-1); TOT PROT 7.9 g/dl (6.4-8.2)
[2021-06-15 14:45] LABS: ALK PHOS 122 U/L (45-117)
[2021-06-15] MEDS ORDERED: VANCOMYCIN 1 GRAM (PRE-DOCKED) 1,000 MG/250 ML BAG IVPB ONE (14:48)
[2021-06-15] MEDS ORDERED: PIPERACILLIN/TAZOB 3.375 GM 3.375 GM/50 ML BAG IVPB ONE (14:48)
[2021-06-15 14:49] LABS: URINE APPEARANCE CLEAR; URINE BILIRUBIN NEGATIVE (NEGATIVE); URINE COLOR YELLOW; URINE GLUCOSE (UA) 3+ (NEGATIVE); URINE KETONE NEGATIVE (NEGATIVE); URINE LEUK ESTERASE NEGATIVE (NEGATIVE); URINE NITRITE NEGATIVE (NEGATIVE); URINE PROTEIN NEGATIVE (NEGATIVE); URINE UROBILINOGEN 0.2 mg/dL (0.2-1.0)
[2021-06-15 15:08] LABS: BASO % 0.4 % (0-2.0); EOS % 2.8 % (0-4.5); HEMATOCRIT 38.9 % (35.4-49); HEMOGLOBIN 13.2 GM/dL (11.7-16.9); LYMPH % 15.7 % (8-40); MCH 32.2 pg (25.7-33.7); MCHC 34.1 g/dl (32.0-35.9); MEAN CELL VOLUME 94.6 fl (80-96); MEAN PLT VOLUME 7.7 fl (7.5-11.1); MONO % 3.4 % (3.8-10.2); NEUT % 77.7 % (42.8-82.8); PLATELET COUNT 249 10^3/uL (134-434); RBC 4.11 M/mm3 (4.00-5.60); RDW 16.9 % (11.9-15.9); WHITE BLOOD COUNT 7.7 K/mm3 (4.0-10.0)
[2021-06-15 15:15] LABS: INR 1.04 (0.83-1.09); PROTHROMBIN TIME (PATIENT) 12.8 SEC (9.7-13.0)
[2021-06-15 15:18] LABS: ACTIVATED PTT 30.6 SECONDS (25.2-36.5)
[2021-06-16] MEDS ORDERED: ACETAMINOPHEN 1000 MG/100 ML VIAL (NON FORMULARY) IVPB PRN (06:21)
[2021-06-16] MEDS ORDERED: PANTOPRAZOLE 20 MG TABLET PO ONE (08:38)
[2021-06-16] MEDS ORDERED: amLODIPine BESYLATE 5 MG TABLET (FP) ONE (08:38)
[2021-06-16] MEDS ORDERED: ASPIRIN COATED 81 MG TABLET.EC ONE (08:38)
[2021-06-16] MEDS ORDERED: LOSARTAN POTASSIUM 50 MG TABLET ONE (08:39)
[2021-06-16] MEDS ORDERED: PIPERACILLIN/TAZOB 3.375 GM 3.375 GM/50 ML BAG IVPB ONE ×2 (08:39→18:15)
[2021-06-16] MEDS: LOSARTAN POTASSIUM 50 MG TABLET PO SCH (09:19)
[2021-06-16] MEDS: amLODIPine BESYLATE 5 MG TABLET (FP) PO SCH (09:19)
[2021-06-16] MEDS: ASPIRIN COATED 81 MG TABLET.EC PO SCH (09:19)
[2021-06-16] MEDS: PANTOPRAZOLE 40 MG TABLET PO SCH (09:19)
[2021-06-16] MEDS ORDERED: VANCOMYCIN 1,000 MG in DEXTROSE 5%-WATER - 250 ML IVPB SCH (10:00)
[2021-06-16] MEDS ORDERED: VANCOMYCIN 1 GRAM (PRE-DOCKED) 1,000 MG/250 ML BAG IVPB SCH (10:00)
[2021-06-16] MEDS ORDERED: PIPERACILLIN/TAZOB 3.375 GM 3.375 GM in DEXTROSE 5%-WATER - 50 ML IVPB SCH (10:00)
[2021-06-16 10:24] LABS: BASO % 0.6 % (0-2.0); EOS % 1.3 % (0-4.5); HEMATOCRIT 35.9 % (35.4-49); LYMPH % 15.2 % (8-40); MCH 31.9 pg (25.7-33.7); MCHC 33.5 g/dl (32.0-35.9); MEAN CELL VOLUME 95.3 fl (80-96); MEAN PLT VOLUME 7.7 fl (7.5-11.1); NEUT % 78.9 % (42.8-82.8); PLATELET COUNT 205 10^3/uL (134-434); RBC 3.77 M/mm3 (4.00-5.60); RDW 16.7 % (11.9-15.9); WHITE BLOOD COUNT 6.4 K/mm3 (4.0-10.0)
[2021-06-16] MEDS ORDERED: VANCOMYCIN 1 GRAM (PRE-DOCKED) 1,000 MG/250 ML BAG IVPB ONE (11:20)
[2021-06-16 11:32] LABS: CALCIUM 8.4 mg/dL (8.5-10.1)
[2021-06-16 11:33] LABS: ALBUMIN 3.5 g/dl (3.4-5.0); BLOOD UREA NITROGEN 11.6 mg/dL (7-18)
[2021-06-16 11:36] LABS: CREATININE 0.8 mg/dL (0.55-1.3)
[2021-06-16 11:38] LABS: BILIRUBIN,TOTAL 1.2 mg/dL (0.2-1); TOT PROT 7.5 g/dl (6.4-8.2)
[2021-06-16] MEDS ORDERED: ACETAMINOPHEN INJECTION 100 ML IVPB ONE (13:04)
[2021-06-16] MEDS: DOCUSATE SODIUM 100 MG CAPSULE (FP) PO SCH (21:47)
[2021-06-16] MEDS: ATORVASTATIN CA 20 MG TABLET (FP) PO SCH (21:47)
[2021-06-17] MEDS ORDERED: PIPERACILLIN/TAZOBACTAM 3.375 GM VIAL IVPB ONE ×3 (01:27→17:20)
[2021-06-17] MEDS ORDERED: DEXTROSE 5%-WATER - 50 ML IVPB ONE ×3 (01:27→17:21)
[2021-06-17] MEDS: PIPERACILLIN/TAZOB 3.375 GM 3.375 GM in DEXTROSE 5%-WATER - 50 ML IVPB SCH ×4 (01:33→19:33)
[2021-06-17 08:02] LABS: BASO % 0.3 % (0-2.0); EOS % 3.2 % (0-4.5); HEMATOCRIT 34.6 % (35.4-49); HEMOGLOBIN 11.6 GM/dL (11.7-16.9); LYMPH % 22.7 % (8-40); MCH 31.9 pg (25.7-33.7); MCHC 33.6 g/dl (32.0-35.9); MEAN PLT VOLUME 8.1 fl (7.5-11.1); MONO % 7.4 % (3.8-10.2); NEUT % 66.4 % (42.8-82.8); PLATELET COUNT 215 10^3/uL (134-434); RBC 3.64 M/mm3 (4.00-5.60); WHITE BLOOD COUNT 5.3 K/mm3 (4.0-10.0)
[2021-06-17 08:16] LABS: BLOOD UREA NITROGEN 13.4 mg/dL (7-18); CALCIUM 8.3 mg/dL (8.5-10.1)
[2021-06-17 08:19] LABS: CREATININE 0.7 mg/dL (0.55-1.3)
[2021-06-17] MEDS: amLODIPine BESYLATE 5 MG TABLET (FP) PO SCH (09:47)
[2021-06-17] MEDS: LOSARTAN POTASSIUM 50 MG TABLET PO SCH (09:47)
[2021-06-17] MEDS: ASPIRIN COATED 81 MG TABLET.EC PO SCH (09:48)
[2021-06-17] MEDS: PANTOPRAZOLE 40 MG TABLET PO SCH (09:48)
[2021-06-17] MEDS ORDERED: PANTOPRAZOLE 20 MG TABLET PO SCH (09:56)
[2021-06-17] MEDS: PANTOPRAZOLE 20 MG TABLET PO SCH (10:01)
[2021-06-17] MEDS ORDERED: POTASSIUM CHLORIDE TABS 20 MEQ TABLET.ER (FP) PO ONE ×2 (10:30→15:45)
[2021-06-17] MEDS: ACETAMINOPHEN 1000 MG/100 ML VIAL (NON FORMULARY) IVPB PRN (18:23)
[2021-06-17] MEDS: COLLAGENASE CLOSTRIDIUM HIST. 30 GRAMS TUBE TP SCH (18:25)
[2021-06-17] MEDS: DOCUSATE SODIUM 100 MG CAPSULE (FP) PO SCH (21:17)
[2021-06-17] MEDS: ATORVASTATIN CA 20 MG TABLET (FP) PO SCH (21:17)
[2021-06-18] MEDS ORDERED: DEXTROSE 5%-WATER - 50 ML IVPB ONE ×4 (02:32→17:12)
[2021-06-18] MEDS ORDERED: PIPERACILLIN/TAZOBACTAM 3.375 GM VIAL IVPB ONE ×4 (02:32→17:12)
[2021-06-18] MEDS: PIPERACILLIN/TAZOB 3.375 GM 3.375 GM in DEXTROSE 5%-WATER - 50 ML IVPB SCH ×3 (02:43→18:19)
[2021-06-18 08:27] LABS: CALCIUM 8.6 mg/dL (8.5-10.1)
[2021-06-18 08:28] LABS: ALBUMIN 3.5 g/dl (3.4-5.0); MAGNESIUM 2.1 mg/dL (1.8-2.4)
[2021-06-18 08:31] LABS: CREATININE 0.7 mg/dL (0.55-1.3)
[2021-06-18 08:32] LABS: BILIRUBIN,TOTAL 0.9 mg/dL (0.2-1); TOT PROT 7.5 g/dl (6.4-8.2)
[2021-06-18] MEDS: ASPIRIN COATED 81 MG TABLET.EC PO SCH (10:04)
[2021-06-18] MEDS: LOSARTAN POTASSIUM 50 MG TABLET PO SCH (10:04)
[2021-06-18] MEDS: PANTOPRAZOLE 20 MG TABLET PO SCH (10:04)
[2021-06-18] MEDS: amLODIPine BESYLATE 5 MG TABLET (FP) PO SCH (10:05)
[2021-06-18 14:42] LABS: BASO % 0.7 % (0-2.0); EOS % 2.1 % (0-4.5); HEMATOCRIT 36.1 % (35.4-49); HEMOGLOBIN 12.1 GM/dL (11.7-16.9); LYMPH % 28.8 % (8-40); MCH 31.6 pg (25.7-33.7); MCHC 33.5 g/dl (32.0-35.9); MEAN CELL VOLUME 94.2 fl (80-96); MEAN PLT VOLUME 7.6 fl (7.5-11.1); MONO % 7.8 % (3.8-10.2); NEUT % 60.6 % (42.8-82.8); PLATELET COUNT 240 10^3/uL (134-434); RBC 3.83 M/mm3 (4.00-5.60); WHITE BLOOD COUNT 5.2 K/mm3 (4.0-10.0)
[2021-06-18] MEDS: ACETAMINOPHEN 1000 MG/100 ML VIAL (NON FORMULARY) IVPB PRN ×2 (15:42→23:16)
[2021-06-18] MEDS: SODIUM CHLORIDE 0.45%/POT 20 MEQ/1,000 ML INFUS.BAG IV SCH (15:48)
[2021-06-18] MEDS: COLLAGENASE CLOSTRIDIUM HIST. 30 GRAMS TUBE TP SCH (18:20)
[2021-06-18] MEDS: DOCUSATE SODIUM 100 MG CAPSULE (FP) PO SCH (21:11)
[2021-06-18] MEDS: ATORVASTATIN CA 20 MG TABLET (FP) PO SCH (21:11)
[2021-06-19] MEDS ORDERED: PIPERACILLIN/TAZOBACTAM 3.375 GM VIAL IVPB ONE ×3 (01:00→16:10)
[2021-06-19] MEDS ORDERED: DEXTROSE 5%-WATER - 50 ML IVPB ONE ×3 (01:00→16:10)
[2021-06-19] MEDS: PIPERACILLIN/TAZOB 3.375 GM 3.375 GM in DEXTROSE 5%-WATER - 50 ML IVPB SCH ×3 (01:04→17:04)
[2021-06-19] MEDS: SODIUM CHLORIDE 0.45%/POT 20 MEQ/1,000 ML INFUS.BAG IV SCH ×2 (05:54→16:47)
[2021-06-19 08:40] LABS: EOS % 2.7 % (0-4.5); HEMATOCRIT 37.3 % (35.4-49); HEMOGLOBIN 12.6 GM/dL (11.7-16.9); LYMPH % 30.7 % (8-40); MCH 31.7 pg (25.7-33.7); MCHC 33.7 g/dl (32.0-35.9); MEAN PLT VOLUME 7.2 fl (7.5-11.1); MONO % 9.8 % (3.8-10.2); NEUT % 55.8 % (42.8-82.8); PLATELET COUNT 239 10^3/uL (134-434); RBC 3.97 M/mm3 (4.00-5.60); RDW 16.8 % (11.9-15.9)
[2021-06-19] MEDS: LOSARTAN POTASSIUM 50 MG TABLET PO SCH (09:30)
[2021-06-19] MEDS: PANTOPRAZOLE 20 MG TABLET PO SCH (09:30)
[2021-06-19] MEDS: amLODIPine BESYLATE 5 MG TABLET (FP) PO SCH (09:30)
[2021-06-19] MEDS: ASPIRIN COATED 81 MG TABLET.EC PO SCH (09:30)
[2021-06-19] MEDS: COLLAGENASE CLOSTRIDIUM HIST. 30 GRAMS TUBE TP SCH (09:31)
[2021-06-19] MEDS: ACETAMINOPHEN 325 MG TABLET (FP) PO PRN (18:35)
[2021-06-19] MEDS: DOCUSATE SODIUM 100 MG CAPSULE (FP) PO SCH (21:07)
[2021-06-19] MEDS: ATORVASTATIN CA 20 MG TABLET (FP) PO SCH (21:07)
[2021-06-20] MEDS ORDERED: PIPERACILLIN/TAZOBACTAM 3.375 GM VIAL IVPB ONE ×4 (00:07→23:53)
[2021-06-20] MEDS ORDERED: DEXTROSE 5%-WATER - 50 ML IVPB ONE ×4 (00:08→23:53)
[2021-06-20] MEDS: PIPERACILLIN/TAZOB 3.375 GM 3.375 GM in DEXTROSE 5%-WATER - 50 ML IVPB SCH ×3 (01:06→17:43)
[2021-06-20] MEDS: SODIUM CHLORIDE 0.45%/POT 20 MEQ/1,000 ML INFUS.BAG IV SCH ×3 (05:39→17:43)
[2021-06-20] MEDS: PANTOPRAZOLE 20 MG TABLET PO SCH (10:35)
[2021-06-20] MEDS: LOSARTAN POTASSIUM 50 MG TABLET PO SCH (10:35)
[2021-06-20] MEDS: ASPIRIN COATED 81 MG TABLET.EC PO SCH (10:35)
[2021-06-20] MEDS: COLLAGENASE CLOSTRIDIUM HIST. 30 GRAMS TUBE TP SCH (10:35)
[2021-06-20] MEDS: amLODIPine BESYLATE 5 MG TABLET (FP) PO SCH (10:35)
[2021-06-20] MEDS: metoPROLOL SUCCINATE 25 MG TAB.SR.24H (FP) PO SCH (13:19)
[2021-06-20] MEDS: DOCUSATE SODIUM 100 MG CAPSULE (FP) PO SCH (21:21)
[2021-06-20] MEDS: ATORVASTATIN CA 20 MG TABLET (FP) PO SCH (21:21)
[2021-06-20] MEDS: ACETAMINOPHEN 325 MG TABLET (FP) PO PRN (21:52)
[2021-06-21] MEDS: PIPERACILLIN/TAZOB 3.375 GM 3.375 GM in DEXTROSE 5%-WATER - 50 ML IVPB SCH (01:09)
[2021-06-21] MEDS: SODIUM CHLORIDE 0.45%/POT 20 MEQ/1,000 ML INFUS.BAG IV SCH (05:23)
[2021-06-21] MEDS: metoPROLOL SUCCINATE 25 MG TAB.SR.24H (FP) PO SCH (09:39)
[2021-06-21] MEDS: ASPIRIN COATED 81 MG TABLET.EC PO SCH (09:39)
[2021-06-21] MEDS: amLODIPine BESYLATE 5 MG TABLET (FP) PO SCH (09:39)
[2021-06-21] MEDS: LOSARTAN POTASSIUM 50 MG TABLET PO SCH (09:39)
[2021-06-21] MEDS: PANTOPRAZOLE 20 MG TABLET PO SCH (09:39)
[2021-06-21] MEDS: COLLAGENASE CLOSTRIDIUM HIST. 30 GRAMS TUBE TP SCH (09:39)
[2021-06-21 22:36] VITALS: BP 124/83; PULSE 99; TEMP 98.4
== END 2021-06-21 21:45 | DRG 194 ==
LOC: JER 11:52 → JERBED 22:18 → J7W 06-16 20:49
PROVIDERS: ADMIT Internal Medicine; ATTEND Family Medicine
DX: J18.9 Pneumonia, unspecified organism (principal); L97.429 Non-pressure chronic ulcer of left heel and midfoot with unspecified severity; L97.419 Non-pressure chronic ulcer of right heel and midfoot with unspecified severity; M21.371 Foot drop, right foot; R00.0 Tachycardia, unspecified; E11.51 Type 2 diabetes mellitus with diabetic peripheral angiopathy without gangrene; I10 Essential (primary) hypertension; E78.5 Hyperlipidemia, unspecified; K21.9 Gastro-esophageal reflux disease without esophagitis; W19.XXXA Unspecified fall, initial encounter
CPT/HCPCS: 36415; 70450-TC; 71045-TC-FY; 71250-TC; 72125-TC; 74177-TC; 80048; 80053; 81003; 82728; 82962; 83605; 83615; 83735; 84484; 85025; 85610; 85730; 87040; 87086; 87804; 87899; 93005; 93010; 93306-TC; 97116-GP; 97161-GP; 99285-25; C9803; J0131; J3480; Q9967; U0003; U0005

== ENCOUNTER 2021-07-24 13:34 | Inpatient (IN) | payer OTHER, BC ==
[2021-07-24 16:37] LABS: BASO % 0.6 % (0-2.0); EOS % 4.2 % (0-4.5); HEMATOCRIT 37.4 % (35.4-49); HEMOGLOBIN 12.6 GM/dL (11.7-16.9); LYMPH % 32.3 % (8-40); MCH 32.4 pg (25.7-33.7); MCHC 33.7 g/dl (32.0-35.9); MEAN CELL VOLUME 96.3 fl (80-96); MEAN PLT VOLUME 8.2 fl (7.5-11.1); MONO % 4.6 % (3.8-10.2); NEUT % 58.3 % (42.8-82.8); PLATELET COUNT 208 10^3/uL (134-434); RBC 3.88 M/mm3 (4.00-5.60); RDW 16.3 % (11.9-15.9); WHITE BLOOD COUNT 6.1 K/mm3 (4.0-10.0)
[2021-07-24 16:58] LABS: CHLORIDE 108 mmol/L (98-107); SODIUM 141 mmol/L (136-145)
[2021-07-24 16:59] LABS: CALCIUM 8.7 mg/dL (8.5-10.1)
[2021-07-24 17:00] LABS: ALBUMIN 3.3 g/dl (3.4-5.0); ANION GAP 7 MMOL/L (8-16); CO2 26 mmol/L (21-32); GLUCOSE,RANDOM 88 mg/dL (74-106)
[2021-07-24 17:03] LABS: CREATININE 0.8 mg/dL (0.55-1.3); SGOT/AST 36 U/L (15-37); SGPT/ALT 19 U/L (13-61)
[2021-07-24 17:05] LABS: TOT PROT 7.5 g/dl (6.4-8.2)
[2021-07-24 17:06] LABS: ALK PHOS 83 U/L (45-117)
[2021-07-24 17:08] LABS: BLOOD UREA NITROGEN 13.2 mg/dL (7-18)
[2021-07-24 17:27] LABS: INR 1.09 (0.83-1.09); PROTHROMBIN TIME (PATIENT) 13.4 SEC (9.7-13.0)
[2021-07-24 17:30] LABS: ACTIVATED PTT 27.5 SECONDS (25.2-36.5)
[2021-07-24] MEDS ORDERED: LACTATED RINGERS SOLUTION 1000 ML INFUS.BAG IV ONE (19:05)
[2021-07-24] MEDS ORDERED: DOCUSATE SODIUM 100 MG CAPSULE (FP) PO PRN (23:14)
[2021-07-24] MEDS ORDERED: POLYETHYLENE GLYCOL (HEALTHYLAX) 3350 17 GM PACKET PO PRN (23:14)
[2021-07-25 01:23] LABS: URINE APPEARANCE CLEAR; URINE BILIRUBIN NEGATIVE (NEGATIVE); URINE COLOR YELLOW; URINE GLUCOSE (UA) 3+ (NEGATIVE); URINE KETONE 2+ (NEGATIVE); URINE LEUK ESTERASE NEGATIVE (NEGATIVE); URINE NITRITE NEGATIVE (NEGATIVE); URINE PROTEIN TRACE (NEGATIVE)
[2021-07-25 06:45] LABS: BASO % 0.4 % (0-2.0); EOS % 6.7 % (0-4.5); HEMATOCRIT 35.9 % (35.4-49); HEMOGLOBIN 12.1 GM/dL (11.7-16.9); LYMPH % 38.2 % (8-40); MCH 32.2 pg (25.7-33.7); MCHC 33.7 g/dl (32.0-35.9); MEAN CELL VOLUME 95.5 fl (80-96); MEAN PLT VOLUME 7.7 fl (7.5-11.1); MONO % 5.8 % (3.8-10.2); NEUT % 48.9 % (42.8-82.8); PLATELET COUNT 185 10^3/uL (134-434); RBC 3.76 M/mm3 (4.00-5.60); RDW 16.2 % (11.9-15.9)
[2021-07-25] MEDS ORDERED: INSULIN SLIDING SCALE (NOVOLOG) 1 VIAL SQ SCH (07:00)
[2021-07-25 07:08] LABS: CALCIUM 8.6 mg/dL (8.5-10.1)
[2021-07-25 07:12] LABS: CREATININE 0.7 mg/dL (0.55-1.3)
[2021-07-25] MEDS ORDERED: ALBUTEROL SO4 2.5/IPRATROPIUM 0.5 INH SOL 3 ML VIAL.NEB. NEB PRN (07:55)
[2021-07-25] MEDS ORDERED: amLODIPine BESYLATE 5 MG TABLET (FP) ONE (08:29)
[2021-07-25] MEDS ORDERED: LOSARTAN POTASSIUM 50 MG TABLET ONE (08:29)
[2021-07-25] MEDS ORDERED: ASPIRIN 81 MG CHEWABLE TABLETS ONE (08:29)
[2021-07-25] MEDS ORDERED: CHOLECALCIFEROL (VIT D3) 1,000 UNIT (25 MCG) TABLET ONE (08:29)
[2021-07-25] MEDS ORDERED: TAMSULOSIN HCL 0.4 MG CAP PO SCH (08:30)
[2021-07-25] MEDS ORDERED: metoPROLOL SUCCINATE 25 MG TAB.SR.24H (FP) ONE (08:30)
[2021-07-25] MEDS: INSULIN SLIDING SCALE (NOVOLOG) 1 VIAL SQ SCH ×4 (08:54→21:08)
[2021-07-25] MEDS: metoPROLOL SUCCINATE 25 MG TAB.SR.24H (FP) PO SCH (09:58)
[2021-07-25] MEDS: ASPIRIN 81 MG CHEWABLE TABLETS PO SCH (09:58)
[2021-07-25] MEDS: LOSARTAN POTASSIUM 50 MG TABLET PO SCH (09:58)
[2021-07-25] MEDS: amLODIPine BESYLATE 5 MG TABLET (FP) PO SCH (09:58)
[2021-07-25] MEDS: PANTOPRAZOLE 20 MG TABLET PO SCH (09:58)
[2021-07-25] MEDS: CHOLECALCIFEROL (VIT D3) 1,000 UNIT (25 MCG) TABLET PO SCH (09:58)
[2021-07-25] MEDS ORDERED: FAMOTIDINE 20 MG TABLET PO SCH (10:00)
[2021-07-25] MEDS ORDERED: ENOXAPARIN NA (PORCINE) 40 MG/0.4 ML DISP.SYRIN SQ SCH (10:00)
[2021-07-25] MEDS ORDERED: APIXABAN 5 MG TABLET PO SCH (10:00)
[2021-07-25] MEDS ORDERED: RAMIPRIL 2.5 MG CAPSULE PO SCH (10:00)
[2021-07-25] MEDS ORDERED: PANTOPRAZOLE 20 MG TABLET PO SCH (10:00)
[2021-07-25 13:53] LABS: BASO % 0.3 % (0-2.0); EOS % 2.2 % (0-4.5); HEMATOCRIT 36.2 % (35.4-49); HEMOGLOBIN 12.4 GM/dL (11.7-16.9); LYMPH % 33.4 % (8-40); MCH 32.5 pg (25.7-33.7); MCHC 34.3 g/dl (32.0-35.9); MEAN PLT VOLUME 7.7 fl (7.5-11.1); MONO % 6.3 % (3.8-10.2); NEUT % 57.8 % (42.8-82.8); PLATELET COUNT 192 10^3/uL (134-434); RBC 3.81 M/mm3 (4.00-5.60); RDW 15.9 % (11.9-15.9)
[2021-07-25 14:39] LABS: ALBUMIN 3.1 g/dl (3.4-5.0); BLOOD UREA NITROGEN 13.1 mg/dL (7-18); CALCIUM 8.3 mg/dL (8.5-10.1); MAGNESIUM 1.9 mg/dL (1.8-2.4)
[2021-07-25 14:41] LABS: BILIRUBIN,TOTAL 0.9 mg/dL (0.2-1); TOT PROT 7.6 g/dl (6.4-8.2)
[2021-07-25 14:42] LABS: CREATININE 0.6 mg/dL (0.55-1.3)
[2021-07-25] MEDS ORDERED: SODIUM CHLORIDE 1,000 ML IV SCH (18:00)
[2021-07-25 19:45] VITALS: BMI 24.6
[2021-07-25] MEDS: ACETAMINOPHEN 325 MG TABLET (FP) PO PRN (20:52)
[2021-07-25] MEDS: DOCUSATE SODIUM 100 MG CAPSULE (FP) PO SCH (21:00)
[2021-07-25] MEDS: ATORVASTATIN CA 20 MG TABLET (FP) PO SCH (21:07)
[2021-07-25] MEDS ORDERED: ATORVASTATIN CA 80 MG TABLET (FP) PO SCH (22:00)
[2021-07-26] MEDS: INSULIN SLIDING SCALE (NOVOLOG) 1 VIAL SQ SCH ×4 (06:43→21:53)
[2021-07-26 08:43] LABS: BASO % 0.3 % (0-2.0); HEMATOCRIT 35.6 % (35.4-49); HEMOGLOBIN 12.1 GM/dL (11.7-16.9); LYMPH % 41.9 % (8-40); MCH 32.1 pg (25.7-33.7); MCHC 33.9 g/dl (32.0-35.9); MEAN CELL VOLUME 94.7 fl (80-96); MEAN PLT VOLUME 7.7 fl (7.5-11.1); MONO % 7.4 % (3.8-10.2); NEUT % 45.4 % (42.8-82.8); PLATELET COUNT 198 10^3/uL (134-434); RBC 3.76 M/mm3 (4.00-5.60)
[2021-07-26 09:05] LABS: CALCIUM 8.3 mg/dL (8.5-10.1)
[2021-07-26 09:06] LABS: ALBUMIN 3.1 g/dl (3.4-5.0); BLOOD UREA NITROGEN 12.3 mg/dL (7-18); MAGNESIUM 1.9 mg/dL (1.8-2.4)
[2021-07-26 09:09] LABS: CREATININE 0.6 mg/dL (0.55-1.3)
[2021-07-26 09:10] LABS: BILIRUBIN,TOTAL 0.7 mg/dL (0.2-1); TOT PROT 7.5 g/dl (6.4-8.2)
[2021-07-26] MEDS: ASPIRIN 81 MG CHEWABLE TABLETS PO SCH (09:36)
[2021-07-26] MEDS: amLODIPine BESYLATE 5 MG TABLET (FP) PO SCH (09:36)
[2021-07-26] MEDS: LOSARTAN POTASSIUM 50 MG TABLET PO SCH (09:36)
[2021-07-26] MEDS: CHOLECALCIFEROL (VIT D3) 1,000 UNIT (25 MCG) TABLET PO SCH (09:36)
[2021-07-26] MEDS: metoPROLOL SUCCINATE 25 MG TAB.SR.24H (FP) PO SCH (09:36)
[2021-07-26] MEDS: PANTOPRAZOLE 20 MG TABLET PO SCH (09:37)
[2021-07-26] MEDS: ACETAMINOPHEN 325 MG TABLET (FP) PO PRN (18:59)
[2021-07-26] MEDS: DOCUSATE SODIUM 100 MG CAPSULE (FP) PO SCH (21:03)
[2021-07-26] MEDS: ATORVASTATIN CA 20 MG TABLET (FP) PO SCH (21:03)
[2021-07-27] MEDS: INSULIN SLIDING SCALE (NOVOLOG) 1 VIAL SQ SCH ×4 (06:43→21:04)
[2021-07-27] MEDS: CHOLECALCIFEROL (VIT D3) 1,000 UNIT (25 MCG) TABLET PO SCH (09:33)
[2021-07-27] MEDS: amLODIPine BESYLATE 5 MG TABLET (FP) PO SCH (09:34)
[2021-07-27] MEDS: PANTOPRAZOLE 20 MG TABLET PO SCH (09:34)
[2021-07-27] MEDS: ASPIRIN 81 MG CHEWABLE TABLETS PO SCH (09:34)
[2021-07-27] MEDS: LOSARTAN POTASSIUM 50 MG TABLET PO SCH (09:34)
[2021-07-27] MEDS: metoPROLOL SUCCINATE 25 MG TAB.SR.24H (FP) PO SCH (09:34)
[2021-07-27 15:33] LABS: BASO % 1.3 % (0-2.0); EOS % 2.7 % (0-4.5); HEMATOCRIT 36.9 % (35.4-49); HEMOGLOBIN 12.6 GM/dL (11.7-16.9); LYMPH % 37.3 % (8-40); MCH 32.3 pg (25.7-33.7); MCHC 34.1 g/dl (32.0-35.9); MEAN CELL VOLUME 94.6 fl (80-96); MEAN PLT VOLUME 7.5 fl (7.5-11.1); MONO % 5.5 % (3.8-10.2); NEUT % 53.2 % (42.8-82.8); PLATELET COUNT 203 10^3/uL (134-434); RDW 15.8 % (11.9-15.9); WHITE BLOOD COUNT 5.3 K/mm3 (4.0-10.0)
[2021-07-27 15:50] LABS: CALCIUM 8.7 mg/dL (8.5-10.1)
[2021-07-27 15:51] LABS: ALBUMIN 3.2 g/dl (3.4-5.0); BLOOD UREA NITROGEN 14.6 mg/dL (7-18); MAGNESIUM 1.9 mg/dL (1.8-2.4)
[2021-07-27 15:54] LABS: CREATININE 0.8 mg/dL (0.55-1.3)
[2021-07-27 15:56] LABS: BILIRUBIN,TOTAL 0.4 mg/dL (0.2-1); TOT PROT 7.6 g/dl (6.4-8.2)
[2021-07-27] MEDS: ACETAMINOPHEN 325 MG TABLET (FP) PO PRN (20:00)
[2021-07-27] MEDS: DOCUSATE SODIUM 100 MG CAPSULE (FP) PO SCH (21:03)
[2021-07-27] MEDS: ATORVASTATIN CA 20 MG TABLET (FP) PO SCH (21:03)
[2021-07-28 03:20] VITALS: BP 138/87; PULSE 101; TEMP 98.4
[2021-07-28] MEDS: INSULIN SLIDING SCALE (NOVOLOG) 1 VIAL SQ SCH (06:33)
[2021-07-28 09:02] LABS: BASO % 0.5 % (0-2.0); EOS % 2.1 % (0-4.5); HEMATOCRIT 40.4 % (35.4-49); HEMOGLOBIN 13.8 GM/dL (11.7-16.9); LYMPH % 39.1 % (8-40); MCH 32.4 pg (25.7-33.7); MCHC 34.1 g/dl (32.0-35.9); MEAN PLT VOLUME 7.6 fl (7.5-11.1); MONO % 7.3 % (3.8-10.2); PLATELET COUNT 227 10^3/uL (134-434); RBC 4.25 M/mm3 (4.00-5.60); RDW 15.9 % (11.9-15.9); WHITE BLOOD COUNT 5.1 K/mm3 (4.0-10.0)
[2021-07-28] MEDS: amLODIPine BESYLATE 5 MG TABLET (FP) PO SCH (09:06)
[2021-07-28] MEDS: PANTOPRAZOLE 20 MG TABLET PO SCH (09:06)
[2021-07-28] MEDS: CHOLECALCIFEROL (VIT D3) 1,000 UNIT (25 MCG) TABLET PO SCH (09:06)
[2021-07-28] MEDS: LOSARTAN POTASSIUM 50 MG TABLET PO SCH (09:06)
[2021-07-28] MEDS: metoPROLOL SUCCINATE 25 MG TAB.SR.24H (FP) PO SCH (09:06)
[2021-07-28] MEDS: ASPIRIN 81 MG CHEWABLE TABLETS PO SCH (09:06)
[2021-07-28 09:35] LABS: CALCIUM 9.3 mg/dL (8.5-10.1)
[2021-07-28 09:36] LABS: ALBUMIN 3.6 g/dl (3.4-5.0); BLOOD UREA NITROGEN 14.9 mg/dL (7-18); MAGNESIUM 2.1 mg/dL (1.8-2.4)
[2021-07-28 09:39] LABS: CREATININE 0.7 mg/dL (0.55-1.3)
[2021-07-28 09:40] LABS: BILIRUBIN,TOTAL 0.8 mg/dL (0.2-1); TOT PROT 8.5 g/dl (6.4-8.2)
== END 2021-07-28 10:45 | DRG 92 ==
LOC: JER 13:34 → JERBED 22:34 → J6S 07-25 11:54
PROVIDERS: ADMIT Internal Medicine; ATTEND Family Medicine
DX: R29.6 Repeated falls (principal); L97.418 Non-pressure chronic ulcer of right heel and midfoot with other specified severity; M47.16 Other spondylosis with myelopathy, lumbar region; E11.621 Type 2 diabetes mellitus with foot ulcer; K21.9 Gastro-esophageal reflux disease without esophagitis; E78.00 Pure hypercholesterolemia, unspecified; I10 Essential (primary) hypertension; I71.2 Thoracic aortic aneurysm, without rupture; M54.5 Low back pain; G89.4 Chronic pain syndrome; R53.1 Weakness; F32.9 Major depressive disorder, single episode, unspecified; M51.17 Intervertebral disc disorders with radiculopathy, lumbosacral region; I25.10 Atherosclerotic heart disease of native coronary artery without angina pectoris; E11.40 Type 2 diabetes mellitus with diabetic neuropathy, unspecified; K59.00 Constipation, unspecified; W18.39XA Other fall on same level, initial encounter; Y92.89 Other specified places as the place of occurrence of the external cause
CPT/HCPCS: 36415; 70450-TC; 71045-TC-FY; 72125-TC; 72170-TC-FY; 73552-TC-RT-FY; 80048; 80053; 80061; 81003; 82550; 82553; 82962; 83036; 83735; 84439; 84443; 84484; 85025; 85610; 85730; 86850; 86900; 86901; 87086; 93005; 93010; 93880-TC; 97116-GP; 97162-GP; 99285-25; C9803; U0003; U0005

== ENCOUNTER 2021-09-22 06:46 | Observation (INO) | payer OTHER, BC ==
[2021-09-22] MEDS ORDERED: ACETAMINOPHEN 1000 MG/100 ML VIAL IVPB ONE (07:33)
[2021-09-22] MEDS ORDERED: ACETAMINOPHEN 500 MG TABLET (FP) PO ONE (07:40)
[2021-09-22] MEDS ORDERED: SODIUM CHLORIDE 1,000 ML IV STA (07:42)
[2021-09-22] MEDS ORDERED: ACETAMINOPHEN 325 MG TABLET (FP) ONE (07:42)
[2021-09-22 08:53] LABS: BASO % 0.3 % (0-2.0); EOS % 1.2 % (0-4.5); HEMATOCRIT 38.7 % (35.4-49); MCH 32.2 pg (25.7-33.7); MCHC 33.6 g/dl (32.0-35.9); MEAN CELL VOLUME 95.7 fl (80-96); MEAN PLT VOLUME 8.2 fl (7.5-11.1); MONO % 8.3 % (3.8-10.2); NEUT % 69.2 % (42.8-82.8); PLATELET COUNT 172 10^3/uL (134-434); RBC 4.04 M/mm3 (4.00-5.60); RDW 16.7 % (11.9-15.9); WHITE BLOOD COUNT 6.8 K/mm3 (4.0-10.0)
[2021-09-22 08:57] LABS: CHLORIDE 100 mmol/L (98-107); SODIUM 137 mmol/L (136-145)
[2021-09-22 08:59] LABS: CALCIUM 9.3 mg/dL (8.5-10.1)
[2021-09-22 09:00] LABS: ANION GAP 9 MMOL/L (8-16); BLOOD UREA NITROGEN 20.2 mg/dL (7-18); CO2 29 mmol/L (21-32); GLUCOSE,RANDOM 91 mg/dL (74-106)
[2021-09-22 09:03] LABS: CREATININE 0.8 mg/dL (0.55-1.3); SGOT/AST 34 U/L (15-37); SGPT/ALT 26 U/L (13-61)
[2021-09-22 09:05] LABS: BILIRUBIN,TOTAL 1.6 mg/dL (0.2-1); TOT PROT 8.3 g/dl (6.4-8.2)
[2021-09-22 09:06] LABS: ALK PHOS 108 U/L (45-117)
[2021-09-22 17:18] LABS: URINE APPEARANCE CLEAR; URINE BILIRUBIN NEGATIVE (NEGATIVE); URINE COLOR YELLOW; URINE GLUCOSE (UA) 3+ (NEGATIVE); URINE KETONE 2+ (NEGATIVE); URINE LEUK ESTERASE NEGATIVE (NEGATIVE); URINE NITRITE NEGATIVE (NEGATIVE); URINE PROTEIN NEGATIVE (NEGATIVE); URINE UROBILINOGEN 0.2 mg/dL (0.2-1.0)
[2021-09-22] MEDS ORDERED: POLYETHYLENE GLYCOL (HEALTHYLAX) 3350 17 GM PACKET PO PRN (17:21)
[2021-09-22] MEDS ORDERED: ACETAMINOPHEN 325 MG TABLET (FP) PO PRN (17:21)
[2021-09-22] MEDS ORDERED: ALBUTEROL SO4 2.5/IPRATROPIUM 0.5 INH SOL 3 ML VIAL.NEB. NEB PRN (17:21)
[2021-09-22 21:14] VITALS: BMI 23.1
[2021-09-22] MEDS: ATORVASTATIN CA 80 MG TABLET (FP) PO SCH (21:34)
[2021-09-22] MEDS: HEPARIN NA (PORCINE) 5,000 UNITS/ML 1ML VIAL SQ SCH (21:34)
[2021-09-23] MEDS: PANTOPRAZOLE 40 MG TABLET PO SCH (09:41)
[2021-09-23] MEDS: HEPARIN NA (PORCINE) 5,000 UNITS/ML 1ML VIAL SQ SCH ×2 (09:42→21:06)
[2021-09-23] MEDS: amLODIPine BESYLATE 5 MG TABLET (FP) PO SCH (09:42)
[2021-09-23] MEDS: LOSARTAN POTASSIUM 50 MG TABLET PO SCH (09:42)
[2021-09-23] MEDS: metoPROLOL SUCCINATE 25 MG TAB.SR.24H (FP) PO SCH (09:42)
[2021-09-23] MEDS: ASPIRIN 81 MG CHEWABLE TABLETS PO SCH (09:42)
[2021-09-23 11:14] LABS: BASO % 0.3 % (0-2.0); EOS % 0.3 % (0-4.5); HEMATOCRIT 36.2 % (35.4-49); LYMPH % 20.1 % (8-40); MCH 31.9 pg (25.7-33.7); MCHC 33.2 g/dl (32.0-35.9); MEAN CELL VOLUME 96.1 fl (80-96); MEAN PLT VOLUME 8.3 fl (7.5-11.1); MONO % 7.2 % (3.8-10.2); NEUT % 72.1 % (42.8-82.8); PLATELET COUNT 176 10^3/uL (134-434); RBC 3.77 M/mm3 (4.00-5.60); RDW 16.3 % (11.9-15.9); WHITE BLOOD COUNT 5.5 K/mm3 (4.0-10.0)
[2021-09-23 17:29] LABS: ALBUMIN 3.2 g/dl (3.4-5.0); ALK PHOS 86 U/L (45-117); ANION GAP 14 MMOL/L (8-16); BILIRUBIN,TOTAL 0.8 mg/dL (0.2-1); BLOOD UREA NITROGEN 19.6 mg/dL (7-18); CALCIUM 8.4 mg/dL (8.5-10.1); CHLORIDE 106 mmol/L (98-107); CO2 21 mmol/L (21-32); CREATININE 0.7 mg/dL (0.55-1.3); GLUCOSE,RANDOM 144 mg/dL (74-106); SGOT/AST 25 U/L (15-37); SGPT/ALT 7 U/L (13-61); SODIUM 140 mmol/L (136-145); TOT PROT 7.1 g/dl (6.4-8.2)
[2021-09-23] MEDS: ATORVASTATIN CA 80 MG TABLET (FP) PO SCH (21:06)
[2021-09-24] MEDS ORDERED: PT OWN MED DRAWER 7, Y5N ONE (02:32)
[2021-09-24] MEDS: LOSARTAN POTASSIUM 50 MG TABLET PO SCH (10:08)
[2021-09-24] MEDS: HEPARIN NA (PORCINE) 5,000 UNITS/ML 1ML VIAL SQ SCH (10:08)
[2021-09-24] MEDS: metoPROLOL SUCCINATE 25 MG TAB.SR.24H (FP) PO SCH (10:08)
[2021-09-24] MEDS: amLODIPine BESYLATE 5 MG TABLET (FP) PO SCH (10:08)
[2021-09-24] MEDS: PANTOPRAZOLE 40 MG TABLET PO SCH (10:08)
[2021-09-24] MEDS: ASPIRIN 81 MG CHEWABLE TABLETS PO SCH (10:08)
[2021-09-24 14:01] VITALS: BP 158/92; PULSE 104; TEMP 98
== END 2021-09-24 14:12 | disposition home health service (06) ==
LOC: JER 06:46 → INTOOBSV 14:09 → JERBED 14:09 → J6S 17:24
PROVIDERS: ADMIT Internal Medicine; ATTEND Family Medicine
PROC: 3E023GC Introduction of Other Therapeutic Substance into Muscle, Percutaneous Approach (ICD-10-PCS; principal; 2021-09-22)
PROC: 3E0337Z Introduction of Electrolytic and Water Balance Substance into Peripheral Vein, Percutaneous Approach (ICD-10-PCS; 2021-09-22)
DX: G20 Parkinson's disease (principal); R29.6 Repeated falls; I10 Essential (primary) hypertension; E78.5 Hyperlipidemia, unspecified; E11.9 Type 2 diabetes mellitus without complications; F32.9 Major depressive disorder, single episode, unspecified; I71.2 Thoracic aortic aneurysm, without rupture; W18.39XA Other fall on same level, initial encounter; Y93.89 Activity, other specified; Y92.89 Other specified places as the place of occurrence of the external cause; K21.9 Gastro-esophageal reflux disease without esophagitis; Z98.49 Cataract extraction status, unspecified eye; Z87.891 Personal history of nicotine dependence; Z29.9 Encounter for prophylactic measures, unspecified; M21.379 Foot drop, unspecified foot; R26.9 Unspecified abnormalities of gait and mobility; G95.9 Disease of spinal cord, unspecified; Z88.6 Allergy status to analgesic agent
CPT/HCPCS: 36415; 70450-TC; 70486-TC; 71045-TC-FY; 72125-TC; 72141-TC; 72170-TC-FY; 73502-TC-RT-FY; 73552-TC-RT-FY; 80053; 81003; 82550; 82553; 82607; 82962; 84443; 84484; 85025; 87086; 93005; 93010; 96360; 96372; 97116-GP; 99285-25; C9803; G0378; J1644; U0003; U0005

== ENCOUNTER 2022-03-04 13:11 | Observation (INO) | payer OTHER, BC ==
[2022-03-04 13:45] VITALS: BMI 25.0
[2022-03-04 16:22] LABS: BASO % 0.6 % (0-2.0); EOS % 2.4 % (0-4.5); HEMOGLOBIN 12.1 GM/dL (11.7-16.9); MCH 31.3 pg (25.7-33.7); MCHC 33.8 g/dl (32.0-35.9); MEAN CELL VOLUME 92.7 fl (80-96); MONO % 10.8 % (3.8-10.2); NEUT % 44.2 % (42.8-82.8); RBC 3.88 M/mm3 (4.00-5.60); RDW 17.9 % (11.9-15.9); WHITE BLOOD COUNT 4.4 K/mm3 (4.0-10.0)
[2022-03-04 16:35] LABS: PLATELET COUNT 157 10^3/uL (134-434)
[2022-03-04 16:56] LABS: MAGNESIUM 2.3 mg/dL (1.8-2.4)
[2022-03-04 17:00] LABS: PHOSPHOROUS 3.2 mg/dL (2.5-4.9)
[2022-03-04 17:52] LABS: CALCIUM 9.1 mg/dL (8.5-10.1)
[2022-03-04 17:53] LABS: ALBUMIN 3.6 g/dl (3.4-5.0)
[2022-03-04 17:56] LABS: CREATININE 0.8 mg/dL (0.55-1.3)
[2022-03-04 17:57] LABS: BILIRUBIN,TOTAL 0.6 mg/dL (0.2-1); TOT PROT 7.4 g/dl (6.4-8.2)
[2022-03-04] MEDS ORDERED: ACETAMINOPHEN 1000 MG/100 ML BAG IVPB ONE (18:29)
[2022-03-04] MEDS ORDERED: ACETAMINOPHEN INJECTION 100 ML IVPB ONE (18:37)
[2022-03-04] MEDS ORDERED: POLYETHYLENE GLYCOL (HEALTHYLAX) 3350 17 GM PACKET PO PRN (20:20)
[2022-03-04] MEDS: INSULIN SLIDING SCALE (NOVOLOG) 1 VIAL SQ SCH (22:15)
[2022-03-04 22:21] LABS: PH,URINE 7.5 (5.0-8.0); URINE APPEARANCE CLEAR; URINE BILIRUBIN NEGATIVE (NEGATIVE); URINE COLOR YELLOW; URINE GLUCOSE (UA) 2+ (NEGATIVE); URINE KETONE NEGATIVE (NEGATIVE); URINE LEUK ESTERASE NEGATIVE (NEGATIVE); URINE NITRITE NEGATIVE (NEGATIVE); URINE PROTEIN NEGATIVE (NEGATIVE); URINE UROBILINOGEN 0.2 mg/dL (0.2-1.0)
[2022-03-04] MEDS: ATORVASTATIN CA 80 MG TABLET (FP) PO SCH (23:38)
[2022-03-04] MEDS: DOCUSATE SODIUM 100 MG CAPSULE (FP) PO SCH (23:38)
[2022-03-04] MEDS: PREGABALIN 75 MG CAPSULE PO SCH (23:38)
[2022-03-05] MEDS ORDERED: ACETAMINOPHEN 325 MG TABLET (FP) PO PRN (01:00)
[2022-03-05] MEDS ORDERED: ACETAMINOPHEN 1000 MG/100 ML BAG IVPB PRN (01:00)
[2022-03-05] MEDS: INSULIN SLIDING SCALE (NOVOLOG) 1 VIAL SQ SCH ×4 (06:13→21:30)
[2022-03-05 09:39] LABS: BASO % 0.5 % (0-2.0); EOS % 3.1 % (0-4.5); HEMATOCRIT 37.5 % (35.4-49); HEMOGLOBIN 12.4 GM/dL (11.7-16.9); MCH 30.8 pg (25.7-33.7); MCHC 33.1 g/dl (32.0-35.9); MEAN CELL VOLUME 93.1 fl (80-96); MEAN PLT VOLUME 8.1 fl (7.5-11.1); MONO % 9.6 % (3.8-10.2); NEUT % 47.8 % (42.8-82.8); PLATELET COUNT 168 10^3/uL (134-434); RBC 4.03 M/mm3 (4.00-5.60); RDW 17.7 % (11.9-15.9); WHITE BLOOD COUNT 4.4 K/mm3 (4.0-10.0)
[2022-03-05 09:47] LABS: INR 1.03 (0.83-1.09); PROTHROMBIN TIME (PATIENT) 11.8 SEC (9.7-13.0)
[2022-03-05 09:49] LABS: ACTIVATED PTT 29.1 SECONDS (25.2-36.5)
[2022-03-05] MEDS: amLODIPine BESYLATE 5 MG TABLET (FP) PO SCH (10:08)
[2022-03-05] MEDS: metoPROLOL SUCCINATE 25 MG TAB.SR.24H (FP) PO SCH (10:08)
[2022-03-05] MEDS: PREGABALIN 75 MG CAPSULE PO SCH ×2 (10:09→21:30)
[2022-03-05] MEDS: PANTOPRAZOLE 20 MG TABLET PO SCH (10:09)
[2022-03-05] MEDS: SERTRALINE HCL 50 MG TABLET (FP) PO SCH (10:09)
[2022-03-05] MEDS: LOSARTAN POTASSIUM 50 MG TABLET PO SCH (10:09)
[2022-03-05] MEDS: ENOXAPARIN NA (PORCINE) 40 MG/0.4 ML DISP.SYRIN SQ SCH (10:09)
[2022-03-05 10:25] LABS: BLOOD UREA NITROGEN 14.7 mg/dL (7-18)
[2022-03-05 10:26] LABS: CALCIUM 9.3 mg/dL (8.5-10.1)
[2022-03-05 10:29] LABS: CREATININE 0.7 mg/dL (0.55-1.3)
[2022-03-05] MEDS: oxyCODONE HCL 5 MG TABLET PO PRN (15:02)
[2022-03-05] MEDS: DOCUSATE SODIUM 100 MG CAPSULE (FP) PO SCH (21:30)
[2022-03-05] MEDS: ATORVASTATIN CA 80 MG TABLET (FP) PO SCH (21:30)
[2022-03-06] MEDS ORDERED: ACETAMINOPHEN 325 MG TABLET (FP) PO PRN (01:00)
[2022-03-06] MEDS: INSULIN SLIDING SCALE (NOVOLOG) 1 VIAL SQ SCH ×4 (06:20→22:53)
[2022-03-06] MEDS: metoPROLOL SUCCINATE 25 MG TAB.SR.24H (FP) PO SCH (10:00)
[2022-03-06] MEDS: PANTOPRAZOLE 20 MG TABLET PO SCH (10:00)
[2022-03-06] MEDS: amLODIPine BESYLATE 5 MG TABLET (FP) PO SCH (10:01)
[2022-03-06] MEDS: ENOXAPARIN NA (PORCINE) 40 MG/0.4 ML DISP.SYRIN SQ SCH (10:01)
[2022-03-06] MEDS: SERTRALINE HCL 50 MG TABLET (FP) PO SCH (10:01)
[2022-03-06] MEDS: LOSARTAN POTASSIUM 50 MG TABLET PO SCH (10:01)
[2022-03-06] MEDS: PREGABALIN 75 MG CAPSULE PO SCH ×2 (10:01→22:37)
[2022-03-06] MEDS: oxyCODONE HCL 5 MG TABLET PO PRN (13:03)
[2022-03-06] MEDS: ATORVASTATIN CA 80 MG TABLET (FP) PO SCH (22:37)
[2022-03-06] MEDS: DOCUSATE SODIUM 100 MG CAPSULE (FP) PO SCH (22:37)
[2022-03-07] MEDS: INSULIN SLIDING SCALE (NOVOLOG) 1 VIAL SQ SCH ×4 (06:41→22:17)
[2022-03-07] MEDS: ENOXAPARIN NA (PORCINE) 40 MG/0.4 ML DISP.SYRIN SQ SCH (10:07)
[2022-03-07] MEDS: amLODIPine BESYLATE 5 MG TABLET (FP) PO SCH (10:08)
[2022-03-07] MEDS: metoPROLOL SUCCINATE 25 MG TAB.SR.24H (FP) PO SCH (10:08)
[2022-03-07] MEDS: SERTRALINE HCL 50 MG TABLET (FP) PO SCH (10:08)
[2022-03-07] MEDS: PANTOPRAZOLE 20 MG TABLET PO SCH (10:08)
[2022-03-07] MEDS: LOSARTAN POTASSIUM 50 MG TABLET PO SCH (10:08)
[2022-03-07] MEDS: PREGABALIN 75 MG CAPSULE PO SCH ×2 (10:09→22:17)
[2022-03-07] MEDS: oxyCODONE HCL 5 MG TABLET PO PRN (13:46)
[2022-03-07] MEDS: DOCUSATE SODIUM 100 MG CAPSULE (FP) PO SCH (22:16)
[2022-03-07] MEDS: ATORVASTATIN CA 80 MG TABLET (FP) PO SCH (22:17)
[2022-03-08] MEDS: INSULIN SLIDING SCALE (NOVOLOG) 1 VIAL SQ SCH ×4 (06:18→21:52)
[2022-03-08] MEDS: ENOXAPARIN NA (PORCINE) 40 MG/0.4 ML DISP.SYRIN SQ SCH (10:14)
[2022-03-08] MEDS: SERTRALINE HCL 50 MG TABLET (FP) PO SCH (10:15)
[2022-03-08] MEDS: PREGABALIN 75 MG CAPSULE PO SCH ×2 (10:15→21:51)
[2022-03-08] MEDS: LOSARTAN POTASSIUM 50 MG TABLET PO SCH (10:15)
[2022-03-08] MEDS: metoPROLOL SUCCINATE 25 MG TAB.SR.24H (FP) PO SCH (10:16)
[2022-03-08] MEDS: amLODIPine BESYLATE 5 MG TABLET (FP) PO SCH (10:16)
[2022-03-08] MEDS: PANTOPRAZOLE 20 MG TABLET PO SCH (10:18)
[2022-03-08] MEDS: ATORVASTATIN CA 80 MG TABLET (FP) PO SCH (21:51)
[2022-03-08] MEDS: DOCUSATE SODIUM 100 MG CAPSULE (FP) PO SCH (21:51)
[2022-03-09] MEDS: INSULIN SLIDING SCALE (NOVOLOG) 1 VIAL SQ SCH ×3 (06:54→17:31)
[2022-03-09] MEDS: LOSARTAN POTASSIUM 50 MG TABLET PO SCH (10:45)
[2022-03-09] MEDS: ENOXAPARIN NA (PORCINE) 40 MG/0.4 ML DISP.SYRIN SQ SCH (10:45)
[2022-03-09] MEDS: SERTRALINE HCL 50 MG TABLET (FP) PO SCH (10:45)
[2022-03-09] MEDS: PREGABALIN 75 MG CAPSULE PO SCH (10:45)
[2022-03-09] MEDS: PANTOPRAZOLE 20 MG TABLET PO SCH (10:46)
[2022-03-09] MEDS: metoPROLOL SUCCINATE 25 MG TAB.SR.24H (FP) PO SCH (10:46)
[2022-03-09] MEDS: amLODIPine BESYLATE 5 MG TABLET (FP) PO SCH (10:46)
[2022-03-09 14:45] VITALS: BP 114/72; PULSE 82; TEMP 98.1
== END 2022-03-09 18:55 ==
LOC: JER 13:11 → JERBED 15:16 → J7W 21:48
PROVIDERS: ADMIT Hospitalist; ATTEND Family Medicine
PROC: 3E033NZ Introduction of Analgesics, Hypnotics, Sedatives into Peripheral Vein, Percutaneous Approach (ICD-10-PCS; principal; 2022-03-04)
PROC: 3E023GC Introduction of Other Therapeutic Substance into Muscle, Percutaneous Approach (ICD-10-PCS; 2022-03-04)
DX: R29.6 Repeated falls (principal); R26.81 Unsteadiness on feet; E78.5 Hyperlipidemia, unspecified; E11.9 Type 2 diabetes mellitus without complications; K21.9 Gastro-esophageal reflux disease without esophagitis; G20 Parkinson's disease; I10 Essential (primary) hypertension; I71.2 Thoracic aortic aneurysm, without rupture; M21.371 Foot drop, right foot; G89.29 Other chronic pain; Z87.891 Personal history of nicotine dependence; M54.9 Dorsalgia, unspecified; R53.1 Weakness; S09.90XA Unspecified injury of head, initial encounter; W18.39XA Other fall on same level, initial encounter; Y93.89 Activity, other specified; Y92.89 Other specified places as the place of occurrence of the external cause; Z88.6 Allergy status to analgesic agent
CPT/HCPCS: 36415; 70450-TC; 71045-TC-FY; 72125-TC; 72170-TC-FY; 73502-TC-RT-FY; 73552-TC-RT-FY; 80048; 80053; 81003; 82550; 82553; 82962; 83735; 84100; 85025; 85610; 85730; 87077; 87086; 93005; 93010; 96372; 96374; 97116-GP; 97161-GP; 99285-25; C9803-CS; G0378; U0003; U0005

== ENCOUNTER 2022-04-15 17:17 | Inpatient (IN) | payer OTHER, BC ==
[2022-04-15 17:59] VITALS: BMI 26.1
[2022-04-15] MEDS ORDERED: BACITRACIN 15 GM TUBE TOPICAL OINTMENT ONE (18:37)
[2022-04-15 18:40] LABS: BASO % 0.4 % (0-2.0); EOS % 6.5 % (0-4.5); HEMOGLOBIN 11.4 GM/dL (11.7-16.9); LYMPH % 12.5 % (8-40); MCH 31.5 pg (25.7-33.7); MCHC 32.7 g/dl (32.0-35.9); MEAN CELL VOLUME 96.5 fl (80-96); MEAN PLT VOLUME 8.2 fl (7.5-11.1); NEUT % 73.6 % (42.8-82.8); PLATELET COUNT 177 10^3/uL (134-434); RBC 3.63 M/mm3 (4.00-5.60); RDW 17.7 % (11.9-15.9); VENOUS BASE EXCESS -1.2 mmol/L (-2-2); VENOUS O2 SATURATION 50.8 % (70-80); VENOUS PCO2 48.9 mmHg (38-52); VENOUS PH 7.331 (7.310-7.410); WHITE BLOOD COUNT 4.5 K/mm3 (4.0-10.0)
[2022-04-15 18:42] LABS: EPI CELLS 8 /uL (0-25.1); HYALINE CASTS 5 /uL (0-3.1); PH,URINE 6.5 (5.0-8.0); URINE APPEARANCE CLEAR; URINE BACTERIA 3 /uL (0-1359); URINE BILIRUBIN NEGATIVE (NEGATIVE); URINE COLOR YELLOW; URINE GLUCOSE (UA) 3+ (NEGATIVE); URINE KETONE TRACE (NEGATIVE); URINE LEUK ESTERASE NEGATIVE (NEGATIVE); URINE NITRITE NEGATIVE (NEGATIVE); URINE PROTEIN 1+ (NEGATIVE); URINE RBC 4 /uL (0-23.9); URINE UROBILINOGEN 0.2 mg/dL (0.2-1.0); URINE WBC 3 /uL (0-25.8)
[2022-04-15 18:48] LABS: INR 1.22 (0.83-1.09); PROTHROMBIN TIME (PATIENT) 14.1 SEC (9.7-13.0)
[2022-04-15 18:51] LABS: ACTIVATED PTT 29.8 SECONDS (25.2-36.5)
[2022-04-15] MEDS ORDERED: DEXTROSE 5%-LACTATED RINGERS 1,000 ML IV SCH (19:00)
[2022-04-15] MEDS ORDERED: ACETAMINOPHEN 1000 MG/100 ML BAG IVPB ONE (19:01)
[2022-04-15 19:05] LABS: CHLORIDE 106 mmol/L (98-107); SODIUM 142 mmol/L (136-145)
[2022-04-15 19:07] LABS: CALCIUM 8.8 mg/dL (8.5-10.1)
[2022-04-15 19:08] LABS: ALBUMIN 3.6 g/dl (3.4-5.0); ANION GAP 9 MMOL/L (8-16); BLOOD UREA NITROGEN 31.9 mg/dL (7-18); CO2 27 mmol/L (21-32)
[2022-04-15 19:11] LABS: CREATININE 1.5 mg/dL (0.55-1.3); SGOT/AST 34 U/L (15-37); SGPT/ALT 13 U/L (13-61)
[2022-04-15 19:13] LABS: BILIRUBIN,TOTAL 0.8 mg/dL (0.2-1); TOT PROT 7.7 g/dl (6.4-8.2)
[2022-04-15 19:14] LABS: ALK PHOS 78 U/L (45-117)
[2022-04-15 19:20] LABS: ANISOCYTOSIS 1+; MACROCYTOSIS 0; OVALOCYTE 1+; TOXIC GRANULATION 1+
[2022-04-15] MEDS ORDERED: ACETAMINOPHEN INJECTION 100 ML IVPB ONE (19:21)
[2022-04-15] MEDS ORDERED: DEXAMETHASONE SOD PHOSPHATE 10 MG/1 ML VIAL IVPUSH ONE (20:01)
[2022-04-15 20:10] LABS: LACTIC ACID 3.6 mmol/L (0.4-2.0)
[2022-04-15 20:16] LABS: GLUCOSE,RANDOM 40 mg/dL (74-106)
[2022-04-15] MEDS ORDERED: DEXTROSE 50%-WATER - 25 GM/50 ML VIAL IVPUSH ONE (20:17)
[2022-04-15] MEDS ORDERED: DEXTROSE 50%-WATER 25 GM/50 ML DISP.SYRIN ONE (20:20)
[2022-04-15] MEDS ORDERED: DEXAMETHASONE SOD PHOSPHATE 10 MG/1 ML VIAL ONE (20:40)
[2022-04-15] MEDS ORDERED: POLYETHYLENE GLYCOL (HEALTHYLAX) 3350 17 GM PACKET PO PRN (20:42)
[2022-04-15 23:48] LABS: LACTIC ACID 2.5 mmol/L (0.4-2.0)
[2022-04-16] MEDS ORDERED: ACETAMINOPHEN 1000 MG/100 ML BAG IVPB PRN (01:00)
[2022-04-16] MEDS ORDERED: DEXTROSE 5%-NORMAL SALINE 1,000 ML IV SCH (04:15)
[2022-04-16] MEDS ORDERED: POLYETHYLENE GLYCOL (HEALTHYLAX) 3350 17 GM PACKET PO PRN (05:54)
[2022-04-16 07:56] LABS: CALCIUM 8.9 mg/dL (8.5-10.1)
[2022-04-16 07:57] LABS: BLOOD UREA NITROGEN 34.2 mg/dL (7-18); MAGNESIUM 2.6 mg/dL (1.8-2.4)
[2022-04-16 08:00] LABS: CREATININE 1.1 mg/dL (0.55-1.3)
[2022-04-16] MEDS ORDERED: metoPROLOL SUCCINATE 25 MG TAB.SR.24H (FP) PO ONE (08:49)
[2022-04-16] MEDS ORDERED: DEXAMETHASONE SOD PHOSPHATE 10 MG/1 ML VIAL ONE (08:49)
[2022-04-16] MEDS ORDERED: amLODIPine BESYLATE 5 MG TABLET (FP) ONE (08:49)
[2022-04-16] MEDS ORDERED: PANTOPRAZOLE 20 MG TABLET PO ONE (08:49)
[2022-04-16] MEDS ORDERED: ENOXAPARIN NA (PORCINE) 40 MG/0.4 ML DISP.SYRIN SQ ONE (08:50)
[2022-04-16] MEDS ORDERED: SERTRALINE HCL 50 MG TABLET (FP) ONE (08:50)
[2022-04-16] MEDS: PREGABALIN 100 MG CAPSULE PO SCH (09:09)
[2022-04-16] MEDS: INSULIN SLIDING SCALE (NOVOLOG) 1 VIAL SQ SCH ×3 (09:09→18:02)
[2022-04-16] MEDS: DEXAMETHASONE SOD PHOSPHATE 10 MG/1 ML VIAL IVPUSH SCH (09:09)
[2022-04-16] MEDS: ENOXAPARIN NA (PORCINE) 40 MG/0.4 ML DISP.SYRIN SQ SCH (09:09)
[2022-04-16] MEDS: metoPROLOL SUCCINATE 25 MG TAB.SR.24H (FP) PO SCH (09:10)
[2022-04-16] MEDS: PANTOPRAZOLE 20 MG TABLET PO SCH (09:10)
[2022-04-16] MEDS: SERTRALINE HCL 25 MG TABLET (FP) PO SCH (09:10)
[2022-04-16] MEDS: amLODIPine BESYLATE 5 MG TABLET (FP) PO SCH (09:10)
[2022-04-16] MEDS ORDERED: REMDESIVIR 200 MG in SODIUM CHLORIDE 250 ML IVPB ONE (09:56)
[2022-04-16] MEDS ORDERED: AZITHROMYCIN IVPB 500 MG/250 ML BAG IVPB ONE (15:24)
[2022-04-16] MEDS ORDERED: CEFTRIAXONE 2 GM/100 ML BAG IVPB ONE (15:24)
[2022-04-16] MEDS: CEFTRIAXONE 2 GM in DEXTROSE 5%-WATER 2 GM/100 ML BAG IVPB SCH (15:30)
[2022-04-16 16:19] LABS: LACTIC ACID 2.5 mmol/L (0.4-2.0)
[2022-04-16] MEDS: AZITHROMYCIN IVPB 500 MG/250 ML BAG IVPB SCH (16:30)
[2022-04-16] MEDS ORDERED: ACETAMINOPHEN INJECTION 100 ML IVPB ONE (17:34)
[2022-04-16] MEDS ORDERED: ALBUTEROL SO4 HFA INHALER IH PRN (18:11)
[2022-04-17] MEDS: DOCUSATE SODIUM 100 MG CAPSULE (FP) PO SCH ×2 (00:56→21:38)
[2022-04-17] MEDS: PREGABALIN 100 MG CAPSULE PO SCH ×3 (00:56→21:38)
[2022-04-17] MEDS: ATORVASTATIN CA 80 MG TABLET (FP) PO SCH ×2 (00:57→21:38)
[2022-04-17] MEDS: INSULIN SLIDING SCALE (NOVOLOG) 1 VIAL SQ SCH ×5 (01:00→21:36)
[2022-04-17 09:21] LABS: BASO % 0.1 % (0-2.0); HEMOGLOBIN 11.3 GM/dL (11.7-16.9); LYMPH % 12.8 % (8-40); MCH 31.6 pg (25.7-33.7); MCHC 33.3 g/dl (32.0-35.9); MEAN PLT VOLUME 8.4 fl (7.5-11.1); MONO % 12.2 % (3.8-10.2); NEUT % 74.9 % (42.8-82.8); PLATELET COUNT 208 10^3/uL (134-434); RBC 3.58 M/mm3 (4.00-5.60); RDW 17.2 % (11.9-15.9); WHITE BLOOD COUNT 5.2 K/mm3 (4.0-10.0)
[2022-04-17] MEDS ORDERED: DEXTROSE 5%-WATER 100 ML IVPB ONE (09:21)
[2022-04-17] MEDS: oxyCODONE HCL 5 MG TABLET PO PRN ×2 (09:23→21:38)
[2022-04-17] MEDS: metoPROLOL SUCCINATE 25 MG TAB.SR.24H (FP) PO SCH (09:25)
[2022-04-17] MEDS: PANTOPRAZOLE 20 MG TABLET PO SCH (09:25)
[2022-04-17] MEDS: amLODIPine BESYLATE 5 MG TABLET (FP) PO SCH (09:25)
[2022-04-17] MEDS: SERTRALINE HCL 25 MG TABLET (FP) PO SCH (09:25)
[2022-04-17] MEDS: DEXAMETHASONE SOD PHOSPHATE 10 MG/1 ML VIAL IVPUSH SCH (09:26)
[2022-04-17] MEDS: CEFTRIAXONE 2 GM in DEXTROSE 5%-WATER 2 GM/100 ML BAG IVPB SCH (09:26)
[2022-04-17 09:59] LABS: BLOOD UREA NITROGEN 27.8 mg/dL (7-18); CALCIUM 8.7 mg/dL (8.5-10.1)
[2022-04-17 10:00] LABS: ALBUMIN 3.1 g/dl (3.4-5.0); MAGNESIUM 2.4 mg/dL (1.8-2.4)
[2022-04-17 10:02] LABS: CREATININE 0.8 mg/dL (0.55-1.3)
[2022-04-17 10:04] LABS: BILIRUBIN,TOTAL 0.9 mg/dL (0.2-1); TOT PROT 7.4 g/dl (6.4-8.2)
[2022-04-17] MEDS: REMDESIVIR 100 MG in SODIUM CHLORIDE 250 ML IVPB SCH (10:25)
[2022-04-17] MEDS: ENOXAPARIN NA (PORCINE) 40 MG/0.4 ML DISP.SYRIN SQ SCH (10:25)
[2022-04-17] MEDS: AZITHROMYCIN IVPB 500 MG/250 ML BAG IVPB SCH (11:56)
[2022-04-18] MEDS: INSULIN SLIDING SCALE (NOVOLOG) 1 VIAL SQ SCH ×4 (06:02→21:05)
[2022-04-18] MEDS ORDERED: DEXTROSE 5%-WATER 100 ML IVPB ONE (09:44)
[2022-04-18] MEDS: REMDESIVIR 100 MG in SODIUM CHLORIDE 250 ML IVPB SCH (09:49)
[2022-04-18] MEDS: ENOXAPARIN NA (PORCINE) 40 MG/0.4 ML DISP.SYRIN SQ SCH (09:49)
[2022-04-18] MEDS: SERTRALINE HCL 25 MG TABLET (FP) PO SCH (09:49)
[2022-04-18] MEDS: PANTOPRAZOLE 20 MG TABLET PO SCH (09:50)
[2022-04-18] MEDS: oxyCODONE HCL 5 MG TABLET PO PRN ×2 (09:50→20:37)
[2022-04-18] MEDS: amLODIPine BESYLATE 5 MG TABLET (FP) PO SCH (09:50)
[2022-04-18] MEDS: PREGABALIN 100 MG CAPSULE PO SCH ×2 (09:50→21:05)
[2022-04-18] MEDS: DEXAMETHASONE SOD PHOSPHATE 10 MG/1 ML VIAL IVPUSH SCH (09:51)
[2022-04-18] MEDS: AZITHROMYCIN IVPB 500 MG/250 ML BAG IVPB SCH (11:06)
[2022-04-18 11:09] LABS: BASO % 0.2 % (0-2.0); EOS % 0.2 % (0-4.5); HEMATOCRIT 33.1 % (35.4-49); HEMOGLOBIN 11.1 GM/dL (11.7-16.9); LYMPH % 20.4 % (8-40); MCH 32.2 pg (25.7-33.7); MCHC 33.5 g/dl (32.0-35.9); MEAN CELL VOLUME 96.1 fl (80-96); MEAN PLT VOLUME 8.4 fl (7.5-11.1); MONO % 10.6 % (3.8-10.2); NEUT % 68.6 % (42.8-82.8); PLATELET COUNT 177 10^3/uL (134-434); RBC 3.45 M/mm3 (4.00-5.60); RDW 17.2 % (11.9-15.9)
[2022-04-18 11:40] LABS: ALBUMIN 2.8 g/dl (3.4-5.0); CALCIUM 8.2 mg/dL (8.5-10.1)
[2022-04-18 11:41] LABS: BLOOD UREA NITROGEN 29.1 mg/dL (7-18)
[2022-04-18 11:43] LABS: CREATININE 0.8 mg/dL (0.55-1.3)
[2022-04-18 11:45] LABS: BILIRUBIN,TOTAL 0.6 mg/dL (0.2-1); TOT PROT 6.6 g/dl (6.4-8.2)
[2022-04-18] MEDS: CEFTRIAXONE 2 GM in DEXTROSE 5%-WATER 2 GM/100 ML BAG IVPB SCH (11:59)
[2022-04-18 13:12] LABS: ANISOCYTOSIS 0; MACROCYTOSIS 1+
[2022-04-18] MEDS: ATORVASTATIN CA 80 MG TABLET (FP) PO SCH (21:05)
[2022-04-18] MEDS: DOCUSATE SODIUM 100 MG CAPSULE (FP) PO SCH (21:05)
[2022-04-19] MEDS: INSULIN SLIDING SCALE (NOVOLOG) 1 VIAL SQ SCH ×4 (07:21→22:37)
[2022-04-19] MEDS ORDERED: DEXTROSE 5%-WATER 100 ML IVPB ONE (09:07)
[2022-04-19] MEDS: SERTRALINE HCL 25 MG TABLET (FP) PO SCH (10:00)
[2022-04-19] MEDS: PREGABALIN 100 MG CAPSULE PO SCH ×2 (10:00→22:32)
[2022-04-19] MEDS: amLODIPine BESYLATE 5 MG TABLET (FP) PO SCH (10:00)
[2022-04-19] MEDS: CEFTRIAXONE 2 GM in DEXTROSE 5%-WATER 2 GM/100 ML BAG IVPB SCH (10:00)
[2022-04-19] MEDS: PANTOPRAZOLE 20 MG TABLET PO SCH (10:00)
[2022-04-19] MEDS: ENOXAPARIN NA (PORCINE) 40 MG/0.4 ML DISP.SYRIN SQ SCH (10:02)
[2022-04-19] MEDS: DEXAMETHASONE SOD PHOSPHATE 10 MG/1 ML VIAL IVPUSH SCH (10:02)
[2022-04-19] MEDS: AZITHROMYCIN IVPB 500 MG/250 ML BAG IVPB SCH (10:07)
[2022-04-19] MEDS: REMDESIVIR 100 MG in SODIUM CHLORIDE 250 ML IVPB SCH (11:56)
[2022-04-19 13:37] LABS: BASO % 0.2 % (0-2.0); EOS % 0.3 % (0-4.5); HEMATOCRIT 36.4 % (35.4-49); HEMOGLOBIN 12.1 GM/dL (11.7-16.9); LYMPH % 14.3 % (8-40); MCH 31.7 pg (25.7-33.7); MCHC 33.1 g/dl (32.0-35.9); MEAN CELL VOLUME 95.7 fl (80-96); MEAN PLT VOLUME 8.9 fl (7.5-11.1); MONO % 9.6 % (3.8-10.2); NEUT % 75.6 % (42.8-82.8); PLATELET COUNT 233 10^3/uL (134-434); RDW 16.8 % (11.9-15.9); WHITE BLOOD COUNT 6.6 K/mm3 (4.0-10.0)
[2022-04-19 14:30] LABS: CALCIUM 8.6 mg/dL (8.5-10.1)
[2022-04-19 14:31] LABS: ALBUMIN 2.9 g/dl (3.4-5.0); BLOOD UREA NITROGEN 24.8 mg/dL (7-18)
[2022-04-19 14:33] LABS: CREATININE 0.9 mg/dL (0.55-1.3)
[2022-04-19 14:35] LABS: BILIRUBIN,TOTAL 0.4 mg/dL (0.2-1); TOT PROT 7.5 g/dl (6.4-8.2)
[2022-04-19] MEDS: ACETAMINOPHEN 325 MG TABLET (FP) PO PRN (20:04)
[2022-04-19] MEDS: ATORVASTATIN CA 80 MG TABLET (FP) PO SCH (22:32)
[2022-04-19] MEDS: DOCUSATE SODIUM 100 MG CAPSULE (FP) PO SCH (22:32)
[2022-04-19] MEDS: oxyCODONE HCL 5 MG TABLET PO PRN (23:13)
[2022-04-20] MEDS: INSULIN SLIDING SCALE (NOVOLOG) 1 VIAL SQ SCH ×4 (06:14→21:53)
[2022-04-20] MEDS ORDERED: DEXTROSE 5%-WATER 100 ML IVPB ONE (11:05)
[2022-04-20] MEDS: CEFTRIAXONE 2 GM in DEXTROSE 5%-WATER 2 GM/100 ML BAG IVPB SCH (11:13)
[2022-04-20] MEDS: DEXAMETHASONE SOD PHOSPHATE 10 MG/1 ML VIAL IVPUSH SCH (11:13)
[2022-04-20] MEDS: ENOXAPARIN NA (PORCINE) 40 MG/0.4 ML DISP.SYRIN SQ SCH (11:16)
[2022-04-20] MEDS: PANTOPRAZOLE 20 MG TABLET PO SCH (11:17)
[2022-04-20] MEDS: amLODIPine BESYLATE 5 MG TABLET (FP) PO SCH (11:17)
[2022-04-20] MEDS: SERTRALINE HCL 25 MG TABLET (FP) PO SCH (11:18)
[2022-04-20] MEDS: PREGABALIN 100 MG CAPSULE PO SCH ×2 (11:18→21:53)
[2022-04-20] MEDS: REMDESIVIR 100 MG in SODIUM CHLORIDE 250 ML IVPB SCH (11:19)
[2022-04-20] MEDS: AZITHROMYCIN IVPB 500 MG/250 ML BAG IVPB SCH (11:21)
[2022-04-20] MEDS: oxyCODONE HCL 5 MG TABLET PO PRN (16:02)
[2022-04-20] MEDS: DOCUSATE SODIUM 100 MG CAPSULE (FP) PO SCH (21:52)
[2022-04-20] MEDS: ACETAMINOPHEN 325 MG TABLET (FP) PO PRN (21:53)
[2022-04-20] MEDS: ATORVASTATIN CA 80 MG TABLET (FP) PO SCH (21:53)
[2022-04-21] MEDS: INSULIN SLIDING SCALE (NOVOLOG) 1 VIAL SQ SCH ×4 (06:26→21:58)
[2022-04-21] MEDS: PREGABALIN 100 MG CAPSULE PO SCH ×2 (12:01→21:56)
[2022-04-21] MEDS: SERTRALINE HCL 25 MG TABLET (FP) PO SCH (12:01)
[2022-04-21] MEDS: PANTOPRAZOLE 20 MG TABLET PO SCH (12:02)
[2022-04-21] MEDS: amLODIPine BESYLATE 5 MG TABLET (FP) PO SCH (12:02)
[2022-04-21] MEDS: DEXAMETHASONE SOD PHOSPHATE 10 MG/1 ML VIAL IVPUSH SCH (12:03)
[2022-04-21] MEDS: ENOXAPARIN NA (PORCINE) 40 MG/0.4 ML DISP.SYRIN SQ SCH (12:03)
[2022-04-21] MEDS: AZITHROMYCIN IVPB 500 MG/250 ML BAG IVPB SCH (12:06)
[2022-04-21 12:15] LABS: BASO % 0.2 % (0-2.0); EOS % 0.5 % (0-4.5); HEMATOCRIT 35.9 % (35.4-49); LYMPH % 26.6 % (8-40); MCH 31.8 pg (25.7-33.7); MCHC 33.5 g/dl (32.0-35.9); MEAN CELL VOLUME 94.9 fl (80-96); MEAN PLT VOLUME 9.1 fl (7.5-11.1); MONO % 6.1 % (3.8-10.2); NEUT % 66.6 % (42.8-82.8); PLATELET COUNT 254 10^3/uL (134-434); RBC 3.78 M/mm3 (4.00-5.60); RDW 16.9 % (11.9-15.9); WHITE BLOOD COUNT 9.6 K/mm3 (4.0-10.0)
[2022-04-21] MEDS: oxyCODONE HCL 5 MG TABLET PO PRN ×2 (12:42→21:57)
[2022-04-21 12:43] LABS: ALBUMIN 2.9 g/dl (3.4-5.0); BLOOD UREA NITROGEN 22.2 mg/dL (7-18); MAGNESIUM 2.1 mg/dL (1.8-2.4)
[2022-04-21] MEDS: CEFTRIAXONE 2 GM in DEXTROSE 5%-WATER 2 GM/100 ML BAG IVPB SCH (12:44)
[2022-04-21 12:46] LABS: CREATININE 0.8 mg/dL (0.55-1.3)
[2022-04-21 12:47] LABS: BILIRUBIN,TOTAL 0.5 mg/dL (0.2-1); TOT PROT 7.1 g/dl (6.4-8.2)
[2022-04-21] MEDS: DOCUSATE SODIUM 100 MG CAPSULE (FP) PO SCH (21:56)
[2022-04-21] MEDS: ATORVASTATIN CA 80 MG TABLET (FP) PO SCH (21:56)
[2022-04-22] MEDS: INSULIN SLIDING SCALE (NOVOLOG) 1 VIAL SQ SCH ×2 (06:25→11:50)
[2022-04-22] MEDS ORDERED: AMOX TR/POT CLAV 875MG/125MG TABLETS (FP) PO SCH (08:00)
[2022-04-22] MEDS: amLODIPine BESYLATE 5 MG TABLET (FP) PO SCH (11:49)
[2022-04-22] MEDS: SERTRALINE HCL 25 MG TABLET (FP) PO SCH (11:49)
[2022-04-22] MEDS: PREGABALIN 100 MG CAPSULE PO SCH (11:50)
[2022-04-22] MEDS: PANTOPRAZOLE 20 MG TABLET PO SCH (11:50)
[2022-04-22] MEDS: ENOXAPARIN NA (PORCINE) 40 MG/0.4 ML DISP.SYRIN SQ SCH (11:52)
[2022-04-22] MEDS: DEXAMETHASONE SOD PHOSPHATE 10 MG/1 ML VIAL IVPUSH SCH (11:52)
[2022-04-22 12:21] LABS: BASO % 0.5 % (0-2.0); EOS % 0.3 % (0-4.5); HEMATOCRIT 37.5 % (35.4-49); HEMOGLOBIN 12.3 GM/dL (11.7-16.9); LYMPH % 30.3 % (8-40); MCH 31.4 pg (25.7-33.7); MCHC 32.9 g/dl (32.0-35.9); MEAN CELL VOLUME 95.4 fl (80-96); MEAN PLT VOLUME 8.7 fl (7.5-11.1); MONO % 6.1 % (3.8-10.2); NEUT % 62.8 % (42.8-82.8); PLATELET COUNT 262 10^3/uL (134-434); RBC 3.93 M/mm3 (4.00-5.60); RDW 17.3 % (11.9-15.9); WHITE BLOOD COUNT 9.1 K/mm3 (4.0-10.0)
[2022-04-22 12:41] LABS: BLOOD UREA NITROGEN 19.4 mg/dL (7-18); MAGNESIUM 2.1 mg/dL (1.8-2.4)
[2022-04-22 12:43] LABS: CREATININE 0.8 mg/dL (0.55-1.3)
[2022-04-22 12:45] LABS: TOT PROT 7.4 g/dl (6.4-8.2)
[2022-04-22 12:47] LABS: BILIRUBIN,TOTAL 0.6 mg/dL (0.2-1)
[2022-04-22 14:35] VITALS: BP 101/57; PULSE 91; TEMP 99.4
== END 2022-04-22 16:12 | disposition home health service (06) | DRG 177 ==
LOC: JER 17:17 → JERBED 20:38 → J8W 04-17 00:29
PROVIDERS: ADMIT Hospitalist; ATTEND Nurse Practitioner Family
PROC: XW033E5 Introduction of Remdesivir Anti-infective into Peripheral Vein, Percutaneous Approach, New Technology Group 5 (ICD-10-PCS; principal; 2022-04-16)
PROC: 3E0333Z Introduction of Anti-inflammatory into Peripheral Vein, Percutaneous Approach (ICD-10-PCS; 2022-04-16)
DX: U07.1 COVID-19 (principal); J12.82 Pneumonia due to coronavirus disease 2019; G93.41 Metabolic encephalopathy; J96.01 Acute respiratory failure with hypoxia; N17.9 Acute kidney failure, unspecified; E87.2 Acidosis; I10 Essential (primary) hypertension; E11.649 Type 2 diabetes mellitus with hypoglycemia without coma; G20 Parkinson's disease; K21.9 Gastro-esophageal reflux disease without esophagitis; E78.5 Hyperlipidemia, unspecified; R29.6 Repeated falls; F32.A Depression, unspecified; M21.371 Foot drop, right foot; R41.82 Altered mental status, unspecified; R50.9 Fever, unspecified
CPT/HCPCS: 0241U-QW; 36415; 70450-TC; 71045-TC-FY; 72125-TC; 80048; 80053; 81003; 82550; 82553; 82728; 82803; 82962; 83605; 83615; 83735; 84100; 84484; 85025; 85379; 85610; 85730; 86140; 86850; 86900; 86901; 87040; 87070; 87086; 87186; 87205; 87899; 93005; 93010; 94761; 97116-GP; 97161-GP; 99285-25; C9399; J1100

== ENCOUNTER 2022-06-24 14:16 | Inpatient (IN) | payer OTHER, BC ==
[2022-06-24 14:48] VITALS: BMI 24.1
[2022-06-24] MEDS ORDERED: ACETAMINOPHEN 325 MG TABLET (FP) PO ONE (15:01)
[2022-06-24] MEDS ORDERED: ACETAMINOPHEN 325 MG TABLET (FP) ONE ×2 (15:19→22:04)
[2022-06-24 17:12] LABS: BASO % 0.5 % (0-2.0); HEMATOCRIT 38.2 % (35.4-49); HEMOGLOBIN 12.7 GM/dL (11.7-16.9); LYMPH % 32.4 % (8-40); MCHC 33.2 g/dl (32.0-35.9); MEAN CELL VOLUME 93.3 fl (80-96); NEUT % 54.1 % (42.8-82.8); PLATELET COUNT 244 10^3/uL (134-434); RDW 17.7 % (11.9-15.9); WHITE BLOOD COUNT 5.3 K/mm3 (4.0-10.0)
[2022-06-24 17:31] LABS: ALBUMIN 3.6 g/dl (3.4-5.0); CALCIUM 8.8 mg/dL (8.5-10.1)
[2022-06-24 17:32] LABS: BLOOD UREA NITROGEN 14.2 mg/dL (7-18)
[2022-06-24 17:35] LABS: CREATININE 0.9 mg/dL (0.55-1.3)
[2022-06-24 17:36] LABS: BILIRUBIN,TOTAL 0.5 mg/dL (0.2-1); TOT PROT 7.5 g/dl (6.4-8.2)
[2022-06-24] MEDS ORDERED: POLYETHYLENE GLYCOL (HEALTHYLAX) 3350 17 GM PACKET PO PRN (22:02)
[2022-06-24] MEDS ORDERED: ALBUTEROL SO4 HFA INHALER IH PRN (22:02)
[2022-06-24] MEDS: ACETAMINOPHEN 325 MG TABLET (FP) PO PRN (22:09)
[2022-06-25] MEDS: ACETAMINOPHEN 325 MG TABLET (FP) PO PRN (07:04)
[2022-06-25] MEDS: ENOXAPARIN NA (PORCINE) 40 MG/0.4 ML DISP.SYRIN SQ SCH (10:31)
[2022-06-25] MEDS: LOSARTAN POTASSIUM 50 MG TABLET PO SCH (10:32)
[2022-06-25] MEDS: PREGABALIN 100 MG CAPSULE PO SCH ×2 (10:32→21:37)
[2022-06-25] MEDS: metoPROLOL SUCCINATE 25 MG TAB.SR.24H (FP) PO SCH (10:32)
[2022-06-25] MEDS: SERTRALINE HCL 50 MG TABLET (FP) PO SCH (10:32)
[2022-06-25] MEDS: PANTOPRAZOLE 20 MG TABLET PO SCH (10:32)
[2022-06-25 16:06] LABS: BASO % 1.3 % (0-2.0); EOS % 3.5 % (0-4.5); HEMATOCRIT 37.5 % (35.4-49); HEMOGLOBIN 12.2 GM/dL (11.7-16.9); LYMPH % 42.9 % (8-40); MCH 30.1 pg (25.7-33.7); MCHC 32.6 g/dl (32.0-35.9); MEAN CELL VOLUME 92.3 fl (80-96); MONO % 9.1 % (3.8-10.2); NEUT % 43.2 % (42.8-82.8); PLATELET COUNT 237 10^3/uL (134-434); RBC 4.07 M/mm3 (4.00-5.60); RDW 17.4 % (11.9-15.9); WHITE BLOOD COUNT 4.4 K/mm3 (4.0-10.0)
[2022-06-25 16:25] LABS: CALCIUM 8.6 mg/dL (8.5-10.1)
[2022-06-25 16:29] LABS: CREATININE 0.9 mg/dL (0.55-1.3)
[2022-06-25] MEDS: DOCUSATE SODIUM 100 MG CAPSULE (FP) PO SCH (21:37)
[2022-06-25] MEDS: ATORVASTATIN CA 80 MG TABLET (FP) PO SCH (21:37)
[2022-06-25] MEDS: MELATONIN 5 MG TABLETS PO PRN (22:52)
[2022-06-26] MEDS: metoPROLOL SUCCINATE 25 MG TAB.SR.24H (FP) PO SCH (09:18)
[2022-06-26] MEDS: SERTRALINE HCL 50 MG TABLET (FP) PO SCH (09:18)
[2022-06-26] MEDS: PANTOPRAZOLE 20 MG TABLET PO SCH (09:18)
[2022-06-26] MEDS: PREGABALIN 100 MG CAPSULE PO SCH ×2 (09:18→21:33)
[2022-06-26] MEDS: LOSARTAN POTASSIUM 50 MG TABLET PO SCH (09:18)
[2022-06-26] MEDS: ENOXAPARIN NA (PORCINE) 40 MG/0.4 ML DISP.SYRIN SQ SCH (09:19)
[2022-06-26] MEDS: DOCUSATE SODIUM 100 MG CAPSULE (FP) PO SCH (21:33)
[2022-06-26] MEDS: MELATONIN 5 MG TABLETS PO PRN (21:33)
[2022-06-26] MEDS: ATORVASTATIN CA 80 MG TABLET (FP) PO SCH (21:33)
[2022-06-27] MEDS: ENOXAPARIN NA (PORCINE) 40 MG/0.4 ML DISP.SYRIN SQ SCH (09:41)
[2022-06-27] MEDS: SERTRALINE HCL 50 MG TABLET (FP) PO SCH (09:41)
[2022-06-27] MEDS: PANTOPRAZOLE 20 MG TABLET PO SCH (09:41)
[2022-06-27] MEDS: LOSARTAN POTASSIUM 50 MG TABLET PO SCH (09:42)
[2022-06-27] MEDS: PREGABALIN 100 MG CAPSULE PO SCH ×2 (09:42→21:26)
[2022-06-27] MEDS: metoPROLOL SUCCINATE 25 MG TAB.SR.24H (FP) PO SCH (09:42)
[2022-06-27] MEDS: oxyCODONE HCL 5 MG TABLET PO PRN (18:06)
[2022-06-27] MEDS: MELATONIN 5 MG TABLETS PO PRN (21:26)
[2022-06-27] MEDS: DOCUSATE SODIUM 100 MG CAPSULE (FP) PO SCH (21:26)
[2022-06-27] MEDS: ATORVASTATIN CA 80 MG TABLET (FP) PO SCH (21:26)
[2022-06-28] MEDS: oxyCODONE HCL 5 MG TABLET PO PRN ×2 (01:14→19:36)
[2022-06-28] MEDS: PANTOPRAZOLE 20 MG TABLET PO SCH (10:37)
[2022-06-28] MEDS: PREGABALIN 100 MG CAPSULE PO SCH ×2 (10:37→21:39)
[2022-06-28] MEDS: metoPROLOL SUCCINATE 25 MG TAB.SR.24H (FP) PO SCH (10:37)
[2022-06-28] MEDS: SERTRALINE HCL 50 MG TABLET (FP) PO SCH (10:38)
[2022-06-28] MEDS: LOSARTAN POTASSIUM 50 MG TABLET PO SCH (10:38)
[2022-06-28] MEDS: ENOXAPARIN NA (PORCINE) 40 MG/0.4 ML DISP.SYRIN SQ SCH (17:24)
[2022-06-28] MEDS: MELATONIN 5 MG TABLETS PO PRN (21:39)
[2022-06-28] MEDS: ATORVASTATIN CA 80 MG TABLET (FP) PO SCH (21:39)
[2022-06-28] MEDS: DOCUSATE SODIUM 100 MG CAPSULE (FP) PO SCH (21:45)
[2022-06-29] MEDS: SERTRALINE HCL 50 MG TABLET (FP) PO SCH (10:05)
[2022-06-29] MEDS: metoPROLOL SUCCINATE 25 MG TAB.SR.24H (FP) PO SCH (10:05)
[2022-06-29] MEDS: PANTOPRAZOLE 20 MG TABLET PO SCH (10:05)
[2022-06-29] MEDS: LOSARTAN POTASSIUM 50 MG TABLET PO SCH (10:05)
[2022-06-29] MEDS: PREGABALIN 100 MG CAPSULE PO SCH ×2 (10:06→21:16)
[2022-06-29] MEDS: ENOXAPARIN NA (PORCINE) 40 MG/0.4 ML DISP.SYRIN SQ SCH (10:06)
[2022-06-29] MEDS: oxyCODONE HCL 5 MG TABLET PO PRN (19:23)
[2022-06-29] MEDS: DOCUSATE SODIUM 100 MG CAPSULE (FP) PO SCH (21:16)
[2022-06-29] MEDS: MELATONIN 5 MG TABLETS PO PRN (21:17)
[2022-06-29] MEDS: ATORVASTATIN CA 80 MG TABLET (FP) PO SCH (21:17)
[2022-06-30] MEDS: SERTRALINE HCL 50 MG TABLET (FP) PO SCH (09:50)
[2022-06-30] MEDS: metoPROLOL SUCCINATE 25 MG TAB.SR.24H (FP) PO SCH (09:50)
[2022-06-30] MEDS: LOSARTAN POTASSIUM 50 MG TABLET PO SCH (09:50)
[2022-06-30] MEDS: PANTOPRAZOLE 20 MG TABLET PO SCH (09:51)
[2022-06-30] MEDS: ENOXAPARIN NA (PORCINE) 40 MG/0.4 ML DISP.SYRIN SQ SCH (09:51)
[2022-06-30] MEDS: PREGABALIN 100 MG CAPSULE PO SCH ×2 (09:51→21:38)
[2022-06-30 13:20] LABS: BASO % 0.5 % (0-2.0); EOS % 4.2 % (0-4.5); HEMATOCRIT 36.7 % (35.4-49); HEMOGLOBIN 11.9 GM/dL (11.7-16.9); LYMPH % 35.9 % (8-40); MCH 29.9 pg (25.7-33.7); MCHC 32.3 g/dl (32.0-35.9); MEAN CELL VOLUME 92.5 fl (80-96); MEAN PLT VOLUME 7.8 fl (7.5-11.1); MONO % 9.2 % (3.8-10.2); NEUT % 50.2 % (42.8-82.8); PLATELET COUNT 206 10^3/uL (134-434); RBC 3.97 M/mm3 (4.00-5.60); RDW 17.4 % (11.9-15.9); WHITE BLOOD COUNT 5.1 K/mm3 (4.0-10.0)
[2022-06-30 13:27] LABS: INR 1.12 (0.83-1.09); PROTHROMBIN TIME (PATIENT) 12.9 SEC (9.7-13.0)
[2022-06-30 14:01] LABS: ALBUMIN 3.2 g/dl (3.4-5.0); BLOOD UREA NITROGEN 13.3 mg/dL (7-18); CALCIUM 8.9 mg/dL (8.5-10.1)
[2022-06-30 14:04] LABS: CREATININE 0.6 mg/dL (0.55-1.3)
[2022-06-30 14:06] LABS: BILIRUBIN,TOTAL 0.5 mg/dL (0.2-1); TOT PROT 6.8 g/dl (6.4-8.2)
[2022-06-30] MEDS: DOCUSATE SODIUM 100 MG CAPSULE (FP) PO SCH (21:38)
[2022-06-30] MEDS: ATORVASTATIN CA 80 MG TABLET (FP) PO SCH (21:38)
[2022-07-01] MEDS: LOSARTAN POTASSIUM 50 MG TABLET PO SCH (09:37)
[2022-07-01] MEDS: SERTRALINE HCL 50 MG TABLET (FP) PO SCH (09:37)
[2022-07-01] MEDS: PREGABALIN 100 MG CAPSULE PO SCH ×2 (09:37→21:37)
[2022-07-01] MEDS: metoPROLOL SUCCINATE 25 MG TAB.SR.24H (FP) PO SCH (09:37)
[2022-07-01] MEDS: PANTOPRAZOLE 20 MG TABLET PO SCH (09:38)
[2022-07-01] MEDS: ENOXAPARIN NA (PORCINE) 40 MG/0.4 ML DISP.SYRIN SQ SCH (09:38)
[2022-07-01] MEDS: ACETAMINOPHEN 325 MG TABLET (FP) PO PRN (11:39)
[2022-07-01] MEDS: MELATONIN 5 MG TABLETS PO PRN (21:37)
[2022-07-01] MEDS: DOCUSATE SODIUM 100 MG CAPSULE (FP) PO SCH (21:37)
[2022-07-01] MEDS: ATORVASTATIN CA 80 MG TABLET (FP) PO SCH (21:37)
[2022-07-02] MEDS: SERTRALINE HCL 50 MG TABLET (FP) PO SCH (09:58)
[2022-07-02] MEDS: LOSARTAN POTASSIUM 50 MG TABLET PO SCH (09:58)
[2022-07-02] MEDS: metoPROLOL SUCCINATE 25 MG TAB.SR.24H (FP) PO SCH (09:58)
[2022-07-02] MEDS: PANTOPRAZOLE 20 MG TABLET PO SCH (09:58)
[2022-07-02] MEDS: ACETAMINOPHEN 325 MG TABLET (FP) PO PRN (20:00)
[2022-07-02] MEDS ORDERED: CHLORHEXIDINE GLUCONATE 4% CLEANSER FOR DECOLONIZATION TP SCH (22:00)
[2022-07-02] MEDS: ATORVASTATIN CA 80 MG TABLET (FP) PO SCH (22:35)
[2022-07-02] MEDS: DOCUSATE SODIUM 100 MG CAPSULE (FP) PO SCH (22:35)
[2022-07-02] MEDS ORDERED: oxyCODONE HCL 5 MG TABLET PO ONE (23:19)
[2022-07-02] MEDS ORDERED: oxyCODONE HCL 5 MG TABLET ONE (23:26)
[2022-07-02] MEDS: MELATONIN 5 MG TABLETS PO PRN (23:39)
[2022-07-03] MEDS: metoPROLOL SUCCINATE 25 MG TAB.SR.24H (FP) PO SCH (10:52)
[2022-07-03] MEDS: ACETAMINOPHEN 325 MG TABLET (FP) PO PRN (10:52)
[2022-07-03] MEDS: SERTRALINE HCL 50 MG TABLET (FP) PO SCH (10:53)
[2022-07-03] MEDS: PANTOPRAZOLE 20 MG TABLET PO SCH (10:53)
[2022-07-03] MEDS: LOSARTAN POTASSIUM 50 MG TABLET PO SCH (10:53)
[2022-07-03] MEDS ORDERED: ONDANSETRON 4 MG/2 ML VIAL IVPUSH PRN ×5 (13:19→19:26)
[2022-07-03] MEDS ORDERED: VANCOMYCIN 1,000 MG VIAL (RESTRICTED TO ID ONLY) ONE (13:25)
[2022-07-03] MEDS ORDERED: BACITRACIN 15 GM TUBE TOPICAL OINTMENT ONE (13:25)
[2022-07-03] MEDS ORDERED: LIDOCAINE HCL 1% EPINEPHRINE 1:200,000 30 ML VIAL (PF) ONE (13:25)
[2022-07-03] MEDS ORDERED: GENTAMICIN SO4 80 MG/2 ML VIAL ONE (13:25)
[2022-07-03] MEDS ORDERED: THROMBIN (BOVINE) 5,000 UNIT VIAL TP ONE ×2 (13:26→13:27)
[2022-07-03] MEDS ORDERED: BUPIVACAINE HCL 200 ML ONE (13:26)
[2022-07-03] MEDS ORDERED: LIDOCAINE 1%/EPI 1:100000 (20 ML MULTI DOSE VIAL) ONE (13:26)
[2022-07-03] MEDS ORDERED: BUPIVACAINE LIPOSOME/PF (EXPAREL) 266 MG/20 ML VIAL ONE (13:28)
[2022-07-03] MEDS ORDERED: LACTATED RINGERS SOLUTION 1,000 ML IV SCH ×2 (13:30→16:15)
[2022-07-03] MEDS ORDERED: ACETAMINOPHEN INJECTION 100 ML IVPB ONE (13:33)
[2022-07-03] MEDS ORDERED: ROCURONIUM BROMIDE 50 MG/5 ML SYRINGE ONE ×2 (13:37→14:57)
[2022-07-03] MEDS ORDERED: ceFAZolin SODIUM 1 GM VIAL IVPB ONE (14:02)
[2022-07-03] MEDS ORDERED: VANCOMYCIN 1,000 MG VIAL (RESTRICTED TO ID ONLY) IVPB ONE ×2 (14:02→17:18)
[2022-07-03] MEDS ORDERED: TRANEXAMIC ACID 1000 MG/10 ML VIAL ONE (14:06)
[2022-07-03] MEDS ORDERED: THROMBIN (BOVINE) 20,000 UNIT VIAL TP ONE (14:25)
[2022-07-03] MEDS ORDERED: GENTAMICIN SO4 80 MG/2 ML VIAL IVPB ONE (14:26)
[2022-07-03] MEDS ORDERED: LIDOCAINE 1%/EPI 1:100000 (20 ML MULTI DOSE VIAL) IJ ONE (14:31)
[2022-07-03] MEDS ORDERED: PHENYLEPHRINE HCL 10 MG/1 ML SINGLE DOSE VIAL ONE (14:33)
[2022-07-03] MEDS ORDERED: HYDROGEN PEROXIDE 473 ML PO ONE (14:39)
[2022-07-03] MEDS ORDERED: ONDANSETRON 4 MG/2 ML VIAL ONE ×2 (15:11→17:06)
[2022-07-03] MEDS ORDERED: HYDROmorphone HCl 2 MG/ML VIAL ONE (15:23)
[2022-07-03] MEDS ORDERED: PROMETHAZINE HCL 25 MG/1 ML VIAL IVPB PRN ×2 (16:09→19:26)
[2022-07-03] MEDS ORDERED: PROMETHAZINE HCL 25 MG/1 ML VIAL IVPUSH PRN ×2 (16:09→19:26)
[2022-07-03] MEDS ORDERED: DEXAMETHASONE SOD PHOSPHATE 4 MG/1 ML VIAL IVPUSH PRN ×2 (16:09→19:26)
[2022-07-03] MEDS ORDERED: HYDROmorphone *PCA* 10MG/50ML DISP.SYRIN PCA SCH (16:15)
[2022-07-03] MEDS ORDERED: DEXAMETHASONE SOD PHOSPHATE 4 MG/1 ML VIAL ONE (17:06)
[2022-07-03] MEDS ORDERED: BUPIVACAINE LIPOSOME/PF (EXPAREL) 266 MG/20 ML VIAL NR ONE (17:48)
[2022-07-03] MEDS ORDERED: BUPIVACAINE HCL/PF 0.5% (5 MG/ML) 30 ML VIAL IJ ONE (17:48)
[2022-07-03] MEDS ORDERED: METOPROLOL TARTRATE 5 MG/5 ML VIAL ONE (18:01)
[2022-07-03] MEDS ORDERED: PROMETHAZINE HCL 25 MG/1 ML VIAL ONE (18:18)
[2022-07-03] MEDS ORDERED: PROMETHAZINE HCL 25 MG/1 ML VIAL IVPUSH ONE (18:20)
[2022-07-03] MEDS ORDERED: HYDROmorphone *PCA* 10MG/50ML DISP.SYRIN ONE (18:28)
[2022-07-03] MEDS ORDERED: ALBUTEROL SO4 HFA INHALER IH PRN (19:26)
[2022-07-03] MEDS ORDERED: POLYETHYLENE GLYCOL (HEALTHYLAX) 3350 17 GM PACKET PO PRN (19:26)
[2022-07-03] MEDS: DOCUSATE SODIUM 100 MG CAPSULE (FP) PO SCH (22:30)
[2022-07-03] MEDS: ATORVASTATIN CA 80 MG TABLET (FP) PO SCH (22:30)
[2022-07-03] MEDS: CEFAZOLIN 1 GM in DEXTROSE 5%-WATER - 50 ML IVPB SCH (22:30)
[2022-07-04] MEDS: ACETAMINOPHEN 1000 MG/100 ML BAG IVPB SCH ×3 (02:50→13:25)
[2022-07-04] MEDS: CEFAZOLIN 1 GM in DEXTROSE 5%-WATER - 50 ML IVPB SCH ×3 (06:24→23:32)
[2022-07-04 07:31] LABS: HEMATOCRIT 34.4 % (35.4-49); HEMOGLOBIN 11.1 GM/dL (11.7-16.9); MCH 30.2 pg (25.7-33.7); MCHC 32.4 g/dl (32.0-35.9); MEAN CELL VOLUME 93.3 fl (80-96); MEAN PLT VOLUME 8.2 fl (7.5-11.1); PLATELET COUNT 169 10^3/uL (134-434); RBC 3.68 M/mm3 (4.00-5.60); RDW 17.2 % (11.9-15.9)
[2022-07-04 07:56] LABS: CALCIUM 8.7 mg/dL (8.5-10.1)
[2022-07-04 07:57] LABS: BLOOD UREA NITROGEN 13.2 mg/dL (7-18)
[2022-07-04 08:00] LABS: CREATININE 0.7 mg/dL (0.55-1.3)
[2022-07-04] MEDS: LOSARTAN POTASSIUM 50 MG TABLET PO SCH (09:40)
[2022-07-04] MEDS: metoPROLOL SUCCINATE 25 MG TAB.SR.24H (FP) PO SCH (09:41)
[2022-07-04] MEDS: FOLIC ACID 1 MG TABLET (FP) PO SCH (09:41)
[2022-07-04] MEDS: SERTRALINE HCL 25 MG TABLET (FP) PO SCH (09:41)
[2022-07-04] MEDS: PANTOPRAZOLE 20 MG TABLET PO SCH (09:41)
[2022-07-04] MEDS: HEPARIN NA (PORCINE) 5,000 UNITS/ML 1ML VIAL SQ SCH ×2 (13:24→23:33)
[2022-07-04] MEDS: ATORVASTATIN CA 80 MG TABLET (FP) PO SCH (23:34)
[2022-07-04] MEDS: DOCUSATE SODIUM 100 MG CAPSULE (FP) PO SCH (23:34)
[2022-07-04] MEDS: MELATONIN 5 MG TABLETS PO PRN (23:35)
[2022-07-05] MEDS ORDERED: ceFAZolin SODIUM 1 GM VIAL ONE (05:53)
[2022-07-05] MEDS: HEPARIN NA (PORCINE) 5,000 UNITS/ML 1ML VIAL SQ SCH ×3 (06:32→21:40)
[2022-07-05] MEDS: CEFAZOLIN 1 GM in DEXTROSE 5%-WATER - 50 ML IVPB SCH ×3 (06:32→21:40)
[2022-07-05 08:12] LABS: BASO % 0.3 % (0-2.0); EOS % 0.7 % (0-4.5); HEMATOCRIT 31.3 % (35.4-49); HEMOGLOBIN 10.6 GM/dL (11.7-16.9); LYMPH % 12.6 % (8-40); MCH 31.6 pg (25.7-33.7); MCHC 33.7 g/dl (32.0-35.9); MEAN CELL VOLUME 93.7 fl (80-96); MEAN PLT VOLUME 7.8 fl (7.5-11.1); MONO % 11.4 % (3.8-10.2); PLATELET COUNT 137 10^3/uL (134-434); RBC 3.35 M/mm3 (4.00-5.60); RDW 17.6 % (11.9-15.9); WHITE BLOOD COUNT 8.2 K/mm3 (4.0-10.0)
[2022-07-05 09:06] LABS: BILIRUBIN,TOTAL 0.7 mg/dL (0.2-1); CALCIUM 8.5 mg/dL (8.5-10.1); CREATININE 0.8 mg/dL (0.55-1.3); TOT PROT 6.6 g/dl (6.4-8.2)
[2022-07-05] MEDS: metoPROLOL SUCCINATE 25 MG TAB.SR.24H (FP) PO SCH (09:19)
[2022-07-05] MEDS: LOSARTAN POTASSIUM 50 MG TABLET PO SCH (09:19)
[2022-07-05] MEDS: SERTRALINE HCL 25 MG TABLET (FP) PO SCH (09:19)
[2022-07-05] MEDS: PANTOPRAZOLE 20 MG TABLET PO SCH (09:19)
[2022-07-05] MEDS: FOLIC ACID 1 MG TABLET (FP) PO SCH (09:20)
[2022-07-05] MEDS: ATORVASTATIN CA 80 MG TABLET (FP) PO SCH (21:40)
[2022-07-05] MEDS: DOCUSATE SODIUM 100 MG CAPSULE (FP) PO SCH (21:40)
[2022-07-06] MEDS: HYDROmorphone *PCA* 10MG/50ML DISP.SYRIN PCA SCH ×2 (03:23→19:30)
[2022-07-06] MEDS ORDERED: ceFAZolin SODIUM 1 GM VIAL ONE ×3 (06:28→22:19)
[2022-07-06] MEDS: CEFAZOLIN 1 GM in DEXTROSE 5%-WATER - 50 ML IVPB SCH ×3 (06:43→22:30)
[2022-07-06] MEDS: HEPARIN NA (PORCINE) 5,000 UNITS/ML 1ML VIAL SQ SCH ×3 (06:44→22:30)
[2022-07-06 07:59] LABS: BASO % 0.2 % (0-2.0); EOS % 1.3 % (0-4.5); HEMATOCRIT 29.5 % (35.4-49); HEMOGLOBIN 9.8 GM/dL (11.7-16.9); LYMPH % 20.1 % (8-40); MCH 31.3 pg (25.7-33.7); MCHC 33.4 g/dl (32.0-35.9); MEAN CELL VOLUME 93.7 fl (80-96); MEAN PLT VOLUME 8.4 fl (7.5-11.1); MONO % 8.2 % (3.8-10.2); NEUT % 70.2 % (42.8-82.8); PLATELET COUNT 137 10^3/uL (134-434); RBC 3.14 M/mm3 (4.00-5.60); RDW 17.6 % (11.9-15.9); WHITE BLOOD COUNT 7.6 K/mm3 (4.0-10.0)
[2022-07-06 08:42] LABS: CALCIUM 8.5 mg/dL (8.5-10.1)
[2022-07-06 08:43] LABS: ALBUMIN 2.8 g/dl (3.4-5.0); CREATININE 0.7 mg/dL (0.55-1.3)
[2022-07-06 08:44] LABS: BILIRUBIN,TOTAL 1.2 mg/dL (0.2-1); TOT PROT 6.3 g/dl (6.4-8.2)
[2022-07-06] MEDS: FOLIC ACID 1 MG TABLET (FP) PO SCH (09:44)
[2022-07-06] MEDS: PANTOPRAZOLE 20 MG TABLET PO SCH (09:44)
[2022-07-06] MEDS: LOSARTAN POTASSIUM 50 MG TABLET PO SCH (09:44)
[2022-07-06] MEDS: SERTRALINE HCL 25 MG TABLET (FP) PO SCH (09:44)
[2022-07-06] MEDS: metoPROLOL SUCCINATE 25 MG TAB.SR.24H (FP) PO SCH (09:44)
[2022-07-06] MEDS: ACETAMINOPHEN 325 MG TABLET (FP) PO PRN (13:04)
[2022-07-06] MEDS: DOCUSATE SODIUM 100 MG CAPSULE (FP) PO SCH (22:30)
[2022-07-06] MEDS: ATORVASTATIN CA 80 MG TABLET (FP) PO SCH (22:30)
[2022-07-06] MEDS: MELATONIN 5 MG TABLETS PO PRN (22:30)
[2022-07-07] MEDS: ACETAMINOPHEN 325 MG TABLET (FP) PO PRN ×2 (01:06→17:26)
[2022-07-07] MEDS: HEPARIN NA (PORCINE) 5,000 UNITS/ML 1ML VIAL SQ SCH ×3 (06:41→21:49)
[2022-07-07] MEDS: CEFAZOLIN 1 GM in DEXTROSE 5%-WATER - 50 ML IVPB SCH ×2 (06:41→14:19)
[2022-07-07 09:02] LABS: BASO % 0.4 % (0-2.0); EOS % 3.5 % (0-4.5); HEMATOCRIT 29.2 % (35.4-49); HEMOGLOBIN 9.5 GM/dL (11.7-16.9); LYMPH % 17.9 % (8-40); MCH 30.2 pg (25.7-33.7); MCHC 32.5 g/dl (32.0-35.9); MEAN PLT VOLUME 8.6 fl (7.5-11.1); MONO % 6.9 % (3.8-10.2); NEUT % 71.3 % (42.8-82.8); PLATELET COUNT 151 10^3/uL (134-434); RBC 3.14 M/mm3 (4.00-5.60); WHITE BLOOD COUNT 5.5 K/mm3 (4.0-10.0)
[2022-07-07 09:24] LABS: ALBUMIN 2.6 g/dl (3.4-5.0); CALCIUM 8.6 mg/dL (8.5-10.1)
[2022-07-07 09:25] LABS: BLOOD UREA NITROGEN 17.2 mg/dL (7-18)
[2022-07-07 09:27] LABS: CREATININE 0.7 mg/dL (0.55-1.3)
[2022-07-07 09:29] LABS: TOT PROT 6.2 g/dl (6.4-8.2)
[2022-07-07] MEDS: metoPROLOL SUCCINATE 25 MG TAB.SR.24H (FP) PO SCH (10:19)
[2022-07-07] MEDS: SERTRALINE HCL 25 MG TABLET (FP) PO SCH (10:19)
[2022-07-07] MEDS: LOSARTAN POTASSIUM 50 MG TABLET PO SCH (10:20)
[2022-07-07] MEDS: FOLIC ACID 1 MG TABLET (FP) PO SCH (10:20)
[2022-07-07] MEDS: PANTOPRAZOLE 20 MG TABLET PO SCH (10:20)
[2022-07-07] MEDS: oxyCODONE HCL 5 MG TABLET PO PRN ×2 (17:26→21:50)
[2022-07-07] MEDS ORDERED: diphenhydrAMINE HCL 25 MG CAPSULE (FP) PO PRN (18:56)
[2022-07-07] MEDS ORDERED: ONDANSETRON 4 MG/2 ML VIAL IVPUSH PRN (18:56)
[2022-07-07] MEDS ORDERED: oxyCODONE HCL 5 MG TABLET PO PRN ×2 (18:56)
[2022-07-07] MEDS ORDERED: morphine CARPU-JECT 4 MG/1 ML DISP.SYRIN IVPUSH PRN (18:56)
[2022-07-07] MEDS ORDERED: LACTATED RINGERS SOLUTION 1,000 ML/1,000 ML INFUS.BAG IV SCH (19:00)
[2022-07-07] MEDS ORDERED: HEPARIN NA (PORCINE) 5,000 UNITS/ML 1ML VIAL SQ SCH (19:00)
[2022-07-07 20:01] LABS: EPI CELLS >36 /uL (0-25.1); HYALINE CASTS 7 /uL (0-3.1); URINE APPEARANCE CLOUDY; URINE BACTERIA 38 /uL (0-1359); URINE BILIRUBIN NEGATIVE (NEGATIVE); URINE COLOR ORANGE; URINE GLUCOSE (UA) 2+ (NEGATIVE); URINE KETONE TRACE (NEGATIVE); URINE LEUK ESTERASE 1+ (NEGATIVE); URINE NITRITE NEGATIVE (NEGATIVE); URINE PROTEIN 3+ (NEGATIVE); URINE RBC 5305 /uL (0-23.9); URINE WBC 86 /uL (0-25.8)
[2022-07-07] MEDS: MELATONIN 5 MG TABLETS PO PRN (21:49)
[2022-07-07] MEDS: ATORVASTATIN CA 80 MG TABLET (FP) PO SCH (21:49)
[2022-07-07] MEDS: DOCUSATE SODIUM 100 MG CAPSULE (FP) PO SCH (21:49)
[2022-07-07] MEDS ORDERED: DOCUSATE SODIUM 100 MG CAPSULE (FP) PO SCH (22:00)
[2022-07-08] MEDS ORDERED: CEFAZOLIN 1 GM/D5W 1 GM/50 ML BAG IVPB SCH (02:00)
[2022-07-08] MEDS: HEPARIN NA (PORCINE) 5,000 UNITS/ML 1ML VIAL SQ SCH ×3 (06:02→21:08)
[2022-07-08] MEDS: oxyCODONE HCL 5 MG TABLET PO PRN ×4 (06:03→21:07)
[2022-07-08] MEDS: ACETAMINOPHEN 325 MG TABLET (FP) PO PRN ×2 (07:25→16:33)
[2022-07-08] MEDS: LOSARTAN POTASSIUM 50 MG TABLET PO SCH (09:21)
[2022-07-08] MEDS: metoPROLOL SUCCINATE 25 MG TAB.SR.24H (FP) PO SCH (09:22)
[2022-07-08] MEDS: PANTOPRAZOLE 20 MG TABLET PO SCH (09:22)
[2022-07-08] MEDS: SERTRALINE HCL 25 MG TABLET (FP) PO SCH (09:22)
[2022-07-08] MEDS: FOLIC ACID 1 MG TABLET (FP) PO SCH (09:23)
[2022-07-08] MEDS ORDERED: FERROUS SO4 325 MG TABLET (FP) PO SCH (10:00)
[2022-07-08] MEDS: ATORVASTATIN CA 80 MG TABLET (FP) PO SCH (21:06)
[2022-07-08] MEDS: MELATONIN 5 MG TABLETS PO PRN (21:07)
[2022-07-08] MEDS: DOCUSATE SODIUM 100 MG CAPSULE (FP) PO SCH (21:07)
[2022-07-09] MEDS: oxyCODONE HCL 5 MG TABLET PO PRN ×2 (02:41→09:48)
[2022-07-09] MEDS: ACETAMINOPHEN 325 MG TABLET (FP) PO PRN (02:42)
[2022-07-09] MEDS: HEPARIN NA (PORCINE) 5,000 UNITS/ML 1ML VIAL SQ SCH (06:25)
[2022-07-09] MEDS: PANTOPRAZOLE 20 MG TABLET PO SCH (09:47)
[2022-07-09] MEDS: metoPROLOL SUCCINATE 25 MG TAB.SR.24H (FP) PO SCH (09:47)
[2022-07-09] MEDS: SERTRALINE HCL 25 MG TABLET (FP) PO SCH (09:47)
[2022-07-09] MEDS: LOSARTAN POTASSIUM 50 MG TABLET PO SCH (09:47)
[2022-07-09] MEDS: FOLIC ACID 1 MG TABLET (FP) PO SCH (09:48)
[2022-07-09 12:39] VITALS: BP 141/79; PULSE 93; RESP 18; TEMP 99.2
== END 2022-07-09 12:48 | DRG 455 ==
LOC: JER 14:16 → JERBED 17:51 → UNDOADMOB 17:51 → JERBED 06-25 01:30 → J4W 06-25 01:30 → INTOOBSV 06-29 10:08 → OBSVTOIN 06-29 10:08 → JERBED 06-29 10:08
PROVIDERS: ADMIT Hospitalist; ATTEND Family Medicine
PROC: 0SG1071 Fusion of 2 or more Lumbar Vertebral Joints with Autologous Tissue Substitute, Posterior Approach, Posterior Column, Open Approach (ICD-10-PCS; 2022-07-03)
PROC: 0QB00ZZ Excision of Lumbar Vertebra, Open Approach (ICD-10-PCS; 2022-07-03)
PROC: 01NB0ZZ Release Lumbar Nerve, Open Approach (ICD-10-PCS; 2022-07-03)
PROC: 0SG3071 Fusion of Lumbosacral Joint with Autologous Tissue Substitute, Posterior Approach, Posterior Column, Open Approach (ICD-10-PCS; 2022-07-03)
PROC: 4A1004G Monitoring of Central Nervous Electrical Activity, Intraoperative, Open Approach (ICD-10-PCS; 2022-07-03)
PROC: 0SG00AJ Fusion of Lumbar Vertebral Joint with Interbody Fusion Device, Posterior Approach, Anterior Column, Open Approach (ICD-10-PCS; principal; 2022-07-03 12:00)
DX: M48.061 Spinal stenosis, lumbar region without neurogenic claudication (principal); M47.896 Other spondylosis, lumbar region; M54.16 Radiculopathy, lumbar region; R29.6 Repeated falls; G20 Parkinson's disease; M21.371 Foot drop, right foot; D64.9 Anemia, unspecified; E11.9 Type 2 diabetes mellitus without complications; R55 Syncope and collapse; I10 Essential (primary) hypertension; E78.5 Hyperlipidemia, unspecified; K21.9 Gastro-esophageal reflux disease without esophagitis
CPT/HCPCS: 36415; 70450-TC; 71045-TC-FY; 72070-TC-FY; 72125-TC; 72131-TC; 72158-TC; 72170-TC-FY; 72192-TC; 73502-TC-RT-FY; 80048; 80053; 80061; 81003; 83036; 84443; 84484; 85025; 85027; 85610; 86922; 87040; 87086; 93005; 93010; 94760; 95860-TC; 97116-GP; 97162-GP; 97163-GP; 99285-25; A9579; C1889; C9803-CS; J1644; U0003; U0005

== ENCOUNTER 2024-04-20 11:08 | Inpatient (IN) | payer OTHER, BC ==
[2024-04-20 12:13] LABS: BASO % 0.3 % (0-2.0); EOS % 4.8 % (0-4.5); HEMATOCRIT 31.8 % (35.4-49); HEMOGLOBIN 10.3 GM/dL (11.7-16.9); LYMPH % 44.8 % (8-40); MCH 31.2 pg (25.7-33.7); MCHC 32.3 g/dl (32.0-35.9); MEAN CELL VOLUME 96.6 fl (80-96); MEAN PLT VOLUME 8.6 fl (7.5-11.1); MONO % 9.2 % (3.8-10.2); NEUT % 40.9 % (42.8-82.8); PLATELET COUNT 156 10^3/uL (134-434); RDW 18.8 % (11.9-15.9); WHITE BLOOD COUNT 4.3 K/mm3 (4.0-10.0)
[2024-04-20 12:44] LABS: POTASSIUM 3.8 mmol/L (3.5-5.1)
[2024-04-20 12:46] LABS: ALBUMIN 2.9 g/dl (3.4-5.0)
[2024-04-20 12:48] LABS: CALCIUM 8.3 mg/dL (8.5-10.1)
[2024-04-20 12:49] LABS: CREATININE 0.8 mg/dL (0.55-1.3)
[2024-04-20 12:51] LABS: BILIRUBIN,TOTAL 0.5 mg/dL (0.2-1); TOT PROT 6.3 g/dl (6.4-8.2)
[2024-04-20] MEDS ORDERED: NALOXONE HCL 0.4 MG/ML VIAL ONE (13:26)
[2024-04-20 13:30] LABS: PH,URINE 7.5 (5.0-8.0); URINE APPEARANCE CLEAR; URINE BILIRUBIN NEGATIVE (NEGATIVE); URINE COLOR YELLOW; URINE GLUCOSE (UA) 2+ (NEGATIVE); URINE KETONE NEGATIVE (NEGATIVE); URINE LEUK ESTERASE NEGATIVE (NEGATIVE); URINE NITRITE NEGATIVE (NEGATIVE); URINE PROTEIN NEGATIVE (NEGATIVE)
[2024-04-20] MEDS: NALOXONE HCL 0.4 MG/ML VIAL IVPUSH ONE (13:31)
[2024-04-20 13:52] LABS: METHADONE, UR NEGATIVE (NEGATIVE); PHENCYCLIDINE,URINE NEGATIVE (NEGATIVE); URINE AMPHETAMINES NEGATIVE (NEGATIVE)
[2024-04-20 13:53] LABS: COCAINE, UR NEGATIVE (NEGATIVE); OPIATES, URI NEGATIVE (NEGATIVE); URINE BARBITURATES NEGATIVE (NEGATIVE); URINE BENZODIAZEPINES POSITIVE (NEGATIVE)
[2024-04-21 04:27] VITALS: BMI 24.3
[2024-04-21] MEDS: ENOXAPARIN NA (PORCINE) 40 MG/0.4 ML DISP.SYRIN SQ SCH (10:35)
[2024-04-21] MEDS: LOSARTAN POTASSIUM 50 MG TABLET PO SCH (10:36)
[2024-04-21] MEDS: metoPROLOL SUCCINATE 25 MG TAB.SR.24H (FP) PO SCH (10:36)
[2024-04-21] MEDS: SERTRALINE HCL 50 MG TABLET (FP) PO SCH (10:36)
[2024-04-21 12:35] LABS: BASO % 0.3 % (0-2.0); EOS % 2.4 % (0-4.5); HEMATOCRIT 36.2 % (35.4-49); HEMOGLOBIN 11.5 GM/dL (11.7-16.9); LYMPH % 27.9 % (8-40); MCH 30.9 pg (25.7-33.7); MCHC 31.7 g/dl (32.0-35.9); MEAN CELL VOLUME 97.3 fl (80-96); MEAN PLT VOLUME 8.5 fl (7.5-11.1); MONO % 5.7 % (3.8-10.2); NEUT % 63.7 % (42.8-82.8); PLATELET COUNT 165 10^3/uL (134-434); RBC 3.72 M/mm3 (4.00-5.60); RDW 18.7 % (11.9-15.9); WHITE BLOOD COUNT 5.8 K/mm3 (4.0-10.0)
[2024-04-21 12:54] LABS: POTASSIUM 4.4 mmol/L (3.5-5.1)
[2024-04-21 12:58] LABS: ALBUMIN 3.3 g/dl (3.4-5.0); BLOOD UREA NITROGEN 15.6 mg/dL (7-18); MAGNESIUM 2.2 mg/dL (1.8-2.4)
[2024-04-21 13:00] LABS: CREATININE 0.9 mg/dL (0.55-1.3)
[2024-04-21 13:02] LABS: BILIRUBIN,TOTAL 1.2 mg/dL (0.2-1); TOT PROT 7.3 g/dl (6.4-8.2)
[2024-04-21] MEDS: ATORVASTATIN CA 80 MG TABLET (FP) PO SCH (21:44)
[2024-04-22] MEDS: INSULIN (NOVOLOG) ASPART 100 UNITS/ML 10ML VIAL SQ SCH (16:24)
[2024-04-22] MEDS: MELATONIN 5 MG TABLETS PO PRN (21:23)
[2024-04-24] MEDS: ACETAMINOPHEN 500 MG TABLET (FP) PO ONE (02:26)
[2024-04-24] MEDS ORDERED: INSULIN ASPART SLIDING SCALE (NOVOLOG) 1 VIAL SQ ONE (21:43)
[2024-04-25] MEDS: traMADol HCL 50 MG TABLET PO PRN (10:16)
[2024-04-25] MEDS ORDERED: INSULIN ASPART SLIDING SCALE (NOVOLOG) 1 VIAL SQ ONE (12:49)
[2024-04-25 15:32] VITALS: BP 100/86; PULSE 90; RESP 20; TEMP 98.6
== END 2024-04-25 17:46 | DRG 74 ==
LOC: JER 11:08 → JERBED 13:10 → J4W 04-21 00:05 → JERBED 04-21 10:01 → J4W 04-21 10:09
PROVIDERS: ADMIT Internal Medicine; ATTEND Internal Medicine
DX: M54.10 Radiculopathy, site unspecified (principal); E11.9 Type 2 diabetes mellitus without complications; I10 Essential (primary) hypertension; E78.5 Hyperlipidemia, unspecified; F32.A Depression, unspecified; K21.9 Gastro-esophageal reflux disease without esophagitis; R29.6 Repeated falls; Z98.1 Arthrodesis status
CPT/HCPCS: 36415; 70450-TC; 71045-TC-FY; 80053; 80307; 81003; 82140; 82607; 82962; 83036; 83735; 84100; 84443; 84484; 85025; 87081; 87086; 87635; 93005; 93010; 97116-GP; 97162-GP; 99285-25

== ENCOUNTER 2024-08-11 16:12 | Emergency (ER) | payer OTHER, BC ==
[2024-08-11 16:36] VITALS: BP 122/78; PULSE 87; RESP 16; TEMP 98.2; BMI 53.1
== END 2024-08-11 19:50 | disposition home or self-care (01) ==
LOC: JER 16:12
DX: S09.90XA Unspecified injury of head, initial encounter (principal); W06.XXXA Fall from bed, initial encounter
CPT/HCPCS: 70450-TC; 82962; 99284-25

== ENCOUNTER 2025-01-19 13:27 | Inpatient (IN) | payer OTHER, BC ==
[2025-01-19] MEDS ORDERED: ONDANSETRON 4 MG/2 ML VIAL ONE (15:06)
[2025-01-19] MEDS ORDERED: PANTOPRAZOLE SODIUM 40 MG/100 ML BAG IVPB ONE (15:07)
[2025-01-19 15:11] LABS: ABSOLUTE IMMATURE GRANULOCYTES 0.03 x10^3/uL (0.0-0.031); BASOPHILS # 0.02 x10^3/uL (0.01-0.08); EOSINOPHIL % 0.1 % (0.8-7.0); EOSINOPHILS # 0.01 x10^3/uL (0.04-0.54); HEMATOCRIT 19.5 % (40.1-51.0); HEMOGLOBIN 5.7 g/dL (13.7-17.5); MCHC 29.2 g/dl (32.3-36.5); MEAN CELL VOLUME 91.5 fl (79.0-92.2); MEAN PLT VOLUME 9.8 fl (9.4-12.4); MONOCYTE # 0.55 x10^3/uL (0.30-0.82); MONOCYTE % 5.6 % (5.3-12.2); PLATELET COUNT # 281 x10^3/uL (163-337); RDW 19.2 % (12.2-16.6)
[2025-01-19 15:17] LABS: INR 1.31 (0.83-1.09); PROTHROMBIN TIME (PATIENT) 14.3 SEC (9.7-13.0)
[2025-01-19 15:20] LABS: ACTIVATED PTT 29.9 SECONDS (25.2-36.5)
[2025-01-19] MEDS: SODIUM CHLORIDE 0.9% 500 ML INFUS.BAG IV ONE (15:20)
[2025-01-19] MEDS: ONDANSETRON 4 MG/2 ML VIAL IVPUSH ONE (15:20)
[2025-01-19] MEDS: PANTOPRAZOLE SODIUM 40 MG VIAL IVPUSH ONE (15:20)
[2025-01-19 15:32] LABS: POTASSIUM 4.7 mmol/L (3.5-5.1)
[2025-01-19 15:35] LABS: CALCIUM 8.7 mg/dL (8.5-10.1)
[2025-01-19 15:36] LABS: ALBUMIN 2.7 g/dl (3.4-5.0); BLOOD UREA NITROGEN 17.3 mg/dL (7-18)
[2025-01-19 15:40] LABS: BILIRUBIN,TOTAL 0.2 mg/dL (0.2-1); TOT PROT 6.9 g/dl (6.4-8.2)
[2025-01-19] MEDS ORDERED: ALBUTEROL SO4 HFA INHALER IH PRN (16:19)
[2025-01-19] MEDS ORDERED: MELATONIN 5 MG TABLETS PO PRN (16:19)
[2025-01-19] MEDS: PANTOPRAZOLE SODIUM 80 MG in SODIUM CHLORIDE 100 ML IVPB SCH (17:40)
[2025-01-19 19:43] VITALS: BMI 51.2
[2025-01-19] MEDS: ATORVASTATIN CA 80 MG TABLET (FP) PO SCH (21:14)
[2025-01-19] MEDS: CARBIDOPA/LEVODOPA 25/100 TABLET (FP) PO SCH (21:14)
[2025-01-20 08:52] LABS: HEMATOCRIT 25.4 % (40.1-51.0); HEMOGLOBIN 8.2 g/dL (13.7-17.5); MCHC 32.3 g/dl (32.3-36.5); MEAN CELL VOLUME 82.7 fl (79.0-92.2); MEAN PLT VOLUME 9.4 fl (9.4-12.4); PLATELET COUNT # 222 x10^3/uL (163-337); RDW 17.9 % (12.2-16.6)
[2025-01-20 09:12] LABS: POTASSIUM 4.2 mmol/L (3.5-5.1)
[2025-01-20 09:16] LABS: ALBUMIN 2.6 g/dl (3.4-5.0); BLOOD UREA NITROGEN 16.4 mg/dL (7-18); CALCIUM 8.1 mg/dL (8.5-10.1)
[2025-01-20 09:19] LABS: CREATININE 0.7 mg/dL (0.55-1.3)
[2025-01-20 09:21] LABS: BILIRUBIN,TOTAL 0.9 mg/dL (0.2-1); TOT PROT 6.7 g/dl (6.4-8.2)
[2025-01-20] MEDS: LOSARTAN POTASSIUM 25 MG TABLET PO SCH (10:30)
[2025-01-20] MEDS: SERTRALINE HCL 50 MG TABLET (FP) PO SCH (10:30)
[2025-01-20] MEDS: metoPROLOL SUCCINATE 25 MG TAB.SR.24H (FP) PO SCH (10:30)
[2025-01-20] MEDS: traMADol HCL 50 MG TABLET PO PRN (22:49)
[2025-01-21] MEDS: ACETAMINOPHEN 325 MG TABLET (FP) PO PRN (05:50)
[2025-01-21 08:42] LABS: HEMATOCRIT 28.1 % (40.1-51.0); HEMOGLOBIN 9.1 g/dL (13.7-17.5); MCHC 32.4 g/dl (32.3-36.5); MEAN CELL VOLUME 83.6 fl (79.0-92.2); MEAN PLT VOLUME 9.6 fl (9.4-12.4); PLATELET COUNT # 234 x10^3/uL (163-337); RDW 18.2 % (12.2-16.6)
[2025-01-21 09:03] LABS: POTASSIUM 4.1 mmol/L (3.5-5.1)
[2025-01-21 09:22] LABS: CALCIUM 8.5 mg/dL (8.5-10.1)
[2025-01-21 09:23] LABS: BLOOD UREA NITROGEN 10.8 mg/dL (7-18); MAGNESIUM 1.9 mg/dL (1.8-2.4)
[2025-01-21 09:27] LABS: ALBUMIN 2.7 g/dl (3.4-5.0); BILIRUBIN,TOTAL 0.8 mg/dL (0.2-1)
[2025-01-21 09:30] LABS: CREATININE 0.6 mg/dL (0.55-1.3)
[2025-01-21] MEDS: IRON SUCROSE INJECTION 200 MG in SODIUM CHLORIDE 100 ML IVPB ONE ×2 (11:19→16:27)
[2025-01-21 16:31] LABS: Reticulocyte % 1.75 % (0.51-1.81)
[2025-01-21] MEDS: PANTOPRAZOLE 40 MG TABLET PO SCH (21:39)
[2025-01-22 08:39] LABS: ABSOLUTE IMMATURE GRANULOCYTES 0.05 x10^3/uL (0.0-0.031); BASOPHILS # 0.04 x10^3/uL (0.01-0.08); EOSINOPHILS # 0.39 x10^3/uL (0.04-0.54); HEMATOCRIT 32.2 % (40.1-51.0); HEMOGLOBIN 10.2 g/dL (13.7-17.5); MCHC 31.7 g/dl (32.3-36.5); MEAN CELL VOLUME 86.3 fl (79.0-92.2); MEAN PLT VOLUME 9.9 fl (9.4-12.4); MONOCYTE # 0.85 x10^3/uL (0.30-0.82); MONOCYTE % 8.7 % (5.3-12.2); PLATELET COUNT # 251 x10^3/uL (163-337); RDW 18.6 % (12.2-16.6)
[2025-01-22 09:39] LABS: POTASSIUM 4.2 mmol/L (3.5-5.1)
[2025-01-22 09:40] LABS: BLOOD UREA NITROGEN 12.4 mg/dL (7-18); CALCIUM 8.7 mg/dL (8.5-10.1)
[2025-01-22 09:44] LABS: CREATININE 0.7 mg/dL (0.55-1.3)
[2025-01-22] MEDS: IRON SUCROSE INJECTION 200 MG in SODIUM CHLORIDE 100 ML IVPB ONE (13:42)
[2025-01-22 15:33] LABS: HCV DIAGNOSTIC IN-HOUSE W/RFLX NON-REACTIVE (NONREACTIVE)
[2025-01-23 08:41] LABS: ABSOLUTE IMMATURE GRANULOCYTES 0.03 x10^3/uL (0.0-0.031); BASOPHILS # 0.04 x10^3/uL (0.01-0.08); EOSINOPHIL % 3.4 % (0.8-7.0); EOSINOPHILS # 0.33 x10^3/uL (0.04-0.54); HEMATOCRIT 28.7 % (40.1-51.0); HEMOGLOBIN 9.2 g/dL (13.7-17.5); MCHC 32.1 g/dl (32.3-36.5); MEAN CELL VOLUME 85.4 fl (79.0-92.2); MEAN PLT VOLUME 9.1 fl (9.4-12.4); MONOCYTE # 0.91 x10^3/uL (0.30-0.82); MONOCYTE % 9.5 % (5.3-12.2); PLATELET COUNT # 261 x10^3/uL (163-337); RDW 18.5 % (12.2-16.6)
[2025-01-23 08:56] LABS: POTASSIUM 3.5 mmol/L (3.5-5.1)
[2025-01-23 08:57] LABS: CALCIUM 8.4 mg/dL (8.5-10.1)
[2025-01-23 08:58] LABS: ALBUMIN 2.7 g/dl (3.4-5.0); BLOOD UREA NITROGEN 13.4 mg/dL (7-18)
[2025-01-23 09:01] LABS: CREATININE 0.7 mg/dL (0.55-1.3)
[2025-01-23 09:03] LABS: BILIRUBIN,TOTAL 0.9 mg/dL (0.2-1)
[2025-01-23 13:19] VITALS: BP 112/66; PULSE 95; RESP 17; TEMP 98.6
[2025-01-23 15:07] LABS: GLIADIN ANTIBODY IGA 9 units (0-19); GLIADIN ANTIBODY IGG 2 units (0-19); TRANSGLUTAMINASE IGG 5 U/mL (0-5)
== END 2025-01-23 12:58 | disposition home or self-care (01) | DRG 378 ==
LOC: JER 13:27 → JERBED 16:03 → J8W 18:43
PROVIDERS: ADMIT Family Medicine; ATTEND Family Medicine
PROC: 30233N1 Transfusion of Nonautologous Red Blood Cells into Peripheral Vein, Percutaneous Approach (ICD-10-PCS; 2025-01-19)
PROC: 0DB78ZX Excision of Stomach, Pylorus, Via Natural or Artificial Opening Endoscopic, Diagnostic (ICD-10-PCS; 2025-01-22)
PROC: 0DB98ZX Excision of Duodenum, Via Natural or Artificial Opening Endoscopic, Diagnostic (ICD-10-PCS; principal; 2025-01-22 11:00)
DX: K26.0 Acute duodenal ulcer with hemorrhage (principal); B37.81 Candidal esophagitis; K92.0 Hematemesis; E11.9 Type 2 diabetes mellitus without complications; D64.9 Anemia, unspecified; K29.40 Chronic atrophic gastritis without bleeding
CPT/HCPCS: 36415; 36430; 71045-TC-FY; 80048; 80053; 82378; 82728; 82784; 82962; 83036; 83516; 83540; 83550; 83690; 83735; 84484; 85025; 85027; 85610; 85730; 86038; 86140; 86705; 86803; 86850; 86900; 86901; 86922; 87340; 87517; 88104; 88305-TC; 88341-TC; 88342-TC; 93005; 93010; 99285-25; J1756; P9058